=== PATIENT | female | born 1970 | race Caucasian/White ===

== ENCOUNTER 2018-01-08 16:43 | Emergency (ER) | payer MEDICAID, SELFPAY ==
[2018-01-08 16:45] VITALS: BP 117/99; PULSE 90; RESP 15; TEMP 36.8; O2SAT 98; BMI 26.9
--- NOTE | 2018-01-08 17:03 | ED.VISSUMM ---
- ER Visit Summary Date of Service: 01/08/18 Chief Complaint: Right leg pain History of Present Illness: The patient is a 47 F presents to the emergency department with right leg pain. The patient does have the symptoms for the past month. She does have a history of diabetes that is poorly controlled. She states that she has a dull, burning pain down her right leg. It is worse in the morning. She denies any weakness. She has not had no trauma. She denies any back pain or trouble urinating. She states it is from the mid thigh down the leg. She has not taken anything for the pain. She states she never had pain like this before. It does not involve the left leg. It is not made worse with ambulation. She has no other claudication symptoms. Physical Examination: Vital signs reviewed General: Well-nourished, well-developed Head: Normocephalic, atraumatic Eyes: Pupils equal and reactive, extraocular muscles intact Neck, supple, no lymphadenopathy Heart: Regular rate and rhythm Respiratory: No distress, clear bilaterally Abdomen: Soft, nontender, nondistended, no peritoneal signs Back: Nontender Extremities: Nontender, no edema, no cords Skin: Normal color no rash Neuro: Alert and oriented, no focal or lateralizing deficits Test Results: [] Emergency Department Course and Treatment: The patient has normal pulses of the lower extremity. There is no pain with palpation. There are no palpable cords. Her symptoms are in a stocking glove type distribution. Her reflexes are normal. I do feel this is more of a peripheral neuropathy. I did assessment counselor patient she may need outpatient EMG. She will be started on Neurontin for pain control. She does have follow-up in place with Dr. Dill. She will be discharged home. Treatment Plan: [] Disposition: Discharge Impression:. Neuropathy right leg This note was generated with [employer] dictation software. It may contain incorrect words, spelling, and punctuation that were not noted in review of the chart prior to signing ED Disposition - Plan for ED Patient: Chief Complaint: Lower Extremity Injury Instructions: ED Neuropathy Peripheral Prescriptions: Gabapentin [Neurontin] 100 mg PO TID #30 cap Referrals: Ran Dill MD [Primary Care Provider] -
--- NOTE | 2018-01-08 17:06 | ED.DCSUM_ITS ---
- ER Visit Summary Date of Service: 01/08/18 Chief Complaint: Right leg pain History of Present Illness: The patient is a 47 F presents to the emergency department with right leg pain. The patient does have the symptoms for the past month. She does have a history of diabetes that is poorly controlled. She states that she has a dull, burning pain down her right leg. It is worse in the morning. She denies any weakness. She has not had no trauma. She denies any back pain or trouble urinating. She states it is from the mid thigh down the leg. She has not taken anything for the pain. She states she never had pain like this before. It does not involve the left leg. It is not made worse with ambulation. She has no other claudication symptoms. Physical Examination: Vital signs reviewed General: Well-nourished, well-developed Head: Normocephalic, atraumatic Eyes: Pupils equal and reactive, extraocular muscles intact Neck, supple, no lymphadenopathy Heart: Regular rate and rhythm Respiratory: No distress, clear bilaterally Abdomen: Soft, nontender, nondistended, no peritoneal signs Back: Nontender Extremities: Nontender, no edema, no cords Skin: Normal color no rash Neuro: Alert and oriented, no focal or lateralizing deficits Test Results: [] Emergency Department Course and Treatment: The patient has normal pulses of the lower extremity. There is no pain with palpation. There are no palpable cords. Her symptoms are in a stocking glove type distribution. Her reflexes are normal. I do feel this is more of a peripheral neuropathy. I did certified drug counselor patient she may need outpatient EMG. She will be started on Neurontin for pain control. She does have follow-up in place with Dr. Dill. She will be discharged home. Treatment Plan: [] Disposition: Discharge Impression:. Neuropathy right leg This note was generated with [employer] dictation software. It may contain incorrect words, spelling, and punctuation that were not noted in review of the chart prior to signing ED Disposition - Plan for ED Patient: Chief Complaint: Lower Extremity Injury Instructions: ED Neuropathy Peripheral Prescriptions: Gabapentin [Neurontin] 100 mg PO TID #30 cap Referrals: Ran Dill MD [Primary Care Provider] -
[2018-01-08 17:35] VITALS: BP 129/66; PULSE 54; RESP 16; O2SAT 98
== END 2018-01-08 17:36 | disposition home or self-care (01) ==
PROVIDERS: Emergency Provider Emergency Medicine; Family Provider Family Medicine; PCP Family Medicine
DX: E11.42 Type 2 diabetes mellitus with diabetic polyneuropathy (principal); E11.65 Type 2 diabetes mellitus with hyperglycemia; Z79.84 Long term (current) use of oral hypoglycemic drugs; Z79.02 Long term (current) use of antithrombotics/antiplatelets; Z79.899 Other long term (current) drug therapy
CPT/HCPCS: 99282

== ENCOUNTER 2018-03-02 18:07 | Emergency (ER) | payer MEDICAID, SELFPAY ==
[2018-03-02 18:09] VITALS: BP 113/92; PULSE 90; RESP 18; TEMP 36.7; O2SAT 98; BMI 26.2
[2018-03-02 19:52] LABS: Absolute Lymphocyte Count 3.31 X10^3/ul (0.83-4.51); Absolute Neutrophil Count 7.4 X10^3/uL (2.0-7.7); Basophil# 0.05 X10^3/uL; Basophil% 0.4 % (0-1); Eosinophil# 0.39 X10^3/uL; Eosinophils% 3.3 % (0-5); Hemoglobin 15.9 g/dl (12.0-15.0); Lymphocyte # 3.31 X10^3/ul (4.0); Lymphocyte % 28.2 % (19-41); Mean Corp Hgb Conc 33.8 g/gl (32-36); Mean Corpuscular Volume 94.6 fL (81-99); Mean Platelet Vol. 11.7 fl (6.2-12.0); Monocyte# 0.64 X10^3/uL; Monocyte% 5.4 % (0-10); Neutrophil # 7.35 X10^3/uL (2.7-7.7); Neutrophil % 62.6 % (47-70); Platelet Count 185 K/mm3 (150-450); RBC Distribution Width CV 12.5 % (11.6-14.6); RBC Distribution Width SD 42.9 fl (35.1-43.9); Red Blood Count 4.97 M/mm3 (4.2-5.4); White Blood Count 11.8 K/mm3 (4.4-11.0)
[2018-03-02 19:53] LABS: POSITIVE COUNT NO; POSITIVE DIFFERENTIAL NO; POSITIVE MORPHOLOGY NO
[2018-03-02 20:04] LABS: Anion Gap 6 (5-15); BUN 12 mg/dL (7-18); BUN/Creat Ratio 11.9 RATIO (10-20); Calcium,Total 9.2 mg/dL (8.5-10.1); Chloride 105 mmol/L (98-107); Creatinine, Serum 1.01 mg/dL (0.55-1.02); EST Glomerular Filtration Rate 63 mL/min (>60); Est Glom Filt Rate - Afr Amer 76 mL/min (>60); Estimated Creatinine Clearance 67.68 ml/min; Glucose 115 mg/dL (74-106); Potassium 3.7 mmol/L (3.5-5.1); Sodium Level 140 mmol/L (136-145)
[2018-03-02 20:06] LABS: Amphetamine Urine VISTA NEGATIVE (<1000 ng/mL); Barbiturate Urine VISTA NEGATIVE (< 200 ng/mL); Benzodiazepine Urine VISTA NEGATIVE (< 200 ng/mL); Cocaine Urine VISTA NEGATIVE (< 300 ng/mL); Ecstacy Urine VISTA NEGATIVE (< 500 ng/mL); Methadone Urine VISTA NEGATIVE (< 300 ng/mL); PCP Urine VISTA NEGATIVE (< 25 ng/mL); THC Urine VISTA NEGATIVE (< 50 ng/mL); Vista UDS pH Range 6
[2018-03-02 20:12] VITALS: RESP 17
[2018-03-02 20:27] VITALS: BP 109/80; PULSE 74; RESP 18; O2SAT 97
[2018-03-02 20:36] LABS: Pregnancy, Serum, hCG Quali. NEGATIVE Negative (0-9 Nonpreg)
[2018-03-02 22:02] VITALS: RESP 18
--- NOTE | 2018-03-02 23:14 | ED.DEP ---
ED Disposition - Plan for ED Patient: Chief Complaint: Depression Instructions: ED Depression Referrals: Ran Dill MD [Primary Care Provider] - Counseling,Center [GROUP OF PHYSICIANS] -
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
[2018-03-02 23:26] VITALS: BP 141/85; PULSE 75; RESP 16; O2SAT 97
== END 2018-03-02 23:28 | disposition home or self-care (01) ==
PROVIDERS: Emergency Provider Emergency Medicine; Family Provider Family Medicine; PCP Family Medicine
DX: F32.9 Major depressive disorder, single episode, unspecified (principal); E11.40 Type 2 diabetes mellitus with diabetic neuropathy, unspecified; F17.200 Nicotine dependence, unspecified, uncomplicated; Z79.84 Long term (current) use of oral hypoglycemic drugs; Z79.02 Long term (current) use of antithrombotics/antiplatelets; Z79.1 Long term (current) use of non-steroidal anti-inflammatories (NSAID); Z79.899 Other long term (current) drug therapy
CPT/HCPCS: 80048; 80307; 80320; 84703; 85025; 99283; G0480

== ENCOUNTER 2018-03-21 23:49 | Emergency (ER) | payer MEDICAID, SELFPAY ==
[2018-03-21 23:50] VITALS: BP 166/87; PULSE 85; RESP 18; TEMP 35.7; O2SAT 98; BMI 26.0
--- NOTE | 2018-03-22 00:46 | ED.VISSUMM ---
- ER Visit Summary Date of Service: 03/22/18 Chief Complaint: [Headache] History of Present Illness: The patient is a 47 F [who presents the emergency department with headache. It started earlier this evening. She took her home migraine medications but it did not help. She has photophobia associated with it and nausea. She has a long history of migraine headaches. This is very similar to what she has had in the past. It is 8 out of 10. It is behind her right eye. No trauma no fevers no balance disturbances no numbness or tingling. 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 She has a history of diabetes but does not check her blood sugars and hyperlipidemia.] Physical Examination: [] Blood pressure 166/87 WN WD NAD PERRL EOMI MMM NECK supple and nontender, no masses RRR no murmur rub or gallop, no peripheral edema, symmetric radial pulses CTAB no respiratory distress ABDOMEN is soft and nontender, normal bowel sounds, no distension, no rebound or guarding SKIN is warm and dry no rashes Alert and Oriented x3, CN II-XII in tact, no motor or sensory deficits, gait normal No lymphadenopathy Test Results: [] Emergency Department Course and Treatment: [This is similar to prior headaches patient has no new neurologic findings. She will be treated empirically for headache with saline Reglan and Benadryl and Toradol. Like sugar was checked. Patient's blood sugar was 126. On reevaluation her headache had resolved. This time I do think she is safe for discharge home. She was given precautions for which to return and invited to come back to the emergency department for any concerns. She was encouraged to follow-up with her primary physician.] Treatment Plan: [] Disposition: [Discharge] Impression: [Headache] This note was generated with [employer] dictation software. It may contain incorrect words, spelling, and punctuation that were not noted in review of the chart prior to signing ED Disposition - Plan for ED Patient: Chief Complaint: Headache Referrals: Ran Dill MD [Primary Care Provider] -
[2018-03-22] MEDS: Ketorolac 30 MG/ML Syringe IV (00:51)
[2018-03-22] MEDS: Metoclopramide 10 MG/2 ML Vial IV (00:51)
[2018-03-22] MEDS: 0.9% Normal Saline 1,000 ML 1000 ML IV (00:51)
[2018-03-22] MEDS: DiphenhydrAMINE 50 MG/ML Syringe 25 MG IV (00:51)
[2018-03-22 01:05] LABS: Bedside Glucose 126 mg/dL (70-110)
--- NOTE | 2018-03-22 01:35 | ED.DEP ---
ED Disposition - Plan for ED Patient: Chief Complaint: Headache Instructions: ED Cephalgia Unspecified Referrals: Ran Dill MD [Primary Care Provider] - 5-7 Days
[2018-03-22 01:40] VITALS: BP 114/77; PULSE 77; RESP 18; O2SAT 98
== END 2018-03-22 01:42 | disposition home or self-care (01) ==
LOC: ED 03-22 00:57
PROVIDERS: Emergency Provider Emergency Medicine; Family Provider Family Medicine; PCP Family Medicine
DX: G43.909 Migraine, unspecified, not intractable, without status migrainosus (principal); I69.328 Other speech and language deficits following cerebral infarction; E11.9 Type 2 diabetes mellitus without complications; I10 Essential (primary) hypertension; Z79.84 Long term (current) use of oral hypoglycemic drugs; Z79.02 Long term (current) use of antithrombotics/antiplatelets; Z79.899 Other long term (current) drug therapy
CPT/HCPCS: 82962; 96361; 96374; 96375; 99283; J7030

== ENCOUNTER 2018-03-29 16:26 | Observation (INO) | payer MEDICAID, SELFPAY ==
[2018-03-29 16:28] VITALS: BP 131/95; PULSE 78; RESP 16; TEMP 36.3; O2SAT 96; BMI 25.8
[2018-03-29] MEDS: HYDROmorphone 1 MG/ML Syringe IV (17:04)
[2018-03-29] MEDS: Ondansetron 4 MG/2 ML Vial IV ×2 (17:04→21:47)
[2018-03-29] MEDS: 0.9% Normal Saline 1,000 ML 1000 ML IV (17:04)
[2018-03-29 17:05] VITALS: BP 138/75; PULSE 75; RESP 14; O2SAT 98
[2018-03-29 17:17] LABS: Absolute Lymphocyte Count 2.86 X10^3/ul (0.83-4.51); Absolute Neutrophil Count 5.4 X10^3/uL (2.0-7.7); Basophil# 0.06 X10^3/uL; Basophil% 0.6 % (0-1); Eosinophil# 0.36 X10^3/uL; Eosinophils% 3.9 % (0-5); Hematocrit 42.1 % (37-47); Hemoglobin 14.4 g/dl (12.0-15.0); Lymphocyte # 2.86 X10^3/ul (4.0); Lymphocyte % 30.7 % (19-41); Mean Corp Hgb Conc 34.2 g/gl (32-36); Mean Corpuscular Hgb 32.1 pg (27.0-32.0); Mean Platelet Vol. 11.7 fl (6.2-12.0); Monocyte# 0.61 X10^3/uL; Monocyte% 6.5 % (0-10); Neutrophil # 5.43 X10^3/uL (2.7-7.7); Neutrophil % 58.2 % (47-70); POSITIVE COUNT NO; POSITIVE DIFFERENTIAL NO; POSITIVE MORPHOLOGY NO; Platelet Count 180 K/mm3 (150-450); RBC Distribution Width SD 40.6 fl (35.1-43.9); Red Blood Count 4.48 M/mm3 (4.2-5.4); White Blood Count 9.3 K/mm3 (4.4-11.0)
[2018-03-29 17:32] LABS: ALB/GLOB Ratio 0.9 RATIO (0.9-2.4); AST(SGOT) 15 U/L (15-37); Alanine Aminotransfer ALT/SGPT 37 U/L (13-56); Albumin, Serum 3.8 g/dL (3.2-5.0); Alkaline Phosphatase 84 U/L (45-117); Anion Gap 6 (5-15); BUN 15 mg/dL (7-18); BUN/Creat Ratio 16.4 RATIO (10-20); Chloride 106 mmol/L (98-107); Creatinine, Serum 0.91 mg/dL (0.55-1.02); EST Glomerular Filtration Rate 70 mL/min (>60); Est Glom Filt Rate - Afr Amer 85 mL/min (>60); Estimated Creatinine Clearance 72.31 ml/min; Globulin 4.3 g/dL (2.2-4.2); Glucose 108 mg/dL (74-106); Lipase 497 U/L (73-393); Potassium 4.1 mmol/L (3.5-5.1); Protein, Total 8.1 g/dL (6.4-8.2); Sodium Level 140 mmol/L (136-145)
[2018-03-29 18:23] LABS: Lactic Acid 0.8 mmol/L (0.4-2.0)
--- NOTE | 2018-03-29 18:58 | ED.VISSUMM ---
- ER Visit Summary Date of Service: 03/29/18 Chief Complaint: [Abdominal pain] History of Present Illness: The patient is a 47 F [presents the emergency department complaint of abdominal pain ?3 days. Patient rates her pain a 10 out of 10. Patient describes nausea and pain in the epigastric region. Patient denies any vomiting. She denies any diarrhea. Patient states that she has had pancreatitis before and feels just like that. Patient states that she had 3 shots of vodka on the eighth of this month as she is a recovering alcoholic. Patient denies any fevers at home. She denies urinary symptoms. Patient has had her gallbladder removed.] Physical Examination: [HEENT-PERRLA, EOMI. Cranial nerves II through XII grossly intact. TMs clear. Mucous membranes moist. No adenopathy. Cardiovascular-regular rate and rhythm without murmur or ectopy Lungs-clear to auscultation, chest wall stable without crepitus or subcu emphysema Abdomen-normoactive bowel sounds, soft. Patient has tenderness in the epigastric region with some guarding. There is no rebound, rigidity, or perineal signs. Extremities-intact ?4, normal range of motion, normal pulses, atraumatic] Test Results: [CBC with differential obtained showed a white count of 9.3, hemoglobin 14, hematocrit 42, platelets 180. Chemistries unremarkable. LFTs were normal. Lipase was 197. Nightly was normal at 0.8.] Emergency Department Course and Treatment: [She was given a liter normal same fluid bolus and was treated with Dilaudid and Zofran. Patient continues to complain of significant discomfort.] Treatment Plan: [Admit] Disposition: [Admit] Impression: [Abdominal pain Pancreatitis] This note was generated with [employer] dictation software. It may contain incorrect words, spelling, and punctuation that were not noted in review of the chart prior to signing ED Disposition - Plan for ED Patient: Chief Complaint: Abd Pain Referrals: Ran Dill MD [Primary Care Provider] -
[2018-03-29 19:11] VITALS: BP 136/70; PULSE 80; RESP 14; O2SAT 98; BMI 25.8
--- NOTE | 2018-03-29 19:39 | PCM.HP.STD ---
Problem List (1) Diabetes mellitus type 2 in obese Status: Chronic (2) CHRONIC ALCOHOL USE DEPENDENCE Status: Chronic (3) Alcoholic pancreatitis Status: Acute (4) Dyslipidemia Status: Chronic (5) Depression Status: Chronic (6) History of right sided stroke Status: Acute History of Present Illness Date of Admission: 03/29/18 Chief Complaint: Abdominal pain for 3 days The patient is a 47 year old F with history of alcoholic pancreatitis, diabetes mellitus type 2, stroke and multiple relapses with alcohol abuse came to ER with abdominal pain for last 3 days. Patient has constant upper abdominal pain in the epigastric and umbilical region which get worse with food and drinking water associated with nausea. Patient denies vomiting, hematemesis, melena or hematochezia. Patient last alcohol drink was on 03/21/2018 and denies any alcohol withdrawal seizures including seizures hallucinations or tremors. In ED, lipase was found 497, albumin 3.8, lactic acid 0.8 and potassium 4.1. Patient had a stroke in the past with left-sided weakness and numbness. [] Past Medical History Past Medical History (Chronic Problems): Chronic Problems Diabetes mellitus type 2 in obese (Chronic) CHRONIC ALCOHOL USE DEPENDENCE (Chronic) Dyslipidemia (Chronic) Depression (Chronic) Allergies azithromycin Allergy (Verified 03/21/18 23:53) Rash doxycycline Allergy (Verified 03/21/18 23:53) Rash Penicillins Allergy (Verified 03/21/18 23:53) Rash Home Medications: Ambulatory Orders Medication Instructions Recorded Clonazepam [Klonopin] 2 mg PO TID 06/15/14 Quetiapine Fumarate [Seroquel] 100 mg PO QHS 06/15/14 Propranolol HCl [Inderal] 40 mg PO BID 01/18/16 Clopidogrel Bisulfate [Plavix] 75 mg PO QHS 07/03/16 Glimepiride [Amaryl] 2 mg PO DAILY 01/09/17 Atorvastatin Calcium [Lipitor] 80 mg PO QHS 03/29/18 Surgical History: cholecystectomy, hysterectomy, tonsillectomy Smoking Status: Current every day smoker Tobacco Use: Cigarettes - *Family History Maternal History Items: No pertinent history Review of Systems Constitutional: Denies: Chills, Fever, Weight Change HEENT: Denies: Head Aches, Sinus Congestion, Sinus Drainage Cardiovascular: Denies: Chest Pain, Palpitations Respiratory: Denies: Cough, Shortness of breath at rest, Sputum production Gastrointestinal: Reports: Abdominal Pain, Nausea. Denies: Hematemesis, Hematochezia, Melena, Vomiting Genitourinary: Denies: Dysuria Musculoskeletal: Denies: Joint Pain, Joint Tenderness Skin: Denies: Rash, Wounds Neurological: Denies: Numbness, Tingling, Focal weakness Psychiatric: Denies: Anxiety, Depression, Homicidal Ideations, Suicidal Ideations Hematologic/ Lymphatic: Denies: Easy Bruising, Easy Bleeding VTE Information - Inpt Only VTE Present on Admission: No VTE Mechan Device Prophylaxis: None VTE Pharm Prophylaxis ordered?: Yes Patient Problems: Active and Suspected Problems Alcoholic pancreatitis (Acute) History of right sided stroke (Acute) - Physical Exam General: Alert, Oriented x3, Cooperative HEENT: Atraumatic, PERRLA, EOMI, Normocephalic Neck: Supple, No JVD, Negative Carotid Bruits Lungs: Clear to auscultation, Normal air movement Cardiovascular: Regular rate, Regular Rhythm, Normal S1, Normal S2, No murmurs Abdomen: Bowel Sounds Present, Soft, Non-Distended, Hypoactive Bowel Sounds, Tender - Tenderness present over epigastric and umbilical region Extremities: No edema, Capillary Refill Less than 3 Seconds Skin: No rashes, No breakdown Musculoskeletal: No Tenderness to Palpation of Joints or Extremities, Arthritic Changes Neurological: Cranial nerves II-XII grossly intact Psych/Mental Status: Normal Affect, Appropriate Vital Signs Temp Pulse Resp BP Pulse Ox 97.3 F L 80 14 136/70 H 98 03/29/18 16:28 03/29/18 19:11 03/29/18 19:11 03/29/18 19:11 03/29/18 19:11 Oxygen Delivery Method Room Air Weight: 160 lb 0.889 oz Body Mass Index (BMI) 25.8 Finger Stick Blood Glucose 126 Laboratory Tests Past 24 Hrs 03/29/18 03/29/18 03/29/18 17:05 17:05 17:05 WBC 9.3 RBC 4.48 Hgb 14.4 Hct 42.1 MCV 94.0 MCH 32.1 H MCHC 34.2 RDW 12.0 RDW Differential 40.6 Plt Count 180 MPV 11.7 Immature Gran % (Auto) 0.100 Neut % (Auto) 58.2 Lymph % (Auto) 30.7 [place] % (Auto) 6.5 Eos % (Auto) 3.9 Baso % (Auto) 0.6 Absolute Neuts (auto) 5.4 Absolute Lymphs (auto) 2.86 Total Counted Not Reportable Sodium 140 Potassium 4.1 Chloride 106 Carbon Dioxide 28.0 Anion Gap 6 BUN 15 Creatinine 0.91 Estim Creat Clear Calc 72.31 Est GFR (MDRD) Af Amer 85 Est GFR (MDRD) Non-Af 70 BUN/Creatinine Ratio 16.4 Glucose 108 H Lactic Acid 0.8 Calcium 9.0 Total Bilirubin 0.50 AST 15 ALT 37 Alkaline Phosphatase 84 Total Protein 8.1 Albumin 3.8 Globulin 4.3 H Albumin/Globulin Ratio 0.9 Lipase 497 H Assessment/Plan All Active Problems Alcoholic pancreatitis (Acute) History of right sided stroke (Acute) The patient is a 47 year old F with history of alcoholic pancreatitis, diabetes mellitus type 2, stroke and multiple relapses with alcohol abuse came to ER with abdominal pain for last 3 days. Patient has constant upper abdominal pain in the epigastric and umbilical region which get worse with food and drinking water associated with nausea. Patient denies vomiting, hematemesis, melena or hematochezia. Patient last alcohol drink was on 03/21/2018 and denies any alcohol withdrawal seizures including seizures hallucinations or tremors. In ED, lipase was found 497, albumin 3.8, lactic acid 0.8 and potassium 4.1. 1. Acute on recurrent alcoholic pancreatitis: Patient is being admitted on [facility] floor. IV fluid normal saline. We will keep the patient n.p.o. except sips and chips. Says the pain tomorrow a.m. Follow-up lipase tomorrow a.m.. Monitor electrolytes, magnesium and kidney function. Monitor intake and output. Pain control, and supportive treatment. Lipid profile tomorrow a.m. 2. Chronic alcohol use and dependence: Patient was advised to quit alcohol. Currently, not in withdrawal. load manager consult for counseling. 3. Diabetes mellitus type 2: A1c tomorrow a.m. Accu-Chek before meals and at bedtime and cover with NovoLog sliding scale. 4. Other comorbidities include dyslipidemia, history of a stroke on Plavix and statin, anxiety and depression: Home medication reconciliation done. Noncompliance is big issue. Multiple comorbidities complicates the present care and expect difficult and delay recovery This note was generated with Dragon dictation software. Every effort was made to ensure accuracy, however computerized metal roofing mechanic mistakes may persist. Code Visit Inpatient E&M: 90107 Init Hosp L3
[2018-03-29 20:28] VITALS: BP 134/85; PULSE 58; RESP 18; TEMP 36.6; O2SAT 96
[2018-03-29 20:29] VITALS: BMI 25.7
[2018-03-29 21:07] LABS: GGTP 24 U/L (5-55); Magnesium 2.1 mg/dL (1.6-2.6)
[2018-03-29] MEDS: Enoxaparin 40 MG/0.4 ML Syringe SC (21:43)
[2018-03-29] MEDS: Senna/Docusate Sodium 1 Tablet 2 TABLET PO (21:43)
[2018-03-29] MEDS: Pantoprazole Sodium 40 MG Tablet PO (21:43)
[2018-03-29] MEDS: Morphine 2 MG/ML Syringe IV (21:44)
[2018-03-29] MEDS: 0.9% NaCl Peripheral Flush Adult/Peds IV (21:47)
[2018-03-29 21:50] LABS: Bedside Glucose 106 mg/dL (70-110)
[2018-03-30] MEDS: 0.9% NaCl Peripheral Flush Adult/Peds IV ×3 (01:31→20:51)
[2018-03-30] MEDS: Morphine 2 MG/ML Syringe IV ×5 (01:31→20:49)
[2018-03-30] MEDS: Lactated Ringers 1,000 ML 200 ML IV ×2 (01:32→06:29)
[2018-03-30 01:40] VITALS: BP 105/69; PULSE 62; RESP 16; TEMP 36.4; O2SAT 95
[2018-03-30 06:24] LABS: Absolute Lymphocyte Count 2.91 X10^3/ul (0.83-4.51); Absolute Neutrophil Count 4.8 X10^3/uL (2.0-7.7); Basophil# 0.05 X10^3/uL; Basophil% 0.6 % (0-1); Eosinophil# 0.34 X10^3/uL; Eosinophils% 3.9 % (0-5); Hematocrit 39.6 % (37-47); Hemoglobin 13.2 g/dl (12.0-15.0); Lymphocyte # 2.91 X10^3/ul (4.0); Lymphocyte % 33.6 % (19-41); Mean Corp Hgb Conc 33.3 g/gl (32-36); Mean Corpuscular Hgb 31.9 pg (27.0-32.0); Mean Corpuscular Volume 95.7 fL (81-99); Mean Platelet Vol. 12.1 fl (6.2-12.0); Monocyte# 0.58 X10^3/uL; Monocyte% 6.7 % (0-10); Neutrophil # 4.78 X10^3/uL (2.7-7.7); Neutrophil % 55.1 % (47-70); Platelet Count 157 K/mm3 (150-450); RBC Distribution Width CV 11.9 % (11.6-14.6); RBC Distribution Width SD 40.8 fl (35.1-43.9); Red Blood Count 4.14 M/mm3 (4.2-5.4); White Blood Count 8.7 K/mm3 (4.4-11.0)
[2018-03-30 06:29] LABS: POSITIVE COUNT NO; POSITIVE DIFFERENTIAL NO; POSITIVE MORPHOLOGY NO
[2018-03-30 06:36] LABS: Bedside Glucose 96 mg/dL (70-110)
[2018-03-30 06:43] LABS: Anion Gap 6 (5-15); BUN 14 mg/dL (7-18); BUN/Creat Ratio 17.2 RATIO (10-20); Calcium,Total 8.2 mg/dL (8.5-10.1); Chloride 108 mmol/L (98-107); Cholesterol 110 mg/dL (200); Creatinine, Serum 0.82 mg/dL (0.55-1.02); EST Glomerular Filtration Rate 80 mL/min (>60); Est Glom Filt Rate - Afr Amer 97 mL/min (>60); Estimated Creatinine Clearance 80.25 ml/min; Glucose 90 mg/dL (74-106); High Density Lipoprotein 20 mg/dL; Lipase 77 U/L (73-393); Potassium 3.7 mmol/L (3.5-5.1); Sodium Level 143 mmol/L (136-145); Triglycerides 254 mg/dL; Very Low Density Lipoprotein 51 mg/dL (5-40)
[2018-03-30 07:13] VITALS: O2SAT 92
[2018-03-30 07:40] VITALS: BP 101/68; PULSE 53; RESP 16; TEMP 35.9; O2SAT 97
[2018-03-30] MEDS: Pantoprazole Sodium 40 MG Tablet PO (07:47)
[2018-03-30 07:52] LABS: Hemoglobin A1c 6.9 % (4.2-6.3)
--- NOTE | 2018-03-30 08:31 | PCM.PN.HOSP ---
Patient Problems: Active and Suspected Problems Alcoholic pancreatitis (Acute) History of right sided stroke (Acute) Subjective: 37-year-old lady with history of chronic alcohol abuse, diabetes mellitus type 2 recurrent pancreatitis who presented with abdominal pain and assessment of acute pancreatitis made admitted to regular nursing floor for further management 03/30/2018: Patient seen still complains of significant abdominal discomfort Objective: GENERAL: cooperative HEENT: Clear conjunctiva, NECK; supple, normal thyroid, CHEST: Clear to auscultation bilaterally, HEART: Regular S1 S2, no audible murmurs ABDOMEN: soft, epigastric discomfort RECTAL: deferred EXTREMITIES: No edema, no clubbing, SCIENCE MANAGER: Awake; no lateralizing signs. SKIN: No Rash Vitals/I&O's: Vital Signs Temp Pulse Resp BP Pulse Ox 96.7 F L 53 L 16 101/68 97 03/30/18 07:40 03/30/18 07:40 03/30/18 07:40 03/30/18 07:40 03/30/18 07:40 Oxygen Delivery Method Room Air Weight: 72.5 kg Body Mass Index (BMI) 25.7 Intake and Output for Last 24 Hours 03/28/18 03/29/18 03/30/18 23:59 23:59 23:59 Intake Total 1019 / 1019 Balance 1019 / 1019 Laboratory Results 03/29/18 21:43: POC Glucose 106 03/30/18 05:20: WBC 8.7, RBC 4.14 L, Hgb 13.2, Hct 39.6, MCV 95.7, MCH 31.9, MCHC 33.3, RDW 11.9, RDW Differential 40.8, Plt Count 157, MPV 12.1 H, Immature Gran % (Auto) 0.100, Neut % (Auto) 55.1, Lymph % (Auto) 33.6, [place] % (Auto) 6.7, Eos % (Auto) 3.9, Baso % (Auto) 0.6, Absolute Neuts (auto) 4.8, Absolute Lymphs (auto) 2.91, Total Counted Not Reportable 03/30/18 05:20: Sodium 143, Potassium 3.7, Chloride 108 H, Carbon Dioxide 29.0, Anion Gap 6, BUN 14, Creatinine 0.82, Estim Creat Clear Calc 80.25, Est GFR (MDRD) Af Amer 97, Est GFR (MDRD) Non-Af 80, BUN/Creatinine Ratio 17.2, Glucose 90, Calcium 8.2 L, Triglycerides 254 H, Cholesterol 110, LDL Cholesterol 39, VLDL Cholesterol 51 H, HDL Cholesterol 20 L, Lipase 77 03/30/18 05:20: Hemoglobin A1c 6.9 H 03/30/18 06:28: POC Glucose 96 Current Medications Acetaminophen (Tylenol) 650 mg PO Q4H PRN PRN PRN Reason: pain/fever Al Hydroxide/Mg Hydroxide (Mylanta Ii) 30 ml PO Q6H PRN PRN PRN Reason: Gastric burning Dextrose (D50w Syringe) 0 gm IV X1 PRN; Protocol PRN Reason: Hypoglycemia Enoxaparin Sodium (Lovenox) 40 mg SC DAILY@1000 GUILLERMO Last Admin: 03/29/18 21:43 Dose: 40 mg Glucagon () 1 mg IM .X1 PRN PRN Reason: Hypoglycemia Lactated Ringer's () 1,000 mls @ 200 mls/hr IV .Q5H [facility] Stop: 03/30/18 10:44 Last Admin: 03/30/18 06:29 Dose: 200 mls/hr Insulin Human Lispro (Humalog Kwikpen (Bkc)) 0 unit SQ ACHS GUILLERMO PRN Reason: Protocol Last Admin: 03/30/18 06:31 Dose: Not Given Magnesium Hydroxide (Milk Of Magnesia) 30 ml PO DAILY PRN PRN PRN Reason: Constipation Morphine Sulfate () 2 mg IV Q3H PRN PRN PRN Reason: SEVERE PAIN (6-10/10) Last Admin: 03/30/18 06:29 Dose: 2 mg Ondansetron HCl (Zofran) 4 mg IV Q6H PRN PRN PRN Reason: NAUSEA Last Admin: 03/29/18 21:47 Dose: 4 mg Pantoprazole Sodium (Protonix) 40 mg PO DAILY [facility] Last Admin: 03/30/18 07:47 Dose: 40 mg Promethazine HCl (Phenergan) 12.5 mg IV Q6H PRN PRN PRN Reason: NAUSEA/VOMITING Senna/Docusate Sodium (Senokot-S, Gia-Colace) 2 tablet PO BID [facility] Last Admin: 03/29/18 21:43 Dose: 2 tablet Sodium Chloride () 5 - 30 ml IV UD PRN PRN Reason: SALINE FLUSH Last Admin: 03/30/18 01:31 Dose: 10 ml Medical Necessity - Tobacco Use Smoking Status: Current every day smoker Tobacco Use: Cigarettes Assessment/Plan All Active Problems Alcoholic pancreatitis (Acute) History of right sided stroke (Acute) 37-year-old lady with history of chronic alcohol abuse, diabetes mellitus type 2 recurrent pancreatitis who presented with abdominal pain and assessment of acute pancreatitis made admitted to regular nursing floor for further management 1. Acute on chronic recurrent alcoholic pancreatitis: Patient has been admitted to regular nursing floor managed conservatively with bowel rest PPI, antinausea medication, and pain meds 2. Chronic alcohol dependence patient was counseled on cessation 3. Diabetes mellitus type 2: Did continue with home regimen in addition to Accu-Cheks before meals and at bedtime with sliding scale coverage 4. Dyslipidemia 5. History of previous CVA patient is on Plavix 6. DVT prophylaxis on enoxaparin Active Medications Acetaminophen (Tylenol) 650 mg PO Q4H PRN PRN PRN Reason: pain/fever Al Hydroxide/Mg Hydroxide (Mylanta Ii) 30 ml PO Q6H PRN PRN PRN Reason: Gastric burning Dextrose (D50w Syringe) 0 gm IV X1 PRN; Protocol PRN Reason: Hypoglycemia Enoxaparin Sodium (Lovenox) 40 mg SC DAILY@1000 GUILLERMO Last Admin: 03/29/18 21:43 Dose: 40 mg Glucagon () 1 mg IM .X1 PRN PRN Reason: Hypoglycemia Lactated Ringer's () 1,000 mls @ 200 mls/hr IV .Q5H GUILLERMO Stop: 03/30/18 10:44 Last Admin: 03/30/18 06:29 Dose: 200 mls/hr Insulin Human Lispro (Humalog Kwikpen (Bkc)) 0 unit SQ ACHS GUILLERMO PRN Reason: Protocol Last Admin: 03/30/18 06:31 Dose: Not Given Magnesium Hydroxide (Milk Of Magnesia) 30 ml PO DAILY PRN PRN PRN Reason: Constipation Morphine Sulfate () 2 mg IV Q3H PRN PRN PRN Reason: SEVERE PAIN (6-10/10) Last Admin: 03/30/18 06:29 Dose: 2 mg Ondansetron HCl (Zofran) 4 mg IV Q6H PRN PRN PRN Reason: NAUSEA Last Admin: 03/29/18 21:47 Dose: 4 mg Pantoprazole Sodium (Protonix) 40 mg PO DAILY [facility] Last Admin: 03/30/18 07:47 Dose: 40 mg Promethazine HCl (Phenergan) 12.5 mg IV Q6H PRN PRN PRN Reason: NAUSEA/VOMITING Senna/Docusate Sodium (Senokot-S, Gia-Colace) 2 tablet PO BID [facility] Last Admin: 03/29/18 21:43 Dose: 2 tablet Sodium Chloride () 5 - 30 ml IV UD PRN PRN Reason: SALINE FLUSH Last Admin: 03/30/18 01:31 Dose: 10 ml Code Visit Inpatient E&M: 49430 Subs Hosp L3
[2018-03-30] MEDS: Enoxaparin 40 MG/0.4 ML Syringe SC (10:28)
[2018-03-30] MEDS: Senna/Docusate Sodium 1 Tablet 2 TABLET PO (10:28)
--- NOTE | 2018-03-30 10:45 | CASEMGMT ---
NESSA MENDOZA NOTE: D/C PLAN: HOME. NESSA MENDOZA Face to Face with patient for initial transition planning/care coordination assessment. NESSA MENDOZA introduced self and role at [facility]. Patient resting in bed, alert and oriented. Patient willing to participate in assessment and is able to answer all questions appropriately. Care providers and demographics verified. Pt reports she is but has a boyfriend who is an alcoholic. Pt reports she has a history of drinking but i've been clean for 22 year. Pt reports that she was trying to get her boyfriend to stop drinking but when he wouldn't, she started to feel hopeless and stated she relapsed and started drinking. Pt reports her is aware of this situation and is aware she is in the hospital and stated, yes he knows but he isn't happy about it. Pt reports she is involved @ the [facility] and her Rehab Artifacts Conservator there is Marta. Pt reports she is still currently active/involved there and has appts there every and that she does not feel she need any further intervention or counseling services. Pt denies having any suicidal thoughts or ideations. Pt states she is living with a friend in [place] in a cabin and they are discussing options of making this her permanent residence. Pt states is independent with ambulation and ADL's and denies having any needs. Discussed Advanced Directives with patient and she states she is interested in talking with REYNOLD re: HPOA. Referral made to REYNOLD Woo. Pt wishes to discharge home, denies need for home health at this time. Pt states she has no further needs or concerns at this time. CM to follow for discharge planning needs that may arise.
[2018-03-30 12:00] LABS: Bedside Glucose 118 mg/dL (70-110)
--- NOTE | 2018-03-30 12:34 | CASEMGMT ---
Social Work Met with pt in room and introduced self. Pt requesting information on advance directives. SW provided verbal explanation of living will and health care power of contact center professional. Pt does not wish to complete at this time. Written information provided with instruction to notify SW if she would like to complete documents during hospital stay. No further needs at this time. MAGDALENO [place]
[2018-03-30 13:40] VITALS: BP 130/73; PULSE 50; RESP 18; TEMP 36.9; O2SAT 94
[2018-03-30] MEDS: Mag Hydrox/Al Hydrox/Simeth 30 ML UDC PO (13:41)
--- NOTE | 2018-03-30 15:41 | CHAPLAIN ---
Type of Pastoral Visit _x__ Initial Visit ___ Follow-up Visit ___ On-call Visit ___ General Patient Visit ___ Spiritual Assessment ___ Family Conference ___ Bereavement ___ Rapid Response ___ Code Blue ___ Other (describe below) Pastoral Care Referral From _x__ Patient ___ Family ___ Nurse ___ Physician ___ Database Support ___ Credit Underwriter ___ Other (describe below) Sacrament/Intervention _x__ Active listening ___ Anointing ___ Holiness ___ Bereavement ___ Communion _x__ Talya exploration ___ _x__ Life review _x__ Prayer ___ Reconciliation ___ Sacrament of Sick _x__ Supportive presence ___ Wedding ___ Other (describe below) Pastoral Comments patient speaks of many years of sobriety and then return to alcohol; pt speaks of her talya and understanding of 12 step program and God's role in her life
[2018-03-30 16:51] LABS: Bedside Glucose 165 mg/dL (70-110)
[2018-03-30 20:35] VITALS: BP 136/81; PULSE 50; RESP 16; TEMP 36.9; O2SAT 97
[2018-03-30] MEDS: Diphenoxylate/Atrop 1 Tablet PO (20:49)
[2018-03-30 23:56] LABS: Bedside Glucose 125 mg/dL (70-110)
[2018-03-31 02:20] VITALS: BP 121/81; PULSE 59; RESP 16; TEMP 36.8; O2SAT 97
[2018-03-31] MEDS: Mag Hydrox/Al Hydrox/Simeth 30 ML UDC PO (02:24)
[2018-03-31] MEDS: 0.9% NaCl Peripheral Flush Adult/Peds IV ×2 (02:24→06:42)
[2018-03-31] MEDS: Morphine 2 MG/ML Syringe IV ×2 (02:24→06:41)
[2018-03-31 06:51] LABS: Bedside Glucose 109 mg/dL (70-110)
[2018-03-31 07:02] VITALS: O2SAT 92
--- NOTE | 2018-03-31 08:30 | PCM.DC ---
- Discharge Diagnoses Current Active Problems: Current Active and Chronic Problems Diabetes mellitus type 2 in obese (Chronic) CHRONIC ALCOHOL USE DEPENDENCE (Chronic) Alcoholic pancreatitis (Acute) Dyslipidemia (Chronic) Depression (Chronic) History of right sided stroke (Acute) You will use the following diet at home:: Fluid restricted (specify 2000 mls, 1500 mls) - 1800 Your food should be the consistency of: Regular Discharge Activity: Return to Normal Activity Allergies/Adverse Reactions: Allergies azithromycin Allergy (Verified 03/21/18 23:53) Rash doxycycline Allergy (Verified 03/21/18 23:53) Rash Penicillins Allergy (Verified 03/21/18 23:53) Rash Medications to take at Discharge Clonazepam [Klonopin] 2 mg PO TID 06/15/14 Quetiapine Fumarate [Seroquel] 100 mg PO QHS 06/15/14 Propranolol HCl [Inderal (Beta Valencia)] 40 mg PO BID 01/18/16 Clopidogrel Bisulfate [Plavix] 75 mg PO QHS 07/03/16 Glimepiride [Amaryl] 2 mg PO DAILY 01/09/17 Atorvastatin Calcium [Lipitor] 80 mg PO QHS 03/29/18 Acetaminophen [Tylenol Tablet] 650 mg PO Q4H PRN PRN tablet 03/31/18 Pantoprazole Sodium [Protonix] 40 mg PO DAILY #30 tab 03/31/18 The following prescriptions were given: Pantoprazole Sodium [Protonix] 40 mg PO DAILY #30 tab Primary Care Physician: Ran Dill MD [Primary Care Provider] - Test Results: Test results from this visit will be discussed in further detail at your follow-up appointment, if applicable. Proposed Discharge Date: 03/31/18
--- NOTE | 2018-03-31 08:36 | PCM.DC.SUM ---
Discharge Date and Diagnosis - Problem List Patient Problems: Active and Suspected Problems Alcoholic pancreatitis (Acute) History of right sided stroke (Acute) Date of Admission: 03/29/18 Date of Discharge: 03/31/18 - Primary Discharge Diagnosis Active and Suspected Problems Alcoholic pancreatitis (Acute) History of right sided stroke (Acute) - Secondary Discharge Diagnosis Chronic Problems Diabetes mellitus type 2 in obese (Chronic) CHRONIC ALCOHOL USE DEPENDENCE (Chronic) Dyslipidemia (Chronic) Depression (Chronic) Hospital Course and Treatment Summary of Care Provided: 37-year-old lady with history of chronic alcohol abuse, diabetes mellitus type 2 recurrent pancreatitis who presented with abdominal pain and assessment of acute pancreatitis made admitted to regular nursing floor for further management 1. Acute on chronic recurrent alcoholic pancreatitis: Patient has been admitted to regular nursing floor managed conservatively with bowel rest PPI, antinausea medication, and pain meds. Patient condition did improve and was discharged home after tolerating regular meals 2. Chronic alcohol dependence patient was counseled on cessation 3. Diabetes mellitus type 2: Did continue with home regimen in addition to Accu-Cheks before meals and at bedtime with sliding scale coverage 4. Dyslipidemia 5. History of previous CVA with residual right upper extremity weakness; patient is on Plavix 6. DVT prophylaxis on enoxaparin Discharge Activity: Return to Normal Activity Home Medications: Medications to take at Discharge Clonazepam [Klonopin] 2 mg PO TID 06/15/14 Quetiapine Fumarate [Seroquel] 100 mg PO QHS 06/15/14 Propranolol HCl [Inderal (Beta Valencia)] 40 mg PO BID 01/18/16 Clopidogrel Bisulfate [Plavix] 75 mg PO QHS 07/03/16 Glimepiride [Amaryl] 2 mg PO DAILY 01/09/17 Atorvastatin Calcium [Lipitor] 80 mg PO QHS 03/29/18 Acetaminophen [Tylenol Tablet] 650 mg PO Q4H PRN PRN tablet 03/31/18 Pantoprazole Sodium [Protonix] 40 mg PO DAILY #30 tab 03/31/18 Following Prescrptions Were Given to Patient: Pantoprazole Sodium [Protonix] 40 mg PO DAILY #30 tab Primary Care Physician: Ran Dill MD [Primary Care Provider] - Disposition: Home Minutes spent on discharge:: 35 Patient Condition:: Stable Medical Necessity - Tobacco Use Smoking Status: Current every day smoker Tobacco Use: Cigarettes Meaningful Use Info Meaningful Use Diagnoses (Choose all that apply): None applicable Code Visit Inpatient E&M: 66975 Disch Hosp
[2018-03-31 09:24] VITALS: BP 109/63; PULSE 69; RESP 16; TEMP 36.4; O2SAT 99
[2018-03-31] MEDS: Pantoprazole Sodium 40 MG Tablet PO (09:29)
[2018-03-31 12:11] LABS: Bedside Glucose 178 mg/dL (70-110)
== END 2018-03-31 12:30 | disposition home or self-care (01) ==
LOC: ED 17:28 → MS3 19:51
PROVIDERS: Admitting Provider Internal Medicine; Emergency Provider Emergency Medicine; Family Provider Family Medicine; PCP Family Medicine; Visit Provider Internal Medicine
DX: K85.20 Alcohol induced acute pancreatitis without necrosis or infection (principal); E11.9 Type 2 diabetes mellitus without complications; E78.5 Hyperlipidemia, unspecified; F32.9 Major depressive disorder, single episode, unspecified; Z79.899 Other long term (current) drug therapy; Z79.02 Long term (current) use of antithrombotics/antiplatelets; K86.1 Other chronic pancreatitis; F10.20 Alcohol dependence, uncomplicated; I69.351 Hemiplegia and hemiparesis following cerebral infarction affecting right dominant side; F17.210 Nicotine dependence, cigarettes, uncomplicated; Z91.19 Patient's noncompliance with other medical treatment and regimen; F41.9 Anxiety disorder, unspecified
CPT/HCPCS: 36415; 80048; 80053; 80061; 82962; 82977; 83036; 83605; 83690; 83735; 85025; 96361; 96374; 96375; 96376; 97802; 99218; 99282; 99406; J7030; J7120; A4216; G0378; J2405

== ENCOUNTER 2018-05-02 09:00 | Outpatient (RCR) | payer MEDICAID, SELFPAY ==
--- NOTE | 2018-05-02 10:03 | BH.SGPN.GN ---
Behaviors/Verbalizations/Mental Status: []Client alert and oriented, disheveled appearance. Eye contact good. Motor activity slowed. Speech within normal limits. Affect flat, mood dysthymic Thoughts linear, logical, no signs of hallucinations or delusions. Client Response/Progress/Benefit: []Client responded well to session, quiet, but participating when prompted. Client discussed things in life that keep people stuck from obtaining mental wellness. Client listed things she would like to get rid of in her life that are holding her back from improved mental wellness. Client identified ?love for someone who doesn?t deserve it,? fear of hurting, not being in control, depression, and anxiety. Client shared if she removed these things she would feel confident. Client participated in the activity that promoted emotional release of things holding client back. Client reported the activity helped client relieve emotions in the moment and feel empowered. Client appeared to benefit from identifying what she would like to remove from her life in order to obtain improved mental wellness.
--- NOTE | 2018-05-02 11:05 | BH.SGPN.GN ---
Behaviors/Verbalizations/Mental Status: []Client alert and oriented, disheveled appearance. Eye contact good. Motor activity slowed. Speech within normal limits. Affect flat, mood dysthymic. Thoughts linear, logical, no signs of hallucinations or delusions. Client Response/Progress/Benefit: []Client responded well to session, participating when prompted. Client created a 30-day plan to help client get rid of one of the stressors holding her back from improved mental wellness. Client?s 30-day plan was ?no more? lack of self-care. Client stated she picked this stressor because it client reports she ?always puts others before me? which causes client to feel burnout. Client appeared to benefit from creating a 30-day action plan. No progress at time this as it is client?s first day in IOP. Client to continue IOP to prevent decompensation and reduce depression.
--- NOTE | 2018-05-03 09:05 | BH.SGPN.GN ---
Behaviors/Verbalizations/Mental Status: [] Pt eye contact fair, casually dressed, motor activity slowed, speech normal rate and tone, mood dysthymic, constricted affect (unclear if pt's hx of stroke contributes to limited expression of emotions), thoughts linear and logical, no evidence of delusions or hallucinations. Reviewed client?s symptom tracker, no signs of suicidal ideation, plan, or intent as of today. Client Response/Progress/Benefit: []Pt reported yesterday was her first day in the program, which went really well. Pt shared still feeling a bit anxious, but believes this program can be helpful. Pt shared a positive yesterday was getting a chance to spend time with her neighbor. Pt reported she often doesn't get to do anything outside the home because she tries to hide what goes on in her home with her boyfriend. Pt elaborated her boyfriend has OCD and lots of medical problems from years of alcoholism. Pt reported due to the difficulties inside the home she tends to stay inside and not do much. Pt reported she did go with her boyfriend to his step-moms house and had a positive time. Pt reported one of her biggest stressors is her boyfriend. Pt has insight into how her boyfriends actions are impacting her functioning. Pt seemed to benefit from support from peers. Pt to continue IOP level of care to decrease depression, improve daily functioning, and prevent decompensation. Narrative Note: []
--- NOTE | 2018-05-03 10:09 | BH.SGPN.GN ---
Behaviors/Verbalizations/Mental Status: []Client alert and oriented, casual dress. Eye contact good. Motor activity appropriate. Speech within normal limits. Affect congruent, mood euthymic. Thoughts linear, logical, no signs of hallucinations or delusions. Client Response/Progress/Benefit: []Client responded well to session, attentive in discussion and taking notes. Client created a visual representation of her current and desired realities in regards to mental wellness. In client?s current reality client described struggling to feel capable of managing all of her stressors and feeling overwhelmed by guilt. Shared desired reality is feeling more capable of communicating with supports and setting healthier boundaries, as well as spending more time on self-care. Client appeared to benefit from gaining awareness of what her current and desired realities look like as well as reflecting on progress she has made. Client to continue IOP to promote gains and increase consistency of healthy coping and communication skills. Narrative Note: []
--- NOTE | 2018-05-03 11:15 | BH.SGPN.GN ---
Behaviors/Verbalizations/Mental Status: []Client alert and oriented, casual dress. Eye contact good. Motor activity appropriate. Speech within normal limits. Affect congruent, mood anxious and euthymic. Thoughts linear, logical, no signs of hallucinations or delusions. Client Response/Progress/Benefit: []Client responded well to session, actively listening throughout. With assistance, client identified barriers in client?s control that are keeping her from getting to desired reality such as negative thinking, guilt, and lack of motivation. Client engaged in the group activity and was able to develop strategies to help overcome these barriers. Client reflected on the activity and shared importance of assistance from others on overcoming barriers. Client set a goal to overcome the barrier of negative self-talk by using affirmations and challenging negative thoughts. Client appeared to benefit from problem-solving barriers in the moment. Progress noted as shown by client?s increased engagement and report of reduced depression. Recommended continued IOP tx to improve communication, decrease anxiety, and improve mood regulation. Narrative Note: []
--- NOTE | 2018-05-04 09:05 | BH.SGPN.GN ---
1 Behaviors/Verbalizations/Mental Status: [] Pt eye contact fair, casually dressed, motor activity slowed, speech normal rate and tone, mood dysthymic and agitated, constricted affect, thoughts linear and intact, no evidence of delusions or hallucinations. Reviewed client?s symptom tracker, no signs of suicidal ideation, plan, or intent as of today. Client Response/Progress/Benefit: [] Client reported she is feeling agitated and irritable this morning. Client shared her living situation is contributing to her agitation. Client elaborated that her boyfriend has OCD and is frustrated that when she leaves the house and asked him to complete certain house task when she gets back he has not done anything. Client shared she questions if she is expecting too much of them, however when she thinks about it she even showed him yesterday how to wash the dishes and he still did not complete the task. Client reported just feeling completely frustrated with her boyfriend and unsure of what she needs to do about it. Client reported 1 think she can do this weekend is to read because it something that she really enjoys doing for herself. Client living situation she is to be a barrier to treatment progress. Client to continue IOP level of care to stabilize moods, increased healthy coping, and prevent decompensation. Narrative Note: []
--- NOTE | 2018-05-04 10:12 | BH.SGPN.GN ---
Behaviors/Verbalizations/Mental Status: []Client alert and oriented, casual dress, hygiene fair. Eye contact good. Motor activity slowed. Speech within normal limits. Affect constricted, mood anxious, depressed. Thoughts linear, logical, no signs of hallucinations or delusions. Client Response/Progress/Benefit: []Client responded well to session, contributing to discussion. Client discussed coping skills with the group and shared coping skills help people deal with stress and one learns coping skills from childhood. ?Client shared learning to weigh the pros and cons can help one more effectively cope. Client participated in the group activity and recognized that when the group did not succeed they blamed one another. Client shared this can connect to coping with situations in life ?because it?s harder to cope when we are frustrated.? Client appeared to benefit from learning about how one learns coping skills and from using in the moment coping skills. Client to continue IOP to prevent decompensation and increase boundary setting.
--- NOTE | 2018-05-04 11:12 | BH.SGPN.GN ---
Behaviors/Verbalizations/Mental Status: []Client alert and oriented, dress casual. Eye contact fair. Motor activity appropriate. Speech within client's baseline. Affect constricted, mood dysthymic, anxious. Thoughts linear, logical, no signs of hallucinations or delusions. Client Response/Progress/Benefit: []Client responded well to session, engaged through note-taking and sharing when prompted. Client listened as the group discussed different categories of coping skills and reported understanding the importance of having a variety of coping skills. Client created a coping skills menu of coping skills client would like to start incorporating to improve mood and reduce anxiety. Client?s menu included listening to music, writing in a journal, reading, walking, and scheduling time for things client has enjoyed in the past. Client appeared to benefit from gaining numerous coping skills and from learning how each coping skill category benefits mental health. Client to continue IOP to prevent decompensation and increase mood stability.
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
--- NOTE | 2018-05-04 13:15 | BH.DR.ITP ---
Initial Treatment Plan - Patient Information Visit Information: ADMISSION DATE: EXPECTED LOS: 4-6 weeks Diagnoses:: Bipolar type II F 31.81 - Problems/Symptoms Problem #1:: Mood instability Symptom:: Depression, anhedonia, decreased energy, difficulty concentrating, biologic disruption of sleep and appetite Problem #2:: Anxiety Symptom:: Rumination, panic, intrusive traumatic memories
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
--- NOTE | 2018-05-07 10:12 | BH.SGPN.GN ---
Behaviors/Verbalizations/Mental Status: []Client alert and oriented, casually dressed and groomed. Eye contact good. Motor activity appropriate. Speech within normal limits. Affect congruent, mood anxious, euthymic. Thoughts linear, logical, no signs of hallucinations or delusions. Client Response/Progress/Benefit: []Pt was an active participant in discussion and activity as evidenced by pt listening throughout and taking notes. Group worked together to come up with common negative forces in their lives which can hold them back from growth. Negative forces included: mental illness, negative thoughts, toxic people, and too many responsibilities. Group then worked together to identify common positive forces which help us grow. These included: Healthy coping skills, positive support, self-care, positive self-talk and asking for help/IOP tx. Pt reported agreeing with other?s definitions of personal growth. Shared that setting boundaries is helping her grow but is difficult to do. Pt was attentive during psychoeducation on the importance of utilizing many aspects of positive forces to help one grow. Benefited from group with increased insight and awareness on the impact of negative and positive forces on mental wellness. Progress noted in increased insight, however continues to struggle with consistent application of materials outside tx environment. Recommended continued tx to reduce mental health sx severity, increase positive change behaviors, and prevent decompensation. Narrative Note: []
--- NOTE | 2018-05-08 08:25 | BH.COMM ---
Communication Note - Communication with Client Communication Note: Pt called in and canceled for IOP today
--- NOTE | 2018-05-09 16:19 | BH.COMM ---
Communication Note - Communication with Client Communication Note: Therapist called client as she no called/no showed for IOP today. Client shared she is sick which was why she did not make it into group today. Client reports plan to attend IOP tomorrow for group and individual sessions should client feel better. Client encouraged to call if she cannot attend tomorrow.
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
--- NOTE | 2018-05-10 14:15 | BH.COMM ---
Communication Note - Communication with Client Communication Note: Therapist attempted to call client's outpatient therapist, Ratna Gayle, at [facility] for continuity of care purposes. Therapist was unable to reach Ratna and left a message.
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
--- NOTE | 2018-05-10 14:19 | BH.MTP ---
[facility] - Patient Information Program Physician:: Kayla Garcia Primary Therapist:: Shahana Garg - Psychiatric Diagnoses Psychiatric Diagnoses:: Bipolar 2 disorder; PTSD; Alcohol use disorder-partial remission; Nicotine use disorder Diagnosis Code(s):: F 31.81 - Estimated LOS Estimated LOS (in weeks):: 6 Problem/Goal #1 - Problem/Goal #1 Stated Goal:: Client will increase mood stability and decrease depressive symptoms and isolation due to Bipolar Disorder. Description of Barriers: Client identifies her current relationship with her boyfriend as toxic but shares feeling unable to leave him which may negatively impact client's mental health and functioning. Client is a recovering alcoholic who has been sober for 21 years, but she had a recent relapse in March. Client endorses numerous negative thoughts of self, low self-esteem, and difficulty setting boundaries. Client reports guilt about multiple issues which leads to rumination. Client shared limited social supports besides her which increases isolation and depressed mood. Client identifies money as a barrier to seeking possible positive supports. Additionally, client has several health issues that impact functioning including diabetes, history of stroke, and pancreatitis. Functional Impact: Client is a 47-year-old female referred by individual therapist, Ruthann Gayle, to the behavioral medicine [facility] for mood symptoms and anxiety. Client reports her symptoms have worsened due to relationship issues. Client reports a long-standing history of mood symptoms consistent with bipolar disorder since her teenage years. Client reports a history of manic episodes lasting up to 4 days in which she has increased irritability and anger, decreased sleep, increased impulsivity and promiscuity. Client reports her last manic episode was a few months ago. Client currently endorses a depressed mood with feelings of sadness, anhedonia, decreased energy, and difficulty concentrating. Client reports negative self-talk, low self-esteem, and isolation. Client also reports ruminative anxiety about dynamics with her live-in boyfriend and has panic attacks 2-3 times per month. Client is a recovering alcoholic and has been sober for 21 years, but recently had a relapse due to worsening depressive symptoms. Client has history of past trauma with intrusive traumatic memories, hypervigilance and avoidance. Client stated her symptoms are impacting her ability to function at her baseline and her overall quality of life. Goal Relevant Strengths/Supports: Client is kind, empathetic, and quick to connect with peers. Client appears motivated to work on improving her mental health and functioning while maintaining sobriety. Client has overcome numerous hardships in her life and demonstrates resilience. Client reports 21 years of sobriety and is active in AA. Client is aware that her current relationship with her boyfriend is toxic which demonstrates good insight. Client has an outpatient therapist at [facility] and identifies her as a positive support. - Objectives Objective #1 Stated Objective: Client will identify and replace 2-3 negative thinking patterns that mediate feelings of self-blame, low self-esteem, and negative core beliefs to reduce depressive symptoms as shown by a reduced depression score on the DSM-5 cross-cutting measure. Interventions: Therapist will assist client in developing an awareness of the cognitive messages that reinforce depressive, self-blaming thinking. Therapist will help client gain awareness of how she formed negative core beliefs and the impact trauma can have on self-talk. Therapist will also assist client in challenging, reframing, and replacing negative thinking patterns. Therapist will provide psychoeducation on depression and help client increase awareness of warning signs and triggers. Therapist will promote client self-empowerment and self-esteem by helping client identify strengths, personal resilience factors, and positives of boundary setting. Discharge Criteria: Client will have achieved this goal when can identify at least 2 negative thinking patterns, replace negative thinking with more positive, affirmative messages and show a reduction in DSM-5 cross-cutting symptom measure score. Target Date: 06/13/18 Review Date: 06/01/18 Status: open Objective #2 Stated Objective: Client will increase social activity to at least one additional activity per week to reduce isolation and increase positive supports. Interventions: Therapist will help client explore social connection opportunities, and assist client identifying the benefits of increased social engagement. Therapist will assist client in setting weekly goals to get client out of the house and engaging in activities she enjoys. Therapist will provide education on maintenance cycles for depression and help client learn how to break unhealthy maintenance cycles. Therapist will discuss healthy versus unhealthy relationships and supports and how supports impact mental health progress. Therapist will provide area resources that promote emotional well-being and offer positive support. Discharge Criteria: Client will have achieved this objective when can identify attending at least one social activity of interest weekly and report reduced isolation. Target Date: 06/13/18 Review Date: 06/01/18 Status: open Problem/Goal #2 - Problem/Goal #2 Stated Goal:: Client will decrease frequency, duration, and intensity of anxiety, rumination, and panic so daily functioning is not impaired. Description of Barriers: Client identifies her current relationship with her boyfriend as toxic but shares feeling unable to leave him which may negatively impact client's mental health and functioning. Client is a recovering alcoholic who has been sober for 21 years, but she had a recent relapse in March. Client endorses numerous negative thoughts of self, low self-esteem, and difficulty setting boundaries. Client reports guilt about multiple issues which leads to rumination. Client shared limited social supports, besides her , which increases isolation and depressed mood. Client identifies money as a barrier to seeking possible positive supports. Additionally, client has several health issues that impact functioning including diabetes, history of stroke, and pancreatitis. Functional Impact: Client is a 47-year-old female referred by individual therapist, Ruthann Gayle, to the behavioral medicine [facility] for mood symptoms and anxiety. Client reports her symptoms have worsened due to relationship issues. Client reports a long-standing history of mood symptoms consistent with bipolar disorder since her teenage years. Client reports a history of manic episodes lasting up to 4 days in which she has increased irritability and anger, decreased sleep, increased impulsivity and promiscuity. Client reports her last manic episode was a few months ago. Client currently endorses a depressed mood with feelings of sadness, anhedonia, decreased energy, and difficulty concentrating. Client reports negative self-talk, low self-esteem, and isolation. Client also reports ruminative anxiety about dynamics with her live-in boyfriend and has panic attacks 2-3 times per month. Client is a recovering alcoholic and has been sober for 21 years, but recently had a relapse due to worsening depressive symptoms. Client has history of past trauma with intrusive traumatic memories, hypervigilance and avoidance. Client stated her symptoms are impacting her ability to function at her baseline and her overall quality of life. Goal Relevant Strengths/Supports: Client is kind, empathetic, and quick to connect with peers. Client appears motivated to work on improving her mental health and functioning while maintaining sobriety. Client has overcome numerous hardships in her life and demonstrates resilience. Client reports 21 years of sobriety and is active in AA. Client is aware that her current relationship with her boyfriend is toxic which demonstrates good insight. Client has an outpatient therapist at [facility] and identifies her as a positive support. - Objectives Objective #1 Stated Objective: Client will identify 2-3 cognitive distortions or mistaken beliefs that lead to rumination and learn 2-3 ways to manage these thoughts to reduce anxiety as evidenced by a reduction of DSM-5 cross cutting symptom measure scores. Interventions: Therapist will provide education on the most common cognitive distortions and teach client the connection between thoughts, emotions, and feelings. Therapist will assist client in identifying, challenging, and replacing dysfunctional thoughts with positive, more realistic thoughts. Therapist will use CBT and DBT techniques to help client gain awareness of thinking errors and learn how to more effectively handle negative thoughts. Therapist will help client problem-solve current stressors and identify solutions. Discharge Criteria: Client will have accomplished this goal when can identify at least 2 cognitive distortions and at least 2 coping skills to manage negative thoughts. Client will also be able to report reduction of anxiety symptoms on the DSM-5 symptom measure. Target Date: 06/13/18 Review Date: 06/01/18 Status: open Objective #2 Stated Objective: Client will identify 2-3 anxiety and trauma triggers and 2 calming coping skills to use when feeling anxious. Interventions: Therapist will help client increase awareness of anxiety and trauma triggers and educate client on the ways anxiety impacts overall health. Therapist will teach client various calming strategies to promote emotional regulation and reduction of anxiety. Therapist will assist client in identifying stressors and teach client techniques to reduce, remove, or accept stressors to reduce anxiety. Therapist will discuss the importance of self-care, healthy relationships, and boundaries. Discharge Criteria: Client will have accomplished this goal when can report at least 2 triggers for anxiety and PTSD and state using 2 calming strategies to manage symptoms. Target Date: 06/13/18 Review Date: 06/01/18 Status: open
--- NOTE | 2018-05-11 15:00 | BH.COMM ---
Communication Note - Communication with Client Communication Note: Client no called/no showed for IOP today. Client returned this therapist's call and stated she went to urgent care last night and has bronchitis. Client shared she also has conflicting emotions about her current relationship which client describes as toxic. Client and therapist discussed options for client this weekend that will promote self-care and better her mental health. Client reports plan to attend group Monday05/14/18.
== END 2018-05-13 23:59 ==
LOC: BHIOP 09:00
PROVIDERS: Family Provider Family Medicine; PCP Family Medicine; Visit Provider Psychiatry & Neurology Psychiatry
DX: F31.9 Bipolar disorder, unspecified (principal); F43.10 Post-traumatic stress disorder, unspecified; Z72.89 Other problems related to lifestyle; E11.9 Type 2 diabetes mellitus without complications; J45.909 Unspecified asthma, uncomplicated; I69.954 Hemiplegia and hemiparesis following unspecified cerebrovascular disease affecting left non-dominant side; F17.210 Nicotine dependence, cigarettes, uncomplicated
CPT/HCPCS: 99204; H0035; H2012; H2020; 90834; 90837

== ENCOUNTER 2018-05-14 09:00 | Outpatient (RCR) | payer MEDICAID, SELFPAY ==
--- NOTE | 2018-05-14 10:23 | BH.SGPN.GN ---
Behaviors/Verbalizations/Mental Status: [Client maintained consistent eye contact throughout. She was casually and comfortably dressed, appropriate grooming, motor activity WNL, speech normal rate and tone some slurring associated with medical hx of stroke, mood euthymic, positive, affect congruent with mood, thoughts linear and logical, no evidence of delusions or hallucinations. ] Client Response/Progress/Benefit: [Client responded well to session and was able to actively engage in the discussion throughout. Client indicated connecting with the topic of ?Fear of Failure? as she indicated that for a long-time fear kept her from removing herself from toxic relationships. Client went on to describe that historically she has viewed failure as something negative or to be ashamed of. Client benefitted from working with the group to identify potential positive alternative ways to view failure, such as seeing it as a small setback and a step towards a bigger goal. Client reflected that currently she has a fear of failing to keep from returning to toxic environments. Client displaying progress in her ability to identify current barriers preventing healthy management of mental health symptoms and is taking active steps to begin removing toxic forces in her life.] Narrative Note: []
--- NOTE | 2018-05-14 11:25 | BH.SGPN.GN ---
Behaviors/Verbalizations/Mental Status: [Client maintained consistent eye contact throughout. She was casually and comfortably dressed, appropriate grooming, motor activity WNL, speech normal rate and tone some slurring associated with medical hx of stroke, mood euthymic and anxious, affect congruent with mood, thoughts linear and logical some evidence of preoccupation as at times client appearing distracted by her own thoughts and not realizing others may be talking to her, no evidence of delusions or hallucinations. ] Client Response/Progress/Benefit: [Client again did well to remain an active participant; however, at times throughout the activity appeared to struggle with becoming distracted by her own thoughts. This was evidenced by Client not recognizing when others were speaking to her at various points. Despite some preoccupation, Client continued to do well to make connections between components of the activity, such as having to take a step back before moving forward, and her own life. Client benefitted from processing ways in which the group worked through and adapted to obstacles/restrictions in the activity and how to use those same skills when faced with fear of failure in daily life. Client noted that for her she struggles most with using unhealthy coping skills, negative self-talk, ad focusing on past failures. Client identified that keeping a list of healthier coping mechanisms and making a pro/con list for each coping skill she is tempted to use may be helpful in preventing falling back into unhealthy means to coping.] Narrative Note: []
--- NOTE | 2018-05-15 09:00 | BH.SGPN.GN ---
Behaviors/Verbalizations/Mental Status: [] Pt eye contact fair, casually dressed, motor activity appropriate, speech normal rate and tone, mood anxious, constricted affect, thoughts linear and logical, no evidence of delusions or hallucinations reviewed. client?s symptom tracker, no signs of suicidal ideation, plan, or intent as of today. Client Response/Progress/Benefit: [] Client shared with the group members that over the weekend she chose to leave her boyfriend because the situation was unhealthy. Client shared yesterday she was feeling very free and happy however today having a harder time. Client reported she knows she does not want to return to the relationship but does miss him. Client shared she does still feel start a new chapter in her life and is going to focus on doing the activities and things that she has not done because of the unhealthy relationship. Client reported she has blocked his number to be proactive because she is concerned if she talks to him it will change her mind. Client seemed to benefit from support from peers and ideas to keep her occupied throughout the day. Client to continue IOP level care to maintain gains and prevent decompensation. Narrative Note: []
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
--- NOTE | 2018-05-15 11:10 | BH.SGPN.GN ---
Behaviors/Verbalizations/Mental Status: []Client alert and oriented, casual dress, hygiene fair. Eye contact good. Motor activity appropriate. Speech within normal limits for client-slurred speech due to stroke. Affect constricted, mood dysthymic. Thoughts linear, logical, no signs of hallucinations or delusions. Client Response/Progress/Benefit: []client responded well to session, receptive to supportive statements from peers. Client identified ?if I?m not a people pleaser I let others down? as a current negative thought keeping client trapped. Client reported when she thinks this client self-sabotages, isolates, and has a pessimistic outlook. Client shared her negative thought is unrealistic, as it is impossible to please everyone, and reframed it to ?I can?t please everyone and I can do something that makes me happy.? Client stated this thought improves her mood, helps client ?get back to knowing me? and have a more positive outlook. Client helped the group identify strategies to challenge negative thoughts. Client seemed to benefit from challenging a current negative thought and having the group validate the importance of self-care. Client to continue IOP to prevent decompensation and increase emotional regulation.
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
--- NOTE | 2018-05-16 16:22 | BH.MDN ---
Multi-Disciplinary Note - Note 60-min Individual Time Started:: 15:30 Date: 05/16/18 Purpose of session/treatment goals addressed:: The purpose of this session was to process client's thoughts and emotions from a recent stressor and identify a plan to promote client's well-being. Another goal was to identify and discuss people in client's life that give to or take from client. Other topics included: boundaries and self-care. Eye Contact:: Good Motor Activity:: Appropriate Appearance:: Casual Speech:: Appropriate Mood:: Euthymic Affect:: Congruent - smiling Thoughts:: Linear, Logical, No evidence of hallucinations/delusions noted Staff Interventions:: Therapist used active listening and open-ended questions to explore client's current emotions, thoughts, and barriers pertaining to a recent stressor. Therapist asked client to write out people in client's life that give to client and people who take from client. Therapist helped client process the list and gain awareness to how these relationships positively and negatively impact client's mental health and well-being. Therapist and client discussed boundaries and the importance boundaries play in self-love and self-care. Therapist encouraged client to verbalize her boundaries with those who are currently taking from client. Therapist assisted client in setting a goal for the week to promote self-care. Client Response:: Client responded well to session, open to meeting with therapist and receptive to discussing boundaries. Client entered the session alert and smiling as she shared accomplishing her goal of going to the library. Client brought a library event catalogue and identified several activities she would like to attend this month. Client reported she also did laundry and that she was proud of herself. Client requested a session due to a recent stressor involving her ex-boyfriend. Client left her ex-boyfriend last week due to his chronic mental health issues and alcohol use. Client planned to cut ties with her ex-boyfriend and no longer go out of my way to help? as in the past he has taken advantage of client and not followed through with getting help. Client received a call from her ex-boyfriend's step-mother asking for client's help last night. Client stated, they asked me to convince him to go to [facility] because I'm the only person he listens to. Client went with them to the hospital which resulted in client getting home late and missing IOP. With therapist elicitation, client recognized she put her ex-boyfriend's needs before hers which resulted in client feeling exhausted and having low self-worth. Client shared her list of people who give to or take from client's life. Client reported the people who take from client take time, self-worth, and self-respect. Client and therapist processed costs and benefits of not setting boundaries with her ex-boyfriend and his family. Client stated she wants to start working on increasing her self-care and focusing on her mental health. Client receptive to verbalizing a boundary with one person from the takes from me list. Risks/Concerns:: Client denies suicidal ideation, plan, and intent as of 05/16/18. Progress Toward Goals/Plan:: Client demonstrating progress towards treatment goals as she reports increased motivation to set boundaries with people that take from her life and increase self-care. Client also showing progress as evidenced by client's report of accomplishing her goal of going to the library to reduce isolation. Client continues to endorse anxiety, negative thinking, and symptoms of depression. Client also continues to struggle with maintaining boundaries she has set with her ex-boyfriend and with setting boundaries with other toxic people. Client to communicate her boundaries with her ex's step-mother pedro. Client to continue IOP to increase mood stability and prevent decompensation. Time Stopped:: 16:25
--- NOTE | 2018-05-17 16:23 | BH.MDN_ITS ---
Multi-Disciplinary Note - Note 60-min Individual Time Started:: 15:30 Date: 05/16/18 Purpose of session/treatment goals addressed:: The purpose of this session was to process client's thoughts and emotions from a recent stressor and identify a plan to promote client's well-being. Another goal was to identify and discuss people in client's life that give to or take from client. Other topics included: boundaries and self-care. Eye Contact:: Good Motor Activity:: Appropriate Appearance:: Casual Speech:: Appropriate Mood:: Euthymic Affect:: Congruent - smiling Thoughts:: Linear, Logical, No evidence of hallucinations/delusions noted Staff Interventions:: Therapist used active listening and open-ended questions to explore client's current emotions, thoughts, and barriers pertaining to a recent stressor. Therapist asked client to write out people in client's life that give to client and people who take from client. Therapist helped client process the list and gain awareness to how these relationships positively and negatively impact client's mental health and well-being. Therapist and client discussed boundaries and the importance boundaries play in self-love and self- care. Therapist encouraged client to verbalize her boundaries with those who are currently taking from client. Therapist assisted client in setting a goal for the week to promote self-care. Client Response:: Client responded well to session, open to meeting with therapist and receptive to discussing boundaries. Client entered the session alert and smiling as she shared accomplishing her goal of going to the library. Client brought a library event catalogue and identified several activities she would like to attend this month. Client reported she also did laundry and that she was proud of herself. Client requested a session due to a recent stressor involving her ex-boyfriend. Client left her ex-boyfriend last week due to his chronic mental health issues and alcohol use. Client planned to cut ties with her ex-boyfriend and no longer go out of my way to help? as in the past he has taken advantage of client and not followed through with getting help. Client received a call from her ex-boyfriend's step-mother asking for client's help la st night. Client stated, they asked me to convince him to go to [facility] because I'm the only person he listens to. Client went with them to the hospital which resulted in client getting home late and missing IOP. With therapist elicitation, client recognized she put her ex-boyfriend's needs before hers which resulted in client feeling exhausted and having low self-worth. Client shared her list of people who give to or take from client's life. Client reported the people who take from client take time, self-worth, and self- respect. Client and therapist processed costs and benefits of not setting boundaries with her ex-boyfriend and his family. Client stated she wants to start working on increasing her self-care and focusing on her mental health. Client receptive to verbalizing a boundary with one person from the takes from me list. Risks/Concerns:: Client denies suicidal ideation, plan, and intent as of 05/16/18. Progress Toward Goals/Plan:: Client demonstrating progress towards treatment goals as she reports increased motivation to set boundaries with people that take from her life and increase self-care. Client also showing progress as evidenced by client's report of accomplishing her goal of going to the library to reduce isolation. Client continues to endorse anxiety, negative thinking, and symptoms of depression. Client also continues to struggle with maintaining boundaries she has set with her ex-boyfriend and with setting boundaries with other toxic people. Client to communicate her boundaries with her ex's step- mother pedro. Client to continue IOP to increase mood stability and prevent decompensation. Time Stopped:: 16:25
--- NOTE | 2018-05-18 10:20 | BH.SGPN.GN ---
Behaviors/Verbalizations/Mental Status: [] Pt eye contact fair, casually dressed, motor activity slowed, speech monotone, mood depressed, flat affect, thoughts linear and logical, no evidence of delusions or hallucinations. Client Response/Progress/Benefit: [] Client passive participant as evidenced by limited contributions during discussion and appeared distracted at times. Client did seem to connect with some of the distortions discussed throughout group as evidenced by her nodding her head to peers comments. Client also showed limited engagement during team challenge activity as evidenced by patient not concentrating her thoughts or ideas to group. Client progress could be hindered by client's limited engagement and contribution to session. Seemed to benefit from learning about cognitive distortions and how one's thoughts can negatively or positively impact a situation. Client to continue IOP level care to stabilize moods and prevent decompensation. Narrative Note: []
--- NOTE | 2018-05-22 10:20 | BH.SGPN.GN ---
Behaviors/Verbalizations/Mental Status: [] Pt eye contact fair, casually dressed, motor activity appropriate, speech normal rate and tone, mood dysthymic, constricted affect, thoughts linear and logical, no evidence of delusions or hallucinations. Client Response/Progress/Benefit: [] Client passive participant, contributing only when therapist elicited comments, did appeared to listen to others. Pt identified her current stressors to be: negative thoughts, trying to please everyone, letting others have control over her, disappointment in self, and other people. Pt shared she does feel she is managing her stressors currently so she is not at the point of being overwhelmed. Identified when feels overwhelmed with stress she will shut down. Pt seemed to benefit from increased awareness of her current stressors and impact how she responds to stress can have on functioning. Narrative Note: []
--- NOTE | 2018-05-22 13:52 | BH.MDN_ITS ---
Multi-Disciplinary Note - Note 60-min Individual Time Started:: 11:30 Date: 05/22/18 Purpose of session/treatment goals addressed:: The purpose of this session was to increase awareness of the benefits and costs of setting a boundary in client's life and to identify a plan that will promote client's emotional well- being. Another goal was to discuss self-compassion and increase self-esteem. Eye Contact:: Good Motor Activity:: Slowed Appearance:: Disheveled - hair unkempt. Speech:: Rambling Mood:: Dysthymic Affect:: Flat Thoughts:: Linear, Logical, No evidence of hallucinations/delusions noted Staff Interventions:: Therapist used active listening and open-ended questions to explore client's current mood state and thoughts. Therapist discussed self- compassion with client and encouraged client to challenge negative thoughts that keep client ruminating on mistakes. Therapist completed a decisional balance worksheet with client to help client gain awareness of the costs and benefits of changing versus not changing her boundaries. Therapist processed each section with client and gave client a handout on 9 ways to overcome toxic relationships. Therapist helped client set a small goal for today that will promote self-care and asked client to write out 10 positive affirmations for homework. Client Response:: Client responded well to session, open to meeting with therapist. Client shared she is very disappointed in herself as client spent the night at her ex-boyfriend?s house last night. Client reported she has been trying to stick to her boundaries and wants to be done with the relationship, however, client stated her ex-boyfriend and his family continue to call and text client. Client reported she recognizes that her ex-boyfriend and his family use manipulating language which makes client feel guilty and keeps her stuck in a negative maintenance cycle. Client was receptive to completing a decisional balance worksheet that identified the pros and cons of change versus no change, which in client's case means setting strict boundaries and cutting ties versus continuing to let others control her. After processing the costs and benefits of change versus no change client reported she no longer wants to live her life feeling like everyone else is more important. Client shared the costs of not changing outweigh the benefits and that she realizes changing will be difficult, but it may positively impact her mental health and relationships. Client receptive to reviewing the decisional balance sheet today before she responds to calls or texts from her ex-boyfriend or his family. Client reports plan to go to the library today and was open to identifying 10 positive affirmations of self. Risks/Concerns:: Client denies suicidal ideation, plan, and intent as of 05/22/18. Progress Toward Goals/Plan:: Client's progress is variable as client reports high motivation to set boundaries and work on self-care, but she is inconsistent with maintaining these boundaries which leads to low self-esteem and a depressed mood. Client has shown progress with getting out of the house more, engaging in social activities at the library, and cleaning at home. Client continues to endorse rumination, negative thinking, and a depressed mood. Client to continue IOP to prevent decompensation, increase mood stability, and improve self-worth. Client to go to the library today and review her decisional-balance worksheet before making decisions today. Time Stopped:: 12:30
--- NOTE | 2018-05-22 15:44 | BH.COMM ---
Communication Note - Communication with Client Communication Note: Therapist attempted to call client's outpatient therapist, Ratna Gayle, at [facility] to discuss client care. Therapist left a message with Ratna and will follow up before the end of the week.
--- NOTE | 2018-05-23 14:29 | BH.COMM ---
Communication Note - Communication with Client Communication Note: Client no called/no showed for IOP appointment today. Client left therapist a message reporting her lack of attendance was due to client being in the ER with her son late last night. Client reported plan to attend IOP Monday05/25/18.
--- NOTE | 2018-05-25 10:46 | BH.NA ---
Physical Data - Height/Weight Height: 1.63 m Weight:: 73.482 kg Weight in Pounds: 162.0 lbs Current Medication Compliance - Medication Compliance Do you take your medication as prescribed?: Yes Do you need assistance with taking medication?: No Have you had side effects from medication?: No Nutritional History - Appetite Nutritional Instructions:: If client shows signs of a swallowing problem, weight change of 10 pounds or more in the last month, or is on a diabetic diet, the physician will review and request a dietitian consult, as appropriate. All unintentional weight loss will be referred to the physician for decision on need for dietitian consult. Describe your appetite:: Fair Have you noticed a change in your eating habits lately?: No Functional Assessment - Sleep Pattern Describe any problems with sleeping: Client notes difficulty falling and staying asleep, linked to both physical and mental (rumination) problems. - Activities Motor Activity:: Functional Sensory/Communication Assess - Hearing Problems Do you have any hearing problems?: Adequate - Communication Problems Do you have difficulty understanding what people are saying?: No Do you have trouble putting your thoughts into words or expressing what you want to say?: No Do people ever have trouble understanding what you say?: No What is your primary language?: Hebrew Learning Assessment - Learning Barriers Learning Barriers:: Ready to learn Medical Problems/History - Cardiac Conditions Cardiovascular: Hypertension, Hyperlipidemia - Neurological Conditions Neurological: Other (See comments) - 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 If so, list type and date:: Yes - hyster Substance Abuse - Substance Abuse Please describe substance abuse in the last 30 days:: Tobacco abuse: 1-1.5ppd, cigarettes Mental Status Summary - Mental Status Significant Findings/Observations on Appearance and Mood:: Nara is an A&Ox4 47-year-old female who is cooperative with interview. She is casually dressed with appropriate grooming and hygiene. Normal activity and good eye contact. Speech is clear, slow, and of normal volume. Mild anhedonia. Mood congruent affect. Logical associations and normal process. Fair knowledge and limited insight. No symptoms of delusions. Denies hallucinations, SI, and HI. Steady gait w/ chronic L-sided weakness d/t CVA in 2012. Impaired short-term memory, remote intact. Good attention and concentration. Suicide Assessment - Suicidal Ideation Are you currently or have you been suicidal in the past?: No Suicidal Intentional Rating Scale (SIRS): No suicidal thoughts (past or present) Physician Notification: If Active suicidal thoughts/Will not contract for safety is checked, contact physician and document in the Physician Notification section below. Fall Risk Assessment - Age Age: Less than 60 - Mental Status Mental Status: Willing & able to ask for assistance when needed - Physical Status Physical Status: No problems - Impairments Impairments: None - Elimination Elimination: Continent AND independent - Gait or Balance Gait or Balance: Walks independently - Hx of Falls History of falls in the past 6 months: No known history - Medications/Substances Psychotropics:: Antipsychotics, Mood stabilizers, Anxiolytics (e.g. benzodiazepines) Medications/substances used within the past 24 hours or ordered to administer: 3 or more of the medications/substances listed above - Total Score Total Points:: 2 Physician Notification - Physician Notification Physician Notified: Kayla Garcia Method of Notification: Face to Face Comments: treatment planning discussion RN Summary of Impressions - Impressions Recommendations: Include psychiatric and medical issues, treatment planning recommendations, and discharge planning needs. 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 She is still having anxiety regarding her current relationship situation, which involves a live-in boyfriend and several other male partners. She denies any manic or hypomanic symptoms recently, noting her mood is generally depressed - still decompensated below baseline functioning. Nara notes ongoing sleep difficulty and labile moods with irritability.
--- NOTE | 2018-05-28 09:05 | BH.SGPN.GN ---
Behaviors/Verbalizations/Mental Status: []Client alert and oriented, casual dress, well groomed- clean hair. Eye contact good. Motor activity appropriate. Speech baseline for client. Affect congruent, mood anxious. Thoughts circular, no signs of hallucinations or delusions. Reviewed client?s symptom tracker, no risk for suicidal ideation, plan, or intent as of 05/28/18. Client Response/Progress/Benefit: []Client responded well to session, active participant. Client reports feeling ?guilty? today due to ?people playing the blame game with me? in regards to a toxic relationship. Client received supportive comments and gentle challenging from peers and after reported ?it?s not my guilt to carry, I can?t control him.? Client reported when toxic people try to manipulate her, she has negative, ruminating thoughts. Client receptive to strategies for challenging thoughts and building confidence in boundary setting. Client shared her positive is making it into group today. Client appeared to benefit from support provided by peers. Progress noted as client recognizes the benefits of boundaries and maintained a boundary over the weekend, but she continues to communicate with a few people who use manipulation on client which could keep client stuck. Client to continue IOP to prevent decompensation and increase coping skill consistency.
--- NOTE | 2018-05-28 10:15 | BH.SGPN.GN ---
Behaviors/Verbalizations/Mental Status: []lCient alert and oriented, casual dress, well groomed- clean hair. Eye contact good. Motor activity appropriate. Speech baseline for client. Affect congruent, mood anxious. Thoughts logical, no signs of hallucinations or delusions. Client Response/Progress/Benefit: []Pt passive participant AEB pt providing little contributions to discussion, however did appear to be listening to others. Pt appeared to agree with others about although knowing having support is important at times it can be challenging to utilize supports when needed as shown by pt nodding head. Pt identified when it comes to supports it's important to communicate openly and being specific. Pt seemed to benefit from increased awareness of importance of using support system and group discussion about positive characteristics of healthy supports. Narrative Note: []
--- NOTE | 2018-05-28 11:15 | BH.SGPN.GN ---
Behaviors/Verbalizations/Mental Status: []Client alert and oriented, neatly dressed and groomed. Eye contact good. Motor activity appropriate. Speech within normal limits. Affect flat, mood anxious, depressed. Thoughts linear, logical, no signs of hallucinations or delusions. Client Response/Progress/Benefit: []Pt listened to others, only shared thoughts and ideas if elicited by therapist. Pt able to identify benefits to the social support types discussed. Pt reported one of her barriers to building supports is not being very patient, which can cause conflict with her supports. Pt shared she'd like to focus on being patient with her supports so she doesn't cause conflict with the people trying to help her. Pt seemed to benefit from increasing awareness of the different type of social support pt could utilize. Pt to continue IOP level of care to maintain gains, generalize skills, and prevent decompensation. Narrative Note: []
--- NOTE | 2018-05-29 09:05 | BH.SGPN.GN ---
Behaviors/Verbalizations/Mental Status: [] Eye contact is good. Motor activity is appropriate. Appearance is neat. Speech is Appropriate. Mood is depressed. Affect is flat. Thoughts are linear and logical. No evidence of psychosis. Reviewed daily check in sheet and no reports of suicidal ideations or intent Client Response/Progress/Benefit: [] Pt was an active participant in group discussion. Emotion for today is guilty and anxious. Shared that she continues to struggle with setting boundaries with ex-bf. Reports that she unblocked him and actually talked with him on the phone. She listed several reasons why this relationship is toxic and how he manipulates her, however emotionally is having trouble maintaining boundaries. Reports panic attack yesterday as she was dealing with guilt. Group provided support and feedback. Group facilitated a discussion on people-pleasing behaviors and the negative impact they have. Progress noted as she was setting boundaries however recent relapse and emotional distress. Relationship continues to be primary stressor which is impacting functioning. Will continue in IOP to prevent decompensation, increase functioning, and stabilize mood. Narrative Note: []
--- NOTE | 2018-05-29 10:10 | BH.SGPN.GN ---
Behaviors/Verbalizations/Mental Status: []Eye contact is fair. Motor activity is restless. Appearance is casual. Speech is Appropriate. Mood is depressed. affect is flat. Thoughts are linear and logical. No evidence of psychosis. Client Response/Progress/Benefit: []Client passive participant as evidenced by limited contributions to discussion however did appear to listen to others. Client seemed to relate to others comments about the challenges of following through with goals to be fear, low energy, and no motivation as shown by client nodding her head. Client appeared to benefit from practicing and setting small goals in the moment as well as learning about setting smart goals. Narrative Note: []
--- NOTE | 2018-05-29 14:43 | BH.MDN_ITS ---
Multi-Disciplinary Note - Note 60-min Individual Time Started:: 11:27 Date: 05/29/18 Purpose of session/treatment goals addressed:: The purpose of this session was to address client's current stressors, symptoms, and boundary setting. Other topics included self-esteem, goal setting, and thought challenging. Eye Contact:: Good Motor Activity:: Slowed Appearance:: Casual - clean hair Speech:: Rambling Mood:: Dysthymic Affect:: Constricted Thoughts:: Circular, No evidence of hallucinations/delusions noted Staff Interventions:: Therapist used open-ended questions to explore client's current stressors, symptoms, and progress towards boundary setting. Therapist helped client process current barriers, interpersonal relationship issues, and guilt. Therapist gently challenged client on distorted thoughts and self- sabotaging behaviors. Therapist and client discussed how client defines her self-worth and strategies to increase self-worth. Therapist helped client practice thought challenging techniques and reviewed emotional release coping skills with client. Therapist assisted client in setting goals for the week which included setting physical boundaries and journaling positive affirmations. Client Response:: Client responded well to session, open to meeting with therapist. Client reports ongoing issues with maintaining boundaries with her ex-boyfriend. Client connected that part of the reason she is struggling is b ecause client feels guilty. Client and therapist challenged client's guilty thought together which client shared helped her feel better in the moment. Client stated she is not ready to fully cut ties with her ex-boyfriend, but client was willing to set physical boundaries with him. Client and therapist discussed self-esteem and self-worth and client made the connection that her self-worth has always been attached her relationships. Client shared you don't want to know who I am alone as client reports fearing abandonment and always having been in a relationship. Client able to identify a few traits that demonstrate self-worth outside of a relationship such as her honesty and compassion for others. Client agreed to journaling positive affirmations, setting physical boundaries, and taking at least 10 minutes of self-care a day. Risks/Concerns:: Client denies suicidal ideation, plan, and intent as of 05/29/18. Progress Toward Goals/Plan:: Client's progress is variable as she reports inconsistent implementation of healthy coping skills and boundaries. Client also continues to struggle with guilt associated with setting boundaries, but she was receptive to applying thought challenging skills to reframe and combat guilt. During session, client reported willingness to take smaller steps with setting boundaries and plans to start by setting physical boundaries rather than cutting off a relationship all together. Client receptive to homework of journaling positive qualities and reading her notes when feeling guilty. Client to continue IOP to prevent decompensation, increase self-esteem, and increase mood stability. Time Stopped:: 12:20
--- NOTE | 2018-06-05 07:56 | BH.MTP_ITS ---
Treatment Plan Review Date of Admission:: 05/02/18 Date of Treatment Plan Review:: 06/05/18 Admitting Diagnoses:: Bipolar 2 disorder F31.81; PTSD; Alcohol use disorder- partial remission; Nicotine use disorder Current Diagnoses:: Bipolar 2 disorder F31.81; PTSD; Alcohol use disorder- partial remission; Nicotine use disorder Patient's Response to Treatment:: Client has responded somewhat well to treatment as client connects well with peers and is receptive during sessions, but she continues to struggle with consistent implementation of healthy coping skills and reports ongoing depressive symptoms. Attendance may contribute to client's variable progress which impacts client's ability to learn and implement healthy coping skills. Client has missed five scheduled IOP days since admission, several of which were no call/no show. Overall, client responds well in group sessions as she often takes notes and provides supportive statements to peers. Client is quiet during group, but client will participate when prompted. During individual session client is receptive and is mostly consistent with completing homework assignments. Client has struggled with staying on topic during sessions, but she is redirected with prompting from therapist. Client is receptive to gentle challenging from therapist when client uses cognitive distortions, but client struggles to challenge and reframe negative self-talk statements on her own. Per client's report, her biggest barrier to progress is her interpersonal relationship issues. Client often uses sessions to vent about current frustrations with her relationships, but self-reports limited action wit h establishing healthy boundaries. Client reports awareness that not setting boundaries could continue to hinder her mental health progress, but client shared she is willing to live with that for now. Due to this barrier, goals of reducing depression and increasing self-esteem may be difficult to achieve. Status of Current Problems and Symptoms: Client's continues to report depressive symptoms, avoidance, low self-esteem, guilt, and anxiety exacerbated by ongoing interpersonal relationship issues. Client presents with limited awareness that her mood is determined by other's emotions, thoughts, and behaviors rather than by client's choices and coping skills which could have contributed to client's variable progress. Additionally, client reports ongoing rumination, negative thinking, and difficulty setting boundaries. Problem #1 Problem Name:: Pt. will increase mood stability and decrease depressive symptoms Status of Goals:: Client has accomplished part of this goal, recommended to continue improving thought challenging, boundary setting, and increasing self- esteem. Objective 1- Client can identify negative self-talk statements, but she continues to report difficulty with reframing without assistance. Client?s DSM-5 scores for depression have increased since admission as they are currently 5 out of 8, whereas at admission they were 3 out of 8. Client contributes the increase to ongoing interpersonal relationship issues. Objective 2-Client has accomplished this goal as she reports reduced isolation and has been consistently engaging in at least one social activity per week. Client shared she enjoys going to the [employer] and she is open to possibly volunteering. Client and therapist currently working on maintaining this objective. Team Recommendations:: Client to continue working on treatment goal as she has reduced isolation, but continues to struggle with low self-esteem, depressed mood, and challenging negative thoughts. Client's interpersonal relationship issues continue to exacerbate client's depressive symptoms and hinder client's progress. Client recommended to continue working on establishing healthy boundaries and challenging negative self-talk. Problem #2 Problem Name:: Pt. will decrease frequency and intensity of anxiety and rumination Status of Goals:: Goal mostly accomplished, but client can continue to benefit from increasing consistency and using internal coping skills. Objective 1- cl ient can identify at least 2 cognitive distortions and with assistance can challenge and replace those messages. Client continues to struggle with challenging negative self-talk without supports present. Client?s DSM-5 cross- cutting symptom scores have decreased from 10 out 12 at admission to 8 out of 12 at review which demonstrates progress. Objective 2- client can identify at least 2 anxiety triggers and reports using breathing, journaling, and talking to supports on the phone to cope with anxiety. Team Recommendations:: Client to continue working toward treatment goal as client can identify triggers and report some calming strategies, but she continues to struggle with consistent application of healthy coping skills and challenging distorted thoughts without assistance. Therapist and client currently working on writing out negative thoughts in a journal and practicing self-care daily. Client also recommended to follow up with outpatient provider at [facility] for ongoing counseling.
--- NOTE | 2018-06-05 10:05 | BH.SGPN.GN ---
Behaviors/Verbalizations/Mental Status: []Client alert and oriented, disheveled appearance. Eye contact good. Motor activity appropriate. Speech soft. Affect flat, mood dysthymic. Thoughts linear, logical, no signs of hallucinations or delusions. Client Response/Progress/Benefit: []Client responded well to session, quiet, but participating with prompted. ?Client stated guilt and cognitive distortions are barriers to communication. Client listened as the group discussed the different communication styles. Client identified using the passive-aggressive communication style. Client acknowledged she tends to not communicate how she feels, but then gets angry at others. Client stated she would like to become more assertive. Client appeared to benefit from gaining awareness to how communication styles impact mental health. Client to continue IOP to increase consistent application of boundary setting and coping skills.
--- NOTE | 2018-06-05 11:10 | BH.SGPN.GN ---
Behaviors/Verbalizations/Mental Status: []Client alert and oriented, disheveled appearance. Eye contact good. Motor activity appropriate. Speech soft. Affect constricted, mood irritable. Thoughts linear, logical, no signs of hallucinations or delusions. Client Response/Progress/Benefit: []Client responded well to session, passive participant. Client observed group members as they engaged in the communication activity. Client reported ?understanding each other? can be a barrier to communication. Client took notes as the group identified strategies to improve communication including: being specific, managing emotions, and having self-awareness. Client appeared to benefit from learning strategies to improve communication and gaining awareness of personal barriers. Client to continue IOP as she continues to struggle to maintain mood stability and coping with interpersonal relationship issues.
--- NOTE | 2018-06-05 14:08 | BH.MDN ---
Multi-Disciplinary Note - Note 60-min Individual Time Started:: 12:20 Date: 06/05/18 Purpose of session/treatment goals addressed:: The purpose of this session was to address client's current stressors, symptoms, goals from last week. Other topics included: cognitive distortions, self-esteem, and progress. Eye Contact:: Fair Appearance:: Casual - appeared well groomed Speech:: Tangential Mood:: Irritable Affect:: Constricted Thoughts:: Circular - client often circling back to her relationships, No evidence of hallucinations/delusions noted Staff Interventions:: Therapist used open-ended questions to explore client's current stressors, symptoms, and progress towards last week's goals. Therapist helped client process current barriers. Therapist met client where she was at by refocusing treatment goals moving forward to better meet client's needs. Therapist gently challenged client on distorted thoughts and self-sabotaging behaviors. Therapist and client discussed choices and consequences. Therapist reviewed the common cognitive distortions with client and discussed the connection between with thoughts, feelings, and behaviors. Therapist helped client practice thought challenging techniques and reviewed emotional release coping skills with client. Therapist assisted client in setting goals for the week which included increased social engagement and challenging distorted thoughts. Client Response:: Client responded well to session, open to meeting with therapist and receptive to gentle challenging. Client shared I was feeling good until I started feeling judged. Client reported recent issues with her ex-boyfriend's mother have been getting progressively worse. Client stated her ex-boyfriend's mother is telling client to make a choice to either stay with client's ex or to cut ties completely. Client shared she just doesn't understand and client expressed she is not ready to stay away from her ex-boyfriend yet. Client recognizes this goes against her goal from previous sessions, and client discussed the consequences of her choices. Client reported she realizes keeping her ex-boyfriend in her life may not benefit client, but client wants to let go of him in my own time. Client and therapist discussed client's goals and wants moving forward. Client shared she would like to work on being more social, improving self-esteem, and challenging negative thoughts. Client was receptive to going to the library more often, trying [facility], and possibly attending the [facility] diabetes support group. Client and therapist reviewed cognitive distortions and client identified magnification and emotional reasoning as the two she most often uses. Client practiced challenging and reframing current negative thoughts. Client shared another issue she is struggling with is not being able to cry, so client and therapist reviewed other healthy ways to obtain emotional release. Client reports plan to write out her stressors and rip them. Risks/Concerns:: Client denies suicidal ideation, plan, and intent as of 06/05/18. Client future oriented throughout as evidenced by her report of looking forward to going to the library today. Progress Toward Goals/Plan:: Client's progress is variable as she reports some improvement in her mood, but overall, continues to report depressive symptoms, emotional distress, guilt, and anxiety exacerbated by ongoing interpersonal relationship issues. Client shared that setting boundaries with her ex-boyfriend are too difficult for her at this time and client would like to focus on other goals while in IOP. Client reports awareness that her choice to not work on boundaries with her ex-boyfriend may negatively impact her mental health, but client is willing to deal with those for now. Client was receptive to working on increasing socialization, increasing self-esteem, and challenging cognitive distortions for her remaining time at IOP. Client to continue IOP to increase healthy coping skills and supports and prevent decompensation. Time Stopped:: 13:18
--- NOTE | 2018-06-05 14:42 | BH.MDN_ITS ---
Multi-Disciplinary Note - Note 60-min Individual Time Started:: 12:20 Date: 06/05/18 Purpose of session/treatment goals addressed:: The purpose of this session was to address client's current stressors, symptoms, goals from last week. Other topics included: cognitive distortions, self-esteem, and progress. Eye Contact:: Fair Appearance:: Casual - appeared well groomed Speech:: Tangential Mood:: Irritable Affect:: Constricted Thoughts:: Circular - client often circling back to her relationships, No e vidence of hallucinations/delusions noted Staff Interventions:: Therapist used open-ended questions to explore client's current stressors, symptoms, and progress towards last week's goals. Therapist helped client process current barriers. Therapist met client where she was at by refocusing treatment goals moving forward to better meet client's needs. Therapist gently challenged client on distorted thoughts and self-sabotaging behaviors. Therapist and client discussed choices and consequences. Therapist reviewed the common cognitive distortions with client and discussed the connection between with thoughts, feelings, and behaviors. Therapist helped client practice thought challenging techniques and reviewed emotional release coping skills with client. Therapist assisted client in setting goals for the week which included increased social engagement and challenging distorted thoughts. Client Response:: Client responded well to session, open to meeting with therapist and receptive to gentle challenging. Client shared I was feeling good until I started feeling judged. Client reported recent issues with her ex- boyfriend's mother have been getting progressively worse. Client stated her ex- boyfriend's mother is telling client to make a choice to either stay with client's ex or to cut ties completely. Client shared she just doesn't u nderstand and client expressed she is not ready to stay away from her ex- boyfriend yet. Client recognizes this goes against her goal from previous sessions, and client discussed the consequences of her choices. Client reported she realizes keeping her ex-boyfriend in her life may not benefit client, but client wants to let go of him in my own time. Client and therapist discussed client's goals and wants moving forward. Client shared she would like to work on being more social, improving self-esteem, and challenging negative thoughts. Client was receptive to going to the library more often, trying [facility], and possibly attending the [facility] diabetes support group. Client and therapist reviewed cognitive distortions and client identified magnification and emotional reasoning as the two she most often uses. Client practiced challenging and reframing current negative thoughts. Client shared another issue she is struggling with is not being able to cry, so client and therapist reviewed other healthy ways to obtain emotional release. Client reports plan to write out her stressors and rip them. Risks/Concerns:: Client denies suicidal ideation, plan, and intent as of 06/05/18. Client future oriented throughout as evidenced by her report of looking forward [facility]. Progress Toward Goals/Plan:: Client's progress is variable as she reports some improvement in her mood, but overall, continues to report depressive symptoms, emotional distress, guilt, and anxiety exacerbated by ongoing interpersonal relationship issues. Client shared that setting boundaries with her ex-boyfriend are too difficult for her at this time and client would like to focus on other goals while in IOP. Client reports awareness that her choice to not work on boundaries with her ex-boyfriend may negatively impact her mental health, but client is willing to deal with those for now. Client was receptive to working on increasing socialization, increasing self-esteem, and challenging cognitive distortions for her remaining time at IOP. Client to continue IOP to increase healthy coping skills and supports and prevent decompensation. Time Stopped:: 13:18
--- NOTE | 2018-06-06 09:10 | BH.SGPN.GN ---
Behaviors/Verbalizations/Mental Status: [] Eye contact is good. Motor activity is appropriate. Appearance is discheveled. Speech is soft. Mood is depressed. Affect is flat. Thoughts are linear and logical. No evidence of psychosis. Reviewed daily check in sheet and no reports of suicidal ideations or intent. Client Response/Progress/Benefit: [] Pt spoke only when prompted. Appeared attentive. Emotion for today is all over the place however would not elaborate to the group. Reports erratic moods from anger to sadness. Declined to share much. Limited progress noted due to self report of increased depression. Will continue in group to maintain safety, stabilize mood, and prevent further decompensation. Narrative Note: []
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
--- NOTE | 2018-06-08 10:12 | BH.SGPN.GN ---
Behaviors/Verbalizations/Mental Status: []Client alert and oriented, disheveled, hygiene fair. Eye contact good. Motor activity appropriate. Speech within normal limits. Affect flat, mood dysthymic. Thoughts linear, logical, no signs of hallucinations or delusions. Client Response/Progress/Benefit: []Client responded well to session, taking notes throughout. Client reported some stress is positive as it can give one motivation, but chronic stress can lead to increased depression, avoidance, anxiety, and physical problems. Client discussed with the group how stress impacts a person emotionally, physically, behaviorally, and cognitively. Client stated she realizes she is too stressed when she starts to ignore responsibilities. Client identified current stressors in her stress jar to be relationships, low motivation, broken vehicle, and ignoring laundry. Client reported her stress jar is not full, but client feels overwhelmed by her current stressors which leads to procrastination. Client appeared to benefit from identifying current stressors. Progress variable as client continues to report lack of implementation of healthy coping skills and low motivation.
--- NOTE | 2018-06-08 11:16 | BH.SGPN.GN ---
Behaviors/Verbalizations/Mental Status: []Client alert and oriented, disheveled, hygiene fair. Eye contact good. Motor activity appropriate. Speech within normal limits. Affect constricted, mood irritable, depressed. Thoughts linear, logical, no signs of hallucinations or delusions. Client Response/Progress/Benefit: []Client responded well to session, engaged in activity. Client participated in the group activity and the group failed in accomplishing the goal. Client connected this back to dealing with stressors in real life sharing, ?we didn?t have good time management.? Client also recognized that when they did not get the goal right away many group members, including client, wanted to give up. Client reported at times she thinks of the big picture which then prevents client from accomplishing small goals. Client identified doing her laundry as a stressor in client?s control. Client learned about the four A?s of reducing stress. Client set a stress-reducing goal for the week and reports plan to ?turn up the music and do my laundry.? Client appeared to benefit from gaining insight to how she manages stress in the moment and from setting a stress-management goal. Client to continue IOP to increase motivation and break negative maintenance cycles.
--- NOTE | 2018-06-08 12:11 | PCM.PN.BLA ---
Progress Note Patient is seen in follow-up for bipolar 2 disorder, PTSD, alcohol use disorder, nicotine use disorder. History is been obtained per interview with patient, discussion with staff, review of chart. Case discussed with treatment team. Chief complaint-mood symptoms and anxiety Some aspects are going good and some things are bothering me. Interim history Moderate depressive symptoms persist but of decreased intensity. She endorses decreased energy and lack of motivation. She provides example of her laundry being in the washer since Monday. She states that she has made some progress as she has increased self care and recently went to a [employer] house lab[employer]. She has ruminative anxiety regarding relationship issues. She recognizes that her previous relationship with her alcoholic ex-boyfriend was toxic and harmful. Denies suicidal or homicidal ideation. Denies symptoms consistent with psychosis. Sleeping from 11:30 PM to 6 AM. Appetite normal. Denies nausea vomiting or diarrhea. Denies ingestion of alcohol. Consuming 3 caffeinated sodas daily. Mental status exam Alert and oriented . No acute distress. Ambulatory with mild limp and normal station. Appears stated age. Casually dressed and groomed. Appropriate hygiene. Cooperative with interview. Good eye contact. No psychomotor agitation or retardation. Mood depressed. Affect congruent. Speech is clear and with regular rate and rhythm. Language fluent. Thought process organized. Associations logical. Thought content significant for ruminative anxiety and themes of depression. No suicidal or homicidal ideation related or detected. No symptoms consistent with psychosis noted or detected. Immediate recent and remote memory grossly intact. Attention and concentration are fair. Estimated intelligence and fund of knowledge average. Judgment and insight fair. Diagnosis Bipolar 2 disorder PTSD Alcohol use disorder Nicotine use disorder Remote history disordered eating Plan Continue IOP as the structured setting is necessary to maintain gains and prevent decompensation. Risk-benefit alternative of medications discussed with patient. Patient acknowledges understanding. Continue Seroquel 50 mg p.o. nightly. Risk of Seroquel and CVA noted. Patient reports that she is unable to tolerate higher doses due to somnolence. Start Lamictal 25 mg p.o. daily for 2 weeks to be increased to 50 mg p.o. daily for 2 weeks to be increased to 75 mg p.o. daily. Dispense number 90 tablets - 25 mg each with 0 refills. Encouraged to limit the use of benzodiazepines. Encouraged ongoing alcohol abstinence. Encourage smoking cessation. Follow-up with Ruthann Gayle and Dr. Wilkes. Patient acknowledges understanding and is in agreement with plan. Feels able to maintain safety. Agrees to seek help or emergency care if feeling unsafe to self or others. 18 minutes Insight oriented psychotherapy guarding relationship dynamics and boundary setting.
--- NOTE | 2018-06-12 10:07 | BH.SGPN.GN ---
Behaviors/Verbalizations/Mental Status: []Client alert and oriented, casual dress. Eye contact good. Motor activity appropriate. Speech within normal limits. Affect constricted, mood euthymic, anxious. Thoughts linear, logical, no signs of hallucinations or delusions Client Response/Progress/Benefit: []Client responded well to session, engaged throughout. Client identified barriers that impact one?s communication of emotions such as avoidance, negative thinking, and anxiety. Client participated in the activity and struggled to follow the rules of her role. Client connected this to having a hard time letting others have control and wanting instant gratification. Client shared the hardest role for her was being unable to see ?because I have a hard time trusting others.? Client appeared to benefit from gaining awareness to her personal barriers and practicing in the moment coping skills
--- NOTE | 2018-06-12 11:08 | BH.SGPN.GN ---
Behaviors/Verbalizations/Mental Status: []Client alert and oriented, dress casual. Eye contact good. Motor activity appropriate. Speech within normal limits. Affect constricted, mood irritable, depressed. Thoughts linear, logical, no signs of hallucinations or delusions. Client Response/Progress/Benefit: []Client responded well to session, engaged through note-taking. Client helped the group discuss the different zones of alertness including emotions, behaviors, and coping skills. Client shared she finds herself in the ?blue zone? a lot as client struggles with low motivation and managing depression. Client identified strategies to help get client out of the ?blue zone? such as calling a support, getting out of the house, and setting small goals. Client?s goal for today to increase mood stability is to ?make myself do small tasks.? Client appeared to benefit from gaining awareness of the different zones of emotional regulation and how to cope in each. Progress noted as client shared she accomplished her goal from last week, but she continues to struggle with interpersonal relationships and poor boundaries.
--- NOTE | 2018-06-12 15:05 | BH.MDN_ITS ---
Multi-Disciplinary Note - Note 60-min Individual Time Started:: 12:20 Date: 06/12/18 Purpose of session/treatment goals addressed:: The purpose of this session was to address client's current stressors, symptoms, goals from last week. Other topics included: cognitive distortions, self-esteem, and boundaries Eye Contact:: Good Motor Activity:: Appropriate Appearance:: Casual Speech:: Rambling Mood:: Anxious Affect:: Constricted Thoughts:: Circular Staff Interventions:: Therapist used open-ended questions to explore client's current stressors, symptoms, and progress towards last week's goals. Therapist helped client process her feelings towards a recent stressor and used motivational interviewing to increase client awareness of current barriers. Therapist and client discussed client?s goal to ?let go? of a toxic relationship and identified what this would look like for client. Therapist assisted client in identifying things holding client back from letting go and problem-solved strategies with client to overcome these barriers. Therapist gently challenged client on distorted thoughts and self-sabotaging behaviors. Therapist discussed self-esteem and processed with client how allowing others to control her emotions negative impacts client. Therapist assisted client in setting goals that will help client get closer to the progress she wants to make. Client Response:: Client responded well to session, opening with a journal entry she wrote about letting go. Client shared she wrote this on Monday about her ex- boyfriend and stated, I'm ready to let go and be done. Client reported she had been ignoring her ex-boyfriend over the weekend, but then got a call from him that he needed to go to the hospital as he was experiencing withdrawal symptoms. Client receptive to gentle challenging from therapist and stated she recognizes that without setting boundaries in this relationship, client will not make the progress she wants to make. Client identified things that could hold client back from setting the boundary and problem-solved strategies with therapist on how to overcome these things. Client shared one of her biggest barriers is that feels needed in the toxic relationship. Client's strategies included reaching out to her mother, spending more time with her sons, possibly volunteering, and journaling more often. Client and therapist discussed external versus internal locus of control and processed how client's external locus of control negatively impacts client. Client reported I let others determine how I feel which keeps client feeling stuck and frustrated. Client identified her goals for the remainder of her duration in IOP to be journal daily, find an activity that makes her feel needed, reach out to her mom, not reach out to her ex-boyfriend, and use healthy coping skills when she recognizes triggers. Risks/Concerns:: Client denies suicidal ideation, plan, and intent as of 06/12/18. Client future oriented throughout session as shown by her report of wanting to increase her social activities. Progress Toward Goals/Plan:: Client's progress is variable as she reports accomplishing some of her goals from last week, but overall, continues to struggle with managing emotions and implementing healthy coping skills due to ongoing interpersonal relationship issues. Last week client reported she was not willing to set boundaries with her ex-boyfriend who client describes as toxic. This week client shared ?I?m ready to be done and let go.? Client reported she recognizes more now that things will not change, and client is ?only hurting myself and him? by continuing with the relationship. Therapist discussed concerns with client regarding client?s inconsistent boundaries and report of lack of implementation of healthy coping skills while in IOP. Client was receptive and set goals with therapist that client reports belief will increase her progress before discharge. Client reports plan to work on two of these goals this week and continue going to the library. Client to continue IOP to increase consistency of healthy coping skills, increase emotional regulation, and prevent decompensation. Time Stopped:: 13:14
--- NOTE | 2018-06-13 09:10 | BH.SGPN.GN ---
Behaviors/Verbalizations/Mental Status: [] Eye contact is good. Motor activity is appropriate. Appearance is casual. Speech is Appropriate. Mood is flat. Affect is anxious/irritable. Thoughts are linear and logical. No evidence of psychosis. Reviewed daily check in sheet and no reports of suicidal ideations or intent. Client Response/Progress/Benefit: [] Pt spoke when prompted. Did not provide feedback to peers. Emotion for today is stressed out. Would not elaborate much on this except to discuss some small frustrations this AM such as her phone ringing as she was getting ready. She was very upset about this however again would not elaborate. Positive she reported was today being Halloween as she dressed up for group today. Benefited from group support and encouragement. Will continue in IOP to prevent decompensation, stabilize mood, and improve daily functioning. Narrative Note: []
== END 2018-06-13 23:59 ==
LOC: BHIOP 09:00
PROVIDERS: Family Provider Family Medicine; PCP Family Medicine; Visit Provider Psychiatry & Neurology Psychiatry
DX: F31.81 Bipolar II disorder (principal); F43.10 Post-traumatic stress disorder, unspecified; Z72.0 Tobacco use; Z72.89 Other problems related to lifestyle
CPT/HCPCS: 90833; 99214; H0035; H2012; H2020; T1002; 90832; 90837

== ENCOUNTER 2018-06-18 09:00 | Outpatient (RCR) | payer MEDICAID, SELFPAY ==
--- NOTE | 2018-06-18 09:02 | BH.SGPN.GN ---
Behaviors/Verbalizations/Mental Status: []Client alert and oriented, neatly dressed and groomed-wearing makeup and earrings. Eye contact good. Motor activity appropriate. Speech within normal limits. Affect congruent-smiling, mood euthymic. Thoughts linear, logical, no signs of hallucinations or delusions. Reviewed client?s symptom tracker, no risk for suicidal ideation, plan, or intent as of 06/18/18. Client Response/Progress/Benefit: []Client responded well to session, engaged throughout. Client reports feeling ?ecstatic? today as client had numerous positives over the weekend and it is her birthday today. Client?s positives included spending time with a friend, going to [employer] with her son and for her birthday, and having a good visit with her brother on Monday. Client reported ?it felt good to know people other than my care for me like that.? Client reported her current stressor is a phone call client needs to have but is not looking forward to. Client appeared to benefit from connecting with peers and reflecting on positives. Progress noted as client reports improved mood and increased self-care, but she can continue to increase internal coping skills and mood stability.
--- NOTE | 2018-06-18 10:10 | BH.SGPN.GN ---
Behaviors/Verbalizations/Mental Status: [] Pt eye contact good, casually dressed, motor activity appropriate, speech normal rate and tone, mood dysthymic, constricted affect, thoughts linear and intact, no evidence of delusions or hallucinations. Client Response/Progress/Benefit: []Pt passive participant AEB pt being mostly quiet throughout session and only contributing if elicited pt therapist. 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 Pt appeared to connect with peers comments about the importance of being resilient AEB pt nodding her head. Pt worked cooperatively with her small group to identify how the different factors can help improve one's resilience. Pt seemed to benefit from increased awareness of the different components that can help increase pt's resiliency. Narrative Note: []
--- NOTE | 2018-06-18 11:15 | BH.SGPN.GN ---
Behaviors/Verbalizations/Mental Status: [] Pt eye contact good, casually dressed, motor activity appropriate, speech normal rate and tone, mood dysthymic, constricted affect, thoughts linear and intact, no evidence of delusions or hallucinations. Client Response/Progress/Benefit: []Pt passive participant throughout session, contributing to discussion if elicited by therapist. Pt worked cooperatively with others during the challenge activity. Pt reported the resiliency factor she wants to strengthen is moving towards goals.. Pt seemed to benefit from focusing on which resiliency factor pt would like to strengthen. Pt to continue IOP level of care to decrease depression, increase use of healthy coping, and prevent decompensation. Narrative Note: []
--- NOTE | 2018-06-18 14:13 | BH.MDN ---
Multi-Disciplinary Note - Note 45-min Individual Time Started:: 12:30 Date: 06/18/18 Purpose of session/treatment goals addressed:: The purpose of this session was to process emotions and prepare client for an upcoming stressor. Another goal was to continue work on thought challenging and boundaries. Eye Contact:: Good Appearance:: Neat - wearing earrings and makeup. Speech:: Tangential, Rambling Mood:: Euthymic, Anxious Affect:: Congruent Thoughts:: Circular, No evidence of hallucinations/delusions noted Staff Interventions:: Therapist used active listening and gentle challenging of cognitive distortions as client shared an upcoming stressor. Therapist processed client's emotions and the negative thoughts contributing to her increased anxiety. Therapist reviewed client's triggers as well as coping strategies that client can use before, during, and after the stressful situation to help client regulate emotions and challenge negative thinking. Therapist reviewed client's homework from last week and praised client for increased efforts toward her treatment goals. Therapist and client discussed plans for discharge next week. Client Response:: Client responded well to session, open to meeting with therapist. Client started the session by reading one of her journal entries and reported writing has been helpful for releasing emotions. Client reflected on progress since last session, sharing she spent time with positive supports over the weekend and did some baking. Client reported her mood has improved and so has her confidence. Client stated, today in group I shared an idea and the group went with it and I thought that was pretty cool. Client reported usually lets other's take charge, so she is proud of herself. Client shared overall, she is feeling happy and positive, but she is anxious about a phone call client is to have with her ex's mother. Client reported I know she is just going to yell at me and won't let me talk the entire time. Client responded well to gentle challenging of cognitive distortions and recognized she is jumping to conclusions. Client and therapist reviewed words and topics that would trigger client during the conversation and discussed coping skills for client to use before, during, and after the conversation. Client shared making the call outside of IOP would reduce anxiety. Client also wrote out positive reminders on a notecard that she can read while talking on the phone. Client responded well to the best case, worst case, most realistic case technique and shared even if the worst case happens I still have my positives from today and they can't take that away. Risks/Concerns:: Client denies suicidal ideation, plan, and intent as of 06/18/18. Progress Toward Goals/Plan:: Client demonstrating progress toward treatment goals as she reports increased consistency with boundary setting, self-care, and thought challenging. Client's mood and motivation have improved since last week. Client reports reduced isolation and depressive symptoms this week due to reaching out to supports, journaling, and focusing on letting go. Client continues to report difficulty with challenging and replacing negative self-talk messages as well as some ongoing interpersonal relationship issues. Client to continue IOP to prevent decompensation and increase consistency with applying coping skills and thought challenging. Time Stopped:: 13:21
--- NOTE | 2018-06-20 09:02 | BH.SGPN.GN ---
Behaviors/Verbalizations/Mental Status: []Client alert and oriented, casual dress. Eye contact good. Motor activity appropriate. Speech within normal limits. Affect bright-smiling, mood euthymic. Thoughts linear, logical, no signs of hallucinations or delusions. Reviewed client?s symptom tracker, no risk for suicidal ideation, plan, or intent as of 06/20/18. Client Response/Progress/Benefit: []Client responded well to session, smiling and sharing encouraging comments to peers. Client reports feeling ?enthusiastic? today. Client identified her daily positives to be waking up to a call from her friend ?it just made my day.? Client stated another positive was she faced her fears on Monday and made a phone call that ended up going well and ?not at all what I expected.? Client shared her mood has been positive most of the week and that she does not have many stressors. Client reported next week is her last week, so client shared she is stressed about leaving IOP. Client able to identify the positives of graduating from IOP such as the progress she has made. Client appeared to benefit from reflecting on progress. Client to continue IOP to promote gains and increase consistency of healthy coping skills.
--- NOTE | 2018-06-20 10:08 | BH.SGPN.GN ---
Behaviors/Verbalizations/Mental Status: []Client alert and oriented, casual dress. Eye contact good. Motor activity appropriate. Speech within normal limits. Affect congruent, mood euthymic. Thoughts linear, logical, no signs of hallucinations or delusions. Client Response/Progress/Benefit: []Client responded well to session, providing input to discussion. Client appeared to connect with the quote and topic of cognitive distortions sharing, ?when we are alone we can get negative easier.? Client reported if one does not challenge cognitive distortions it can lead to increased depression, conflict, and low self-esteem. Client helped the group discuss the most common types of distortions and stated she most often uses jumping to conclusions, personalizing, and emotional reasoning. Client gave an example of a distorted thought she recently had where she used fortune telling. Client reported ?I thought this phone call was going to be terrible and it wasn?t like that at all.? Client appeared to benefit from gaining insight to the cognitive distortions she uses and how they impact mental health. Client to continue IOP to promote gains and increase consistent use of healthy coping skills.
--- NOTE | 2018-06-20 11:15 | BH.SGPN.GN ---
Behaviors/Verbalizations/Mental Status: [Client actively engaged in session and provided more verbal input than usual baseline. She maintained consistent eye contact and remained attentive. Casual attire, appropriate grooming/hygiene. Motor activity remained WNL slight tremor due to medical hx. Client speech a normal rate and tone slight delay/slur consistent w/stroke hx, mood euthymic smiling throughout. Affect congruent with mood. Client thoughts remained linear and logical, no evidence of delusions or hallucinations.] Client Response/Progress/Benefit: [Client receptive of session and remained an active group participant, providing increased input in discussion and taking on an active role in activity. Client contributed to discussion reviewing potential barriers in combating distorted thoughts as well as strategies for improving ability to do so. She benefitted from being gently challenged regarding her use of black and white thinking during the problem solving portion of activity. Client identified how use of dichotomous thinking prevented client from identifying alternative ways to approach the tasked and resulted in the group remaining stuck. She displayed progress in her ability to relate this back to how similar thinking has prevented progress in management of mental health sx in her daily life. She would benefit from continuing to work on identifying thinking errors and distortions impacting mental health in order to increase insight and better application of skills learned.] Narrative Note: []
--- NOTE | 2018-06-22 15:28 | BH.COMM ---
Communication Note - Communication with Client Communication Note: Client reported she overslept which was why she missed her scheduled IOP session today. Client plans to attend group on Monday06/26/18.
--- NOTE | 2018-06-26 09:00 | BH.SGPN.GN ---
Behaviors/Verbalizations/Mental Status: []Client alert and oriented, casual dress, hygiene good. Eye contact good. Motor activity appropriate. Speech within normal limits. Affect constricted, mood euthymic. Thoughts linear, logical, no signs of hallucinations or delusions. Reviewed client?s symptom tracker, no risk for suicidal ideation, plan, or intent as of 06/26/18. Client Response/Progress/Benefit: []Client responded well to session, participating in activity and discussion. Client reported enjoying the mindfulness-G.L.A.D activity as it helped her focus on positives. Client reports feeling ?accomplished? today as it is client?s last week in [facility] and she has been working on personal goals. Client identified daily positives including having a good weekend, journaling consistently on Sundays, and working on positive affirmations. Client shared ?it gets dark so early? which is client?s stressor today as it is a trigger for depression. Client receptive to feedback from group on ways to cope with the time change. Client appeared to benefit from connecting with peers and learning new coping strategies. Progress noted in client?s improved mood and increased application healthy coping skills. Client to discharge from [facility] Monday, but she can benefit from two more sessions of [facility] for aftercare planning and to increase consistency of coping skill implementation.
--- NOTE | 2018-06-26 10:00 | BH.SGPN.GN ---
Behaviors/Verbalizations/Mental Status: [] Eye contact is good. Motor activity is appropriate. Appearance is casual. Speech is Appropriate. Mood is anxious. Affect is congruent. Thoughts are linear and logical. No evidence of psychosis. Reviewed daily check in sheet and no reports of suicidal ideations or intent. Client Response/Progress/Benefit: [] Pt was an active participant in group activity and shared when appropriate. When drawing her picture about her current reality pt ariana something that depicted being anxious and unsure regarding the status of her relationships. Shared that her current reality is improved from when she started the program due to setting up boundaries and identifying toxic relationships. Her desired reality drawing included her being relaxed and looking out her favorite window in the house. Describes this as being in a state of peace, being comfortable with herself and her decisions, and content in her relationships. Progress noted per pt report. Benefited from group by increasing self-awareness of her current mental state and her desired mental state. Narrative Note: []
--- NOTE | 2018-06-26 11:00 | BH.SGPN.GN ---
Behaviors/Verbalizations/Mental Status: [] Eye contact is good. Motor activity is appropriate. Appearance is casual. Speech is Appropriate. Mood is depressed. Affect is flat. Thoughts are linear and logical. No evidence of psychosis. Client Response/Progress/Benefit: [] Pt was an active participant in group activity. Pt was able to identify obstacles that are keeping her from reaching her desired reality. Pt reports her obstacles to desired reality are managing loneliness, loss, and grief; lack of motivation; poor boundaries, lack of energy, and finding purpose in day to day (finding a job). Pt along with peers worked together to come up with some strategies to overcome these obstacles. Benefited from identifying obstacles to desired reality and developing strategies to overcome obstacles. Will continue in IOP to maintain gains and prevent decompensation. Narrative Note: []
--- NOTE | 2018-06-28 10:41 | BH.COMM ---
Communication Note - Communication with Client Communication Note: Client called to cancel her scheduled IOP session today due to car issues. Client reports plan to attend group tomorrow, 06/29/18 for her last day.
--- NOTE | 2018-06-29 08:07 | BH.AFTERPLAN ---
Aftercare Plan - Demographics Treatment End Date:: 06/29/18 Psychiatrist:: Kayla Garcia Psychiatrist Office #:: [id number] [facility]/IOP Therapist:: Shahana Garg Therapist Phone #:: [phone] - Medications Home Medications: Home Medications Clonazepam [Klonopin] 2 mg PO TID 06/15/14 Quetiapine Fumarate [Seroquel] 50 mg PO QHS 06/15/14 Propranolol HCl [Inderal (Beta Valencia)] 40 mg PO BID 01/18/16 Clopidogrel Bisulfate [Plavix] 75 mg PO QHS 07/03/16 Glimepiride [Amaryl] 2 mg PO DAILY 01/09/17 Atorvastatin Calcium [Lipitor] 80 mg PO QHS 03/29/18 Acetaminophen [Tylenol Tablet] 650 mg PO Q4H PRN PRN tablet 03/31/18 Pantoprazole Sodium [Protonix] 40 mg PO DAILY #30 tab 03/31/18 Lamotrigine [Lamictal] 25 mg PO DAILY 06/08/18 - Plan Details Progress/Aftercare Plan Details:: Nara, you have made great strides since starting IOP! You have worked to set boundaries that will support your mental health and in doing so, you have learned to be kinder to yourself. You have improved with recognizing negative thoughts and challenging them. You have stopped isolating- you go to the library and have reached out to your supports. You are more motivated to accomplish goals and have increased consistency of self-care. You use journaling, positive affirmations, coloring, and talking with your supports to manage symptoms, work through difficult moments, and increase self-esteem. You have learned that saying no is important and sometimes necessary. You have learned ways to manage depression and anxiety and you can identify warning signs to help you maintain progress.
--- NOTE | 2018-06-29 09:01 | BH.IGGP_ITS ---
Aftercare Plan - Demographics Treatment End Date:: 06/29/18 Psychiatrist:: Kayla Garcia Psychiatrist Office #:: [id number] [facility]/IOP Therapist:: Shahana Garg Therapist Phone #:: [phone] - Medications Home Medications: Home Medications Clonazepam [Klonopin] 2 mg PO TID 06/15/14 Quetiapine Fumarate [Seroquel] 50 mg PO QHS 06/15/14 Propranolol HCl [Inderal (Beta Valencia)] 40 mg PO BID 01/18/16 Clopidogrel Bisulfate [Plavix] 75 mg PO QHS 07/03/16 Glimepiride [Amaryl] 2 mg PO DAILY 01/09/17 Atorvastatin Calcium [Lipitor] 80 mg PO QHS 03/29/18 Acetaminophen [Tylenol Tablet] 650 mg PO Q4H PRN PRN tablet 03/31/18 Pantoprazole Sodium [Protonix] 40 mg PO DAILY #30 tab 03/31/18 Lamotrigine [Lamictal] 25 mg PO DAILY 06/08/18 - Plan Details Progress/Aftercare Plan Details:: Nara, you have made great strides since starting IOP! You have worked to set boundaries that will support your mental health and in doing so, you have learned to be kinder to yourself. You have improved with recognizing negative thoughts and challenging them. You have stopped isolating- you go to the library and have reached out to your supports. You are more motivated to accomplish goals and have increased consistency of self-care. You use journaling, positive affirmations, coloring, and talking with your supports to manage symptoms, work through difficult moments, and increase self-esteem. You have learned that saying no is important and sometimes necessary. You have learned ways to manage depression and anxiety and you can identify warning signs to help you maintain progress.
--- NOTE | 2018-06-29 14:43 | BH.COMM ---
Communication Note - Communication with Client Communication Note: Client unable to make it to her scheduled IOP group and individual session today due to illness. Therapist unable to see client this week due to client's cancellations. Today was scheduled to be client's discharge date, but it will be rescheduled for next week. Therapist to discuss situation with treatment team.
--- NOTE | 2018-07-04 09:10 | BH.AFTERPLAN ---
Aftercare Plan - Demographics Treatment End Date:: 07/04/18 Psychiatrist:: Kayla Garcia Psychiatrist Office #:: [id number] [facility] Therapist:: Shahana Garg Therapist Phone #:: [phone] - Medications Home Medications: Home Medications Clonazepam [Klonopin] 2 mg PO TID 06/15/14 Quetiapine Fumarate [Seroquel] 50 mg PO QHS 06/15/14 Propranolol HCl [Inderal (Beta Valencia)] 40 mg PO BID 01/18/16 Clopidogrel Bisulfate [Plavix] 75 mg PO QHS 07/03/16 Glimepiride [Amaryl] 2 mg PO DAILY 01/09/17 Atorvastatin Calcium [Lipitor] 80 mg PO QHS 03/29/18 Acetaminophen [Tylenol Tablet] 650 mg PO Q4H PRN PRN tablet 03/31/18 Pantoprazole Sodium [Protonix] 40 mg PO DAILY #30 tab 03/31/18 Lamotrigine [Lamictal] 25 mg PO DAILY 06/08/18 - Plan Details Progress/Aftercare Plan Details:: Nara, you have made great strides since starting [facility]! You have worked to set boundaries that will support your mental health and in doing so, you have learned to be kinder to yourself. You have improved with recognizing negative thoughts and challenging them. You have stopped isolating- you go to the library and have reached out to your supports. You are more motivated to accomplish goals and have increased consistency of self-care. You use journaling, positive affirmations, coloring, and talking with your supports to manage symptoms, work through difficult moments, and increase self-esteem. You have learned that saying no is important and sometimes necessary. You have learned healthy ways to manage depression and anxiety and you can identify warning signs to help you maintain progress. Strategies for Success:: 1. MAINTENANCE!! Remember to pay attention to your emotions (mood chart), thoughts, and supports. 2. Keep up with those goals! Use the calendar you've made to stay on track and focused. 3. Remember, self-care is not selfish, it's necessary! Make decisions based on what will get you closer to finding yourself and reaching your personal and mental health goals. 4. Journal! Affirmations!! 5. Reach out (and keep up with) positive supports! Follow up with appointments and be around those who want to help you. 6. Watch out for being too much of an emotional sponge, you are not responsible for managing other people's emotions or happiness. 7. Challenge distortions!! 8. Set small goals daily. 9. Remember sometimes it is what it is but that doesn't mean you have to stay miserable. 10. Give yourself time to reflect on progress! You have made some good changes! - Appointments Appointments/Referrals to Other Services:: 1. Follow up with Ratna. Next appointment 07/12/18. 2. Follow up with psychiatry in 4 months- Dr. Cooper at [facility]. 3. Follow up with Dr. Dill in Sep. 4. Keep going to the library! 5.[facility]- possibly [facility]. 6. 2-week [facility] with [facility] 07/18/18 2:30pm
--- NOTE | 2018-07-04 09:16 | BH.IGGP_ITS ---
Aftercare Plan - Demographics Treatment End Date:: 07/04/18 Psychiatrist:: Kayla Garcia Psychiatrist Office #:: [id number] [facility] Therapist:: Shahana Garg Therapist Phone #:: [phone] - Medications Home Medications: Home Medications Clonazepam [Klonopin] 2 mg PO TID 06/15/14 Quetiapine Fumarate [Seroquel] 50 mg PO QHS 06/15/14 Propranolol HCl [Inderal (Beta Valencia)] 40 mg PO BID 01/18/16 Clopidogrel Bisulfate [Plavix] 75 mg PO QHS 07/03/16 Glimepiride [Amaryl] 2 mg PO DAILY 01/09/17 Atorvastatin Calcium [Lipitor] 80 mg PO QHS 03/29/18 Acetaminophen [Tylenol Tablet] 650 mg PO Q4H PRN PRN tablet 03/31/18 Pantoprazole Sodium [Protonix] 40 mg PO DAILY #30 tab 03/31/18 Lamotrigine [Lamictal] 25 mg PO DAILY 06/08/18 - Plan Details Progress/Aftercare Plan Details:: Nara, you have made great strides since starting [facility]! You have worked to set boundaries that will support your mental health and in doing so, you have learned to be kinder to yourself. You have improved with recognizing negative thoughts and challenging them. You have stopped isolating- you go to the library and have reached out to your supports. You are more motivated to accomplish goals and have increased consistency of self-care. You use journaling, positive affirmations, coloring, and talking with your supports to manage symptoms, work through difficult moments, and increase self-esteem. You have learned that saying no is important and sometimes necessary. You have learned healthy ways to manage depression and anxiety and you can identify warning signs to help you maintain progress. Strategies for Success:: 1. MAINTENANCE!! Remember to pay attention to your emotions (mood chart), thoughts, and supports. 2. Keep up with those goals! Use the calendar you've made to stay on track and focused. 3. Remember, self-care is not selfish, it's necessary! Make decisions based on what will get you closer to finding yourself and reaching your personal and mental health goals. 4. Journal! Affirmations!! 5. Reach out (and keep up with) positive supports! Follow up with appointments and be around those who want to help you. 6. Watch out for being too much of an emotional sponge, you are not responsible for managing other people's emotions or happiness. 7. Challenge distortions!! 8. Set small goals daily. 9. Remember sometimes it is what it is but that doesn't mean you have to stay miserable. 10. Give yourself time to reflect on progress! You have made some good changes! - Appointments Appointments/Referrals to Other Services:: 1. Follow up with Ratna. Next appointment 07/12/18. 2. Follow up with psychiatry in 4 months- Dr. Cooper at [facility]. 3. Follow up with Dr. Dill in Sep. 4. Keep going to the library! 5.[facility]- [facility]. 6. 2-week follow up with Shahana [facility] 07/18/18 2:30pm
--- NOTE | 2018-07-04 10:10 | BH.SGPN.GN ---
Behaviors/Verbalizations/Mental Status: [] Eye contact is good. Motor activity is appropriate. Appearance is casual. Speech is Appropriate. Mood is depressed. Affect is flat. Thoughts are linear and logical. No evidence of psychosis. Client Response/Progress/Benefit: [] Pt participated minimally in in group discussion and activity. Did contribute to the group discussion on defining coping skills as methods or strategies that one uses to manage stressful situations and emotions. Group brainstormed some internal and external coping skills. Along with the group discussed how inappropriate coping skills (isolation) effect us and at times can cause more problems. Also along with other group members discussed the ways in which appropriate coping skills help us manage our emotions and improve wellness. Progress noted as through group activity and discussion pt was able to identify internal and external coping skills as well as the effect of good and bad coping skills have on our well-being. Will continue in IOP to maintain gains with expected discharge this week. Narrative Note: []
--- NOTE | 2018-07-04 10:28 | BH.MDN ---
Multi-Disciplinary Note - Note 45-min Individual Time Started:: 09:15 Date: 07/04/18 Purpose of session/treatment goals addressed:: The purpose of this session was to provide closure, evaluate progress, review strategies for success, and discuss aftercare plan. Eye Contact:: Good Motor Activity:: Appropriate Appearance:: Neat Speech:: Tangential Mood:: Euthymic - positive outlook., Other - Client reports feeling kind of low due to current issues with her Affect:: Constricted Thoughts:: Circular, No evidence of hallucinations/delusions noted Staff Interventions:: Therapist used open-ended questions to explore client's thoughts on personal progress. Therapist processed a recent stressor with client and helped client explore options for managing the stressor. Therapist reviewed strategies and coping skills with client to promote gains and prevent setbacks. Therapist discussed aftercare plan with client and used strengths-perspective to empower client. Therapist gave client IOP surveys and a quote collage to provide closure. Client Response:: Client responded well to session, open to meeting with therapist. Client showed therapist her journal which included daily goals client identified that will promote the gains client made in [facility]. Client wrote at the bottom of her daily goals remember life happens, but I will stay focused and client shared this will help her remind herself that I can bounce back. Client shared a recent relationship stressor with therapist and was receptive to options for managing that stressor. Client stated she has come to realize if I was alone it wouldn't be that bad. This demonstrates significant progress for client as client self-reports as codependent. Client shared she wants to continue working on finding herself and not being an emotional sponge when she discharges from [facility]. Client and therapist discussed strategies that will help client maintain progress, pay attention to warning signs, and manage her emotions in healthy ways. Client expressed appreciation for the staff and IOP program. Risks/Concerns:: Client denies suicidal ideation, plan, and intent as of 07/04/18. Progress Toward Goals/Plan:: Client has demonstrated progress with reducing isolation, anxiety, and depressive symptoms. Client self-reports improved boundaries, self-care, and increased application of healthy coping skills. Client shared she has been using daily devotions, affirmations, and journaling which is an improvement from client's treatment plan review. Client acknowledges she can continue to improve maintenance of coping skills and work on increased self-worth. Client to discharge from [facility] as she has made progress towards her treatment goals and has experienced increased mood stability for the past two weeks. Client to follow up with her outpatient therapist, Ratna, at [facility] and psychiatrist Dr. Zamarripa at [facility]. Time Stopped:: 10:00
--- NOTE | 2018-07-04 10:59 | BH.MDN_ITS ---
Multi-Disciplinary Note - Note 45-min Individual Time Started:: 09:15 Date: 07/04/18 Purpose of session/treatment goals addressed:: The purpose of this session was to provide closure, evaluate progress, review strategies for success, and discuss aftercare plan. Eye Contact:: Good Motor Activity:: Appropriate Appearance:: Neat Speech:: Tangential Mood:: Euthymic - positive outlook., Other - Client reports feeling kind of low due to current issues with her Affect:: Constricted Thoughts:: Circular, No evidence of hallucinations/delusions noted Staff Interventions:: Therapist used open-ended questions to explore client's thoughts on personal progress. Therapist processed a recent stressor with client and helped client explore options for managing the stressor. Therapist reviewed strategies and coping skills with client to promote gains and prevent setbacks. Therapist discussed aftercare plan with client and used strengths-perspective to empower client. Therapist gave client IOP surveys and a quote collage to provide closure. Client Response:: Client responded well to session, open to meeting with therapist. Client showed therapist her journal which included daily goals client identified that will promote the gains client made in [facility]. Client wrote at the bottom of her daily goals remember life happens, but I will stay focused and client shared this will help her remind herself that I can bounce back. Client shared a recent relationship stressor with therapist and was receptive to options for managing that stressor. Client stated she has come to realize if I was alone it wouldn't be that bad. This demonstrates significant progress for client as client self-reports as codependent. Client shared she wants to continue working on finding herself and not being an emotional sponge when she discharges from [facility]. Client and therapist discussed strategies that will help client maintain progress, pay attention to warning signs, and manage her emotions in healthy ways. Client expressed appreciation for the staff and IOP program. Risks/Concerns:: Client denies suicidal ideation, plan, and intent as of 07/04/18. Progress Toward Goals/Plan:: Client has demonstrated progress with reducing isolation, anxiety, and depressive symptoms. Client self-reports improved boundaries, self-care, and increased application of healthy coping skills. Karla kavon shared she has been using daily devotions, affirmations, and journaling which is an improvement from client's treatment plan review. Client acknowledges she can continue to improve maintenance of coping skills and work on increased self- worth. Client to discharge from [facility] as she has made progress towards her treatment goals and has experienced increased mood stability for the past two weeks. Client to follow up with her outpatient therapist, Ratna, at [facility] and psychiatrist Dr. Zamarripa at [facility]. Time Stopped:: 10:00
--- NOTE | 2018-07-04 11:00 | BH.DS_ITS ---
Discharge Summary - Demographics Date of Admission:: 05/02/18 Discharge Date: 07/04/18 Presenting Problems at Admission:: Client is a 48-year-old female who was referred to the behavioral medicine [facility] for mood symptoms and anxiety. Client reported a long-standing history of mood symptoms consistent with bipolar disorder since her teenage years. At admission, client reported worsening symptoms due to relationship issues. Client endorsed a depressed mood with feelings of sadness, anhedonia, decreased energy, and difficulty concentrating. Client reported negative self-talk, low self-esteem, and isolation. Client also shared having ruminative anxiety about dynamics with her, at the time, live-in boyfriend as well as panic attacks 2-3 times per month. Prior to admission, client had an alcohol use relapse due to worsening depressive symptoms. Client stated her symptoms were impacting her ability to function at her baseline and her overall quality of life. Discharge Diagnoses:: Bipolar 2 disorder F 31.81; PTSD; Alcohol use disorder-partial remission; Nicotine use disorder Reason for Discharge:: Client has made progress towards treatment goals as evidenced by reduced DSM-5 scores for anxiety and self-report of increased mood stability. Client also reports increased application of healthy coping skills to manage depressive symptoms. For these reasons, client no longer meets criteria for [facility] level of care. - Treatment Progress During Treatment & Response: Client responded mostly well to treatment as client connected well with peers, was receptive during sessions, and reported a positive outlook at discharge. In the past two weeks, client demonstrated increased consistent application of healthy coping skills, but throughout the duration of her time in the program, client struggled with maintenance. Attendance and fluctuating interpersonal relationships may have contributed to client's inconsistency at times. Overall, client responded well in group sessions as she often took notes and provided supportive statements to peers. During individual sessions client was receptive and mostly consistent with completing homework assignments. Client started journaling and setting daily goals which appeared to help client more effectively express her emotions and keep track of personal progress. Client was receptive to gentle challenging from therapist on topics of boundaries, communication, and cognitive distortions. Client?s DSM-5 cross-cutting scores for anxiety decreased since starting IOP going from 10 out of 12 to 8 out 10. At discharge client reported l ess panic and use of healthier coping skills to manage stress. Client?s DSM-5 scores for depression did not decrease going from 3 out of 8 to 7 out of 8. Client acknowledges this is due to situational stressors and interpersonal relationship issues. Client reports even though she is feeling ?kind of low? client continues to report motivation, positive outlook, increased socialization. Client appears to be actively using healthy coping skills to manage the symptoms which demonstrates progress. Per client report, she has increased self-awareness, self-care, and boundary setting which demonstrates progress as well. Issues Still to be Addressed:: Client can continue to work on increasing consistent application of healthy coping skills. Currently, client reports utilizing journaling, affirmations, and setting small goals to manage her mental health symptoms. However, there is a concern post IOP discharge of client's follow through as evidenced by client?s inconsistency with attendance and application of coping skills while in IOP. Client has shown progress with identifying cognitive distortions, but she could continue to improve her ability to challenge negative thoughts without external support. Client reported she would like to continue working on finding herself which includes increasing self-worth and positive affirmations of self. Client continues to struggle with interpersonal relationship issues and could benefit from ongoing work on boundaries, communication, emotional regulation, and increasing skills to promote self-esteem and independence. Lastly, client has demonstrated progress with reducing isolative behaviors, but client continues to have limited social supports and could benefit from increasing her support network. Discharge Recommendations/Instructions:: Client recommended to follow up with her outpatient mental health providers for continuity of care. Client has an appointment with her outpatient therapist, Ratna, at [facility] on 07/12/18. Client also recommended to follow up with Dr. Crespo at [facility] for psychiatry. Client had an appointment with Dr. Crespo in May, so her next appointment will not be for another 3-4 months. Client encouraged to continue attending classes at the library as client reports they motivate her and provide a sense of community. Lastly, client reported interest in going to the [employer] for additional mental health support. Discharge Handout: Complete Discharge Handout with client on aftercare options and continuity of care.
--- NOTE | 2018-07-04 11:12 | BH.SGPN.GN ---
Behaviors/Verbalizations/Mental Status: [Client oriented x3, at times appearing distracted by self, casually dressed. Eye contact fair. Motor activity appropriate. Speech within normal limits - slight slur due to hx of previous stroke. Affect congruent, mood euthymic. Thoughts linear, logical, no signs of hallucinations or delusions - at times appearing distracted by own thoughts. ] Client Response/Progress/Benefit: [Client receptive of session, providing ideas for health coping strategies. Client helped the group discuss the different categories of coping skills and the pros and cons of each. Client created a coping skills menu with a coping skill from each category- distraction, grounding, emotional release, self-love, and thought challenge. Client?s menu included: practicing self-care via daily hygiene routine, listening to music, reaching out to healthy supports, and challenging negative thoughts. Client discussed that music often helps to relax client and get her mind off of unhelpful thoughts. Client appeared to benefit from gaining numerous coping skills and learning the pros and cons of each coping skill category. Client to continue IOP to prevent decompensation and increase consistency of healthy coping skills.] Narrative Note: []
== END 2018-07-04 14:00 ==
LOC: BHIOP 09:00
PROVIDERS: Family Provider Family Medicine; PCP Family Medicine; Visit Provider Psychiatry & Neurology Psychiatry
DX: F31.81 Bipolar II disorder (principal); F43.10 Post-traumatic stress disorder, unspecified; Z72.89 Other problems related to lifestyle; Z72.0 Tobacco use
CPT/HCPCS: H0035; H2012; H2020; 90834

== ENCOUNTER 2018-08-10 09:02 | Emergency (ER) | payer MEDICAID, SELFPAY ==
[2018-08-10 09:03] VITALS: BP 125/87; PULSE 85; RESP 12; TEMP 36.6; O2SAT 96; BMI 25.6
[2018-08-10 09:14] VITALS: BP 125/58; PULSE 65; RESP 17; O2SAT 95
--- NOTE | 2018-08-10 09:15 | ED.VISSUMM ---
- ER Visit Summary Date of Service: 08/10/18 Chief Complaint: Dental pain History of Present Illness: The patient is a 48 F who was sent from theclinic because the dentist was not able to see her. She presents because of tooth pain. She states the tooth broke a while ago. She now presents with pain and swelling. She denies fever, chills night sweats. Denies a traumatic fever, murmur, SBE, IV drug use or being immune suppressed. She does have a sniffing a past medical history which includes diabetes, dyslipidemia, hypertension and CVA. She is a smoker and does have history of alcohol dependency. Physical Examination: Vital signs noted and unremarkable. She is not febrile. She appears uncomfortable. She has a depressed affect. There is obvious decay with exposure of pulp second right lower molar. There is inflammation of the gum with no fluctuance. There is no trismus. There is no sub-mandibular or cervical lymphadenopathy. Trach is midline. There is no stridor. There is no evidence of Hasmukh's angina. I.e. there is no dysphonia, dysphasia. Heart is regular without murmur, gallop or rub. S1 and S2 are normal. Lungs are clear to auscultation with good movement of air bilaterally. Test Results: Not indicated Emergency Department Course and Treatment: With patient's past medical history NSAIDs are not recommended. She was treated with [place] and clindamycin. Treatment Plan: Keep appointment with dentist that [facility] for August 19, 2018. Disposition: Discharge to home with prescription for [place] and clindamycin Impression: Dental abscess right lower molar with exposure of pulp This note was generated with [employer] dictation software. It may contain incorrect words, spelling, and punctuation that were not noted in review of the chart prior to signing ED Disposition - Plan for ED Patient: Disposition: Home or Assisted Living Chief Complaint: Dental Instructions: Dental Abscess Prescriptions: Hydrocodone Bitart/Apap 5-325 [[place] 5MG-325MG] 1 tablet PO Q6H PRN PRN 3 Days #10 tablet PRN Reason: Pain Clindamycin HCl [Cleocin] 300 mg PO Q6H #40 capsule Referrals: Dennise Velasquez [NON-STAFF] - Keep Robert appointment Additional Instructions: Your prescription was electronically transmitted to [facility] pharmacy located on [facility].
--- NOTE | 2018-08-10 09:19 | ED.DCSUM_ITS ---
- ER Visit Summary Date of Service: 08/10/18 Chief Complaint: Dental pain History of Present Illness: The patient is a 48 F who was sent from theclinic because the dentist was not able to see her. She presents because of tooth pain. She states the tooth broke a while ago. She now presents with pain and swelling. She denies fever, chills night sweats. Denies a traumatic fever, murmur, SBE, IV drug use or being immune suppressed. She does have a sniffing a past medical history which includes diabetes, dyslipidemia, hypertension and CVA. She is a smoker and does have history of alcohol dependency. Physical Examination: Vital signs noted and unremarkable. She is not febrile. She appears uncomfortable. She has a depressed affect. There is obvious decay with exposure of pulp second right lower molar. There is inflammation of the gum with no fluctuance. There is no trismus. There is no sub-mandibular or cervical lymphadenopathy. Trach is midline. There is no stridor. There is no evidence of Hasmukh's angina. I.e. there is no dysphonia, dysphasia. Heart is regular without murmur, gallop or rub. S1 and S2 are normal. Lungs are clear to auscultation with good movement of air bilaterally. Test Results: Not indicated Emergency Department Course and Treatment: With patient's past medical history NSAIDs are not recommended. She was treated with [place] and clindamycin. Treatment Plan: Keep appointment with dentist that [facility] for August 19, 2018. Disposition: Discharge to home with prescription for [place] and clindamycin Impression: Dental abscess right lower molar with exposure of pulp This note was generated with [employer] dictation software. It may contain incorrect words, spelling, and punctuation that were not noted in review of the chart prior to signing ED Disposition - Plan for ED Patient: Disposition: Home or Assisted Living Chief Complaint: Dental Instructions: Dental Abscess Prescriptions: Hydrocodone Bitart/Apap 5-325 [[place] 5MG-325MG] 1 tablet PO Q6H PRN PRN 3 Days #10 tablet PRN Reason: Pain Clindamycin HCl [Cleocin] 300 mg PO Q6H #40 capsule Referrals: Dennise Velasquez [NON-STAFF] - Keep Robert appointment Additional Instructions: Your prescription was electronically transmitted to [facility] pharmacy located on [facility].
[2018-08-10] MEDS: Clindamycin HCl 150 MG Capsule 300 MG PO (09:20)
[2018-08-10] MEDS: HYDROcodone Bitartrate/Apap 5/325 Tablet PO (09:20)
== END 2018-08-10 09:36 | disposition home or self-care (01) ==
PROVIDERS: Emergency Provider Emergency Medicine; Family Provider Family Medicine; PCP Family Medicine
DX: K04.7 Periapical abscess without sinus (principal); K05.10 Chronic gingivitis, plaque induced; K08.89 Other specified disorders of teeth and supporting structures; E66.9 Obesity, unspecified; E11.9 Type 2 diabetes mellitus without complications; E78.00 Pure hypercholesterolemia, unspecified; I10 Essential (primary) hypertension; F32.9 Major depressive disorder, single episode, unspecified; Z86.73 Personal history of transient ischemic attack (TIA), and cerebral infarction without residual deficits; Z87.19 Personal history of other diseases of the digestive system; Z79.84 Long term (current) use of oral hypoglycemic drugs; Z79.02 Long term (current) use of antithrombotics/antiplatelets; Z79.899 Other long term (current) drug therapy; F17.200 Nicotine dependence, unspecified, uncomplicated; F10.20 Alcohol dependence, uncomplicated
CPT/HCPCS: 99282

== ENCOUNTER 2018-08-12 14:31 | Emergency (ER) | payer MEDICAID, SELFPAY ==
[2018-08-12 14:32] VITALS: BP 141/55; PULSE 83; RESP 16; TEMP 36.9; O2SAT 98; BMI 25.8
--- NOTE | 2018-08-12 15:18 | ED.VISSUMM ---
- ER Visit Summary Date of Service: 08/12/18 Chief Complaint: Dental pain History of Present Illness: The patient is a 48 F with right mandibular dental pain. She was seen here 2 days ago and prescribed V[place] and clindamycin. She did call and make an appointment with dentistry and has an appointment next week. She presents today for continued pain. She is having trouble eating and drinking. She is able to drink warm water. She is concerned because she is supposed to take her antibiotic with food. She is also concerned because her pharmacist told her to stop her Klonopin while she is on Vader because of an overdose risk. The patient is having increased anxiety symptoms. Physical Examination: Afebrile and vital signs unremarkable. Alert and oriented. No acute distress. Right mandibular molar tenderness. No abscess. No tongue elevation. No trismus. No lymphadenopathy. Good range of motion of her neck. Skin appears normal. Test Results: None indicated Emergency Department Course and Treatment: Patient was advised to continue taking her antibiotics. She will take with milk or other liquids or soft foods. She believes she can do this. She will continue taking her Vader as prescribed. She received 1 dose here. She is going to take half of her normal Klonopin dose. We discussed the risks, and overall the risk is fairly low. If she takes her medications as prescribed, she should not have any issues. Treatment Plan: As above Disposition: Discharge Impression: 1. Dental pain This note was generated with [employer] dictation software. It may contain incorrect words, spelling, and punctuation that were not noted in review of the chart prior to signing ED Disposition - Plan for ED Patient: Chief Complaint: Dental Referrals: Ran Dill MD [Primary Care Provider] -
--- NOTE | 2018-08-12 15:22 | ED.DEP ---
ED Disposition - Plan for ED Patient: Chief Complaint: Dental Instructions: ED Tooth Pain Referrals: Ran Dill MD [Primary Care Provider] -
[2018-08-12] MEDS: HYDROcodone Bitartrate/Apap 5/325 Tablet PO (15:23)
== END 2018-08-12 15:23 | disposition home or self-care (01) ==
LOC: ED 15:25
PROVIDERS: Emergency Provider Emergency Medicine; Family Provider Family Medicine; PCP Family Medicine
DX: K08.89 Other specified disorders of teeth and supporting structures (principal); E11.9 Type 2 diabetes mellitus without complications; I10 Essential (primary) hypertension; E78.00 Pure hypercholesterolemia, unspecified; F32.9 Major depressive disorder, single episode, unspecified; Z87.19 Personal history of other diseases of the digestive system; Z86.73 Personal history of transient ischemic attack (TIA), and cerebral infarction without residual deficits; Z79.02 Long term (current) use of antithrombotics/antiplatelets; Z79.84 Long term (current) use of oral hypoglycemic drugs; Z79.899 Other long term (current) drug therapy; Z72.0 Tobacco use
CPT/HCPCS: 99283

== ENCOUNTER 2018-12-24 23:52 | Emergency (ER) | payer MEDICAID, SELFPAY ==
[2018-12-24 23:52] VITALS: BP 134/93; PULSE 110; RESP 15; TEMP 36.6; O2SAT 99; BMI 25.5
--- NOTE | 2018-12-25 00:14 | ED.VIS.GEN ---
History of Present Illness Chief Complaint: Complaint Informant: Patient - Presents with dysuria. She states that when she urinates she feels stinging and burning. It is been going on for couple days. She went to the [facility] today and had testing done including gonorrhea, chlamydia trichomonas. They did a speculum test and she stated they reported she has vaginal wall irritation and redness. She does have a history of a hysterectomy. Narrative: Presents with dysuria. She states that when she urinates she feels stinging and burning. It is been going on for couple days. She went to the [facility] today and had testing done including gonorrhea, chlamydia trichomonas. They did a speculum test and she stated they reported she has vaginal wall irritation and redness. She does have a history of a hysterectomy. Patient stated that they gave her clotrimazole cream and told her that her results would come back in a couple days. She did recently have unprotected sex a week ago with another man. She is unsure if she picked up a sexually transmitted disease. She stated she knows she has to wait for her results but is having burning when she urinates and wanted to get that checked out as he did not check a urine analysis. No fevers or chills. Denies any other symptoms. - Past Medical History (1) Alcoholic pancreatitis Status: Acute (2) History of right sided stroke Status: Acute (3) CHRONIC ALCOHOL USE DEPENDENCE Status: Chronic (4) Depression Status: Chronic (5) Diabetes mellitus type 2 in obese Status: Chronic (6) Dyslipidemia Status: Chronic Past Medical History - Allergies and Home Meds Allergies/Adverse Reactions: Allergies azithromycin Allergy (Verified 08/12/18 15:01) Rash doxycycline Allergy (Verified 08/12/18 15:01) Rash egg Allergy (Verified 08/12/18 15:01) Unknown Penicillins Allergy (Verified 08/12/18 15:01) Rash Primary Care Physician: Ran Dill MD [Primary Care Provider] - Prior records reviewed: Yes Surgical History: cholecystectomy, hysterectomy, tonsillectomy Smoking Status: Current every day smoker Alcohol: None Drugs: None - Family History Maternal Family History: Reports: No pertinent history Review of Systems General: Denies: Chills, Fever, Sweats Eyes: Denies: Visual changes - bilaterally, Diplopia ENT: Denies: Rhinorrhea, Sore throat Cardiovascular: Denies: Chest pain, Palpitations Respiratory: Denies: Dyspnea, Cough, Dyspnea on exertion Gastrointestinal: Denies: Abdominal pain, Nausea, Vomiting, Diarrhea, Melena, Hematochezia Genitourinary: Reports: Dysuria, Frequency. Denies: Hematuria Musculoskeletal: Denies: Back pain, Extremity Pain Skin: Denies: Rash, Wounds Neurological: Denies: Headache, Weakness, Numbness Physical Exam Vital Signs/Narrative: Vital Signs Temp Pulse Resp BP Pulse Ox 12/24/18 23:52 97.8 F 110 H 15 134/93 H 99 General: Well nourished, Well developed, No Acute Distress Head: Normocephalic, Atraumatic Eyes: Perrl, EOMI ENT: Moist mucous membranes, No rhinorrhea Neck: Supple, Nontender Cardiovascular: Regular rate, Regular rhythm, No murmurs Respiratory: No distress, CTA bilaterally, Chest nontender Abdomen: Soft, Nontender, Nondistended, Normal bowel sounds Back: Nontender, Normal Inspection Extremities: Nontender, No edema Skin: Normal color, No rash Neurological: Alert, Oriented x3, Cranial nerves II-XII grossly intact, Normal Strength, Normal Sensation Psychological: Normal affect, Normal Mood Diagnostic/Tx/Re-eval - Medical Decision Making Pelvic exam deferred secondary to [facility] Urine analysis obtained patient's urinalysis shows white blood cells but no bacteria. I think this is likely from her infectious candidiasis which she is being treated for. I do not think she needs emergent treatment for STD as they did testing today. They are going to follow-up with her tomorrow or the next day with the results. I feel she can wait for this. Given lidocaine jelly. She said she has a lot of labial swelling. This is probably from candidiasis. She does not want another pelvic exam. She just had this done. I think this is reasonable. She will use ice on this area as well and follow-up as an outpatient and return if she worsens. ED Disposition - Plan for ED Patient: Disposition: [place] [facility] Diagnosis: Vaginal burning Instructions: Vaginal Infection: Yeast (Candidiasis) Referrals: Ran Dill MD [Primary Care Provider] -
--- NOTE | 2018-12-25 00:18 | ED.DCSUM_ITS ---
History of Present Illness Chief Complaint: Complaint Informant: Patient - Presents with dysuria. She states that when she urinates she feels stinging and burning. It is been going on for couple days. She went to the [facility] today and had testing done including gonorrhea, chlamydia trichomonas. They did a speculum test and she stated they reported she has vaginal wall irritation and redness. She does have a history of a hysterectomy. Narrative: Presents with dysuria. She states that when she urinates she feels stinging and burning. It is been going on for couple days. She went to the [facility] today and had testing done including gonorrhea, chlamydia trichomonas. They did a speculum test and she stated they reported she has vaginal wall irritation and redness. She does have a history of a hysterectomy. Patient stated that they gave her clotrimazole cream and told her that her results would come back in a couple days. She did recently have unprotected sex a week ago with another man. She is unsure if she picked up a sexually transmitted d isease. She stated she knows she has to wait for her results but is having burning when she urinates and wanted to get that checked out as he did not check a urine analysis. No fevers or chills. Denies any other symptoms. - Past Medical History (1) Alcoholic pancreatitis Status: Acute (2) History of right sided stroke Status: Acute (3) CHRONIC ALCOHOL USE DEPENDENCE Status: Chronic (4) Depression Status: Chronic (5) Diabetes mellitus type 2 in obese Status: Chronic (6) Dyslipidemia Status: Chronic Past Medical History - Allergies and Home Meds Allergies/Adverse Reactions: Allergies azithromycin Allergy (Verified 08/12/18 15:01) Rash doxycycline Allergy (Verified 08/12/18 15:01) Rash egg Allergy (Verified 08/12/18 15:01) Unknown Penicillins Allergy (Verified 08/12/18 15:01) Rash Primary Care Physician: Ran Dill MD [Primary Care Provider] - Prior records reviewed: Yes Surgical History: cholecystectomy, hysterectomy, tonsillectomy Smoking Status: Current every day smoker Alcohol: None Drugs: None - Family History Maternal Family History: Reports: No pertinent history Review of Systems General: Denies: Chills, Fever, Sweats Eyes: Denies: Visual changes - bilaterally, Diplopia ENT: Denies: Rhinorrhea, Sore throat Cardiovascular: Denies: Chest pain, Palpitations Respiratory: Denies: Dyspnea, Cough, Dyspnea on exertion Gastrointestinal: Denies: Abdominal pain, Nausea, Vomiting, Diarrhea, Melena, Hematochezia Genitourinary: Reports: Dysuria, Frequency. Denies: Hematuria Musculoskeletal: Denies: Back pain, Extremity Pain Skin: Denies: Rash, Wounds Neurological: Denies: Headache, Weakness, Numbness Physical Exam Vital Signs/Narrative: Vital Signs Temp Pulse Resp BP Pulse Ox 12/24/18 23:52 97.8 F 110 H 15 134/93 H 99 General: Well nourished, Well developed, No Acute Distress Head: Normocephalic, Atraumatic Eyes: Perrl, EOMI ENT: Moist mucous membranes, No rhinorrhea Neck: Supple, Nontender Cardiovascular: Regular rate, Regular rhythm, No murmurs Respiratory: No distress, CTA bilaterally, Chest nontender Abdomen: Soft, Nontender, Nondistended, Normal bowel sounds Back: Nontender, Normal Inspection Extremities: Nontender, No edema Skin: Normal color, No rash Neurological: Alert, Oriented x3, Cranial nerves II-XII grossly intact, Normal Strength, Normal Sensation Psychological: Normal affect, Normal Mood Diagnostic/Tx/Re-eval - Medical Decision Making Pelvic exam deferred secondary to just [facility] Urine analysis obtained patient's urinalysis shows white blood cells but no bacteria. I think this is likely from her infectious candidiasis which she is being treated for. I do not think she needs emergent treatment for STD as they did testing today. They are going to follow-up with her tomorrow or the next day with the results. I feel she can wait for this. Given lidocaine jelly. She said she has a lot of labial swelling. This is probably from candidiasis. She does not want another pelvic exam. She just had this done. I think this is reasonable. She will use ice on this area as well and follow-up as an outpatient and return if she worsens. ED Disposition - Plan for ED Patient: Disposition: [place] [facility] Diagnosis: Vaginal burning Instructions: Vaginal Infection: Yeast (Candidiasis) Referrals: Ran Dill MD [Primary Care Provider] -
[2018-12-25 00:25] LABS: Bacteria 0 SEEN /hpf (None Seen); Mucous, Urine 0 SEEN /hpf (<or=2+)
[2018-12-25 00:27] LABS: Color, Urine Yellow (Yellow); Glucose, Dipstick 100 mg/dl (Normal); Ketone-Dipstick 5 mg/dl (Negative); Leukocyte Esterase-Dipstick 500 /ul (Negative); Nitrite-Dipstick Negative (Negative); Occult Blood-Urine 250 /ul (Negative); Protein-Dipstick 30 mg/dl (Negative); Urine Bilirubin Dipstick Negative (Negative); Urine Clarity Cloudy (Clear); Urine Urobilinogen 1 mg/dl (Normal)
[2018-12-25 00:35] LABS: Red Blood Cells-Urine 5-10 SEEN /hpf (0-5); Squamous Epithelial Cells - UA 0-5 SEEN /hpf (5-10); White Blood Cells >100 SEEN /hpf (0-5)
[2018-12-25 00:58] VITALS: BP 135/85; PULSE 87; RESP 16; O2SAT 98
== END 2018-12-25 01:15 | disposition home or self-care (01) ==
PROVIDERS: Emergency Provider Emergency Medicine; Family Provider Family Medicine; PCP Family Medicine
DX: N89.8 Other specified noninflammatory disorders of vagina (principal); K85.20 Alcohol induced acute pancreatitis without necrosis or infection; E11.9 Type 2 diabetes mellitus without complications; E78.5 Hyperlipidemia, unspecified; F32.9 Major depressive disorder, single episode, unspecified; E66.9 Obesity, unspecified; F10.20 Alcohol dependence, uncomplicated; F17.200 Nicotine dependence, unspecified, uncomplicated; Z88.0 Allergy status to penicillin; Z88.1 Allergy status to other antibiotic agents; Z91.012 Allergy to eggs; Z79.84 Long term (current) use of oral hypoglycemic drugs; Z79.02 Long term (current) use of antithrombotics/antiplatelets; Z79.899 Other long term (current) drug therapy; Z86.73 Personal history of transient ischemic attack (TIA), and cerebral infarction without residual deficits; Z90.710 Acquired absence of both cervix and uterus
CPT/HCPCS: 81001; 99282

== ENCOUNTER 2019-04-09 08:59 | Outpatient (RCR) | payer MEDICAID, SELFPAY ==
--- NOTE | 2019-04-09 09:00 | BH.SGPN.GN ---
Behaviors/Verbalizations/Mental Status: [] Eye contact is good. Motor activity is appropriate. Appearance is casual. Speech is Appropriate. Mood is anxious. Affect is congruent. Thoughts are linear and logical. No evidence of psychosis. Reviewed daily check in sheet and no reports of suicidal ideations or intent. Client Response/Progress/Benefit: [] Pt participated at times. This was pt's first day in IOP. Shared with the group that she had completed IOP in the past however recent trigger has exacerbated symptoms and her and her therapist thought that returning would be beneficial. Reports that last IOP was very helpful and she hopes it will help with current depression. No progress noted. Group welcomed her and provided support which was beneficial. Will continue in IOP to maintain safety, prevent decompensation, and improve functioning. Narrative Note: []
--- NOTE | 2019-04-09 10:10 | BH.SGPN.GN ---
Behaviors/Verbalizations/Mental Status: [] Eye contact is good. Motor activity is appropriate. Appearance is disheveled. Speech is Appropriate. Mood is depressed. Affect is flat. Thoughts are linear and logical. No evidence of psychosis. Client Response/Progress/Benefit: [] Pt was an active participant in activity however limited participation in group discussion. Did not contribute to discussion on quote of the day. Group worked together to come up with common negative forces in thief lives which can hold them back from growth. There included; toxic relationships, negative thoughts, cognitive distortions, fear of failure, anger, and unhealthy coping skills (alcohol, sleeping to escape, isolation). Group then worked together to identify common positive forces which help us grow. Theses included; Healthy coping skills, positive support, self-care, patience, realistic and positive thinking, and following treatment suggestions. Pt was attentive during psychoeducation on the importance of utilizing many aspects of positive forces to help one grow. Benefited from group with increased insight and awareness on the impact of negative and positive forces on mental wellness. Narrative Note: []
--- NOTE | 2019-04-09 11:10 | BH.SGPN.GN ---
Behaviors/Verbalizations/Mental Status: []Client alert and oriented, casually dressed and groomed. Eye contact fair. Motor activity appropriate. Speech within normal limits. Affect flat and mood depressed. Thoughts linear, logical, no signs of hallucinations or delusions. Client Response/Progress/Benefit: []Client provided input at times during discussion, listened attentively to peers. Client completed worksheet identifying her positive and negative forces in life. Client identified positive forces that aid in progressing toward mental health goals include: children, therapist, going to the library, journaling, and listening to music. Client indicated negative forces that prevent progress include: not taking time for self-care, anxiety and depression, lack of communication, triggers, and not setting boundaries. Client reported currently her negative forces are impacting her the most. Client stated not setting boundaries and anxieties are the negative forces that are keeping her stuck. Client seemed to benefit from increased awareness of personal positive and negative forces in life and impact they have on mental health and wellness. Client to continue IOP level of care to decrease anxiety, identify and challenge distorted thought patterns and prevent decompensation. Narrative Note: []
--- NOTE | 2019-04-09 12:30 | BH.MTP ---
Master Treatment Plan - Patient Information Program Physician:: Dr. Perlita Lovell Primary Therapist:: Shahana Garg - Psychiatric Diagnoses Psychiatric Diagnoses:: Bipolar 2 disorder (most recent episode depression severe without psychosis), PTSD Diagnosis Code(s):: F31.81 - Estimated LOS Estimated LOS (in weeks):: 6 Problem/Goal #1 - Problem/Goal #1 Stated Goal:: Client will reduce depression, feelings of hopelessness, irritability, and suicidal ideation through Intensive Outpatient program as evidenced by decrease in depression scales on the DSM 5 cross-cutting scales. Description of Barriers: Reports that 's health is poor and she is primary means of transportation for her son. Functional Impact: Pt notes that depression has impacted her daily functioning causing increase in isolation, SI, and decreasing functioning in ADLs and completeing household responsibilities. - Objectives Objective #1 Stated Objective: Client will work with therapist to develop a ?crisis plan? which includes emergency telephone numbers, 3-4 coping strategies for SI, lists of supports, positive aspects of life, and motivations. Interventions: Therapist will provide patient with safety plan worksheet and work with pt. to develop individualized plan. Discharge Criteria: will complete safety plan. Target Date: 05/24/19 Review Date: 05/10/19 Objective #2 Stated Objective: Client will identify 2-3 triggers and 2-3 coping skills to reduce her depressive symptoms that lead to suicidal thinking. Interventions: Through individual and group counseling will help pt identify her triggers and teach client various coping strategies to effectively cope with depressive symptoms. Discharge Criteria: Client will have achieved this goal when can identify at least 2 triggers, verbalize two healthy coping strategies and defeat suicidal ideation. Target Date: 05/24/19 Review Date: 05/10/19 Problem/Goal #2 - Problem/Goal #2 Stated Goal:: Stabilize anxiety level while increasing ability to function and decreasing ruminative thoughts on a daily basis through Intensive Outpatient Program as evidenced by decrease in anxiety scales on the DSM-5 cross-cutting scales. Description of Barriers: Reports that 's health is poor and she is primary means of transportation for her son. Functional Impact: Rumination, worry, and guilt are causing significant decompensation impacting daily functioning. - Objectives Objective #1 Stated Objective: Client will learn and implement 2-3 calming skills to reduce overall anxiety and manage anxiety symptoms. Interventions: Through individual and group counseling pt will learn calming/relaxation skills with the goal to utilize these skills on a consistent basis Discharge Criteria: Client will have achieved this goal when can verbalize at least 2 calming skills and implement those skills on a consistent basis Target Date: 05/24/19 Review Date: 05/10/19
--- NOTE | 2019-04-09 12:35 | BH.COMM ---
Communication Note - Communication with Client Communication Note: Met with pt briefly to discuss treatment plan goals. Pt therapist is on vacation today so this therapist agreed to begin treatment planning.
--- NOTE | 2019-04-09 12:45 | BH.COMM_ITS ---
Communication Note - Communication with Client Communication Note: Completed intake paperwork with patient. Used [place]- Suicide Severity Rating Screening (C-SSRS) tool to assess for lethality. Pt scored positive for wishing to be and having actual thoughts of suicide in the past month. Pt stated she had one day about two weeks ago in which she thought about suicide. Pt scored positive for having thought about overdosing as a method for suicide. Pt denied any suicidal intention and plan in the past month. Pt reported she has attempted suicide one time in her life about 6-8 years ago via overdose. Pt reported she does not feeling currently suicidal and feels able to maintain safety. Pt aggreeable to call 911 or go to nearest emergency room if feeling unsafe. Per the CSSR-S pt is at moderate risk for suicide. Pt will be continually mointored throughout program. Pt is future focused. Protective factors include her , children, and grandchildren. Does not appear to be at imminent risk to harm self or others.
== END 2019-04-13 23:59 ==
LOC: BHIOP 08:59
PROVIDERS: Family Provider Family Medicine; PCP Family Medicine; Referring Provider Psychiatry & Neurology Psychiatry; Visit Provider Psychiatry & Neurology Psychiatry
DX: F31.81 Bipolar II disorder (principal); F43.10 Post-traumatic stress disorder, unspecified
CPT/HCPCS: H2020

== ENCOUNTER 2019-04-14 23:25 | Emergency (ER) | payer MEDICAID, SELFPAY ==
[2019-04-14 23:25] VITALS: BP 149/85; PULSE 94; RESP 15; TEMP 36.7; O2SAT 98; BMI 24.2
--- NOTE | 2019-04-15 00:06 | ED.VIS.GEN ---
History of Present Illness Chief Complaint: Headache Informant: Patient Narrative: She stated that she had the gradual onset of a frontal achy throbbing headache for the last 6 hours. She used Aleve x1 with minimal relief. Associated with photophobia and nausea. Denies any visual disturbance. She states she has a history of migraines. She gets therapy every 3 months through the IV to help with these. She is been getting them since a teenager. There was no thunderclap headache. This is similar to previous migraines. Current severity is moderate. Worse by the light. She has never seen a migraine specialist. She has has had remote imaging. - Past Medical History (1) Alcoholic pancreatitis Status: Acute (2) History of right sided stroke Status: Acute (3) CHRONIC ALCOHOL USE DEPENDENCE Status: Chronic (4) Depression Status: Chronic (5) Diabetes mellitus type 2 in obese Status: Chronic (6) Dyslipidemia Status: Chronic Past Medical History - Allergies and Home Meds Allergies/Adverse Reactions: Allergies azithromycin Allergy (Verified 04/14/19 23:29) Rash doxycycline Allergy (Verified 04/14/19 23:29) Rash egg Allergy (Verified 04/14/19 23:29) Unknown Penicillins Allergy (Verified 04/14/19 23:29) Rash Primary Care Physician: Ran Dill MD [Primary Care Provider] - Prior records reviewed: Yes Past Medical History: - - See problem list Surgical History: cholecystectomy, hysterectomy, tonsillectomy Lives: With Family Smoking Status: Current every day smoker Alcohol: None Drugs: None - Family History Maternal Family History: Reports: No pertinent history Review of Systems General: Denies: Chills, Fever, Sweats Eyes: Denies: Visual changes - bilaterally, Diplopia ENT: Denies: Rhinorrhea, Sore throat Cardiovascular: Denies: Chest pain, Palpitations Respiratory: Denies: Dyspnea, Cough, Dyspnea on exertion Gastrointestinal: Reports: Nausea. Denies: Abdominal pain, Vomiting, Diarrhea, Melena, Hematochezia Genitourinary: Denies: Dysuria, Hematuria, Frequency Musculoskeletal: Denies: Back pain, Extremity Pain Skin: Denies: Rash, Wounds Neurological: Reports: Headache. Denies: Weakness, Numbness Physical Exam Vital Signs/Narrative: Vital Signs Temp Pulse Resp BP Pulse Ox 04/14/19 23:25 98.1 F 94 15 149/85 H 98 General: Well nourished, Well developed, No Acute Distress Head: Normocephalic, Atraumatic Eyes: Perrl, EOMI ENT: Moist mucous membranes, No rhinorrhea Neck: Supple, Nontender Cardiovascular: Regular rate, Regular rhythm, No murmurs Respiratory: No distress, CTA bilaterally, Chest nontender Abdomen: Soft, Nontender, Nondistended, Normal bowel sounds Back: Nontender, Normal Inspection Extremities: Nontender, No edema Skin: Normal color, No rash Neurological: Alert, Oriented x3, Cranial nerves II-XII grossly intact, Normal Strength, Normal Sensation Psychological: Normal affect, Normal Mood Diagnostic/Tx/Re-eval - Medical Decision Making IV established and given IV saline,, Benadryl, Compazine, Toradol. On reevaluation the patient's symptoms are almost completely resolved. I do not feel she needs a CT of her head or other imaging. I think she has a recurrent migraine. She would like to be discharged. She will follow-up as an outpatient. She will return if she worsens but her headache is almost completely gone. ED Disposition - Plan for ED Patient: Disposition: Psychiatric Hospital or Unit Diagnosis: Migraine headache Instructions: ED, Migraine (Classical) Referrals: Ran Dill MD [Primary Care Provider] -
[2019-04-15] MEDS: proCHLORPERazine 10 MG/2 ML Vial IV (00:18)
[2019-04-15] MEDS: DiphenhydrAMINE 50 MG/ML Syringe 25 MG IV (00:18)
[2019-04-15] MEDS: 0.9% Normal Saline 1,000 ML 999 ML IV (00:18)
[2019-04-15] MEDS: Ketorolac 30 MG/ML Syringe IV (00:18)
[2019-04-15 01:12] VITALS: BP 117/58; PULSE 82; RESP 17; O2SAT 96
== END 2019-04-15 01:16 | disposition home or self-care (01) ==
PROVIDERS: Emergency Provider Emergency Medicine; Family Provider Family Medicine; PCP Family Medicine
DX: G43.909 Migraine, unspecified, not intractable, without status migrainosus (principal); K85.20 Alcohol induced acute pancreatitis without necrosis or infection; E11.9 Type 2 diabetes mellitus without complications; E78.5 Hyperlipidemia, unspecified; F32.9 Major depressive disorder, single episode, unspecified; E66.9 Obesity, unspecified; F17.200 Nicotine dependence, unspecified, uncomplicated; Z79.84 Long term (current) use of oral hypoglycemic drugs; Z79.02 Long term (current) use of antithrombotics/antiplatelets; Z79.899 Other long term (current) drug therapy; Z88.0 Allergy status to penicillin; Z90.710 Acquired absence of both cervix and uterus; Z90.49 Acquired absence of other specified parts of digestive tract; Z86.73 Personal history of transient ischemic attack (TIA), and cerebral infarction without residual deficits
CPT/HCPCS: 96361; 96374; 96375; 99284; J7030; A4216

== ENCOUNTER 2019-04-17 09:00 | Outpatient (RCR) | payer MEDICAID, SELFPAY ==
--- NOTE | 2019-04-17 09:00 | BH.SGPN.GN ---
Behaviors/Verbalizations/Mental Status: [] Eye contact is good. Motor activity is appropriate. Appearance is casual. Speech is Appropriate. Mood is depressed. Affect is flat. Thoughts are linear and logical. No evidence of psychosis. Reviewed daily check in sheet and no reports of suicidal ideations or intent. Client Response/Progress/Benefit: [] Pt participated at times. Shared with the group that her attendance in IOP has been inconsistent mainly due to migraines which had caused her to go to the ER. Migraines exacerbate MH symptoms and often lead to avoidance and isolation. Hx of stroke as well. Shared some struggles with her relationship and her 's medical issues. Benefited from group support and encouragment. Will continue in IOP to maintain safety, improve daily functioning, and prevent decompensation. Narrative Note: []
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
--- NOTE | 2019-04-17 12:40 | BH.DR.ITP ---
Initial Treatment Plan - Patient Information Visit Information: ADMISSION DATE: EXPECTED LOS: 4-6 weeks - Problems/Symptoms Problem #1:: depression Symptom:: sadness, suicidal thoughts, irritable Problem #2:: anxiety Symptom:: feeling on edge, rumination, worry
--- NOTE | 2019-04-25 08:16 | BH.COMM ---
Communication Note - Communication with Client Communication Note: Client called and left a message for this therapist. Client canceled her scheduled IOP group and individual sessions today. Client has not been able to meet with her individual therapist due to cancelations. Client reports plan to attend tomorrow, 04/26/19 and she will meet with her individual then.
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
== END 2019-04-26 09:00 | disposition home or self-care (01) ==
LOC: BHIOP 09:00
PROVIDERS: Family Provider Family Medicine; PCP Family Medicine; Referring Provider Psychiatry & Neurology Psychiatry; Visit Provider Psychiatry & Neurology Psychiatry
DX: F31.81 Bipolar II disorder (principal); F43.10 Post-traumatic stress disorder, unspecified; Z72.89 Other problems related to lifestyle; Z72.0 Tobacco use
CPT/HCPCS: 90792; H2012

== ENCOUNTER 2019-04-28 21:05 | Emergency (ER) | payer MEDICAID, SELFPAY ==
[2019-04-28 21:07] VITALS: BP 138/86; PULSE 94; RESP 16; TEMP 36.9; O2SAT 97; BMI 25.4
[2019-04-28 21:16] LABS: Bedside Glucose 195 mg/dL (70-110)
[2019-04-28 21:28] VITALS: BP 158/91; PULSE 87; RESP 22; O2SAT 97
[2019-04-28 21:30] VITALS: BP 135/95; PULSE 91; RESP 16; O2SAT 97
[2019-04-28 21:32] VITALS: BMI 25.4
--- NOTE | 2019-04-28 21:37 | ED.RN ---
ANXIOUS MOOD PER PT AND SLURRED SPEECH PER
[2019-04-28 21:47] LABS: Absolute Lymphocyte Count 3.91 X10^3/uL (0.83-4.51); Absolute Neutrophil Count 5.7 X10^3/uL (2.0-7.7); Basophil# 0.08 X10^3/uL; Basophil% 0.7 % (0-1); Eosinophil# 0.39 X10^3/uL; Eosinophils% 3.6 % (0-5); Hematocrit 45.1 % (37-47); Hemoglobin 15.1 g/dL (12.0-15.0); Lymphocyte # 3.91 X10^3/ul (4.0); Lymphocyte % 36.4 % (19-41); Mean Corp Hgb Conc 33.5 g/dL (32-36); Mean Corpuscular Hgb 31.4 pg (27.0-32.0); Mean Corpuscular Volume 93.8 fL (81-99); Mean Platelet Vol. 11.8 fl (6.2-12.0); Monocyte# 0.66 X10^3/uL; Monocyte% 6.1 % (0-10); NRBC Flagged by Analyzer 0 % (0-5); Neutrophil # 5.67 X10^3/uL (2.7-7.7); Neutrophil % 52.9 % (47-70); Platelet Count 190 K/mm3 (150-450); RBC Distribution Width CV 11.7 % (11.6-14.6); RBC Distribution Width SD 40.4 fl (35.1-43.9); Red Blood Count 4.81 M/mm3 (4.2-5.4); White Blood Count 10.7 K/mm3 (4.4-11.0)
--- NOTE | 2019-04-28 21:50 | ED.VIS.GEN ---
History of Present Illness Chief Complaint: Neuro S/Sx Informant: Patient, Significant Other Onset: Today, Hours Context: Sudden Onset Timing: Continuous Quality: Total body numbness and tingling Location: Entire body Current Severity: Moderate Maximum Severity: Severe Worsened by: Nothing Relieved by: Nothing Associated Symptoms: Anxiousness Narrative: Patient is a 48-year-old woman with history of diabetes, hypertension, CVA who presents with numbness from the top of her head to her toes. This started 2 hours prior to presentation. She does not complain of anxiety and nothing made her anxious. She denies headache. She denies double vision, blurred vision loss vision. She denies decreased hearing, ringing or ears or pain. She denies rhinorrhea, congestion postnasal drainage. She denies sore throat. Denies trouble speech or swallowing. She denies cardiac or respiratory symptoms. She denies nausea, vomiting diarrhea. She denies dysuria, frequency, urgency or hematuria. She states she checked her blood sugar recently and was approximate 190. Prior similar symptoms: No Recent Illness/Hospitalization: No - Past Medical History (1) Alcoholic pancreatitis Status: Acute (2) History of right sided stroke Status: Acute (3) Depression Status: Chronic (4) Diabetes mellitus type 2 in obese Status: Chronic (5) Dyslipidemia Status: Chronic Past Medical History - Allergies and Home Meds Allergies/Adverse Reactions: Allergies azithromycin Allergy (Verified 04/28/19 21:29) Rash doxycycline Allergy (Verified 04/28/19 21:29) Rash egg Allergy (Verified 04/28/19 21:29) Unknown Penicillins Allergy (Verified 04/28/19 21:29) Rash Primary Care Physician: Ran Dill MD [Primary Care Provider] - Prior records reviewed: Yes Surgical History: cholecystectomy, hysterectomy, tonsillectomy Lives: Spouse/ Significant Other Smoking Status: Current every day smoker Alcohol: None Drugs: None - Family History Maternal Family History: Reports: No pertinent history Review of Systems General: Denies: Chills, Fever, Sweats Eyes: Denies: Visual changes - bilaterally, Blurred Vision - bilaterally, Diplopia ENT: Denies: Bilateral ear pain, Rhinorrhea, Sore throat Cardiovascular: Denies: Chest pain, Palpitations, Heart racing Respiratory: Denies: Dyspnea, Cough, Dyspnea on exertion Gastrointestinal: Denies: Abdominal pain, Nausea, Vomiting, Diarrhea, Melena, Hematochezia Genitourinary: Denies: Dysuria, Hematuria, Frequency Musculoskeletal: Denies: Myalgias, Arthralgias, Neck pain, Back pain, Swelling, Extremity Pain, -, - Skin: Denies: Rash, Wounds Neurological: Reports: Parasthesia, Numbness. Denies: Headache, Weakness Psych: Reports: Depression, Anxiety Hematologic: Denies: Easy bruising, Easy bleeding Allergy: Denies: Uticaria, Swelling of the mouth Physical Exam Vital Signs/Narrative: Vital Signs Temp Pulse Resp BP Pulse Ox 04/28/19 21:30 91 16 135/95 H 97 04/28/19 21:28 87 22 H 158/91 H 97 04/28/19 21:07 98.5 F 94 16 138/86 H 97 Inital Vital Signs reviewed: Yes - Pressure is slightly elevated General: Well nourished, Well developed, No Acute Distress Head: Normocephalic, Atraumatic Eyes: Perrl, EOMI. Negative for: Pale conjunctiva, Scleral icterus ENT: Moist mucous membranes, No rhinorrhea, TM's clear Neck: Supple, Nontender, No lymphadenopathy, No JVD Cardiovascular: Regular rate, Regular rhythm, No murmurs, Normal S1, Normal S2 Respiratory: No distress, CTA bilaterally, Chest nontender Abdomen: Soft, Nontender, Nondistended, Normal bowel sounds Back: Nontender, Normal Inspection. Negative for: CVA tenderness Extremities: Nontender, No edema, - - Distal pulses upper and lower extremity are normal.. Negative for: Calf Tenderness Skin: Normal color, No rash, No Trauma. Negative for: Cyanosis, Diaphoresis, Jaundice Neurological: Alert, Oriented x3, Cranial nerves II-XII grossly intact, Normal Strength, Normal Sensation, Normal DTR - There is no clonus or Babinski sign noted., Normal Gait, - - Cerebellar testing is normal. Psychological: Depressed, - - Poverty of speech. Slow psychomotor skills. Diagnostic/Tx/Re-eval Laboratory Results 04/28/19 04/28/19 04/28/19 21:10 21:23 21:23 WBC 10.7 RBC 4.81 Hgb 15.1 H Hct 45.1 MCV 93.8 MCH 31.4 MCHC 33.5 RDW Std Deviation 40.4 RDW Coeff of Arlene 11.7 Plt Count 190 MPV 11.8 Immature Gran % (Auto) 0.300 Neut % (Auto) 52.9 Lymph % (Auto) 36.4 [place] % (Auto) 6.1 Eos % (Auto) 3.6 Baso % (Auto) 0.7 Absolute Neuts (auto) 5.7 Absolute Lymphs (auto) 3.91 Nucleated RBC % 0 Sodium 140 Potassium 3.9 Chloride 105 Carbon Dioxide 29.0 Anion Gap 6 BUN 14 Creatinine 1.01 Estim Creat Clear Calc 64.46 Est GFR (MDRD) Af Amer 75 Est GFR (MDRD) Non-Af 62 BUN/Creatinine Ratio 13.9 Glucose 179 H Calcium 9.1 Total Bilirubin 0.50 AST 22 ALT 44 Alkaline Phosphatase 91 Total Protein 8.4 H Albumin 4.0 Globulin 4.4 H Albumin/Globulin Ratio 0.9 Urine Color Urine Clarity Urine pH Ur Specific [place] Urine Protein Urine Glucose (UA) Urine Ketones Urine Occult Blood Urine Nitrite Urine Bilirubin Urine Urobilinogen Ur Leukocyte Esterase Urine RBC Urine WBC Ur Squamous Epith Cells Amorphous Sediment Urine Bacteria Urine Mucus POC Glucose 195 H 04/28/19 22:35 WBC RBC Hgb Hct MCV MCH MCHC RDW Std Deviation RDW Coeff of Arlene Plt Count MPV Immature Gran % (Auto) Neut % (Auto) Lymph % (Auto) [place] % (Auto) Eos % (Auto) Baso % (Auto) Absolute Neuts (auto) Absolute Lymphs (auto) Nucleated RBC % Sodium Potassium Chloride Carbon Dioxide Anion Gap BUN Creatinine Estim Creat Clear Calc Est GFR (MDRD) Af Amer Est GFR (MDRD) Non-Af BUN/Creatinine Ratio Glucose Calcium Total Bilirubin AST ALT Alkaline Phosphatase Total Protein Albumin Globulin Albumin/Globulin Ratio Urine Color Yellow Urine Clarity Sl. Cloudy Urine pH 7.0 Ur Specific [place] 1.010 Urine Protein Negative Urine Glucose (UA) Normal Urine Ketones Negative Urine Occult Blood 50 H Urine Nitrite Negative Urine Bilirubin Negative Urine Urobilinogen Normal Ur Leukocyte Esterase 25 H Urine RBC 0-5 SEEN Urine WBC 0-5 SEEN Ur Squamous Epith Cells 10-25 SEEN Amorphous Sediment 1+ PHOS Urine Bacteria RARE Urine Mucus 0 SEEN POC Glucose CBC and conference of metabolic panel unremarkable. Urinalysis is consistent with a contaminated specimen. Blood sugar is elevated 195. This would not explain patient's symptoms. - EKG Initial EKG Interpretation: Sinus Rhythm - Normal sinus rhythm with a ventricular rate of 78. NM interval is 130 ms. QRS durations 84 ms. QT durations 388 ms. There is minimal no ossific changes noted. This is unchanged from July 01, 2013. Prior: Unchanged - Medical Decision Making We will obtain basic metabolic panel and CBC to assess for metabolic causes of her total body numbness. She has a nonfocal neurologic exam and reason CT of the head was not obtained. Patient's work-up is unremarkable will discharge to home to follow-up with her primary care physician. ED Disposition - Plan for ED Patient: Disposition: Home or Assisted Living Diagnosis: Paresthesia of skin Instructions: Paraesthesias Referrals: Ran Dill MD [Primary Care Provider] - As Needed
--- NOTE | 2019-04-28 21:54 | EKG12_ITS ---
Test Reason : CP Blood Pressure : / mmHG Vent. Rate : 078 BPM Atrial Rate : 078 BPM P-R Int : 132 ms QRS Dur : 084 ms QT Int : 388 ms P-R-T Axes : 015 032 065 degrees QTc Int : 442 ms Normal sinus rhythm Nonspecific ST abnormality Abnormal ECG Confirmed by ANA PETERSEN, CLARY ([id number]), technical writer and editor AMANDA DAVILA ([id number]) on 04/29/2019 3:01:19 PM Referred By: QUENTIN Confirmed By:CLARY PEREZ MD
[2019-04-28 21:58] LABS: ALB/GLOB Ratio 0.9 RATIO (0.9-2.4); AST(SGOT) 22 U/L (15-37); Alanine Aminotransfer ALT/SGPT 44 U/L (13-56); Alkaline Phosphatase 91 U/L (45-117); Anion Gap 6 (5-15); BUN 14 mg/dL (7-18); BUN/Creat Ratio 13.9 RATIO (10-20); Calcium,Total 9.1 mg/dL (8.5-10.1); Chloride 105 mmol/L (98-107); Creatinine, Serum 1.01 mg/dL (0.55-1.02); EST Glomerular Filtration Rate 62 mL/min (>60); Est Glom Filt Rate - Afr Amer 75 mL/min (>60); Estimated Creatinine Clearance 64.46 ml/min; Globulin 4.4 g/dL (2.2-4.2); Glucose 179 mg/dL (74-106); Potassium 3.9 mmol/L (3.5-5.1); Protein, Total 8.4 g/dL (6.4-8.2); Sodium Level 140 mmol/L (136-145)
[2019-04-28 22:19] VITALS: BP 140/88; PULSE 92; RESP 21; O2SAT 96
[2019-04-28 23:02] LABS: Mucous, Urine 0 SEEN /hpf (<or=2+)
[2019-04-28 23:09] LABS: Color, Urine Yellow (Yellow); Glucose, Dipstick Normal (Normal); Ketone-Dipstick Negative (Negative); Leukocyte Esterase-Dipstick 25 /ul (Negative); Nitrite-Dipstick Negative (Negative); Occult Blood-Urine 50 /ul (Negative); Protein-Dipstick Negative (Negative); Urine Bilirubin Dipstick Negative (Negative); Urine Clarity Sl. Cloudy (Clear); Urine Urobilinogen Normal (Normal)
[2019-04-28 23:22] LABS: Amorphous Sediment 1+ PHOS; Bacteria RARE /hpf (None Seen); Red Blood Cells-Urine 0-5 SEEN /hpf (0-5); Squamous Epithelial Cells - UA 10-25 SEEN /hpf (5-10); White Blood Cells 0-5 SEEN /hpf (0-5)
[2019-04-28 23:39] VITALS: BP 128/98; PULSE 86; RESP 20; O2SAT 99
[2019-04-28 23:47] VITALS: PULSE 86; RESP 20; O2SAT 99
== END 2019-04-28 23:48 | disposition home or self-care (01) ==
PROVIDERS: Emergency Provider Emergency Medicine; Family Provider Family Medicine; PCP Family Medicine
DX: R20.2 Paresthesia of skin (principal); R20.0 Anesthesia of skin; E11.65 Type 2 diabetes mellitus with hyperglycemia; I10 Essential (primary) hypertension; E78.5 Hyperlipidemia, unspecified; F32.9 Major depressive disorder, single episode, unspecified; E66.9 Obesity, unspecified; F17.200 Nicotine dependence, unspecified, uncomplicated; Z79.84 Long term (current) use of oral hypoglycemic drugs; Z79.02 Long term (current) use of antithrombotics/antiplatelets; Z79.899 Other long term (current) drug therapy; Z88.0 Allergy status to penicillin; Z90.710 Acquired absence of both cervix and uterus; Z90.49 Acquired absence of other specified parts of digestive tract; Z86.73 Personal history of transient ischemic attack (TIA), and cerebral infarction without residual deficits
CPT/HCPCS: 80053; 81001; 82962; 85025; 93005; 99285

== ENCOUNTER 2019-09-07 17:32 | Emergency (ER) | payer MEDICAID, SELFPAY ==
[2019-09-07 17:32] VITALS: BP 138/91; PULSE 85; RESP 16; TEMP 36.4; O2SAT 98; BMI 25.3
[2019-09-07 17:45] LABS: Bedside Glucose 175 mg/dL (70-110)
--- NOTE | 2019-09-07 17:58 | ED.VIS.GEN ---
History of Present Illness Chief Complaint: Nausea/Vomiting Informant: Patient Onset: Weeks Maximum Severity: Mild Narrative: Patient complains of over a 1 week history of copious watery diarrhea she has history of poorly controlled diabetes her blood sugars running about 1 50-1 80 indicates she is able to take liquid foods soft foods but not any solid foods indicates history of reflux cholecystectomy, was scheduled to see GI for reflux did not follow-up 2 years ago she had C. difficile related to unspecified need for antibiotics that resolved, she has had no exposure to tainted food or sick individuals no antibiotics her blood sugars are running about 180 Past Medical History - Allergies and Home Meds Allergies/Adverse Reactions: Allergies azithromycin Allergy (Verified 04/28/19 21:29) Rash doxycycline Allergy (Verified 04/28/19 21:29) Rash egg Allergy (Verified 04/28/19 21:29) Unknown Penicillins Allergy (Verified 04/28/19 21:29) Rash Primary Care Physician: Ran Dill MD [Primary Care Provider] - Past Medical History: - Surgical History: cholecystectomy, hysterectomy, tonsillectomy Smoking Status: Current every day smoker - Family History Maternal Family History: Reports: No pertinent history Review of Systems ROS: - Above General: Denies: Chills, Fever, Sweats Eyes: Denies: Visual changes - bilaterally, Diplopia ENT: Denies: Rhinorrhea, Sore throat Cardiovascular: Denies: Chest pain, Palpitations Respiratory: Denies: Dyspnea, Cough, Dyspnea on exertion Gastrointestinal: Reports: Diarrhea. Denies: Abdominal pain, Nausea, Vomiting, Melena, Hematochezia Genitourinary: Denies: Dysuria, Hematuria, Frequency Musculoskeletal: Denies: Back pain, Extremity Pain Skin: Denies: Rash, Wounds Neurological: Denies: Headache, Weakness, Numbness Physical Exam Vital Signs/Narrative: Vital Signs Temp Pulse Resp BP Pulse Ox 09/07/19 17:32 97.6 F L 85 16 138/91 H 98 General: Well nourished, Well developed, No Acute Distress Head: Normocephalic, Atraumatic Eyes: Perrl, EOMI ENT: Moist mucous membranes, No rhinorrhea Neck: Supple, Nontender Cardiovascular: Regular rate, Regular rhythm, No murmurs Respiratory: No distress, CTA bilaterally, Chest nontender Abdomen: Soft, Nontender, Nondistended, Normal bowel sounds Back: Nontender, Normal Inspection Extremities: Nontender, No edema Skin: Normal color, No rash Neurological: Alert, Oriented x3, Cranial nerves II-XII grossly intact, Normal Strength, Normal Sensation Psychological: Normal affect, Normal Mood Diagnostic/Tx/Re-eval - Medical Decision Making Currently her vital signs are unremarkable abdomen soft and nontender she indicates she is having no blood per rectum no history of colitis diverticulitis, the C. difficile was 2 years ago she is able to hydrate and feed herself using soft foods at this time screening labs were obtained advance to provide stool sample for analysis and she states she cannot void stool even though she indicates her chief complaint is copious diarrhea The patient screening labs are all generally unremarkable no signs of DKA or other acute abnormality she is unable to provide stool sample as of now, at this time given all the above she is comfortable discharge home continue her liquid diet Zofran and to potentially following up with the GI attending she was scheduled to see before and return for change in symptoms when she can provide this C. difficile stool sample she should prevent that her outpatient providers for further analysis Home stable Final impression reported diarrhea diabetes history of C. difficile ED Disposition - Plan for ED Patient: Diagnosis: Diarrhea Instructions: FOOD POISONING or GASTROENTERITIS (6y-Adult), VOMITING AND DIARRHEA, Nonspecific (Adult) Referrals: Ran Dill MD [Primary Care Provider] -
[2019-09-07] MEDS: 0.9% Normal Saline 1,000 ML 1000 ML IV (18:24)
[2019-09-07] MEDS: Ondansetron 4 MG/2 ML Vial IV (18:25)
[2019-09-07] MEDS: morphine 8 MG/ML Syringe IV (18:25)
[2019-09-07 18:30] LABS: Absolute Lymphocyte Count 2.88 X10^3/uL (0.83-4.51); Absolute Neutrophil Count 4.2 X10^3/uL (2.0-7.7); Basophil# 0.07 X10^3/uL; Basophil% 0.9 % (0-1); Eosinophil# 0.25 X10^3/uL; Eosinophils% 3.2 % (0-5); Hematocrit 45.1 % (37-47); Hemoglobin 15.1 g/dL (12.0-15.0); Lymphocyte # 2.88 X10^3/ul (4.0); Lymphocyte % 37.4 % (19-41); Mean Corp Hgb Conc 33.5 g/dL (32-36); Mean Corpuscular Hgb 30.8 pg (27.0-32.0); Monocyte# 0.32 X10^3/uL; Monocyte% 4.2 % (0-10); NRBC Flagged by Analyzer 0 % (0-5); Neutrophil # 4.17 X10^3/uL (2.7-7.7); Neutrophil % 54.2 % (47-70); Platelet Count 159 K/mm3 (150-450); RBC Distribution Width CV 11.8 % (11.6-14.6); RBC Distribution Width SD 39.9 fl (35.1-43.9); White Blood Count 7.7 K/mm3 (4.4-11.0)
[2019-09-07 18:51] LABS: AST(SGOT) 13 U/L (15-37); Alanine Aminotransfer ALT/SGPT 33 U/L (13-56); Alkaline Phosphatase 96 U/L (45-117); Anion Gap 5 (5-15); BUN 12 mg/dL (7-18); BUN/Creat Ratio 12.1 RATIO (10-20); Calcium,Total 9.2 mg/dL (8.5-10.1); Chloride 107 mmol/L (98-107); Creatinine, Serum 0.99 mg/dL (0.55-1.02); EST Glomerular Filtration Rate 63 mL/min (>60); Est Glom Filt Rate - Afr Amer 77 mL/min (>60); Estimated Creatinine Clearance 65.06 ml/min; Globulin 4.2 g/dL (2.2-4.2); Glucose 162 mg/dL (74-106); Lipase 140 U/L (73-393); Potassium 3.6 mmol/L (3.5-5.1); Protein, Total 8.2 g/dL (6.4-8.2); Sodium Level 138 mmol/L (136-145)
[2019-09-07 19:55] LABS: Color, Urine Yellow (Yellow); Glucose, Dipstick Normal (Normal); Ketone-Dipstick Negative (Negative); Leukocyte Esterase-Dipstick 25 /ul (Negative); Mucous, Urine 0 SEEN /hpf (<or=2+); Nitrite-Dipstick Negative (Negative); Occult Blood-Urine 25 /ul (Negative); Protein-Dipstick Negative (Negative); Urine Bilirubin Dipstick Negative (Negative); Urine Clarity Sl. Cloudy (Clear); Urine Urobilinogen Normal (Normal)
[2019-09-07 20:01] LABS: Red Blood Cells-Urine 0-5 SEEN /hpf (0-5); White Blood Cells 0-5 SEEN /hpf (0-5)
[2019-09-07 20:02] LABS: Bacteria 1+ /hpf (None Seen); Squamous Epithelial Cells - UA 0-5 SEEN /hpf (5-10)
[2019-09-07 20:32] VITALS: BP 114/67; PULSE 64; RESP 16; O2SAT 96
== END 2019-09-07 20:33 | disposition home or self-care (01) ==
LOC: ED 18:04
PROVIDERS: Emergency Provider Emergency Medicine; PCP Family Medicine; Referring Provider Family Medicine
DX: R19.7 Diarrhea, unspecified (principal); R11.2 Nausea with vomiting, unspecified; E11.9 Type 2 diabetes mellitus without complications; F17.200 Nicotine dependence, unspecified, uncomplicated; Z86.19 Personal history of other infectious and parasitic diseases; Z79.84 Long term (current) use of oral hypoglycemic drugs
CPT/HCPCS: 80053; 81001; 82009; 82962; 83690; 84484; 85025; 96361; 96374; 96375; 99285; J7030; A4216; J2405

== ENCOUNTER 2019-09-30 12:42 | Emergency (ER) | payer MEDICAID, SELFPAY ==
[2019-09-30 12:44] VITALS: BP 128/85; PULSE 72; RESP 17; TEMP 36.8; O2SAT 98; BMI 24.7
--- NOTE | 2019-09-30 13:22 | ED.VIS.GI ---
History of Present Illness Chief Complaint: Diarrhea Informant: Patient - Abdominal Pain/Flank Pain Onset: Hours - 2 Context: Sudden Onset Timing: Continuous Quality: Cramping Location: Diffuse Current Severity: Mild Maximum Severity: Mild Worsened by: Nothing Relieved by: Nothing - Nausea/Vomiting/Emesis GI Symptom: Nausea. Negative for: Vomiting - Diarrhea/Melena/Hematochezia GI Symptom: Diarrhea. Negative for: Melena, Hematochezia Onset: Today Stool Quality: Watery Severity: Severe Associated Symptoms: Negative for: Dysuria, Frequency, Hematuria, Urgency Narrative: Patient states this past month she was having similar diarrhea but she was diagnosed with influenza during this and thought it was related. She now is gone about 2 weeks with normal bowel movement, and now the watery diarrhea has recurred again today. She states she came to the ER because she tried a dose of Pepto-Bismol and it did not help her diarrhea, which started 2 hours prior to arrival. She did not try any other medications. She has some mild diffuse abdominal cramping that is intermittent. She denies any trouble breathing, fevers, vomiting although she states it is difficult for her to vomit anyway, no known sick contacts. No recent antibiotics in the last couple months, no recent hospital admissions, suspicious food ingestion, or known sick contacts or retirement contact. No history of C. difficile. She drinks well water at her home, no one else in the household is ill, and she has not changed her source of water intake in a long time. - Past Medical History (1) Alcoholic pancreatitis Status: Suspected (2) History of right sided stroke Status: Chronic (3) CHRONIC ALCOHOL USE DEPENDENCE Status: Chronic (4) Depression Status: Chronic (5) Diabetes mellitus type 2 in obese Status: Chronic (6) Dyslipidemia Status: Chronic Past Medical History - Allergies and Home Meds Allergies/Adverse Reactions: Allergies azithromycin Allergy (Verified 09/30/19 12:43) Rash doxycycline Allergy (Verified 09/30/19 12:43) Rash egg Allergy (Verified 09/30/19 12:43) Unknown Penicillins Allergy (Verified 09/30/19 12:43) Rash Primary Care Physician: Ran Dill MD [Primary Care Provider] - Surgical History: cholecystectomy, hysterectomy, tonsillectomy Smoking Status: Current every day smoker - Family History Maternal Family History: Reports: No pertinent history Review of Systems General: Reports: Malaise. Denies: Chills, Fever, Sweats Eyes: Denies: Visual changes - bilaterally, Diplopia ENT: Denies: Rhinorrhea, Sore throat Cardiovascular: Denies: Chest pain, Palpitations Respiratory: Denies: Dyspnea, Cough, Dyspnea on exertion Gastrointestinal: Reports: Abdominal pain, Nausea, Diarrhea. Denies: Vomiting, Melena, Hematochezia Genitourinary: Denies: Dysuria, Hematuria, Frequency Musculoskeletal: Denies: Back pain, Extremity Pain Skin: Denies: Rash, Wounds Neurological: Denies: Headache, Numbness Physical Exam Vital Signs/Narrative: Vital Signs Temp Pulse Resp BP Pulse Ox 09/30/19 12:44 98.3 F 72 17 128/85 H 98 Inital Vital Signs reviewed: Yes General: Well nourished, Well developed, No Acute Distress - well-appearing Head: Normocephalic, Atraumatic Eyes: Perrl, EOMI ENT: Moist mucous membranes, No rhinorrhea Neck: Supple, Nontender Cardiovascular: Regular rate, Regular rhythm, No murmurs. Negative for: Tachycardia Respiratory: No distress, CTA bilaterally, Chest nontender Abdomen: Soft, Nontender, Nondistended, Normal bowel sounds Back: Nontender, Normal Inspection Extremities: Nontender, No edema Skin: Normal color, No rash, No Trauma, - - nml inspection BLE Neurological: Alert, Oriented x3, Cranial nerves II-XII grossly intact Psychological: Normal affect, Normal Mood Diagnostic/Tx/Re-eval Laboratory Results 09/30/19 09/30/19 13:35 13:35 WBC 9.8 RBC 5.15 Hgb 15.5 H Hct 48.3 H MCV 93.8 MCH 30.1 MCHC 32.1 RDW Std Deviation 40.5 RDW Coeff of Arlene 11.8 Plt Count 204 MPV 12.1 H Immature Gran % (Auto) 0.300 Neut % (Auto) 65.0 Lymph % (Auto) 28.0 [place] % (Auto) 4.8 Eos % (Auto) 1.5 Baso % (Auto) 0.4 Absolute Neuts (auto) 6.4 Absolute Lymphs (auto) 2.74 Nucleated RBC % 0 Sodium 141 Potassium 4.4 Chloride 111 H Carbon Dioxide 28.0 Anion Gap 2 L BUN 22 H Creatinine 1.02 Estim Creat Clear Calc 63.14 Est GFR (MDRD) Af Amer 74 Est GFR (MDRD) Non-Af 61 BUN/Creatinine Ratio 21.6 H Glucose 143 H Calcium 9.0 Total Bilirubin 0.40 AST 14 L ALT 35 Alkaline Phosphatase 80 Total Protein 7.9 Albumin 4.0 Globulin 3.9 Albumin/Globulin Ratio 1.0 - Medical Decision Making Patient was given a liter of IV fluids and oral dicyclomine which did help her symptoms and she felt better. Her labs are normal except for mild prerenal azotemia. She was able to provide stool. She is not particularly at a high risk for C. difficile, but I did send that test to rule it out, in addition to an enteric bacterial panel and ova/parasites. Some of these test will come back today and others are send outs. I discussed with the patient and asked if she would like to wait and she states that she would not. We will monitor for the test results but in the meantime she is advised to follow-up as an outpatient regarding the test results and reevaluation. I gave her a dose of Imodium, since she is not at particularly high risk for any of these major nonviral infectious etiologies. ED Disposition - Plan for ED Patient: Disposition: Home or Assisted Living Diagnosis: Acute diarrhea Instructions: DIARRHEA, Unk Cause (Adult) Report Pendg Referrals: Ran Dill MD [Primary Care Provider] - 3-5 Days if not improving
[2019-09-30 13:42] LABS: Absolute Lymphocyte Count 2.74 X10^3/uL (0.83-4.51); Absolute Neutrophil Count 6.4 X10^3/uL (2.0-7.7); Basophil# 0.04 X10^3/uL; Basophil% 0.4 % (0-1); Eosinophil# 0.15 X10^3/uL; Eosinophils% 1.5 % (0-5); Hematocrit 48.3 % (37-47); Hemoglobin 15.5 g/dL (12.0-15.0); Lymphocyte # 2.74 X10^3/ul (4.0); Mean Corp Hgb Conc 32.1 g/dL (32-36); Mean Corpuscular Hgb 30.1 pg (27.0-32.0); Mean Corpuscular Volume 93.8 fL (81-99); Mean Platelet Vol. 12.1 fl (6.2-12.0); Monocyte# 0.47 X10^3/uL; Monocyte% 4.8 % (0-10); NRBC Flagged by Analyzer 0 % (0-5); Neutrophil # 6.37 X10^3/uL (2.7-7.7); Platelet Count 204 K/mm3 (150-450); RBC Distribution Width CV 11.8 % (11.6-14.6); RBC Distribution Width SD 40.5 fl (35.1-43.9); Red Blood Count 5.15 M/mm3 (4.2-5.4); White Blood Count 9.8 K/mm3 (4.4-11.0)
[2019-09-30] MEDS: 0.9% Normal Saline 1,000 ML 1000 ML IV (13:45)
[2019-09-30] MEDS: Ondansetron 4 MG/2 ML Vial IV (13:46)
[2019-09-30] MEDS: Dicyclomine 10 MG Capsule 20 MG PO (13:46)
[2019-09-30 13:47] VITALS: TEMP 37.1
[2019-09-30 13:59] LABS: AST(SGOT) 14 U/L (15-37); Alanine Aminotransfer ALT/SGPT 35 U/L (13-56); Alkaline Phosphatase 80 U/L (45-117); Anion Gap 2 (5-15); BUN 22 mg/dL (7-18); BUN/Creat Ratio 21.6 RATIO (10-20); Chloride 111 mmol/L (98-107); Creatinine, Serum 1.02 mg/dL (0.55-1.02); EST Glomerular Filtration Rate 61 mL/min (>60); Est Glom Filt Rate - Afr Amer 74 mL/min (>60); Estimated Creatinine Clearance 63.14 ml/min; Globulin 3.9 g/dL (2.2-4.2); Glucose 143 mg/dL (74-106); Potassium 4.4 mmol/L (3.5-5.1); Protein, Total 7.9 g/dL (6.4-8.2); Sodium Level 141 mmol/L (136-145)
[2019-09-30] MEDS: Loperamide 2 MG Capsule 4 MG PO (15:40)
[2019-09-30 16:09] VITALS: BP 101/64; PULSE 58; RESP 16; RESP 17; O2SAT 96
== END 2019-09-30 16:10 | disposition home or self-care (01) ==
PROVIDERS: Emergency Provider Emergency Medicine; PCP Family Medicine
DX: R19.7 Diarrhea, unspecified (principal); E11.9 Type 2 diabetes mellitus without complications; F32.9 Major depressive disorder, single episode, unspecified; E78.5 Hyperlipidemia, unspecified; E66.9 Obesity, unspecified; F17.200 Nicotine dependence, unspecified, uncomplicated; F10.20 Alcohol dependence, uncomplicated; Y90.9 Presence of alcohol in blood, level not specified; Z79.02 Long term (current) use of antithrombotics/antiplatelets; Z79.84 Long term (current) use of oral hypoglycemic drugs; Z86.73 Personal history of transient ischemic attack (TIA), and cerebral infarction without residual deficits
CPT/HCPCS: 80053; 85025; 87177; 87209; 87493; 87506; 96361; 96374; 99284; J7030; A4216; J2405

== ENCOUNTER → 2019-10-07 | Outpatient (CLI) | payer MEDICAID, SELFPAY ==
[2019-09-30 12:44] VITALS: BMI 24.7
[2019-10-07 16:49] LABS: Erythrocyte Sedimentation Rate 25 mm/hr (0-20)
== END | disposition home or self-care (01) ==
PROVIDERS: PCP Family Medicine; Referring Provider Physician Assistant; Visit Provider Physician Assistant
DX: R10.31 Right lower quadrant pain (principal); R35.0 Frequency of micturition; R31.0 Gross hematuria
CPT/HCPCS: 85652

== ENCOUNTER 2019-12-22 18:33 | Emergency (ER) | payer MEDICAID, SELFPAY ==
[2019-12-22 18:34] VITALS: BP 149/92; PULSE 82; RESP 17; TEMP 36.4; O2SAT 100; BMI 24.4
--- NOTE | 2019-12-22 18:51 | EKG12_ITS ---
Test Reason : CP/SOB Blood Pressure : / mmHG Vent. Rate : 074 BPM Atrial Rate : 074 BPM P-R Int : 138 ms QRS Dur : 084 ms QT Int : 364 ms P-R-T Axes : 029 022 050 degrees QTc Int : 404 ms Normal sinus rhythm Nonspecific ST and T wave abnormality Abnormal ECG Confirmed by ANA PETERSEN, CLARY ([id number]), news assignment editor AMANDA DAVILA ([id number]) on 12/23/2019 3:09:41 PM Referred By: ISAURA Confirmed By:CLARY PEREZ MD
[2019-12-22 19:03] VITALS: O2SAT 95
--- NOTE | 2019-12-22 19:07 | RAD_ITS ---
STUDY: X-RAY CHEST REASON FOR EXAM: Female, 49 years old. Shortness of breath with headache TECHNIQUE: Single frontal view of the chest. COMPARISON: April 10, 2017 FINDINGS: There is no new focal consolidation. Normal size heart. Normal mediastinum and rupal. Normal visualized pulmonary arteries. Normal visualized aortic arch and descending thoracic aorta. Normal visualized thoracic spine. Normal visualized ribs, clavicles, and shoulders. There is no demonstrated abnormality of the visualized soft tissue structures of the upper abdomen. RAD/Chest 1 View (Portable) IMPRESSION: No acute cardiopulmonary process. Electronically Signed: Ekaterina Casas MD at 19:36 EDT Tel , Service support ,
[2019-12-22] MEDS: Ketorolac 15 MG/ML Vial IV (19:14)
[2019-12-22] MEDS: 0.9% Normal Saline 1,000 ML 1000 ML IV (19:14)
[2019-12-22 19:15] VITALS: BP 120/91; PULSE 75; RESP 19; O2SAT 94
[2019-12-22 19:27] LABS: Absolute Lymphocyte Count 3.52 X10^3/uL (0.83-4.51); Basophil# 0.07 X10^3/uL; Basophil% 0.7 % (0-1); Eosinophils% 3.2 % (0-5); Hematocrit 47.5 % (37-47); Hemoglobin 15.9 g/dL (12.0-15.0); Lymphocyte # 3.52 X10^3/ul (4.0); Lymphocyte % 37.4 % (19-41); Mean Corp Hgb Conc 33.5 g/dL (32-36); Mean Corpuscular Hgb 31.3 pg (27.0-32.0); Mean Corpuscular Volume 93.5 fL (81-99); Mean Platelet Vol. 12.4 fl (6.2-12.0); Monocyte# 0.48 X10^3/uL; Monocyte% 5.1 % (0-10); NRBC Flagged by Analyzer 0 % (0-5); Neutrophil # 5.01 X10^3/uL (2.7-7.7); Neutrophil % 53.4 % (47-70); POSITIVE COUNT YES; Platelet Count 150 K/mm3 (150-450); RBC Distribution Width CV 12.3 % (11.6-14.6); RBC Distribution Width SD 42.2 fl (35.1-43.9); Red Blood Count 5.08 M/mm3 (4.2-5.4); White Blood Count 9.4 K/mm3 (4.4-11.0)
[2019-12-22 19:33] LABS: Anion Gap 6 (5-15); BUN 16 mg/dL (7-18); BUN/Creat Ratio 17.5 RATIO (10-20); Calcium,Total 9.3 mg/dL (8.5-10.1); Chloride 108 mmol/L (98-107); Creatinine, Serum 0.91 mg/dL (0.55-1.02); EST Glomerular Filtration Rate 70 mL/min (>60); Est Glom Filt Rate - Afr Amer 85 mL/min (>60); Estimated Creatinine Clearance 73.52 ml/min; Glucose 117 mg/dL (74-106); Potassium 4.2 mmol/L (3.5-5.1); Sodium Level 141 mmol/L (136-145)
[2019-12-22 19:36] LABS: Differential Indicated SCAN CRITERIA MET
--- NOTE | 2019-12-22 19:52 | ED.DCSUM_ITS ---
- ER Visit Summary Date of Service: 12/22/19 Chief Complaint: Chest pain History of Present Illness: The patient is a [address] Dill. She reports that she has substernal chest pain that began approximately 2 hours ago while she was at rest. She states this is a sharp pain is worsened by taking d eep breaths or walking. Is relieved by nothing. She does report that she is mildly short of breath. She denies any nausea, vomiting, or diaphoresis. There is no radiation of the pain. Patient denies any fever, chills, sore throat, or cough. Physical Examination: Vitals: Stable. Afebrile. General: Well-nourished and well-developed. Head: Normocephalic atraumatic. Neck: Supple, no lymphadenopathy. No JVD. Nontender. Cardiovascular: Regular rate and rhythm. No murmurs. Respiratory: No respiratory distress. Clear to auscultation bilaterally. Moderate tenderness palpation of the costochondral margin bilaterally. This does reproduce her pain. Abdominal: Soft, nontender, nondistended, normal bowel sounds. No guarding, rebound, or peritoneal signs. Back: Nontender. Extremities: Nontender, no edema. Skin: Normal color, no rash. Neurologic: Alert and oriented ?3. Cranial nerves II through XII are intact. Normal strength and sensation. Psych: Normal affect. Test Results: EKG is sinus at [address] changes. CBC shows an H&H of 15.9 and 47.5. Chem-7 shows a chloride of 108, glucose 117. Troponin is negative. Chest x-ray is normal. Emergency Department Course and Treatment: Patient was treated with a dose of Toradol. She is resting comfortably. Treatment Plan: Patient's pain is reproduced with palpation. She will be discharged with naproxen. Instructed follow-up with her primary care physician in 3 to 5 days if not improving. Return to the emergency department for any worsening symptoms. Disposition: To home in improved and stable condition. Impression: 1. Musculoskeletal chest pain. This note was generated with [employer] software. It may contain incorrect words, spelling, and punctuation that were not noted in review of the chart prior to signing ED Disposition - Plan for ED Patient: Disposition: Home or Assisted Living Instructions: ED Chest Pain Atypical Unkn Cause Prescriptions: Naproxen [Naprosyn] 500 mg PO BID #14 tab Prescription Printed Referrals: Ran Dill MD [Primary Care Provider] - 3-5 Days if not improving
[2019-12-22 19:53] LABS: Differential Comment SCANNED
[2019-12-22 19:54] VITALS: BP 162/77; PULSE 68; RESP 14; O2SAT 98
== END 2019-12-22 20:01 | disposition home or self-care (01) ==
LOC: ED 19:07
PROVIDERS: Emergency Provider Emergency Medicine; PCP Family Medicine
DX: R07.89 Other chest pain (principal); E11.9 Type 2 diabetes mellitus without complications; F32.9 Major depressive disorder, single episode, unspecified; Z72.0 Tobacco use; Z79.84 Long term (current) use of oral hypoglycemic drugs; Z79.02 Long term (current) use of antithrombotics/antiplatelets; Z79.899 Other long term (current) drug therapy
CPT/HCPCS: 71045; 80048; 84484; 85025; 93005; 99285; J7030

== ENCOUNTER → 2020-06-03 09:25 | Outpatient (CLI) | payer MEDICAID, SELFPAY | PROVIDERS: PCP Family Medicine | DX: Z20.828 Contact with and (suspected) exposure to other viral communicable diseases (principal) | CPT/HCPCS: 87635; C9803; U0003 ==

== ENCOUNTER 2020-07-17 22:17 | Emergency (ER) | payer MEDICAID, SELFPAY ==
[2020-07-17 22:18] VITALS: BP 156/96; PULSE 83; RESP 19; TEMP 37.1; O2SAT 95; BMI 22.8
[2020-07-17 22:24] VITALS: BP 156/96; PULSE 87; RESP 19; TEMP 37.1; O2SAT 98
--- NOTE | 2020-07-17 22:27 | CT_ITS ---
We are attempting to reach an attending provider to discuss findings. An addendum with communication details will be sent when the communication is complete. STUDY: CT HEAD STROKE PROTOCOL W/O CONTRAST INJECTION REASON FOR EXAM: Female, 50 years old. STROKE. Previous stroke with surgery 2010? RADIATION DOSAGE (If Supplied By Facility): CTDIvol = ( 44.99 ) mGy, DLP = ( 796.11 ) mGycm TECHNIQUE: Transaxial CT imaging of the brain was performed without administration of intravenous contrast material. Individualized dose optimization techniques were used for this CT. COMPARISON: 03/20/2012 CT brain FINDINGS: Normal soft tissue structures. Right pterional craniotomy. Encephalomalacia right parietal cortex. This is mild to moderate atrophy near the vertex. There are areas of decreased attenuation within the white matter tracts of the supratentorial brain, consistent with microvascular disease changes. Normal basal ganglia and thalami. Normal brainstem. Normal cerebellum. There is no intracranial hemorrhage. There are no findings of an acute ischemic infarction. Normal visualized paranasal sinuses. CT/STROKE Brain/Head without Cont IMPRESSION: Encephalomalacia right parietal lobe. No acute disease. Electronically Signed: Attila Taylor MD at 22:53 EST , Service support ,
--- NOTE | 2020-07-17 22:27 | EKG12_ITS ---
Test Reason : DYSRHYTHMIA Blood Pressure : / mmHG Vent. Rate : 071 BPM Atrial Rate : 071 BPM P-R Int : 136 ms QRS Dur : 084 ms QT Int : 390 ms P-R-T Axes : 034 038 057 degrees QTc Int : 423 ms Normal sinus rhythm with sinus arrhythmia Nonspecific ST abnormality Abnormal ECG Confirmed by ANA PETERSEN, CLARY ([id number]), senior editor MARTY LUCIANO ([id number]) on 07/20/2020 1:19:49 PM Referred By: KOURTNEY Confirmed By:CLARY PEREZ MD
--- NOTE | 2020-07-17 22:28 | CT_ITS ---
We are attempting to reach an attending provider to discuss findings. An addendum with communication details will be sent when the communication is complete. STUDY: CTA HEAD AND NECK WITH CONTRAST REASON FOR EXAM: Female, 50 years old. STROKE. N/T right side of face. Dizzy and light-headed. Prior stroke with surgery 2010 RADIATION DOSAGE (If Supplied By Facility): CTDIvol = ( 17.01 ) mGy, DLP = ( 591.03 ) mGycm TECHNIQUE: CT angiography was performed with a multi-detector CT scanner. Data acquisition was obtained from the skull base through the vertex following intravenous administration of IV 100mL Isovue-300. MIP images were reconstructed from the axial data set. Post-processing of the angiographic images was performed, with multiplanar reformation and 3D reconstruction. Individualized dose optimization techniques were used for this CT. COMPARISON: CT of the head from today and CTA of head and neck 10/26/2011 FINDINGS: The right petrous carotid artery is now occluded or nearly occluded. Left petrous patent. Right cavernous carotid artery is now nearly occluded or occluded. Normal left cavernous carotid artery with a normal supraclinoid bifurcation. The supraclinoid left internal carotid artery now appears occluded or nearly occluded at the carotid terminus. There appear to be multiple ill-defined collaterals within the basal ganglia bilaterally. The A1 segments are not well visualized bilaterally. These may be hypoplastic or absent. A2 segments appear relatively normal bilaterally. Anterior communicating artery appears to be patent. The middle cerebral arteries appear somewhat atretic bilaterally but patent. Posterior communicating arteries are not well visualized and may be hypoplastic or absent. Normal bilateral vertebral arteries. Normal basilar artery with a normal basilar bifurcation. The visualized bilateral superior cerebellar (SCA) arteries are normal. Normal bilateral P1, P2 and visualized P3 segments of the posterior cerebral arteries. There is no demonstrated aneurysm of the alatna of [place]. There is no demonstrated abnormality of the visualized brain. AORTIC ARCH: Normal visualized aortic arch. Normal origins of the brachiocephalic, left common carotid, and left subclavian arteries. RIGHT CAROTID ARTERIES: Normal right common carotid artery (CCA). Normal right common carotid bulb. Right ICA is now occluded or nearly occluded. Normal origin of the right external carotid artery (ECA). LEFT CAROTID ARTERIES: Normal left common carotid artery (CCA). Normal left common carotid bulb. There is moderate stenosis of the proximal ICA on the left approximately 50%. Normal origin of the left external carotid artery (ECA). VERTEBRAL ARTERIES: Normal bilateral vertebral arteries. CT/STROKE CTA Head AND Neck W/Con IMPRESSION: New occlusion or near occlusion left carotid terminus. Right cervical ICA, petrous ICA and cavernous are now occluded or nearly occluded. Decreased flow within the anterior and middle cerebral arteries bilaterally and collateralization of the basal ganglia suggestive of moyamoya. Electronically Signed: Attila Taylor MD at 23:12 EST , Service support ,
[2020-07-17 22:31] LABS: Bedside Glucose 284 mg/dL (70-110)
[2020-07-17 22:32] VITALS: O2SAT 96
--- NOTE | 2020-07-17 22:33 | ED.DCSUM_ITS ---
History of Present Illness Chief Complaint: Numb/Ting Informant: Patient Narrative: Patient is a 50-year-old female with a past medical history of CVA, diabetes, hyperlipidemia who presents to the emergency department for right-sided numbness and mild slowed speech. She states that she initially developed some dizziness and lightheadedness around 6 PM. At 9pm she felt like her right side of her body felt different than her left. She does have residual deficits with left- sided weakness compared to the right from her previous stroke. States she is on Plavix but does not on any other anticoagulation. She denies any history of atrial fibrillation. She denies any headache or vision changes. She feels like her speech is mildly slowed. No issues with word finding. She denies any loss of strength compared to her baseline. No chest pain, shortness of breath or heart palpitations. No abdominal pain or nausea/vomiting. She denies any urinary symptoms. She denies any recent illness. Past Medical History - Allergies and Home Meds Allergies/Adverse Reactions: Allergies azithromycin Allergy (Verified 07/17/20 22:40) Rash doxycycline Allergy (Verified 07/17/20 22:40) Rash egg Allergy (Verified 07/17/20 22:40) Unknown Penicillins Allergy (Verified 07/17/20 22:40) Rash Primary Care Physician: Ran Dill MD [Primary Care Provider] - Prior records reviewed: Yes Surgical History: cholecystectomy, hysterectomy, tonsillectomy Smoking Status: Current every day smoker - Family History Maternal Family History: Reports: No pertinent history Review of Systems All systems negative except as indicated General: Denies: Chills, Fever, Sweats Eyes: Denies: Visual changes - bilaterally, Diplopia ENT: Denies: Rhinorrhea, Sore throat Cardiovascular: Denies: Chest pain, Palpitations Respiratory: Denies: Dyspnea, Cough, Dyspnea on exertion Gastrointestinal: Denies: Abdominal pain, Nausea, Vomiting, Diarrhea Genitourinary: Denies: Dysuria, Hematuria, Frequency Musculoskeletal: Denies: Back pain, Extremity Pain Skin: Denies: Rash, Wounds Neurological: Reports: Numbness. Denies: Headache, Weakness Physical Exam Vital Signs/Narrative: Vital Signs Temp Pulse Resp BP Pulse Ox 07/17/20 22:32 96 07/17/20 22:24 98.7 F 87 19 H 156/96 H 98 07/17/20 22:18 98.7 F 83 19 H 156/96 H 95 Inital Vital Signs reviewed: Yes General: Well nourished, Well developed, No Acute Distress Head: Normocephalic, Atraumatic Eyes: Perrl, EOMI ENT: Moist mucous membranes, No rhinorrhea Neck: Supple, Nontender Cardiovascular: Regular rate, Regular rhythm, No murmurs Respiratory: No distress, CTA bilaterally, Chest nontender Abdomen: Soft, Nontender, Nondistended, Normal bowel sounds Back: Nontender, Normal Inspection Extremities: Nontender, No edema Skin: Normal color, No rash Neurological: Alert, Oriented x3, Normal Strength, Parasthesia - Right arm and leg as well as right-sided face. She does have sensation but states it feels different., - - She does sound like she has some mild dysarthria. Initial NIH score of 2.. Negative for: Left side facial droop, Right side facial droop Psychological: Normal affect, Normal Mood Diagnostic/Tx/Re-eval Chest X-Ray - ED: 1 View - One-view portable x-ray interpreted by myself. Clear lung galeas bilaterally. Normal cardiac silhouette. No acute cardiopulmonary process. Agree with radiologist. - EKG Initial EKG Interpretation: - - Rate of 71 bpm and normal sinus rhythm. Normal intervals. Normal axis. No ST elevations or depressions. No T wave abnormalities. Prior EKG for comparison was performed on December [id number] which is similar in appearance. - Medical Decision Making Patient presents to the ED for strokelike symptoms. She has right-sided numbness and mild dysarthria. Initial NIH score of 2. Her last known well was 6 PM it is outside the TPA window.. Will obtain CT imaging of the head and neck. Basic lab work being obtained. Initial blood glucose was 280 upon arrival. I spoke with [facility]'s teleneuro stroke team and they did not feel patient requires TPA as she is out of the window with her initial symptoms started at [address] angio was performed which did show occlusion/significant stenosis of both internal carotid arteries. The left does appear to be new. There is also concern for moyamoya. [facility] was then reconsulted and accepted the patient for transfer. She will be going to the emergency department. They did not request to start any new medications at this time. Patient is agreeable with this plan. She did not have any worsening symptoms throughout ED stay. She is transferred in stable condition. ED Disposition - Plan for ED Patient: Disposition: [facility] Diagnosis: Internal carotid artery occlusion, Moyamoya, Numbness, Dysarthria Referrals: Ran Dill MD [Primary Care Provider] -
[2020-07-17 22:44] LABS: Absolute Lymphocyte Count 3.44 X10^3/uL (0.83-4.51); Absolute Neutrophil Count 5.1 X10^3/uL (2.0-7.7); Basophil# 0.08 X10^3/uL; Basophil% 0.8 % (0-1); Eosinophil# 0.42 X10^3/uL; Eosinophils% 4.4 % (0-5); Hemoglobin 14.4 g/dL (12.0-15.0); Lymphocyte # 3.44 X10^3/ul (4.0); Lymphocyte % 35.6 % (19-41); Mean Corp Hgb Conc 33.5 g/dL (32-36); Mean Corpuscular Volume 92.5 fL (81-99); Mean Platelet Vol. 12.2 fl (6.2-12.0); Monocyte# 0.56 X10^3/uL; Monocyte% 5.8 % (0-10); NRBC Flagged by Analyzer 0 % (0-5); Neutrophil # 5.12 X10^3/uL (2.7-7.7); Neutrophil % 53.1 % (47-70); Platelet Count 179 K/mm3 (150-450); RBC Distribution Width CV 11.9 % (11.6-14.6); RBC Distribution Width SD 40.1 fl (35.1-43.9); Red Blood Count 4.65 M/mm3 (4.2-5.4); White Blood Count 9.7 K/mm3 (4.4-11.0)
[2020-07-17 22:46] VITALS: BP 135/82; PULSE 82; RESP 13; O2SAT 99
[2020-07-17 22:50] LABS: Prothrombin Time (Protime)PT. 12.6 SECONDS (11.7-14.9)
[2020-07-17 22:51] LABS: Partial Thromboplast Time 25.3 Seconds (24.1-36.2)
[2020-07-17 22:58] LABS: Anion Gap 5 (5-15); BUN 19 mg/dL (7-18); BUN/Creat Ratio 19.4 RATIO (10-20); Calcium,Total 9.1 mg/dL (8.5-10.1); Chloride 104 mmol/L (98-107); Creatinine, Serum 0.98 mg/dL (0.55-1.02); EST Glomerular Filtration Rate 64 mL/min (>60); Est Glom Filt Rate - Afr Amer 78 mL/min (>60); Estimated Creatinine Clearance 67.53 ml/min; Glucose 265 mg/dL (74-106); Potassium 3.9 mmol/L (3.5-5.1); Sodium Level 139 mmol/L (136-145)
--- NOTE | 2020-07-17 23:00 | RAD_ITS ---
HISTORY: C/o feeling light headed and dizzy around 1800. Began with n/t to the right side of face approx one hour ago. stroke alert. ADDITIONAL HISTORY: None provided. EXAMINATION/TECHNIQUE: XR Chest 1 View AP/PA Number of images including paperwork: 1 COMPARISON: 12/22/2019 FINDINGS: LUNGS AND PLEURA: No consolidation, mass or pleural effusion. CARDIAC SILHOUETTE: Unremarkable. MEDIASTINUM AND SEBASTIÁN: Unremarkable. UPPER ABDOMEN: Unremarkable. SKELETON AND SOFT TISSUES: No acute skeletal findings. OTHER DEVICES AND HARDWARE: None. RAD/Chest 1 View IMPRESSION: No acute cardiopulmonary abnormality. at 2322 Reported and signed by: Shaunna Ochoa MD Electronically Signed: Shaunna Ochoa MD at 23:21 EST Tel , Service support ,
[2020-07-17 23:02] VITALS: BP 131/85; PULSE 77; RESP 20; O2SAT 97
[2020-07-17 23:30] VITALS: BP 149/97; PULSE 73; RESP 17; O2SAT 99
--- NOTE | 2020-07-17 23:42 | ED.RN ---
per pt request, this RN called and spoke with and boyfriend about pt status and decision to transfer pt to [facility]. this RN also called two sons and left voicemail. pt aware.
[2020-07-17 23:57] LABS: Alcohol, Blood (Medical)-Serum < 3.0 mg/dL
[2020-07-18] VITALS: BP 147/93; BP 162/95; PULSE 70; PULSE 72; RESP 13; RESP 15; O2SAT 98
[2020-07-18 00:30] VITALS: BP 162/95; PULSE 70; RESP 13; O2SAT 98
[2020-07-18 01:00] VITALS: BP 143/104; PULSE 63; RESP 18; O2SAT 96
[2020-07-18 01:30] VITALS: BP 132/86; PULSE 78; RESP 15; O2SAT 96
[2020-07-18 02:00] VITALS: BP 130/72; PULSE 72; RESP 16; O2SAT 98
[2020-07-18 03:00] VITALS: BP 136/81; PULSE 72; RESP 18; O2SAT 97
== END 2020-07-18 03:19 | disposition short-term general hospital (02) ==
PROVIDERS: Emergency Provider Emergency Medicine; PCP Family Medicine
DX: I65.23 Occlusion and stenosis of bilateral carotid arteries (principal); I67.5 Moyamoya disease; R47.1 Dysarthria and anarthria; G93.89 Other specified disorders of brain; E78.5 Hyperlipidemia, unspecified; E11.9 Type 2 diabetes mellitus without complications; F17.200 Nicotine dependence, unspecified, uncomplicated; Z79.02 Long term (current) use of antithrombotics/antiplatelets; Z79.4 Long term (current) use of insulin; Z79.899 Other long term (current) drug therapy; Z86.73 Personal history of transient ischemic attack (TIA), and cerebral infarction without residual deficits
CPT/HCPCS: 70450; 70496; 70498; 71045; 80048; 80320; 82962; 84484; 85025; 85610; 85730; 93005; 99285; Q9967; A4216; G0480

== ENCOUNTER 2020-07-23 02:28 | Observation (INO) | payer MEDICAID, SELFPAY ==
[2020-07-23] VITALS (7 sets, daily range): BP systolic 91–142; BP diastolic 47–85; PULSE 48–67; RESP 13–48; TEMP 36.2–37.1; O2SAT 97–99; BMI 24.4; BMI 24.7
--- NOTE | 2020-07-23 02:40 | RAD_ITS ---
STUDY: X-RAY CHEST REASON FOR EXAM: Female, 50 years old. cp and dizziness -- similar to episode on 07/17/20 TECHNIQUE: Single AP portable view of the chest. COMPARISON: 07/17/2020 FINDINGS: There are superimposed monitor leads. The lungs are clear and expanded. There is no demonstrated pleural abnormality. Normal size heart. Normal mediastinum and rupal. Normal visualized pulmonary arteries. Normal visualized aortic arch and descending thoracic aorta. There is a dextroscoliosis of the thoracic spine. Normal visualized ribs, clavicles, and shoulders. There is no demonstrated abnormality of the visualized soft tissue structures of the upper abdomen. RAD/Chest 1 View (Portable) IMPRESSION: No acute cardiopulmonary disease. No significant interval change . Electronically Signed: Lynne Weldon MD at 3:16 EST , Service support ,
--- NOTE | 2020-07-23 02:40 | EKG12_ITS ---
Test Reason : DIZZINESS Blood Pressure : / mmHG Vent. Rate : 051 BPM Atrial Rate : 051 BPM P-R Int : 106 ms QRS Dur : 084 ms QT Int : 470 ms P-R-T Axes : 024 018 030 degrees QTc Int : 433 ms Sinus bradycardia with short TX Nonspecific ST and T wave abnormality Abnormal ECG Confirmed by ANA PETERSEN, CLARY ([id number]), continuity editor DENISSE DEMARCO ([id number]) on 07/24/2020 2:09:23 PM Referred By: Robby Prakash Confirmed By:CLARY PEREZ MD
--- NOTE | 2020-07-23 02:43 | ED.VIS.GEN ---
History of Present Illness Chief Complaint: Chest Pain Informant: Patient Onset: Yesterday Context: Gradual Onset Current Severity: Mild Maximum Severity: Moderate Narrative: Patient presents secondary to central chest pressure that started last evening. Patient states the pressure is constant and does not seem to be changed with movement. She denies shortness of breath. Patient was seen here on the fifth with strokelike symptoms. She has a history of prior stroke and left-sided deficit as well. Due to internal carotid occlusions patient was transferred to [facility]. Patient states they ran a camera up my arm to look at the vessels. 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 She is scheduled to go back to [facility] in 1 week to see a specialist. - Past Medical History (1) Hypertension Status: Chronic (2) Depression Status: Chronic (3) Dyslipidemia Status: Chronic (4) History of right sided stroke Status: Chronic Past Medical History - Allergies and Home Meds Allergies/Adverse Reactions: Allergies azithromycin Allergy (Verified 07/23/20 02:32) Rash doxycycline Allergy (Verified 07/23/20 02:32) Rash egg Allergy (Verified 07/23/20 02:32) Unknown Penicillins Allergy (Verified 07/23/20 02:32) Rash Primary Care Physician: Ran Dill MD [Primary Care Provider] - Prior records reviewed: Yes Surgical History: cholecystectomy, hysterectomy, tonsillectomy Lives: Spouse/ Significant Other Smoking Status: Former smoker - Family History Maternal Family History: Reports: No pertinent history Review of Systems General: Denies: Chills, Fever Eyes: Denies: Visual changes - bilaterally ENT: Denies: Bilateral ear pain Cardiovascular: Reports: Chest pain Respiratory: Denies: Dyspnea, Cough Gastrointestinal: Reports: Constipation. Denies: Abdominal pain, Nausea, Vomiting Genitourinary: Denies: Dysuria Musculoskeletal: Denies: Swelling, Extremity Pain Skin: Denies: Rash Neurological: Denies: Headache Hematologic: Denies: Easy bruising, Easy bleeding Allergy: Denies: Uticaria Physical Exam Vital Signs/Narrative: Vital Signs Temp Pulse Resp BP Pulse Ox 07/23/20 02:29 97.1 F L 55 L 13 142/85 H 97 Inital Vital Signs reviewed: Yes General: Well nourished, Well developed Head: Normocephalic ENT: Moist mucous membranes Neck: Supple Cardiovascular: Bradycardia Respiratory: No distress, CTA bilaterally, Chest nontender Abdomen: Soft, Nontender, Normal bowel sounds Extremities: Nontender Skin: Normal color Neurological: Alert, Oriented x3 Psychological: Normal affect Diagnostic/Tx/Re-eval Chest X-Ray - ED: 1 View, Read by ED Physician, Chronic Changes - EKG Initial EKG Interpretation: Sinus Bradycardia - Sinus bradycardia at 51 bpm. No acute ischemia. - Medical Decision Making Patient had taken 1 baby aspirin prior to arrival and was given 3 additional baby aspirin here. Blood work at this time is unremarkable and chest x-ray is normal. Patient does have known significant carotid disease. I am concerned that she may also have coronary disease. In light of this I will recommend hospitalization for cycling of cardiac enzymes and possible stress test. Patient is in agreement with this. She is still complaining of pressure in her chest and begin a GI cocktail at this time to see if this helps with her symptoms. I will speak with the hospitalist. ED Disposition - Plan for ED Patient: Disposition: Acute Care Hospital [facility] Diagnosis: Chest pain Referrals: Ran Dill MD [Primary Care Provider] -
[2020-07-23] MEDS: Aspirin 81 MG TAB.CHEW 243 MG PO (02:44)
[2020-07-23 02:46] LABS: Absolute Neutrophil Count 4.5 X10^3/uL (2.0-7.7); Basophil# 0.07 X10^3/uL; Basophil% 0.9 % (0-1); Eosinophil# 0.29 X10^3/uL; Eosinophils% 3.6 % (0-5); Hematocrit 39.5 % (37-47); Hemoglobin 13.6 g/dL (12.0-15.0); Lymphocyte % 34.3 % (19-41); Mean Corp Hgb Conc 34.4 g/dL (32-36); Mean Corpuscular Hgb 31.7 pg (27.0-32.0); Mean Corpuscular Volume 92.1 fL (81-99); Mean Platelet Vol. 12.3 fl (6.2-12.0); Monocyte# 0.47 X10^3/uL; Monocyte% 5.8 % (0-10); NRBC Flagged by Analyzer 0 % (0-5); Neutrophil # 4.51 X10^3/uL (2.7-7.7); Neutrophil % 55.2 % (47-70); Platelet Count 159 K/mm3 (150-450); RBC Distribution Width CV 11.9 % (11.6-14.6); RBC Distribution Width SD 39.8 fl (35.1-43.9); Red Blood Count 4.29 M/mm3 (4.2-5.4); White Blood Count 8.2 K/mm3 (4.4-11.0)
[2020-07-23 03:02] LABS: Anion Gap 5 (5-15); BUN 20 mg/dL (7-18); BUN/Creat Ratio 20.3 RATIO (10-20); Calcium,Total 9.4 mg/dL (8.5-10.1); Chloride 104 mmol/L (98-107); Creatinine, Serum 0.98 mg/dL (0.55-1.02); EST Glomerular Filtration Rate 64 mL/min (>60); Est Glom Filt Rate - Afr Amer 77 mL/min (>60); Estimated Creatinine Clearance 67.53 ml/min; Glucose 127 mg/dL (74-106); Potassium 3.7 mmol/L (3.5-5.1); Sodium Level 139 mmol/L (136-145)
[2020-07-23] MEDS: Mag Hydrox/Al Hydrox/Simeth 30 ML UDC PO (03:25)
--- NOTE | 2020-07-23 03:41 | HP.PCM_ITS ---
Problem List (1) Diabetes mellitus type 2 in obese Status: Chronic (2) CHRONIC ALCOHOL USE DEPENDENCE Status: Chronic (3) Dyslipidemia Status: Chronic (4) Depression Status: Chronic (5) History of right sided stroke Status: Chronic (6) Hypertension Status: Chronic (7) Chest pain Status: Acute History of Present Illness Date of Admission: 07/23/20 Chief Complaint: chest pain The patient is a 50 year old F with a significant history of multiple strokes and with plates in her head; chronic left-sided weakness; tobacco abuse and hypertension; hyperlipidemia; diabetes mellitus [facility] substernal nonradiating chest tightness that started about 2 hours before presentation. She rated her pain as 7 out of 10. She denied any aggravating factors to the pain. She denied any nausea, vomiting, diaphoresis or shortness of breath or chest pain. She reports light headedness and unsteady gait. Her chest pain started when she was at rest watching TV. GI cocktail that she received at the emergency department helped her pain. She took one aspirin at home and she was given 3 more baby aspirin at the emergency department. Of note patient was at our hospital on July 17 2020 for strokelike symptoms. She was transferred to [facility]. Reportedly she has bilateral carotid artery occlusion and possible moyamoya. She is scheduled to follow-up at [facility]. Past Medical History Past Medical History (Chronic Problems): Chronic Problems (Last Reviewed 07/23/20 @ 04:[address] Robby Prakash MD) Diabetes mellitus type 2 in obese (Chronic) CHRONIC ALCOHOL USE DEPENDENCE (Chronic) Dyslipidemia (Chronic) Depression (Chronic) History of right sided stroke (Chronic) Hypertension (Chronic) Medical History: Medical History (Last Reviewed 07/23/20 @ 04:[address] 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 Tobacco dependence due to cigarettes F17.210 1-1.5ppd x30 years HTN (hypertension) I10 Allergies azithromycin Allergy (Verified 07/23/20 02:32) Rash doxycycline Allergy (Verified 07/23/20 02:32) Rash egg Allergy (Verified 07/23/20 02:32) Unknown Penicillins Allergy (Verified 07/23/20 02:32) Rash Home Medications: Ambulatory Orders Medication Instructions Recorded Clonazepam [Klonopin] 2 mg PO TID 06/15/14 Quetiapine Fumarate [Seroquel] 50 mg PO QHS 06/15/14 Propranolol HCl [Inderal (Beta 40 mg PO BID 01/18/16 [place])] Clopidogrel Bisulfate [Plavix] 75 mg PO QHS 07/03/16 Glimepiride [Amaryl] 4 mg PO DAILY 01/09/17 Atorvastatin Calcium [Lipitor] 80 mg PO QHS 03/29/18 Acetaminophen [Tylenol Tablet] 650 mg PO Q4H PRN PRN tablet 03/31/18 Pantoprazole Sodium [Protonix] 40 mg PO DAILY #30 tab 03/31/18 Lamotrigine [Lamictal] 25 mg PO DAILY 06/08/18 Alogliptin Benzoate [Alogliptin] 25 mg PO DAILY 09/30/19 Naproxen [Naprosyn] 500 mg PO BID #14 tab 12/22/19 Aspirin [Aspirin, Baby] 81 mg PO DAILY@0800 07/23/20 Ciprofloxacin/Ciprofloxa HCl 500 mg PO Q12H PRN PRN 07/23/20 [Ciprofloxacin ER 500 mg Tablet] Surgical History: Surgical History (Last Reviewed 07/23/20 @ 04:[address] Robby Prakash MD) History of hysterectomy Z90.710 Surgical History: cholecystectomy, hysterectomy, tonsillectomy Lives: Spouse/ Significant Other Smoking Status: Former smoker - *Family History Maternal History Items: Cancer, Heart Disease - Her maternal grand mother had many heart attacks with her first heart attack in her 20s. Also the same maternal grandmother had cardiomegaly and aortic aneurysm rupture. Paternal History Items: Heart Disease - Her father had multiple heart attacks with his first heart attack in his late 30s. Review of Systems Constitutional: Denies: Chills, Fever, Weight Change HEENT: Denies: Head Aches, Sinus Congestion, Sinus Drainage Cardiovascular: Reports: Chest Pain, Light Headedness. Denies: Palpitations Respiratory: Denies: Cough, Shortness of breath at rest, Sputum production Gastrointestinal: Denies: Abdominal Pain, Nausea, Vomiting Genitourinary: Denies: Dysuria Musculoskeletal: Denies: Joint Pain, Joint Tenderness Skin: Denies: Rash, Wounds Neurological: Reports: Incoordination. Denies: Focal weakness, Numbness, Tingling Psychiatric: Denies: Anxiety, Depression, Homicidal Ideations, Suicidal Ideations Hematologic/ Lymphatic: Denies: Easy Bruising, Easy Bleeding VTE Information - Inpt Only VTE Present on Admission: No VTE Mechan Device Prophylaxis: SCD's VTE Pharm Prophylaxis ordered?: No Patient Problems: Active and Suspected Problems (Last Reviewed 07/23/20 @ 04:[address] Robby Prakash MD) Chest pain (Acute) - Physical Exam Vitals/I&O's: Vital Signs Temp Pulse Resp BP Pulse Ox 97.1 F L 55 L 13 142/85 H 97 07/23/20 02:29 07/23/20 02:29 07/23/20 02:29 07/23/20 02:29 07/23/20 02:40 Oxygen Delivery Method Room Air Weight: 70.8 kg Body Mass Index (BMI) 24.4 Finger Stick Blood Glucose 284 General: Alert, Oriented x3, Cooperative HEENT: Atraumatic, PERRLA, EOMI, Normocephalic Neck: Supple, No JVD, Negative Carotid Bruits Lungs: Clear to auscultation, Normal air movement Cardiovascular: Regular rate, Normal S1, Normal S2, No murmurs Abdomen: Bowel Sounds Present, Soft, Non Tender Extremities: No edema, Capillary Refill Less than 3 Seconds Skin: No rashes, No breakdown Musculoskeletal: No Tenderness to Palpation of Joints or Extremities Neurological: Cranial nerves II-XII grossly intact, - - Left upper extremity strength 4 out of 5. Strength in all other extremities 5 out of 5. Psych/Mental Status: Normal Affect, Appropriate Laboratory Results 07/23/20 02:36: WBC 8.2, RBC 4.29, Hgb 13.6, Hct 39.5, MCV 92.1, MCH 31.7, MCHC 34.4, RDW Std Deviation 39.8, RDW Coeff of Arlene 11.9, Plt Count 159, MPV 12.3 H, Immature Gran % (Auto) 0.200, Neut % (Auto) 55.2, Lymph % (Auto) 34.3, [place] % (Auto) 5.8, Eos % (Auto) 3.6, Baso % (Auto) 0.9, Absolute Neuts (auto) 4.5, Absolute Lymphs (auto) 2.80, Nucleated RBC % 0 07/23/20 02:36: Sodium 139, Potassium 3.7, Chloride 104, Carbon Dioxide 30.0, Anion Gap 5, BUN 20 H, Creatinine 0.98, Estim Creat Clear Calc 67.53, Est GFR (MDRD) Af Amer 77, Est GFR (MDRD) Non-Af 64, BUN/Creatinine Ratio 20.3 H, Glucose 127 H, Calcium 9.4, Troponin I < 0.015 Assessment/Plan All Active Problems (Last Reviewed 07/23/20 @ 04:[address] Robby Prakash MD) Chest pain (Acute) Chest pain Place on a monitored bed at PCU Impression of chest x-ray by radiologist: No acute cardiopulmonary disease. Actual CXR image was independently interpreted. No acute cardiopulmonary process was noted. Actual EKG tracing was independently visualized. EKG tracing showed sinus bradycardia with short LA interval and T wave inversion only in lead III. Old records reviewed: EKG on July 17, 2020 showed flattened T waves only in lead III. ASA 81 mg p.o. daily and Plavix daily continued. Morphine as needed for pain ordered Initial troponin was negative. Serial cardiac enzymes ordered Stat EKG as needed for chest pain Chemical stress test in the AM if the cardiac enzymes are negative Diabetes mellitus Patient with hyperglycemia on presentation; mild. Patient now n.p.o. for stress test. Hold glimepiride and DPP 4 inhibitor. Accu-Chek every 6 hours while n.p.o. with correction scale insulin ordered. Chronic stroke with possible moyamoya Aspirin and Plavix as above. Continue follow-up at [facility] upon discharge. Tobacco abuse Counseled Nicotine patch continued. History of migraine headache Stable Propanolol continued. DVT prophylaxis SCD while planning for cardiac work up for chest pain OBSV E&M: [id number] Initial observation care L2
--- NOTE | 2020-07-23 04:06 | EKG12_ITS ---
Test Reason : CP ADMIT Blood Pressure : / mmHG Vent. Rate : 044 BPM Atrial Rate : 044 BPM P-R Int : 128 ms QRS Dur : 078 ms QT Int : 484 ms P-R-T Axes : 026 043 043 degrees QTc Int : 413 ms Marked sinus bradycardia Abnormal ECG When compared with ECG of 23-JUL-2020 02:31, MANUAL COMPARISON REQUIRED, DATA IS UNCONFIRMED Confirmed by NYASIA PETERSEN, LILA ([id number]), editor trade journal MARTY LUCIANO ([id number]) on 08/03/2020 9:44:50 AM Referred By: Robby Prakash Confirmed By:LAKEISHA MURRELL MD
[2020-07-23] MEDS: Aspirin 81 MG TAB.CHEW PO (05:59)
[2020-07-23] MEDS: clonazePAM 1 MG Tablet 2 MG PO ×2 (05:59→13:20)
[2020-07-23] MEDS: 0.9% Saline Lock 10 ML Syringe IV (06:02)
[2020-07-23 06:05] LABS: Bedside Glucose 149 mg/dL (70-110)
[2020-07-23] MEDS: Insulin Lispro 100 UNIT/ML INSULN.PEN SC (11:40)
[2020-07-23 11:45] LABS: Bedside Glucose 173 mg/dL (70-110)
--- NOTE | 2020-07-23 12:42 | STRESSREP ---
Stress Test Report Date: 07/23/2020 Procedure: Pharmacologic stress nuclear imaging study Indications: Chest pain Consent: Per the patient Procedure: The patient underwent pharmacologic (Regadenoson) evaluation with a peak heart rate of 83 beats per minute ([48]%predicted maximal heart rate) and a peak blood pressure of 112/68 mmHg. The baseline ECG demonstrated sinus bradycardia. EKG during lexiscan infusion revealed no significant ischemic changes. EKG post infusion revealed no significant ischemic changes [There were no cardiac dysrhythmias pretest, during pharmacologic infusion, or recovery]. [There was no complaint of chest discomfort during pharmacologic infusion or recovery]. The examination was discontinued secondary to completion of protocol. Impression: 1. Lexiscan stress test test is negative for Lexiscan infusion induced EKG changes of ischemia. 2. Lexiscan stress test test is negative for Lexiscan infusion induced chest pain. 3. Results of the nuclear portion of the test is as below Myocardial perfusion imaging study: Technique: The patient was injected with 11.2 millicuries of technetium 99m Cardiolite and subsequently rest SPECT Cardiolite nuclear imaging was obtained in the horizontal long, vertical long, and short axis views. The patient underwent pharmacologic (Regadenoson) evaluation. Please see above for details. The patient was injected with 33.6 millicuries of technetium 99m Cardiolite and subsequently stress SPECT Cardiolite nuclear imaging was obtained in the horizontal long, vertical long, and short axis views. A gated Cardiolite study at peak stress was obtained. Interpretation: Rest and stress SPECT Cardiolite nuclear imaging status post realignment, normalization, and attenuation correction demonstrate normal myocardial radioisotope uptake. Gated images reveal no significant regional wall motion abnormalities. The reported LVEF is greater than 70%. Impression: 1. There is no evidence of significant ischemia or infarction. 2. Estimated ejection fraction is greater than 70%. This note was generated with [employer] software. It may contain incorrect words, spelling, and punctuation that were not noted in checking the note before signing.
--- NOTE | 2020-07-23 13:09 | DCINST_ITS ---
- Discharge Diagnoses Current Active Problems: Current Active and Chronic Problems (Last Reviewed 07/23/20 @ 04:[address] Robby Prakahs MD) Diabetes mellitus type 2 in obese (Chronic) CHRONIC ALCOHOL USE DEPENDENCE (Chronic) Dyslipidemia (Chronic) Depression (Chronic) History of right sided stroke (Chronic) Hypertension (Chronic) Chest pain (Acute) You will use the following diet at home:: Cardiac Your food should be the consistency of: Regular Your liquids should be the consistency of: Regular/Thin Discharge Activity: Return to Normal Activity Allergies/Adverse Reactions: Allergies azithromycin Allergy (Verified 07/23/20 04:16) Diarrhea doxycycline Allergy (Verified 07/23/20 02:32) Rash egg Allergy (Verified 07/23/20 02:32) Unknown Penicillins Allergy (Verified 07/23/20 02:32) Rash Medications to take at Discharge Clonazepam [Klonopin] 2 mg PO TID 06/15/14 Quetiapine Fumarate [Seroquel] 50 mg PO QHS 06/15/14 Propranolol HCl [Inderal (Beta Valencia)] 40 mg PO BID 01/18/16 Clopidogrel Bisulfate [Plavix] 75 mg PO QHS 07/03/16 Glimepiride [Amaryl] 4 mg PO DAILY 01/09/17 Atorvastatin Calcium [Lipitor] 80 mg PO QHS 03/29/18 Acetaminophen [Tylenol Tablet] 650 mg PO Q4H PRN PRN tablet 03/31/18 Pantoprazole Sodium [Protonix] 40 mg PO DAILY #30 tab 03/31/18 Lamotrigine [Lamictal] 25 mg PO DAILY 06/08/18 Alogliptin Benzoate [Alogliptin] 25 mg PO DAILY 09/30/19 Naproxen [Naprosyn] 500 mg PO BID #14 tab 12/22/19 Aspirin [Aspirin, Baby] 81 mg PO DAILY@0800 07/23/20 Ciprofloxacin/Ciprofloxa HCl [Ciprofloxacin ER 500 mg Tablet] 500 mg PO Q12H PRN PRN 07/23/20 Primary Care Physician: Ran Dill MD [Primary Care Provider] - Please follow up with your Primary Care Physician in: 1-2 weeks Test Results: Test results from this visit will be discussed in further detail at your follow- up appointment, if applicable. Proposed Discharge Date: 07/23/20
--- NOTE | 2020-07-23 13:10 | PCM.DC.SUM ---
<Boy Maria - Last Filed: 07/23/20 13:10> Discharge Date and Diagnosis - Problem List Patient Problems: Active and Suspected Problems (Last Reviewed 07/23/20 @ 04:[address] Robby Prakash MD) Chest pain (Acute) Date of Admission: 07/23/20 Date of Discharge: 07/23/20 - Primary Discharge Diagnosis Acute Problems: Active Problems (Last Reviewed 07/23/20 @ 04:[address] Robby Prakash MD) Chest pain - musculoskeletal - Secondary Discharge Diagnosis Chronic Problems: Chronic Problems (Last Reviewed 07/23/20 @ 04:[address] Robby Prakash MD) Diabetes mellitus type 2 in obese (Chronic) CHRONIC ALCOHOL USE DEPENDENCE (Chronic) Dyslipidemia (Chronic) Depression (Chronic) History of right sided stroke (Chronic) Hypertension (Chronic) Hospital Course and Treatment Imaging Results: 07/23/20 05:55 Nuclear Stress Test - Chemical [NM] AM (NON MEDS) Interpretation: Rest and stress SPECT Cardiolite nuclear imaging status post realignment, normalization, and attenuation correction demonstrate normal myocardial radioisotope uptake. Gated images reveal no significant regional wall motion abnormalities. The reported LVEF is greater than 70%. Impression: 1. There is no evidence of significant ischemia or infarction. 2. Estimated ejection fraction is greater than 70%. RAD/Chest 1 View (Portable) IMPRESSION: No acute cardiopulmonary disease. No significant interval change . Operations: None Procedures: Stress test Summary of Care Provided: Hospital course: The patient is a 50 year old F with pmhx of prior CVA with chronic left sided weakness, Yao Yao, Dmt2, HTN, nicotine abuse who presented to the ER with chest pressure. This was located in the midsternal region, 7 out of 10, pressure-like, constant, without aggravating or alleviating symptoms. She came to the emergency room and was found to have negative EKG, negative troponin, negative chest x-ray. She received a GI cocktail which provided some relief, but not completely. Pt was admitted for chest pain workup. She had not previously had CAD or a stress test. She had negative trop x 3. She went for a stress test the following day which was negative. She was discharged home in stable condition. She was advised to follow up with her PCP in 1-2 weeks. This patient was seen by Boy Maria PA-C under the supervision of Dr. Salazar [] Patient Problems: Active and Suspected Problems (Last Reviewed 07/23/20 @ 04:[address] Robby Prakash MD) Chest pain (Acute) - Physical Exam Vitals/I&O's: Vital Signs Temp Pulse Resp BP Pulse Ox 97.6 F L 58 L 18 91/47 L 98 07/23/20 08:09 07/23/20 08:09 07/23/20 08:09 07/23/20 08:09 07/23/20 08:09 Oxygen Delivery Method Room Air Weight: 153 lb 3.54 oz Body Mass Index (BMI) 24.7 Finger Stick Blood Glucose 284 Intake and Output for Last 24 Hours 07/21/20 07/22/20 07/23/20 23:59 23:59 23:59 Intake Total 620 / 620 Balance 620 / 620 General: Alert, Oriented x3, Cooperative HEENT: Atraumatic, PERRLA, EOMI, Normocephalic Neck: Supple, No JVD, Negative Carotid Bruits Lungs: Clear to auscultation, Normal air movement Cardiovascular: Regular rate, No murmurs Abdomen: Bowel Sounds Present, Soft, Non Tender Extremities: No edema, Capillary Refill Less than 3 Seconds Skin: No rashes, No breakdown Musculoskeletal: No Tenderness to Palpation of Joints or Extremities Neurological: Cranial nerves II-XII grossly intact Psych/Mental Status: Normal Affect, Appropriate, Alert and oriented to time, place, person, mood and affect Laboratory Results 07/23/20 02:36: WBC 8.2, RBC 4.29, Hgb 13.6, Hct 39.5, MCV 92.1, MCH 31.7, MCHC 34.4, RDW Std Deviation 39.8, RDW Coeff of Arlene 11.9, Plt Count 159, MPV 12.3 H, Immature Gran % (Auto) 0.200, Neut % (Auto) 55.2, Lymph % (Auto) 34.3, Hardin % (Auto) 5.8, Eos % (Auto) 3.6, Baso % (Auto) 0.9, Absolute Neuts (auto) 4.5, Absolute Lymphs (auto) 2.80, Nucleated RBC % 0 07/23/20 02:36: Sodium 139, Potassium 3.7, Chloride 104, Carbon Dioxide 30.0, Anion Gap 5, BUN 20 H, Creatinine 0.98, Estim Creat Clear Calc 67.53, Est GFR (MDRD) Af Amer 77, Est GFR (MDRD) Non-Af 64, BUN/Creatinine Ratio 20.3 H, Glucose 127 H, Calcium 9.4, Troponin I < 0.015 07/23/20 05:15: Troponin I < 0.015 07/23/20 05:58: POC Glucose 149 H 07/23/20 08:20: Troponin I < 0.015 07/23/20 11:34: POC Glucose 173 H Current Medications Acetaminophen (Acetaminophen 325 Mg Tablet) 650 mg PO Q6H PRN PRN PRN Reason: Pain Score 1-10/Temp > 100.7 F Aspirin (Aspirin 81 Mg Tab.Chew) 81 mg PO DAILY@0800 [facility] Last Admin: 07/23/20 05:59 Dose: 81 mg Documented by: Atorvastatin Calcium (Atorvastatin Calcium 80 Mg Tablet) 80 mg PO QHS [facility] Clonazepam (Clonazepam 1 Mg Tablet) 2 mg PO TID [facility] Last Admin: 07/23/20 05:59 Dose: 2 mg Documented by: Clopidogrel Bisulfate (Clopidogrel Bisulfate 75 Mg Tablet) 75 mg PO QHS [facility] Dextrose (Dextrose 50%-Water 25 Gm/50 Ml Disp.Syrin) 0 gm IV X1 PRN; Protocol PRN Reason: Hypoglycemia Glucagon (Glucagon 1 Mg/Ml Syringe) 1 mg IM .X1 PRN PRN Reason: Hypoglycemia Sodium Chloride () 250 mls @ 15 mls/hr IV .[id number] PRN PRN Reason: Saline Flush Sodium Chloride () 250 mls @ 15 mls/hr IV .[id number] PRN PRN Reason: Additional IVPB Infusion Insulin Human Lispro (Insulin Lispro 100 Unit/Ml Insuln.Pen) 0 unit SC Q6 [facility]; Protocol Last Admin: 07/23/20 11:40 Dose: 1 u Documented by: Morphine Sulfate (Morphine 2 Mg/Ml Syringe) 2 mg IV Q3H PRN PRN PRN Reason: Pain Score 6-10/10 Nicotine (Nicotine 21 Mg Patch) 21 mg TD DAILY [facility] Non-Formulary Medication (Lamotrigine [Lamictal]) 25 mg PO DAILY [facility] Ondansetron HCl (Ondansetron 4 Mg/2 Ml Vial) 4 mg IV Q8H PRN PRN PRN Reason: NAUSEA/VOMITING Pantoprazole Sodium (Pantoprazole Sodium 40 Mg Tablet) 40 mg PO DAILY [facility] Propranolol HCl (Propranolol 40 Mg Tablet) 40 mg PO BID [facility] Quetiapine Fumarate (Quetiapine 25 Mg Tablet) 50 mg PO QHS [facility] Senna/Docusate Sodium (Senna/Docusate Sodium 1 Tablet) 2 tablet PO BID PRN PRN PRN Reason: Constipation Sodium Chloride (0.9% Saline Lock 10 Ml Syringe) 10 - 40 ml IV UD PRN PRN Reason: SALINE FLUSH Last Admin: 07/23/20 06:02 Dose: 10 ml Documented by: Discharge Diet: Low fat/ Low Cholesterol, 2000 mg Sodium Diet Discharge Activity: Return to Normal Activity Home Medications: Medications to take at Discharge Clonazepam [Klonopin] 2 mg PO TID 06/15/14 Quetiapine Fumarate [Seroquel] 50 mg PO QHS 06/15/14 Propranolol HCl [Inderal (Beta Valencia)] 40 mg PO BID 01/18/16 Clopidogrel Bisulfate [Plavix] 75 mg PO QHS 07/03/16 Glimepiride [Amaryl] 4 mg PO DAILY 01/09/17 Atorvastatin Calcium [Lipitor] 80 mg PO QHS 03/29/18 Acetaminophen [Tylenol Tablet] 650 mg PO Q4H PRN PRN tablet 03/31/18 Pantoprazole Sodium [Protonix] 40 mg PO DAILY #30 tab 03/31/18 Lamotrigine [Lamictal] 25 mg PO DAILY 06/08/18 Alogliptin Benzoate [Alogliptin] 25 mg PO DAILY 09/30/19 Naproxen [Naprosyn] 500 mg PO BID #14 tab 12/22/19 Aspirin [Aspirin, Baby] 81 mg PO DAILY@0800 07/23/20 Ciprofloxacin/Ciprofloxa HCl [Ciprofloxacin ER 500 mg Tablet] 500 mg PO Q12H PRN PRN 07/23/20 Primary Care Physician: Ran Dill MD [Primary Care Provider] - Please follow up with your Primary Care Physician in: 1-2 weeks Disposition: Home Minutes spent on discharge:: 35 Patient Condition:: Stable Medical Necessity - Tobacco Use Smoking Status: Former smoker Tobacco Use: Cigarettes Meaningful Use Info Meaningful Use Diagnoses (Choose all that apply): None applicable <Zen Salazar - Last Filed: 07/23/20 14:17> Discharge Date and Diagnosis - Primary Discharge Diagnosis Acute Problems: Active Problems (Last Reviewed 07/23/20 @ 04:[address] Robby Prakash MD) Chest pain (Acute) - Secondary Discharge Diagnosis Chronic Problems: Chronic Problems (Last Reviewed 07/23/20 @ 04:[address] Robby Prakash MD) Diabetes mellitus type 2 in obese (Chronic) CHRONIC ALCOHOL USE DEPENDENCE (Chronic) Dyslipidemia (Chronic) Depression (Chronic) History of right sided stroke (Chronic) Hypertension (Chronic) Hospital Course and Treatment Imaging Results: 07/23/20 05:55 Nuclear Stress Test - Chemical [NM] AM (NON MEDS) Operations: None Procedures: Stress test Summary of Care Provided: Patient seen and examined independently. Data reviewed. I agree with the above note by the physician surgical services assistant. The patient is a 50 year old F presents with midsternal to left-sided chest pain. Patient was evaluated with EKG, troponins and stress test. All of which were negative. From cardiac standpoint patient is medically cleared for discharge. No additional cardiac work-up is necessary at this time. [] - Physical Exam Vitals/I&O's: Vital Signs Temp Pulse Resp BP Pulse Ox 36.4 C L 58 L 18 91/47 L 98 07/23/20 08:09 07/23/20 08:09 07/23/20 08:09 07/23/20 08:09 07/23/20 08:09 Oxygen Delivery Method Room Air Weight: 69.5 kg Body Mass Index (BMI) 24.7 Finger Stick Blood Glucose 284 Intake and Output for Last 24 Hours 07/21/20 07/22/20 07/23/20 23:59 23:59 23:59 Intake Total 620 / 620 Balance 620 / 620 General: Alert, Cooperative HEENT: Atraumatic, Normocephalic Lungs: Clear to auscultation, Normal air movement Cardiovascular: Regular rate, No murmurs Abdomen: Bowel Sounds Present, Soft, Non Tender Skin: No rashes, No breakdown Laboratory Results 07/23/20 02:36: WBC 8.2, RBC 4.29, Hgb 13.6, Hct 39.5, MCV 92.1, MCH 31.7, MCHC 34.4, RDW Std Deviation 39.8, RDW Coeff of Arlene 11.9, Plt Count 159, MPV 12.3 H, Immature Gran % (Auto) 0.200, Neut % (Auto) 55.2, Lymph % (Auto) 34.3, Hardin % (Auto) 5.8, Eos % (Auto) 3.6, Baso % (Auto) 0.9, Absolute Neuts (auto) 4.5, Absolute Lymphs (auto) 2.80, Nucleated RBC % 0 07/23/20 02:36: Sodium 139, Potassium 3.7, Chloride 104, Carbon Dioxide 30.0, Anion Gap 5, BUN 20 H, Creatinine 0.98, Estim Creat Clear Calc 67.53, Est GFR (MDRD) Af Amer 77, Est GFR (MDRD) Non-Af 64, BUN/Creatinine Ratio 20.3 H, Glucose 127 H, Calcium 9.4, Troponin I < 0.015 07/23/20 05:15: Troponin I < 0.015 07/23/20 05:58: POC Glucose 149 H 07/23/20 08:20: Troponin I < 0.015 07/23/20 11:34: POC Glucose 173 H Current Medications Acetaminophen (Acetaminophen 325 Mg Tablet) 650 mg PO Q6H PRN PRN PRN Reason: Pain Score 1-10/Temp > 100.7 F Aspirin (Aspirin 81 Mg Tab.Chew) 81 mg PO DAILY@0800 [facility] Last Admin: 07/23/20 05:59 Dose: 81 mg Documented by: Atorvastatin Calcium (Atorvastatin Calcium 80 Mg Tablet) 80 mg PO QHS [facility] Clonazepam (Clonazepam 1 Mg Tablet) 2 mg PO TID [facility] Last Admin: 07/23/20 13:20 Dose: 2 mg Documented by: Clopidogrel Bisulfate (Clopidogrel Bisulfate 75 Mg Tablet) 75 mg PO QHS [facility] Dextrose (Dextrose 50%-Water 25 Gm/50 Ml Disp.Syrin) 0 gm IV X1 PRN; Protocol PRN Reason: Hypoglycemia Glucagon (Glucagon 1 Mg/Ml Syringe) 1 mg IM .X1 PRN PRN Reason: Hypoglycemia Sodium Chloride () 250 mls @ 15 mls/hr IV .[id number] PRN PRN Reason: Saline Flush Sodium Chloride () 250 mls @ 15 mls/hr IV .[id number] PRN PRN Reason: Additional IVPB Infusion Insulin Human Lispro (Insulin Lispro 100 Unit/Ml Insuln.Pen) 0 unit SC Q6 [facility]; Protocol Last Admin: 07/23/20 11:40 Dose: 1 u Documented by: Morphine Sulfate (Morphine 2 Mg/Ml Syringe) 2 mg IV Q3H PRN PRN PRN Reason: Pain Score 6-10/10 Nicotine (Nicotine 21 Mg Patch) 21 mg TD DAILY [facility] Last Admin: 07/23/20 13:18 Dose: 21 mg Documented by: Non-Formulary Medication (Lamotrigine [Lamictal]) 25 mg PO DAILY [facility] Ondansetron HCl (Ondansetron 4 Mg/2 Ml Vial) 4 mg IV Q8H PRN PRN PRN Reason: NAUSEA/VOMITING Pantoprazole Sodium (Pantoprazole Sodium 40 Mg Tablet) 40 mg PO DAILY [facility] Last Admin: 07/23/20 13:18 Dose: 40 mg Documented by: Propranolol HCl (Propranolol 40 Mg Tablet) 40 mg PO BID [facility] Last Admin: 07/23/20 13:17 Dose: Not Given Documented by: Quetiapine Fumarate (Quetiapine 25 Mg Tablet) 50 mg PO QHS [facility] Senna/Docusate Sodium (Senna/Docusate Sodium 1 Tablet) 2 tablet PO BID PRN PRN PRN Reason: Constipation Sodium Chloride (0.9% Saline Lock 10 Ml Syringe) 10 - 40 ml IV UD PRN PRN Reason: SALINE FLUSH Last Admin: 07/23/20 06:02 Dose: 10 ml Documented by: Discharge Diet: Low fat/ Low Cholesterol, 2000 mg Sodium Diet Discharge Activity: Return to Normal Activity Disposition: Home Patient Condition:: Stable Medical Necessity - Tobacco Use Smoking Status: Former smoker Tobacco Use: Cigarettes Meaningful Use Info Meaningful Use Diagnoses (Choose all that apply): None applicable OBSV E&M: 21454 Observation care discharge
[2020-07-23] MEDS: Pantoprazole Sodium 40 MG Tablet PO (13:18)
--- NOTE | 2020-07-23 13:53 | PHA.DC.MR ---
Pharmacy Service has performed discharge medication reconciliation for this patient. The patient's discharge medication list was reviewed for discrepancies and discrepancies were resolved. Home Medications Clonazepam [Klonopin] 2 mg PO TID 06/15/14 Quetiapine Fumarate [Seroquel] 50 mg PO QHS 06/15/14 Propranolol HCl [Inderal (Beta Valencia)] 40 mg PO BID 01/18/16 Clopidogrel Bisulfate [Plavix] 75 mg PO QHS 07/03/16 Glimepiride [Amaryl] 4 mg PO DAILY 01/09/17 Atorvastatin Calcium [Lipitor] 80 mg PO QHS 03/29/18 Acetaminophen [Tylenol Tablet] 650 mg PO Q4H PRN PRN tablet 03/31/18 Pantoprazole Sodium [Protonix] 40 mg PO DAILY #30 tab 03/31/18 Lamotrigine [Lamictal] 25 mg PO DAILY 06/08/18 Alogliptin Benzoate [Alogliptin] 25 mg PO DAILY 09/30/19 Naproxen [Naprosyn] 500 mg PO BID #14 tab 12/22/19 Aspirin [Aspirin, Baby] 81 mg PO DAILY@0800 07/23/20 Ciprofloxacin/Ciprofloxa HCl [Ciprofloxacin ER 500 mg Tablet] 500 mg PO Q12H PRN PRN 07/23/20
== END 2020-07-23 13:10 | disposition home or self-care (01) ==
LOC: ED 03:20 → PCU 03:43
PROVIDERS: Admitting Provider Hospitalist; Emergency Provider Emergency Medicine; PCP Family Medicine; Referring Provider Hospitalist
DX: R07.89 Other chest pain (principal); I10 Essential (primary) hypertension; E78.5 Hyperlipidemia, unspecified; F32.9 Major depressive disorder, single episode, unspecified; F10.20 Alcohol dependence, uncomplicated; I69.354 Hemiplegia and hemiparesis following cerebral infarction affecting left non-dominant side; E11.40 Type 2 diabetes mellitus with diabetic neuropathy, unspecified; E11.65 Type 2 diabetes mellitus with hyperglycemia; Z79.899 Other long term (current) drug therapy; Z79.82 Long term (current) use of aspirin; Z79.02 Long term (current) use of antithrombotics/antiplatelets; Z87.891 Personal history of nicotine dependence
CPT/HCPCS: 36415; 71045; 78452; 80048; 82962; 84484; 85025; 93005; 93017; 99218; 99285; A9500; A4216; G0378; J2785

== ENCOUNTER → 2020-09-01 17:20 | Outpatient (CLI) | payer MEDICAID, SELFPAY ==
[2020-07-23 04:10] VITALS: BMI 24.7
== END ==
PROVIDERS: PCP Family Medicine
DX: Z01.812 Encounter for preprocedural laboratory examination (principal)
CPT/HCPCS: 87635; C9803; U0003

== ENCOUNTER 2020-09-24 16:55 | Emergency (ER) | payer MEDICAID, SELFPAY ==
[2020-07-23 04:10] VITALS: BMI 24.7
[2020-09-24 16:56] VITALS: BP 158/93; PULSE 78; RESP 16; TEMP 35.8; O2SAT 99; BMI 25.2
--- NOTE | 2020-09-24 17:04 | EKG12_ITS ---
Test Reason : CP Blood Pressure : / mmHG Vent. Rate : 063 BPM Atrial Rate : 063 BPM P-R Int : 124 ms QRS Dur : 080 ms QT Int : 412 ms P-R-T Axes : 042 064 063 degrees QTc Int : 421 ms Normal sinus rhythm with sinus arrhythmia Nonspecific ST abnormality Abnormal ECG Confirmed by NYASIA PETERSEN, LILA ([id number]), legal editor DENISSE DEMARCO ([id number]) on 09/28/2020 12:29:39 P M Referred By: VIRGIE SOTO Confirmed By:LAKEISHA MURRELL MD
--- NOTE | 2020-09-24 18:26 | ED.DCSUM_ITS ---
- ER Visit Summary Date of Service: 09/24/20 Chief Complaint: [Left arm pain] History of Present Illness: The patient is a 50 F [presents to the emergency department complaint of left arm pain that started this morning when she woke up. Patient is not sure if she slept wrong possibly. She describes the pain as sharp and stabbing and rates it about an 8 out of 10. At rest really does not have much pain the pain comes on more when she moves the arm. Patient is right- hand dominant. She denies any chest pain or shortness of breath. Patient has history of diabetes, hypertension, high cholesterol, pancreatitis and remote history of alcohol abuse.] Physical Examination: [HEENT-PERRLA, EOMI. Cranial nerves II through XII grossly intact. TMs clear. Mucous membranes moist. No adenopathy. Cardiovascular-regular rate and rhythm without murmur or ectopy Lungs-clear to auscultation, chest wall stable without crepitus or subcu emphysema Abdomen-normoactive bowel sounds, soft, nontender, no rebound or rigidity, no peritoneal signs. Extremities-intact ?4, normal range of motion, normal pulses, atraumatic. Left arm-patient has tenderness to palpation over the left distal bicep medially that seems to reproduce her pain. There is no soft tissue swelling or ecchymosis or bruising noted. There is no edema. No ropes or cords palpated. She is neurovascular intact distally. She has normal pulses.] Test Results: [2 view x-rays of the left humerus were interpreted by myself as normal. Radiology in agreement. ] Emergency Department Course and Treatment: [Patient given an Larry wrap and a sling] Treatment Plan: [We will be given a prescription for naproxen and [place] for severe pain. Patient advised to follow-up with her primary care physician within next 3 to 5 days. At this point etiology of her pain is unclear although it seems musculoskeletal. I do not feel her pain is consistent with an acute coronary syndrome. Given her history and her exam I do not feel her exam is consistent with a DVT. Patient advised to return if worsening pain increased swelling, chest pain, shortness of breath, or condition should worsen anyway.] Disposition: [Discharged home in stable condition] Impression: [Left arm pain-etiology uncertain] This note was generated with [employer] software. It may contain incorrect words, spelling, and punctuation that were not noted in review of the chart prior to signing ED Disposition - Plan for ED Patient: Referrals: Ran Dill MD [Primary Care Provider] -
--- NOTE | 2020-09-24 18:40 | RAD_ITS ---
STUDY: X-RAY - LEFT HUMERUS REASON FOR EXAM: Female, 50 years old. left arm pain due to sleeping on it wrong per patient TECHNIQUE: 3 view(s) of the humerus. COMPARISON: None. FINDINGS: Normal visualized humerus. There is no demonstrated fracture or osseous destructive process. There is no demonstrated soft tissue abnormality. RAD/Humerus min 2 Views IMPRESSION: Normal x-ray examination of the humerus. Electronically Signed: Sanchez El MD at 19:08 EST , Service support ,
[2020-09-24 19:43] VITALS: BP 127/89; PULSE 86; RESP 16; O2SAT 100
--- NOTE | 2020-09-24 19:58 | ED.DEP ---
ED Disposition - Plan for ED Patient: Instructions: ED Muscle Strain, Extremity Prescriptions: Naproxen [Naprosyn] 500 mg PO BID PRN #20 tab Prescription Printed Hydrocodone Bitart/Apap 5-325 [[place] 5MG-325MG] 1 tab PO Q4H PRN PRN 2 Days #10 tab PRN Reason: Pain Prescription Printed Referrals: Ran Dill MD [Primary Care Provider] - 3-5 Days
== END 2020-09-24 20:09 | disposition home or self-care (01) ==
LOC: ED 18:50
PROVIDERS: Emergency Provider Emergency Medicine; PCP Family Medicine
DX: M79.602 Pain in left arm (principal); I10 Essential (primary) hypertension; E11.9 Type 2 diabetes mellitus without complications; E78.00 Pure hypercholesterolemia, unspecified; Z79.82 Long term (current) use of aspirin; Z79.84 Long term (current) use of oral hypoglycemic drugs; Z79.899 Other long term (current) drug therapy; Z72.0 Tobacco use
CPT/HCPCS: 73060; 93005; 99283

== ENCOUNTER → 2020-10-01 | Outpatient (CLI) | payer MEDICAID, SELFPAY ==
[2020-07-23 04:10] VITALS: BMI 24.7
[2020-09-24 16:56] VITALS: BMI 25.2
== END | disposition home or self-care (01) ==
LOC: LABSPEC 10-15 11:44
PROVIDERS: PCP Family Medicine
DX: Z01.812 Encounter for preprocedural laboratory examination (principal); Z20.822 Contact with and (suspected) exposure to COVID-19
CPT/HCPCS: 87635; C9803; U0005; U0003

== ENCOUNTER 2020-11-15 18:37 | Emergency (ER) | payer MEDICAID, SELFPAY ==
[2020-11-15] VITALS (10 sets, daily range): BP systolic 119–149; BP diastolic 86–97; PULSE 81–90; RESP 12–19; TEMP 36.1–36.3; O2SAT 97–100; BMI 24.3
--- NOTE | 2020-11-15 18:50 | ED.VIS.GEN ---
History of Present Illness Chief Complaint: Neuro S/Sx Informant: Patient Past Medical History - Allergies and Home Meds Allergies/Adverse Reactions: Allergies azithromycin Allergy (Verified 11/15/20 18:42) Diarrhea doxycycline Allergy (Verified 11/15/20 18:42) Rash egg Allergy (Verified 11/15/20 18:42) Unknown Penicillins Allergy (Verified 11/15/20 18:42) Rash Primary Care Physician: Ran Dill MD [Primary Care Provider] - Surgical History: cholecystectomy, hysterectomy, tonsillectomy Smoking Status: Former smoker - Family History Maternal Family History: Reports: Cancer, Heart Disease - Her maternal grand mother had many heart attacks with her first heart attack in her 20s. Also the same maternal grandmother had cardiomegaly and aortic aneurysm rupture. Paternal Family History: Reports: Heart Disease - Her father had multiple heart attacks with his first heart attack in his late 30s. Physical Exam Vital Signs/Narrative: Vital Signs Temp Pulse Resp BP Pulse Ox 11/15/20 18:38 97 F L 88 18 149/86 H 97 ED Disposition - Plan for ED Patient: Referrals: Ran Dill MD [Primary Care Provider] -
[2020-11-15 18:51] LABS: Bedside Glucose 175 mg/dL (70-110)
--- NOTE | 2020-11-15 18:57 | CT_ITS ---
EXAMINATION : Head CT w/out contrast HISTORY : stroke COMPARISON : 10/15/2020 TECHNIQUE : Multiple contiguous axial images were obtained from the skull base to the vertex without intravenous contrast. A radiation dose optimization technique was used for this scan. FINDINGS : There is no evidence for acute intracranial hemorrhage, mass effect, or midline shift. There is no extra-axial fluid collection. There are periventricular white matter changes consistent with chronic microvascular ischemic disease. There is normal cobb-white differentiation, without CT evidence of acute ischemia or infarct. There is encephalomalacia in the right parietal lobe. There are craniotomy defects in the right and left temporoparietal bones. The skull base and calvarium are otherwise unremarkable. The orbits are unremarkable. The paranasal sinuses are clear. The mastoid air cells are well-aerated. The soft tissues are unremarkable. CT/STROKE Brain/Head without Cont IMPRESSION: No acute intracranial abnormality. Encephalomalacia in the right parietal lobe may be postsurgical or post-traumatic. Chronic ischemic changes of the brain. Evidence of prior craniotomies in the right and left temporoparietal bones. N.B. : The above information has been verbally conveyed by Dao Mauro MD to Dr. Zen Pena MD, on 11/15/2020 19:17:44 (ET). Electronically Signed: Dao Mauro MD at 19:15 EDT Tel , Service support ,
--- NOTE | 2020-11-15 18:57 | EKG12_ITS ---
Test Reason : STROKE Blood Pressure : / mmHG Vent. Rate : 092 BPM Atrial Rate : 092 BPM P-R Int : 150 ms QRS Dur : 082 ms QT Int : 372 ms P-R-T Axes : 030 043 045 degrees QTc Int : 460 ms Normal sinus rhythm Nonspecific ST abnormality Abnormal ECG Confirmed by ANA PETERSEN, CLARY ([id number]), manager editorial AMANDA DAVILA ([id number]) on 11/18/2020 7:53:38 AM Referred By: OLLIE Confirmed By:CLARY PEREZ MD
--- NOTE | 2020-11-15 18:58 | CT_ITS ---
STUDY: CTA HEAD AND NECK WITH CONTRAST REASON FOR EXAM: Female, 50 years old. Neuro deficit, acute, stroke suspected RADIATION DOSAGE (If Supplied By Facility): CTDIvol = ( 19.34 ) mGy, DLP = ( 666.92 ) mGycm TECHNIQUE: CT angiography was performed with a multi-detector CT scanner. Data acquisition was obtained from the skull base through the vertex following intravenous administration of IV 100mL Isovue-370. MIP images were reconstructed from the axial data set. Post-processing of the angiographic images was performed, with multiplanar reformation and 3D reconstruction. Individualized dose optimization techniques were used for this CT. COMPARISON: 10/26/2011 FINDINGS: Normal petrous portion of the left internal carotid artery. Nonvisualization of the petrous portion of the right internal carotid artery. Significantly diminished caliber of the right cavernous carotid artery with a normal supraclinoid bifurcation. Mildly diminished caliber of the left cavernous carotid artery with a normal supraclinoid bifurcation. Faintly noted right A1 segments of the anterior cerebral artery. Faintly noted left A1 segments of the anterior cerebral artery. Normal intact anterior communicating artery (ACOM). Normal bilateral A2 segments of the anterior cerebral arteries. Stable diminished caliber of the right M1 and M2 segments of the middle cerebral arteries, with a normal M1 bifurcation. Normal left M1 and M2 segments of the middle cerebral arteries, with a normal M1 bifurcation. Nonvisualization of the posterior communicating arteries (PCOM). Normal bilateral vertebral arteries. Normal basilar artery with a normal basilar bifurcation. The visualized bilateral superior cerebellar (SCA) arteries are normal. Normal bilateral P1, P2 and visualized P3 segments of the posterior cerebral arteries. There is no demonstrated aneurysm of the [place]. AORTIC ARCH: Normal visualized aortic arch. Normal origins of the brachiocephalic, left common carotid, and left subclavian arteries. RIGHT CAROTID ARTERIES: Normal right common carotid artery (CCA). Mild calcifications at the right common carotid bulb. Nonvisualization of the right internal carotid artery. Normal origin of the right external carotid artery (ECA). LEFT CAROTID ARTERIES: Normal left common carotid artery (CCA). Normal left common carotid bulb. Long segmental irregular mild to moderate narrowing is noted of the left internal carotid artery. Normal origin of the left external carotid artery (ECA). VERTEBRAL ARTERIES: Normal bilateral vertebral arteries. CT/STROKE CTA Head AND Neck W/Con IMPRESSION: Nonvisualization of the right internal carotid artery. Diffuse diminished caliber of the left internal carotid artery at the cervical level and at the cavernous portion.. Diminished caliber of the right middle cerebral artery similar to previous study. N.B. : The above information has been verbally conveyed by Santi Frye DO to Dr. Zen Pena MD, on 11/15/2020 19:39:14 (ET). Electronically Signed: Santi Frye DO at 19:40 EDT Tel [phone], Service support ,
[2020-11-15 19:02] LABS: Absolute Lymphocyte Count 2.84 X10^3/uL (0.83-4.51); Absolute Neutrophil Count 4.3 X10^3/uL (2.0-7.7); Basophil# 0.07 X10^3/uL; Basophil% 0.9 % (0-1); Eosinophil# 0.36 X10^3/uL; Eosinophils% 4.4 % (0-5); Hematocrit 43.7 % (37-47); Hemoglobin 14.5 g/dL (12.0-15.0); Lymphocyte # 2.84 X10^3/ul (4.0); Mean Corp Hgb Conc 33.2 g/dL (32-36); Mean Corpuscular Hgb 30.7 pg (27.0-32.0); Mean Corpuscular Volume 92.6 fL (81-99); Mean Platelet Vol. 11.2 fl (6.2-12.0); Monocyte# 0.51 X10^3/uL; Monocyte% 6.3 % (0-10); NRBC Flagged by Analyzer 0 % (0-5); Neutrophil # 4.32 X10^3/uL (2.7-7.7); Neutrophil % 53.2 % (47-70); Platelet Count 207 K/mm3 (150-450); RBC Distribution Width CV 12.4 % (11.6-14.6); RBC Distribution Width SD 41.9 fl (35.1-43.9); Red Blood Count 4.72 M/mm3 (4.2-5.4); White Blood Count 8.1 K/mm3 (4.4-11.0)
--- NOTE | 2020-11-15 19:10 | ED.VIS.STROK ---
History of Present Illness Chief Complaint: Neuro S/Sx Informant: Patient, Family Onset: Today Context: Sudden Onset Timing: Continuous Quality and Location: Right Arm Weakness, Right Leg Weakness, Slurred Speech Associated Symptoms: Headache. Negative for: Nausea, Vomiting, Chest Pain Narrative: Patient presents with stroke symptoms that occurred today. Patient woke up approximately 1 hour prior to arrival and noticed her speech was slurred. Patient's last known well was 11 AM today. Patient also admits to some weakness in her right arm and leg. Patient also complains of a headache. Patient had recent brain surgery on 10/07/2020 on the left side of her head. Patient denies any nausea or vomiting. Patient denies any fevers or chills. Patient denies any facial weakness. Past Medical History - Allergies and Home Meds Allergies/Adverse Reactions: Allergies azithromycin Allergy (Verified 11/15/20 18:42) Diarrhea doxycycline Allergy (Verified 11/15/20 18:42) Rash egg Allergy (Verified 11/15/20 18:42) Unknown Penicillins Allergy (Verified 11/15/20 18:42) Rash Primary Care Physician: Ran Dill MD [Primary Care Provider] - Surgical History: cholecystectomy, hysterectomy, tonsillectomy Smoking Status: Former smoker - Family History Maternal Family History: Reports: Cancer, Heart Disease - Her maternal grand mother had many heart attacks with her first heart attack in her 20s. Also the same maternal grandmother had cardiomegaly and aortic aneurysm rupture. Paternal Family History: Reports: Heart Disease - Her father had multiple heart attacks with his first heart attack in his late 30s. Review of Systems General: Denies: Chills, Fever Eyes: Denies: Visual changes - bilaterally, Blurred Vision - bilaterally, Diplopia ENT: Denies: Rhinorrhea, Sore throat Cardiovascular: Denies: Chest pain, Palpitations Respiratory: Denies: Dyspnea, Cough Gastrointestinal: Denies: Nausea, Vomiting Genitourinary: Denies: Dysuria, Hematuria Musculoskeletal: Denies: Neck pain, Back pain Skin: Denies: Rash, Abscess Neurological: Reports: Headache, Weakness Allergy: Denies: Uticaria, Swelling of the mouth STROKE Vital Signs/Narrative: Vital Signs Temp Pulse Resp BP Pulse Ox 11/15/20 19:07 90 16 136/92 H 100 11/15/20 19:02 98 11/15/20 18:45 88 19 H 141/97 H 98 11/15/20 18:38 97 F L 88 18 149/86 H 97 Inital Vital Signs reviewed: Yes General: Well nourished, Well developed Head: Normocephalic, Atraumatic ENT: Moist mucous membranes Neck: Supple, No JVD Cardiovascular: Regular rate, Regular rhythm Respiratory: No distress, CTA bilaterally Abdomen: Soft, Nontender, Nondistended, Normal bowel sounds Neurological: Alert, Oriented x3 Diagnostic/Tx/Re-eval CT scan of the brain was obtained. There is no acute intracranial abnormality. There is no bleeding noted. This was interpreted by the radiologist and reviewed by myself. CTA of the head and neck was obtained. There is nonvisualization of the right internal carotid artery. There is increased stenosis of the left internal carotid artery. This was interpreted by the radiologist and reviewed by myself. Chest X-Ray - ED: 1 View, Read by ED Physician, Read by Radiologist, Normal - Rhythm Strip Rhythm Strip: Sinus Rhythm Rate: 92 Ectopy: None - EKG Initial EKG Interpretation: Sinus Rhythm, Non-Specific ST Changes - Medical Decision Making Stroke Team Activated: Yes Reviewed Inclusion/Exclusion criteria: Yes Was Patient considered for Endovascular Intervention?: Yes IV Alteplase (t-PA) Administered: No Stroke neurologist from [facility] examined the patient remotely. He did not feel patient is a candidate for TPA because of her recent surgery. He recommended admitting the patient to the hospital unless there is a large vessel occlusion. When the CTA of the head and neck was reported, case was discussed with him again. Patient will be transferred to [facility] to the emergency department there. Patient and family understood and were agreeable with the plan. All questions were answered. Critical care time (excluding procedures): 30-74 minutes ED Disposition - Plan for ED Patient: Disposition: [facility] Diagnosis: Stroke Referrals: Ran Dill MD [Primary Care Provider] -
[2020-11-15 19:13] LABS: Prothrombin Time (Protime)PT. 12.9 SECONDS (11.7-14.9)
[2020-11-15 19:14] LABS: Partial Thromboplast Time 25.6 Seconds (24.1-36.2)
[2020-11-15 19:25] LABS: Anion Gap 5 (5-15); BUN 16 mg/dL (7-18); BUN/Creat Ratio 17.7 RATIO (10-20); Chloride 104 mmol/L (98-107); EST Glomerular Filtration Rate 70 mL/min (>60); Est Glom Filt Rate - Afr Amer 85 mL/min (>60); Estimated Creatinine Clearance 70.78 ml/min; Glucose 185 mg/dL (74-106); Potassium 3.8 mmol/L (3.5-5.1); Sodium Level 136 mmol/L (136-145)
--- NOTE | 2020-11-15 19:57 | RAD_ITS ---
STUDY: X-RAY CHEST REASON FOR EXAM: Female, 50 years old. Neuro deficit, acute, stroke suspected TECHNIQUE: Frontal view COMPARISON: 07/23/2020. FINDINGS: The lungs are clear and expanded. There is no demonstrated pleural abnormality. Normal size heart. Normal mediastinum and rupal. Normal visualized pulmonary arteries. Normal visualized aortic arch and descending thoracic aorta. Normal visualized thoracic spine. Normal visualized ribs, clavicles, and shoulders. There is no demonstrated abnormality of the visualized soft tissue structures of the upper abdomen. RAD/Chest 1 View IMPRESSION: Normal x-ray examination of the chest. Electronically Signed: Santi Frye DO at 20:43 EDT Tel [phone], Service support ,
[2020-11-15] MEDS: LORazepam 1 MG Tablet PO (21:06)
== END 2020-11-15 21:32 | disposition short-term general hospital (02) ==
PROVIDERS: Emergency Provider Emergency Medicine; PCP Family Medicine
DX: I63.9 Cerebral infarction, unspecified (principal); R47.81 Slurred speech; G81.91 Hemiplegia, unspecified affecting right dominant side; I65.22 Occlusion and stenosis of left carotid artery; I67.82 Cerebral ischemia; E11.9 Type 2 diabetes mellitus without complications; Z79.84 Long term (current) use of oral hypoglycemic drugs; Z79.02 Long term (current) use of antithrombotics/antiplatelets; Z79.82 Long term (current) use of aspirin; Z79.899 Other long term (current) drug therapy; Z87.891 Personal history of nicotine dependence
CPT/HCPCS: 70450; 70496; 70498; 71045; 80048; 82962; 84484; 85025; 85610; 85730; 93005; 99285; Q9967; A4216

== ENCOUNTER 2021-03-14 17:30 | Emergency (ER) | payer MEDICAID, SELFPAY ==
[2020-11-15 18:43] VITALS: BMI 24.3
[2021-03-14 17:31] VITALS: BP 158/97; PULSE 105; RESP 18; TEMP 36.7; O2SAT 98; BMI 24.1
[2021-03-14 18:37] VITALS: BP 144/84; PULSE 90; RESP 15; O2SAT 96
[2021-03-14] MEDS: Ondansetron 4 MG/2 ML Vial IV (18:38)
[2021-03-14] MEDS: Morphine 4 MG/ML Syringe IV (18:38)
[2021-03-14] MEDS: 0.9% Normal Saline 1,000 ML 1000 ML IV (18:38)
[2021-03-14 19:07] LABS: AST(SGOT) 18 U/L (15-37); Alanine Aminotransfer ALT/SGPT 40 U/L (13-56); Albumin, Serum 3.8 g/dL (3.2-5.0); Alkaline Phosphatase 81 U/L (45-117); Anion Gap 5 (5-15); BUN 13 mg/dL (7-18); BUN/Creat Ratio 13.6 RATIO (10-20); Bilirubin, Direct 0.08 mg/dL (0.00-0.30); Calcium,Total 8.8 mg/dL (8.5-10.1); Chloride 106 mmol/L (98-107); Creatinine, Serum 0.96 mg/dL (0.55-1.02); EST Glomerular Filtration Rate 66 mL/min (>60); Est Glom Filt Rate - Afr Amer 79 mL/min (>60); Estimated Creatinine Clearance 68.93 ml/min; Globulin 4.2 g/dL (2.2-4.2); Glucose 160 mg/dL (74-106); Lipase 97 U/L (73-393); Potassium 3.7 mmol/L (3.5-5.1); Sodium Level 139 mmol/L (136-145)
[2021-03-14 19:25] LABS: Absolute Lymphocyte Count 2.78 X10^3/uL (0.83-4.51); Absolute Neutrophil Count 5.8 X10^3/uL (2.0-7.7); Basophil% 1.1 % (0-1); Eosinophil# 0.23 X10^3/uL; Eosinophils% 2.4 % (0-5); Hematocrit 43.2 % (37-47); Lymphocyte # 2.78 X10^3/ul (0.83-4.51); Lymphocyte % 29.4 % (19-41); Mean Corp Hgb Conc 32.4 g/dL (32-36); Mean Corpuscular Hgb 30.6 pg (27.0-32.0); Mean Corpuscular Volume 94.3 fL (81-99); Mean Platelet Vol. 11.9 fl (6.2-12.0); Monocyte# 0.55 X10^3/uL; Monocyte% 5.8 % (0-10); NRBC Flagged by Analyzer 0 % (0-5); Neutrophil # 5.76 X10^3/uL (2.7-7.7); Platelet Count 171 K/mm3 (150-450); RBC Distribution Width CV 12.8 % (11.6-14.6); RBC Distribution Width SD 43.8 fl (35.1-43.9); Red Blood Count 4.58 M/mm3 (4.2-5.4); White Blood Count 9.5 K/mm3 (4.4-11.0)
[2021-03-14 19:50] VITALS: BP 138/76; PULSE 75; RESP 19; O2SAT 97
[2021-03-14] MEDS: DiphenhydrAMINE 50 MG/ML Syringe 25 MG IV (20:28)
[2021-03-14] MEDS: Metoclopramide 10 MG/2 ML Vial IV (20:28)
--- NOTE | 2021-03-14 20:51 | EX.ED.DYSGE1 ---
HPI History of Present Illness Chief Complaint: Nausea/Vomiting Informant: patient Onset/Context/Timing Onset: Yesterday Context: Gradual Onset Current Severity: Moderate Maximum Severity: Moderate Narrative Narrative: Patient presents with epigastric abdominal pain. She is a history of pancreatitis and states this feels similar. 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 She had gradual onset of periumbilical and epigastric abdominal pain. She denies vomiting or diarrhea. [facility] Medical History Diabetic neuropathy DM2 (diabetes mellitus, type 2) Hemiplegia and hemiparesis following cerebral infarction affecting left non-dominant side HLD (hyperlipidemia) HTN (hypertension) Tobacco dependence due to cigarettes Home Medications clonazepam [Klonopin] 2 mg PO TID 06/15/14 [History Last Taken 07/22/20] quetiapine 75 mg PO QHS 06/15/14 [History Last Taken 07/22/20] clopidogrel 75 mg PO QHS 07/03/16 [History Last Taken 07/22/20] glimepiride 4 mg PO DAILY 01/09/17 [History Last Taken 07/22/20] atorvastatin 80 mg PO QHS 03/29/18 [History Last Taken 07/22/20] acetaminophen [Tylenol] 650 mg PO Q4H PRN PRN tablet 03/31/18 [Rx Last Taken Unknown] pantoprazole 40 mg PO DAILY #30 tab 03/31/18 [Rx Last Taken 07/22/20] lamotrigine [Lamictal] 25 mg PO DAILY 06/08/18 [History Last Taken Unknown] alogliptin 25 mg PO DAILY 09/30/19 [History Last Taken 07/22/20] naproxen 500 mg PO BID #14 tab 12/22/19 [Rx Last Taken Unknown] aspirin 81 mg PO DAILY@0800 07/23/20 [History Last Taken 07/22/20] naproxen 500 mg PO BID PRN #20 tab 09/24/20 [Rx Last Taken Unknown] diphenhydramine HCl [Benadryl Allergy] 25 mg PO Q6H PRN #10 tab 03/14/21 [Rx Last Taken Unknown] metoclopramide HCl [Reglan] 10 mg PO Q6H PRN #10 tab 03/14/21 [Rx Last Taken Unknown] Allergy/AdvReac Type Severity Reaction Status Date / Time azithromycin Allergy Diarrhea Verified 03/14/21 17:33 doxycycline Allergy Rash Verified 03/14/21 17:33 egg Allergy Unknown Verified 03/14/21 17:33 Penicillins Allergy Rash Verified 03/14/21 17:33 Surgical History History of hysterectomy Social History Smoking Status: Current every day smoker tobacco type: cigarettes ROS ROS ED Constitutional Constitutional ED: Denies chills or fever(s) Eyes Eyes: Denies change in vision ENT ENT ED: Denies sore throat Cardiovascular Cardiovascular: Denies chest pain Respiratory/Chest Respiratory/Chest: Denies cough or dyspnea Gastrointestinal Gastrointestinal: Reports abdominal pain and nausea; Denies diarrhea or vomiting Genitourinary Genitourinary ED: Denies dysuria Musculoskeletal Musculoskeletal: Denies back pain Integumentary Denies rash Neurologic Neurologic: Denies headache(s) or weakness Psychiatric Psychiatric: Denies anxiety or depression Endocrine Endocrinology: Denies polydipsia or polyuria Allergic/Immunologic Allergic/Immunologic ED: Denies urticaria EXAM Physical Exam Const Vital Signs: 03/14/21 17:31 03/14/21 18:37 03/14/21 19:50 Temperature 98.1 F Temperature Source Temporal Pulse Rate 105 H 90 75 Respiratory Rate 18 15 19 H Blood Pressure 158/97 H 144/84 H 138/76 H Blood Pressure Mean 117 104 96 Pulse Ox 98 96 97 Oxygen Delivery Method Room Air Room Air Room Air 03/14/21 21:02 Temperature Temperature Source Pulse Rate 79 Respiratory Rate 16 Blood Pressure 130/77 H Blood Pressure Mean Pulse Ox 98 Oxygen Delivery Method Positive well nourished and well developed General Appearance ED: well developed HEENT Reports normocephalic and head/scalp atraumatic Eyes PERRL and EOMs intact bilaterally Neck supple Chest Wall inspection of chest normal and palpation of chest normal Resp normal respiratory effort and clear to auscultation bilaterally Cardio regular rate and regular rhythm GI Auscultation: hypoactive bowel sounds Palpation: soft and tender epigastric; Negative for guarding or rebound tenderness present Extremity normal to inspection Neuro oriented x3 and no sensory deficits noted Sensorium / Orientation: alert Motor Exam: strength 5/5 throughout Psych mental status grossly normal Skin no rashes or lesions noted MDM MDM MDM Narrative Medical decision making narrative: Patient was given morphine and Zofran along with IV fluids. Labs are obtained. Lab Data Attestation: I reviewed the patient's lab results. Labs: Laboratory Results - last 24 hr 03/14/21 03/14/21 18:41 18:41 WBC 9.5 RBC 4.58 Hgb 14.0 Hct 43.2 MCV 94.3 MCH 30.6 MCHC 32.4 RDW Std Deviation 43.8 RDW Coeff of Arlene 12.8 Plt Count 171 MPV 11.9 Immature Gran % (Auto) 0.300 Neut % (Auto) 61.0 Lymph % (Auto) 29.4 [place] % (Auto) 5.8 Eos % (Auto) 2.4 Baso % (Auto) 1.1 H Absolute Neuts (auto) 5.8 Absolute Lymphs (auto) 2.78 Nucleated RBC % 0 Sodium 139 Potassium 3.7 Chloride 106 Carbon Dioxide 28.0 Anion Gap 5 BUN 13 Creatinine 0.96 Estim Creat Clear Calc 68.93 Est GFR (MDRD) Af Amer 79 Est GFR (MDRD) Non-Af 66 BUN/Creatinine Ratio 13.6 Glucose 160 H Calcium 8.8 Total Bilirubin 0.40 Direct Bilirubin 0.08 AST 18 ALT 40 Alkaline Phosphatase 81 Total Protein 8.0 Albumin 3.8 Globulin 4.2 Lipase 97 Treatment and Re-Evaluation Comments:: Due to continued nausea patient is given a dose of Reglan and Benadryl. On repeat evaluation patient reports feeling significantly improved. Lab work is reviewed with her. LFTs and lipase are normal at this time. My suspicion is that she has a gastritis from her alcohol consumption. She is already on Protonix and will continue this. She is given prescriptions for Reglan and Benadryl at home to help control nausea. Discharge Plan Triage Chief Complaint: Nausea/Vomiting ED Provider: Mary Joseph Dx/Rx/DC Orders Clinical Impression: Gastritis Instructions: ED Gastritis (Adult) Prescriptions: New metoclopramide HCl [Reglan] 10 mg tablet 10 mg PO Q6H PRN (Reason: nausea and vomiting) Qty: 10 RF: 0 diphenhydramine HCl [Benadryl Allergy] 25 mg tablet 25 mg PO Q6H PRN (Reason: nausea and vomiting) Qty: 10 RF: 0 No Action quetiapine 25 MG tablet 75 mg PO QHS RF: 0 clonazepam [Klonopin] 2 MG tablet 2 mg PO TID RF: 0 clopidogrel 75 MG tablet 75 mg PO QHS RF: 0 glimepiride 2 MG tablet 4 mg PO DAILY RF: 0 atorvastatin 80 MG tablet 80 mg PO QHS RF: 0 acetaminophen [Tylenol] 325 MG tablet 650 mg PO Q4H PRN PRN (Reason: pain/fever) RF: 0 pantoprazole 40 MG tablet 40 mg PO DAILY Qty: 30 RF: 0 lamotrigine [Lamictal] 25 MG tablet 25 mg PO DAILY RF: 0 alogliptin 25 mg tablet 25 mg PO DAILY RF: 0 naproxen 500 MG tablet 500 mg PO BID Qty: 14 RF: 0 aspirin 81 MG tablet,chewable 81 mg PO DAILY@0800 RF: 0 naproxen 500 MG tablet 500 mg PO BID PRN Qty: 20 RF: 0 Primary Care Provider: Ran Dill Referrals: Ran Dill MD [Primary Care Provider] - 3-5 Days if not improving Disposition Disposition: Home, Self Care Discharge Date/Time: 03/14/21 21:03
[2021-03-14 21:02] VITALS: BP 130/77; PULSE 79; RESP 16; O2SAT 98
== END 2021-03-14 21:03 | disposition home or self-care (01) ==
PROVIDERS: Emergency Provider Emergency Medicine; PCP Family Medicine
DX: K29.70 Gastritis, unspecified, without bleeding (principal); I69.354 Hemiplegia and hemiparesis following cerebral infarction affecting left non-dominant side; I10 Essential (primary) hypertension; E11.40 Type 2 diabetes mellitus with diabetic neuropathy, unspecified; E78.5 Hyperlipidemia, unspecified; F17.210 Nicotine dependence, cigarettes, uncomplicated; Z79.82 Long term (current) use of aspirin; Z79.84 Long term (current) use of oral hypoglycemic drugs; Z79.899 Other long term (current) drug therapy
CPT/HCPCS: 80048; 80076; 83690; 85025; 96361; 96374; 96375; 99283; J7030; A4216; J2405

== ENCOUNTER 2021-05-21 15:00 | Outpatient (RCR) | payer MEDICAID, SELFPAY ==
--- NOTE | 2020-10-28 11:52 | HP.SP.AD_ITS ---
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 Following OR for uncomplicated left EDAS, while recovering inpatient, she had severe expressive aphasia, dysphagia, and new right sided upper extremity weakness. While inpatient she was treated for dysphagia, severe expressive aphasia, dysarthria. At discharge the recommended diet grade was IDDSI5; liquid consistency IDDSI; 0. Smoking Status: Former smoker Hx Smoking: Yes Hx Smoking Cessation Date: 07/18/20 Hx Tobacco Use: No Hx Smoking Exposure: No - Pain Is pain an issue with your current prescribed condition?: No Patient Allergies - Allergies Allergies azithromycin Allergy (Verified 09/24/20 16:57) Diarrhea doxycycline Allergy (Verified 09/24/20 16:57) Rash egg Allergy (Verified 09/24/20 16:57) Unknown Penicillins Allergy (Verified 09/24/20 16:57) Rash Objective Dysarthira/Motor - Observation Observation of Apraxia of Speech: Yes - unable to produce z after model Voice Handicap Index (VHI) - VHI VHI Administered: Yes VHI: Patient completed the Voice Handicap Index, which is a 30 item, self administered questionnaire that asks an individual to describe their voice and the effects of their voice on their life. Three subscales cover the areas of functional, emotional, and physical aspects of the voice disorders. Points from the questions can be combined to assign a total score, or they can be combined by subscale. Results for the VHI are as follows: Date: 10/28/20 - VHI Test Functional: 35 Physical: 33 Emotional: 34 Total Severity Rating: Severe (61-120) Other Impressions - Comments Other impressions -: [place] DYSARTHRIA ASSESSMENT TOOL (N-LEXI). INTELLIGIBILITY: PERCEIVED INTELLIGIBILITY: intelligible with some difficulty. NOTABLE CHARACTERISTICS: hypophonia, hypernasality, nasal emissions, slow speech rate, percentage int elligible (~50-75%), reduced utterance length. RESPIRATION: OBSERVED RESPIRATION CHARACTERISTICS: thoracic breathing, shallow breathing, irregular / inconsistent posture. BREATHING RATE: 18 breaths per minute (normal: 12-18). PHONATION: LOUDNESS: variable. PITCH: low. QUALITY: adequate. MAXIMUM PHONATION TIME (MPT): AVERAGE MPT: 5.4 seconds. MPT INTERPRETATION: critical region: adult females 14.3-40.0. ABILITY TO SUSTAIN VOLUME: unable. PITCH GLIDE: ABILITY: inconsistent. PITCH RANGE: reduced. PITCH CONTROL: phonation breaks, change in voice quality. RESONANCE: OBSERVATION: hypernasal. WORD PRODUCTION (HYPONASALITY): no abnormalities observed. WORD PRODUCTION (HYPERNASALITY): abnormal. NASAL FLUTTER TEST: abnormal. PROSODY: OBSERVATION: unable to vary stress / intonation. PROSODY IMITATION: normal. ARTICULATION: RATE OF SPEECH:slow. PHRASE LENGTH: short. GROPING BEHAVIORS: present. DIADOCHOKINETIC (DDK) RATE (5 SEC): 2. DDK INTERPRETATION: poor; 1-3 repetitions; normal ~ 12-15 repetitions. Nara presents with moderate-severe non fluent expressive aphasia and moderate-severe dysarthria s/p left EDAS. Expressive aphasia characterized by effortful, halting verbal output. Dysarthria characterized by moderately-severely reduced articulatory accuracy, coordination, rate, and intelligibility with reduced breath support and restricted pitch range resulting in monotone speech. Demonstrated groping behavior when asked to produce z; unable to do so after model and multiple attempts. Plan - Frequency Frequency: 1x/Week Duration: 12 Months - Prognosis Prognosis: Good - Goal #1-5 Goal #1: Patient will participate in further cognitive-linguistic assessment with goal adjustment to be completed pending findings. Goal #2: Patient will demonstrate improved vocal quality/intonation/articulation for sustained vocalizations at the conversational level to communicate social need in functional living environment. Goal #3: Patient will develop functional, cogntivie-linguistic based skills and utilize compensatory strategies to communicate wants and needs effectively to different conversational partners, maintain safety and participate socially in functional lliving environment. Goal #4: Patient will recall/implement use of word retrieval and/ or clear speech strategies during structured language/ speech tasks in 80% of opportunities given max verbal cues to improve verbal expression. Education - Patient Instruction Patient Education: Diagnosis Person Taught: Patient, Family Teaching Method: Discussion
--- NOTE | 2021-02-01 13:32 | HP.OTEVAL ---
Patient's Visit Information JJ BUTLER is a 50 year old F, referred to Occupational Therapy by VIRGIE SOTO, with a diagnosis of . Date of Evaluation: 02/01/21 Occupational Therapist: Jana Mcdaniels - Subjective Pt presents alone providing information; Pt states having had 2nd stroke in July 2020 (previous stroke in 2010 w/ residual weakness of left side- stating she doesn't think she fully achieved strength); She has had two neuro surgeries completed by [facility]- last stroke was hemorrhagic impacting speech and R side; Pt is R handed and states she is having difficulty w/ IADL tasks, coordination and general strength; She states when L arm is fatigued, it starts to shake and she sometimes has burning sensation in dorsal side of hand; denies changes in her vision- has bifocals but does not want to use them because the cause migraines; She likes to take photographs and scrapbook as hobbies. - ADLs Kitchen: Open jars, Lift gallon of milk Comments: difficulty w/ strength- but cooks or she goes out to eat often Household: Vacuum, Sweep/mop Comments: has to assist Miscellaneous: Carry shopping bag Comments: Pt reports having difficulty w/ sweeping, carrying items, holding a broom/dustpan; she doesn't do a lot of the cooking. 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 - Objective No skin abnormalities; pt grossly WFL for ROM and strength; no LOB upon eval- able to sit/stand w/o arms rest x4; - ROM ROM Comments: grossly WFL; slow FM coordination - Strength Shoulder: L flexion 3+/5 Hospital Orderly: R: 60 L 38 Lateral Pinch: R 8 L 8 Tripod Pinch: R 8 L 8 Strength Comments: RUE grossly 4+/5 ; LUE presents w/ generalized weakness 4-/5 - Cognitive Skills Follows Directions: Yes - 2 steps Cognitive Comments: Pt having difficulty w/ motor planning and sequencing; difficulty w/ R/L discrimination - In-Hand Manipulation Comments: able to oppose thumb to each finger w/ increased concentration and decreased speed - Quick DASH-Disab of Arm,Shoulder& Hand Quick DASH Score: 56.8175 - Goals Goal:: Pt to increased BUE strength to 5/5 in order to be able to carry items such as groceries w/o difficulty. Goal:: Pt will report overall decreased pain in the LUE to no more than 1/10 at worse during ADLs/IADLs Goal:: Pt will report increased strength/endurance in order to resume household tasks such as sweeping, vacuuming, etc. Goal:: Pt will increase L tea blender strength to 45# and increased R/L pinch strength to 10# in order to resume prior functional tasks. - Rehabilitation Rehabilitation Potential: Good - Anticipated Interventions A/AAROM/PROM, Strengthening, Triggerpoint Release, Sensory Retraining, Joint Protection/Energy Conservation, Fine Motor Coord/Abe, Neuro Reeducation, ADL Training, Home Program - Visit Plan Frequency: 1-2x /Week Duration: 6 Weeks General Plan: Pt presents s/p CVA in July 2020 w/ surgery demonstrating decreased generalized strength/endurance in BUE, LUE more weak than RUE; pt also presenting with intermittent pain in her LUE and burning sensation occasional in L hand; which is impacting her ability to complete ADLs/IADLs independently. Pt would benefit from cont. OT services in order to increase strength, endurance, activity tolerance, decrease pain and provide education in HEP. TEXT: Thank you for the opportunity to evaluate your patient. For Medicare and Medicare HMO plans, please review the plan of care and approve it. It will need to be FAXED BACK to us at [phone] for Medicare purposes. Please let me know if there are questions or concerns regarding this plan of care. Physician Signature: Date:
== END 2021-05-21 19:00 | disposition home or self-care (01) ==
LOC: SP 15:00
PROVIDERS: PCP Family Medicine
DX: R47.01 Aphasia (principal); R47.1 Dysarthria and anarthria; R13.10 Dysphagia, unspecified
CPT/HCPCS: 92507; 92523; 97110; 97162; 97165; 97530

== ENCOUNTER 2021-07-25 18:08 | Emergency (ER) | payer MEDICAID, SELFPAY ==
[2021-07-25 18:09] VITALS: BP 163/98; PULSE 77; RESP 16; TEMP 36; O2SAT 99; BMI 22.6
[2021-07-25 18:20] LABS: Bedside Glucose 137 mg/dL (70-110)
--- NOTE | 2021-07-25 18:22 | ED.RN ---
PT WHEELED BACK FROM TRIAGE AT 1811, GROUP SOCIAL WORKER AWARE OF PT SX AND SX ONSET.
[2021-07-25 18:32] VITALS: BP 136/75; PULSE 74; RESP 16; O2SAT 98
--- NOTE | 2021-07-25 18:32 | CT_ITS ---
We are attempting to reach an attending provider to discuss findings. An addendum with communication details will be sent when the communication is complete. INDICATION: Neuro deficit, acute, stroke suspected EXAMINATION: CT BRAIN - CT Head Stroke Protocol W/O Contrast Injection TECHNIQUE: Multiple axial images were obtained of the head without intravenous contrast. A radiation dose optimization technique was used for this scan. IV Contrast dosage and agent: None. Radiation Dose (provided by facility) CTDIvol (NA ) mGy, DLP ( NA) mGy-cm COMPARISON: 07/17/2020 FINDINGS: HEMISPHERES: 1. The cerebral parenchyma, ventricular system and gyral pattern have normal configuration. Diffuse involutional changes and scattered deep white matter disease noted. 2. There is a subtle encephalomalacic involving the LEFT frontal lobe, and additional area involving the RIGHT parietal lobe consistent with remote infarcts. 3. Additional findings consistent with bilateral temporal craniotomy defects. 4. No mass, hemorrhage, or acute territorial infarct.. CEREBELLUM - BRAINSTEM: The cerebellum, brainstem, basilar and suprasellar cisterns have normal appearance. No Chiari malformation. PITUITARY: Infundibulum and pituitary have normal configuration. Midline structures appear normal. VESSELS: 1. No significant vascular calcifications in the cavernous carotid vessels. 2. No hyperdense vascular signs noted.. ORBITS AND PARANASAL SINUSES: 1. Normal appearance of the bony orbits. Normal appearance of the globes and retrobulbar soft tissues.. 2. Paranasal sinuses are clear. BONY ELEMENTS: No acute bony is noted. Evidence of bilateral craniotomies.. SCALP AND SOFT TISSUES: Normal appearance of the soft tissues of the scalp and the visualized face OTHER: None CT/STROKE Brain/Head without Cont IMPRESSION: 1. Postoperative changes of interval bilateral craniotomy. 2. Mild involutional changes, chronic deep white matter disease and area of LEFT frontal and RIGHT parietal remote infarcts. 3. No mass, hemorrhage, or acute territorial infarct noted. 4. No radiographically significant disease. Electronically Signed: Ernesto Silva MD at 19:02 EST Tel , Service support ,
--- NOTE | 2021-07-25 18:32 | EKG12_ITS ---
Test Reason : NEURO Blood Pressure : / mmHG Vent. Rate : 071 BPM Atrial Rate : 071 BPM P-R Int : 142 ms QRS Dur : 082 ms QT Int : 402 ms P-R-T Axes : 020 031 050 degrees QTc Int : 436 ms Normal sinus rhythm Nonspecific ST and T wave abnormality Abnormal ECG Confirmed by YOUSIF PETERSEN, JUN ([id number]), commissioning editor DENISSE DEMARCO ([id number]) on 07/28/2021 11:10:41 AM Referred By: QUENTIN Confirmed By:JUN DODD MD
[2021-07-25 18:35] VITALS: BMI 22.6
--- NOTE | 2021-07-25 18:45 | RAD_ITS ---
INDICATION: Neuro deficit, acute, stroke suspected EXAMINATION/TECHNIQUE: X-RAY - XR Chest 1 View COMPARISON: 11/15/2020 FINDINGS: LIFE-SUPPORT AND LINES: 1. None HEART AND VESSELS: The cardiac silhouette, pulmonary vasculature have normal appearance. No evidence of congestive failure. LUNGS AND PLEURAL SPACES: Lungs are clear. No focal infiltrate, consolidation or effusions. No evidence of pneumothorax. No pulmonary mass is noted. MEDIASTINUM AND HILAR REGIONS: No masses adenopathy noted. No areas of calcification. Visualized upper airway is normal in position. BONY ELEMENTS: No acute bony changes noted. RAD/Chest 1 View IMPRESSION: 1. No evidence of acute cardiopulmonary process Electronically Signed: Ernesto Silva MD at 19:26 EST Tel , Service support ,
--- NOTE | 2021-07-25 18:56 | ED.VIS.STROK ---
HPI History of Present Illness Chief Complaint: Neuro S/Sx Informant: patient Onset/Context/Timing Onset: Hours (1400) Context: Sudden Onset Timing: Continuous Quality and Location: Positive for Left Face Parasthesia, Left Arm Parasthesia and Left Leg Parasthesia Onset: 1400 Current Severity: Mild Worsened by: Nothing Relieved by: Nothing Associated Symptoms Associated Symptoms: Negative for Headache, Nausea, Vomiting and Chest Pain Narrative Narrative: Patient is a 51-year-old woman with history of type 2 diabetes, alcohol dependence, dyslipidemia, depression and history of right-sided stroke as well as hypertension. She presents with numbness on the left side of her face and body. Started at 1400. She has no other symptoms. She denies headache. She denies double vision or loss of vision. Denies ringing or ears. Denies decreased hearing. Denies trouble with speech or swallowing. She denies chest pain, shortness of breath or cough. She denies orthopnea or PND. She denies dyspnea on exertion. She denies abdominal pain. She denies nausea, vomiting or diarrhea. She denies urologic symptoms. She denies problems ambulating. 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 side HLD (hyperlipidemia) HTN (hypertension) Tobacco dependence due to cigarettes Home Medications clonazepam [Klonopin] 2 mg PO TID 06/15/14 [History Last Taken 07/22/20] quetiapine 75 mg PO QHS 06/15/14 [History Last Taken 07/22/20] clopidogrel 75 mg PO QHS 07/03/16 [History Last Taken 07/22/20] glimepiride 4 mg PO DAILY 01/09/17 [History Last Taken 07/22/20] atorvastatin 80 mg PO QHS 03/29/18 [History Last Taken 07/22/20] acetaminophen [Tylenol] 650 mg PO Q4H PRN PRN tablet 03/31/18 [Rx Last Taken Unknown] pantoprazole 40 mg PO DAILY #30 tab 03/31/18 [Rx Last Taken 07/22/20] lamotrigine [Lamictal] 25 mg PO DAILY 06/08/18 [History Last Taken Unknown] alogliptin 25 mg PO DAILY 09/30/19 [History Last Taken 07/22/20] aspirin 81 mg PO DAILY@0800 07/23/20 [History Last Taken 07/22/20] diphenhydramine HCl [Benadryl Allergy] 25 mg PO Q6H PRN #10 tab 03/14/21 [Rx Last Taken Unknown] Allergy/AdvReac Type Severity Reaction Status Date / Time azithromycin Allergy Diarrhea Verified 07/25/21 18:08 doxycycline Allergy Rash Verified 07/25/21 18:08 egg Allergy Unknown Verified 07/25/21 18:08 Penicillins Allergy Rash Verified 07/25/21 18:08 Surgical History History of hysterectomy Social History (Updated 07/25/21 @ 18:[address] Ramy Ramachandran MD) household members: none Smoking Status: Current every day smoker tobacco type: cigarettes substance use type: does not use ROS ROS ED Constitutional Constitutional ED: Denies chills, fever(s), subjective, sweats or weakness Eyes Eyes: Denies change in vision or diplopia ENT ENT ED: Denies ear pain, rhinorrhea or sore throat Cardiovascular Cardiovascular: Denies chest pain, palpitations, paroxysmal nocturnal dyspnea or racing heartbeat Respiratory/Chest Respiratory/Chest: Denies cough, dyspnea, dyspnea on exertion, paroxysmal nocturnal dyspnea or sputum Gastrointestinal Gastrointestinal: Denies abdominal pain, diarrhea, melena, nausea or vomiting Genitourinary Genitourinary ED: Denies dysuria, hematuria or urinary frequency Musculoskeletal Musculoskeletal: Denies arthralgias, back pain, myalgias or neck pain Neurologic Neurologic: Reports paresthesias; Denies headache(s) or weakness Psychiatric Psychiatric: Denies anxiety or depression Endocrine Endocrinology: Reports other Details: Denies heat or cold intolerance. Denies history of thyroid disease. ; Denies polydipsia, polyphagia or polyuria EXAM Physical Exam Const Vital Signs: 07/25/21 18:09 07/25/21 18:32 07/25/21 18:35 Temperature 96.8 F L Temperature Source Temporal Pulse Rate 77 74 Respiratory Rate 16 16 Blood Pressure 163/98 H 136/75 H Blood Pressure Mean 119 95 Pulse Ox 99 98 Oxygen Delivery Method Room Air Room Air Room Air 07/25/21 19:21 07/25/21 21:21 Temperature Temperature Source Pulse Rate 93 71 Respiratory Rate 16 16 Blood Pressure 128/81 H 138/93 H Blood Pressure Mean 96 108 Pulse Ox 98 98 Oxygen Delivery Method Room Air Room Air Positive well nourished, well developed and unkempt General Appearance ED: unkempt, well developed and NAD HEENT Reports TM's clear and moist mucous membranes atraumatic Nose: other Other Details: Normocephalic. Tympanic Membrane ED: Yes TM's clear Eyes PERRL and EOMs intact bilaterally Eyes Narrative: There is no nystagmus. General Eye ED: Negative for pale conjunctiva or scleral icterus Neck no lymphadenopathy, supple and no JVD Chest Wall inspection of chest normal Resp normal respiratory effort and clear to auscultation bilaterally Cardio no murmurs Rate: regular rate Rhythm: regular rhythm Heart Sounds: S1 normal and S2 normal GI normal to inspection, nondistended, normoactive bowel sounds, soft to palpation, non-tender and non-distended Back/Spine no CVA tenderness Cervical Spine: Negative for cervical spine tenderness Thoracic Spine / Upper Back: Negative for thoracic spinal tenderness Lumbar Spine / Lower Back: Negative for lumbar spinal tenderness Extremity normal to inspection General Extremety ED: Negative for deformity or tenderness General Extremity: Negative for deformity Neuro oriented x3, CN's II-XII intact bilaterally and no sensory deficits noted Stevenson Coma Scale: document GCS findings Spontaneous Obeys Commands Oriented 15 Sensorium / Orientation: alert Motor Exam: strength 5/5 throughout Psych Appearance: unkempt Mood & Affect: depressed Skin no wounds General Skin Exam: Negative for jaundice Lesions: no lesions Rashes: no rashes STROKE Vital Signs/Narrative: Vital Signs Pulse Resp BP Pulse Ox 07/25/21 21:21 71 16 138/93 H 98 07/25/21 19:21 93 16 128/81 H 98 07/25/21 18:32 74 16 136/75 H 98 NIHSS Initial: 1a Level of Consciousness: 0 1b LOC Questions (Score 2 if aphasic/stupor): 0 1c LOC Commands (Only score 1st attempt): 0 2 Best Gaze (If aphasic, use reflexive mvmts.): 0 3 Visual: 0 4 Facial Palsy: 0 5 Motor Arm Right (UN = amputation/fusion): 0 5 Motor Arm Left: 0 6 Motor Leg Right: 0 6 Motor Leg Left: 0 7 Limb ataxia (Only + if out of proportion): 0 8 Sensory (Aphasia/stupor=0 or 1, coma=2): 0 9 Best Language: 0 10 Dysarthria (mute, coma=2, intubated=UN): 0 11 Extinction and Inattention (only scored if +): 0 Total Score: 0 MDM MDM MDM Narrative Medical decision making narrative: Patient does have exophthalmos on the left raises concern for thyroid disease. Because she complains of numbness on the left side stroke order set was initiated. Of note patient states the left side feels different however there is no objective or subjective findings. Patient's CAT scan is unchanged from prior. Blood work is unremarkable. Since patient has no objective findings and reports that there is no difference in sensation of his numbness will discharge home suspect this is due to depression. Lab Data Attestation: I reviewed the patient's lab results. Labs: Laboratory Results - last 24 hr 07/25/21 07/25/21 07/25/21 18:16 18:25 18:25 WBC Cancelled Corrected WBC Cancelled RBC Cancelled Hgb Cancelled Hct Cancelled MCV Cancelled MCH Cancelled MCHC Cancelled RDW Std Deviation Cancelled RDW Coeff of Arlene Cancelled Plt Count Cancelled MPV Cancelled Immature Gran % (Auto) Cancelled Neut % (Auto) Cancelled Lymph % (Auto) Cancelled Rapides % (Auto) Cancelled Eos % (Auto) Cancelled Baso % (Auto) Cancelled Absolute Neuts (auto) Cancelled Absolute Lymphs (auto) Cancelled Total Counted Cancelled Neutrophils % (Manual) Cancelled Band Neutrophils % Cancelled Lymphocytes % (Manual) Cancelled Monocytes % (Manual) Cancelled Eosinophils % (Manual) Cancelled Basophils % (Manual) Cancelled Metamyelocytes % Cancelled Myelocytes % Cancelled Promyelocytes % Cancelled Blast Cells % Cancelled Plasma Cell % (Manual) Cancelled Other Cells % Cancelled Nucleated RBC % Cancelled Nucleated RBCs/100 WBC Cancelled Differential Comment Cancelled Diff Path Review Cancelled Hypersegmented Neuts Cancelled Atypical Lymphocytes Cancelled Reactive Lymphocytes Cancelled Smudge Cells Cancelled Toxic Granulation Cancelled Toxic Vacuolation Cancelled Dohle Bodies Cancelled Steven Rods Cancelled Platelet Estimate Cancelled Plt Morphology Comment Cancelled RBC Morphology Cancelled Polychromasia Cancelled Hypochromasia Cancelled Poikilocytosis Cancelled Basophilic Stippling Cancelled Anisocytosis Cancelled Microcytosis Cancelled Macrocytosis Cancelled Spherocytes Cancelled Sickle Cells Cancelled Target Cells Cancelled Tear Drop Cells Cancelled Ovalocytes Cancelled Stomatocytes Cancelled [place] Bodies Cancelled [place] Cells Cancelled Bite Cells Cancelled Crenated Cell Cancelled Acanthocytes (Spur) Cancelled Rouleaux Cancelled Schistocytes Cancelled PT Cancelled INR Cancelled APTT Cancelled Sodium Potassium Chloride Carbon Dioxide Anion Gap BUN Creatinine Estim Creat Clear Calc Est GFR (MDRD) Af Amer Est GFR (MDRD) Non-Af BUN/Creatinine Ratio Glucose Calcium Troponin I High Sens POC Glucose 137 H 07/25/21 07/25/21 07/25/21 18:25 19:32 20:15 WBC 8.5 Corrected WBC RBC 4.56 Hgb 14.1 Hct 42.8 MCV 93.9 MCH 30.9 MCHC 32.9 RDW Std Deviation 42.5 RDW Coeff of Arlene 12.3 Plt Count 183 MPV 11.4 Immature Gran % (Auto) 0.200 Neut % (Auto) 52.9 Lymph % (Auto) 37.8 [place] % (Auto) 5.1 Eos % (Auto) 3.1 Baso % (Auto) 0.9 Absolute Neuts (auto) 4.5 Absolute Lymphs (auto) 3.20 Total Counted Neutrophils % (Manual) Band Neutrophils % Lymphocytes % (Manual) Monocytes % (Manual) Eosinophils % (Manual) Basophils % (Manual) Metamyelocytes % Myelocytes % Promyelocytes % Blast Cells % Plasma Cell % (Manual) Other Cells % Nucleated RBC % 0 Nucleated RBCs/100 WBC Differential Comment Diff Path Review Hypersegmented Neuts Atypical Lymphocytes Reactive Lymphocytes Smudge Cells Toxic Granulation Toxic Vacuolation Dohle Bodies Steven Rods Platelet Estimate Plt Morphology Comment RBC Morphology Polychromasia Hypochromasia Poikilocytosis Basophilic Stippling Anisocytosis Microcytosis Macrocytosis Spherocytes Sickle Cells Target Cells Tear Drop Cells Ovalocytes Stomatocytes [place] Bodies Bina Cells Bite Cells Crenated Cell Acanthocytes (Spur) Rouleaux Schistocytes PT INR APTT Sodium Cancelled Cancelled Potassium Cancelled Cancelled Chloride Cancelled Cancelled Carbon Dioxide Cancelled Cancelled Anion Gap Cancelled Cancelled BUN Cancelled Cancelled Creatinine Cancelled Cancelled Estim Creat Clear Calc Cancelled Cancelled Est GFR (MDRD) Af Amer Cancelled Cancelled Est GFR (MDRD) Non-Af Cancelled Cancelled BUN/Creatinine Ratio Cancelled Cancelled Glucose Cancelled Cancelled Calcium Cancelled Cancelled Troponin I High Sens Cancelled Cancelled POC Glucose 07/25/21 07/25/21 07/25/21 20:33 20:53 20:55 WBC 8.4 Corrected WBC RBC 4.44 Hgb 13.8 Hct 41.2 MCV 92.8 MCH 31.1 MCHC 33.5 RDW Std Deviation 41.6 RDW Coeff of Arlene 12.3 Plt Count 169 MPV 11.3 Immature Gran % (Auto) 0.400 Neut % (Auto) 51.6 Lymph % (Auto) 38.4 [place] % (Auto) 5.7 Eos % (Auto) 3.0 Baso % (Auto) 0.9 Absolute Neuts (auto) 4.4 Absolute Lymphs (auto) 3.24 Total Counted Neutrophils % (Manual) Band Neutrophils % Lymphocytes % (Manual) Monocytes % (Manual) Eosinophils % (Manual) Basophils % (Manual) Metamyelocytes % Myelocytes % Promyelocytes % Blast Cells % Plasma Cell % (Manual) Other Cells % Nucleated RBC % 0 Nucleated RBCs/100 WBC Differential Comment Diff Path Review Hypersegmented Neuts Atypical Lymphocytes Reactive Lymphocytes Smudge Cells Toxic Granulation Toxic Vacuolation Dohle Bodies Steven Rods Platelet Estimate Plt Morphology Comment RBC Morphology Polychromasia Hypochromasia Poikilocytosis Basophilic Stippling Anisocytosis Microcytosis Macrocytosis Spherocytes Sickle Cells Target Cells Tear Drop Cells Ovalocytes Stomatocytes [place] Bodies Bina Cells Bite Cells Crenated Cell Acanthocytes (Spur) Rouleaux Schistocytes PT 12.4 INR 1.0 APTT 27.1 Sodium 143 Potassium 3.9 Chloride 109 H Carbon Dioxide 27.0 Anion Gap 7 BUN 18 Creatinine 0.82 Estim Creat Clear Calc 79.82 Est GFR (MDRD) Af Amer 94 Est GFR (MDRD) Non-Af 78 BUN/Creatinine Ratio 21.8 H Glucose 127 H Calcium 9.0 Troponin I High Sens 4 POC Glucose Radiography Diagnostic Testing: Clinical Impression(s) from Imaging Studies Brain CT 07/25/21 18:32 IMPRESSION: 1. Postoperative changes of interval bilateral craniotomy. 2. Mild involutional changes, chronic deep white matter disease and area of LEFT frontal and RIGHT parietal remote infarcts. 3. No mass, hemorrhage, or acute territorial infarct noted. 4. No radiographically significant disease. Electronically Signed: Ernesto Silva MD at 19:02 EST Tel , Service support , ADDENDUM: 07/25/21 1909 IMPRESSION: 1. Postoperative changes of interval bilateral craniotomy. 2. Mild involutional changes, chronic deep white matter disease and area of LEFT frontal and RIGHT parietal remote infarcts. 3. No mass, hemorrhage, or acute territorial infarct noted. 4. No radiographically significant disease. N.B. : The above Results were Read Back by Ernesto Silva MD to Ramy Ramachandran MD, and understanding confirmed on 07/25/2021 19:02:17 (ET). Electronically Signed: Ernesto Silva MD at 19:02 EST Tel , Service support , Chest X-Ray 07/25/21 18:45 IMPRESSION: 1. No evidence of acute cardiopulmonary process Electronically Signed: Ernesto Silva MD at 19:26 EST Tel , Service support , Stroke Documentation Questions Stroke Team Activated: No Reviewed Inclusion/Exclusion criteria: No Was Patient considered for Endovascular Intervention?: No IV Alteplase (t-PA) Administered: No No contraindications for IV Alteplase (t-PA) administration.: No Discharge Plan Triage Chief Complaint: Neuro S/Sx ED Provider: Ramy Ramachandran Dx/Rx/DC Orders Clinical Impression: Paresthesia and pain of left extremity Instructions: ED Paraesthesias Prescriptions: No Action quetiapine 25 MG tablet 75 mg PO QHS RF: 0 clonazepam [Klonopin] 2 MG tablet 2 mg PO TID RF: 0 clopidogrel 75 MG tablet 75 mg PO QHS RF: 0 glimepiride 2 MG tablet 4 mg PO DAILY RF: 0 atorvastatin 80 MG tablet 80 mg PO QHS RF: 0 acetaminophen [Tylenol] 325 MG tablet 650 mg PO Q4H PRN PRN (Reason: pain/fever) RF: 0 pantoprazole 40 MG tablet 40 mg PO DAILY Qty: 30 RF: 0 lamotrigine [Lamictal] 25 MG tablet 25 mg PO DAILY RF: 0 alogliptin 25 mg tablet 25 mg PO DAILY RF: 0 aspirin 81 MG tablet,chewable 81 mg PO DAILY@0800 RF: 0 diphenhydramine HCl [Benadryl Allergy] 25 mg tablet 25 mg PO Q6H PRN (Reason: nausea and vomiting) Qty: 10 RF: 0 Primary Care Provider: Ran Dill Referrals: Ran Dill MD [Primary Care Provider] - 3-5 Days Disposition Disposition: Home, Self Care
[2021-07-25 19:21] VITALS: BP 128/81; PULSE 93; RESP 16; O2SAT 98
[2021-07-25 19:39] LABS: Absolute Neutrophil Count 4.5 X10^3/uL (2.0-7.7); Basophil# 0.08 X10^3/uL; Basophil% 0.9 % (0-1); Eosinophil# 0.26 X10^3/uL; Eosinophils% 3.1 % (0-5); Hematocrit 42.8 % (37-47); Hemoglobin 14.1 g/dL (12.0-15.0); Lymphocyte % 37.8 % (19-41); Mean Corp Hgb Conc 32.9 g/dL (32-36); Mean Corpuscular Hgb 30.9 pg (27.0-32.0); Mean Corpuscular Volume 93.9 fL (81-99); Mean Platelet Vol. 11.4 fl (6.2-12.0); Monocyte# 0.43 X10^3/uL; Monocyte% 5.1 % (0-10); NRBC Flagged by Analyzer 0 % (0-5); Neutrophil # 4.48 X10^3/uL (2.7-7.7); Neutrophil % 52.9 % (47-70); Platelet Count 183 K/mm3 (150-450); RBC Distribution Width CV 12.3 % (11.6-14.6); RBC Distribution Width SD 42.5 fl (35.1-43.9); Red Blood Count 4.56 M/mm3 (4.2-5.4); White Blood Count 8.5 K/mm3 (4.4-11.0)
[2021-07-25 21:08] LABS: Prothrombin Time (Protime)PT. 12.4 SECONDS (11.7-14.9)
[2021-07-25 21:09] LABS: Partial Thromboplast Time 27.1 Seconds (24.1-36.2)
[2021-07-25 21:09] LABS: Absolute Lymphocyte Count 3.24 X10^3/uL (0.83-4.51); Absolute Neutrophil Count 4.4 X10^3/uL (2.0-7.7); Basophil# 0.08 X10^3/uL; Basophil% 0.9 % (0-1); Eosinophil# 0.25 X10^3/uL; Hematocrit 41.2 % (37-47); Hemoglobin 13.8 g/dL (12.0-15.0); Lymphocyte # 3.24 X10^3/ul (0.83-4.51); Lymphocyte % 38.4 % (19-41); Mean Corp Hgb Conc 33.5 g/dL (32-36); Mean Corpuscular Hgb 31.1 pg (27.0-32.0); Mean Corpuscular Volume 92.8 fL (81-99); Mean Platelet Vol. 11.3 fl (6.2-12.0); Monocyte# 0.48 X10^3/uL; Monocyte% 5.7 % (0-10); NRBC Flagged by Analyzer 0 % (0-5); Neutrophil # 4.35 X10^3/uL (2.7-7.7); Neutrophil % 51.6 % (47-70); Platelet Count 169 K/mm3 (150-450); RBC Distribution Width CV 12.3 % (11.6-14.6); RBC Distribution Width SD 41.6 fl (35.1-43.9); Red Blood Count 4.44 M/mm3 (4.2-5.4); White Blood Count 8.4 K/mm3 (4.4-11.0)
[2021-07-25 21:21] VITALS: BP 138/93; PULSE 71; RESP 16; O2SAT 98
[2021-07-25 21:29] LABS: Anion Gap 7 (5-15); BUN 18 mg/dL (7-18); BUN/Creat Ratio 21.8 RATIO (10-20); Chloride 109 mmol/L (98-107); Creatinine, Serum 0.82 mg/dL (0.55-1.02); EST Glomerular Filtration Rate 78 mL/min (>60); Est Glom Filt Rate - Afr Amer 94 mL/min (>60); Estimated Creatinine Clearance 79.82 ml/min; Glucose 127 mg/dL (74-106); Potassium 3.9 mmol/L (3.5-5.1); Sodium Level 143 mmol/L (136-145); Troponin-I HS 4 pg/mL (3.0-54.0)
[2021-07-25 22:24] VITALS: BP 139/75; PULSE 60; RESP 16; O2SAT 97
[2021-07-25 22:31] VITALS: BP 135/96; PULSE 67; RESP 18; TEMP 36.9; O2SAT 98
== END 2021-07-25 22:39 | disposition home or self-care (01) ==
PROVIDERS: Emergency Provider Emergency Medicine; PCP Family Medicine
DX: R20.2 Paresthesia of skin (principal); I69.354 Hemiplegia and hemiparesis following cerebral infarction affecting left non-dominant side; I10 Essential (primary) hypertension; F10.20 Alcohol dependence, uncomplicated; Y90.9 Presence of alcohol in blood, level not specified; E11.40 Type 2 diabetes mellitus with diabetic neuropathy, unspecified; E78.5 Hyperlipidemia, unspecified; F32.A Depression, unspecified; F17.210 Nicotine dependence, cigarettes, uncomplicated; Z79.82 Long term (current) use of aspirin; Z79.02 Long term (current) use of antithrombotics/antiplatelets; Z79.84 Long term (current) use of oral hypoglycemic drugs; Z79.899 Other long term (current) drug therapy
CPT/HCPCS: 36415; 70450; 71045; 80048; 82962; 84484; 85025; 85610; 85730; 93005; 99283

== ENCOUNTER 2021-09-21 20:37 | Emergency (ER) | payer MEDICAID, SELFPAY ==
[2021-09-21 20:38] VITALS: PULSE 99; RESP 24; TEMP 36.8; O2SAT 98; BMI 23.5
[2021-09-21 20:49] VITALS: BMI 23.2
--- NOTE | 2021-09-21 21:20 | EDS_ITS ---
HPI History of Present Illness Chief Complaint: Neuro S/Sx Informant: patient Onset/Context/Timing Onset: Month(s) (1) Context: Gradual Onset Timing: Continuous Quality: Burning pain Location: Entire left lower extremity down to the foot Current Severity: Moderate Maximum Severity: Severe Worsened by: Sitting and using her left leg to do things like push herself to a stand Associated Symptoms Associated Symptoms: Left buttock/back pain Narrative Narrative: Patient with gradual onset of burning pain down her left lower extremity. It has been there for a month this is the first visit to a [place] hospital practitioner for this. Initially she states that she feels like things are little weak but admits that she is mostly limited by pain with regards to using it. Sitting is the most uncomfortable position. She denies any numbness. Denies any injuries or recent illness. She has a history of scoliosis no other back issues. She denies any abdominal pain, bowel or bladder dysfunction or any other issues urinating, saddle anesthesias. [facility] Medical History Diabetic neuropathy DM2 (diabetes mellitus, type 2) Hemiplegia and hemiparesis following cerebral infarction affecting left non- dominant side HLD (hyperlipidemia) HTN (hypertension) Tobacco dependence due to cigarettes Home Medications clonazepam [Klonopin] 2 mg PO TID 06/15/14 [History Last Taken 07/22/20] quetiapine 75 mg PO QHS 06/15/14 [History Last Taken 07/22/20] clopidogrel 75 mg PO QHS 07/03/16 [History Last Taken 07/22/20] glimepiride 4 mg PO DAILY 01/09/17 [History Last Taken 07/22/20] atorvastatin 80 mg PO QHS 03/29/18 [History Last Taken 07/22/20] acetaminophen [Tylenol] 650 mg PO Q4H PRN PRN tablet 03/31/18 [Rx Last Taken Unknown] pantoprazole 40 mg PO DAILY #30 tab 03/31/18 [Rx Last Taken 07/22/20] lamotrigine [Lamictal] 25 mg PO DAILY 06/08/18 [History Last Taken Unknown] alogliptin 25 mg PO DAILY 09/30/19 [History Last Taken 07/22/20] aspirin 81 mg PO DAILY@0800 07/23/20 [History Last Taken 07/22/20] diphenhydramine HCl [Benadryl Allergy] 25 mg PO Q6H PRN #10 tab 03/14/21 [Rx Last Taken Unknown] gabapentin 300 mg PO TID #89 cap 09/21/21 [Rx Last Taken Unknown] tramadol 50 mg PO Q4H PRN PRN 3 Days #15 tab 09/21/21 [Rx Last Taken Unknown] Allergy/AdvReac Type Severity Reaction Status Date / Time azithromycin Allergy Diarrhea Verified 07/25/21 18:08 doxycycline Allergy Rash Verified 07/25/21 18:08 egg Allergy Unknown Verified 07/25/21 18:08 Penicillins Allergy Rash Verified 07/25/21 18:08 Surgical History History of hysterectomy Social History household members: none Smoking Status: Current every day smoker tobacco type: cigarettes substance use type: does not use ROS ROS ED Constitutional Constitutional ED: Denies chills or fever(s) Gastrointestinal Gastrointestinal: Denies abdominal pain, constipation, fecal incontinence, nausea or vomiting Genitourinary Genitourinary ED: Reports other Details: no urinary retention ; Denies abdominal discomfort or urinary incontinence Musculoskeletal Musculoskeletal: Reports as per HPI and back pain; Denies neck pain Integumentary Denies rash or wounds Neurologic Neurologic: Denies headache(s), paresthesias or weakness EXAM Physical Exam Const Vital Signs: 09/21/21 20:38 09/21/21 21:45 09/21/21 22:15 Temperature 98.2 F Temperature Source Oral Pulse Rate 99 81 90 Respiratory Rate 24 H 15 15 Blood Pressure 113/90 H 113/90 H Blood Pressure Mean 97 97 Pulse Ox 98 98 98 Oxygen Delivery Method Room Air Room Air Room Air Positive well nourished and well developed General Appearance ED: well developed and NAD HEENT Negative for trauma or tenderness Eyes PERRL and EOMs intact bilaterally Neck full ROM and supple Cardio peripheral pulses 2+ throughout GI normal to inspection, nondistended, normoactive bowel sounds, soft to palpation and non-tender Palpation: Negative for pulsatile mass Back/Spine normal to inspection Back/Spine Narrative: Tender in the left sciatic notch and buttock, no other back tenderness. Normal inspection no rash. Lumbar Spine / Lower Back: ROM limited and straight leg raise positive - left at 70 degrees Extremity normal to inspection, full ROM and no pedal edema Neuro oriented x3 and no sensory deficits noted Sensorium / Orientation: alert Motor Exam: strength 5/5 throughout and clonus absent Deep Tendon Reflexes: Rt Patellar (L4): 2+, Lt Patellar (L4): 2+, Rt Ankle (S1): 2+ and Lt Ankle (S1): 2+ Deep Tendon Reflexes Back: Rt Patellar (L4): 2+, Lt Patellar (L4): 2+, Rt Ankle (S1): 2+ and Lt Ankle (S1): 2+ Plantar Reflex: Downgoing: bilateral Psych mental status grossly normal and thought process normal Skin no rashes or lesions noted and no wounds MDM MDM MDM Narrative Medical decision making narrative: Patient symptoms and exam are most consistent with sciatica. I obtained lumbosacral films, they did not show anything acute. This does not rule it out of course. She does not meet any criteria for an emergent MRI, I recommend following up. She has excellent posterior tibial pulses and brisk cap refill bilaterally, and is perfusing well without any sy mptoms of claudication or compartmental asymmetry in her legs. Will place her on gabapentin, with initial dose given here and temporary prescription for tramadol, she states NSAIDs were not working and blood work shows mild increase in her creatinine so I would avoid using NSAIDs with her diabetes as well. Discussed all this with her, labs and x-rays were obtained because she does not describe classic sciatica but I think that is what goes best with her history and exam. I would hold off on steroids since she has diabetes, since the benefits do not outweigh the potential risks of hyperglycemia according to available literature. Lab Data Attestation: I reviewed the patient's lab results. Labs: Laboratory Results - last 24 hr 09/21/21 09/21/21 21:38 21:38 WBC 8.5 RBC 4.70 Hgb 15.0 Hct 43.4 MCV 92.3 MCH 31.9 MCHC 34.6 RDW Std Deviation 42.2 RDW Coeff of Arlene 12.4 Plt Count 183 MPV 11.3 Immature Gran % (Auto) 0.400 Neut % (Auto) 53.6 Lymph % (Auto) 37.1 [place] % (Auto) 6.0 Eos % (Auto) 2.1 Baso % (Auto) 0.8 Absolute Neuts (auto) 4.5 Absolute Lymphs (auto) 3.14 Nucleated RBC % 0 Sodium 141 Potassium 3.8 Chloride 107 Carbon Dioxide 31.0 Anion Gap 3 L BUN 22 H Creatinine 1.37 H Estim Creat Clear Calc 45.99 Est GFR (MDRD) Af Amer 52 L Est GFR (MDRD) Non-Af 43 L BUN/Creatinine Ratio 16.1 Glucose 111 H Calcium 9.1 Radiography Diagnostic Testing: Clinical Impression(s) from Imaging Studies Lumbar Spine X-Ray 09/21/21 21:50 IMPRESSION: No acute findings. Electronically Signed: Susan Nunez MD at 22:37 EST Reading Location ID and State: [id number] / Tel , Service support , Discharge Plan Triage Chief Complaint: Neuro S/Sx ED Provider: Delfino Juan Dx/Rx/DC Orders Clinical Impression: Acute left-sided back pain with sciatica Instructions: ED Sciatica Prescriptions: New tramadol 50 MG tablet 50 mg PO Q4H PRN PRN (Reason: Pain) 3 Days Qty: 15 RF: 0 gabapentin 300 mg capsule 300 mg PO TID Qty: 89 RF: 0 No Action quetiapine 25 MG tablet 75 mg PO QHS RF: 0 clonazepam [Klonopin] 2 MG tablet 2 mg PO TID RF: 0 clopidogrel 75 MG tablet 75 mg PO QHS RF: 0 glimepiride 2 MG tablet 4 mg PO DAILY RF: 0 atorvastatin 80 MG tablet 80 mg PO QHS RF: 0 acetaminophen [Tylenol] 325 MG tablet 650 mg PO Q4H PRN PRN (Reason: pain/fever) RF: 0 pantoprazole 40 MG tablet 40 mg PO DAILY Qty: 30 RF: 0 lamotrigine [Lamictal] 25 MG tablet 25 mg PO DAILY RF: 0 alogliptin 25 mg tablet 25 mg PO DAILY RF: 0 aspirin 81 MG tablet,chewable 81 mg PO DAILY@0800 RF: 0 diphenhydramine HCl [Benadryl Allergy] 25 mg tablet 25 mg PO Q6H PRN (Reason: nausea and vomiting) Qty: 10 RF: 0 Primary Care Provider: Ran Dill Referrals: Ran Dill MD [Primary Care Provider] - Keep Robert appointment (or sooner if able) Disposition Disposition: Home, Self Care
[2021-09-21 21:45] VITALS: BP 113/90; PULSE 81; RESP 15; O2SAT 98
[2021-09-21 21:50] LABS: Absolute Lymphocyte Count 3.14 X10^3/uL (0.83-4.51); Absolute Neutrophil Count 4.5 X10^3/uL (2.0-7.7); Basophil# 0.07 X10^3/uL; Basophil% 0.8 % (0-1); Eosinophil# 0.18 X10^3/uL; Eosinophils% 2.1 % (0-5); Hematocrit 43.4 % (37-47); Lymphocyte # 3.14 X10^3/ul (0.83-4.51); Lymphocyte % 37.1 % (19-41); Mean Corp Hgb Conc 34.6 g/dL (32-36); Mean Corpuscular Hgb 31.9 pg (27.0-32.0); Mean Corpuscular Volume 92.3 fL (81-99); Mean Platelet Vol. 11.3 fl (6.2-12.0); Monocyte# 0.51 X10^3/uL; NRBC Flagged by Analyzer 0 % (0-5); Neutrophil # 4.53 X10^3/uL (2.7-7.7); Neutrophil % 53.6 % (47-70); Platelet Count 183 K/mm3 (150-450); RBC Distribution Width CV 12.4 % (11.6-14.6); RBC Distribution Width SD 42.2 fl (35.1-43.9); White Blood Count 8.5 K/mm3 (4.4-11.0)
--- NOTE | 2021-09-21 21:50 | RAD_ITS ---
STUDY: X-RAY - LUMBAR SPINE REASON FOR EXAM: Female, 51 years old. pain, radicular sx TECHNIQUE: 3 view(s) of the lumbar spine were obtained. COMPARISON: None FINDINGS: Normal lumbar lordosis. Mild lumbar levoscoliosis. There is a normal alignment of the vertebrae. Normal vertebral bodies and endplates. Normal disc space heights. The soft tissue structures are unremarkable. RAD/Lumbar Spine 2 or 3 Views IMPRESSION: No acute findings. Electronically Signed: Susan Nunez MD at 22:37 EST Reading Location ID and State: [id number] / Tel , Service support ,
[2021-09-21 22:07] LABS: Anion Gap 3 (5-15); BUN 22 mg/dL (7-18); BUN/Creat Ratio 16.1 RATIO (10-20); Calcium,Total 9.1 mg/dL (8.5-10.1); Chloride 107 mmol/L (98-107); Creatinine, Serum 1.37 mg/dL (0.55-1.02); EST Glomerular Filtration Rate 43 mL/min (>60); Est Glom Filt Rate - Afr Amer 52 mL/min (>60); Estimated Creatinine Clearance 45.99 ml/min; Glucose 111 mg/dL (74-106); Potassium 3.8 mmol/L (3.5-5.1); Sodium Level 141 mmol/L (136-145)
[2021-09-21 22:15] VITALS: BP 113/90; PULSE 90; RESP 15; O2SAT 98
[2021-09-21] MEDS: Gabapentin 300 MG Capsule PO (22:15)
[2021-09-21 22:57] VITALS: BP 134/87; PULSE 83; RESP 23; O2SAT 98
== END 2021-09-21 23:02 | disposition home or self-care (01) ==
PROVIDERS: Emergency Provider Emergency Medicine; PCP Family Medicine; Visit Provider Emergency Medicine
DX: M54.42 Lumbago with sciatica, left side (principal); I69.354 Hemiplegia and hemiparesis following cerebral infarction affecting left non-dominant side; E11.40 Type 2 diabetes mellitus with diabetic neuropathy, unspecified; E78.5 Hyperlipidemia, unspecified; I10 Essential (primary) hypertension; Z79.02 Long term (current) use of antithrombotics/antiplatelets; F17.210 Nicotine dependence, cigarettes, uncomplicated; Z79.82 Long term (current) use of aspirin; Z79.84 Long term (current) use of oral hypoglycemic drugs; Z79.899 Other long term (current) drug therapy
CPT/HCPCS: 72100; 80048; 85025; 99283; A4216

== ENCOUNTER 2021-10-02 19:51 | Emergency (ER) | payer MEDICAID, SELFPAY ==
[2021-10-02 19:52] VITALS: BP 145/86; PULSE 88; RESP 18; TEMP 36.4; O2SAT 100; BMI 22.6
--- NOTE | 2021-10-02 20:02 | ED.RN ---
REPORTS IS GOING TO MAKE APPOINTMENT MONDAY FOR PHYSICAL THERAPY. AMBULATED TO ROOM WITH NO DIFFICULTIES.
[2021-10-02] MEDS: Ketorolac 15 MG/ML Vial IM (20:29)
--- NOTE | 2021-10-02 20:35 | EDS_ITS ---
HPI <SCOTT Gutierrez - Last Filed: 10/02/21 20:47> History of Present Illness Chief Complaint: Back Narrative Narrative: 51-year-old female with past medical history of presents with left lower extremity pain. Over the last month she has had pain that shoots down her entire left leg with associated tingling. It is worse with weightbearing and walking. She denies back pain pain in her back or buttocks. No injury. There is no saddle anesthesia or bladder/bowel incontinence. No fever or IVDU. She was seen here on 09/21 and had lumbar x-rays and blood work which was unremarkable. She was prescribed gabapentin and tramadol. She states the gabapentin helped the pain but made her too drowsy so she only took 1 dose. She followed up with her PCP who prescribed prednisone which she is currently on and Flexeril which caused a rash. She is also taking Tylenol. She was told not to take NSAIDs due to her kidney function. She denies any new symptoms just states the pain is not improving. Her primary care doctor gave her an order for PT which she has not started yet. [facility] <SCOTT Gutierrez - Last Filed: 10/02/21 20:47> [facility] Medical History Diabetic neuropathy DM2 (diabetes mellitus, type 2) Hemiplegia and hemiparesis following cerebral infarction affecting left non- dominant side HLD (hyperlipidemia) HTN (hypertension) Tobacco dependence due to cigarettes Home Medications clonazepam [Klonopin] 2 mg PO TID 06/15/14 [History Last Taken 07/22/20] quetiapine 75 mg PO QHS 06/15/14 [History Last Taken 07/22/20] clopidogrel 75 mg PO QHS 07/03/16 [History Last Taken 07/22/20] glimepiride 4 mg PO DAILY 01/09/17 [History Last Taken 07/22/20] atorvastatin 80 mg PO QHS 03/29/18 [History Last Taken 07/22/20] acetaminophen [Tylenol] 650 mg PO Q4H PRN PRN tablet 03/31/18 [Rx Last Taken Unknown] pantoprazole 40 mg PO DAILY #30 tab 03/31/18 [Rx Last Taken 07/22/20] lamotrigine [Lamictal] 25 mg PO DAILY 06/08/18 [History Last Taken Unknown] alogliptin 25 mg PO DAILY 09/30/19 [History Last Taken 07/22/20] aspirin 81 mg PO DAILY@0800 07/23/20 [History Last Taken 07/22/20] diphenhydramine HCl [Benadryl Allergy] 25 mg PO Q6H PRN #10 tab 03/14/21 [Rx Last Taken Unknown] gabapentin 300 mg PO TID #89 cap 09/21/21 [Rx Last Taken Unknown] tramadol 50 mg PO Q4H PRN PRN 3 Days #15 tab 09/21/21 [Rx Last Taken Unknown] Allergy/AdvReac Type Severity Reaction Status Date / Time azithromycin Allergy Diarrhea Verified 07/25/21 18:08 doxycycline Allergy Rash Verified 07/25/21 18:08 egg Allergy Unknown Verified 07/25/21 18:08 Penicillins Allergy Rash Verified 07/25/21 18:08 cyclobenzaprine AdvReac Rash Verified 10/02/21 19:56 [From Flexeril] gabapentin AdvReac Other Verified 10/02/21 19:56 Surgical History History of hysterectomy Social History household members: none Smoking Status: Current every day smoker tobacco type: cigarettes substance use type: does not use ROS <SCOTT Gutierrez - Last Filed: 10/02/21 20:47> ROS ED ROS Narrative Constitutional: Negative for fever, chills, malaise. Eyes: Negative for visual change. ENT: Negative for sore throat, ear pain, rhinorrhea. CVS: Negative for palpitations, chest pain, syncope. Respiratory: Negative for shortness of breath, cough, orthopnea. GI: Negative for abdominal pain, nausea, vomiting, diarrhea, constipation, melena, hematochezia. : Negative for dysuria, hematuria or frequency. Neuro: Positive for leg pain, tingling. Negative for headache, motor dysfunction. Skin: Negative for rash, abscess, or wound. Musc: Negative for joint pain, swelling, trauma. Heme: Negative for easy bruising, bleeding, lymphadenopathy. EXAM <SCOTT Gutierrez - Last Filed: 10/02/21 20:47> Physical Exam Narrative Exam Narrative: CONST: Patient sitting in no acute distress. EYES: Normal inspection. NECK: Normal inspection. RESP: No respiratory distress, CTAB. CVS: Regular rate and rhythm, no murmur, no gallop. ABD: Soft and nontender, no guarding or rebound, nondistended. Back: Normal inspection, no midline spinal tenderness, no step off or crepitus. SKIN: Color normal, no rash, warm, dry, intact. EXTREMITIES: Normal appearance, no pedal edema. 5/5 bilateral hip flexion, knee flexion/extension, and DF/PF. Normal sensation to light touch. 2+ dorsalis pedis pulses. Negative straight leg raise bilaterally. NEURO: Oriented x4. PSYCH: Normal affect. Const Vital Signs: 10/02/21 19:52 10/02/21 20:59 Temperature 97.6 F L Temperature Source Temporal Pulse Rate 88 87 Respiratory Rate 18 16 Blood Pressure 145/86 H 131/87 H Blood Pressure Mean 105 Pulse Ox 100 98 Oxygen Delivery Method Room Air <Dr. Zen Pena DO - Last Filed: 10/02/21 23:15> Physical Exam Const Vital Signs: 10/02/21 19:52 10/02/21 20:59 Temperature 97.6 F L Temperature Source Temporal Pulse Rate 88 87 Respiratory Rate 18 16 Blood Pressure 145/86 H 131/87 H Blood Pressure Mean 105 Pulse Ox 100 98 Oxygen Delivery Method Room Air [facility] <SCOTT Gutierrez - Last Filed: 10/02/21 20:47> [facility] Narrative Medical decision making narrative: Patient presents with atraumatic left lower extremity pain that radiates from the thigh down to the foot and occasional paresthesias. She appears well nontoxic. Vital signs are within normal limits. She has no midline spinal tenderness on exam. Abdomen is soft and nontender. Lower extremities appear normal with no deformity or swelling. MSPs are intact and reflexes are 2+ and symmetric. Negative straight leg raise bilaterally. She has no signs or symptoms concerning for cauda equina syndrome or epidural abscess. She had a recent ER visit in the last 2 weeks with negative lumbar spine and blood work so these do not need repeated. She has no indication for emergent MRI. She is currently taking Tylenol and prednisone. I recommended she take the gabapentin at night since it caused her to be drowsy and she should follow-up with PT as referred from her PCP. She was agreeable with this plan and discharged in stable condition. Diagnosis 1. Sciatica, left-sided <Dr. Zen Pena, DO - Last Filed: 10/02/21 23:15> [facility] Narrative Medical decision making narrative: Patient was seen with me. I agree with the history and physical examination. Patient presents with low back pain that became worse today. Patient states that she has a history of back pain. Patient states her pain radiates down her left leg. Patient denies any bowel or bladder changes. Patient denies any saddle anesthesia. Patient denies any recent trauma or injury. Patient was seen here 2 days ago and had x-rays done at that time which were negative. Vital signs are stable. Patient is afebrile. Patient is in no acute distress. Musculoskeletal exam reveals tenderness over the lumbar paraspinal muscles. There is no midline tenderness. There is no bony crepitance or step-off. Strength is 5/5 bilaterally in the lower extremities. There are no sensory deficits noted. Straight leg raises were negative bilaterally. Patient was given a dose of Toradol and Norflex here. Patient was instructed to try taking her gabapentin at nighttime since this makes her drowsy. Patient was instructed to follow-up with her primary care physician in 3 to 5 days for further evaluation and management of her pain. Patient understood and was agreeable with the plan. All questions were answered. Discharge Plan Triage Chief Complaint: Back ED Provider: Eve Ga Dx/Rx/DC Orders Clinical Impression: Sciatica Instructions: ED Sciatica Prescriptions: No Action quetiapine 25 MG tablet 75 mg PO QHS RF: 0 clonazepam [Klonopin] 2 MG tablet 2 mg PO TID RF: 0 clopidogrel 75 MG tablet 75 mg PO QHS RF: 0 glimepiride 2 MG tablet 4 mg PO DAILY RF: 0 atorvastatin 80 MG tablet 80 mg PO QHS RF: 0 acetaminophen [Tylenol] 325 MG tablet 650 mg PO Q4H PRN PRN (Reason: pain/fever) RF: 0 pantoprazole 40 MG tablet 40 mg PO DAILY Qty: 30 RF: 0 lamotrigine [Lamictal] 25 MG tablet 25 mg PO DAILY RF: 0 alogliptin 25 mg tablet 25 mg PO DAILY RF: 0 aspirin 81 MG tablet,chewable 81 mg PO DAILY@0800 RF: 0 diphenhydramine HCl [Benadryl Allergy] 25 mg tablet 25 mg PO Q6H PRN (Reason: nausea and vomiting) Qty: 10 RF: 0 tramadol 50 MG tablet 50 mg PO Q4H PRN PRN (Reason: Pain) 3 Days Qty: 15 RF: 0 gabapentin 300 mg capsule 300 mg PO TID Qty: 89 RF: 0 Primary Care Provider: Ran Dill Referrals: Ran Dill MD [Primary Care Provider] - Activity Restrictions/Additional Instructions: Continue Tylenol and the steroids from your primary care doctor. Take gabapentin at night as it causes drowsiness. If you adapt to this and is helpful you can start also taking a dose during the day. Please use the physical therapy prescription your primary care provided for further evaluation. Come back to the ER for new or worsening symptoms. Disposition Disposition: Home, Self Care Discharge Date/Time: 10/02/21 21:04
[2021-10-02] MEDS: Orphenadrine 60 MG/2 ML Ampul IM (20:47)
[2021-10-02 20:59] VITALS: BP 131/87; PULSE 87; RESP 16; O2SAT 98
== END 2021-10-02 21:04 | disposition home or self-care (01) ==
PROVIDERS: Emergency Provider Physician Assistant; PCP Family Medicine; Visit Provider Physician Assistant
DX: M54.42 Lumbago with sciatica, left side (principal); I69.354 Hemiplegia and hemiparesis following cerebral infarction affecting left non-dominant side; E11.40 Type 2 diabetes mellitus with diabetic neuropathy, unspecified; I10 Essential (primary) hypertension; E78.5 Hyperlipidemia, unspecified; F17.210 Nicotine dependence, cigarettes, uncomplicated; Z79.02 Long term (current) use of antithrombotics/antiplatelets; Z79.82 Long term (current) use of aspirin; Z79.84 Long term (current) use of oral hypoglycemic drugs; Z79.899 Other long term (current) drug therapy
CPT/HCPCS: 96372; 99282

== ENCOUNTER 2021-10-22 16:01 | Emergency (ER) | payer MEDICAID, SELFPAY ==
[2021-10-22 16:02] VITALS: BP 147/96; PULSE 114; RESP 16; RESP 18; TEMP 36.9; O2SAT 98; BMI 22.8
--- NOTE | 2021-10-22 16:26 | EX.ED.DYSGE1 ---
HPI History of Present Illness Chief Complaint: Numb/Ting Informant: patient Onset/Context/Timing Onset: Weeks Context: Gradual Onset Timing: Continuous Quality: Numbness Location: Face Worsened by: Nothing Relieved by: Nothing Narrative Narrative: Patient presents with facial numbness and mild left-sided weakness that has been getting worse over the past week. Patient states it is gradually getting worse. Patient states that her entire face feels numb. Patient states her left upper and lower extremities are weaker than normal. Patient states nothing makes it better and nothing makes it worse. Patient states she has a history of mini strokes in the past and states this feels similar to prior mini strokes. [facility] Medical History (Updated 10/22/21 @ 19:[address] Zen Pena, DO) Diabetic neuropathy DM2 (diabetes mellitus, type 2) Hemiplegia and hemiparesis following cerebral infarction affecting left non-dominant side HLD (hyperlipidemia) HTN (hypertension) Tobacco dependence due to cigarettes Home Medications clonazepam [Klonopin] 2 mg PO TID 06/15/14 [History Last Taken 07/22/20] quetiapine 75 mg PO QHS 06/15/14 [History Last Taken 07/22/20] clopidogrel 75 mg PO QHS 07/03/16 [History Last Taken 07/22/20] glimepiride 4 mg PO DAILY 01/09/17 [History Last Taken 07/22/20] atorvastatin 80 mg PO QHS 03/29/18 [History Last Taken 07/22/20] acetaminophen [Tylenol] 650 mg PO Q4H PRN PRN tablet 03/31/18 [Rx Last Taken Unknown] pantoprazole 40 mg PO DAILY #30 tab 03/31/18 [Rx Last Taken 07/22/20] lamotrigine [Lamictal] 25 mg PO DAILY 06/08/18 [History Last Taken Unknown] alogliptin 25 mg PO DAILY 09/30/19 [History Last Taken 07/22/20] aspirin 81 mg PO DAILY@0800 07/23/20 [History Last Taken 07/22/20] diphenhydramine HCl [Benadryl Allergy] 25 mg PO Q6H PRN #10 tab 03/14/21 [Rx Last Taken Unknown] gabapentin 300 mg PO TID #89 cap 09/21/21 [Rx Last Taken Unknown] tramadol 50 mg PO Q4H PRN PRN 3 Days #15 tab 09/21/21 [Rx Last Taken Unknown] Allergy/AdvReac Type Severity Reaction Status Date / Time azithromycin Allergy Diarrhea Verified 07/25/21 18:08 doxycycline Allergy Rash Verified 07/25/21 18:08 egg Allergy Unknown Verified 07/25/21 18:08 Penicillins Allergy Rash Verified 07/25/21 18:08 cyclobenzaprine AdvReac Rash Verified 10/02/21 19:56 [From Flexeril] gabapentin AdvReac Other Verified 10/02/21 19:56 Family History (Updated 10/22/21 @ 19:[address] Mohini Barahona MD) Grandmother Cancer Heart disease Myocardial infarction Aortic aneurysm rupture Hypertension Father Myocardial infarction Heart disease Hypertension Surgical History (Updated 10/22/21 @ 19:[address] Mohini Barahona MD) History of hysterectomy S/P cholecystectomy S/P tonsillectomy and adenoidectomy Social History household members: none Smoking Status: Current every day smoker tobacco type: cigarettes substance use type: does not use ROS ROS ED Constitutional Constitutional ED: Denies chills or fever(s) Eyes Eyes: Denies blurry vision or change in vision ENT ENT ED: Denies rhinorrhea or sore throat Cardiovascular Cardiovascular: Reports chest pain; Denies palpitations Respiratory/Chest Respiratory/Chest: Denies cough or dyspnea Gastrointestinal Gastrointestinal: Denies nausea or vomiting Genitourinary Genitourinary ED: Denies dysuria or hematuria Musculoskeletal Musculoskeletal: Denies back pain or neck pain Integumentary Denies abscess or rash Neurologic Neurologic: Reports paresthesias; Denies headache(s) or weakness Allergic/Immunologic Allergic/Immunologic ED: Denies mouth swelling or urticaria EXAM Physical Exam Const Vital Signs: 10/22/21 16:02 10/22/21 18:07 Temperature 98.4 F Temperature Source Temporal Pulse Rate 114 H 59 L Respiratory Rate 18 15 Blood Pressure 147/96 H 122/94 H Blood Pressure Mean 113 103 Pulse Ox 98 97 Oxygen Delivery Method Room Air Room Air Positive well nourished and well developed General Appearance ED: well developed and NAD HEENT Reports moist mucous membranes Neck supple and no JVD Resp normal respiratory effort and clear to auscultation bilaterally Cardio regular rate, regular rhythm and no murmurs GI normal to inspection, nondistended, normoactive bowel sounds and non-tender Palpation: soft Extremity normal to inspection General Extremety ED: Negative for edema or tenderness General Extremity: Negative for edema Neuro oriented x3, CN's II-XII intact bilaterally and no sensory deficits noted Sensorium / Orientation: alert Motor Exam: strength 5/5 throughout Psych mental status grossly normal Skin no rashes or lesions noted MDM MDM MDM Narrative Medical decision making narrative: EKG was obtained. On my interpretation, it showed a normal sinus rhythm with a rate of 77. ME interval, QRS interval, and QTc intervals were all normal. [place] was normal. There are nonspecific ST-T wave changes. CBC and comprehensive metabolic profile were obtained and were essentially within normal limits. Lactate was normal. High-sensitivity troponin was normal. CT scan of the brain was obtained. There is no acute intracranial abnormality. This was interpreted by the radiologist and reviewed by myself. Patient was unable to provide a urine specimen. Patient does not want to have a straight cath placed. Patient does not want to provide a urine specimen. Patient wants to go home. Patient was advised that the paresthesias could possibly be coming from a urinary tract infection. Patient states she just wants to go home and does not want any further testing. Patient was instructed to follow-up with her primary care physician in 3 to 5 days. Patient understood and was agreeable with the plan. All questions were answered. Lab Data Labs: Laboratory Results - last 24 hr 10/22/21 10/22/21 10/22/21 16:50 16:50 16:50 WBC 7.5 RBC 4.88 Hgb 15.3 H Hct 46.0 MCV 94.3 MCH 31.4 MCHC 33.3 RDW Std Deviation 43.7 RDW Coeff of Arlene 12.5 Plt Count 178 MPV 10.9 Immature Gran % (Auto) 0.300 Neut % (Auto) 60.1 Lymph % (Auto) 31.1 [place] % (Auto) 4.8 Eos % (Auto) 2.8 Baso % (Auto) 0.9 Absolute Neuts (auto) 4.5 Absolute Lymphs (auto) 2.32 Nucleated RBC % 0 Sodium 139 Potassium 3.9 Chloride 111 H Carbon Dioxide 25.0 Anion Gap 3 L BUN 18 Creatinine 0.95 Estim Creat Clear Calc 66.32 Est GFR (MDRD) Af Amer 80 Est GFR (MDRD) Non-Af 66 BUN/Creatinine Ratio 19.0 Glucose 130 H Lactic Acid 0.8 Calcium 9.3 Total Bilirubin 0.60 AST 17 ALT 34 Alkaline Phosphatase 79 Troponin I High Sens 4 Total Protein 7.5 Albumin 3.6 Globulin 3.9 Albumin/Globulin Ratio 0.9 Radiography Diagnostic Testing: Clinical Impression(s) from Imaging Studies Brain CT 10/22/21 16:32 IMPRESSION: Chronic involutional changes of the brain. Electronically Signed: Sanchez El MD at 18:28 EST Reading Location ID and State: [facility] / [place] , Service support , EKG Initial EKG: Attestation: I personally reviewed and interpreted this EKG as follows: Interpretation: Sinus Rhythm (77), No Acute Injury Pattern and Non-Specific ST Changes Prior EKG tracings: available for review Prior: Unchanged (07/25/2021) Discharge Plan Triage Chief Complaint: Numb/Ting ED Provider: Zen Pena Dx/Rx/DC Orders Clinical Impression: Paresthesias Instructions: ED Paraesthesias Prescriptions: No Action quetiapine 25 MG tablet 75 mg PO QHS RF: 0 clonazepam [Klonopin] 2 MG tablet 2 mg PO TID RF: 0 clopidogrel 75 MG tablet 75 mg PO QHS RF: 0 glimepiride 2 MG tablet 4 mg PO DAILY RF: 0 atorvastatin 80 MG tablet 80 mg PO QHS RF: 0 acetaminophen [Tylenol] 325 MG tablet 650 mg PO Q4H PRN PRN (Reason: pain/fever) RF: 0 pantoprazole 40 MG tablet 40 mg PO DAILY Qty: 30 RF: 0 lamotrigine [Lamictal] 25 MG tablet 25 mg PO DAILY RF: 0 alogliptin 25 mg tablet 25 mg PO DAILY RF: 0 aspirin 81 MG tablet,chewable 81 mg PO DAILY@0800 RF: 0 diphenhydramine HCl [Benadryl Allergy] 25 mg tablet 25 mg PO Q6H PRN (Reason: nausea and vomiting) Qty: 10 RF: 0 tramadol 50 MG tablet 50 mg PO Q4H PRN PRN (Reason: Pain) 3 Days Qty: 15 RF: 0 gabapentin 300 mg capsule 300 mg PO TID Qty: 89 RF: 0 Primary Care Provider: Ran Dill Referrals: Ran Dill MD [Primary Care Provider] - 3-5 Days Disposition Disposition: Home, Self Care
--- NOTE | 2021-10-22 16:32 | EKG12_ITS ---
Test Reason : NUMBNESS Blood Pressure : / mmHG Vent. Rate : 077 BPM Atrial Rate : 077 BPM P-R Int : 124 ms QRS Dur : 080 ms QT Int : 384 ms P-R-T Axes : 028 043 069 degrees QTc Int : 434 ms Normal sinus rhythm Nonspecific ST abnormality Abnormal ECG Confirmed by ANA PETERSEN, CLARY ([id number]), film editor DENISSE DEMARCO ([id number]) on 10/25/2021 11:01:17 AM Referred By: POOL Confirmed By:CLARY PEREZ MD
--- NOTE | 2021-10-22 16:32 | CT_ITS ---
STUDY: CT BRAIN WITHOUT CONTRAST REASON FOR EXAM: Female, 51 years old.Paresthesias Left sided weakness, numbness to face. H/o right sided stroke. RADIATION DOSAGE (If Supplied By Facility): CTDIvol = ( ) mGy, DLP = ( ) mGycm TECHNIQUE: Transaxial CT imaging of the brain was performed without administration of intravenous contrast material. Individualized dose optimization techniques were used for this CT. COMPARISON: Head CT dated July 25, 2021 FINDINGS: Normal soft tissue structures. Reidentification of bilateral frontoparietal craniotomy defects and cortical plate screw constructs. No new skull abnormality is present. There is moderate cerebral atrophy with widening of the extra-axial spaces and ventricular dilatation. There are areas of decreased attenuation within the white matter tracts of the supratentorial brain, consistent with microvascular disease changes. Normal basal ganglia and thalami. Normal brainstem. Normal cerebellum. Focal volume loss in the superior aspect of the left parietal lobe is noted just above the level of beavers radiata. There is no intracranial hemorrhage. There are no findings of an acute ischemic infarction. Normal visualized paranasal sinuses. CT/Brain/Head without Contrast IMPRESSION: Chronic involutional changes of the brain. Electronically Signed: Sanchez El MD at 18:28 EST ,
[2021-10-22 17:04] LABS: Absolute Lymphocyte Count 2.32 X10^3/uL (0.83-4.51); Absolute Neutrophil Count 4.5 X10^3/uL (2.0-7.7); Basophil# 0.07 X10^3/uL; Basophil% 0.9 % (0-1); Eosinophil# 0.21 X10^3/uL; Eosinophils% 2.8 % (0-5); Hemoglobin 15.3 g/dL (12.0-15.0); Lymphocyte # 2.32 X10^3/ul (0.83-4.51); Lymphocyte % 31.1 % (19-41); Mean Corp Hgb Conc 33.3 g/dL (32-36); Mean Corpuscular Hgb 31.4 pg (27.0-32.0); Mean Corpuscular Volume 94.3 fL (81-99); Mean Platelet Vol. 10.9 fl (6.2-12.0); Monocyte# 0.36 X10^3/uL; Monocyte% 4.8 % (0-10); NRBC Flagged by Analyzer 0 % (0-5); Neutrophil # 4.47 X10^3/uL (2.7-7.7); Neutrophil % 60.1 % (47-70); Platelet Count 178 K/mm3 (150-450); RBC Distribution Width CV 12.5 % (11.6-14.6); RBC Distribution Width SD 43.7 fl (35.1-43.9); Red Blood Count 4.88 M/mm3 (4.2-5.4); White Blood Count 7.5 K/mm3 (4.4-11.0)
[2021-10-22 17:19] LABS: ALB/GLOB Ratio 0.9 RATIO (0.9-2.4); AST(SGOT) 17 U/L (15-37); Alanine Aminotransfer ALT/SGPT 34 U/L (13-56); Albumin, Serum 3.6 g/dL (3.2-5.0); Alkaline Phosphatase 79 U/L (45-117); Anion Gap 3 (5-15); BUN 18 mg/dL (7-18); Calcium,Total 9.3 mg/dL (8.5-10.1); Chloride 111 mmol/L (98-107); Creatinine, Serum 0.95 mg/dL (0.55-1.02); EST Glomerular Filtration Rate 66 mL/min (>60); Est Glom Filt Rate - Afr Amer 80 mL/min (>60); Estimated Creatinine Clearance 66.32 ml/min; Globulin 3.9 g/dL (2.2-4.2); Glucose 130 mg/dL (74-106); Potassium 3.9 mmol/L (3.5-5.1); Protein, Total 7.5 g/dL (6.4-8.2); Sodium Level 139 mmol/L (136-145); Troponin-I HS 4 pg/mL (3.0-54.0)
[2021-10-22 17:28] LABS: Lactic Acid 0.8 mmol/L (0.4-1.9)
[2021-10-22 18:07] VITALS: BP 122/94; PULSE 59; RESP 15; O2SAT 97
--- NOTE | 2021-10-22 19:18 | ED.RN ---
PT. REFUSED TO HAVE STRAIGHT CATH DONE. STATES THEY HAVE BEEN HERE SINCE 3;30 AND WANT TO GO HOME. NURSE STATED THEY WOULD SPEAK TO THE DOCTOR AND LET HIM KNOW. DR. LEVIN UPDATED AND SAID HE WOULD GO SPEAK WITH THE PT.
--- NOTE | 2021-10-22 19:22 | ED.RN ---
IV REMOVED PER PT. REQUEST
== END 2021-10-22 19:33 | disposition home or self-care (01) ==
PROVIDERS: Emergency Provider Emergency Medicine; PCP Family Medicine; Visit Provider Emergency Medicine
DX: R20.0 Anesthesia of skin (principal); I69.952 Hemiplegia and hemiparesis following unspecified cerebrovascular disease affecting left dominant side; E11.40 Type 2 diabetes mellitus with diabetic neuropathy, unspecified; E78.5 Hyperlipidemia, unspecified; I10 Essential (primary) hypertension; F17.210 Nicotine dependence, cigarettes, uncomplicated; Z79.02 Long term (current) use of antithrombotics/antiplatelets; Z79.82 Long term (current) use of aspirin; Z79.84 Long term (current) use of oral hypoglycemic drugs; Z79.899 Other long term (current) drug therapy
CPT/HCPCS: 70450; 80053; 83605; 84484; 85025; 93005; 99284

== ENCOUNTER 2021-10-27 21:16 | Outpatient (CLI) | payer MEDICAID, SELFPAY ==
[2021-10-27 21:18] LABS: Mucous, Urine 0 SEEN /hpf (<or=2+); Red Blood Cells-Urine 0 SEEN /hpf (0-5)
[2021-10-27 21:35] LABS: Color, Urine Yellow (Yellow); Glucose, Dipstick Normal (Normal); Ketone-Dipstick Negative (Negative); Leukocyte Esterase-Dipstick 500 /ul (Negative); Nitrite-Dipstick Negative (Negative); Occult Blood-Urine 25 /ul (Negative); Protein-Dipstick Negative (Negative); Specific Gravity, Urine 1.015 (1.002-1.030); Urine Bilirubin Dipstick Negative (Negative); Urine Clarity Sl. Cloudy (Clear); Urine Urobilinogen Normal (Normal)
[2021-10-27 21:58] LABS: Bacteria 2+ /hpf (None Seen); Squamous Epithelial Cells - UA 10-25 SEEN /hpf (5-10)
[2021-10-27 21:59] LABS: White Blood Cells 0-5 SEEN /hpf (0-5)
== END 2021-10-27 23:59 | disposition home or self-care (01) ==
PROVIDERS: PCP Family Medicine; Visit Provider Physician Assistant
DX: R30.9 Painful micturition, unspecified (principal)
CPT/HCPCS: 81001; 87077; 87086; 87088; 87186

== ENCOUNTER 2021-12-20 14:30 | Outpatient (RCR) | payer MEDICAID, SELFPAY ==
--- NOTE | 2021-06-28 15:23 | HP.OTDCSUM ---
It has been my pleasure to treat JJ BUTLER under orders from VIRGIE SOTO, for the diagnosis of for a total of 17 visit(s). Please see the following information for a summary of their discharge status. % Improvement: 75 Objective/Function: pt states she continues to feel fatigue with cleaning her home and is using energy conservation oniel. to assist her in increasing her IND. pt is currently watching her granddaughter every other weekend. Pt states she does get to enjoy her granddaughter. 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 right lateral pinch 8# left 8#. UB MMT right 4+/5 left 4+/5. pt demo good understanding of working out a schedule to conserve energy. Pt demo understanding to continue with her UB t-band HEP. Plan: D/C Discharge Comments: pt was seen for 17 OT visits- therapy instructed pt in a HEP with t-band, energy conservation oniel, to assist in decreasing fatigue. If there are questions or concerns regarding this patient's occupational therapy, please fell free to call me at [phone]. Thank you for the referral of this patient. Sincerely, Mallory Warner, OTR/L, CHT
--- NOTE | 2021-07-15 08:31 | HP.SP.ADRE_ITS ---
Previous/Current Goals - Goals 1-5 Previous Goal #1: Patient will participate in further cognitive-linguistic assessment with goal adjustment to be completed pending findings. Goal 1 Status: MET: Pt participated in informal cognitive evaluation to determine cognitive goals. Previous Goal #2: Patient will demonstrate improved vocal quality/intonation/articulation for sustained vocalizations at the conversational level to communicate social need in functional living en vironment. Goal 2 Status: MET: Pt exhibits appropriate vocal quality and intonation w/articulation errors on two syllable words 5% of the time w/11x self- corrections via implementation of over-exaggerating strategy. Pt functional in recognizing articulation errors and implementing clear speech strategies to improve speech clarity. Previous Goal #3: The pt will complete verbal & visual problem solving and reasoning tasks with 80% accuracy with minimal verbal cues across 3 consecutive sessions. Goal 3 Status: PROGRESSING: Pt completed functional problem solving/reasoning task via using cell phone to find upcoming doctor's appointment and calling to confirm apt. Pt benefited from mod assistance in finding phone number. Pt completed problem solving/reasoning and organizing task via adding therapy, counseling, events, and work trainings to her calendar w/85% acc independently and benefited from min A verbal and logical cues to improve acc to 100%. Previous Goal #4: Patient will recall/implement use of word retrieval and/ or clear speech strategies during structured language/ speech tasks in 80% of opportunities given max verbal cues to improve verbal expression. 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 Pt demonstrated functional word retrieval skills during conversation w/familiar topics. Pt's overall speech intelligibility during conversation w/75-90% acc independently. Pt benefited from min A verbal and phonemic cues to improve articulation of multisyllabic words. Pt reporting speech clarity declines when she gets tired, especially at night time. Previous Goal #5: The pt will utilize learned strategies to recall novel information with 85% accuracy in structured cognitive tasks across 3 consecutive sessions to promote independence completing daily living tasks and improve memory. Goal 5 Status: PROGRESSING: Pt completed immediate, short term, working memory, and problem solving/reasoning task via a card activity of memory matching from a field of 20 w/completing initial task w/41% acc on first trial and 37% acc on second trial w/2 instances of placing cards in different places after flipping them over. Direct education provided re: immediate memory and grouping strategy - Pt expressed understanding. Pt initiated task a third time and located 3/5 she initially grouped given min verbal and logical cues. History - History Date of Eval: 10/26/20 Other Relevant Medical History/Diagnoses/Surgery: Nara Beyer is a 50 yo female w medical comorbidities GERD, history of stroke (2010,2019) due to progressive pacheco pacheco resulting in left sided upper extremity weakness. Following OR for uncomplicated left EDAS, while recovering inpatient, she had severe expressive aphasia, dysphagia, and new right sided upper extremity weakness. While inpatient she was treated for dysphagia, severe expressive aphasia, dysarthria. At discharge the recommended diet grade was IDDSI5; liquid consistency IDDSI; 0. Smoking Status: Current every day smoker Hx Smoking: Yes Hx Smoking Cessation Date: 07/18/20 Hx Tobacco Use: No Hx Smoking Exposure: No - Pain Is pain an issue with your current prescribed condition?: No - Personal Patients Living Arrangements: With Significant Other Patient Allergies - Allergies Allergies azithromycin Allergy (Verified 03/14/21 17:33) Diarrhea doxycycline Allergy (Verified 03/14/21 17:33) Rash egg Allergy (Verified 03/14/21 17:33) Unknown Penicillins Allergy (Verified 03/14/21 17:33) Rash Objective Oral Motor - Oral Status Dentition: Decay Objective Cog/Ling/Com - Test Administered Tmhidtqno-Qhfwhnukpt-Lpruexrswgbeg Assessment Administered: Yes Xotmekgis-Ayfdfzggnk-Hiokbtspvcpou Assessment: Cognitive ? Linguistic skills were evaluated using patient/family interview, skilled observation and informal evaluation through tasks completed by the patient. - Orientation Orientation: Person, Place, Day, Birthdate, Medical Diagnosis - Identification Body parts/objects: WFL - Repetition Words: Mild Sentences: Moderate - Naming Abstract: Mild - Problem Solving Simple: Mild Complex: Moderate - Executive Function Comments Comments: Pt completes mod complex planning, organizing, sequencing, and problem solving/reasoning task via clock drawing w/ 85% acc w/appropriate clock contour, 07/25 numbers w/inappropriate spacing, use of 2 hands however incorrect length and set hands at the wrong. Objective Dysarthira/Motor - Speech Intelligibility Phonemes: Mild Single Words: Mild Phrases: Mild Sentences: Mild Paragraphs: Moderate Conversation: Moderate - Volume Volume: WFL - Sounds Sounds in Error: Initial /z/ --> /s/; Syllable final /zh/ and /J/ ---> /ch/; Pt also observed to have difficulty w/phoneme clusters (ldr in children) as well as the /sk/ S blend. - Consistency w/Multiple Repetitions Words: Moderate - Observation Observation of Apraxia of Speech: Yes - Awareness/Strategy Use Uses strategies intermittently to improve intelligibility or listener's understanding of message: Yes Plan - Plan Plan: Will recommend Pt for weekly outpatient speech therapy to address mod cognitive impairment and mod dysarthria characterized by deficits in immediate and short-term memory, word retrieval, executive functioning, attention, problem solving/reasoning, and difficulty w/articulation of multisyllabic words w/specific phoneme errors. Pt would benefit from training in compensatory strategies for recall and word retrieval, as well as cognitive training to improve cognitive functioning. Without skilled ST services, the Pt is at risk for decreased independence completing daily living tasks. Pt would benefit from oral motor exercises, verbal and visual modeling, verbal/visual and tactile cuing, repeated practice, and immediate feedback to improve articulation and coordination. Without skilled intervention Pt is at risk for difficulty communicating basic, medical, emergent, social wants & needs, and interacting with family/friends at home, during social interactions, and at work. - Recommendations Treatment Warranted: Yes - Frequency Frequency: 1x/Week Duration: 4 Months - Prognosis Prognosis: Good - Goals that are Established: Determination:: Goals will be added/modified as deemed necessary and appropriate. Therapy will be discontinued when results of re-evaluation indicate therapy is no longer needed or lack of progress has been documented. - Goal #1-5 Goal #1: Pt will complete basic to mod complex verbal and visual problem solving/reasoning tasks w/90% acc independently across 3 consecutively measured opportunities. Goal #2: Pt will complete basic to mod complex immediate, short-term, and working memory tasks w/85% acc independently across 3 consecutively measured opportunities. Goal #3: Pt will produce single and multisyllable words (Initial /z/, Final /J/ and /zh/, S blends) with the use of clear speech strategies demonstrating errors on less than 10% of words at the conversation level given minimal verbal cues across 3 consecutively measured opportunities.
--- NOTE | 2021-10-15 15:46 | HP.PTEVAL_ITS ---
Patient's Visit Information JJ BUTLER is a 51 year old F referred to Physical Therapy by VIRGIE SOTO with a diagnosis of ACUTE LEFT SIDE LOW BACK PAIN WITH LEFT SIDE [place]. Date of Evaluation: 10/15/21 Physical Therapist: Stan Gray, PT, Cert MDT, OCS - Visit Plan Frequency: 2x /Week Duration: 4 Weeks Plan: PT INTERVETION POSTURAL EX'S ,DLS ABD/BACK ,LUMBAR FLEXION ,LE FLEXABLITY AND US - Subjective This 51 y/o female presents to physical therapy with with left low back with sciatica . Patient has had sciatica pain ~ 1 .5 months . Patient fell about 3 months ago in floor of house . Patient seen DR tried muscle relaxer ,Patient had to go to ER which had x-rays DDD. Tried prednisone. Location left lumbar radiates to side . Patient c/o paresthesia left foot. Aggravating factors walking , bending ,lifting and standing. Alleviating factors MEDS. Patient pain affects sleeping. Bowel/bladder - .Coughing/sneezing -. Patient pain affects QOL and function /ADLS. Patient uses scooter for example when going to grocery store . PMH: h/o 2 CVA'S. SOCIAL: . VOCATION: - Pain Left Back Pain Intensity (Out of 10): 10 Pain Intensity Range: 10 Left Lower Extremity Pain Intensity (Out of 10): 10 Pain Intensity Range: 10 - Objective POSTURE: mild forward posture. GAIT: reciprocal pattern antalgic gait slow clarice. PALAPTION: tender LS/SI left side. SYMMTRIES: align. LUMBAR ROM: flexion min/mod loss, extension mod loss pain, side glides min loss. FLE XABLITY: mod loss hamstrings - Special Tests L/S Slump test left side: Negative L/S Slump test right side: Negative L/S Left Straight Leg Raise: Negative L/S Right Straight Leg Raise: Negative Lumbar Standing: Flexion - Mechanical Response: No effect Lumbar Standing: Flexion - Symptoms During Testing: Increases Lumbar Standing: Flexion - Symptoms After Testing: No worse Lumbar Standing: Extension - Mechanical Response: No effect Lumbar Standing: Extension - Symptoms During Testing: Increases Lumbar Standing: Extension - Symptoms After Testing: No worse Lumbar Standing: Right Side Glides - Mechanical Response: No effect Lumbar Standing: Right Side [place] - Symptoms During Testing: Increases Lumbar Standing: Right Side [place] - Symptoms After Testing: No better Lumbar Standing: Left Side [place] - Mechanical Response: No effect Lumbar Standing: Left Side [place] - Symptoms During Testing: No effect Lumbar Standing: Left Side [place] - Symptoms After Testing: No effect Lumbar Lying: Flexion - Mechanical Response: No effect Lumbar Lying: Flexion - Symptoms During Testing: Decreases Lumbar Lying: Flexion - Symptoms After Testing: Better Lumbar Lying: Extension - Mechanical Response: No effect Lumbar Lying: Extension - Symptoms During Testing: Increases Lumbar Lying: Extension - Symptoms After Testing: Worse - Balance/Special Test Scores Oswestry Low Back Score: 38 - Goals Goal 1:: Patient to be I with HEP for lumbar Goal Time Frame: 4-6 Weeks Goal 2:: Patient to normalize gait pattern Goal Time Frame: 4-6 Weeks Goal 3:: Patient to improve lumbar ROM for function of recovery to put on shoes Goal Time Frame: 4-6 Weeks Goal 4:: Patient to demonstrate 50% improvement with decrease pain and improve function Goal Time Frame: 4-6 Weeks Goal 5:: Patient to improve back oswestry score by 5 points to improve QOL and function Goal Time Frame: 4-6 Weeks - Rehabilitation Potential Physical Therapy Diagnosis: This patient has left lumbar sciatica with possible lateral stenosis with pain during positioning and motion testing responds better with flexion affects ADL's and house work tasks thus benefit from skilled PT Rehabilitation Potential: Good - Anticipated Interventions Patient/Client Instruction: Educate patient on: Condition, Plan of Care For the Purpose of:: To decrease pain, To increase ROM, To improve muscle performance and motor function, To improve ability to perform ADL's, To increase tolerance to activity/condition/position, To improve ability of physical actions for home/community/work/leisure, To improve health of tissue, To decrease soft tissue restriction, To increase flexibility/ROM, To reduce risk of recurrence, To prevent re-injury Therapeutic Exercise to Include: Strength training, Body mechanics, Postural training, Flexibilty training, Active ROM, Dynamic Lumbar Stabilization For the Purpose of:: To decrease pain, To increase ROM, To improve muscle performance and motor function, To improve ability to perform ADL's, To increase tolerance to activity/condition/position, To improve ability of physical actions for home/community/work/leisure, To improve health of tissue, To decrease soft tissue restriction, To increase flexibility/ROM, To reduce risk of recurrence, To prevent re-injury Thank you for the opportunity to evaluate your patient. For Medicare and Medicare HMO plans, please review the plan of care and approve it. It will need to be FAXED BACK to us at [phone] for Medicare purposes. For Medicare only, by signing this I certify the plan of care. Please let me know if there are questions or concerns regarding this plan of care. Physician Signature: Date:
--- NOTE | 2021-11-19 16:09 | HP.SP.DC_ITS ---
ST Discharge Summary - Discharged: Discharge: Pt was seen for initial speech-language and cognitive evaluation at [facility] on 10/26/2020 s/p CVA. Pt attended a total of 29 additional sessions following initial evaluation within about a year?s time to target dysarthria, aphasia, and cognitive deficits via working on attention, word retrieval, divergent naming, problem solving/reasoning, memory, executive functioning, and safety awareness. Following re-evaluation of Pt?s current level of cognitive function, self- report, and Pt?s reduced carryover of suggested home program activities, Pt deemed appropriate for d/c from speech therapy at this time. Pt provided w/ additional home carry over activities to continue targeting language and memory tasks. Pt discharged from speech therapy caseload on this date, 11/19/2021. Thank you for allowing me to participate in the care of your Pt. Will reevaluate at Pt?s request following script from physician.
== END 2021-12-20 19:00 | disposition home or self-care (01) ==
LOC: PT 14:30
PROVIDERS: PCP Family Medicine
DX: R47.1 Dysarthria and anarthria; M54.42 Lumbago with sciatica, left side
CPT/HCPCS: 92507; 97110; 97162; 97530

== ENCOUNTER 2022-01-16 19:53 | Emergency (ER) | payer MEDICAID, SELFPAY ==
[2022-01-16 19:54] VITALS: BP 157/86; PULSE 83; RESP 16; TEMP 36.4; O2SAT 99; BMI 22.8
--- NOTE | 2022-01-16 20:16 | CT_ITS ---
INDICATION: right groin pain -- angio with right femoral artery access 01/13/22 EXAMINATION: CT PELVIS soft tissues - CTA Pelvis with Contrast Injection TECHNIQUE: Routine noncontrast bone CT protocol was performed of the pelvis. Multiplanar soft tissue reconstructions at 2.5 mm slice thickness. A radiation dose optimization technique was used for this scan. IV Contrast dosage and agent: 75 mL of [id number]. Radiation CTDIvol 24.65 Radiation DLP 275.89 COMPARISON: None. FINDINGS: Distal abdominal aorta at the trifurcation is well opacified. The inferior mesenteric artery is visualized. A few scattered intimal calcifications right common and left common iliac arteries. These are smaller caliber vessels but without atherosclerotic luminal narrowing. Bilateral internal/external femoral arteries are within normal limits. Visualized proximal superficial and deep femoral arteries are normal bilaterally. There is some stranding density, without focal fluid collection and no evidence of pseudoaneurysm or aneurysm, overlying the right common femoral artery. There are some right inguinal region lymph nodes hips show slightly increased density in the right compared to left. No asymmetric enlargement with maximum short axis of 5 mm thick: Normal size. Intra-abdominal soft tissues are notable for normal appendix and diverticuli of the sigmoid colon no focal inflammatory changes. Urinary bladder is normal in appearance. Uterus is absent. Right ovary visualized. Left ovary not seen. Intact bony pelvis. Sacroiliac joints and symphysis pubis show mild degenerative changes. No focal osseous lesion. Bilateral hips are within normal limits. Mild degenerative disc and endplate changes lower lumbar spine. No fracture. CT/CTA Pelvis W/WO Contrast IMPRESSION: Small amount of inflammatory stranding density overlying the right common femoral artery is expected finding status post arterial access. No aneurysm or pseudoaneurysm or other evidence of vascular injury. Slight asymmetrically increased enhancement right inguinal lymph nodes compared to the left of questionable clinical significance given normal size. Mild atherosclerosis distal abdominal aorta and branch vessels with less than 25% luminal narrowing. Diverticulosis without diverticulitis. Electronically Signed: Arnel Leslie DO at 22:13 EDT ,
--- NOTE | 2022-01-16 20:19 | EDS_ITS ---
HPI History of Present Illness Chief Complaint: General Illness Informant: patient Onset/Context/Timing Onset: Days Context: Gradual Onset Narrative Narrative: Patient presents with primary complaint of right groin pain. She had a an angiogram performed at [facility] on January 13 with access through the right femoral artery. She states has had significant pain to this area since that time. She was told to take Tylenol for pain but it is not controlling her symptoms. She also complains of a headache, but states she is had a headache ever since she had her stroke. It is not different after her procedure. She denies fever or chills. No overlying skin erythema. No bleeding or drainage. [facility] Medical History Diabetic neuropathy DM2 (diabetes mellitus, type 2) Hemiplegia and hemiparesis following cerebral infarction affecting left non- dominant side HLD (hyperlipidemia) HTN (hypertension) Tobacco dependence due to cigarettes Urinary tract infection with hematuria Home Medications clonazepam [Klonopin] 2 mg PO TID 06/15/14 [History Last Taken 07/22/20] quetiapine [Seroquel] 75 mg PO QHS 06/15/14 [History Last Taken 07/22/20] clopidogrel [Plavix] 75 mg PO QHS 07/03/16 [History Last Taken 07/22/20] glimepiride 4 mg PO DAILY 01/09/17 [History Last Taken 07/22/20] atorvastatin [Lipitor] 80 mg PO QHS 03/29/18 [History Last Taken 07/22/20] acetaminophen [Tylenol] 650 mg PO Q4H PRN PRN tablet 03/31/18 [Rx Last Taken Unknown] pantoprazole 40 mg PO DAILY #30 tab 03/31/18 [Rx Last Taken 07/22/20] lamotrigine [Lamictal] 25 mg PO DAILY 06/08/18 [History Last Taken Unknown] alogliptin [Nesina] 25 mg PO DAILY 09/30/19 [History Last Taken 07/22/20] aspirin 81 mg PO DAILY@0800 07/23/20 [History Last Taken 07/22/20] diphenhydramine HCl [Benadryl Allergy] 25 mg PO Q6H PRN #10 tab 03/14/21 [Rx Last Taken Unknown] Allergy/AdvReac Type Severity Reaction Status Date / Time azithromycin Allergy Diarrhea Verified 01/16/22 19:57 doxycycline Allergy Rash Verified 01/16/22 19:57 egg Allergy Unknown Verified 01/16/22 19:57 Penicillins Allergy Rash Verified 01/16/22 19:57 cyclobenzaprine AdvReac Rash Verified 01/16/22 19:57 [From Flexeril] gabapentin AdvReac Other Verified 01/16/22 19:57 Family History Grandmother Cancer Heart disease Myocardial infarction Aortic aneurysm rupture Hypertension Father Myocardial infarction Heart disease Hypertension Surgical History History of hysterectomy S/P cholecystectomy S/P tonsillectomy and adenoidectomy Social History household members: none Smoking Status: Current every day smoker tobacco type: cigarettes substance use type: does not use ROS ROS ED Constitutional Constitutional ED: Denies chills or fever(s) Eyes Eyes: Denies change in vision ENT ENT ED: Denies sore throat Cardiovascular Cardiovascular: Denies chest pain Respiratory/Chest Respiratory/Chest: Denies cough or dyspnea Gastrointestinal Gastrointestinal: Denies abdominal pain, diarrhea, nausea or vomiting Genitourinary Genitourinary ED: Denies dysuria Musculoskeletal Musculoskeletal: Reports other Details: Right groin pain ; Denies back pain Integumentary Denies rash Neurologic Neurologic: Reports headache(s); Denies weakness Allergic/Immunologic Allergic/Immunologic ED: Denies urticaria EXAM Physical Exam Const Vital Signs: 01/16/22 19:54 01/16/22 20:10 Temperature 97.5 F L Temperature Source Temporal Pulse Rate 83 Respiratory Rate 16 Respiratory Effort Normal Non-Labored Blood Pressure 157/86 H Blood Pressure Mean 109 Pulse Ox 99 Oxygen Delivery Method Room Air Positive well nourished and well developed General Appearance ED: well developed HEENT Reports moist mucous membranes Eyes PERRL and EOMs intact bilaterally Neck supple Chest Wall inspection of chest normal and palpation of chest normal Resp normal respiratory effort and clear to auscultation bilaterally Cardio regular rate and regular rhythm GI normal to inspection, nondistended, normoactive bowel sounds and non-tender Palpation: soft Extremity Extremity Narrative: Tenderness palpation of the right groin. No palpable masses. No overlying erythema or skin change. Good distal pulses. Neuro oriented x3 Sensorium / Orientation: alert Psych mental status grossly normal MDM MDM MDM Narrative Medical decision making narrative: Lab work obtained along with a CTA of the pelvis to evaluate the right femoral artery. She was initially ordered analgesics but then declined them stating that she had to drive home Lab Data Attestation: I reviewed the patient's lab results. Labs: Laboratory Results - last 24 hr 01/16/22 01/16/22 20:27 20:27 WBC 8.4 RBC 4.55 Hgb 14.0 Hct 42.2 MCV 92.7 MCH 30.8 MCHC 33.2 RDW Std Deviation 41.7 RDW Coeff of Arlene 12.2 Plt Count 166 MPV 11.4 Immature Gran % (Auto) 0.200 Neut % (Auto) 64.0 Lymph % (Auto) 26.4 [place] % (Auto) 5.5 Eos % (Auto) 3.2 Baso % (Auto) 0.7 Absolute Neuts (auto) 5.4 Absolute Lymphs (auto) 2.23 Nucleated RBC % 0 Sodium 142 Potassium 4.0 Chloride 108 H Carbon Dioxide 29.0 Anion Gap 5 BUN 19 H Creatinine 1.27 H Estim Creat Clear Calc 49.61 Est GFR (MDRD) Af Amer 57 L Est GFR (MDRD) Non-Af 47 L BUN/Creatinine Ratio 15.0 Glucose 162 H Calcium 9.3 Radiography Diagnostic Testing: Clinical Impression(s) from Imaging Studies Pelvis CTA 01/16/22 20:16 IMPRESSION: Small amount of inflammatory stranding density overlying the right common femoral artery is expected finding status post arterial access. No aneurysm or pseudoaneurysm or other evidence of vascular injury. Slight asymmetrically increased enhancement right inguinal lymph nodes compared to the left of questionable clinical significance given normal size. Mild atherosclerosis distal abdominal aorta and branch vessels with less than 25% luminal narrowing. Diverticulosis without diverticulitis. Electronically Signed: Arnel Leslie DO at 22:13 EDT , Treatment and Re-Evaluation Narrative: Test results discussed with the patient. Lab work unremarkable. CTA reveals no evidence of aneurysm or pseudoaneurysm. No evidence of vascular injury. Patient is reassured with these findings. She will continue Tylenol and ice packs to the area. Discharge Plan Triage Chief Complaint: General Illness ED Provider: Mary Joseph Dx/Rx/DC Orders Clinical Impression: Encounter for postoperative wound check Instructions: ED Post Op Wound Check, Pain Prescriptions: No Action quetiapine [Seroquel] 25 MG tablet 75 mg PO QHS RF: 0 clonazepam [Klonopin] 2 MG tablet 2 mg PO TID RF: 0 clopidogrel [Plavix] 75 MG tablet 75 mg PO QHS RF: 0 glimepiride 2 MG tablet 4 mg PO DAILY RF: 0 atorvastatin [Lipitor] 80 MG tablet 80 mg PO QHS RF: 0 acetaminophen [Tylenol] 325 MG tablet 650 mg PO Q4H PRN PRN (Reason: pain/fever) RF: 0 pantoprazole 40 MG tablet 40 mg PO DAILY Qty: 30 RF: 0 lamotrigine [Lamictal] 25 MG tablet 25 mg PO DAILY RF: 0 alogliptin [Nesina] 25 mg tablet 25 mg PO DAILY RF: 0 aspirin 81 MG tablet,chewable 81 mg PO DAILY@0800 RF: 0 diphenhydramine HCl [Benadryl Allergy] 25 mg tablet 25 mg PO Q6H PRN (Reason: nausea and vomiting) Qty: 10 RF: 0 Primary Care Provider: Ran Dill Referrals: Ran Dill MD [Primary Care Provider] - Activity Restrictions/Additional Instructions: As discussed, your CT scan does not reveal any evidence of vascular injury from your procedure. This area will take time to heal. Please avoid any sexual activity until cleared by your physician. Disposition Disposition: Home, Self Care
--- NOTE | 2022-01-16 20:28 | NURSING ---
pt refused pain medication since she wont be able to drive after receiving md updated
[2022-01-16 20:36] LABS: Absolute Lymphocyte Count 2.23 X10^3/uL (0.83-4.51); Absolute Neutrophil Count 5.4 X10^3/uL (2.0-7.7); Basophil# 0.06 X10^3/uL; Basophil% 0.7 % (0-1); Eosinophil# 0.27 X10^3/uL; Eosinophils% 3.2 % (0-5); Hematocrit 42.2 % (37-47); Lymphocyte # 2.23 X10^3/ul (0.83-4.51); Lymphocyte % 26.4 % (19-41); Mean Corp Hgb Conc 33.2 g/dL (32-36); Mean Corpuscular Hgb 30.8 pg (27.0-32.0); Mean Corpuscular Volume 92.7 fL (81-99); Mean Platelet Vol. 11.4 fl (6.2-12.0); Monocyte# 0.46 X10^3/uL; Monocyte% 5.5 % (0-10); NRBC Flagged by Analyzer 0 % (0-5); Platelet Count 166 K/mm3 (150-450); RBC Distribution Width CV 12.2 % (11.6-14.6); RBC Distribution Width SD 41.7 fl (35.1-43.9); Red Blood Count 4.55 M/mm3 (4.2-5.4); White Blood Count 8.4 K/mm3 (4.4-11.0)
[2022-01-16 20:53] LABS: Anion Gap 5 (5-15); BUN 19 mg/dL (7-18); Calcium,Total 9.3 mg/dL (8.5-10.1); Chloride 108 mmol/L (98-107); Creatinine, Serum 1.27 mg/dL (0.55-1.02); EST Glomerular Filtration Rate 47 mL/min (>60); Est Glom Filt Rate - Afr Amer 57 mL/min (>60); Estimated Creatinine Clearance 49.61 ml/min; Glucose 162 mg/dL (74-106); Sodium Level 142 mmol/L (136-145)
[2022-01-16 22:27] VITALS: BP 147/82; PULSE 73; RESP 18; O2SAT 98
== END 2022-01-16 22:29 | disposition home or self-care (01) ==
PROVIDERS: Emergency Provider Emergency Medicine; PCP Family Medicine; Visit Provider Emergency Medicine
DX: Z48.01 Encounter for change or removal of surgical wound dressing (principal); I69.354 Hemiplegia and hemiparesis following cerebral infarction affecting left non-dominant side; E11.40 Type 2 diabetes mellitus with diabetic neuropathy, unspecified; E78.5 Hyperlipidemia, unspecified; I10 Essential (primary) hypertension; F17.210 Nicotine dependence, cigarettes, uncomplicated; Z79.02 Long term (current) use of antithrombotics/antiplatelets; Z79.82 Long term (current) use of aspirin; Z79.84 Long term (current) use of oral hypoglycemic drugs; Z79.899 Other long term (current) drug therapy
CPT/HCPCS: J2405; 72191; 80048; 85025; 99283; Q9967; A4216

== ENCOUNTER 2022-01-28 19:11 | Emergency (ER) | payer MEDICAID, SELFPAY ==
[2022-01-28 19:12] VITALS: BP 128/81; PULSE 86; RESP 15; TEMP 36.6; O2SAT 97; BMI 23.2
--- NOTE | 2022-01-28 19:49 | EKG12_ITS ---
Test Reason : [facility] [place] Pressure : / mmHG Vent. Rate : 074 BPM Atrial Rate : 074 BPM P-R Int : 128 ms QRS Dur : 086 ms QT Int : 390 ms P-R-T Axes : 045 044 057 degrees QTc Int : 432 ms Normal sinus rhythm Nonspecific ST abnormality Abnormal ECG Confirmed by ANA PETERSEN, CLARY ([id number]), magazine editor DENISSE DEMARCO ([id number]) on 01/31/2022 12:42:25 PM Referred By: ROSA M Confirmed By:CLARY PEREZ MD
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
--- NOTE | 2022-01-28 19:53 | CM.ED ---
REYNOLD Note REYNOLD called Missy at [facility] and advised that patient will need to be seen due to SI. Labs are pending. REYNOLD provided handoff to Missy at [facility]. Columba PINEDO
[2022-01-28 20:17] LABS: Absolute Lymphocyte Count 3.03 X10^3/uL (0.83-4.51); Absolute Neutrophil Count 5.3 X10^3/uL (2.0-7.7); Basophil# 0.09 X10^3/uL; Eosinophil# 0.17 X10^3/uL; Eosinophils% 1.9 % (0-5); Hematocrit 41.2 % (37-47); Hemoglobin 13.8 g/dL (12.0-15.0); Lymphocyte # 3.03 X10^3/ul (0.83-4.51); Lymphocyte % 33.3 % (19-41); Mean Corp Hgb Conc 33.5 g/dL (32-36); Mean Corpuscular Volume 92.6 fL (81-99); Mean Platelet Vol. 10.9 fl (6.2-12.0); Monocyte# 0.54 X10^3/uL; Monocyte% 5.9 % (0-10); NRBC Flagged by Analyzer 0 % (0-5); Neutrophil # 5.26 X10^3/uL (2.7-7.7); Neutrophil % 57.7 % (47-70); Platelet Count 182 K/mm3 (150-450); RBC Distribution Width CV 12.3 % (11.6-14.6); RBC Distribution Width SD 41.8 fl (35.1-43.9); Red Blood Count 4.45 M/mm3 (4.2-5.4); White Blood Count 9.1 K/mm3 (4.4-11.0)
[2022-01-28 20:18] VITALS: RESP 16
[2022-01-28 20:22] LABS: Amphetamine Urine VISTA NEGATIVE (<1000 ng/mL); Barbiturate Urine VISTA NEGATIVE (< 200 ng/mL); Benzodiazepine Urine VISTA NEGATIVE (< 200 ng/mL); Cocaine Urine VISTA NEGATIVE (< 300 ng/mL); Ecstacy Urine VISTA NEGATIVE (< 500 ng/mL); Methadone Urine VISTA NEGATIVE (< 300 ng/mL); PCP Urine VISTA NEGATIVE (< 25 ng/mL); THC Urine VISTA NEGATIVE (< 50 ng/mL); Vista UDS pH Range 6
[2022-01-28 20:29] LABS: Alcohol, Blood (Medical)-Serum < 3.0 mg/dL
[2022-01-28 20:35] LABS: AST(SGOT) 14 U/L (15-37); Alanine Aminotransfer ALT/SGPT 31 U/L (13-56); Albumin, Serum 3.8 g/dL (3.2-5.0); Alkaline Phosphatase 75 U/L (45-117); Anion Gap 3 (5-15); BUN 19 mg/dL (7-18); BUN/Creat Ratio 16.1 RATIO (10-20); Calcium,Total 9.2 mg/dL (8.5-10.1); Chloride 110 mmol/L (98-107); Creatinine, Serum 1.18 mg/dL (0.55-1.02); EST Glomerular Filtration Rate 51 mL/min (>60); Est Glom Filt Rate - Afr Amer 62 mL/min (>60); Globulin 3.9 g/dL (2.2-4.2); Glucose 105 mg/dL (74-106); Potassium 3.8 mmol/L (3.5-5.1); Protein, Total 7.7 g/dL (6.4-8.2); Sodium Level 140 mmol/L (136-145)
[2022-01-28 21:36] VITALS: RESP 16; O2SAT 99
[2022-01-28 22:32] VITALS: PULSE 77; RESP 16; O2SAT 99
[2022-01-28 23:23] VITALS: PULSE 76; RESP 15; O2SAT 99
== END 2022-01-28 23:23 | disposition home or self-care (01) ==
PROVIDERS: Emergency Provider Emergency Medicine; PCP Family Medicine; Visit Provider Emergency Medicine
DX: F32.A Depression, unspecified (principal); I69.354 Hemiplegia and hemiparesis following cerebral infarction affecting left non-dominant side; E11.40 Type 2 diabetes mellitus with diabetic neuropathy, unspecified; R45.851 Suicidal ideations; I10 Essential (primary) hypertension; E78.5 Hyperlipidemia, unspecified; F17.210 Nicotine dependence, cigarettes, uncomplicated; Z79.02 Long term (current) use of antithrombotics/antiplatelets; Z79.82 Long term (current) use of aspirin; Z79.84 Long term (current) use of oral hypoglycemic drugs; Z79.899 Other long term (current) drug therapy
CPT/HCPCS: 36415; 80053; 80307; 82077; 85025; 87811; 93005; 99283

== ENCOUNTER 2022-02-20 22:15 | Emergency (ER) | payer MEDICAID, SELFPAY ==
[2022-02-20 22:15] VITALS: BP 128/86; PULSE 119; RESP 18; TEMP 39.7; O2SAT 99; BMI 22.6
--- NOTE | 2022-02-20 22:46 | EKG12_ITS ---
Test Reason : Blood Pressure : / mmHG Vent. Rate : 114 BPM Atrial Rate : 114 BPM P-R Int : 120 ms QRS Dur : 074 ms QT Int : 322 ms P-R-T Axes : 024 042 044 degrees QTc Int : 443 ms Sinus tachycardia Nonspecific ST abnormality Abnormal ECG Confirmed by ANA PETERSEN, CLARY ([id number]), magazine editor DENISSE DEMARCO ([id number]) on 02/22/2022 8:42:08 AM Referred By: Tl Confirmed By:CLARY PEREZ MD
--- NOTE | 2022-02-20 22:46 | RAD_ITS ---
STUDY: X-RAY CHEST REASON FOR EXAM: Female, 51 years old. cough TECHNIQUE: Single AP portable view of the chest. COMPARISON: None. FINDINGS: The lungs are clear and expanded. There is no demonstrated pleural abnormality. Normal size heart. Normal mediastinum and rupal. Normal visualized pulmonary arteries. Normal visualized aortic arch and descending thoracic aorta. Normal visualized thoracic spine. Normal visualized ribs, clavicles, and shoulders. There is no demonstrated abnormality of the visualized soft tissue structures of the upper abdomen. RAD/Chest 1 View (Portable) IMPRESSION: Normal x-ray examination of the chest. Electronically Signed: Sherwin Fritz DO at 23:40 EDT ,
--- NOTE | 2022-02-20 22:47 | EX.ED.DYSGE1 ---
HPI History of Present Illness Chief Complaint: General Illness Informant: patient Narrative Narrative: Presents with stating other evaluation symptoms today chills developing fever mild cough. No vomiting diarrhea. No urinary symptoms. Fatigue. She states only getting up to go to the restroom. Decreased oral intake. Nonvaccinated for COVID. Denies COVID infections in the past. Reports did get the flu vaccination however. 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 Diabetic. No medications taken. Came by private vehicle. Denies sick contacts. Prior similar symptoms: No PFSH PFSH Medical History (Updated 02/21/22 @ 01:[address] Agusto Palma, DO) CVA (cerebral vascular accident) Diabetic neuropathy DM2 (diabetes mellitus, type 2) Hemiplegia and hemiparesis following cerebral infarction affecting left non-dominant side HLD (hyperlipidemia) HTN (hypertension) Tobacco dependence due to cigarettes Urinary tract infection with hematuria Home Medications clonazepam 2 mg tablet (Klonopin) 2 mg PO TID anxiety 06/15/14 [History Last Taken 07/22/20] quetiapine 25 mg tablet (Seroquel) 75 mg PO QHS mental health 06/15/14 [History Last Taken 07/22/20] clopidogrel 75 mg tablet (Plavix) 75 mg PO QHS heart 07/03/16 [History Last Taken 07/22/20] glimepiride 2 mg tablet 4 mg PO DAILY blood sugar 01/09/17 [History Last Taken 07/22/20] atorvastatin 80 mg tablet (Lipitor) 80 mg PO QHS cholesterol lowering 03/29/18 [History Last Taken 07/22/20] acetaminophen 325 mg tablet (Tylenol) 650 mg PO Q4H PRN PRN pain/fever 03/31/18 [Rx Last Taken Unknown] aspirin 81 mg chewable tablet 81 mg PO DAILY@0800 heart health 07/23/20 [History Last Taken 07/22/20] diphenhydramine HCl 25 mg tablet (Benadryl Allergy) 25 mg PO Q6H PRN nausea and vomiting #10 tabs 03/14/21 [Rx Last Taken Unknown] Allergy/AdvReac Type Severity Reaction Status Date / Time azithromycin Allergy Diarrhea Verified 02/20/22 22:17 doxycycline Allergy Rash Verified 02/20/22 22:17 egg Allergy Unknown Verified 02/20/22 22:17 Penicillins Allergy Rash Verified 02/20/22 22:17 cyclobenzaprine AdvReac Rash Verified 02/20/22 22:17 [From Flexeril] gabapentin AdvReac Other Verified 02/20/22 22:17 Family History Grandmother Cancer Heart disease Myocardial infarction Aortic aneurysm rupture Hypertension Father Myocardial infarction Heart disease Hypertension Surgical History History of hysterectomy S/P cholecystectomy S/P tonsillectomy and adenoidectomy Social History household members: none Smoking Status: Current every day smoker tobacco type: cigarettes substance use type: does not use ROS ROS ED Constitutional Constitutional ED: Reports chills and fever(s); Denies sweats Eyes Eyes: Denies change in vision ENT ENT ED: Denies dysphagia or sore throat Cardiovascular Cardiovascular: Denies chest pain, leg edema, palpitations or racing heartbeat Respiratory/Chest Respiratory/Chest: Reports cough; Denies dyspnea or dyspnea on exertion Gastrointestinal Gastrointestinal: Denies abdominal pain, diarrhea, nausea or vomiting Genitourinary Genitourinary ED: Denies dysuria, hematuria or urinary frequency Musculoskeletal Musculoskeletal: Denies back pain, extremity pain or neck pain Integumentary Denies rash or wounds Neurologic Neurologic: Denies headache(s), paresthesias or weakness EXAM Physical Exam Const Vital Signs: 02/20/22 22:15 02/20/22 23:11 02/20/22 23:11 Temperature 103.5 F H 103.2 F H Temperature Source Temporal Oral Pulse Rate 119 H 115 H Respiratory Rate 18 19 H Respiratory Effort Respiratory Pattern Blood Pressure 128/86 H 128/78 H Blood Pressure Mean 100 94 Pulse Ox 99 96 96 Oxygen Delivery Method Room Air Room Air Room Air 02/20/22 23:16 02/20/22 23:16 02/20/22 23:16 Temperature 103.2 F H 103.2 F H Temperature Source Oral Oral Pulse Rate 115 H Respiratory Rate 19 H Respiratory Effort Short of Breath Respiratory Pattern Normal Blood Pressure 128/78 H Blood Pressure Mean 94 Pulse Ox 96 Oxygen Delivery Method Room Air 02/21/22 00:10 02/21/22 00:10 02/21/22 01:57 Temperature 99.3 F H 99.3 F H Temperature Source Oral Oral Pulse Rate 102 H 91 Respiratory Rate 18 18 Respiratory Effort Respiratory Pattern Blood Pressure 108/70 99/65 Blood Pressure Mean 82 Pulse Ox 96 96 Oxygen Delivery Method Room Air Positive well nourished and well developed General Appearance ED: well developed and NAD HEENT Reports dry mucous membranes normocephalic and atraumatic Mouth ED: Yes dry mucous membranes Mouth: dry mucous membranes Eyes PERRL, EOMs intact bilaterally and conjunctivae normal General Eye ED: Yes normal appearance of both eyes Neck no lymphadenopathy and supple General: Negative for tenderness Chest Wall Chest: Negative for tenderness Resp normal respiratory effort and normal air movement Effort and Inspection: symmetric chest movement; Negative for respiratory distress Cardio regular rhythm and no murmurs Rate: tachycardic Peripheral Pulses: pulses 2+ throughout GI normal to inspection, nondistended, normoactive bowel sounds and non-tender Palpation: Negative for guarding or rebound tenderness present Back/Spine no CVA tenderness and no thoracic nor lumbar tenderness Extremity Extremity Narrative: Normal range of motion set for left upper extremity residual weakness arm with elbow flexed position. General Extremety ED: Negative for edema or tenderness General Extremity: Negative for edema Neuro oriented x3 and no sensory deficits noted Sensorium / Orientation: awake and alert Skin no rashes or lesions noted and no wounds MDM MDM MDM Narrative Medical decision making narrative: Patient febrile tachycardic on arrival. Sepsis labs were obtained. Primary complaint cough today with fever and chills. COVID and influenza negative. White count 7.7. Lactic acid normal. Chest x-ray 1 view reviewed by myself and read by radiology shows no acute process. She had dry mucosal membranes ordered for IV fluids heart rate improved with this. Renal function normal. Electrolytes normal. Awaiting urine however patient had an incident and urine unable to be collected. We will continue to monitor. She is tolerating oral fluids in the ED. She was given Tylenol for her fever which also is improving. Clinically was improving on reevaluation. 0151: Patient try to give urine sample unable however she is tolerating oral fluids in the ED. She did not want to wait and wanted to go home. Discussed likely viral syndrome causing her fevers. She will continue oral fluids at home. Return precaution discussed. All questions were answered. Lab Data Attestation: I reviewed the patient's lab results. Labs: Laboratory Results - last 24 hr 02/20/22 02/20/22 02/20/22 23:05 23:05 23:05 WBC 7.7 RBC 4.85 Hgb 15.0 Hct 45.6 MCV 94.0 MCH 30.9 MCHC 32.9 RDW Std Deviation 44.8 H RDW Coeff of Arlene 13.1 Plt Count 121 L MPV 12.0 Immature Gran % (Auto) 0.500 Neut % (Auto) 73.9 H Lymph % (Auto) 9.5 L Benzie % (Auto) 14.8 H Eos % (Auto) 0.5 Baso % (Auto) 0.8 Absolute Neuts (auto) 5.7 Absolute Lymphs (auto) 0.73 L Nucleated RBC % 0 PT Cancelled INR Cancelled APTT Cancelled Sodium Cancelled Potassium Cancelled Chloride Cancelled Carbon Dioxide Cancelled Anion Gap Cancelled BUN Cancelled Creatinine Cancelled Estim Creat Clear Calc Cancelled Est GFR (MDRD) Af Amer Cancelled Est GFR (MDRD) Non-Af Cancelled BUN/Creatinine Ratio Cancelled Glucose Cancelled Lactic Acid Calcium Cancelled Total Bilirubin Cancelled AST Cancelled ALT Cancelled Alkaline Phosphatase Cancelled Total Protein Cancelled Albumin Cancelled Globulin Cancelled Albumin/Globulin Ratio Cancelled 02/20/22 02/20/22 02/20/22 23:05 23:49 23:52 WBC RBC Hgb Hct MCV MCH MCHC RDW Std Deviation RDW Coeff of Arlene Plt Count MPV Immature Gran % (Auto) Neut % (Auto) Lymph % (Auto) Benzie % (Auto) Eos % (Auto) Baso % (Auto) Absolute Neuts (auto) Absolute Lymphs (auto) Nucleated RBC % PT 14.3 INR 1.1 APTT 28.9 Sodium Potassium Chloride Carbon Dioxide Anion Gap BUN Creatinine Estim Creat Clear Calc Est GFR (MDRD) Af Amer Est GFR (MDRD) Non-Af BUN/Creatinine Ratio Glucose Lactic Acid Cancelled 0.9 Calcium Total Bilirubin AST ALT Alkaline Phosphatase Total Protein Albumin Globulin Albumin/Globulin Ratio 02/20/22 23:52 WBC RBC Hgb Hct MCV MCH MCHC RDW Std Deviation RDW Coeff of Arlene Plt Count MPV Immature Gran % (Auto) Neut % (Auto) Lymph % (Auto) Benzie % (Auto) Eos % (Auto) Baso % (Auto) Absolute Neuts (auto) Absolute Lymphs (auto) Nucleated RBC % PT INR APTT Sodium 138 Potassium 3.8 Chloride 106 Carbon Dioxide 25.0 Anion Gap 7 BUN 22 H Creatinine 0.94 Estim Creat Clear Calc 67.03 Est GFR (MDRD) Af Amer 81 Est GFR (MDRD) Non-Af 67 BUN/Creatinine Ratio 23.5 H Glucose 125 H Lactic Acid Calcium 8.1 L Total Bilirubin 0.40 AST 86 H ALT 111 H Alkaline Phosphatase 60 Total Protein 7.1 Albumin 3.5 Globulin 3.6 Albumin/Globulin Ratio 1.0 Radiography Chest X-Ray - ED: 1 View, Read by ED Physician and Read by Radiologist Diagnostic Testing: Clinical Impression(s) from Imaging Studies Chest X-Ray 02/20/22 22:46 IMPRESSION: Normal x-ray examination of the chest. Electronically Signed: Sherwin Fritz DO at 23:40 EDT Reading Location ID and State: [address] [place] [address] Tel , Service support , EKG Initial EKG: Attestation: I personally reviewed and interpreted this EKG as follows: Comments: Sinus rate of 114, no ST or T wave changes. Discharge Plan Triage Chief Complaint: General Illness ED Provider: Agusto Palma Dx/Rx/DC Orders Clinical Impression: Fever, Viral URI with cough, Dehydration Instructions: ED Dehydration (Adult), ED Fever Control (Adult), ED URI, Viral, No Abx (Adult) Prescriptions: No Action quetiapine [Seroquel] 25 MG tablet 75 mg PO QHS clonazepam [Klonopin] 2 MG tablet 2 mg PO TID clopidogrel [Plavix] 75 MG tablet 75 mg PO QHS glimepiride 2 MG tablet 4 mg PO DAILY Label Comments: atorvastatin [Lipitor] 80 MG tablet 80 mg PO QHS acetaminophen [Tylenol] 325 MG tablet 650 mg PO Q4H PRN PRN (Reason: pain/fever) 0RF aspirin 81 MG tablet,chewable 81 mg PO DAILY@0800 diphenhydramine HCl [Benadryl Allergy] 25 mg tablet 25 mg PO Q6H PRN (Reason: nausea and vomiting) Qty: 10 0RF Primary Care Provider: Rna Dill Referrals: Ran Dill MD [Primary Care Provider] - 3-5 Days if not improving Activity Restrictions/Additional Instructions: COVID and flu negative. Chest x-ray negative. Labs are all stable. Continue oral fluids for hydration. Continue Tylenol Motrin as needed for fevers. Disposition Disposition: Home, Self Care Discharge Date/Time: 02/21/22 02:03
[2022-02-20 23:11] VITALS: BP 128/78; PULSE 115; RESP 19; TEMP 39.6; O2SAT 96
[2022-02-20] MEDS: 0.9% Normal Saline 1,000 ML 999 ML IV (23:14)
[2022-02-20] MEDS: Acetaminophen 500 MG Tablet 1000 MG PO (23:14)
[2022-02-20 23:16] VITALS: BP 128/78; PULSE 115; RESP 19; TEMP 39.6; O2SAT 96
[2022-02-20 23:18] LABS: Absolute Lymphocyte Count 0.73 X10^3/uL (0.83-4.51); Absolute Neutrophil Count 5.7 X10^3/uL (2.0-7.7); Basophil# 0.06 X10^3/uL; Basophil% 0.8 % (0-1); Eosinophil# 0.04 X10^3/uL; Eosinophils% 0.5 % (0-5); Hematocrit 45.6 % (37-47); Lymphocyte # 0.73 X10^3/ul (0.83-4.51); Lymphocyte % 9.5 % (19-41); Mean Corp Hgb Conc 32.9 g/dL (32-36); Mean Corpuscular Hgb 30.9 pg (27.0-32.0); Monocyte# 1.14 X10^3/uL; Monocyte% 14.8 % (0-10); NRBC Flagged by Analyzer 0 % (0-5); Neutrophil # 5.67 X10^3/uL (2.7-7.7); Neutrophil % 73.9 % (47-70); Platelet Count 121 K/mm3 (150-450); RBC Distribution Width CV 13.1 % (11.6-14.6); RBC Distribution Width SD 44.8 fl (35.1-43.9); Red Blood Count 4.85 M/mm3 (4.2-5.4); White Blood Count 7.7 K/mm3 (4.4-11.0)
[2022-02-21 00:07] LABS: International Normalized Ratio 1.1; Prothrombin Time (Protime)PT. 14.3 SECONDS (11.7-14.9)
[2022-02-21 00:08] LABS: Partial Thromboplast Time 28.9 Seconds (24.1-36.2)
[2022-02-21 00:10] VITALS: BP 108/70; PULSE 102; RESP 18; TEMP 37.4; O2SAT 96
[2022-02-21 00:19] LABS: AST(SGOT) 86 U/L (15-37); Alanine Aminotransfer ALT/SGPT 111 U/L (13-56); Albumin, Serum 3.5 g/dL (3.2-5.0); Alkaline Phosphatase 60 U/L (45-117); Anion Gap 7 (5-15); BUN 22 mg/dL (7-18); BUN/Creat Ratio 23.5 RATIO (10-20); Calcium,Total 8.1 mg/dL (8.5-10.1); Chloride 106 mmol/L (98-107); Creatinine, Serum 0.94 mg/dL (0.55-1.02); EST Glomerular Filtration Rate 67 mL/min (>60); Est Glom Filt Rate - Afr Amer 81 mL/min (>60); Estimated Creatinine Clearance 67.03 ml/min; Globulin 3.6 g/dL (2.2-4.2); Glucose 125 mg/dL (74-106); Potassium 3.8 mmol/L (3.5-5.1); Protein, Total 7.1 g/dL (6.4-8.2); Sodium Level 138 mmol/L (136-145)
[2022-02-21 00:52] LABS: Lactic Acid 0.9 mmol/L (0.4-1.9)
[2022-02-21 01:57] VITALS: BP 99/65; PULSE 91; RESP 18; O2SAT 96
== END 2022-02-21 02:03 | disposition home or self-care (01) ==
PROVIDERS: Emergency Provider Emergency Medicine; PCP Family Medicine; Visit Provider Emergency Medicine
DX: J06.9 Acute upper respiratory infection, unspecified (principal); E11.40 Type 2 diabetes mellitus with diabetic neuropathy, unspecified; I10 Essential (primary) hypertension; E86.0 Dehydration; F17.210 Nicotine dependence, cigarettes, uncomplicated; E78.5 Hyperlipidemia, unspecified; Z20.822 Contact with and (suspected) exposure to COVID-19; Z79.899 Other long term (current) drug therapy
CPT/HCPCS: 71045; 80053; 83605; 85025; 85610; 85730; 87040; 87428; 93005; 96360; 99285; J7030; A4216

== ENCOUNTER 2022-03-21 16:37 | Emergency (ER) | payer MEDICAID, SELFPAY ==
[2022-03-21 16:39] VITALS: BP 123/83; PULSE 85; RESP 18; TEMP 36.3; O2SAT 98; BMI 22.7
== END 2022-03-21 17:30 | disposition left against medical advice (07) ==
LOC: ED 19:26
PROVIDERS: PCP Family Medicine
DX: R51.9 Headache, unspecified (principal); Z53.21 Procedure and treatment not carried out due to patient leaving prior to being seen by health care provider

== ENCOUNTER 2022-05-10 08:00 | Outpatient (RCR) | payer MEDICAID, SELFPAY ==
--- NOTE | 2022-05-10 09:00 | BH.SGPN.GN ---
Behaviors/Verbalizations/Mental Status: [] Client alert and oriented, casually dressed and groomed. Eye contact good. Motor activity appropriate. Speech within normal limits. Affect constricted, mood anxious. Thoughts linear, logical, no signs of hallucinations or delusions. Reviewed client?s symptom tracker, no risk for suicidal ideation, plan, or intent as of 05/10/22. Client Response/Progress/Benefit: [] Client's first day in program and getting adjusted to group environment. Responded well to group by participating and being attentive in group. Discussed how what she wants to get out of IOP program and indicated that her life is very chaotic right now with moving in with her son and experiencing high stress from that. Client seemed to benefit from feedback from group members of validation of feelings and support. She will continue IOP tx to increase coping skills, regulate emotions, and increase overall functioning. Narrative Note: []
--- NOTE | 2022-05-10 10:10 | BH.SGPN.GN ---
Behaviors/Verbalizations/Mental Status: [] Client alert and oriented, casually dressed and groomed. Eye contact good. Motor activity appropriate. Speech within normal limits. Affect congruent, mood euthymic and anxious. Thoughts linear, logical, no signs of hallucinations or delusions. Client Response/Progress/Benefit: [] Client responded well to session AEB sharing and listening attentively to others. Client provided examples of benefits of having social support. Client also participated in group discussion regarding the different kinds of supports in our safety net and the things that weaken or prevent us from using our supports. Clinician provided psychoeducation on types of support including internal and external support, with client identifying family and hobbies as other supports. Client participated in experiential activity illustrating the importance of having multiple social supports. Client provided supportive feedback and problem solving throughout group activity. Client participated in group processing of the activity. Client appeared to benefit from increased knowledge of the benefits of social support and greater self-awareness. Will continue IOP treatment to continue increasing application of healthy coping skills and decreasing negative self-talk to improve daily functioning. Narrative Note: []
--- NOTE | 2022-05-10 14:21 | BH.COMM ---
Communication Note - Communication with Client Communication Note: Met with pt to complete initial paperwork and complete the CSSR-S. No significant changes since initial assessment. Pt was a low risk on the CSSR-S. No SI, plan, or intent. Future oriented and family is a huge protective factor. One suicide attempt via overdose 10 years ago. Case discussed with Dr. 

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
--- NOTE | 2022-05-10 14:28 | BH.MTP ---
[facility] Treatment Plan - Patient Information Program Physician:: Dr. Brice Primary Therapist:: Shahana HERNANDEZ - Psychiatric Diagnoses Psychiatric Diagnoses:: Bipolar 2 disorder, recent episode depressed, without psychosis F ; Generalized anxiety disorder; Rule out PTSD; Alcohol use disorder; Nicotine use disorder Diagnosis Code(s):: F - Estimated LOS Estimated LOS (in weeks):: 6 Problem/Goal #1 - Problem/Goal #1 Stated Goal:: Pt will decrease depressive symptoms, guilt, low motivation, negative self-talk, and thoughts of . Description of Barriers: Pt reports her relationship with her boyfriend who struggles with alcoholism is one of her biggest stressors. There is codependency within the relationship which negatively impacts pt's mental health. Additional psychosocial stressors include: legal issues, multiple health conditions, and financial stress. Functional Impact: Pt is a 51-year-old female with a history of bipolar II, alcohol use disorder, and PTSD. Pt was a previous IOP pt and was referred back to the program by her outpatient therapist at [facility]. Pt's anxiety and depression have been worsening over the past several months due to multiple psychosocial stressors including pt having a major stroke, her having a heart attack, additional relationship issues with her boyfriend, and recent legal issues. At admission, pt endorsed a depressed mood with lack of energy, lack of motivation, passive thoughts of , poor sleep, and worthlessness. Pt stated she has less motivation to care for herself including managing her diabetes. Pt also reports constant anxiety, restlessness, panic attacks, and ruminations about her legal issues. Pt's symptoms are currently impacting her overall functioning and quality of life. Goal Relevant Strengths/Supports: Pt has outpatient counseling and psychiatry. Pt successfully completed IOP in the past and reported stability for several years. - Objectives Objective #1 Stated Objective: Pt will learn and utilize 2-3 healthy coping strategies to better manage depressive symptoms and reduce thoughts of as shown by a decrease of DMS-5 symptoms for depression. Interventions: Through group and individual sessions, therapist will help pt identify triggers and warning signs of depression and guilt including emotional, physical, and behavioral changes. Therapist will teach pt various coping skills to manage symptoms and give pt tangible resources to use to regulate emotions. Therapist will use cognitive restructuring techniques and help pt gain awareness of negative thoughts that reinforce guilt and depression. Therapist will provide psychoeducation on maintenance cycles and help pt learn ways to break unhealthy maintenance cycles. Therapist will help pt incorporate behavioral activation and assist pt in setting SMART goals. Discharge Criteria: Pt will have met this goal when can report learning and using at least 2 coping skills to manage depressive symptoms and reduce isolation. Additionally, pt will have met this goal when pt's DSM-5 scores for depression decrease. Target Date: 06/21/22 Review Date: 05/31/22 Status: open Objective #2 Stated Objective: Pt will identify at least 2-3 negative self-talk messages used to reinforce negative core beliefs and replace thoughts with positive, realistic messages. Interventions: therapist will help pt identify distorted, negative beliefs about self and replace with more realistic, affirmative messages. Therapist will use CBT to help pt increase insight to the connection between thoughts, emotions, and behaviors. Therapist will encourage pt to practice thought challenging. Discharge Criteria: Pt will have achieved this goal when can verbalize at least 2 negative self-talk messages and effectively replace those thoughts with affirmative, realistic messages. Target Date: 06/21/22 Review Date: 05/31/22 Status: open Problem/Goal #2 - Problem/Goal #2 Stated Goal:: Pt will reduce anxiety, irritability, and rumination while increasing ability to function on daily basis Description of Barriers: Pt reports her relationship with her boyfriend who struggles with alcoholism is one of her biggest stressors. There is codependency within the relationship which negatively impacts pt's mental health. Additional psychosocial stressors include: legal issues, multiple health conditions, and financial stress. Functional Impact: Pt is a 51-year-old female with a history of bipolar II, alcohol use disorder, and PTSD. Pt was a previous IOP pt and was referred back to the program by her outpatient therapist at [facility]. Pt's anxiety and depression have been worsening over the past several months due to multiple psychosocial stressors including pt having a major stroke, her having a heart attack, additional relationship issues with her boyfriend, and recent legal issues. At admission, pt endorsed a depressed mood with lack of energy, lack of motivation, passive thoughts of , poor sleep, and worthlessness. Pt stated she has less motivation to care for herself including managing her diabetes. Pt also reports constant anxiety, restlessness, panic attacks, and ruminations about her legal issues. Pt's symptoms are currently impacting her overall functioning and quality of life. Goal Relevant Strengths/Supports: Pt has outpatient counseling and psychiatry. Pt successfully completed IOP in the past and reported stability for several years. - Objectives Objective #1 Stated Objective: Pt will reduce anxiety and feelings of being overwhelmed and increase structure by accomplishing 2-3 small self-care goals a week. Interventions: Through group and individual sessions, pt will learn how to set small SMART goals to promote self-care and stress management. Therapist will provide education on stress and teach pt effective stress management strategies. Discharge Criteria: Pt will have accomplished this goal when can report accomplishing at least two small goals a week. Target Date: 06/21/22 Review Date: 05/31/22 Status: open Objective #2 Stated Objective: Pt will identify 2-3 anxiety triggers and 2 coping skills to use when feeling anxious to manage anxiety as shown by decreasing DSM-5 scores for anxiety. Interventions: Therapist will provide education on anxiety, avoidance behaviors, and maintenance cycles. Therapist will help pt explore personal symptoms and warning signs of anxiety. Therapist will teach pt coping skills to improve emotional regulation, mindfulness, and distress tolerance to help pt cope with anxiety in the moment. Discharge Criteria: Pt will have accomplished this goal when can identify at least 2 triggers and report using 2 coping skills to manage anxiety. Additionally, pt will have accomplished this goal when DSM-5 scores show a reduction for anxiety. Target Date: 06/21/22 Review Date: 05/31/22 Status: open
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
--- NOTE | 2022-05-11 10:10 | BH.SGPN.GN ---
Behaviors/Verbalizations/Mental Status: []Pt alert and oriented, casually dressed and grooming appears tended to. Eye contact good. Motor activity appropriate. Speech within normal limits. Affect constricted, mood anxious. Thoughts linear, logical, no signs of hallucinations or delusions. Client Response/Progress/Benefit: []Pt engaged throughout AEB taking notes, listening attentively, and providing input throughout. Attentive during psychoeducation and discussed the importance of goal-setting with the group. Group identified potential benefits of having goals to include: they motivate, increase self-confidence, provide a sense of accomplishment and give direction. Group also worked together to identify barriers to goal-setting which included; high expectations, negative thinking, and lack of motivation. Pt reported feeling highly anxious during group and did not participate in the experiential activity. Benefited from increased awareness of benefits and barriers to goal-setting. Pt's second day of IOP tx. Will continue IOP tx to prevent decompensation, improve overall functioning, and increase the use of healthy coping skills. Narrative Note: []
[2022-05-11 10:38] VITALS: BP 135/88; PULSE 66
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
--- NOTE | 2022-05-11 13:02 | BH.DR.ITP ---
Initial Treatment Plan Patient Information Visit Information: ADMISSION DATE: EXPECTED LOS: 4-6 weeks Problems/Symptoms Problem #1:: Depression Symptom:: Sadness, hopelessness, lack of motivation, low energy, fatigue, biological disruption of sleep, passive thoughts of Problem #2:: Anxiety Symptom:: Worry, rumination, avoidance
--- NOTE | 2022-05-13 09:02 | BH.SGPN.GN ---
Behaviors/Verbalizations/Mental Status: [] Pt eye contact fair, casually dressed, motor activity appropriate, speech normal rate and tone, mood depressed, constricted affect, thoughts linear and intact, no evidence of delusions or hallucinations. Reviewed pt's symptom tracker, no indication of suicidal ideation or intent. Client Response/Progress/Benefit: [] Client respond well to session as evidenced by her listening attentively to others and sharing thoughts and feelings. Client reported she is feeling extremely anxious this morning because her significant other is in the ICU due to alcoholism. Client expressed concern that he will not make it. Client stated he is becoming more and more frustrated that he has been doing records on and off for the last 5 years and is constantly worried 1 day he is not able to survive. Client reported mental health positive as attending IOP and participating in groups. Additional positive as getting the materials so that she can start to write in a junk journal. Seemed to benefit from support from peers. Client to continue IOP to increase confidence, challenge distorted thoughts, and prevent decompensation. Narrative Note: []
--- NOTE | 2022-05-13 10:10 | BH.SGPN.GN ---
Behaviors/Verbalizations/Mental Status: []Eye contact is good. Motor activity is appropriate. Appearance is casual. Speech is Appropriate. Mood is depressed and anxious. Affect is flat. Thoughts are linear and logical. No evidence of psychosis. Client Response/Progress/Benefit: []Pt was an active participant in group discussions. Attentive during psychoeducation and participated in interactive discussions in which group defined self-care, discussed the benefits to self-care, and identified common myths surrounding self-care. Pt shared that ?self-care can help create stability? and that she often uses journaling and exercise as her own forms of self-care. Group identified that self-care myths include; self-care is selfish, self-care is just personal hygiene, self-care should be fun, self-care is too time consuming, and I don?t deserve it. Pt and peers broke into smaller group and worked together to bust the myths associated with self-care. Benefited from increased awareness of the importance of self-care and its benefits. Progress noted in increased ability to identify healthy boundaries. Will continue in IOP to prevent decompensation, increase communication skills and depression management, and improve functioning. Narrative Note: []
--- NOTE | 2022-05-13 11:10 | BH.SGPN.GN ---
Behaviors/Verbalizations/Mental Status: []Pt alert and oriented, casually dressed and groomed. Eye contact good. Motor activity appropriate. Speech within normal limits. Affect constricted, mood anxious. Thoughts linear, logical, no signs of hallucinations or delusions. Client Response/Progress/Benefit: []Pt engaged participant AEB completing self-assessment worksheet and taking notes. Participated throughout group discussion on the various areas of self-care. Pt completed worksheet which identified current self-care practices and what self-care activities pt wants to start using. Pt selected emotional self-care to begin practicing more consistently. Pt plans to do this by starting the journal she has been ?putting off?. Appeared to benefit from completing the self-care evaluation and gaining insights into current self-care practices, as well as identifying areas in which pt would like to improve upon. Will continue IOP tx to improve mood stability, increase use of healthy coping skills, and improve self-care. Narrative Note: []
== END 2022-05-13 23:59 ==
LOC: BHIOP 08:00
PROVIDERS: PCP Family Medicine; Visit Provider Psychiatry & Neurology Psychiatry
DX: F41.1 Generalized anxiety disorder (principal); F31.81 Bipolar II disorder; F10.20 Alcohol dependence, uncomplicated; Z72.0 Tobacco use
CPT/HCPCS: 90792; H2012; H2020; T1002

== ENCOUNTER 2022-05-16 09:03 | Outpatient (RCR) | payer MEDICAID, SELFPAY ==
[2022-05-14 01:52] VITALS: BP 135/88; PULSE 66
--- NOTE | 2022-05-16 09:05 | BH.SGPN.GN ---
Behaviors/Verbalizations/Mental Status: []Pt alert and oriented, casually dressed and groomed. Eye contact good. Motor activity appropriate. Speech within normal limits-slow. Affect flat, mood dysthymic. Thoughts linear, logical, no signs of hallucinations or delusions. Reviewed pt?s symptom tracker, no risk for suicidal ideation, plan, or intent as of 05/16/22 Client Response/Progress/Benefit: [] Pt responded well to session, attentive and connecting with peers. Pt reports feeling overwhelmed this morning due to pt worrying about her boyfriend's addiction and inability to function. Pt shared she is trying really hard not to be confrontational which is both a positive and a stressor. Pt identified being able to manage her frustration over the weekend when she was watching her granddaughter as a mental health win this morning. Pt appeared to benefit from group support and feedback. Pt will continue IOP tx to prevent decompensation, increase self-care and boundary setting, and reduce negative thinking. Narrative Note: []
--- NOTE | 2022-05-16 10:10 | BH.SGPN.GN ---
Behaviors/Verbalizations/Mental Status: [] Eye contact is good. Motor activity is appropriate. Appearance is casual. Speech is Appropriate. Mood is anxious. Affect is congruent. Thoughts are linear and logical. No evidence of psychosis. Client Response/Progress/Benefit: [] Pt was an active participant in group discussion. Attentive AEB by note taking during psychoeducation on the types cognitive distortions, the CBT triangle, and automatic thoughts. This group was very information heavy as group was introduced to the various cognitive distortions however pt did participate in interactive discussions with peers in which they gave examples of certain cognitive distortions. Benefited from increased awareness and education on cognitive distortions and how they impact mental health. Will continue in IOP to prevent decompensation, increase healthy coping, and provide support. Narrative Note: []
--- NOTE | 2022-05-16 11:10 | BH.SGPN.GN ---
Behaviors/Verbalizations/Mental Status: []Eye contact is fair. Motor activity is appropriate. Appearance is casual. Speech is Appropriate. Mood is dysthymic. Affect is congruent. Thoughts are linear and logical. No evidence of psychosis. Client Response/Progress/Benefit: []Pt was an active participant in the group activity which involved working with peers to answer questions related to psychoeducation on cognitive distortions. Questions were posed in the fashion of Jeopardy and the categories included; Identifying the Cognitive Distortion, Ways to reframe cognitive distortions, Examples of cognitive distortions, and other areas related to cognitive distortions. This was an engaging way to help reinforce psychoeducation and to help client retain the information through examples and practicing. Pt was engaged in the game and with peers on collaborating to determine the answers. Client had some difficulty with challenging the thoughts independently, but worked well with her group to come up with rational responses. Benefited from rehearsing ways to challenge/reframe cognitive distortions and by gaining increased insight into examples/definitions of 10 most common cognitive distortions. Will continue in IOP to increase follow through on goals, increase healthy coping, and prevent decompensation.
--- NOTE | 2022-05-17 09:05 | BH.SGPN.GN ---
Behaviors/Verbalizations/Mental Status: [] Eye contact is good. Motor activity is appropriate. Appearance is casual. Speech is Appropriate. Mood is anxious. Affect is flat. Thoughts are linear and logical. No evidence of psychosis. Reviewed daily check in sheet and no reports of suicidal ideations or intent. Client Response/Progress/Benefit: [] Pt participated at times during the group discussion. Attentive. Daily symptom tracker notes 09/18 for anxiety, depression, and irritability. Mental health win was that she ?spent time with her son this weekend?. She completed responsibilities rather than ignore or avoiding. She talked about an upcoming stressor this afternoon involving a phone call. She did not elaborate regarding the specifics except to say that she is very anxious and stressed. Feels that she has always struggles with assertive communication and often is passive or aggressive. Group provided feedback and support which was beneficial. Will continue in IOP to prevent decompensation, stabilize mood, and increase healthy coping. Narrative Note: []
--- NOTE | 2022-05-17 09:22 | BH.MDN_ITS ---
Multi-Disciplinary Note - Note 60-min Individual Time Started:: 13:30 Date: 05/17/22 Purpose of session/treatment goals addressed:: To help pt cope with anxiety while making a phone call about her court case. Another goal was to help pt identify weekly treatment goals and organize these on a calendar. Eye Contact:: Good Motor Activity:: Slowed Appearance:: Casual Speech:: Other - slow Mood:: Anxious Affect:: Constricted Thoughts:: Linear, Logical, No evidence of hallucinations/delusions noted Staff Interventions:: thought challenging, mindfulness skills, strengths perspective, treatment planning, goal setting - helped pt create weekly goals and fill out a calendar to remember appointments., other - Provided emotional support as pt made a difficult phone call Client Response:: Pt responded well to session, open to meeting with therapist. Pt was highly anxious about the phone call she needed to make to her public affairs director. Practiced the 5-senses in the moment and this seemed to help pt. Pt made the call and unfortunately, pt found out that she called on the wrong date and how to reschedule. Pt was critical of herself for this, but she was receptive to thought challenging and self-compassion. Printed requested a print out of the May calendar and pt filled out the calendar with goals and appointment reminders. Pt shared by the end of the month she wants to be more organized and be able to wake up earlier to practice more physical self-care. Pt does well with writing things down and although she reports setting goals is anxiety producing, it helps motivate pt. Risks/Concerns:: Pt denies any suicidal ideations, plan, or intent as of 05/17/22. Pt denies any HI. Pt does have legal issues that are unresolved and causing pt significant stress. Progress Toward Goals/Plan:: Pt continues to be consistent with attendance and she is actively engaged in IOP. Pt's symptoms and stressors are ongoing. Pt's biggest stressors are her legal issues and relationship problems. Pt endorses anxiety, ruminations, panic, sleep issues, lack of motivation, lack of energy, and negative thinking. Pt has some physical limitations due to her stroke, but she is doing well in the group activities. Pt will continue IOP tx to prevent decompensation, increase self-care, and increase resilience. Time Stopped:: 14:25
--- NOTE | 2022-05-17 10:05 | BH.SGPN.GN ---
Behaviors/Verbalizations/Mental Status: []Eye contact is good. Motor activity is appropriate. Appearance is casual. Speech is Appropriate. Mood is depressed and anxious. Affect is constricted. Thoughts are linear and logical. No evidence of psychosis. Client Response/Progress/Benefit: []Pt was an engaged participant in group discussions. Attentive during psychoeducation and nodding as fellow participants shared. Participated with peers in experiential activity and provided some ideas to the group. Pt participated in an interactive discussion with peers in which they worked together to define what coping skills are. Pt shared that avoidance is a common coping mechanism but that it keeps us from actually ?dealing with our problems?. Group then identified unhealthy coping skills which included; lashing out, negative self-talk, isolating, substance abuse, avoidance, sleeping to escape, and distracting self with other?s problems. Psychoeducation on internal vs external coping skills. Benefited from increased awareness and education on the benefits of having both internal and external coping skills. Will continue in IOP to promote healthy skill application, continue to improve mood management, and prevent decompensation. Narrative Note: []
--- NOTE | 2022-05-17 11:07 | BH.SGPN.GN ---
Behaviors/Verbalizations/Mental Status: []alert and oriented, casually dressed and groomed. Eye contact fair to good. Motor activity appropriate. Speech within normal limits. Affect constricted, mood anxious. Thoughts linear, logical, no signs of hallucinations or delusions. Client Response/Progress/Benefit: []Pt responded well to session AEB taking notes and providing input and examples throughout. Group discussed the different categories of coping skills which included distraction, emotional release, grounding, self-love, and thought challenging. Pt created a coping skill menu identifying various skills to try in each category. Pt?s coping skill menu included: organizing, journaling, using her hands for a craft, ?dating myself,? and telling herself that thoughts are thoughts not facts. Appeared to benefit from increasing repertoire of healthy coping skills. Pt is consistent with attendance and reports using coping skills, but pt continues to struggle with setting boundaries and managing emotions. Pt will continue IOP tx to prevent decompensation, increase self-care, and reduce anxiety. Narrative Note: []
--- NOTE | 2022-05-19 09:00 | BH.SGPN.GN ---
Behaviors/Verbalizations/Mental Status: []Eye contact fair, casually dressed, motor activity appropriate, speech normal rate and tone, mood anxious, congruent affect, thoughts linear and intact, no evidence of delusions or hallucinations. Reviewed pt's symptom tracker, no indication of suicidal ideation or intent. Client Response/Progress/Benefit: [] Client respond well to session as evidenced by her listening attentively to others and openly sharing thoughts and feelings. Client identified mental positive as watching a scary movie with her boyfriend and having a good time together. Client stated additional mental health positive as making salads for dinner as a healthy choice. Client reported yesterday she did feel disappointed when her outpatient counselor cancelled their session because client was looking forward to meeting. Client seemed to benefit from support from peers. Client to continue IOP to increase coping, challenge negative thoughts, prevent decompensation.
--- NOTE | 2022-05-19 10:10 | BH.SGPN.GN ---
Behaviors/Verbalizations/Mental Status: []Pt alert and oriented, casually dressed and groomed. Eye contact good. Motor activity appropriate. Speech within normal limits. Affect congruent, mood anxious. Thoughts linear, logical, no signs of hallucinations or delusions. Client Response/Progress/Benefit: []Pt was an active participant AEB contributing to discussion, taking notes, and engaging in group activity. Connected with the topic of pitfalls and listened to group discussion on barriers that prevent from choosing a healthier path to mental wellness. Group worked together to identify examples of personal pitfalls which included; resentment/anger, shutting down, low motivation, making excuses, denial, distortions, and unhealthy coping. Pt identified not checking in with herself, not taking care of herself, and not taking medications as personal pitfalls that have inhibited progress in the past.? Pt benefited from group as pt learned to better identify potential barriers to improving mental health symptoms. Pt will continue IOP tx to reduce negative thinking, improve ability to manage stressors, and increase self-care. Narrative Note: []
--- NOTE | 2022-05-19 11:12 | BH.SGPN.GN ---
Behaviors/Verbalizations/Mental Status: []Pt alert and oriented, casually dressed and groomed. Eye contact good. Motor activity appropriate. Speech within normal limits. Affect congruent, mood anxious and euthymic. Thoughts linear, logical, no signs of hallucinations or delusions. Client Response/Progress/Benefit: []Pt receptive of session, engaged throughout AEB pt actively listening and contributing to discussion, as well as taking notes.? Pt participated in the experiential activity and did well to communicate ideas with peers and manage emotions. Pt attentive as group processed how the emotions and perspective of the group impacted the activity. Group worked together to identify different coping skills to help manage pitfalls. Pt identified pitfalls they struggle with such as lack of self-care and not consistently taking her medications. Pt plans to work on the pitfall of not taking her medication consistently by beginning to set an alarm to regularly remind herself of when she needs to do this. Benefited from identifying personal pitfalls and strategies to overcome these pitfalls. Will continue IOP tx to prevent decompensation, improve self-care and healthy boundary setting, and increase the use of healthy coping skills. Narrative Note: []
--- NOTE | 2022-05-23 09:05 | BH.SGPN.GN ---
Behaviors/Verbalizations/Mental Status: [] Client alert and oriented, casually dressed and groomed. Eye contact normal. Motor activity appropriate. Speech normal. Affect congruent, mood euthymic. Thoughts linear, logical, no signs of hallucinations or delusions. Reviewed client?s symptom tracker, no risk for suicidal ideation, plan, or intent as of 05/23/22 Client Response/Progress/Benefit: [] Client responded well to session, offering ideas to peers and providing encouragement. Client reports feeling irritable this morning as client indicated she would have to leave IOP early today to go to a appt with her significant other. Client shared how she does not want to go , but wants to support him. Client shared her wins from the weekend, which included increase her self care that included scrapbooking and going on a double date. Client appeared to benefit from providing and receiving feedback from peers. Client will continue IOP tx to increase overall functioning. Narrative Note: []
--- NOTE | 2022-05-23 10:10 | BH.SGPN.GN ---
Behaviors/Verbalizations/Mental Status: [ ] Client alert and oriented, casually dressed and groomed. Eye contact good. Motor activity appropriate. Speech within normal limits. Affect congruent, mood euthymic. Thoughts linear, logical, no signs of hallucinations or delusions. Client Response/Progress/Benefit: [] Client responded well to session, attentive and providing input throughout. Participated in discussion of things that can keep people feeling trapped or stuck in life including; avoidance, unhealthy coping, isolation, inconsistent boundaries, and surrounding self with toxic people. Group discussed the connection between thoughts, emotions, and behaviors as well as how negative thinking can keep a person stuck. Client attentive during psychoeducation on maintenance cycles. Client able to identify negative thoughts that have kept client stuck which included ?what an idiot I am things were better 5 years ago, and focusing on the what ifs. Client identified these thoughts lead her to feel worried a lot. Appeared to benefit from gaining awareness of how negative thoughts reinforce mental health symptoms and keep people stuck. Will continue IOP tx to prevent decompensation, increase anxiety management skills, and increase overall functioning. Narrative Note: []
--- NOTE | 2022-05-24 09:00 | BH.SGPN.GN ---
Behaviors/Verbalizations/Mental Status: [] Eye contact is poor. Motor activity is appropriate. Appearance is casual. Speech is Appropriate. Mood is depressed/irritable. Affect is flat. Thoughts are linear and logical. No evidence of psychosis. Reviewed daily check in sheet and no reports of SI. Client Response/Progress/Benefit: [] Pt did not participate in group discussions. She declined to share today as well. Daily symptom tracker notes 4/5 for depression and anxiety and 5/5 for anger. Distracted. Limited benefit from group today. Will continue in IOP to prevent decompensation, stabilize mood, and increase healthy coping Narrative Note: []
--- NOTE | 2022-05-25 09:00 | BH.SGPN.GN ---
Behaviors/Verbalizations/Mental Status: [] Eye contact is good. Motor activity is appropriate. Appearance is casual. Speech is Appropriate. Mood is euthymic. Affect is full. Thoughts are linear and logical. No evidence of psychosis. Reviewed daily check in sheet and no reports of SI Client Response/Progress/Benefit: [] Pt was an active participant in group discussion. Attentive. Provided appropriate feedback. Daily symptom tracker notes 4/5 for irritability and 3/5 for anxiety and depression. Mental health win was getting through a very difficulty conversation yesterday. Proud of herself for working through this stressor. Feels more motivated and energetic today. Completed tasks yesterday. Emotion for today is ?Accomplished?. Slept better last night as well. ?I?m trying to stay positive?. Benefited from group support, encouragement, and feedback. Will continue in IOP to prevent decompensation, increase healthy coping, and stabilize mood. Narrative Note: []
--- NOTE | 2022-05-25 11:10 | BH.SGPN.GN ---
Behaviors/Verbalizations/Mental Status: [] Client alert and oriented, neatly dressed and groomed. Eye contact good. Motor activity appropriate. Speech within normal limits. Affect congruent, mood euthymic. Thoughts linear, logical, no signs of hallucinations or delusions. Client Response/Progress/Benefit: [] Client engaged in session AEB contributing to discussion and engaging in activity. Client did well to review current conflict style and its impact on mental health. Attentive and taking notes during discussion on strategies for more effectively managing conflict in personal life. Client participated in activity and did well to be assertive and collaborating. Client given handout on fair fighting rules and identified that they want to stop stonewalling when in the face of conflict. Appeared to benefit from gaining strategies to help client better manage conflict. Will continue IOP tx to reduce negative thinking patterns and increase overall functioning. Narrative Note: []
--- NOTE | 2022-05-25 12:26 | PCM.BH.PN ---
Progress Note Progress Note: And history of Present Illness/Interim History: The patient is a 51-year-old female with a history of bipolar 2 disorder, PTSD, alcohol use disorder, history of stroke in 2020, hypertension, diabetes mellitus type 2 and other health issues who is seen in follow-up at the [facility] behavioral health IOP program. I last saw the patient 2 weeks ago and at that time her dose of Seroquel was increased to 75 mg p.o. at bedtime. The patient states that she feels much better on the increased dose. Her sleep is better and she feels more rested and has more energy during the day. Her mood is also less depressed now. She is not depressed every day now. She still has anxiety but feels that the Klonopin helps with this. She has returned back to living with her boyfriend now and is still stressed by this. He is not threatening the patient now and he is sober from alcohol use but they do bicker and sometimes this interferes with the patient's sleep as they do this in the evening. The patient is worried somewhat about her boyfriend's OCD issues. The patient still has some anxiety and ruminates negatively. She denies any drug use. She is still stressed by her approaching court hearing in June. She denies any passive thoughts of . She denies suicidal ideation, homicidal ideation, hallucinations, delusions or symptoms of mariza. Current Psychiatric Medications: [] Seroquel 25 mg, the patient takes 3 or 75 mg p.o. nightly (dose increased several weeks ago); Klonopin 2 mg p.o. 3 times daily (on this 12 years) Mental Status Examination: [] The patient is a 51-year-old female who appears somewhat older than her stated age and is casually dressed and groomed but mildly disheveled. She is alert and oriented to person place and time and ambulatory with a normal gait. She has no psychomotor agitation or retardation. Eye contact is good and speech is normal rate and rhythm and fluent with no pressure. Mood is mildly depressed. Affect is constricted. Thought process is goal-directed and organized but sometimes overinclusive. Thought content: There is no evidence of passive thoughts of , suicidal ideation, plan for suicide, homicidal ideation, hallucinations or delusions. Reality testing is intact. Intelligence is average or below. Impulsivity is moderate. Judgment is intact. Insight is fair. Diagnoses: [] 1. Bipolar 2 disorder (depression now) 2. Generalized anxiety disorder 3. Rule out PTSD 4. Alcohol use disorder 5. Nicotine use disorder Plan: [] The patient will continue the IOP program at [facility] as the structure, support, education and group therapy will hopefully prevent worsening of the patient's symptoms. She felt safe during the interview and if it anytime she does not feel safe she will let us know or go to the emergency room. The risks, options, possible complications and side effects of the patient's medications were again discussed with her and she understands and accepts these. No medication changes were made today she will continue the current doses. She will continue to follow-up with her outpatient providers and I will see the patient in regular follow-up while she is in the IOP program.
--- NOTE | 2022-05-30 10:10 | BH.SGPN.GN ---
Behaviors/Verbalizations/Mental Status: [] Client alert and oriented, casually dressed and appropriately groomed. Eye contact fair. Motor activity appropriate. Speech within normal limits. Affect congruent, mood euthymic. Thoughts linear, logical, no signs of hallucinations or delusions. Client Response/Progress/Benefit: [] Client connected with topic of anxiety and participated throughout, providing input and taking notes. Attentive during psychoeducation on different anxiety disorders and participated throughout interactive discussion defining anxiety and identifying cognitive and physiological symptoms of anxiety. Common cognitive symptoms identified by group included: ?what if thoughts?, all or nothing thinking, and predicting the future type thoughts. Physiological symptoms reported by patient included: feeling like can't breath, increased heart rate, chest pressure. Benefited from increased awareness and insight on anxiety and its impact. Will continue IOP tx to increase healthy coping and thought challenge skills and prevent decompensation.
--- NOTE | 2022-05-30 11:15 | BH.SGPN.GN ---
Behaviors/Verbalizations/Mental Status: []Pt alert and oriented, casually dressed and groomed. Eye contact good. Motor activity appropriate. Speech within normal limits. Affect constricted, mood euthymic. Thoughts linear, logical, no signs of hallucinations or delusions. Client Response/Progress/Benefit: []Pt was an active participant in group discussion and providing good insight to peers. Reviewed safety behaviors she engages in that reinforce anxiety. Attentive during psychoeducation on mindfulness coping skills and their impact on mental health wellness. The group worked together to brainstorm anxiety reduction strategies. Pt participated as group practiced two mindfulness strategies. Pt selected saying positive affirmations today to practice mindfulness. Pt seemed to benefit from increased repertoire of anxiety reduction skills. ?Pt will continue IOP tx to reduce anxiety symptoms, improve daily functioning, and increase mood stability. Narrative Note: []
--- NOTE | 2022-05-30 13:09 | BH.MTP_ITS ---
Treatment Plan Review Date of Admission:: 05/10/22 Date of Treatment Plan Review:: 05/30/22 Admitting Diagnoses:: Bipolar 2 disorder, recent episode depressed, without psychosis F 31.81; Generalized anxiety disorder; Rule out PTSD; Alcohol use disorder; Nicotine use disorder Current Diagnoses:: Bipolar 2 disorder, recent episode depressed, without psychosis F 31.81; Generalized anxiety disorder; Rule out PTSD; Alcohol use disorder; Nicotine use disorder Patient's Response to Treatment:: Pt has responded well to treatment AEB pt consistently attending IOP sessions and self-report of benefitting from IOP tx. Pt's overall DSM-5 scores have reduced by 17% since admission. Pt contributes well during individual sessions and takes notes throughout group sessions. Pt attempts to use coping skills outside of IOP and is a good support to peers. Status of Current Problems and Symptoms: Pt's symptoms and stressors are ongoing, but per her DSM-5 her anxiety symptoms are resolving. Pt is less anxious about her legal issues, which was a major stressor when pt started IOP. Pt continues to report relationship stress which triggers depressive symptoms and anger. Pt is working on combating negative self-talk, but pt still has numerous negative core beliefs. Pt continues to cope with financial and medical stressors. Problem #1 Problem Name:: depressive sx, guilt, thoughts of , negative self-talk Status of Goals:: Objective 1- not complete. Pt can identify numerous coping skills to manage depression, but pt?s current relationship continues to reinforce negative thoughts of self and depression. Pt?s scores for depression increase by one point since admission. Objective 2- In progress. Pt is able to challenge her negative self-talk with the help of therapist, but pt struggles to do this on her own. Team Recommendations:: Treatment tx recommends pt continue working on this treatment goal as pt's depression slightly increased from admission. Pt has expressed numerous times how her relationship triggers more depression and pt is in the preparation stage of leaving this relationship. Treatment team also recommends pt continue to reach out to healthy supports and practice self-care. Problem #2 Problem Name:: anxiety, irritability, and rumination Status of Goals:: Objective 1- in progress. Pt is working on setting small self- care goals each week including doing her hair, getting organized, and setting boundaries. Pt is also learning more about codependence. Objective 2-complete with ongoing work encouraged. Pt?s DSM-5 scores for anxiety have decreased by 42% since admission. Pt reports less anxiety about her legal issues which is likely contributing to the reduction. Team Recommendations:: Treatment team encourages pt to continue working on this goal to further reduce anxiety and irritability. Additionally, pt is recommended to continue working on her self-care goals to improve emotional regulation.
--- NOTE | 2022-06-03 09:05 | BH.SGPN.GN ---
Behaviors/Verbalizations/Mental Status: []Eye contact good, casually dressed, motor activity appropriate, speech normal rate and tone, mood irritable and dysthymic, congruent affect, thoughts linear and intact, no evidence of delusions or hallucinations. Reviewed pt's symptom tracker, denies suicidal ideation, plan, or intent as of this date 06/03/22. Client Response/Progress/Benefit: []Pt responded well to session, attentive and providing supportive feedback at times throughout. Pt reports feeling tired and irritable this morning. Identified mental health ?wins? as making it to group despite not getting much sleep as her partner turned on the air conditioner in the middle of the night. Additional win noted as making plans to spend time with a support this afternoon. Stressor is ongoing issues with her partner, but pt shares she is working with her individual therapist to identify strategies for addressing this. Receptive of and appearing to benefit from supportive feedback and suggestions from the group on making time for self-care today as well. Pt to continue IOP tx to improve healthy communication and boundary setting skills, prevent decompensation, and further improve mood stability. Narrative Note: []
--- NOTE | 2022-06-03 10:20 | BH.SGPN.GN ---
Behaviors/Verbalizations/Mental Status: []Pt alert and oriented, causally dressed and groomed. Eye contact good. Motor activity appropriate. Speech within normal limits. Affect constricted, mood dysthymic. Thoughts linear, logical, no signs of hallucinations or delusions. Client Response/Progress/Benefit: []Pt was an active?participant in group discussion. Group worked together to identify benefits of healthy relationships which include; improves mental health, encouragement, motivation, accountability, validation, connection, and personal growth. Group identified factors that lead to unhealthy relationships which included; co-dependence, gaslighting, not addressing issues, name-calling, and not setting boundaries.?Pt?s personal factors were fear of change and low self-esteem. Actively participated in group experiential activity and expressed ideas to group. Benefited from increased insight and awareness of benefits of healthy relationships and factors that contribute to unhealthy relationships. Will continue IOP tx to increase self-esteem, reduce depressive symptoms, and improve daily functioning. Narrative Note: []
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
--- NOTE | 2022-06-06 10:20 | BH.SGPN.GN ---
Behaviors/Verbalizations/Mental Status: []Pt alert and oriented, casually dressed and groomed. Eye contact good. Motor activity appropriate. Speech within normal limits. Affect constricted, mood depressed. Thoughts linear, logical, no signs of hallucinations or delusions. Client Response/Progress/Benefit: []Pt responded well to session, taking notes during discussion and engaged during the activity. Group identified the benefits of change which included: less stress, healthier wellbeing, and a better future. Worked with the group to identify barriers to change and pt identified personal barriers as fear of the unknown and difficulty setting boundaries with people. Pt participated along with group in activity where they identified and discussed the emotions related to change. Pt participated in discussion on the change process and personal experiences with implementing change in past. Benefited from increased awareness and understanding of emotions, benefits, and barriers related to change. Will continue IOP tx to increase self-esteem, reduce unhealthy coping skills, and increase self-care. ??? Narrative Note: []
--- NOTE | 2022-06-07 09:00 | BH.SGPN.GN ---
Behaviors/Verbalizations/Mental Status: []Pt eye contact fair, casually dressed, motor activity appropriate, speech normal rate and tone, mood dysthymic, congruent affect, thoughts linear and intact, no evidence of delusions or hallucinations. Client Response/Progress/Benefit: [] Client respond well to session as evidenced by listening attentively to others and sharing thoughts and feelings. Client reported she is having a bad day but trying to smile through it. Client stated she is upset because after falling in the shower yesterday her boyfriend didn't show any concern about her safety, only concerned about the damage to his shower. Client stated mental health positive as making it to IOP today and trying to challenge negative mindset. Seemed to benefit from support from peers. Client to continue IOP to continue use of healthy coping skills, challenge negative thoughts and prevent decompensation.
--- NOTE | 2022-06-07 11:20 | BH.SGPN.GN ---
Behaviors/Verbalizations/Mental Status: []Client alert and oriented, casually dressed and groomed. Eye contact good. Motor activity appropriate. Speech within normal limits. Affect congruent, mood euthymic. Thoughts linear, logical, no signs of hallucinations or delusions. Client Response/Progress/Benefit: []Client responded well to session, attentive AEB participating in activity and providing input in group. Did well to process activity and work with group to relate the strategies used to overcome barriers in the activity to managing change in own life. Client shared a change they would like to make is to ?stop ruminating?. Client stated currently being in the precontemplation stage. Identified goal to work on to achieve change behavior would be to remind herself of what she would gain by continuing to work on her mental health goals. Appeared to benefit from identifying a small goal to work towards. Client will continue IOP tx to reduce presenting agitation and anxiety, improve consistent application of healthy coping skills, and improve daily functioning. Narrative Note: []
--- NOTE | 2022-06-09 11:10 | BH.SGPN.GN ---
Behaviors/Verbalizations/Mental Status: []Client alert and oriented, casually dressed and groomed. Eye contact good. Motor activity appropriate. Speech within normal limits. Affect constricted, mood euthymic. Thoughts linear, logical, no signs of hallucinations or delusions. Client Response/Progress/Benefit: []Pt was engaged throughout AEB contributing to group discussion and self-reflection. Group finished processing cues to anger worksheet. Pt identified behavioral cues to anger include: start cussing and sometimes break things. Pt contributed as group brainstormed healthy coping skills for better managing anger which included: music, walking/exercise, changing the environment, communicating with supports, and journaling. Pt appeared to benefit from identifying different techniques to manage anger as well as gaining awareness of potential consequences of unmanaged anger. Will continue IOP tx to increase confidence, increase use of skills and prevent decompensation.
--- NOTE | 2022-06-10 09:05 | BH.SGPN.GN ---
Behaviors/Verbalizations/Mental Status: []Eye contact good, casually dressed, motor activity appropriate, speech normal rate and tone, mood dysthymic, constricted affect, thoughts linear and intact, no evidence of delusions or hallucinations. Reviewed pt's symptom tracker pt denies any SI plan, or intent as of this date 06/10/22. Client Response/Progress/Benefit: [] Pt responded well to session, quiet, but attentive and contributing when prompted. Pt reports feeling sad this morning and shared this week has been an emotional roller coaster. Pt continues to deal with the stressors of her relationship and the complex emotions that come with this. Pt reports she knows there needs to be more boundaries, but pt and her boyfriend have a codependent relationship. Pt identified her mental health win today is that she wore my confidence wig this week and pt got to IOP tx today as pt wanted to isolate. pt appeared to benefit from connecting with peers and processing emotions. Pt will continue IOP tx to promote mood stability, reduce self-sabotage, and increase self-confidence. Narrative Note: []
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
== END 2022-06-13 23:59 ==
LOC: BHIOP 09:03
PROVIDERS: PCP Family Medicine; Visit Provider Psychiatry & Neurology Psychiatry
DX: F31.81 Bipolar II disorder (principal); F41.1 Generalized anxiety disorder; F10.90 Alcohol use, unspecified, uncomplicated; Z72.0 Tobacco use
CPT/HCPCS: 99213; H2012; H2020; S9480; 90834; 90837

== ENCOUNTER 2022-06-02 15:24 | Emergency (ER) | payer MEDICAID, SELFPAY ==
[2022-06-02 15:25] VITALS: BP 154/88; PULSE 77; RESP 18; TEMP 36.3; O2SAT 98; BMI 23.9
--- NOTE | 2022-06-02 15:45 | EKG12_ITS ---
Test Reason : GENERAL Blood Pressure : / mmHG Vent. Rate : 075 BPM Atrial Rate : 075 BPM P-R Int : 144 ms QRS Dur : 082 ms QT Int : 378 ms P-R-T Axes : 018 033 057 degrees QTc Int : 422 ms Normal sinus rhythm Normal ECG Confirmed by YOUSIF PETERSEN, JUN ([id number]), editor department DENISSE DEMARCO ([id number]) on 06/06/2022 9:44:40 AM Referred By: Confirmed By:JUN DODD MD
--- NOTE | 2022-06-02 15:45 | CT_ITS ---
STUDY: CT BRAIN WITHOUT CONTRAST REASON FOR EXAM: Female, 51 years old. Difficulty swallowing. Hypertension and CVA. Artery removed from the right side place carotid artery secondary to stroke NOVEMBER. RADIATION DOSAGE (If Supplied By Facility): CTDIvol = ( 44.99 ) mGy, DLP = ( 812.98 ) mGycm TECHNIQUE: Transaxial CT imaging of the brain was performed without administration of intravenous contrast material. Individualized dose optimization techniques were used for this CT. COMPARISON: 10/22/2021 FINDINGS: Normal soft tissue structures. Evidence of remote bilateral temporal craniotomies. There is mild to moderate cerebral atrophy with widening of the extra-axial spaces and ventricular dilatation. Normal white matter tracts of the cerebral hemispheres. Normal basal ganglia and thalami. Normal brainstem. Normal cerebellum. There is no intracranial hemorrhage. There are no findings of an acute ischemic infarction. Normal visualized paranasal sinuses. CT/Brain/Head without Contrast IMPRESSION: Chronic involutional changes without evidence of acute intracranial or calvarial abnormality. There is no major interval change when compared to the previous study. Electronically Signed: Yosi Wheatley DO at 16:30 EDT Reading Location ID and State: [id number] Tel [phone], Service support ,
--- NOTE | 2022-06-02 15:47 | EDS_ITS ---
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 She states will go down the wrong pipe and she will choke and have a coughing fit. She does not notice it with soda and it happens intermittently with water. The temperature of the liquid does not seem to matter. She called her doctor about it who recommend she come in to be evaluated. Patient denies any other symptoms including vision changes, speech changes, numbness, tingling or headache. She does report that she has had increased urination, frequency, volume and increased thirst. She is worried she may be has a urinary tract infection. She notes that she does not check her blood sugars at home despite being a diabetic and has been eating more candy. Denies associated nausea or vomiting. Denies any chest pain, shortness of breath or difficulty breathing. No other complain ts at this time. [facility] Medical History Alcohol use disorder Bipolar 2 disorder, major depressive episode CVA (cerebral vascular accident) Diabetic neuropathy DM2 (diabetes mellitus, type 2) Generalized anxiety disorder Hemiplegia and hemiparesis following cerebral infarction affecting left non- dominant side HLD (hyperlipidemia) HTN (hypertension) Nicotine use disorder PTSD (post-traumatic stress disorder) Tobacco dependence due to cigarettes Urinary tract infection with hematuria Home Medications clonazepam 2 mg tablet (Klonopin) 2 mg PO TID anxiety 06/15/14 [History Last Taken 07/22/20] clopidogrel 75 mg tablet (Plavix) 75 mg PO QHS heart 07/03/16 [History Last Taken 07/22/20] glimepiride 2 mg tablet 4 mg PO DAILY blood sugar 01/09/17 [History Last Taken 07/22/20] atorvastatin 80 mg tablet (Lipitor) 80 mg PO QHS cholesterol lowering 03/29/18 [History Last Taken 07/22/20] aspirin 81 mg chewable tablet 81 mg PO DAILY@0800 [facility] 07/23/20 [History Last Taken 07/22/20] empagliflozin 25 mg tablet (Jardiance) 25 mg PO DAILY 05/11/22 [History Last Taken Unknown] quetiapine 25 mg tablet (Seroquel) 75 mg PO Q mental health 30 days #90 tabs 05/11/22 [Rx Last Taken 07/22/20] sulfamethoxazole 800 mg-trimethoprim 160 mg tablet (Bactrim DS) 1 tab PO BID 5 days #10 tabs 06/02/22 [Rx Last Taken Unknown] Allergy/AdvReac Type Severity Reaction Status Date / Time azithromycin Allergy Diarrhea Verified 06/02/22 15:28 doxycycline Allergy Rash Verified 06/02/22 15:28 egg Allergy Unknown Verified 06/02/22 15:28 Penicillins Allergy Rash Verified 06/02/22 15:28 cyclobenzaprine AdvReac Rash Verified 06/02/22 15:28 [From Flexeril] gabapentin AdvReac Other Verified 06/02/22 15:28 Family History Grandmother Cancer Heart disease Myocardial infarction Aortic aneurysm rupture Hypertension Father Myocardial infarction Heart disease Hypertension Surgical History History of hysterectomy S/P cholecystectomy S/P tonsillectomy and adenoidectomy Social History household members: none Smoking Status: Current every day smoker tobacco type: cigarettes substance use type: does not use ROS ROS ED Constitutional Constitutional ED: Denies chills or fever(s) Eyes Eyes: Denies blurry vision or change in vision ENT ENT ED: Denies ear pain Cardiovascular Cardiovascular: Denies chest pain or palpitations Respiratory/Chest Respiratory/Chest: Reports cough; Denies dyspnea or dyspnea on exertion Gastrointestinal Gastrointestinal: Reports other Details: Difficulty swallowing ; Denies abdominal pain, diarrhea, nausea or vomiting Genitourinary Genitourinary ED: Reports urinary frequency; Denies dysuria or hematuria Musculoskeletal Musculoskeletal: Denies arthralgias or myalgias Integumentary Denies rash Neurologic Neurologic: Denies headache(s), paresthesias or weakness Psychiatric Psychiatric: Denies anxiety or depression Endocrine Endocrinology: Reports polydipsia and polyuria Hematologic/Lymphatic Hematologic/Lymphatic: Denies easy bleeding or easy bruising EXAM Physical Exam Const Vital Signs: 06/02/22 15:25 06/02/22 15:31 06/02/22 17:55 Temperature 97.4 F L Temperature Source Temporal Pulse Rate 77 69 Respiratory Rate 18 16 Respiratory Pattern Normal Blood Pressure 154/88 H 135/86 H Blood Pressure Mean 110 102 Pulse Ox 98 100 Oxygen Delivery Method Room Air Room Air 06/02/22 19:40 Temperature Temperature Source Pulse Rate 77 Respiratory Rate 18 Respiratory Pattern Blood Pressure 150/94 H Blood Pressure Mean 112 Pulse Ox 100 Oxygen Delivery Method Room Air Positive well nourished and well developed General Appearance ED: well developed and NAD HEENT Reports moist mucous membranes Negative for trauma Eyes PERRL and EOMs intact bilaterally Eyes Narrative: No nystagmus Neck supple Neck Narrative: Normal range of motion Chest Wall inspection of chest normal and palpation of chest normal Resp normal respiratory effort and clear to auscultation bilaterally Cardio regular rate, regular rhythm and no murmurs GI normal to inspection, nondistended, normoactive bowel sounds and non-tender Extremity normal to inspection General Extremety ED: Negative for edema or tenderness General Extremity: Negative for edema Neuro oriented x3, CN's II-XII intact bilaterally and no sensory deficits noted Neuro Narrative: Normal coordination. Normal [id number]-[id number] and swqp-qb-[id number]. No uvular or tongue deviation appreciated. Sensorium / Orientation: alert Motor Exam: strength 5/5 throughout Psych mental status grossly normal Psych Narrative: Flat affect Skin no rashes or lesions noted and no wounds MDM MDM MDM Narrative Medical decision making narrative: Patient is evaluated for 1 week of difficulty swallowing and choking episodes. Seems to be mostly when she has coffee products. She does have a significant history of intracranial hemorrhage and prior stroke. CT of the brain as well as CTA of the head and neck obtained which not show any acute process. Patient's NIH is 0. Lab work large unremarkable however she is hyperglycemic with a glucose of 260. Her creatinine is at her baseline at 1.16 and she has a normal anion gap. Patient is given a liter of IV fluids and her recheck fingerstick glucose is 65. She is not given insulin in the ER. Urinalysis does 10-25 white blood cells, contamination and 4+ bacteria. Give patient is having urinary symptoms we will treat with Bactrim. Prior culture was sensitive to this. Patient is given first dose in the ER. Patient discharged home in stable condition. Counseled to follow-up with her primary care doctor she likely would benefit from a swallow study. No signs of aspiration pneumonia on her chest x- ray. Chest x-ray to read by myself as well as radiology. Lab Data Attestation: I reviewed the patient's lab results. Labs: Laboratory Results - last 24 hr 06/02/22 06/02/22 06/02/22 15:55 15:55 15:55 WBC 8.0 RBC 4.62 Hgb 14.7 Hct 44.5 MCV 96.3 MCH 31.8 MCHC 33.0 RDW Std Deviation 44.4 H RDW Coeff of Arlene 12.5 Plt Count 170 MPV 11.1 Immature Gran % (Auto) 0.100 Neut % (Auto) 57.6 Lymph % (Auto) 33.1 [place] % (Auto) 5.0 Eos % (Auto) 3.3 Baso % (Auto) 0.9 Absolute Neuts (auto) 4.6 Absolute Lymphs (auto) 2.64 Nucleated RBC % 0 PT 13.2 INR 1.0 Sodium 141 Potassium 4.3 Chloride 109 H Carbon Dioxide 25.0 Anion Gap 7 BUN 17 Creatinine 1.16 H Estim Creat Clear Calc 52.21 Est GFR (MDRD) Af Amer 63 Est GFR (MDRD) Non-Af 52 L BUN/Creatinine Ratio 14.7 Glucose 260 H Calcium 9.2 Total Bilirubin 0.50 AST 21 ALT 48 Alkaline Phosphatase 78 Total Protein 7.7 Albumin 3.7 Globulin 4.0 Albumin/Globulin Ratio 0.9 Urine Color Urine Clarity Urine pH Ur Specific [place] Urine Protein Urine Glucose (UA) Urine Ketones Urine Occult Blood Urine Nitrite Urine Bilirubin Urine Urobilinogen Ur Leukocyte Esterase Urine RBC Urine WBC Ur Squamous Epith Cells Urine Bacteria Urine Mucus Ethyl Alcohol POC Glucose 06/02/22 06/02/22 06/02/22 15:55 16:10 18:42 WBC RBC Hgb Hct MCV MCH MCHC RDW Std Deviation RDW Coeff of Arlene Plt Count MPV Immature Gran % (Auto) Neut % (Auto) Lymph % (Auto) [place] % (Auto) Eos % (Auto) Baso % (Auto) Absolute Neuts (auto) Absolute Lymphs (auto) Nucleated RBC % PT INR Sodium Potassium Chloride Carbon Dioxide Anion Gap BUN Creatinine Estim Creat Clear Calc Est GFR (MDRD) Af Amer Est GFR (MDRD) Non-Af BUN/Creatinine Ratio Glucose Calcium Total Bilirubin AST ALT Alkaline Phosphatase Total Protein Albumin Globulin Albumin/Globulin Ratio Urine Color Yellow Urine Clarity Sl. Cloudy Urine pH 5.0 Ur Specific [place] 1.020 Urine Protein 15 H Urine Glucose (UA) 1000 H Urine Ketones Negative Urine Occult Blood 25 H Urine Nitrite Negative Urine Bilirubin Negative Urine Urobilinogen Normal Ur Leukocyte Esterase 500 H Urine RBC 5-10 SEEN Urine WBC 10-25 SEEN Ur Squamous Epith Cells 10-25 SEEN Urine Bacteria 4+ Urine Mucus 0 SEEN Ethyl Alcohol < 3.0 POC Glucose 65 L Radiography Chest X-Ray - ED: 2 View, Read by ED Physician, Read by Radiologist and No Acute Disease Diagnostic Testing: Clinical Impression(s) from Imaging Studies Brain CT 06/02/22 15:45 IMPRESSION: Chronic involutional changes without evidence of acute intracranial or calvarial abnormality. There is no major interval change when compared to the previous study. Electronically Signed: Yosi Wheatley DO at 16:30 EDT Reading Location ID and State: [facility] Tel [phone], Service support , Chest X-Ray 06/02/22 16:18 IMPRESSION: Degenerative changes, as described above. No demonstrated acute cardiopulmonary process. No major interval change. Electronically Signed: Yosi Wheatley DO at 16:28 EDT Reading Location ID and State: [facility] Tel [phone], Service support , Head/Neck CTA 06/02/22 17:49 IMPRESSION: 1. Essentially stable findings when compared to a CTA of 11/15/2020 again seen is occlusion of the right ICA focal stenoses in the left carotid bulb diminished caliber of the bilateral anterior and middle cerebral artery and there is no new stricture or aneurysm Electronically Signed: Yosi Wheatley DO at 18:27 EDT Reading Location ID and State: [facility] Tel [phone], Service support , Rhythm Strip Rhythm Strip: Sinus Rhythm Rate: 75 Ectopy: None EKG Initial EKG: Attestation: I personally reviewed and interpreted this EKG as follows: Interpretation: Sinus Rhythm Comments: Normal sinus rhythm at a rate of 75 Normal axis Normal intervals Normal ST segments Discharge Plan Triage Chief Complaint: General Illness ED Provider: Adrianne Lowry Dx/Rx/DC Orders Clinical Impression: Difficulty swallowing liquids, History of right sided stroke, UTI (urinary tract infection) Instructions: Dysphagia Diet- Managing Drinks, ED Cystitis Female Adult, ED Dysphagia (Adult) Prescriptions: New sulfamethoxazole-trimethoprim [Bactrim DS] 800-160 mg tablet 1 tab PO BID 5 Days Qty: 10 0RF No Action clonazepam [Klonopin] 2 MG tablet 2 mg PO TID clopidogrel [Plavix] 75 MG tablet 75 mg PO QHS glimepiride 2 MG tablet 4 mg PO DAILY Label Comments: atorvastatin [Lipitor] 80 MG tablet 80 mg PO QHS aspirin 81 MG tablet,chewable 81 mg PO DAILY@0800 quetiapine [Seroquel] 25 MG tablet 75 mg PO QHS 30 Days Qty: 90 1RF Jardiance 25 mg Tablet 25 mg PO DAILY Primary Care Provider: Ran Dill Referrals: Ran Dill MD [Primary Care Provider] - Activity Restrictions/Additional Instructions: Please follow-up with your primary care doctor. You might require a swallow study if the symptoms persist. You do have a urinary tract infection. Take the entire course of antibiotics. Disposition Disposition: Home, Self Care Discharge Date/Time: 06/02/22 19:41 NIHSS NIHSS 1a. Level of Consciousness: Alert; keenly responsive 1b. LOC Questions: Answers BOTH questions correctly. 1c. LOC Commands: Performs both tasks correctly. 2. Best Gaze: Normal 3. Visual: No visual loss 4. Facial Palsy: Normal symmetrical movements 5a. Left Arm: No drift; arm holds 90 (or 45) degrees for full 10 seconds 5b. Right Arm: No drift; arm holds 90 (or 45) degrees for full 10 seconds 6a. Left Leg: No drift; leg holds 30-degree position for full 5 seconds 6b. Right Leg: No drift; leg holds 30-degree position for full 5 seconds 7. Limb Ataxia: Absent 8. Sensory: Normal; no sensory loss 9. Best Language: No aphasia; normal 10. Dysarthria: Normal 11. Extinction and Inattention: No abnormality Total: 0
[2022-06-02 16:03] LABS: Absolute Lymphocyte Count 2.64 X10^3/uL (0.83-4.51); Absolute Neutrophil Count 4.6 X10^3/uL (2.0-7.7); Basophil# 0.07 X10^3/uL; Basophil% 0.9 % (0-1); Eosinophil# 0.26 X10^3/uL; Eosinophils% 3.3 % (0-5); Hematocrit 44.5 % (37-47); Hemoglobin 14.7 g/dL (12.0-15.0); Lymphocyte # 2.64 X10^3/ul (0.83-4.51); Lymphocyte % 33.1 % (19-41); Mean Corpuscular Hgb 31.8 pg (27.0-32.0); Mean Corpuscular Volume 96.3 fL (81-99); Mean Platelet Vol. 11.1 fl (6.2-12.0); NRBC Flagged by Analyzer 0 % (0-5); Neutrophil % 57.6 % (47-70); Platelet Count 170 K/mm3 (150-450); RBC Distribution Width CV 12.5 % (11.6-14.6); RBC Distribution Width SD 44.4 fl (35.1-43.9); Red Blood Count 4.62 M/mm3 (4.2-5.4)
[2022-06-02 16:12] LABS: Prothrombin Time (Protime)PT. 13.2 SECONDS (11.7-14.9)
[2022-06-02 16:18] LABS: ALB/GLOB Ratio 0.9 RATIO (0.9-2.4); AST(SGOT) 21 U/L (15-37); Alanine Aminotransfer ALT/SGPT 48 U/L (13-56); Albumin, Serum 3.7 g/dL (3.2-5.0); Alkaline Phosphatase 78 U/L (45-117); Anion Gap 7 (5-15); BUN 17 mg/dL (7-18); BUN/Creat Ratio 14.7 RATIO (10-20); Calcium,Total 9.2 mg/dL (8.5-10.1); Chloride 109 mmol/L (98-107); Creatinine, Serum 1.16 mg/dL (0.55-1.02); EST Glomerular Filtration Rate 52 mL/min (>60); Est Glom Filt Rate - Afr Amer 63 mL/min (>60); Estimated Creatinine Clearance 52.21 ml/min; Glucose 260 mg/dL (74-106); Potassium 4.3 mmol/L (3.5-5.1); Protein, Total 7.7 g/dL (6.4-8.2); Sodium Level 141 mmol/L (136-145)
[2022-06-02 16:18] LABS: Mucous, Urine 0 SEEN /hpf (<or=2+)
--- NOTE | 2022-06-02 16:18 | RAD_ITS ---
STUDY: X-RAY CHEST REASON FOR EXAM: Female, 51 years old. Dysphagia. TECHNIQUE: 2 COMPARISON: None. FINDINGS: The lungs are clear and expanded. There is no demonstrated pleural abnormality. Normal size heart. Normal mediastinum and rupal. Normal visualized pulmonary arteries. Normal visualized aortic arch and descending thoracic aorta. There are diffuse degenerative changes of the visualized thoracic spine. Normal visualized ribs, clavicles, and shoulders. There is no demonstrated abnormality of the visualized soft tissue structures of the upper abdomen. RAD/Chest PA and Lateral IMPRESSION: Degenerative changes, as described above. No demonstrated acute cardiopulmonary process. No major interval change. Electronically Signed: Yosi Wheatley DO at 16:28 EDT ,
[2022-06-02 16:21] LABS: Color, Urine Yellow (Yellow); Glucose, Dipstick 1000 mg/dl (Normal); Ketone-Dipstick Negative (Negative); Leukocyte Esterase-Dipstick 500 /ul (Negative); Nitrite-Dipstick Negative (Negative); Occult Blood-Urine 25 /ul (Negative); Protein-Dipstick 15 mg/dl (Negative); Urine Bilirubin Dipstick Negative (Negative); Urine Clarity Sl. Cloudy (Clear); Urine Urobilinogen Normal (Normal)
[2022-06-02] MEDS: 0.9% Normal Saline 1,000 ML 1000 ML IV (16:22)
[2022-06-02 16:31] LABS: Bacteria 4+ /hpf (None Seen); Red Blood Cells-Urine 5-10 SEEN /hpf (0-5); Squamous Epithelial Cells - UA 10-25 SEEN /hpf (5-10); White Blood Cells 10-25 SEEN /hpf (0-5)
[2022-06-02 16:57] LABS: Alcohol, Blood (Medical)-Serum < 3.0 mg/dL
--- NOTE | 2022-06-02 17:49 | CT_ITS ---
STUDY: CTA HEAD AND NECK WITH CONTRAST REASON FOR EXAM: Female, 51 years old. Dysphasia. History of AVM and moyamoya disease. RADIATION DOSAGE (If Supplied By Facility): CTDIvol = ( 18.47 ) mGy, DLP = ( 598.14 ) mGycm TECHNIQUE: CT angiography was performed with a multi-detector CT scanner. Data acquisition was obtained from the skull base through the vertex following intravenous administration of IV 100mL [id number]-[id number]. MIP images were reconstructed from the axial data set. Post-processing of the angiographic images was performed, with multiplanar reformation and 3D reconstruction. Individualized dose optimization techniques were used for this CT. COMPARISON: CTA of the head and neck 11/15/2020. CT of the head, 06/02/2022 FINDINGS: Normal left petrous carotid arteries the right petrous carotid artery is absent.. Minimal contrast is seen within a narrow right cavernous carotid artery due to reflux flow. Diminished caliber left cavernous carotid artery with a normal supraclinoid bifurcation. The visualized right A1 segments of the anterior cerebral artery. Faintly visualized left A1 segments of the anterior cerebral artery. There is non-visualization of the anterior communicating artery (ACOM). Normal bilateral A2 segments of the anterior cerebral arteries. Diminished caliber of the right M1 and M2 segments of the middle cerebral arteries, with a normal M1 bifurcation. Limited visualization of the aorta. The left middle cerebral artery with otherwise normal M1 and M2 segments. Normal M1 bifurcation. There is non-visualization of the right posterior communicating artery (PCOM). There is non-visualization of the left posterior communicating artery (PCOM). Normal bilateral vertebral arteries. Normal basilar artery with a normal basilar bifurcation. The visualized bilateral superior cerebellar (SCA) arteries are normal. Normal bilateral P1, P2 and visualized P3 segments of the posterior cerebral arteries. There is no demonstrated aneurysm of the [place]. There is no demonstrated abnormality of the visualized brain. Then seen is evidence of bilateral temporal craniotomies. AORTIC ARCH: Normal visualized aortic arch. Normal origins of the brachiocephalic, left common carotid, and left subclavian arteries. RIGHT CAROTID ARTERIES: Normal right common carotid artery (CCA). Normal right common carotid bulb. Occluded right internal carotid artery. Normal origin of the right external carotid artery (ECA). LEFT CAROTID ARTERIES: Normal left common carotid artery (CCA). There is evidence of focal stenosis in the left carotid bulb with at least 2 areas of stricture and approximate 60% stenosis when compared to the ICA. Normal origin of the left internal carotid (ICA) artery without a hemodynamically significant stenosis. Left and mild overall narrowing of the visualized cervical portion of the left internal carotid artery. Normal origin of the left external carotid artery (ECA). VERTEBRAL ARTERIES: Normal bilateral vertebral arteries. CT/CTA Head AND Neck W/ Contrast IMPRESSION: 1. Essentially stable findings when compared to a CTA of 11/15/2020 again seen is occlusion of the right ICA focal stenoses in the left carotid bulb diminished caliber of the bilateral anterior and middle cerebral artery and there is no new stricture or aneurysm Electronically Signed: Yosi Wheatley DO at 18:27 EDT ,
[2022-06-02 17:55] VITALS: BP 135/86; PULSE 69; RESP 16; O2SAT 100
[2022-06-02] MEDS: Smz/Tmp Ds Tablet 1 TABLET PO (18:45)
[2022-06-02 19:06] LABS: Bedside Glucose 65 mg/dL (74-106)
[2022-06-02 19:40] VITALS: BP 150/94; PULSE 77; RESP 18; O2SAT 100
== END 2022-06-02 19:41 | disposition home or self-care (01) ==
PROVIDERS: Emergency Provider Emergency Medicine; PCP Family Medicine; Visit Provider Emergency Medicine
DX: R13.10 Dysphagia, unspecified (principal); I69.354 Hemiplegia and hemiparesis following cerebral infarction affecting left non-dominant side; F31.81 Bipolar II disorder; E11.65 Type 2 diabetes mellitus with hyperglycemia; E11.40 Type 2 diabetes mellitus with diabetic neuropathy, unspecified; N39.0 Urinary tract infection, site not specified; F17.210 Nicotine dependence, cigarettes, uncomplicated; E78.5 Hyperlipidemia, unspecified; I10 Essential (primary) hypertension; I67.5 Moyamoya disease; F41.1 Generalized anxiety disorder; Z79.02 Long term (current) use of antithrombotics/antiplatelets; Z79.82 Long term (current) use of aspirin; Z79.84 Long term (current) use of oral hypoglycemic drugs; Z79.899 Other long term (current) drug therapy
CPT/HCPCS: 70450; 70496; 70498; 71046; 80053; 81001; 82077; 82962; 85025; 85610; 87086; 93005; 96360; 96361; 99283; J7030; Q9967; A4216

== ENCOUNTER 2022-06-14 08:09 | Outpatient (RCR) | payer MEDICAID, SELFPAY ==
[2022-06-14 00:39] VITALS: BP 135/88; PULSE 66
--- NOTE | 2022-06-15 14:50 | BH.COMM ---
Communication Note - Communication with Client Communication Note: Pt was scheduled to see program psychiatrist today however did not show.
--- NOTE | 2022-06-16 10:05 | BH.SGPN.GN ---
Behaviors/Verbalizations/Mental Status: [] Eye contact is poor. Motor activity is appropriate. Appearance is disheveled. Speech is Appropriate. Mood is depressed. Affect is flat. Thoughts are linear and logical. No evidence of psychosis. Client Response/Progress/Benefit: [] Pt participated at times during the group discussions. Attentive during psychoeducation on Communication Styles (Passive, Passive-Aggressive, Aggressive, and Assertive). Participated during interactive discussion on obstacles to effective communication which included; assumptions, unmanaged emotions, minimizing symptoms, resentment, etc. Participated during interactive discussion on benefits to effective communication which included; getting needs met, increased trust, improved relationships, ability to better manage conflict, decreased stress, increased self-worth, and decreased anxiety. Pt was placed in small group and was engaged in identifying benefits and consequences of each communication style. Benefited from increased understanding of communication styles and the impact they have on mental wellness. Will continue in IOP to provide support, prevent decompensation, and increase healthy coping. Narrative Note: []
--- NOTE | 2022-06-16 11:10 | BH.SGPN.GN ---
Behaviors/Verbalizations/Mental Status: []Client alert and oriented, casually dressed and appropriately groomed. Eye contact good. Motor activity appropriate. Speech WNL. Affect constricted, mood dysthymic. Thoughts linear, logical, no signs of hallucinations or delusions. Client Response/Progress/Benefit: []Client responded well to session AEB client listening attentively to others and providing input during group discussion on the pay offs and costs of the different communication styles. Client reported she most often uses passive communication. Client stated this causes lots of stress and leads her to stay stuck in situations that she doesn't like. Client recognizes being passive keeps her from getting needs met. Client engaged in activity. Connected with peers comments about importance of using assertive communication. Client seemed to benefit from increasing awareness of healthy strategies to improve communication. Will continue IOP tx to improve confidence, increase consistent use of coping skills and prevent decompensation.
--- NOTE | 2022-06-17 11:10 | BH.SGPN.GN ---
Behaviors/Verbalizations/Mental Status: []Pt alert and oriented, casually dressed and groomed. Eye contact good. Motor activity appropriate. Speech within normal limits. Affect congruent, mood euthymic. Thoughts linear, logical, no signs of hallucinations or delusions. Client Response/Progress/Benefit: []Pt engaged during activity, encouraging peers, and contributed as group brainstormed ideas on how to cope with internal barriers that keep pts stuck from moving towards goals. Able to identify barriers to desired reality. Identified barriers to current reality to include lack of self-confidence, negative self-talk, and poor boundaries. Pt wants to work on overcoming the barrier of negative self-talk by writing down her accomplishments and using positive affirmations. Benefited from group by identifying obstacles and solutions to desired reality.? Pt will continue IOP tx to increase use of healthy coping skills and self-care, reduce negative thinking, and improve mood stability. ? Narrative Note: []
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
--- NOTE | 2022-06-20 09:02 | BH.SGPN.GN ---
Behaviors/Verbalizations/Mental Status: [] Pt eye contact fair, casually dressed, motor activity appropriate, speech normal rate and tone, mood dysthymic, constricted affect, thoughts linear and intact, no evidence of delusions or hallucinations. Per pt's symptom tracker denies current suicidal thoughts, plan or intent. Client Response/Progress/Benefit: [] Client respond well to session as evidenced by her listening attentively to others and sharing thoughts and feelings. Client reported mental health positive as coming to IOP today despite not feeling the best. Client reported additional positive as getting to go out to eat for her birthday over the weekend. Client stated stressor as recognizing her mood has been up and down and feeling more aggravated and on edge throughout the weekend. Seemed to benefit from support from peers. Client to continue IOP to continue use of healthy coping skills, work on setting healthy boundaries, and prevent decompensation. Narrative Note: []
--- NOTE | 2022-06-20 10:12 | BH.SGPN.GN ---
Behaviors/Verbalizations/Mental Status: []Client alert and oriented, casually dressed and groomed. Eye contact good. Motor activity appropriate. Speech within normal limits. Affect congruent, mood dysthymic. Thoughts linear, logical, no signs of hallucinations or delusions. Client Response/Progress/Benefit: []Client was an active participant in group discussions and activity. Attentive during psychoeducation. Client, along with peers, was able to identify several negatives on the picture given to the group. Client and peers also identified positives in the picture and made the connection that finding positives is much more difficult. Client shared that perspective can change the way we behave and interact around others. Interactive discussion on the definition of perspective, how perspective is formed, and why perspective is important in treatment. Client discussed that the people you are around can influence perspective. Client along with group members came up with benefits of having a hopeful perspective for their mental health, which included feeling more encouraged, increased willingness to open up to peers, and reduced stress. Will continue in IOP to improve healthy coping repertoire, increase overall functioning, and improve sx management. Narrative Note: []
--- NOTE | 2022-06-20 11:12 | BH.SGPN.GN ---
Behaviors/Verbalizations/Mental Status: []Pt alert and oriented, casually dressed and groomed. Eye contact good. Motor activity appropriate. Speech within normal limits. Affect constricted, mood tired. Thoughts linear, logical, no signs of hallucinations or delusions. Client Response/Progress/Benefit: []Pt was attentive and contributed in larger group discussion. Pt completed strengths exploration worksheet. Pt able to acknowledge how these strengths are helping pt and can continue to help pt in mental health journey. Reflected on how her kindness, empathy, forgiveness, and flexibility have helped pt in the past and continue to help pt with her mental health. Pt wants to work on keeping a list of her strengths where pt can see them. Benefited from identifying personal strengths and strategies for enhancing use of identified strengths. Pt to continue IOP tx to increase distress tolerance skills, improve self-care and boundary setting skills, and reduce use of unhealthy coping skills. ? Narrative Note: []
--- NOTE | 2022-06-28 10:15 | BH.SGPN.GN ---
Behaviors/Verbalizations/Mental Status: [] Eye contact is fair. Motor activity is appropriate. Appearance is casual. Speech is Appropriate. Mood is dysthymic. Affect is constricted. Thoughts are linear and logical. No evidence of psychosis. Client Response/Progress/Benefit: [] Client was an attentive during group discussions by writing notes and sharing when prompted. Attentive during psychoeducation on the six types of boundaries (physical, emotional, intellectual, sexual, time, and material) AEB note-taking. Along with peers contributed to interactive discussion on defining what a boundary is in mental health. Client along with peers identified challenges to setting boundaries which included: fear of other's response, guilt, fear of losing relationships, and lack of confidence. Worked with peers to identify the benefits to setting boundaries such as increased control, benefit to mental health, and increased confidence. Client recognizes she often doesn't get her needs met and maintains unhealthy relationships due to poor boundaries. Client benefited from increased awareness and insight on the importance/benefit to setting health boundaries. Will continue in IOP to consistently appyly healthy coping skills, challenge negative thinking, and prevent decompensation.
--- NOTE | 2022-06-28 11:18 | BH.SGPN.GN ---
Behaviors/Verbalizations/Mental Status: []Client alert and oriented, casually dressed and groomed. Eye contact good. Motor activity appropriate. Speech within normal limits. Affect congruent, mood anxious, dysthymic. Thoughts linear, logical, no signs of hallucinations or delusions. Client Response/Progress/Benefit: []Client responded well to session AEB listening attentively to peers and providing input when prompted. Client engaged and providing insight during psychoeducation on the different boundary styles. Noted she struggles with porous boundaries when it comes to some of her more intimate relationships, often struggling to say ?no? to other?s requests. Client worked in a small group to identify strategies for healthy boundary setting. Client identified wanting to work on reminding herself of the long-term benefits of establishing and maintaining healthier boundaries. Progress noted in self-report of improved mood. Will continue IOP tx to prevent decompensation, continue to improve overall functioning, and promote continued application of healthy coping skills. Narrative Note: []
--- NOTE | 2022-06-28 14:26 | BH.MDN ---
Multi-Disciplinary Note - Note 30-min Individual Time Started:: 09:35 Date: 06/28/22 Purpose of session/treatment goals addressed:: To address current stressors and discuss strategies to help cope with these stressors. Another goal was to discuss discharge and aftercare. Eye Contact:: Good Motor Activity:: Appropriate Appearance:: Casual Speech:: Soft, Other - slow Mood:: Anxious, Dysthymic Affect:: Constricted Thoughts:: Circular, No evidence of hallucinations/delusions noted Staff Interventions:: thought challenging, discharge planning, strengths perspective, other - reviewed progress and aftercare plan Client Response:: Pt responded well to session, open to meeting with therapist. Pt reports feeling ready to discharge this week, but pt will miss coming to IOP. Pt stated she feels less anxiety and IOP helped pt find my confidence again. However, pt continues to feel torn and sad about what the future holds for pt and her boyfriend. Pt is in the preparation stage of leaving as pt is reaching out to additional housing resources, but pt still desires the relationship to work. Pt appeared to benefit from processing her emotions and gentle thought challenging. Pt has good insight that the relationship is toxic, but due to the codependency pt struggles to set firm boundaries. Pt will continue to work on this with her outpatient counselor. Pt will also begin IOP aftercare on 07/14/22. Risks/Concerns:: Pt denies any suicidal ideations, plan, or intent as of 06/28/22. Progress Toward Goals/Plan:: Pt has made progress and has accomplished her tx goals AEB her reduced DSM-5 scores. Pt will discharge from IOP at the end of the week, but can benefit from a two more sessions to reinforce healthy coping skills and gain closure in treatment. Pt plans to follow up with her outpatient providers as pt wants to continue working on her goal of gaining independence and leaving a toxic relationship. Time Stopped:: 10:05
--- NOTE | 2022-06-29 10:10 | BH.SGPN.GN ---
Behaviors/Verbalizations/Mental Status: [] Eye contact is good. Motor activity is appropriate. Appearance is casual. Speech is Appropriate. Mood is anxious. Affect is congruent. Thoughts are linear and logical. No evidence of psychosis. Client Response/Progress/Benefit: [] Pt was an active participant in group discussions and activities. Attentive during psychoeducation. Participated during interactive group discussions on defining stress, benefits of stress, and how they respond when feeling overwhelmed with stress. Pt stated that when her jar is overflowing it leads to not caring for herself, relationship conflicts, and not following through with daily routines. . Benefited from increased understanding of stressors and how they can impact mental health. Will continue in IOP to maintain gains. Narrative Note: []
--- NOTE | 2022-06-29 11:10 | BH.SGPN.GN ---
Behaviors/Verbalizations/Mental Status: []Pt alert and oriented, casually dressed and groomed. Eye contact good. Motor activity appropriate. Speech within normal limits. Affect constricted, mood content. Thoughts linear, logical, no signs of hallucinations or delusions. Client Response/Progress/Benefit: []Pt participated at times during group discussions. Attentive during psychoeducation. Participated in experiential activity in which group members had to utilize stress management skills in the moment. Pt agreed with peers that their cooperation and communication was a helpful resource and pt worked well with peers to problem-solve the stressors presented. Pt engaged in review of the 4 A?s and picked wanting to work on altering her time-management by creating daily to-do lists to keep pt focused. Benefited from processing in the moment stress management strategies and identifying new ways to cope with stress. Will continue IOP tx to reinforce healthy coping skills, combat distortions, and improve mood stability. ? Narrative Note: []
--- NOTE | 2022-06-29 12:12 | PCM.BH.PN ---
Progress Note Progress Note: In history of Present Illness/Interim History: [] The patient is a 52-year-old female with a history of bipolar disorder, but depression and anxiety who is seen in follow-up at the [facility] IOP program. She was last seen about a month ago and at that time her Seroquel had been increased. The patient states that she has been feeling more agitated, depressed and irritable lately since the time change because she hates being in the dark. She is able to enjoy more things lately and her sleep is anywhere from 5 to 6 hours only over a night lately when she usually gets 8 hours of sleep. She has somewhat let low energy and decreased concentration lately. She denies guilt, hopelessness, worthlessness and passive thoughts of . She denies plan for suicide, suicidal ideation, homicidal ideation, hallucinations, delusions or symptoms of mariza. Her living situation and her court obligations have been stressful lately. Court recently has gone better than expected and she has decided also to continue living with her boyfriend for a while. She is hopeful that his situation with her will improve although he frequently cheats on her and sees prostitutes. Current Psychiatric Medications: [] Seroquel 75 mg, increased to 150 mg p.o. nightly yesterday by her outpatient psychiatrist Dr. Cooper; Klonopin 2 mg p.o. 3 times daily Mental Status Examination: [] Patient is a 52-year-old female who appears normal for stated age and is casually dressed and groomed with good hygiene. She is ambulatory with a normal gait and cooperative during the interview. She has no psychomotor agitation or retardation. Eye contact is good to fair as patient looks down at times. Speech is normal rate and rhythm and fluent with no pressure. Mood is depressed. Affect is constricted. Thought process is goal-directed and organized. Thought content: There is no evidence of passive thoughts of , suicidal ideation, plan for suicide, hallucinations, delusions. Reality testing is intact. Impulsivity is high. Insight is limited but improving. Diagnoses: [] 1. Bipolar 2 disorder (depressed) 2. Generalized anxiety disorder 3. Primary support and financial issues Plan: [] The patient will continue the IOP program at [facility] as the structure, support, education and group therapy will hopefully prevent worsening of the patient's symptoms that might require hospitalization. She felt safe during the interview and if it anytime she does not feel safe she will let us know or go to the emergency room. The risk, options, and possible complications of the medications were discussed with the patient and she understands and accepts these. The patient no medication changes were made today as the patient's Seroquel was increased yesterday by her outpatient psychiatrist. I will see the patient in follow-up while she is in the IOP program and she will continue to follow-up with her outpatient providers.
--- NOTE | 2022-07-01 08:19 | BH.AFTERPLAN ---
Aftercare Plan - Demographics Treatment End Date:: 07/01/22 Psychiatrist:: Perlita Brice Psychiatrist Office #:: [phone] [facility] [place]/IOP Therapist:: Shahana Garg Therapist Phone #:: [phone] - Plan Details Progress/Aftercare Plan Details:: Nara has responded well to treatment as evidenced by Nara consistently attending IOP sessions and her reduction of DSM-5 scores since admission. Nara always attentive and receptive to learning during group and individual sessions. Nara reports overall her mood is improved, and she is functioning better than she was several months ago. Nara's overall symptom reduction is 48% since admission with anxiety reducing by 58%, and depression decreasing by 40%. Nara has gained confidence in setting boundaries and increased her ability to manage her stress, triggers, and negative thinking. Nara will continue seeing her outpatient therapist at [facility], get medication management through [facility], and start IOP aftercare group on 07/14/22. Strategies for Success:: 1. MAINTENANCE!! Remember to pay attention to your emotions (mood chart), thoughts, and supports. 2. Keep up with those goals! Use the calendar you've made to stay on track and focused. 3. Remember, self-care is not selfish, it's necessary! Make decisions based on what will get you closer to finding yourself and reaching your personal and mental health goals. 4. Journal! Affirmations!! 5. Reach out (and keep up with) positive supports! Follow up with appointments and be around those who want to help you. 6. Watch out for being too much of an emotional sponge, you are not responsible for managing other people's emotions or happiness. 7. Challenge distortions!! 8. Set small goals daily. 9. Remember sometimes it is what it is but that doesn't mean you have to stay miserable. 10. Give yourself time to reflect on progress! You have made some good changes! - Appointments Appointments/Referrals to Other Services:: 1. Continue with weekly appointments at [facility] ([facility] or [place]) 2. Dr. Noble. 3. IOP aftercare starting 07/14/22 from 2:00-3:30pm - Medications Home Medications: Home Medications clonazepam 2 mg tablet (Klonopin) 2 mg PO TID anxiety 06/15/14 clopidogrel 75 mg tablet (Plavix) 75 mg PO QHS heart 07/03/16 glimepiride 2 mg tablet 4 mg PO DAILY blood sugar 01/09/17 atorvastatin 80 mg tablet (Lipitor) 80 mg PO QHS cholesterol lowering 03/29/18 aspirin 81 mg chewable tablet 81 mg PO DAILY@0800 heart health 07/23/20 empagliflozin 25 mg tablet (Jardiance) 25 mg PO DAILY 05/11/22 sulfamethoxazole 800 mg-trimethoprim 160 mg tablet (Bactrim DS) 1 tab PO BID 5 days #10 tabs 06/02/22 quetiapine 100 mg tablet (Seroquel) 150 mg PO QHS 06/29/22
--- NOTE | 2022-07-01 09:10 | BH.SGPN.GN ---
Behaviors/Verbalizations/Mental Status: [] Eye contact is good. Motor activity is appropriate. Appearance is casual. Speech is Appropriate. Mood is euthymic. Affect is full. Thoughts are linear and logical. No evidence of psychosis. Reviewed daily check in sheet and no reports of suicidal ideations or intent. Client Response/Progress/Benefit: [] Pt was an active participant in group discussion. Attentive. Daily symptom tracker notes /5 for agitation and 3/5 for depression/anxiety. Shared with the group that today is her last day in the IOP program. Discussed her progress in the program ?I was a mess when I started?. Shared her struggles with managing her mood specifically her anxiety. ?I?m still working on myself every day?. Gave example of anxiety this AM and skills that she was able to utilize. Shared some recent mental health wins. Benefited from group support, encouragement, and feedback. Will be discharged from [facility] today. Narrative Note: []
--- NOTE | 2022-07-01 10:10 | BH.SGPN.GN ---
Behaviors/Verbalizations/Mental Status: []Eye contact is fair. Alert and oriented. Motor activity is appropriate. Appearance is casual. grooming is appropriate. Speech is Appropriate. Mood is anxious. Affect is constricted. Thoughts are linear and logical. No evidence of psychosis or hallucinations. Client Response/Progress/Benefit: []Client active participate AEB listening attentively to others and providing contributions throughout. The group identified barriers to managing emotions such as unable to identify the emotion, negative self-talk, catastrophizing, jumping to conclusions, personalizing, and reading other?s body language. Client shared when her emotions are unmanaged she is mean and will do things that irritate the other person on purpose. Client engaged in activity, became irritated during activity but didn't give up despite reporting desire to quit. Client benefited from session to gain understanding on the importance of managing emotions to improve daily functioning. Client will continue IOP to increase consistent healthy coping, challenge negative thinking, and prevent decompensation.
--- NOTE | 2022-07-01 11:19 | BH.SGPN.GN ---
Behaviors/Verbalizations/Mental Status: []Pt alert and oriented, casual appearance. Eye contact good. Motor activity appropriate. Speech within normal limits. Affect congruent, mood euthymic and anxious. Thoughts linear, logical, no signs of hallucinations or delusions. Client Response/Progress/Benefit: []Pt engaged in session AEB pt listening attentively to peers, taking notes, and providing input. Attentive during psychoeducation on 4 zones of regulation. Pt able to identify feelings and behaviors pt exhibits for each zone.? Pt identified coping skills one can use to support self in each zone. Pt stated belief that pt is in the yellow zone today as pt feels anxious and irritable today, but not to the point of crisis. Pt reports spending time listening to calming music will help pt get out of the yellow zone today. Benefited from increased education on zones of regulation or stages of alertness for emotions and healthy coping skills to use for each zone. Pt will discharge from [facility] tx today and is scheduled to begin the aftercare program 07/14/22. Narrative Note: []
--- NOTE | 2022-07-01 11:53 | BH.DS_ITS ---
Discharge Summary - Demographics Date of Admission:: 05/10/22 Discharge Date: 07/01/22 Presenting Problems at Admission:: Pt is a 51-year-old female with a history of bipolar II, alcohol use disorder, and PTSD. Pt was a previous IOP pt and was referred back to the program by her outpatient therapist at [facility]. Pt's anxiety and depression had been worsening over the past several months due to multiple psychosocial stressors including pt having a major stroke, her having a heart attack, relationship issues with her boyfriend, and recent legal issues. At admission, pt endorsed a depressed mood with lack of energy, lack of motivation, passive thoughts of , poor sleep, and worthlessness. Pt stated she had less motivation to care for herself including managing her diabetes. Pt also reported constant anxiety, restlessness, panic attacks, and ruminations about her legal issues. Pt's symptoms were impacting her overall functioning and quality of life. Discharge Diagnoses:: Bipolar 2 disorder, recent episode depressed, without psychosis F 31.81; Generalized anxiety disorder; Rule out PTSD; Alcohol use disorder; Nicotine use disorder Reason for Discharge:: Pt has accomplished her Tx goals AEB her reduction in DSM-5 scores and self-report of improved ability to manage stressors. Pt no longer meets criteria for IOP level of care and will transition to outpatient counseling and IOP aftercare. - Treatment Progress During Treatment & Response: Pt has responded well to treatment as evidenced by Pt consistently attending IOP sessions and her reduction of DSM-5 scores since admission. Pt always attentive and receptive to learning during group and individual sessions. Pt reports overall her mood is improved, and she is functioning better than she was several months ago. Pt's overall symptom reduction is 48% since admission with anxiety reducing by 58%, and depression decreasing by 40%. Pt has gained confidence in setting boundaries and increased her ability to manage her stress, triggers, and negative thinking. Pt will continue seeing her outpatient therapist at [facility], get medication management through [facility], and start IOP aftercare group on 07/14/22. Issues Still to be Addressed:: Pt continues to struggle with interpersonal relationship issues and could benefit from ongoing work on boundaries, comm unication, emotional regulation, and increasing skills to promote self-esteem and independence. Pt also can benefit from continuing to write out daily tasks, keeping a calendar, and tracking her moods. Discharge Recommendations/Instructions:: Pt will continue seeing her outpatient providers at [facility] and [facility]. Pt sees her therapist at [facility] weekly and has an appointment on 07/06/22. Pt recently saw Dr. Crespo and pt will begin IOP aftercare on 07/14/22. Discharge Handout: Complete Discharge Handout with client on aftercare options and continuity of care.
== END 2022-07-01 12:10 | disposition home or self-care (01) ==
LOC: BHIOP 08:09
PROVIDERS: PCP Family Medicine; Visit Provider Psychiatry & Neurology Psychiatry
DX: F31.81 Bipolar II disorder (principal); F41.1 Generalized anxiety disorder; F10.90 Alcohol use, unspecified, uncomplicated; Z72.0 Tobacco use
CPT/HCPCS: 99213; H2012; H2020; S9480; 90832; 90834

== ENCOUNTER 2022-07-21 12:00 | Outpatient (RCR) | payer MEDICAID, SELFPAY ==
--- NOTE | 2022-07-21 14:00 | BH.COMM ---
Communication Note - Communication with Client Communication Note: Presented completed IOP and presents today to starting relapse prevention group which meets once weekly (1.5 hours) for 8 weeks. Case discussed with Dr. Diaz with plan to admit with dx of F31.81
--- NOTE | 2022-07-21 14:00 | BH.SGPN.GN ---
Behaviors/Verbalizations/Mental Status: []Pt alert and oriented, casually dressed and groomed. Eye contact good. Motor activity appropriate. Speech within normal limits. Affect congruent, mood euthymic. Thoughts linear, logical, no signs of hallucinations or delusions. Client Response/Progress/Benefit: []Pt responded well to session AEB sharing and listening attentively to others. Pt did not have scheduled appointments this week with her outpatient providers, but pt has been taking her medications consistently. Pt shared she left her boyfriend and moved back with her . Pt has been using opposite action and affirmations to cope during this time. Pt participated in group discussion defining affirmations and why they are important. Pt provided insight throughout clinician?s presentation of tips for writing personal affirmations. Pt wrote own affirmations, including ?one day at a time.? Pt appeared to benefit from increased knowledge of affirmation writing and increased self-awareness. Will continue aftercare treatment to reinforce healthy coping skills and promote gains. ? Narrative Note: []
--- NOTE | 2022-07-21 15:38 | BH.MTP ---
Master Treatment Plan - Patient Information Program Physician:: Dr. Perlita Brice Primary Therapist:: Shahana HERNANDEZ - Psychiatric Diagnoses Psychiatric Diagnoses:: Bipolar 2 disorder, recent episode depressed, without psychosis F ; Generalized anxiety disorder; Rule out PTSD; Alcohol use disorder; Nicotine use disorder Diagnosis Code(s):: F - Estimated LOS Estimated LOS (in weeks):: 8 Problem/Goal #1 - Problem/Goal #1 Stated Goal:: client will maintain or see a reduction in symptoms AEB client score on the DSM 5 cross-cutting measure and improve client's daily functioning. - Objectives Objective #1 Stated Objective: Client will continue to consistently apply healthy coping skills to maintain progress made in IOP tx. Interventions: Through group therapy, client will review warning signs and triggers as well as healthy coping skills learned in IOP tx to successfully maintain gains while transitioning into outpatient therapy. Discharge Criteria: Client will have accomplished this goal when client's score on the DSM-5 cross-cutting measure has maintained or reduced over a 8 week period. Target Date: 09/15/22 Review Date: 08/18/22 Status: open Objective #2 Stated Objective: Client will learn and utilize 2-3 maintenance strategies to prevent decompensation from original IOP DSM-5 scores. Interventions: Through group therapy, client will be provided with education on healthy maintenance behaviors, relapse prevention techniques, and healthy coping strategies. Discharge Criteria: Client will have accomplished this goal when can report using at least 2 maintenance skills to prevent decompensation compared to original IOP DSM-5 scores Target Date: 09/15/22 Review Date: 08/18/22 Status: open
--- NOTE | 2022-08-11 14:00 | BH.SGPN.GN ---
Behaviors/Verbalizations/Mental Status: []Pt alert and oriented, neatly dressed and groomed. Eye contact good. Motor activity appropriate. Speech within normal limits. Affect flat, mood depressed and disappointed. Thoughts linear, logical, no signs of hallucinations or delusions. Client Response/Progress/Benefit: []Pt receptive of session, engaged throughout. Pt reports she has had a rough week due to pt seeing her ex-boyfriend and ?I?m trying to break away from him, but I went back a little.?? Pt shared she did have some positives over the weekend, but right now she is struggling to see these. Receptive of discussion on personal accountability and its importance in maintaining mental health stability. Pt worked cooperatively with group to identify benefits of maintaining personal accountability. Engaged in brainstorming strategies for improving ability to hold themselves accountable. Reported wanting to work on maintaining difficult boundaries by writing out why she needs these boundaries and hanging it up for pt to see. Pt seemed to benefit from support from peers and increasing understanding of personal accountability benefits and strategies. Will continue IOP aftercare group to maintain gains and prevent decompensation. Narrative Note: []
--- NOTE | 2022-08-11 16:16 | BH.TPR ---
Treatment Plan Review Date of Admission:: 07/22/22 Date of Treatment Plan Review:: 08/11/22 Admitting Diagnoses:: Bipolar 2 disorder, recent episode depressed, without psychosis F 31.81; Generalized anxiety disorder; Rule out PTSD; Alcohol use disorder; Nicotine use disorder Current Diagnoses:: Bipolar 2 disorder, recent episode depressed, without psychosis F 31.81; Generalized anxiety disorder; Rule out PTSD; Alcohol use disorder; Nicotine use disorder Patient's Response to Treatment:: Pt continues to respond well to treatment AEB pt's engagement in group discussions and continued reporting use of skills outside treatment environment. Pt's attendance is not always consistent, but pt is engaged when present. Status of Current Problems and Symptoms: Pt reporting continued anxiety and depression but improved ability to manage sx. Pt is living with her again, but reports she still sees her ex-boyfriend which is an ongoing stressor as he is an addict. Pt's management of her medical issues is a stressor and pt admits she is not consistent with her diabetes medication. Problem #1 Problem Name:: Pt will maintain or see a reduction in sx Status of Goals:: Obj 1 - DSM 5 scores display a 10% decrease in overall sx compared to IOP admission. Based on pt's self-report she has continued to maintain improvements in mood, self-compassion, and some areas of boundary setting. Obj 2 - complete with ongoing work encouraged. Pt has been reporting using positive affirmations, increased engagement in activities she enjoys, and opposite action to cope. Can continue to further improve upon consistency of use. Team Recommendations:: Recommended client continue IOP aftercare group in addition to attending regular outpatient counseling in order to maintain gains.
== END 2022-08-13 23:59 ==
LOC: BHOG 12:00
PROVIDERS: PCP Family Medicine; Visit Provider Psychiatry & Neurology Psychiatry
DX: F31.81 Bipolar II disorder (principal); F41.1 Generalized anxiety disorder; Z72.0 Tobacco use; F10.91 Alcohol use, unspecified, in remission
CPT/HCPCS: 90853

== ENCOUNTER 2022-08-16 07:26 | Outpatient (RCR) | payer MEDICAID, SELFPAY ==
--- NOTE | 2022-09-01 14:00 | BH.SGPN.GN ---
Behaviors/Verbalizations/Mental Status: []Client alert and oriented, casually dressed and groomed. Eye contact good. Motor activity appropriate. Speech within normal limits. Affect congruent, mood anxious and euthymic. Thoughts linear, logical, no signs of hallucinations or delusions. Client Response/Progress/Benefit: []Pt receptive of session, engaged throughout. Pt completed the aftercare self-reflection worksheet sharing they see their therapist next week and psychiatrist in two months, they are taking medications as prescribed, and have been using opposite action and small goal setting as healthy coping skills. Receptive of discussion on healthy habits and habit formation, as well its importance in maintaining mental health stability. Pt worked cooperatively with group to identify benefits of developing and maintaining healthy habits. Engaged in brainstorming strategies for identifying and changing unhealthy habit patterns. Reported she wants to work on challenging a current unhealthy habit of smoking when stressed with intentionally changing the environment she keeps her cigarettes in to the basement so she is less likely to go. Pt seemed to benefit from support from peers and increasing understanding of healthy habit formation benefits and strategies. Will continue IOP aftercare group and tx to maintain gains and prevent decompensation. Narrative Note: []
--- NOTE | 2022-09-01 16:25 | BH.TPR ---
Treatment Plan Review Date of Admission:: 07/22/22 Date of Treatment Plan Review:: 09/01/22 Admitting Diagnoses:: Bipolar 2 disorder, recent episode depressed, without psychosis F 31.81; Generalized anxiety disorder; Rule out PTSD; Alcohol use disorder; Nicotine use disorder Current Diagnoses:: Bipolar 2 disorder, recent episode depressed, without psychosis F 31.81; Generalized anxiety disorder; Rule out PTSD; Alcohol use disorder; Nicotine use disorder Patient's Response to Treatment:: Pt's response to treatment has been variable this month as pt has not attended as frequently. When pt is present she is engaged, takes notes, and connects with peers. Pt's outpatient therapist is on maternity leave, but pt is seeing another counselor at [facility] during this time. Status of Current Problems and Symptoms: Pt reporting continued anxiety and depression but improved ability to manage sx. Pt's ex-boyfriend will be going to rehab which pt is hopeful about. Pt will be living in his apartment while he is gone. Pt continues to struggle with boundary setting within this relationship. Pt's management of her medical issues is a stressor and pt admits she is not consistent with her diabetes medication. Problem #1 Problem Name:: Pt will maintain or see a reduction in sx Status of Goals:: Obj 1 - since last tx plan review pt's DSM-5 scores display a 10% decrease in overall sx compared to IOP admission . Pt did not fill out another DSM-5 for this review. Based on pt's self-report she has continued to maintain improvements in mood, self-compassion, and some areas of boundary setting. Obj 2 - complete with ongoing work encouraged. Pt has been reporting using positive affirmations, increased engagement in activities she enjoys, and opposite action to cope. Can continue to further improve upon consistency of use and boundary setting with her boyfriend. Team Recommendations:: Recommended client continue IOP aftercare group in addition to attending regular outpatient counseling in order to maintain gains. Pt is to discharge from IOP aftercare at the end of this month.
== END 2022-09-13 23:59 ==
LOC: BHOG 07:26
PROVIDERS: PCP Family Medicine; Visit Provider Psychiatry & Neurology Psychiatry
DX: F31.81 Bipolar II disorder (principal); F41.1 Generalized anxiety disorder; F10.90 Alcohol use, unspecified, uncomplicated; Z72.0 Tobacco use
CPT/HCPCS: 90853

== ENCOUNTER 2022-09-14 07:27 | Outpatient (RCR) | payer MEDICAID, SELFPAY ==
--- NOTE | 2022-09-22 14:00 | BH.SGPN.GN ---
Behaviors/Verbalizations/Mental Status: []Client alert and oriented, casually dressed. Eye contact good. Motor activity appropriate. Speech within normal limits. Affect congruent, mood euthymic and anxious. Thoughts linear, logical, no signs of hallucinations or delusions. Client Response/Progress/Benefit: []Client receptive of session, engaged and providing supportive feedback throughout group. Reports feeling ?overwhelmed? today as she has several stressors, however, feels she is coping with these in healthy ways. Reports she met with her outpatient therapist yesterday, reports she sees her psychiatrist regularly, and is taking her medication as prescribed. Identified skills she has been using as sitting with the uncomfortable, ivett, and listening to music. Client engaged in the discussion about self-love and worked with the group to identify strategies for increasing self-love. Reports wanting to work on self-love by reminding herself to ?journal the positive and remind herself of why she set some of her personal goals in the first place?. Seemed to benefit from reviewing treatment progress and strategies for managing current stressors, as well as learning about how to increase self-love. Client to discharge from treatment given progress and program completion. Will continue with individual outpatient counseling. Narrative Note: []
--- NOTE | 2022-09-22 16:30 | BH.DS ---
Discharge Summary - Demographics Date of Admission:: 07/21/22 Discharge Date: 09/22/22 Presenting Problems at Admission:: Pt discharged from IOP tx and transitioned to IOP aftercare to maintain gains pt made in IOP and to reinforce healthy coping skills. At admission to IOP aftercare, pt continued to report symptoms of depression, anxiety, and irritability but of reduced intensity and frequency. Pt also was experiencing stress from her relationships, finances, health issues, and living situation. Discharge Diagnoses:: Bipolar 2 disorder, recent episode depressed, without psychosis F 31.81; Generalized anxiety disorder; Rule out PTSD; Alcohol use disorder; Nicotine use disorder Reason for Discharge:: Pt has accomplished tx goals AEB ability to maintain mood stability and gains made in IOP. Pt's DSM-5 scores decreased by an additional 43% from IOP admission. Pt will transition to traditional outpatient counseling. - Treatment Progress During Treatment & Response: Pt responded well and made progress in IOP aftercare as evidenced by pt's participation in group discussions and self-report of consistently applying coping skills. Pt's overall DSM-5 scores decreased by 43% from IOP admission. Pt?s depression decreased by 20% since original IOP admission and pt's scores for anxiety decreased by 50% compared to original IOP scores. Additionally, at discharge Pt was reporting consistently seeing her therapist, using healthy coping skills, and practicing healthy coping skills. Pt also reported increased ability to manage stressors and utilize self-care. Issues Still to be Addressed:: Pt could benefit from ongoing work on boundaries, communication, emotional regulation, and increasing skills to promote self-esteem and independence. Pt also can benefit from continuing to write out daily tasks, keeping a calendar, and tracking her moods. Discharge Recommendations/Instructions:: Pt will follow up with counseling at [facility] and medication management through [facility]. Discharge Handout: Complete Discharge Handout with client on aftercare options and continuity of care.
== END 2022-09-23 07:02 | disposition home or self-care (01) ==
LOC: BHOG 07:27
PROVIDERS: PCP Family Medicine; Visit Provider Psychiatry & Neurology Psychiatry
DX: F31.81 Bipolar II disorder (principal); F41.1 Generalized anxiety disorder; F10.90 Alcohol use, unspecified, uncomplicated; Z72.0 Tobacco use
CPT/HCPCS: 90853

== ENCOUNTER 2022-11-29 15:59 | Emergency (ER) | payer MEDICAID, SELFPAY ==
[2022-11-29 16:03] VITALS: BP 132/82; PULSE 73; RESP 13; TEMP 36.4; O2SAT 95; BMI 25.1
[2022-11-29 16:09] VITALS: BMI 25.1
--- NOTE | 2022-11-29 16:41 | CT_ITS ---
STUDY: CT BRAIN WITHOUT CONTRAST REASON FOR EXAM: Female, 52 years old. Unilateral weakness. History of 2 strokes with prior craniotomy. RADIATION DOSAGE (If Supplied By Facility): CTDIvol = ( 47.06 ) mGy, DLP = ( 907.97 ) mGycm TECHNIQUE: Transaxial CT imaging of the brain was performed without administration of intravenous contrast material. Individualized dose optimization techniques were used for this CT. COMPARISON: June 02, 2022. FINDINGS: Normal soft tissue structures. Evidence of remote bilateral temporal craniotomies. There is moderate cerebral atrophy with widening of the extra-axial spaces and ventricular dilatation. There are areas of decreased attenuation within the white matter tracts of the supratentorial brain, consistent with microvascular disease changes. Normal basal ganglia and thalami. Normal brainstem. Normal cerebellum. There is no intracranial hemorrhage. There are no findings of an acute ischemic infarction. Normal visualized paranasal sinuses. CT/Brain/Head without Contrast IMPRESSION: Chronic involutional changes without evidence of acute intracranial or calvarial abnormality. There is no significant interval change. AIDOC was utilized to assist in identifying pertinent positive findings in this case. Electronically Signed: Yosi Wheatley DO at 17:46 EDT Reading Location ID and State: [address] [place] [address] Tel [phone], Service support ,
--- NOTE | 2022-11-29 16:42 | EKG12_ITS ---
Test Reason : NEURO S/SX Blood Pressure : / mmHG Vent. Rate : 068 BPM Atrial Rate : 068 BPM P-R Int : 138 ms QRS Dur : 076 ms QT Int : 400 ms P-R-T Axes : 029 029 072 degrees QTc Int : 425 ms Normal sinus rhythm Normal ECG Confirmed by ANA PETERSEN, CLARY ([id number]), editor managing director DENISSE DEMARCO ([id number]) on 12/05/2022 10:00:12 AM Referred By: Confirmed By:CLARY PEREZ MD
[2022-11-29 17:05] LABS: Absolute Lymphocyte Count 2.36 X10^3/uL (0.83-4.51); Absolute Neutrophil Count 5.3 X10^3/uL (2.0-7.7); Basophil# 0.07 X10^3/uL; Basophil% 0.8 % (0-1); Eosinophil# 0.24 X10^3/uL; Eosinophils% 2.8 % (0-5); Hematocrit 48.1 % (37-47); Hemoglobin 16.3 g/dL (12.0-15.0); Lymphocyte # 2.36 X10^3/ul (0.83-4.51); Lymphocyte % 27.4 % (19-41); Mean Corp Hgb Conc 33.9 g/dL (32-36); Mean Corpuscular Hgb 31.2 pg (27.0-32.0); Mean Platelet Vol. 11.2 fl (6.2-12.0); Monocyte# 0.61 X10^3/uL; Monocyte% 7.1 % (0-10); NRBC Flagged by Analyzer 0 % (0-5); Neutrophil % 61.6 % (47-70); Platelet Count 165 K/mm3 (150-450); RBC Distribution Width CV 12.1 % (11.6-14.6); RBC Distribution Width SD 41.1 fl (35.1-43.9); Red Blood Count 5.23 M/mm3 (4.2-5.4); White Blood Count 8.6 K/mm3 (4.4-11.0)
[2022-11-29 17:24] LABS: Alcohol, Blood (Medical)-Serum < 3.0 mg/dL
--- NOTE | 2022-11-29 17:34 | RAD_ITS ---
STUDY: X-RAY CHEST REASON FOR EXAM: Female, 52 years old. Dizziness. TECHNIQUE: Single AP portable view of the chest. STUDY: X-RAY CHEST REASON FOR EXAM: Female, 52 years old. Dizziness. TECHNIQUE: Single AP portable view of the chest. COMPARISON: June 02, 2022. FINDINGS: COMPARISON: June 02, 2022. FINDINGS: The lungs are clear and expanded. There is no demonstrated pleural abnormality. Normal size heart. Normal mediastinum and rupal. Normal visualized pulmonary arteries. Normal visualized aortic arch and descending thoracic aorta. There are diffuse degenerative changes of the visualized thoracic spine. Normal visualized ribs, clavicles, and shoulders. There is no demonstrated abnormality of the visualized soft tissue structures of the upper abdomen. RAD/Chest 1 View (Portable) IMPRESSION: No acute cardiopulmonary disease or major interval change. Electronically Signed: Yosi Wheatley DO at 17:44 EDT ,
[2022-11-29 17:37] LABS: ALB/GLOB Ratio 0.9 RATIO (0.9-2.4); AST(SGOT) 20 U/L (15-37); Alanine Aminotransfer ALT/SGPT 36 U/L (13-56); Albumin, Serum 3.5 g/dL (3.2-5.0); Alkaline Phosphatase 82 U/L (45-117); Anion Gap 1 (5-15); BUN 20 mg/dL (7-18); BUN/Creat Ratio 21.6 RATIO (10-20); Calcium,Total 9.1 mg/dL (8.5-10.1); Chloride 110 mmol/L (98-107); Creatinine, Serum 0.93 mg/dL (0.55-1.02); EST Glomerular Filtration Rate 68 mL/min (>60); Est Glom Filt Rate - Afr Amer 82 mL/min (>60); Globulin 3.8 g/dL (2.2-4.2); Glucose 113 mg/dL (74-106); Lipase 31 U/L (13-75); Potassium 4.3 mmol/L (3.5-5.1); Protein, Total 7.3 g/dL (6.4-8.2); Sodium Level 136 mmol/L (136-145); Troponin-I HS 4 pg/mL (3.0-54.0)
--- NOTE | 2022-11-29 17:58 | EDS_ITS ---
HPI History of Present Illness Chief Complaint: Neuro S/Sx Informant: patient Narrative Narrative: Patient is a 52-year-old female with history of stroke with left-sided weakness, alcoholic pancreatitis (however she denies alcohol use), hypertension hyperlipidemia as well as diabetes mellitus presenting with vertigo and left arm weakness. Patient states for the past 3 days she has had a room spinning sensation especially when she bends down or lays on her right side. She is also been having lightheadedness which she describes as a fuzzy feeling. She had episode of tingling in her left arm that lasted for about an hour at 2 PM today. She also notes that today her speech has been slower. She called her PCP office and they recommend she call 911 and come to the emergency room. She has had some intermittent nausea. She denies any vision changes. She does continue to use tobacco. Her significant other at the bedside reports possible of right facial droop that seems new to him. Patient states he has a history of stroke at age 40 and in 2021 had an episode of left-sided weakness. Patient denies any chest pain, shortness of breath, urinary symptoms, abdominal symptoms or urinary symptoms. Has no other complaints at this time. Denies any falls or head injuries. [facility] Medical History Alcohol use disorder Bipolar 2 disorder, major depressive episode CVA (cerebral vascular accident) Diabetic neuropathy DM2 (diabetes mellitus, type 2) Generalized anxiety disorder Hemiplegia and hemiparesis following cerebral infarction affecting left non- dominant side HLD (hyperlipidemia) HTN (hypertension) Nicotine use disorder PTSD (post-traumatic stress disorder) Tobacco dependence due to cigarettes Urinary tract infection with hematuria Home Medications clonazepam 2 mg tablet (Klonopin) 2 mg PO TID anxiety 06/15/14 [History Last Taken 07/22/20] clopidogrel 75 mg tablet (Plavix) 75 mg PO QHS heart 07/03/16 [History Last Taken 07/22/20] glimepiride 2 mg tablet 4 mg PO DAILY blood sugar 01/09/17 [History Last Taken 07/22/20] atorvastatin 80 mg tablet (Lipitor) 80 mg PO QHS cholesterol lowering 03/29/18 [History Last Taken 07/22/20] aspirin 81 mg chewable tablet 81 mg PO DAILY@0800 [facility] 07/23/20 [History Last Taken 07/22/20] empagliflozin 25 mg tablet (Jardiance) 25 mg PO DAILY 05/11/22 [History Last Taken Unknown] quetiapine 100 mg tablet (Seroquel) 150 mg PO QHS 06/29/22 [History Last Taken Unknown] meclizine 25 mg tablet 25 mg PO 4X/DAY PRN PRN Dizziness #20 tabs 11/29/22 [Rx Last Taken Unknown] sulfamethoxazole 800 mg-trimethoprim 160 mg tablet (Bactrim DS) 1 tab PO Q12H #9 tabs 11/29/22 [Rx Last Taken Unknown] Allergy/AdvReac Type Severity Reaction Status Date / Time azithromycin Allergy Diarrhea Verified 11/29/22 16:06 doxycycline Allergy Rash Verified 11/29/22 16:06 egg Allergy Unknown Verified 11/29/22 16:06 Penicillins Allergy Rash Verified 11/29/22 16:06 cyclobenzaprine AdvReac Rash Verified 11/29/22 16:06 [From Flexeril] gabapentin AdvReac Other Verified 11/29/22 16:06 Family History Grandmother Cancer Heart disease Myocardial infarction Aortic aneurysm rupture Hypertension Father Myocardial infarction Heart disease Hypertension Surgical History History of hysterectomy S/P cholecystectomy S/P tonsillectomy and adenoidectomy Social History household members: none Smoking Status: Current every day smoker tobacco type: cigarettes substance use type: does not use ROS ROS ED Constitutional Constitutional ED: Reports other Details: Dizziness, vertigo, lightheadedness ; Denies chills or fever(s) Eyes Eyes: Denies change in vision or diplopia ENT ENT ED: Denies sore throat Cardiovascular Cardiovascular: Denies chest pain or palpitations Respiratory/Chest Respiratory/Chest: Denies cough or dyspnea Gastrointestinal Gastrointestinal: Denies abdominal pain or nausea Genitourinary Genitourinary ED: Denies dysuria or hematuria Musculoskeletal Musculoskeletal: Denies arthralgias, back pain or myalgias Integumentary Denies rash Neurologic Neurologic: Reports paresthesias LUE and weakness; Denies headache(s) Psychiatric Psychiatric: Denies anxiety Hematologic/Lymphatic Hematologic/Lymphatic: Denies easy bleeding or easy bruising EXAM Physical Exam Const Vital Signs: 11/29/22 16:03 11/29/22 18:00 11/29/22 18:00 Temperature 97.6 F L Temperature Source Temporal Pulse Rate 73 80 Pulse Rate [Lying] 67 Pulse Rate [Sitting (for 1 minute prior to obtaining)] 70 Pulse Rate [Standing (for 1 minute prior to obtaining)] 73 Respiratory Rate 13 20 H Blood Pressure 132/82 H 104/54 L Blood Pressure [Lying] 120/86 H Blood Pressure [Sitting (for 1 minute prior to obtaining)] 108/83 H Blood Pressure [Standing (for 1 minute prior to obtaining)] 121/90 H Blood Pressure Mean 98 70 Blood Pressure Mean [Lying] 97 Blood Pressure Mean [Sitting (for 1 minute prior to obtaining)] 91 Blood Pressure Mean [Standing (for 1 minute prior to obtaining)] 100 Pulse Ox 95 97 Oxygen Delivery Method Room Air Room Air 11/29/22 20:28 11/29/22 22:00 Temperature Temperature Source Pulse Rate 68 66 Pulse Rate [Lying] Pulse Rate [Sitting (for 1 minute prior to obtaining)] Pulse Rate [Standing (for 1 minute prior to obtaining)] Respiratory Rate 15 12 Blood Pressure 119/84 H 127/84 H Blood Pressure [Lying] Blood Pressure [Sitting (for 1 minute prior to obtaining)] Blood Pressure [Standing (for 1 minute prior to obtaining)] Blood Pressure Mean 95 98 Blood Pressure Mean [Lying] Blood Pressure Mean [Sitting (for 1 minute prior to obtaining)] Blood Pressure Mean [Standing (for 1 minute prior to obtaining)] Pulse Ox 95 97 Oxygen Delivery Method Room Air Room Air Positive well nourished and well developed General Appearance ED: well developed and NAD HEENT Reports TM's clear and moist mucous membranes Negative for trauma Tympanic Membrane ED: Yes TM's clear Eyes PERRL and EOMs intact bilaterally Eyes Narrative: Horizontal nystagmus with rightward gaze Chest Wall inspection of chest normal and palpation of chest normal Resp normal respiratory effort and clear to auscultation bilaterally Cardio regular rate, regular rhythm and no murmurs GI normal to inspection, nondistended, normoactive bowel sounds and non-tender Extremity normal to inspection General Extremety ED: Negative for edema or tenderness General Extremity: Negative for edema Neuro oriented x3 Neuro Narrative: Patient has a subtle right facial droop. Subjective paresthesias to the left side of the face. No truncal ataxia. Normal [id number] bilaterally. Patient does have some difficulty with [id number]-lj-[id number] with her left arm but is able to touch my finger appropriately. Normal [id number]-[id number] with the right. NIH equals 2 for ataxia and facial droop. Speech is slowed and deliberate but she is not aphasic or slurred Sensorium / Orientation: alert Psych mental status grossly normal Psych Narrative: Flat affect Mood & Affect: Negative for depressed or anxious Skin no rashes or lesions noted and no wounds MDM MDM MDM Narrative Medical decision making narrative: Patient is evaluated for constellation of 3 days of dizziness, vertigo and episode of tingling in her left arm. Patient does have a history of prior stroke. She is orthostatic positive in the emergency room. Suspect she has peripheral vertigo from the right side is rightward head movement recreates his symptoms. She is given meclizine for this. On repeat evaluation she is feeling better. While she does have a slight facial droop she then goes on to tell me that that is chronic for her from her prior stroke. I question if her orthostasis exacerbated her prior stroke symptoms. Her urinalysis is concerning for infection with 10-25 white blood cells and 1+ bacteria. Urine culture sent and she started on Bactrim. I did discuss admission for further definitive stroke rule out versus outpatient follow-up. Patient states she would prefer to go home. Patient is given return precautions. Encouraged to follow-up with her primary care doctor. CT of the brain does not show any acute process. Lab Data Attestation: I reviewed the patient's lab results. Labs: Laboratory Results - last 24 hr 11/29/22 11/29/22 11/29/22 17:00 17:00 17:00 WBC 8.6 RBC 5.23 Hgb 16.3 H Hct 48.1 H MCV 92.0 MCH 31.2 MCHC 33.9 RDW Std Deviation 41.1 RDW Coeff of Arlene 12.1 Plt Count 165 MPV 11.2 Immature Gran % (Auto) 0.300 Neut % (Auto) 61.6 Lymph % (Auto) 27.4 [place] % (Auto) 7.1 Eos % (Auto) 2.8 Baso % (Auto) 0.8 Absolute Neuts (auto) 5.3 Absolute Lymphs (auto) 2.36 Nucleated RBC % 0 Sodium 136 Potassium 4.3 Chloride 110 H Carbon Dioxide 25.0 Anion Gap 1 L BUN 20 H Creatinine 0.93 Estim Creat Clear Calc 67.00 Est GFR (MDRD) Af Amer 82 Est GFR (MDRD) Non-Af 68 BUN/Creatinine Ratio 21.6 H Glucose 113 H Calcium 9.1 Total Bilirubin 0.40 AST 20 ALT 36 Alkaline Phosphatase 82 Troponin I High Sens 4 Total Protein 7.3 Albumin 3.5 Globulin 3.8 Albumin/Globulin Ratio 0.9 Lipase 31 Urine Color Urine Clarity Urine pH Ur Specific [place] Urine Protein Urine Glucose (UA) Urine Ketones Urine Occult Blood Urine Nitrite Urine Bilirubin Urine Urobilinogen Ur Leukocyte Esterase Urine RBC Urine WBC Ur Squamous Epith Cells Urine Bacteria Urine Mucus Urine Opiates Screen Urine Methadone Screen Ur Barbiturates Screen Ur Phencyclidine Scrn Ur Amphetamines Screen MDMA (Ecstasy) Screen U Benzodiazepines Scrn Urine Cocaine Screen U Cannabinoids Screen Ur Drug Screen Comment Ethyl Alcohol < 3.0 11/29/22 11/29/22 18:05 18:05 WBC RBC Hgb Hct MCV MCH MCHC RDW Std Deviation RDW Coeff of Arlene Plt Count MPV Immature Gran % (Auto) Neut % (Auto) Lymph % (Auto) [place] % (Auto) Eos % (Auto) Baso % (Auto) Absolute Neuts (auto) Absolute Lymphs (auto) Nucleated RBC % Sodium Potassium Chloride Carbon Dioxide Anion Gap BUN Creatinine Estim Creat Clear Calc Est GFR (MDRD) Af Amer Est GFR (MDRD) Non-Af BUN/Creatinine Ratio Glucose Calcium Total Bilirubin AST ALT Alkaline Phosphatase Troponin I High Sens Total Protein Albumin Globulin Albumin/Globulin Ratio Lipase Urine Color Yellow Urine Clarity Sl. Cloudy Urine pH 5.0 Ur Specific [place] 1.020 Urine Protein 15 H Urine Glucose (UA) 1000 H Urine Ketones Negative Urine Occult Blood 50 H Urine Nitrite Negative Urine Bilirubin Negative Urine Urobilinogen Normal Ur Leukocyte Esterase 500 H Urine RBC 0-5 SEEN Urine WBC 10-25 SEEN Ur Squamous Epith Cells 5-10 SEEN Urine Bacteria 1+ Urine Mucus 0 SEEN Urine Opiates Screen NEGATIVE Urine Methadone Screen NEGATIVE Ur Barbiturates Screen NEGATIVE Ur Phencyclidine Scrn NEGATIVE Ur Amphetamines Screen NEGATIVE MDMA (Ecstasy) Screen NEGATIVE U Benzodiazepines Scrn NEGATIVE Urine Cocaine Screen NEGATIVE U Cannabinoids Screen NEGATIVE Ur Drug Screen Comment Ethyl Alcohol Radiography Diagnostic Testing: Clinical Impression(s) from Imaging Studies Brain CT 11/29/22 16:41 IMPRESSION: Chronic involutional changes without evidence of acute intracranial or calvarial abnormality. There is no significant interval change. AIDOC was utilized to assist in identifying pertinent positive findings in this case. Electronically Signed: Yosi WheatleyDO at 17:46 EDT Reading Location ID and State: [address] [place] [address] Tel [phone], Service support , Chest X-Ray 11/29/22 17:34 IMPRESSION: No acute cardiopulmonary disease or major interval change. Electronically Signed: Yosi WheatleyDO at 17:44 EDT Reading Location ID and State: [address] [place] [address] Tel [phone], Service support , Rhythm Strip Rhythm Strip: Sinus Rhythm Rate: 68 Ectopy: None EKG Initial EKG: Attestation: I personally reviewed and interpreted this EKG as follows: Interpretation: Sinus Rhythm Comments: Normal sinus rhythm rate of 60 bpm Normal axis Normal intervals Normal ST segments Compared to prior EKG on 06/02/2022, no acute changes Discharge Plan Triage Chief Complaint: Neuro S/Sx ED Provider: Adrianne Lowry Dx/Rx/DC Orders Clinical Impression: Vertigo, Orthostatic dizziness, UTI (urinary tract infection) Instructions: ED Cystitis Female Adult, ED Vertigo, Unspecified Prescriptions: New meclizine 25 mg tablet 25 mg PO 4X/DAY PRN PRN (Reason: Dizziness) Qty: 20 0RF sulfamethoxazole-trimethoprim [Bactrim DS] 800-160 mg tablet 1 tab PO Q12H Qty: 9 0RF No Action clonazepam [Klonopin] 2 MG tablet 2 mg PO TID clopidogrel [Plavix] 75 MG tablet 75 mg PO QHS glimepiride 2 MG tablet 4 mg PO DAILY Label Comments: atorvastatin [Lipitor] 80 MG tablet 80 mg PO QHS aspirin 81 MG tablet,chewable 81 mg PO DAILY@0800 Jardiance 25 mg Tablet 25 mg PO DAILY quetiapine [Seroquel] 100 mg Tablet 150 mg PO QHS Primary Care Provider: Ran Dill Referrals: Ran Dill MD [Primary Care Provider] - Activity Restrictions/Additional Instructions: Drink lots of fluids. If you have progression or worsening your symptoms please return to the emergency room. Follow-up with your primary care doctor closely. Disposition Disposition: Home, Self Care
[2022-11-29 18:00] VITALS: BP 104/54; BP 108/83; BP 120/86; BP 121/90; PULSE 67; PULSE 70; PULSE 73; PULSE 80; RESP 20; O2SAT 97
[2022-11-29] MEDS: Meclizine HCl 25 MG Tablet PO (18:12)
[2022-11-29 18:35] LABS: Mucous, Urine 0 SEEN /hpf (<or=2+)
[2022-11-29 18:36] LABS: Color, Urine Yellow (Yellow); Glucose, Dipstick 1000 mg/dl (Normal); Ketone-Dipstick Negative (Negative); Leukocyte Esterase-Dipstick 500 /ul (Negative); Nitrite-Dipstick Negative (Negative); Occult Blood-Urine 50 /ul (Negative); Protein-Dipstick 15 mg/dl (Negative); Urine Bilirubin Dipstick Negative (Negative); Urine Clarity Sl. Cloudy (Clear); Urine Urobilinogen Normal (Normal)
[2022-11-29 18:45] LABS: Bacteria 1+ /hpf (None Seen); Red Blood Cells-Urine 0-5 SEEN /hpf (0-5); Squamous Epithelial Cells - UA 5-10 SEEN /hpf (5-10); White Blood Cells 10-25 SEEN /hpf (0-5)
[2022-11-29 19:00] LABS: Amphetamine Urine VISTA NEGATIVE (<1000 ng/mL); Barbiturate Urine VISTA NEGATIVE (< 200 ng/mL); Benzodiazepine Urine VISTA NEGATIVE (< 200 ng/mL); Cocaine Urine VISTA NEGATIVE (< 300 ng/mL); Ecstacy Urine VISTA NEGATIVE (< 500 ng/mL); Methadone Urine VISTA NEGATIVE (< 300 ng/mL); PCP Urine VISTA NEGATIVE (< 25 ng/mL); THC Urine VISTA NEGATIVE (< 50 ng/mL); Vista UDS pH Range 5
[2022-11-29 20:28] VITALS: BP 119/84; PULSE 68; RESP 15; O2SAT 95
[2022-11-29] MEDS: 0.9% Normal Saline 1,000 ML 999 ML IV (20:39)
[2022-11-29] MEDS: Smz/Tmp Ds Tablet 1 TABLET PO (21:25)
[2022-11-29 22:00] VITALS: BP 127/84; PULSE 66; RESP 12; O2SAT 97
[2022-11-29 23:09] VITALS: BP 114/77; PULSE 68; RESP 17; O2SAT 95
--- NOTE | 2022-11-29 23:18 | ED.RN ---
Pt left before d/c instructions could be given, IV taken out by this RN prior to pt leaving.
== END 2022-11-29 23:17 | disposition home or self-care (01) ==
PROVIDERS: Emergency Provider Emergency Medicine; PCP Family Medicine; Visit Provider Emergency Medicine
DX: R42 Dizziness and giddiness (principal); I69.354 Hemiplegia and hemiparesis following cerebral infarction affecting left non-dominant side; E11.40 Type 2 diabetes mellitus with diabetic neuropathy, unspecified; I69.392 Facial weakness following cerebral infarction; N39.0 Urinary tract infection, site not specified; I10 Essential (primary) hypertension; E78.5 Hyperlipidemia, unspecified; F17.210 Nicotine dependence, cigarettes, uncomplicated; Z79.02 Long term (current) use of antithrombotics/antiplatelets; Z79.82 Long term (current) use of aspirin; Z79.84 Long term (current) use of oral hypoglycemic drugs; Z79.899 Other long term (current) drug therapy
CPT/HCPCS: 70450; 71045; 80053; 80307; 81001; 82077; 83690; 84484; 85025; 87086; 87088; 93005; 96360; 99285; J7030; A4216

== ENCOUNTER 2023-02-10 15:38 | Emergency (ER) | payer MEDICAID, SELFPAY ==
[2023-02-10 15:39] VITALS: BP 146/104; PULSE 100; RESP 14; TEMP 36.2; O2SAT 99; BMI 25.0
== END 2023-02-10 16:20 | disposition left against medical advice (07) ==
LOC: ED 16:42
PROVIDERS: PCP Family Medicine
DX: K43.9 Ventral hernia without obstruction or gangrene (principal); I69.354 Hemiplegia and hemiparesis following cerebral infarction affecting left non-dominant side; E11.40 Type 2 diabetes mellitus with diabetic neuropathy, unspecified; I10 Essential (primary) hypertension; E78.5 Hyperlipidemia, unspecified; F10.90 Alcohol use, unspecified, uncomplicated; F17.210 Nicotine dependence, cigarettes, uncomplicated; Z79.02 Long term (current) use of antithrombotics/antiplatelets; Z79.82 Long term (current) use of aspirin; Z79.84 Long term (current) use of oral hypoglycemic drugs; Z79.899 Other long term (current) drug therapy

== ENCOUNTER 2023-02-10 20:44 | Emergency (ER) | payer MEDICAID, SELFPAY ==
[2023-02-10 20:45] VITALS: BP 155/100; PULSE 98; RESP 14; TEMP 36.6; O2SAT 100
[2023-02-10 20:50] VITALS: BMI 25.5
--- NOTE | 2023-02-10 20:58 | CT_ITS ---
EXAM: CT Abdomen And Pelvis W/ Contrast Injection HISTORY: Pain, ventral hernia TECHNIQUE: Routine protocol CT abdomen pelvis. IV Contrast: IV 100mL Isovue-300 . Oral Contrast: without. Sagittal and coronal images were reconstructed. RADIATION DOSAGE (If Supplied By Facility): CTDIvol = ( 16.10 ) mGy, DLP = ( 829.34 ) mGycm Individualized dose optimization techniques were used for this CT. COMPARISON: CT pelvis 01/16/2022. LIMITATIONS: None. FINDINGS: LOWER CHEST: Mild hazy opacities in the lower lungs nonspecific. LIVER: Fatty infiltration. GALLBLADDER/BILE DUCTS: Gallbladder surgically absent. PANCREAS: Unremarkable. SPLEEN: Unremarkable. ADRENAL GLANDS: Unremarkable. KIDNEYS / URETERS: Small cyst in the left kidney. Otherwise the kidneys are unremarkable. No hydronephrosis. BOWEL / MESENTERY: Unremarkable. No bowel obstruction. APPENDIX: Identified and normal. No evidence of acute appendicitis. PERITONEUM: No free air. No free fluid. VESSELS: Abdominal aorta is normal caliber. RETROPERITONEUM: Unremarkable. REPRODUCTIVE ORGANS: Uterus is not identified. BLADDER: Unremarkable. ABDOMINAL WALL: Small supraumbilical hernia, and small umbilical hernia, containing only fat, no bowel, with no associated stranding or fluid collection. BONES: Degenerative changes in the lumbar spine. OTHER: None. CT/Abdomen/Pelvis W IV Cont ONLY IMPRESSION: Small supraumbilical and umbilical fat containing hernias without evidence of complication. No acute findings. Electronically Signed: Valencia Valencia MD at 22:22 EDT ,
--- NOTE | 2023-02-10 20:59 | EDS_ITS ---
HPI History of Present Illness Chief Complaint: Abd Pain Informant: patient Narrative Narrative: Patient complains of upper abdominal discomfort and nausea. Patient states that for the last 3 or so weeks she thinks her hernia has been getting bigger. She thinks this is because she was started on Seroquel and she has been gaining weight. She gets some nausea when she eats. She has vomited once or twice but not routinely. Never had fevers or chills. She was in here earlier and then chose to leave and then came back. She does have some upper abdominal discomfort. No back pain. She does report a history of pancreatitis but does not know why she has had it. She denies drinking alcohol. She has had prior hysterectomy and cholecystectomy. Nothing seems to make her symptoms better or worse and they vary quite a bit day-to-day. [facility] Medical History Alcohol use disorder Bipolar 2 disorder, major depressive episode CVA (cerebral vascular accident) Diabetic neuropathy DM2 (diabetes mellitus, type 2) Generalized anxiety disorder Hemiplegia and hemiparesis following cerebral infarction affecting left non- dominant side HLD (hyperlipidemia) HTN (hypertension) Nicotine use disorder PTSD (post-traumatic stress disorder) Tobacco dependence due to cigarettes Urinary tract infection with hematuria Home Medications clonazepam 2 mg tablet (Klonopin) 2 mg PO TID anxiety 06/15/14 [History Last Taken 07/22/20] clopidogrel 75 mg tablet (Plavix) 75 mg PO QHS heart 07/03/16 [History Last Taken 07/22/20] glimepiride 2 mg tablet 4 mg PO DAILY blood sugar 01/09/17 [History Last Taken 07/22/20] atorvastatin 80 mg tablet (Lipitor) 80 mg PO QHS cholesterol lowering 03/29/18 [History Last Taken 07/22/20] aspirin 81 mg chewable tablet 81 mg PO DAILY@0800 heart health 07/23/20 [History Last Taken 07/22/20] empagliflozin 25 mg tablet (Jardiance) 25 mg PO DAILY 05/11/22 [History Last Taken Unknown] quetiapine 100 mg tablet (Seroquel) 150 mg PO QHS 06/29/22 [History Last Taken Unknown] meclizine 25 mg tablet 25 mg PO 4X/DAY PRN PRN Dizziness #20 tabs 11/29/22 [Rx Last Taken Unknown] sulfamethoxazole 800 mg-trimethoprim 160 mg tablet (Bactrim DS) 1 tab PO Q12H #9 tabs 11/29/22 [Rx Last Taken Unknown] omeprazole 20 mg capsule,delayed release 20 mg PO DAILY #30 CAPSULES 02/10/23 [Rx Last Taken Unknown] ondansetron 4 mg disintegrating tablet 4 mg PO Q8H PRN PRN Nausea #10 tabs 02/10/23 [Rx Last Taken Unknown] Allergy/AdvReac Type Severity Reaction Status Date / Time azithromycin Allergy Diarrhea Verified 02/10/23 20:47 doxycycline Allergy Rash Verified 02/10/23 20:47 egg Allergy Unknown Verified 02/10/23 20:47 Penicillins Allergy Rash Verified 02/10/23 20:47 cyclobenzaprine AdvReac Rash Verified 02/10/23 20:47 [From Flexeril] gabapentin AdvReac Other Verified 02/10/23 20:47 Family History Grandmother Cancer Heart disease Myocardial infarction Aortic aneurysm rupture Hypertension Father Myocardial infarction Heart disease Hypertension Surgical History History of hysterectomy S/P cholecystectomy S/P tonsillectomy and adenoidectomy Social History household members: none Smoking Status: Current every day smoker tobacco type: cigarettes substance use type: does not use ROS ROS ED ROS Narrative A complete review of systems was performed and is negative except as documented in the history of present illness. Some specific details below. Constitutional: No recent fevers or chills. No malaise EYE: No visual complaints or pain. No change in eye color ENT: No difficulty swallowing. No swelling. No pain. No GERD. CV: No chest pain or palpitations. Respiratory: No dyspnea. No hemoptysis. No difficulty taking breaths. GI: Please see history of present illness. : No frequency dysuria or hematuria. No change in odor or color. Musculoskeletal: No recent trauma. No pains. She is not having pain referred to her back. Skin: No rash. Nondiaphoretic. Neuro: No weakness or numbness. Endocrine: No polyuria or polydipsia. EXAM Physical Exam Narrative Exam Narrative: CONSTITUTIONAL: Patient is nontoxic in appearance. The patient looks comfortable. HEENT: No notable trauma. Mucous membranes moist. No sinus tenderness. No clint cation of pain with swallowing. EYES: No conjunctival injection. No icterus. CARDIOVASCULAR: Regular rate. Regular rhythm. No notable murmur. No JVD. RESPIRATORY: No respiratory distress. Breathing is unlabored. No wheezes. No rhonchi. No rales. No pain with a deep breath. GASTROINTESTINAL: Not distended. Bowel sounds are normal. Patient has a ventral hernia above the umbilicus but not involving it. When she sits up it comes out. But it spontaneously resolves when she lays down flat. I can feel the defect but there is no clinical indication of incarceration. It is not locally tender there. In fact her abdomen really is not tender she just complains that it hurts. But pressing on it does not change this significantly. GENITOURINARY: No tenderness over the bladder. No CVA tenderness. MUSCULOSKELETAL: Atraumatic. No peripheral edema. No cord. No tenderness along the deep venous system. No asymmetry. NEUROLOGICAL: Patient is alert and appropriate. No focal deficit noted. SKIN: No noted rashes. No diaphoresis. PSYCHIATRIC: Patient is calm. Mood is appropriate. Const Vital Signs: 02/10/23 20:45 Temperature 97.8 F Temperature Source Temporal Pulse Rate 98 Respiratory Rate 14 Blood Pressure 155/100 H Blood Pressure Mean 118 Pulse Ox 100 Oxygen Delivery Method Room Air MDM MDM MDM Narrative Medical decision making narrative: Patient CBC is normal. Patient's electrolytes are normal except for mild elevation of glucose at 165. But this is reasonably well controlled. Patient's liver function test are normal other than mild elevation of the alkaline phosphatase. Patient's lipase is normal. My independent interpretation of the patient CT scan of the abdomen with IV contrast shows no sign of pancreatitis or free air. No sign of obstruction. Final reading shows no acute process. They also note a small supraumbilical and umbilical fat containing hernias without evidence of complication. I talked with the patient about her results. I think she can go home. We will get her on a proton pump inhibitor. I will write her meds for nausea. We discussed reasons to return. Even though she has a hernia there is no clint cation of incarceration or strangulation. Although patient denies drinking she does have a record on her chart of alcoholic pancreatitis. She may have stopped drinking. Lab Data Labs: Laboratory Results - last 24 hr 02/10/23 21:25 WBC 9.0 RBC 4.68 Hgb 14.7 Hct 42.6 MCV 91.0 MCH 31.4 MCHC 34.5 RDW Std Deviation 40.5 RDW Coeff of Arlene 12.1 Plt Count 167 MPV 11.4 Immature Gran % (Auto) 0.200 Neut % (Auto) 59.4 Lymph % (Auto) 31.4 [place] % (Auto) 5.2 Eos % (Auto) 2.9 Baso % (Auto) 0.9 Absolute Neuts (auto) 5.3 Absolute Lymphs (auto) 2.83 Nucleated RBC % 0 Sodium 139 Potassium 3.8 Chloride 104 Carbon Dioxide 29.0 Anion Gap 6 BUN 13 Creatinine 0.96 Estim Creat Clear Calc 64.90 Est GFR (MDRD) Af Amer 79 Est GFR (MDRD) Non-Af 65 BUN/Creatinine Ratio 13.5 Glucose 165 H Calcium 9.3 Total Bilirubin 0.60 AST 23 ALT 51 Alkaline Phosphatase 118 H Total Protein 7.8 Albumin 3.7 Globulin 4.1 Albumin/Globulin Ratio 0.9 Lipase 43 Radiography Diagnostic Testing: Clinical Impression(s) from Imaging Studies Abdomen/Pelvis CT 02/10/23 20:58 IMPRESSION: Small supraumbilical and umbilical fat containing hernias without evidence of complication. No acute findings. Electronically Signed: Valencia Valencia MD at 22:22 EDT , Discharge Plan Triage Chief Complaint: Abd Pain ED Provider: Mathew Barboza Dx/Rx/DC Orders Clinical Impression: Ventral hernia, Abdominal pain, Nausea Instructions: ED Abdominal Pain Unkn Cause Fem Prescriptions: New omeprazole [omeprazole] 20 mg capsule,delayed release(DR/EC) 20 mg PO DAILY Qty: 30 0RF ondansetron [ondansetron] 4 mg tablet,disintegrating 4 mg PO Q8H PRN PRN (Reason: Nausea) Qty: 10 0RF No Action clonazepam [Klonopin] 2 MG tablet 2 mg PO TID clopidogrel [Plavix] 75 MG tablet 75 mg PO QHS glimepiride 2 MG tablet 4 mg PO DAILY Patient Comments: atorvastatin [Lipitor] 80 MG tablet 80 mg PO QHS aspirin 81 MG tablet,chewable 81 mg PO DAILY@0800 Jardiance 25 mg Tablet 25 mg PO DAILY quetiapine [Seroquel] 100 mg Tablet 150 mg PO QHS meclizine 25 mg tablet 25 mg PO 4X/DAY PRN PRN (Reason: Dizziness) Qty: 20 0RF sulfamethoxazole-trimethoprim [Bactrim DS] 800-160 mg tablet 1 tab PO Q12H Qty: 9 0RF Primary Care Provider: Ran Dill Referrals: Ran Dill MD [Primary Care Provider] - 3-5 Days if not improving Disposition Disposition: Home, Self Care
[2023-02-10] MEDS: 0.9% Normal Saline 1,000 ML 1000 ML IV (21:22)
[2023-02-10] MEDS: Ondansetron 4 MG/2 ML Vial IV (21:22)
[2023-02-10] MEDS: Morphine 4 MG/ML Syringe IV (21:22)
[2023-02-10 21:32] LABS: Absolute Lymphocyte Count 2.83 X10^3/uL (0.83-4.51); Absolute Neutrophil Count 5.3 X10^3/uL (2.0-7.7); Basophil# 0.08 X10^3/uL; Basophil% 0.9 % (0-1); Eosinophil# 0.26 X10^3/uL; Eosinophils% 2.9 % (0-5); Hematocrit 42.6 % (37-47); Hemoglobin 14.7 g/dL (12.0-15.0); Lymphocyte # 2.83 X10^3/ul (0.83-4.51); Lymphocyte % 31.4 % (19-41); Mean Corp Hgb Conc 34.5 g/dL (32-36); Mean Corpuscular Hgb 31.4 pg (27.0-32.0); Mean Platelet Vol. 11.4 fl (6.2-12.0); Monocyte# 0.47 X10^3/uL; Monocyte% 5.2 % (0-10); NRBC Flagged by Analyzer 0 % (0-5); Neutrophil # 5.34 X10^3/uL (2.7-7.7); Neutrophil % 59.4 % (47-70); Platelet Count 167 K/mm3 (150-450); RBC Distribution Width CV 12.1 % (11.6-14.6); RBC Distribution Width SD 40.5 fl (35.1-43.9); Red Blood Count 4.68 M/mm3 (4.2-5.4)
[2023-02-10 21:49] LABS: ALB/GLOB Ratio 0.9 RATIO (0.9-2.4); AST(SGOT) 23 U/L (15-37); Alanine Aminotransfer ALT/SGPT 51 U/L (13-56); Albumin, Serum 3.7 g/dL (3.2-5.0); Alkaline Phosphatase 118 U/L (45-117); Anion Gap 6 (5-15); BUN 13 mg/dL (7-18); BUN/Creat Ratio 13.5 RATIO (10-20); Calcium,Total 9.3 mg/dL (8.5-10.1); Chloride 104 mmol/L (98-107); Creatinine, Serum 0.96 mg/dL (0.55-1.02); EST Glomerular Filtration Rate 65 mL/min (>60); Est Glom Filt Rate - Afr Amer 79 mL/min (>60); Globulin 4.1 g/dL (2.2-4.2); Glucose 165 mg/dL (74-106); Potassium 3.8 mmol/L (3.5-5.1); Protein, Total 7.8 g/dL (6.4-8.2); Sodium Level 139 mmol/L (136-145)
[2023-02-10 22:58] LABS: Lipase 43 U/L (13-75)
[2023-02-10 23:07] VITALS: BP 140/82; PULSE 76; RESP 18
== END 2023-02-10 23:21 | disposition home or self-care (01) ==
PROVIDERS: Emergency Provider Emergency Medicine; PCP Family Medicine; Visit Provider Emergency Medicine
DX: K43.9 Ventral hernia without obstruction or gangrene (principal); I69.354 Hemiplegia and hemiparesis following cerebral infarction affecting left non-dominant side; E11.65 Type 2 diabetes mellitus with hyperglycemia; E11.40 Type 2 diabetes mellitus with diabetic neuropathy, unspecified; E78.5 Hyperlipidemia, unspecified; I10 Essential (primary) hypertension; F17.210 Nicotine dependence, cigarettes, uncomplicated; Z79.02 Long term (current) use of antithrombotics/antiplatelets; Z79.82 Long term (current) use of aspirin; Z79.84 Long term (current) use of oral hypoglycemic drugs; Z79.899 Other long term (current) drug therapy
CPT/HCPCS: 74177; 80053; 83690; 85025; 96361; 96374; 96375; 99282; J7030; Q9967; A4216; J2405

== ENCOUNTER 2023-04-03 08:00 | Outpatient (RCR) | payer MEDICAID, SELFPAY ==
--- NOTE | 2023-04-03 10:10 | BH.SGPN.GN ---
Behaviors/Verbalizations/Mental Status: []Client alert and oriented, casually dressed and groomed. Eye contact fair. Motor activity appropriate. Speech within normal limits. Affect congruent, mood euthymic. Thoughts linear, logical, no signs of hallucinations or delusions. Client Response/Progress/Benefit: []Client was an engaged participant in group discussions and activity. Attentive during psychoeducation. Client engaged in activity in which group was able to make connections about how can be easier to find positives in others compared to self. Attentive during interactive discussion on the definition of perspective, how perspective is formed, and why perspective is important in treatment. Client didn't share perspective with group, but appeared to engage in reflection activity. First day in IOP. Will continue in IOP to improve daily functioning, increase healthy coping, and prevent decompensation.
--- NOTE | 2023-04-03 10:54 | BH.COMM ---
Communication Note Communication with Client Communication Note: Met with pt to complete initial paperwork and complete the CSSR-S. No significant changes since initial assessment. Pt was a low risk on the CSSR-S. No SI, plan, or intent. Future oriented and family is a huge protective factor. One suicide attempt via overdose 11 years ago. Case discussed with Dr. 

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
--- NOTE | 2023-04-05 09:20 | BH.NA ---
Physical Data Vital Signs Pulse Rate: 77 Blood Pressure: 144/94 Height/Weight Height: 1.68 m Weight:: 63.503 kg Weight in Pounds: 140.0 lbs Current Medication Compliance Medication Compliance Do you take your medication as prescribed?: No (not currently taking diabetic medications) Nutritional History Appetite Nutritional Instructions: Describe your appetite:: Fair Additional nutritional information:: Client reports a decrease in her appetite but denies any recent change in her weight. Functional Assessment Sleep Pattern Describe any problems with sleeping: Client states she sleeps about 6-7 hours per night. Sensory/Communication Assess Communication Problems Do you have difficulty understanding what people are saying?: No Medical Problems/History Cardiac Conditions Cardiovascular: Hypertension Neurological Conditions Neurological: Other (See comments) (neuropathy to lower legs/feet, migraines, stroke x 2 (age 40 and 50 due to MoyaMoya disease)) Metabolic Conditions Metabolic: Diabetes Musculoskeletal Conditions Musculoskeletal: Other (See comments) (left side damage from stroke- slightly slurred speech) Family History Family History Grandmother Cancer Heart disease Myocardial infarction Aortic aneurysm rupture Hypertension Father Myocardial infarction Heart disease Hypertension Surgical History Surgical History Have you had any surgeries? If so, list type and date:: Yes (brain bypass d/t strokes, hysterectomy, laith, T&A) Substance Abuse Substance Abuse Please describe substance abuse in the last 30 days:: Client reports a history of alcohol use but denies any recent use. Client has been a cigarette smoker since she was 14 years old and currently smokes 1-1.5 packs per day. Client denies substance use. Client states she drinks 1-2 cups of coffee per day and 1 32+ oz fountain pop from [employer] with caffeine per day. Mental Status Summary Mental Status Significant Findings/Observations on Appearance and Mood:: Client is alert and oriented x 4. Client is casually groomed with good hygiene. Client is cooperative with assessment. Client makes good eye contact. Client's voice is slightly slurred due to her history of strokes, but normal volume and rate. Client is somewhat slow to respond at times. Client has appropriate affect. Client makes logical associations and has normal processing. Client denies delusions/hallucinations. Client denies SI. Suicide Assessment Suicidal Ideation Are you currently or have you been suicidal in the past?: Yes Suicidal Intentional Rating Scale (SIRS): Suicidal thoughts (past) Physician Notification Past Psychiatric History MH Treatment Hx Past Psychiatric Medications:: Paxil, others she does not remember names for Age of first mental health symptoms: Client states she first started taking medication for her mental health in her late 20's. Describe (age, circumstance, etc) any past hospitalizations: [facility] in 2012 for a suicide attempt Current providers for mental health treatment (counselor, psychiatrist, rifle case repairer, etc.): Dr. Dhillon at [facility] for [facility], establishing care tomorrow with [facility] for counseling Fall Risk Assessment Age Age: Less than 60 Mental Status Mental Status: Willing & able to ask for assistance when needed Physical Status Physical Status: No problems Impairments Impairments: None Elimination Elimination: Continent AND independent Gait or Balance Gait or Balance: Walks independently Hx of Falls History of falls in the past 6 months: No known history Medications/Substances Psychotropics:: Antipsychotics and Anxiolytics (e.g. benzodiazepines) Medications/substances used within the past 24 hours or ordered to administer: 1-2 of the medications/substances listed above Total Score Total Points:: 1 RN Summary of Impressions Impressions Recommendations Impressions: Psychiatric Issues: 1. Bipolar 2 disorder (currently depressed) 2. Generalized anxiety disorder 3. Panic disorder 4. PTSD 5. Alcohol use disorder in full remission for 2 years 6. Moyamoya disorder with history of cerebrovascular accidents Level of Care How do the client's current symptoms and functional deficits support need for this level of care?: Client has been in IOP two times in the past, and referred herself back to [facility]. Client was last in IOP in April 2022. Client states she has returned due to increased depression, outpatient counseling not being enough for me, and stressors with relationship with her alcoholic boyfriend. Client states she is now living with her son and states that presents its own set of problems. Client states her mental health as declined in the last year partially due to only having counseling monthly, and the stressor from her boyfriend drinking alcohol again since he was sober for a time period. Client denies SI. Client does report daily panic attacks for the last 1-2 months. IOP will promote gains and prevent further decompensation while providing social support and skills training.
--- NOTE | 2023-04-05 10:10 | BH.SGPN.GN ---
Behaviors/Mental Status: [] Eye contact is fair. Motor activity is appropriate. Appearance is casual. Speech is Appropriate. Mood is anxious. Affect is congruent. Thoughts are linear and logical. No evidence of psychosis. Client Response/Progress/Benefit: [] Pt engaged participant AEB listening attentively to others, taking notes, and providing input at times. Participated in and was engaged during experiential activity. Engaged during interactive discussion on what failure means to the group in which peers identified that failure is ... not meeting expectations, not having a desired outcome, and not succeeding in a task. Group was able to identify impact of fear of failure. Client stated fear of failure has kept her stuck in relationships. Attentive during interactive discussion on the role that FOF plays in mental wellness, depression, anxiety, and growth. Benefited from increased awareness of how the role that FOF plays in mental health and decision-making. Will continue in IOP to increase healthy coping, improve confidence, and prevent decompensation.
[2023-04-05 10:35] VITALS: BP 144/94; PULSE 77
--- NOTE | 2023-04-05 11:10 | BH.SGPN.GN ---
Behaviors/Verbalizations/Mental Status: []Pt alert and oriented, casually dressed and groomed. Eye contact good. Motor activity appropriate. Speech within normal limits. Affect congruent, mood depressed, agitated. Thoughts linear, logical, no signs of hallucinations or delusions. Client Response/Progress/Benefit: [] Pt responded well to session, engaged in the experiential activity and attentive throughout group processing. Pt reported fear of failure has kept Pt from ending unhealthy relationships. Pt completed fear of failure worksheet and was able to identify thoughts and behaviors that reinforce personal fear of failure including: all or nothing thinking, self-doubt, and isolation. Pt participated in group discussion regarding strategies to overcome fear of failure. Identified wanting to work on starting to improve positive self-talk. Appeared to benefit from increased knowledge of strategies to combat fear of failure and gaining self-awareness. Pt will continue IOP tx to improve mood stability, improve healthy boundary setting, and prevent decompensation. Narrative Note: []
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
--- NOTE | 2023-04-05 12:56 | BH.DR.ITP ---
Initial Treatment Plan Patient Information Visit Information: ADMISSION DATE: EXPECTED LOS: 4-6 weeks Problems/Symptoms Problem #1:: Bipolar depression Symptom:: Sadness, worthlessness, anhedonia, low energy, decreased concentration, guilt, biological disruption of appetite Problem #2:: Worry, rumination, panic attacks, flashbacks, avoidance
--- NOTE | 2023-04-10 09:00 | BH.SGPN.GN ---
Behaviors/Verbalizations/Mental Status: [] Pt eye contact good, neat and casually dressed, motor activity appropriate, speech normal rate and tone, mood agitated and depressed, congruent affect, thoughts linear and intact, no evidence of delusions or hallucinations. Per pt's symptom tracker, no report of SI, plan, or intent as of this date Client Response/Progress/Benefit: [] Client respond well to session as evidenced by her listening attentively to others and sharing thoughts and feelings. Client reported mental health positive as spending time with her granddaughter over the weekend and challenging anxiety about being alone with her. Client reported additional positive as taking time to complete laundry as well. Client stated stressor as coping with guilt about missing her son's phone call stating her needed a ride to the hospital. Did well to challenge these thoughts. Seemed to benefit from support from peers. Client to continue IOP to continue use of healthy coping skills, work on continued communication with supports, and prevent decompensation. Narrative Note: []
--- NOTE | 2023-04-10 11:10 | BH.SGPN.GN ---
Behaviors/Verbalizations/Mental Status: []Pt alert and oriented, casually dressed. Eye contact good. Motor activity appropriate. Speech within normal limits. Affect flat, mood depressed. Thoughts linear, logical, no signs of hallucinations or delusions. Client Response/Progress/Benefit: []Pt responded well to session, engaged and contributing. Pt attentive during psychoeducation on the different boundary styles. Pt reports having a porous boundary setting style which leads to pt ignoring her feelings out of fear of rejection. Able to connect impact current boundary styles impact on functioning. Pt was given a handout on strategies for healthy boundary setting. Appeared to benefit from increasing insight to boundary setting and the impacts on mental health. Pt wants to work on asking herself ?what does saying yes say no to?? Will continue IOP tx to prevent decompensation, increase self-esteem, and improve healthy boundary setting. Narrative Note: []
--- NOTE | 2023-04-10 12:23 | BH.MDN_ITS ---
Multi-Disciplinary Note Note 60-min Individual: Time Started:: 10:22 Date: 04/10/23 Purpose of session/treatment goals addressed:: Purpose of this session was to address tx plan goal #1. Reviewed strategies for discussing pt?s boundaries with her supports. Eye Contact:: Good Motor Activity:: Appropriate Appearance:: Disheveled and Casual Speech:: Appropriate Mood:: Irritable and Depressed Affect:: Congruent Thoughts:: Linear, Logical and No evidence of hallucinations/delusions noted Staff Interventions:: thought challenging, motivational interviewing, psychoeducation on: (healthy communication skills for communicating boundaries), CBT techniques and strengths perspective Client Response:: Pt responded well to session, actively engaged throughout. Discussed meeting with her new outpatient counselor, Roderick at [facility], for the first time on of last week. Pt shared the session went well and she is looking forward to working with him. Next scheduled session is April 20. Went on to discuss a recent stressor in which pt?s son was sent to the hospital on Monday morning and pt missed the call due to not having her phone with her in her boyfriend?s apartment. Clarified that he son is fine and was discharged from the hospital, but she is struggling with guilt about missing his call. Went on to explain that she doesn?t like to take her phone with her to her boyfriend?s apartment as he often tries to look through it. Pt has attempted to establish a boundary with him; however, this often results in conflict and increased frustration for pt. Therapist discussed pt reporting in prior session that they had as pt had reported this relationship is toxic and she wanted to work on maintaining the separation. Pt shared she has difficulties in following through with remaining as they have and gotten back together on several occasions in the past 6 years. Noted that the quick factors in pt returning to the relationship include a desire for sexual intimacy, as well as housing. Pt is currently living with her son and his girlfriend; however, is unable to stay with them nights her granddaughter has visitation due to limited space. Pt therefore often goes to her boyfriend?s as her ?s home is infested with bedbugs and therefore not an option. Pt shared she is currently struggling with frustration with living with her son as well, due to lack of cleanliness of the home. Shared she often is expected to clean and care for their pets. Pt is on the public housing list and is unsure of where she is on the waitlist. Pt and therapist looked on the housing authority?s website and pt is currently #[phone] on the list. Discussed ways to improve pt current living situation as she waits. Pt identified wanting to get more help with household responsibilities at her son?s house but fears he will get upset if she brings this up. Pt and therapist challenged her anxious thoughts and discussed healthy communication strategies for pt to present her concerns/frustrations while reducing the likelihood of her son becoming defensive. Pt identified plans to speak with him tomorrow as it is his day off and she will have more of an opportunity to do so. Risks/Concerns:: None noted. Pt denies SI, plan, or intent as of this date 04/10/23 Progress Toward Goals/Plan:: Progress limited. Pt continues to struggle with healthy boundaries and communicating her needs with supports. Pt living situation remains a major contributing factor to her ongoing mental health struggles and pt currently is on the waitlist for public housing. Willing to discuss strategies to improve her living environment. Pt self-reports her relationship with her boyfriend is toxic however struggles significantly with ending this, which also maintains depressive and anxious sx. Pt has some insight but limited motivation to make the changes she identifies will improve her mental health. Continues to endorse anxiety, depression, and irritability. Pt is able to identify healthy calming skills but often forgets these in the moment. Will continue IOP tx to further improve consistent skill application and boundary setting. Time Stopped:: 11:19
== END 2023-04-13 23:59 ==
LOC: BHIOP 08:00
PROVIDERS: PCP Family Medicine; Referring Provider Psychiatry & Neurology Psychiatry; Visit Provider Psychiatry & Neurology Psychiatry
DX: F31.81 Bipolar II disorder (principal); F41.1 Generalized anxiety disorder; F43.10 Post-traumatic stress disorder, unspecified; F41.0 Panic disorder [episodic paroxysmal anxiety]; F10.91 Alcohol use, unspecified, in remission; I67.5 Moyamoya disease; Z86.73 Personal history of transient ischemic attack (TIA), and cerebral infarction without residual deficits
CPT/HCPCS: S9480; 90832; 90837; 90853

== ENCOUNTER 2023-04-12 17:13 | Emergency (ER) | payer MEDICAID, SELFPAY ==
[2023-04-12 17:14] VITALS: BP 152/99; PULSE 82; RESP 14; TEMP 36.3; O2SAT 98; BMI 24.3
--- NOTE | 2023-04-12 17:36 | EX.ED.DYSGE1 ---
HPI History of Present Illness Chief Complaint: Hyperglycemia Detail of Chief Complaint: Elevated blood sugar Informant: patient Narrative Narrative: Patient presents to the emergency department with complaint of elevated blood sugar. Patient was at urgent care where they checked her blood sugar because she was complaining of urinary frequency for the last week and it was noted that her blood sugar was in the 460s. Patient is a known diabetic and takes Jardiance as well as glimepiride. Patient states that sometimes she forgets to take it. She took her Jardiance about half an hour ago. Patient denies nausea or vomiting. She denies fever or chills or sweats. [facility] Medical History (Updated 04/12/23 @ 20:[address] Kate Nieves, ) Alcohol use disorder Bipolar 2 disorder, major depressive episode CVA (cerebral vascular accident) Diabetic neuropathy DM2 (diabetes mellitus, type 2) Generalized anxiety disorder Hemiplegia and hemiparesis following cerebral infarction affecting left non-dominant side HLD (hyperlipidemia) HTN (hypertension) Nicotine use disorder Panic disorder PTSD (post-traumatic stress disorder) Tobacco dependence due to cigarettes Urinary tract infection with hematuria Home Medications clonazepam 2 mg tablet (Klonopin) 2 mg PO TID anxiety 06/15/14 [History Last Taken 07/22/20] clopidogrel 75 mg tablet (Plavix) 75 mg PO QHS heart 07/03/16 [History Last Taken 07/22/20] glimepiride 2 mg tablet 4 mg PO DAILY blood sugar 01/09/17 [History Last Taken 07/22/20] atorvastatin 80 mg tablet (Lipitor) 80 mg PO QHS cholesterol lowering 03/29/18 [History Last Taken 07/22/20] aspirin 81 mg chewable tablet 81 mg PO DAILY@0800 heart [facility] 07/23/20 [History Last Taken 07/22/20] empagliflozin 25 mg tablet (Jardiance) 40 mg PO DAILY 05/11/22 [History Last Taken Unknown] omeprazole 20 mg capsule,delayed release 20 mg PO Q8H PRN GERD 04/12/23 [History Last Taken Unknown] quetiapine 100 mg tablet (Seroquel) 150 mg PO QHS 04/12/23 [History Last Taken Unknown] Allergy/AdvReac Type Severity Reaction Status Date / Time azithromycin Allergy Diarrhea Verified 04/12/23 17:15 doxycycline Allergy Rash Verified 04/12/23 17:15 egg Allergy Unknown Verified 04/12/23 17:15 Penicillins Allergy Rash Verified 04/12/23 17:15 cyclobenzaprine AdvReac Rash Verified 04/12/23 17:15 [From Flexeril] gabapentin AdvReac Other Verified 04/12/23 17:15 Family History Grandmother Cancer Heart disease Myocardial infarction Aortic aneurysm rupture Hypertension Father Myocardial infarction Heart disease Hypertension Surgical History History of hysterectomy S/P cholecystectomy S/P tonsillectomy and adenoidectomy Social History household members: none Smoking Status: Current every day smoker tobacco type: cigarettes substance use type: does not use ROS ROS ED Review of Systems ROS Unobtainable: other Constitutional Constitutional ED: Reports lethargy; Denies chills, fever(s), sweats or weight loss Eyes Eyes: Denies blurry vision, change in vision or diplopia ENT ENT ED: Denies rhinorrhea or sore throat Cardiovascular Cardiovascular: Denies orthopnea Respiratory/Chest Respiratory/Chest: Denies cough, dyspnea, dyspnea on exertion, orthopnea or sputum Gastrointestinal Gastrointestinal: Denies abdominal pain, diarrhea, nausea or vomiting Genitourinary Genitourinary ED: Reports urinary frequency; Denies dysuria or hematuria Musculoskeletal Musculoskeletal: Denies arthralgias, back pain, myalgias or neck pain Integumentary Denies abscess, Abrasions or rash Neurologic Neurologic: Denies headache(s) or weakness Psychiatric Psychiatric: Denies anxiety, depression or suicidal thoughts Endocrine Endocrinology: Denies polydipsia, polyphagia or polyuria Hematologic/Lymphatic Hematologic/Lymphatic: Denies easy bleeding, easy bruising or lymphadenopathy Allergic/Immunologic Allergic/Immunologic ED: Denies mouth swelling, tongue swelling or urticaria EXAM Physical Exam Const Vital Signs: 04/12/23 17:14 04/12/23 17:35 04/12/23 20:18 Temperature 97.3 F L Temperature Source Temporal Pulse Rate 82 99 Respiratory Rate 14 16 Respiratory Effort Normal Respiratory Pattern Normal Blood Pressure 152/99 H 118/74 Blood Pressure Mean 116 88 Pulse Ox 98 99 Oxygen Delivery Method Room Air Room Air Positive well nourished and well developed General Appearance ED: well developed and NAD HEENT Reports TM's clear and moist mucous membranes normocephalic and atraumatic; Negative for trauma or tenderness Tympanic Membrane ED: Yes TM's clear Eyes PERRL and EOMs intact bilaterally General Eye ED: Negative for pale conjunctiva or scleral icterus Neck no lymphadenopathy, supple and no JVD General: Negative for tenderness Chest Wall inspection of chest normal and palpation of chest normal Chest: Negative for tenderness Resp normal respiratory effort and clear to auscultation bilaterally Effort and Inspection: Negative for respiratory distress or pain with movement Auscultation: Negative for rhonchi, wheezes or diminished lung sounds Cardio regular rate, regular rhythm, S1 normal heart sound, S2 normal heart sound and no murmurs Peripheral Pulses: pulses 2+ throughout GI normal to inspection, nondistended, normoactive bowel sounds, soft to palpation, non-tender, non-distended and no masses Back/Spine no CVA tenderness and no thoracic nor lumbar tenderness Extremity normal to inspection General Extremety ED: Negative for edema General Extremity: Negative for edema Neuro oriented x3, CN's II-XII intact bilaterally, no sensory deficits noted and gait normal Sensorium / Orientation: awake, alert, oriented to person, oriented to place and oriented to time Motor Exam: strength 5/5 throughout and strength abnormal Psych mental status grossly normal Skin no rashes or lesions noted and no wounds MDM MDM MDM Narrative Medical decision making narrative: Patient presents with hyperglycemia and urinary frequency. Patient does not feel like she has been as compliant as she should be with her diabetic medications. IV line established. Patient was given a liter normal same fluid bolus. CBC with differential obtained showed a white count 9.7 with a hemoglobin of 14 and platelet count of 138. Chemistries unremarkable. Glucose 381. Urinalysis was normal other than she was spilling glucose into thousand. No signs of infection. Discussed case with Dr. Osorio who is covering for Dr. Dill who recommended that patient follow-up with their office. This point I asked patient to be mindful of taking her medications daily. Frequency can be due to spilling glucose in the urine and if her blood sugar is managed this will likely resolve her urinary frequency. Lab Data Labs: Laboratory Results - last 24 hr 04/12/23 04/12/23 04/12/23 17:27 17:47 18:20 WBC 9.7 RBC 4.75 Hgb 14.9 Hct 45.0 MCV 94.7 MCH 31.4 MCHC 33.1 RDW Std Deviation 40.9 RDW Coeff of Arlene 11.9 Plt Count 138 L MPV 11.9 Immature Gran % (Auto) 0.200 Neut % (Auto) 65.4 Lymph % (Auto) 26.7 Sanborn % (Auto) 4.4 Eos % (Auto) 2.6 Baso % (Auto) 0.7 Absolute Neuts (auto) 6.4 Absolute Lymphs (auto) 2.60 Nucleated RBC % 0 Sodium 132 L Potassium 4.0 Chloride 102 Carbon Dioxide 22.0 Anion Gap 8 BUN 10 Creatinine 1.04 H Estim Creat Clear Calc 59.91 Est GFR (MDRD) Af Amer 72 Est GFR (MDRD) Non-Af 59 L BUN/Creatinine Ratio 9.6 L Glucose 381 H Calcium 8.8 Total Bilirubin 0.80 AST 22 ALT 44 Alkaline Phosphatase 124 H Total Protein 7.6 Albumin 3.5 Globulin 4.1 Albumin/Globulin Ratio 0.9 Urine Color Yellow Urine Clarity Clear Urine pH 5.0 Ur Specific Snowflake 1.010 Urine Protein Negative Urine Glucose (UA) 1000 H Urine Ketones Negative Urine Occult Blood 25 H Urine Nitrite Negative Urine Bilirubin Negative Urine Urobilinogen Normal Ur Leukocyte Esterase 100 H Urine RBC 0-5 SEEN Urine WBC 0-5 SEEN Ur Squamous Epith Cells 0-5 SEEN Urine Bacteria 1+ Urine Mucus 0 SEEN POC Glucose 409 H 04/12/23 20:16 WBC RBC Hgb Hct MCV MCH MCHC RDW Std Deviation RDW Coeff of Arlene Plt Count MPV Immature Gran % (Auto) Neut % (Auto) Lymph % (Auto) Sanborn % (Auto) Eos % (Auto) Baso % (Auto) Absolute Neuts (auto) Absolute Lymphs (auto) Nucleated RBC % Sodium Potassium Chloride Carbon Dioxide Anion Gap BUN Creatinine Estim Creat Clear Calc Est GFR (MDRD) Af Amer Est GFR (MDRD) Non-Af BUN/Creatinine Ratio Glucose Calcium Total Bilirubin AST ALT Alkaline Phosphatase Total Protein Albumin Globulin Albumin/Globulin Ratio Urine Color Urine Clarity Urine pH Ur Specific Snowflake Urine Protein Urine Glucose (UA) Urine Ketones Urine Occult Blood Urine Nitrite Urine Bilirubin Urine Urobilinogen Ur Leukocyte Esterase Urine RBC Urine WBC Ur Squamous Epith Cells Urine Bacteria Urine Mucus POC Glucose 176 H Discharge Plan Triage Chief Complaint: Hyperglycemia ED Provider: Kate Nieves Dx/Rx/DC Orders Clinical Impression: Acute hyperglycemia Instructions: ED Diabetic Hyperglycemia Prescriptions: No Action clonazepam [Klonopin] 2 MG tablet 2 mg PO TID clopidogrel [Plavix] 75 MG tablet 75 mg PO QHS glimepiride 2 MG tablet 4 mg PO DAILY Patient Comments: atorvastatin [Lipitor] 80 MG tablet 80 mg PO QHS aspirin 81 MG tablet,chewable 81 mg PO DAILY@0800 Jardiance 25 mg Tablet 40 mg PO DAILY quetiapine [Seroquel] 100 mg tablet 150 mg PO QHS omeprazole 20 mg capsule,delayed release(DR/EC) 20 mg PO Q8H PRN (Reason: GERD) Primary Care Provider: Ran Dill Referrals: Ran Dill MD [Primary Care Provider] - 3-5 Days Disposition Disposition: Home, Self Care Discharge Date/Time: 04/12/23 20:55
[2023-04-12 17:46] LABS: Bedside Glucose 409 mg/dL (74-106)
[2023-04-12] MEDS: 0.9% Normal Saline 1,000 ML 1000 ML IV (17:53)
[2023-04-12 18:01] LABS: Absolute Neutrophil Count 6.4 X10^3/uL (2.0-7.7); Basophil# 0.07 X10^3/uL; Basophil% 0.7 % (0-1); Eosinophil# 0.25 X10^3/uL; Eosinophils% 2.6 % (0-5); Hemoglobin 14.9 g/dL (12.0-15.0); Lymphocyte % 26.7 % (19-41); Mean Corp Hgb Conc 33.1 g/dL (32-36); Mean Corpuscular Hgb 31.4 pg (27.0-32.0); Mean Corpuscular Volume 94.7 fL (81-99); Mean Platelet Vol. 11.9 fl (6.2-12.0); Monocyte# 0.43 X10^3/uL; Monocyte% 4.4 % (0-10); NRBC Flagged by Analyzer 0 % (0-5); Neutrophil # 6.35 X10^3/uL (2.7-7.7); Neutrophil % 65.4 % (47-70); Platelet Count 138 K/mm3 (150-450); RBC Distribution Width CV 11.9 % (11.6-14.6); RBC Distribution Width SD 40.9 fl (35.1-43.9); Red Blood Count 4.75 M/mm3 (4.2-5.4); White Blood Count 9.7 K/mm3 (4.4-11.0)
[2023-04-12 18:24] LABS: Color, Urine Yellow (Yellow); Glucose, Dipstick 1000 mg/dl (Normal); Ketone-Dipstick Negative (Negative); Leukocyte Esterase-Dipstick 100 /ul (Negative); Mucous, Urine 0 SEEN /hpf (<or=2+); Nitrite-Dipstick Negative (Negative); Occult Blood-Urine 25 /ul (Negative); Protein-Dipstick Negative (Negative); Urine Bilirubin Dipstick Negative (Negative); Urine Clarity Clear (Clear); Urine Urobilinogen Normal (Normal)
[2023-04-12 18:31] LABS: ALB/GLOB Ratio 0.9 RATIO (0.9-2.4); AST(SGOT) 22 U/L (15-37); Alanine Aminotransfer ALT/SGPT 44 U/L (13-56); Albumin, Serum 3.5 g/dL (3.2-5.0); Alkaline Phosphatase 124 U/L (45-117); Anion Gap 8 (5-15); BUN 10 mg/dL (7-18); BUN/Creat Ratio 9.6 RATIO (10-20); Calcium,Total 8.8 mg/dL (8.5-10.1); Chloride 102 mmol/L (98-107); Creatinine, Serum 1.04 mg/dL (0.55-1.02); EST Glomerular Filtration Rate 59 mL/min (>60); Est Glom Filt Rate - Afr Amer 72 mL/min (>60); Estimated Creatinine Clearance 59.91 ml/min; Globulin 4.1 g/dL (2.2-4.2); Glucose 381 mg/dL (74-106); Protein, Total 7.6 g/dL (6.4-8.2); Sodium Level 132 mmol/L (136-145)
[2023-04-12 18:36] LABS: Bacteria 1+ /hpf (None Seen); White Blood Cells 0-5 SEEN /hpf (0-5)
[2023-04-12 18:37] LABS: Red Blood Cells-Urine 0-5 SEEN /hpf (0-5); Squamous Epithelial Cells - UA 0-5 SEEN /hpf (5-10)
[2023-04-12 20:18] VITALS: BP 118/74; PULSE 99; RESP 16; O2SAT 99
[2023-04-12 20:42] LABS: Bedside Glucose 176 mg/dL (74-106)
== END 2023-04-12 20:55 | disposition home or self-care (01) ==
PROVIDERS: Emergency Provider Emergency Medicine; PCP Family Medicine; Visit Provider Emergency Medicine
DX: E11.65 Type 2 diabetes mellitus with hyperglycemia (principal); E11.40 Type 2 diabetes mellitus with diabetic neuropathy, unspecified; E78.5 Hyperlipidemia, unspecified; F17.210 Nicotine dependence, cigarettes, uncomplicated; Z79.899 Other long term (current) drug therapy; Z79.84 Long term (current) use of oral hypoglycemic drugs; Z86.73 Personal history of transient ischemic attack (TIA), and cerebral infarction without residual deficits; Z79.01 Long term (current) use of anticoagulants
CPT/HCPCS: 80053; 81001; 82962; 85025; 99285

== ENCOUNTER 2023-04-14 08:31 | Outpatient (RCR) | payer MEDICAID, SELFPAY ==
[2023-04-14 00:42] VITALS: BP 144/94; PULSE 77
--- NOTE | 2023-04-14 09:05 | BH.SGPN.GN ---
Behaviors/Verbalizations/Mental Status: [] Eye contact is good. Motor activity is appropriate. Appearance is casual. Speech is Appropriate. Mood is depressed. Affect is flat. Thoughts are linear and logical. No evidence of psychosis. Reviewed daily check in sheet and no reports of suicidal ideations or intent. Client Response/Progress/Benefit: [] Pt participated at times during the group discussion. Attentive. Daily symptom tracker notes 12/16 for anxiety and depression. Shared with the group I was so tired for the last few days All I wanted to do was sleep. She had insight this was most likely due to her sugars and went to the ER were her blood sugar was 430. Admits that she has been non-compliant with her DM medications. I feel stupid. Odem embarrassed in the ER. Discussed how her high sugar and non-compliance with medications impacts her mental as well as physical. health. Disclosed to the group that she knew she wasn't taking the medications. Long discussion was had with peers regarding strategies to remind oneself that medications are part of self-care. Group empathized with frustrations of being on several medications and their side effects. Pt report being motivated to be compliant with medications. Benefited from group support, encouragement, and feedback. Will continue in IOP to prevent decompensation, decrease anxiety/depression, and to improve functioning. Narrative Note: []
--- NOTE | 2023-04-14 09:10 | BH.SGPN.GN ---
Behaviors/Verbalizations/Mental Status: [] Pt alert and oriented, casually dressed and groomed. Eye contact good. Motor activity appropriate. Speech within normal limits-flat tone. Affect congruent, mood anxious. Thoughts linear, logical, no signs of hallucinations or delusions. Reviewed pt?s symptom tracker, no risk for suicidal ideation, plan, or intent 04/21/23 Client Response/Progress/Benefit: []Pt responded well to session, attentive and engaged. Pt reports feeling overwhelmed this morning as pt has a lot of stressors including not knowing where to stay for the weekend and financial stress. Pt stated she has to waste picker her granddaughter pedro and pt does not like driving her car that far. Pt plans to listen to music to help with anxiety on the drive. Pt shared she cleaned yesterday which was positive and then she was on the receiving end of an act of kindness which brought pt jesusita. Pt appeared to benefit from group support and feedback. Pt will continue IOP tx to promote mood stability, reduce negative thinking, and improve self-care. Narrative Note: []
--- NOTE | 2023-04-14 10:10 | BH.SGPN.GN ---
Behaviors/Verbalizations/Mental Status: []Pt alert and oriented, casually dressed and groomed. Eye contact fair. Motor activity appropriate. Speech within normal limits. Affect congruent, mood euthymic. Thoughts linear, logical, no signs of hallucinations or delusions. Client Response/Progress/Benefit: [] Pt receptive to session AEB contributing to small group discussion, as well as listening attentively to others, and taking notes. Worked with group to brainstorm the positive and negative aspects of stress on physical and mental health. Group did well to identify the benefits of stress as well as the impact of distress on performance, relationships, and mental health. Pt identified their personal top stressors as: hard time with taking her medications consistently, relationship stressors, and communicating. Pt seemed to benefit from increased awareness of current stressors and impact stress has on mental health. Recommended to continue IOP tx to increase healthy coping, challenge distortions, and prevent decompensation.
--- NOTE | 2023-04-14 11:15 | BH.SGPN.GN ---
Behaviors/Verbalizations/Mental Status: []Pt alert and oriented, casually dressed and groomed. Eye contact good. Motor activity appropriate. Speech within normal limits. Affect flat, mood euthymic. Thoughts linear, logical, no signs of hallucinations or delusions. Client Response/Progress/Benefit: []Pt was an active participant in group discussions and experiential activity. Attentive during psychoeducation on the 4 A's (Avoid, adapt, alter, accept) of coping with stress as well as strategies to identify stressors in which one has no control, little control, or a great deal of control over. Was able to identify the connection between the experimental activity and utilization of stress management skills. Pt reported she had to use skills in the moment and pt did well communicating with peers. The group linked effective communication as one of the biggest strategies for managing stressors. Benefited from increased awareness of stress management strategies. Will continue in IOP to prevent decompensation, increase self-care, and improve healthy boundary setting skills. ?? Narrative Note: []
--- NOTE | 2023-04-19 10:10 | BH.SGPN.GN ---
Behaviors/Verbalizations/Mental Status: [] Eye contact is good. Motor activity is appropriate. Appearance is casual. Speech is Appropriate. Mood is depressed. Affect is congruent. Thoughts are linear and logical. No evidence of psychosis. Client Response/Progress/Benefit: [] Client responded well to session, attentive to discussions, taking notes. Attentive during psychoeducation about social and perceived stigma. Participated during interaction discussions in which group defined stigma and identified the impact that social stigma and self stigma can have on an individual. Pt provided examples of stigma impacted her and prevent her from accepting help and to break the cycle. Stigma often led her to tell herself I deserve what I put myself through. Client seemed to benefit from increased awareness of how mental health stigma can impact progress and self-worth. Will continue in IOP to prevent decompensation, maintain safety, increase healthy coping, and improve functioning. Narrative Note: []
--- NOTE | 2023-04-19 11:12 | BH.SGPN.GN ---
Behaviors/Verbalizations/Mental Status: []Client alert and oriented, casually dressed and groomed. Eye contact good. Motor activity appropriate. Speech within normal limits. Affect congruent, mood dysthymic. Thoughts linear, logical, no signs of hallucinations or delusions. Client Response/Progress/Benefit:?[] Client engaged participant AEB participating in the activity, providing input during small group discussion, and listening attentively to others. Client appeared to connect with discussion in the benefits of addressing mental health stigma which included: improved relationships, increased willingness to seek help, increased happiness, and improved confidence. Group brainstormed strategies to combat social and perceived stigma. ?Client shared one thing she can personally do to combat stigma is to talk about her mental health more positively to herself and to practice using self-compassion. Appeared to benefit from increasing awareness of strategies to combat stigma. Will continue IOP tx to continue to improve healthy boundaries, improve emotion regulation and prevent decompensation. Narrative Note: []
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
--- NOTE | 2023-04-21 10:15 | BH.SGPN.GN ---
Behaviors/Verbalizations/Mental Status: []Pt alert and oriented, casually dressed and groomed. Eye contact good. Motor activity appropriate. Speech within normal limits. Affect congruent, mood dysthymic. Thoughts linear, logical, no signs of hallucinations or delusions. Client Response/Progress/Benefit: []Pt receptive of session, actively engaged throughout AEB taking notes and listening to discussion. Appeared to connect with group topic of cognitive distortions and the impact of thought patterns on mental health, coping behaviors, and relationships. Pt reports connecting with distortion of emotional reasoning the most. Pt stated she struggles with assuming others intentionally did things to hurt her because she was feeling hurt. Pt appeared to benefit from gaining insight on distorted thinking patterns and how this impacts overall mental health. Will continue IOP tx to improve self-esteem, increase healthy coping, promote healthy boundary setting, and prevent decompensation. Narrative Note: []
--- NOTE | 2023-04-21 11:15 | BH.SGPN.GN ---
Behaviors/Verbalizations/Mental Status: [] Eye contact is good. Motor activity is within normal limits. Appearance is casual. Speech is Appropriate. Mood is dysthymic. Affect is congruent. Thoughts are linear and logical. No evidence of psychosis. Client Response/Progress/Benefit: [] Pt was an active participant during group discussions and activity. Pt was placed in a smaller group and participated in quiz-show format in which small groups competed against each-other to answer questions based on identifying, challenging, and reframing cognitive distortions. Pt was engaged in the smaller group, participated in group interactions to brainstorm answers, and appeared to be comprehending cognitive distortions. Stated learning that ?I use emotional reasoning in my relationships which leads to not communicating when something upsets me?. Benefited from gaining further insight and awareness of cognitive distortions as well as practicing ways to reframe and challenge thoughts. Will continue in IOP to maintain safety, stabilize mood, and increase healthy coping skills. Narrative Note: []
--- NOTE | 2023-04-24 10:15 | BH.SGPN.GN ---
Behaviors/Verbalizations/Mental Status: []Eye contact is good. Motor activity is appropriate. Appearance is casual. Speech is Appropriate. Mood is depressed. Affect is congruent. Thoughts are linear and logical. No evidence of psychosis. Client Response/Progress/Benefit: []Pt was an active participant in group discussion. Attentive during psychoeducation on SMART goals. Participated in experiential activity. Engaged during interactive discussion on the benefits of setting goals which group identified as; increase self-worth, increase confidence, can motivate us, can lead to personal growth, and can give one a sense of purpose. Participated during interactive discussion on possible obstacles to obtaining goals and pt self-identified barriers as anxiety/fear of change and lack of motivation. Benefited from increased understanding of benefits of goals, obstacles to obtaining goals, and methods for setting appropriate goals (SMART goals). Will continue in IOP to prevent decompensation, improve mood stability, and promote consistent skill application. Narrative Note: []
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
--- NOTE | 2023-04-26 15:09 | BH.MTP_ITS ---
Treatment Plan Review Demographics Date of Admission:: 04/03/23 Date of Treatment Plan Review:: 04/26/23 Admitting Diagnoses:: 1. Bipolar 2 disorder (currently depressed) 2. Generalized anxiety disorder 3. Panic disorder 4. PTSD 5. Alcohol use disorder in full remission for 2 years Current Diagnoses:: 1. Bipolar 2 disorder (currently depressed) 2. Generalized anxiety disorder 3. Panic disorder 4. PTSD 5. Alcohol use disorder in full remission for 2 years Patient Status Patient's Response to Treatment:: Pt response to treatment has been variable due to pt?s inconsistent attendance and variable participation in the group setting. Pt has seen some improvements in participation and attendance in the past week, however this continues to remain a barrier to treatment. Pt contributes well during individual sessions and openly discusses current symptoms and stressors; however, pt remains inconsistent with skill application outside the tx environment. Status of Current Problems and Symptoms: Pt's symptoms are ongoing and have not significantly changed since admission. Pt is reporting moderate-severe symptoms of anxiety per the DSM-5, sleep issues, problems with memory, mild depression, and moderate anger. Pt reports accepting her current relationship is toxic but struggles with ending the relationship due to guilt and difficulties in finding a consistent place to stay. Pt additionally struggles with implementing healthy boundaries in her relationship with her son which continues to negatively impact her mental health. Additionally, pt reports marital and financial stressors. Progress Problem #1: Problem Name:: Depression, negative self-talk, guilt, and feeling like a burden. Status of Goals:: Objective 1- incomplete, ongoing work encouraged. It is unclear if pt?s DSM-5 scores for depression have decreased as pt did not return the initial DSM-5 assessment at time of intake. Pt reports ongoing depression, specifically related to her current living situation and relationship issues. Pt reports despite this, she has been reaching out to supports and continues to engage in activities she enjoys such as reading. Pt does continue to struggle with consistent skill application. Objective 2- in progress. Pt is learning different ways to improve conflict resolution and healthy boundaries. However, she continues to struggle with negative self-talk and fear of rejection which prevent her from being able to being able to effectively implement skills learned. Team Recommendations:: Treatment tx encourages pt to continue working on these objectives to further increase healthy boundary setting and reduce depressive sx. Pt will also be encourage to get involved with additional community support groups. Problem #2: Problem Name:: Anxiety, panic, and rumination. Status of Goals:: Objective 1-not complete. Pt?s continues to report daily anxiety since admission, but pt reports less panic overall. Pt continues to r eport ruminations that impact her ability to establish healthy boundaries and maintain toxic relationships. Objective 2- not complete. Pt is working on catching and reframing her distorted thought patterns that reinforce anxiety. Team Recommendations:: Treatment tx encourages pt to continue working on these objectives as pt continues to report anxiety. Pt reports less panic, but pt still reports ruminations that impact relationships and overall functioning. Pt also encouraged to continue working on effective communication within interpersonal relationships and daily self-care.
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
== END 2023-05-05 09:26 | disposition home or self-care (01) ==
LOC: BHIOP 08:31
PROVIDERS: PCP Family Medicine; Referring Provider Psychiatry & Neurology Psychiatry; Visit Provider Psychiatry & Neurology Psychiatry
DX: F31.81 Bipolar II disorder (principal); F41.1 Generalized anxiety disorder; F43.10 Post-traumatic stress disorder, unspecified; F41.0 Panic disorder [episodic paroxysmal anxiety]; F10.91 Alcohol use, unspecified, in remission; Z86.73 Personal history of transient ischemic attack (TIA), and cerebral infarction without residual deficits; I67.5 Moyamoya disease
CPT/HCPCS: S9480; 90832; 90853

== ENCOUNTER 2023-05-16 21:17 | Emergency (ER) | payer MEDICAID, SELFPAY ==
[2023-05-16 21:20] VITALS: BP 134/99; PULSE 96; RESP 15; TEMP 36.2; O2SAT 97; BMI 24.6
--- NOTE | 2023-05-16 22:10 | EDS_ITS ---
HPI History of Present Illness Chief Complaint: General Illness Informant: patient Narrative Narrative: Patient is a 52-year-old female with a past medical history of hypertension depression hyperlipidemia and previous stroke as well as type 2 diabetes. She states that today she has had upper abdominal discomfort with bouts of nausea without vomiting. She also states she has had 1-2 episodes of loose stool. She denies any known sick contact. 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 side HLD (hyperlipidemia) HTN (hypertension) Nicotine use disorder Panic disorder PTSD (post-traumatic stress disorder) Tobacco dependence due to cigarettes Urinary tract infection with hematuria Home Medications clonazepam 2 mg tablet (Klonopin) 2 mg PO TID anxiety 06/15/14 [History Last Taken 07/22/20] clopidogrel 75 mg tablet (Plavix) 75 mg PO QHS heart 07/03/16 [History Last Taken 07/22/20] glimepiride 2 mg tablet 4 mg PO DAILY blood sugar 01/09/17 [History Last Taken 07/22/20] atorvastatin 80 mg tablet (Lipitor) 80 mg PO QHS cholesterol lowering 03/29/18 [History Last Taken 07/22/20] aspirin 81 mg chewable tablet 81 mg PO DAILY@0800 [facility] 07/23/20 [History Last Taken 07/22/20] empagliflozin 25 mg tablet (Jardiance) 40 mg PO DAILY 05/11/22 [History Last Taken Unknown] omeprazole 20 mg capsule,delayed release 20 mg PO Q8H PRN GERD 04/12/23 [History Last Taken Unknown] quetiapine 100 mg tablet (Seroquel) 150 mg PO QHS 04/12/23 [History Last Taken Unknown] ondansetron 4 mg disintegrating tablet 4 mg PO TID PRN nausea and vomiting #21 tabs 05/16/23 [Rx Last Taken Unknown] Allergy/AdvReac Type Severity Reaction Status Date / Time azithromycin Allergy Diarrhea Verified 05/16/23 21:24 doxycycline Allergy Rash Verified 05/16/23 21:24 egg Allergy Unknown Verified 05/16/23 21:24 Penicillins Allergy Rash Verified 05/16/23 21:24 cyclobenzaprine AdvReac Rash Verified 05/16/23 21:24 [From Flexeril] gabapentin AdvReac Other Verified 05/16/23 21:24 Family History Grandmother Cancer Heart disease Myocardial infarction Aortic aneurysm rupture Hypertension Father Myocardial infarction Heart disease Hypertension Surgical History History of hysterectomy S/P cholecystectomy S/P tonsillectomy and adenoidectomy Social History household members: none Smoking Status: Current every day smoker tobacco type: cigarettes substance use type: does not use ROS ROS ED Constitutional Constitutional ED: Denies chills or fever(s) ENT ENT ED: Denies sore throat Cardiovascular Cardiovascular: Denies chest pain Respiratory/Chest Respiratory/Chest: Denies cough or dyspnea Gastrointestinal Gastrointestinal: Reports abdominal pain, diarrhea and nausea; Denies vomiting Genitourinary Genitourinary ED: Denies dysuria Musculoskeletal Musculoskeletal: Denies myalgias Integumentary Denies rash Neurologic Neurologic: Denies headache(s) Hematologic/Lymphatic Hematologic/Lymphatic: Denies easy bleeding or easy bruising EXAM Physical Exam Const Vital Signs: 05/16/23 21:20 05/16/23 21:32 Temperature 97.1 F L Temperature Source Temporal Pulse Rate 96 Respiratory Rate 15 Respiratory Effort Normal Blood Pressure 134/99 H Blood Pressure Mean 110 Pulse Ox 97 Oxygen Delivery Method Room Air Positive well nourished and well developed General Appearance ED: well developed HEENT Reports dry mucous membranes HEENT Narrative: Mucous membranes are dry and tacky without secondary changes to suggest infe ction Mouth ED: Yes dry mucous membranes Mouth: dry mucous membranes Eyes PERRL and EOMs intact bilaterally General Eye ED: Negative for scleral icterus Neck supple Neck Narrative: No nuchal rigidity or meningeal signs noted Resp normal respiratory effort and clear to auscultation bilaterally Cardio regular rate and regular rhythm Rate: other Other Details: Radial and carotid pulses are equal and symmetric GI non-distended GI Narrative: Abdomen is soft and nondistended with hypoactive bowel sounds. Patient has a ventral hernia that is reducible in nature. No voluntary guarding or rigidity. No pulsatile mass or fluid wave. No increased tympany noted. Auscultation: hypoactive bowel sounds Palpation: soft Extremity normal to inspection Neuro oriented x3 Neuro Narrative: Patient is awake alert and oriented to person place and time. She has chronic right-sided weakness from previous CVA. No new deficits noted Sensorium / Orientation: alert Psych Psych Narrative: Patient has a flat affect Skin no rashes or lesions noted Skin Narrative: Skin turgor is increased General Skin Exam: Negative for jaundice MDM MDM MDM Narrative Medical decision making narrative: Patient arrived to the ER slightly hypertensive but has a past medical history of this and otherwise with stable vitals. Physical exam is consistent with mild dehydration and with report of nausea as well as loose stool differential shaw gnosis is for viral gastroenteritis versus biliary colic versus pancreatitis versus obstruction. Labs were obtained which showed no clinically significant findings such as acute kidney injury or electrolyte derangement or changes for DKA or HHS. An acute abdominal x-ray was obtained and reveals no signs of obstruction or perforation. After IV hydration and Zofran patient reported feeling better and stated her nausea had resolved. Therefore at this time as work-up is negative and patient's been feeling better she is otherwise safe for discharge. History & Record Review Discussion w/independent historian: Patient Lab Data Attestation: I reviewed the patient's lab results. Labs: Laboratory Results - last 24 hr 05/16/23 22:30 WBC 8.3 RBC 5.02 Hgb 15.8 H Hct 47.3 H MCV 94.2 MCH 31.5 MCHC 33.4 RDW Std Deviation 42.5 RDW Coeff of Arlene 12.3 Plt Count 186 MPV 11.4 Immature Gran % (Auto) 0.200 Neut % (Auto) 58.3 Lymph % (Auto) 33.7 [place] % (Auto) 4.6 Eos % (Auto) 2.4 Baso % (Auto) 0.8 Absolute Neuts (auto) 4.9 Absolute Lymphs (auto) 2.80 Nucleated RBC % 0 Sodium 138 Potassium 3.6 Chloride 105 Carbon Dioxide 26.0 Anion Gap 7 BUN 14 Creatinine 0.91 Estim Creat Clear Calc 68.47 Est GFR (MDRD) Af Amer 83 Est GFR (MDRD) Non-Af 69 BUN/Creatinine Ratio 15.4 Glucose 99 Calcium 9.2 Total Bilirubin 0.70 Direct Bilirubin 0.17 AST 32 ALT 60 H Alkaline Phosphatase 111 Total Protein 8.5 H Albumin 4.3 Globulin 4.2 Lipase 60 Radiography Diagnostic Testing: Clinical Impression(s) from Imaging Studies Acute Abdomen Series 05/16/23 22:35 IMPRESSION: No acute findings. Electronically Signed: Valencia Valencia MD at 23:12 EDT , Acute abdominal series with 1 view chest as interpreted by the emergency medicine physician reveals a nonobstructive nonspecific bowel gas pattern. Chest x-ray component reveals no acute infiltrate pneumothorax or pleural effusion. Discharge Plan Triage Chief Complaint: General Illness Other Complaint: Anxiety ED Provider: John Fregoso Dx/Rx/DC Orders Clinical Impression: Mild dehydration, Nausea, Diabetes mellitus type 2 in obese Instructions: Dehydration, ED Viral Syndrome (Adult) Prescriptions: New ondansetron 4 mg tablet,disintegrating 4 mg PO TID PRN (Reason: nausea and vomiting) Qty: 21 0RF No Action clonazepam [Klonopin] 2 MG tablet 2 mg PO TID clopidogrel [Plavix] 75 MG tablet 75 mg PO QHS glimepiride 2 MG tablet 4 mg PO DAILY Patient Comments: atorvastatin [Lipitor] 80 MG tablet 80 mg PO QHS aspirin 81 MG tablet,chewable 81 mg PO DAILY@0800 Jardiance 25 mg Tablet 40 mg PO DAILY quetiapine [Seroquel] 100 mg tablet 150 mg PO QHS omeprazole 20 mg capsule,delayed release(DR/EC) 20 mg PO Q8H PRN (Reason: GERD) Primary Care Provider: Ran Dill Referrals: Ran Dill MD [Primary Care Provider] - Activity Restrictions/Additional Instructions: Please take the Zofran as directed to control any further bouts of nausea and continue your normal home medications. Keep yourself well-hydrated and return to the ER should you have any further concerns. Disposition Disposition: Home, Self Care
[2023-05-16] MEDS: Ondansetron 4 MG/2 ML Vial IV (22:30)
[2023-05-16] MEDS: 0.9% Normal Saline (1000mL) 1,000 ML 999 ML IV (22:30)
--- NOTE | 2023-05-16 22:35 | RAD_ITS ---
INDICATION: abd pain EXAMINATION/TECHNIQUE: X-RAY - XR Abdomen Series W/ Chest 1 View COMPARISON: Chest x-ray 11/30/2019 FINDINGS: AP supine and upright views of the abdomen, and upright view of the chest. 5 images total. The bowel gas pattern is normal. There is no bowel obstruction or free intraperitoneal air. No abnormal mass or calcification is seen. Mild curvature of the lumbar spine convex left. The lungs are clear. Cardiac silhouette is normal size. RAD/Acute Abdomen Inc Chest IMPRESSION: No acute findings. Electronically Signed: Valencia Valencia MD at 23:12 EDT ,
[2023-05-16 22:40] LABS: Absolute Neutrophil Count 4.9 X10^3/uL (2.0-7.7); Basophil# 0.07 X10^3/uL; Basophil% 0.8 % (0-1); Eosinophils% 2.4 % (0-5); Hematocrit 47.3 % (37-47); Hemoglobin 15.8 g/dL (12.0-15.0); Lymphocyte % 33.7 % (19-41); Mean Corp Hgb Conc 33.4 g/dL (32-36); Mean Corpuscular Hgb 31.5 pg (27.0-32.0); Mean Corpuscular Volume 94.2 fL (81-99); Mean Platelet Vol. 11.4 fl (6.2-12.0); Monocyte# 0.38 X10^3/uL; Monocyte% 4.6 % (0-10); NRBC Flagged by Analyzer 0 % (0-5); Neutrophil # 4.85 X10^3/uL (2.7-7.7); Neutrophil % 58.3 % (47-70); Platelet Count 186 K/mm3 (150-450); RBC Distribution Width CV 12.3 % (11.6-14.6); RBC Distribution Width SD 42.5 fl (35.1-43.9); Red Blood Count 5.02 M/mm3 (4.2-5.4); White Blood Count 8.3 K/mm3 (4.4-11.0)
[2023-05-16 22:57] LABS: AST(SGOT) 32 U/L (15-37); Alanine Aminotransfer ALT/SGPT 60 U/L (13-56); Albumin, Serum 4.3 g/dL (3.2-5.0); Alkaline Phosphatase 111 U/L (45-117); Anion Gap 7 (5-15); BUN 14 mg/dL (7-18); BUN/Creat Ratio 15.4 RATIO (10-20); Bilirubin, Direct 0.17 mg/dL (0.00-0.30); Calcium,Total 9.2 mg/dL (8.5-10.1); Chloride 105 mmol/L (98-107); Creatinine, Serum 0.91 mg/dL (0.55-1.02); EST Glomerular Filtration Rate 69 mL/min (>60); Est Glom Filt Rate - Afr Amer 83 mL/min (>60); Estimated Creatinine Clearance 68.47 ml/min; Globulin 4.2 g/dL (2.2-4.2); Glucose 99 mg/dL (74-106); Lipase 60 U/L (13-75); Potassium 3.6 mmol/L (3.5-5.1); Protein, Total 8.5 g/dL (6.4-8.2); Sodium Level 138 mmol/L (136-145)
== END 2023-05-16 23:32 | disposition home or self-care (01) ==
PROVIDERS: Emergency Provider Emergency Medicine; PCP Family Medicine; Visit Provider Emergency Medicine
DX: E86.0 Dehydration (principal); E11.9 Type 2 diabetes mellitus without complications; R11.0 Nausea; F17.210 Nicotine dependence, cigarettes, uncomplicated; E66.9 Obesity, unspecified; Z86.73 Personal history of transient ischemic attack (TIA), and cerebral infarction without residual deficits
CPT/HCPCS: 74022; 80048; 80076; 83690; 85025; 96361; 96374; 99283; J7030; A4216; J2405

== ENCOUNTER 2023-06-08 01:21 | Emergency (ER) | payer MEDICAID, SELFPAY ==
[2023-06-08 01:22] VITALS: BP 160/106; PULSE 97; RESP 15; TEMP 36.6; O2SAT 95; BMI 25.2
[2023-06-08 02:16] LABS: Absolute Lymphocyte Count 3.08 X10^3/uL (0.83-4.51); Absolute Neutrophil Count 4.4 X10^3/uL (2.0-7.7); Basophil# 0.07 X10^3/uL; Basophil% 0.8 % (0-1); Eosinophil# 0.23 X10^3/uL; Eosinophils% 2.7 % (0-5); Hematocrit 44.3 % (37-47); Hemoglobin 14.4 g/dL (12.0-15.0); Lymphocyte # 3.08 X10^3/ul (0.83-4.51); Lymphocyte % 36.7 % (19-41); Mean Corp Hgb Conc 32.5 g/dL (32-36); Mean Corpuscular Hgb 31.2 pg (27.0-32.0); Mean Corpuscular Volume 96.1 fL (81-99); Mean Platelet Vol. 11.6 fl (6.2-12.0); Monocyte# 0.59 X10^3/uL; NRBC Flagged by Analyzer 0 % (0-5); Neutrophil % 52.4 % (47-70); POSITIVE COUNT YES; Platelet Count 147 K/mm3 (150-450); RBC Distribution Width CV 12.4 % (11.6-14.6); RBC Distribution Width SD 43.4 fl (35.1-43.9); Red Blood Count 4.61 M/mm3 (4.2-5.4); White Blood Count 8.4 K/mm3 (4.4-11.0)
[2023-06-08 02:17] LABS: Differential Indicated SCAN CRITERIA MET
[2023-06-08 02:39] LABS: Anion Gap 5 (5-15); BUN 20 mg/dL (7-18); BUN/Creat Ratio 22.9 RATIO (10-20); Chloride 108 mmol/L (98-107); Creatinine, Serum 0.87 mg/dL (0.55-1.02); EST Glomerular Filtration Rate 73 mL/min (>60); Est Glom Filt Rate - Afr Amer 88 mL/min (>60); Estimated Creatinine Clearance 71.62 ml/min; Glucose 95 mg/dL (74-106); Platelet Estimate SLT DEC (ADEQ); Potassium 3.7 mmol/L (3.5-5.1); Sodium Level 140 mmol/L (136-145)
[2023-06-08] MEDS: 0.9% Normal Saline (1000mL) 1,000 ML 1000 ML IV (02:42)
[2023-06-08] MEDS: Metoclopramide 10 MG/2 ML Vial IV (02:42)
[2023-06-08] MEDS: DiphenhydrAMINE 50 MG/ML Syringe 25 MG IV (02:44)
[2023-06-08] MEDS: Ketorolac 30 MG/ML Syringe IV (02:45)
[2023-06-08 03:38] VITALS: BP 109/77; PULSE 73; RESP 15; O2SAT 95
--- NOTE | 2023-06-08 03:50 | EX.ED.DYSGE1 ---
HPI History of Present Illness Chief Complaint: Other, Pain/Inj Detail of Chief Complaint: Migraine and abdominal pain Informant: patient Narrative Narrative: Patient presents with a migraine headache that started earlier today. She points across her forehead and describing the area of pain. She does have light sensitivity. No recent head injuries or URI symptoms. Patient also complains of right upper abdominal wall pain. She is a hernia in this location. She states she was recently examined by both her primary care physician and one of the local surgeons and they were palpating deeply in this area. Since that time it has been sore. [facility] Medical History Alcohol use disorder Bipolar 2 disorder, major depressive episode CVA (cerebral vascular accident) Diabetic neuropathy DM2 (diabetes mellitus, type 2) Generalized anxiety disorder Hemiplegia and hemiparesis following cerebral infarction affecting left non-dominant side HLD (hyperlipidemia) HTN (hypertension) Nicotine use disorder Panic disorder PTSD (post-traumatic stress disorder) Tobacco dependence due to cigarettes Urinary tract infection with hematuria Home Medications clonazepam 2 mg tablet (Klonopin) 2 mg PO TID anxiety 06/15/14 [History Last Taken 07/22/20] clopidogrel 75 mg tablet (Plavix) 75 mg PO QHS heart 07/03/16 [History Last Taken 07/22/20] glimepiride 2 mg tablet 4 mg PO DAILY blood sugar 01/09/17 [History Last Taken 07/22/20] atorvastatin 80 mg tablet (Lipitor) 80 mg PO QHS cholesterol lowering 03/29/18 [History Last Taken 07/22/20] aspirin 81 mg chewable tablet 81 mg PO DAILY@0800 [facility] 07/23/20 [History Last Taken 07/22/20] empagliflozin 25 mg tablet (Jardiance) 40 mg PO DAILY 05/11/22 [History Last Taken Unknown] omeprazole 20 mg capsule,delayed release 20 mg PO Q8H PRN GERD 04/12/23 [History Last Taken Unknown] quetiapine 100 mg tablet (Seroquel) 150 mg PO QHS 04/12/23 [History Last Taken Unknown] ondansetron 4 mg disintegrating tablet 4 mg PO TID PRN nausea and vomiting #21 tabs 05/16/23 [Rx Last Taken Unknown] Allergy/AdvReac Type Severity Reaction Status Date / Time azithromycin Allergy Diarrhea Verified 06/08/23 01:33 doxycycline Allergy Rash Verified 06/08/23 01:33 egg Allergy Unknown Verified 06/08/23 01:33 Penicillins Allergy Rash Verified 06/08/23 01:33 cyclobenzaprine AdvReac Rash Verified 06/08/23 01:33 [From Flexeril] gabapentin AdvReac Other Verified 06/08/23 01:33 Family History Grandmother Cancer Heart disease Myocardial infarction Aortic aneurysm rupture Hypertension Father Myocardial infarction Heart disease Hypertension Surgical History History of hysterectomy S/P cholecystectomy S/P tonsillectomy and adenoidectomy Social History household members: none Smoking Status: Current every day smoker tobacco type: cigarettes substance use type: does not use ROS ROS ED Constitutional Constitutional ED: Denies chills or fever(s) Eyes Eyes: Denies change in vision ENT ENT ED: Denies rhinorrhea or sore throat Cardiovascular Cardiovascular: Denies chest pain or palpitations Respiratory/Chest Respiratory/Chest: Denies cough or dyspnea Gastrointestinal Gastrointestinal: Reports abdominal pain; Denies diarrhea, nausea or vomiting Genitourinary Genitourinary ED: Denies dysuria Musculoskeletal Musculoskeletal: Denies back pain or extremity pain Integumentary Denies Abrasions or rash Neurologic Neurologic: Reports headache(s); Denies weakness Psychiatric Psychiatric: Denies anxiety or depression Allergic/Immunologic Allergic/Immunologic ED: Denies lip swelling or urticaria EXAM Physical Exam Const Vital Signs: 06/08/23 01:22 06/08/23 01:30 06/08/23 03:38 Temperature 97.8 F Temperature Source Oral Pulse Rate 97 73 Respiratory Rate 15 15 Respiratory Effort Normal Non-Labored Respiratory Pattern Normal Blood Pressure 160/106 H 109/77 Blood Pressure Mean 124 87 Pulse Ox 95 95 Oxygen Delivery Method Room Air Room Air Positive well nourished and well developed General Appearance ED: well developed HEENT Reports moist mucous membranes Eyes EOMs intact bilaterally Neck Neck Narrative: No meningismus. Chest Wall inspection of chest normal and palpation of chest normal Resp normal respiratory effort and clear to auscultation bilaterally Cardio regular rate and regular rhythm GI GI Narrative: Abdomen soft with mild tenderness in the right upper quadrant. No palpable hernias at this time. Patient allows deep palpation throughout. Active bowel sounds are noted. Extremity normal to inspection Neuro oriented x3 and no sensory deficits noted Motor Exam: strength 5/5 throughout Skin no rashes or lesions noted MDM MDM MDM Narrative Medical decision making narrative: IV line established. Labwork obtained to evaluate for leukocytosis, anemia, and electrolyte derangement. Patient given IV fluids along with Toradol, Reglan, and Benadryl. Lab Data Attestation: I reviewed the patient's lab results. Labs: Laboratory Results - last 24 hr 06/08/23 02:07 WBC 8.4 RBC 4.61 Hgb 14.4 Hct 44.3 MCV 96.1 MCH 31.2 MCHC 32.5 RDW Std Deviation 43.4 RDW Coeff of Arlene 12.4 Plt Count 147 L MPV 11.6 Immature Gran % (Auto) 0.400 Neut % (Auto) 52.4 Lymph % (Auto) 36.7 [place] % (Auto) 7.0 Eos % (Auto) 2.7 Baso % (Auto) 0.8 Absolute Neuts (auto) 4.4 Absolute Lymphs (auto) 3.08 Nucleated RBC % 0 Platelet Estimate SLT DEC Sodium 140 Potassium 3.7 Chloride 108 H Carbon Dioxide 27.0 Anion Gap 5 BUN 20 H Creatinine 0.87 Estim Creat Clear Calc 71.62 Est GFR (MDRD) Af Amer 88 Est GFR (MDRD) Non-Af 73 BUN/Creatinine Ratio 22.9 H Glucose 95 Calcium 9.0 Treatment and Re-Evaluation :: CBC was normal white count 8.4 with a hemoglobin of 14.4. Normal differential. Chemistry studies unremarkable. On repeat evaluation patient reports significant improvement in her headache. She be discharged home at this time to continue her normal medication regimen. Discharge Plan Triage Chief Complaint: Other, Pain/Inj ED Provider: Mary Joseph Dx/Rx/DC Orders Clinical Impression: Migraine, Abdominal wall pain Instructions: ED Abdominal Pain Unkn Cause Fem, ED, Migraine (Classical) Prescriptions: No Action clonazepam [Klonopin] 2 MG tablet 2 mg PO TID clopidogrel [Plavix] 75 MG tablet 75 mg PO QHS glimepiride 2 MG tablet 4 mg PO DAILY Patient Comments: atorvastatin [Lipitor] 80 MG tablet 80 mg PO QHS aspirin 81 MG tablet,chewable 81 mg PO DAILY@0800 Jardiance 25 mg Tablet 40 mg PO DAILY ondansetron 4 mg tablet,disintegrating 4 mg PO TID PRN (Reason: nausea and vomiting) Qty: 21 0RF quetiapine [Seroquel] 100 mg tablet 150 mg PO QHS omeprazole 20 mg capsule,delayed release(DR/EC) 20 mg PO Q8H PRN (Reason: GERD) Primary Care Provider: Ran Dill Referrals: Ran Dill MD [Primary Care Provider] - As Needed Disposition Disposition: Home, Self Care
== END 2023-06-08 04:03 | disposition home or self-care (01) ==
PROVIDERS: Emergency Provider Emergency Medicine; PCP Family Medicine; Visit Provider Emergency Medicine
DX: G43.909 Migraine, unspecified, not intractable, without status migrainosus (principal); I69.354 Hemiplegia and hemiparesis following cerebral infarction affecting left non-dominant side; E11.40 Type 2 diabetes mellitus with diabetic neuropathy, unspecified; R10.11 Right upper quadrant pain; I10 Essential (primary) hypertension; E78.5 Hyperlipidemia, unspecified; F17.210 Nicotine dependence, cigarettes, uncomplicated; Z90.49 Acquired absence of other specified parts of digestive tract; Z79.02 Long term (current) use of antithrombotics/antiplatelets; Z79.84 Long term (current) use of oral hypoglycemic drugs; Z79.899 Other long term (current) drug therapy
CPT/HCPCS: 80048; 85025; 96361; 96374; 96375; 99283; J7030; A4216

== ENCOUNTER 2023-06-21 01:51 | Emergency (ER) | payer MEDICAID, SELFPAY ==
[2023-06-21 01:52] VITALS: BP 167/99; PULSE 85; RESP 12; TEMP 36.9; O2SAT 98; BMI 25.4
--- NOTE | 2023-06-21 02:28 | EX.ED.DYSGE1 ---
HPI History of Present Illness Chief Complaint: Nausea/Vomiting/Diarrhea Informant: patient and spouse/S.O. Narrative Narrative: Presents for day history indigestion and abdominal cramping. At midnight diarrhea x1 nonbloody. Nausea without vomiting. Cholecystectomy in the past. No fevers. No urinary symptoms. Denies recent antibiotics. 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 She is on aspirin and Plavix. Reports been using Pepto-Bismol. Denies black stools. History of alcoholic pancreatitis in the past however states currently no alcohol use. [facility] Medical History Alcohol use disorder Bipolar 2 disorder, major depressive episode CVA (cerebral vascular accident) Diabetic neuropathy DM2 (diabetes mellitus, type 2) Generalized anxiety disorder Hemiplegia and hemiparesis following cerebral infarction affecting left non-dominant side HLD (hyperlipidemia) HTN (hypertension) Nicotine use disorder Panic disorder PTSD (post-traumatic stress disorder) Tobacco dependence due to cigarettes Urinary tract infection with hematuria Home Medications clonazepam 2 mg tablet (Klonopin) 2 mg PO TID anxiety 06/15/14 [History Last Taken 07/22/20] clopidogrel 75 mg tablet (Plavix) 75 mg PO QHS heart 07/03/16 [History Last Taken 07/22/20] glimepiride 2 mg tablet 4 mg PO DAILY blood sugar 01/09/17 [History Last Taken 07/22/20] atorvastatin 80 mg tablet (Lipitor) 80 mg PO QHS cholesterol lowering 03/29/18 [History Last Taken 07/22/20] aspirin 81 mg chewable tablet 81 mg PO DAILY@0800 [facility] 07/23/20 [History Last Taken 07/22/20] empagliflozin 25 mg tablet (Jardiance) 40 mg PO DAILY 05/11/22 [History Last Taken Unknown] omeprazole 20 mg capsule,delayed release 20 mg PO Q8H PRN GERD 04/12/23 [History Last Taken Unknown] quetiapine 100 mg tablet (Seroquel) 150 mg PO QHS 04/12/23 [History Last Taken Unknown] ondansetron 4 mg disintegrating tablet 4 mg PO TID PRN nausea and vomiting #21 tabs 05/16/23 [Rx Last Taken Unknown] dicyclomine 20 mg tablet 20 mg PO TID PRN abdominal pain #14 tabs 06/21/23 [Rx Last Taken Unknown] ondansetron 4 mg disintegrating tablet 4 mg PO Q8H PRN PRN Nausea #10 tabs 06/21/23 [Rx Last Taken Unknown] Allergy/AdvReac Type Severity Reaction Status Date / Time azithromycin Allergy Diarrhea Verified 06/21/23 01:56 doxycycline Allergy Rash Verified 06/21/23 01:56 egg Allergy Unknown Verified 06/21/23 01:56 Penicillins Allergy Rash Verified 06/21/23 01:56 cyclobenzaprine AdvReac Rash Verified 06/21/23 01:56 [From Flexeril] gabapentin AdvReac Other Verified 06/21/23 01:56 Family History Grandmother Cancer Heart disease Myocardial infarction Aortic aneurysm rupture Hypertension Father Myocardial infarction Heart disease Hypertension Surgical History History of hysterectomy S/P cholecystectomy S/P tonsillectomy and adenoidectomy Social History household members: none Smoking Status: Light Smoker (<10/day) substance use type: does not use ROS ROS ED Constitutional Constitutional ED: Denies chills, fever(s) or sweats Eyes Eyes: Denies change in vision ENT ENT ED: Denies dysphagia or sore throat Cardiovascular Cardiovascular: Denies chest pain, leg edema, palpitations or racing heartbeat Respiratory/Chest Respiratory/Chest: Denies cough, dyspnea or dyspnea on exertion Gastrointestinal Gastrointestinal: Reports abdominal pain, diarrhea and nausea; Denies vomiting Genitourinary Genitourinary ED: Denies dysuria, hematuria or urinary frequency Musculoskeletal Musculoskeletal: Denies back pain, extremity pain or neck pain Integumentary Denies rash or wounds Neurologic Neurologic: Denies headache(s), paresthesias or weakness EXAM Physical Exam Const Vital Signs: 06/21/23 01:52 06/21/23 01:52 Temperature 98.5 F Temperature Source Oral Pulse Rate 85 Respiratory Rate 12 Blood Pressure 167/99 H Blood Pressure Mean 121 Pulse Ox 98 Oxygen Delivery Method Room Air Positive well nourished and well developed General Appearance ED: well developed and NAD HEENT Reports moist mucous membranes normocephalic and atraumatic Eyes PERRL, EOMs intact bilaterally and conjunctivae normal General Eye ED: Yes normal appearance of both eyes Neck no lymphadenopathy and supple General: Negative for tenderness Chest Wall Chest: Negative for tenderness Resp normal respiratory effort and normal air movement Effort and Inspection: symmetric chest movement; Negative for respiratory distress Cardio regular rate, regular rhythm and no murmurs Peripheral Pulses: pulses 2+ throughout GI normal to inspection, nondistended, normoactive bowel sounds GI Narrative: Negative Bello's or McBurney's tenderness. No guarding or rebound. Palpation: Negative for guarding or rebound tenderness present Back/Spine no CVA tenderness and no thoracic nor lumbar tenderness Extremity normal to inspection General Extremety ED: Negative for edema or tenderness General Extremity: Negative for edema Neuro oriented x3 and no sensory deficits noted Sensorium / Orientation: awake and alert Skin no rashes or lesions noted and no wounds MDM MDM MDM Narrative Medical decision making narrative: Interventions / MDM: Differential diagnosis: Electrolyte abnormalities, diarrhea, abdominal cramping Diagnosis considered but do not suspect: No clinical appendicitis. No C. difficile risk factors. No findings of pancreatitis with normal lipase. My EKG interpretation: N/A Imaging independently reviewed and interpreted by myself: N/A External documents reviewed: N/A Test considered but not ordered:N/A ED course: Patient vital signs stable nonsurgical abdomen on exam. History of pancreatitis. With her mid abdominal cramping. Labs are all obtain, IV fluids, history of Zofran and Bentyl. Laboratory work also will slight hyperglycemia glucose of 187, gap is normal. Normal electrolytes normal lipase. White count normal. On reevaluation symptoms improved. Abdomen remains soft, she is tolerating oral fluids on reevaluation. Prescription with meds to bed for Zofran and Bentyl use as needed. Outpatient follow-up. Return precautions. All questions were answered. Re-evaluation: stable Disposition discussed with patient/family/significant other: Patient and significant other Case discussed with consulting clinician: N/A This note was generated with [employer] dictation software. It may contain incorrect words, spelling, and punctuation that were not noted in checking the note before signing. Lab Data Attestation: I reviewed the patient's lab results. Labs: Laboratory Results - last 24 hr 06/21/23 02:42 WBC 8.9 RBC 4.98 Hgb 15.6 H Hct 47.4 H MCV 95.2 MCH 31.3 MCHC 32.9 RDW Std Deviation 43.8 RDW Coeff of Arlene 12.4 Plt Count 195 MPV 11.5 Immature Gran % (Auto) 0.200 Neut % (Auto) 49.2 Lymph % (Auto) 39.5 Wheeler % (Auto) 5.9 Eos % (Auto) 4.1 Baso % (Auto) 1.1 H Absolute Neuts (auto) 4.4 Absolute Lymphs (auto) 3.50 Nucleated RBC % 0 Sodium 139 Potassium 3.5 Chloride 107 Carbon Dioxide 28.0 Anion Gap 4 L BUN 14 Creatinine 0.79 Estim Creat Clear Calc 77.98 Est GFR (MDRD) Af Amer 98 Est GFR (MDRD) Non-Af 81 BUN/Creatinine Ratio 17.7 Glucose 187 H Calcium 8.9 Total Bilirubin 0.40 AST 31 ALT 81 H Alkaline Phosphatase 105 Total Protein 7.7 Albumin 3.6 Globulin 4.1 Albumin/Globulin Ratio 0.9 Lipase 49 Discharge Plan Triage Chief Complaint: Nausea/Vomiting/Diarrhea ED Provider: Agusto Palma Dx/Rx/DC Orders Clinical Impression: Abdominal cramping, Diarrhea, Hyperglycemia Instructions: Abdominal Pain, ED Diarrhea, Unknown Cause Prescriptions: New ondansetron [ondansetron] 4 mg tablet,disintegrating 4 mg PO Q8H PRN PRN (Reason: Nausea) Qty: 10 0RF dicyclomine 20 mg tablet 20 mg PO TID PRN (Reason: abdominal pain) Qty: 14 0RF No Action clonazepam [Klonopin] 2 MG tablet 2 mg PO TID clopidogrel [Plavix] 75 MG tablet 75 mg PO QHS glimepiride 2 MG tablet 4 mg PO DAILY Patient Comments: atorvastatin [Lipitor] 80 MG tablet 80 mg PO QHS aspirin 81 MG tablet,chewable 81 mg PO DAILY@0800 Jardiance 25 mg Tablet 40 mg PO DAILY ondansetron 4 mg tablet,disintegrating 4 mg PO TID PRN (Reason: nausea and vomiting) Qty: 21 0RF quetiapine [Seroquel] 100 mg tablet 150 mg PO QHS omeprazole 20 mg capsule,delayed release(DR/EC) 20 mg PO Q8H PRN (Reason: GERD) Primary Care Provider: Ran Dill Referrals: Ran Dill MD [Primary Care Provider] - 3-5 Days if not improving Activity Restrictions/Additional Instructions: Labs stable glucose 187. Take nausea medicine as needed continue oral fluids for hydration. Dicyclomine as needed for abdominal cramping. Follow-up with your doctor. If any worsening symptoms not controlled medications, return to ED for reevaluation. Disposition Disposition: Home, Self Care
[2023-06-21] MEDS: Ondansetron 4 MG/2 ML Vial IV (02:44)
[2023-06-21] MEDS: Dicyclomine 10 MG Capsule 20 MG PO (02:44)
[2023-06-21] MEDS: 0.9% Normal Saline (1000mL) 1,000 ML 1000 ML IV (02:44)
[2023-06-21 02:50] LABS: Absolute Neutrophil Count 4.4 X10^3/uL (2.0-7.7); Basophil% 1.1 % (0-1); Eosinophil# 0.36 X10^3/uL; Eosinophils% 4.1 % (0-5); Hematocrit 47.4 % (37-47); Hemoglobin 15.6 g/dL (12.0-15.0); Lymphocyte % 39.5 % (19-41); Mean Corp Hgb Conc 32.9 g/dL (32-36); Mean Corpuscular Hgb 31.3 pg (27.0-32.0); Mean Corpuscular Volume 95.2 fL (81-99); Mean Platelet Vol. 11.5 fl (6.2-12.0); Monocyte# 0.52 X10^3/uL; Monocyte% 5.9 % (0-10); NRBC Flagged by Analyzer 0 % (0-5); Neutrophil # 4.35 X10^3/uL (2.7-7.7); Neutrophil % 49.2 % (47-70); Platelet Count 195 K/mm3 (150-450); RBC Distribution Width CV 12.4 % (11.6-14.6); RBC Distribution Width SD 43.8 fl (35.1-43.9); Red Blood Count 4.98 M/mm3 (4.2-5.4); White Blood Count 8.9 K/mm3 (4.4-11.0)
[2023-06-21 03:07] LABS: ALB/GLOB Ratio 0.9 RATIO (0.9-2.4); AST(SGOT) 31 U/L (15-37); Alanine Aminotransfer ALT/SGPT 81 U/L (13-56); Albumin, Serum 3.6 g/dL (3.2-5.0); Alkaline Phosphatase 105 U/L (45-117); Anion Gap 4 (5-15); BUN 14 mg/dL (7-18); BUN/Creat Ratio 17.7 RATIO (10-20); Calcium,Total 8.9 mg/dL (8.5-10.1); Chloride 107 mmol/L (98-107); Creatinine, Serum 0.79 mg/dL (0.55-1.02); EST Glomerular Filtration Rate 81 mL/min (>60); Est Glom Filt Rate - Afr Amer 98 mL/min (>60); Estimated Creatinine Clearance 77.98 ml/min; Globulin 4.1 g/dL (2.2-4.2); Glucose 187 mg/dL (74-106); Lipase 49 U/L (13-75); Potassium 3.5 mmol/L (3.5-5.1); Protein, Total 7.7 g/dL (6.4-8.2); Sodium Level 139 mmol/L (136-145)
== END 2023-06-21 04:06 | disposition home or self-care (01) ==
PROVIDERS: Emergency Provider Emergency Medicine; PCP Family Medicine; Visit Provider Emergency Medicine
DX: R10.9 Unspecified abdominal pain (principal); I69.354 Hemiplegia and hemiparesis following cerebral infarction affecting left non-dominant side; E11.65 Type 2 diabetes mellitus with hyperglycemia; E11.40 Type 2 diabetes mellitus with diabetic neuropathy, unspecified; R19.7 Diarrhea, unspecified; R11.2 Nausea with vomiting, unspecified; F17.200 Nicotine dependence, unspecified, uncomplicated; Z79.82 Long term (current) use of aspirin; Z79.01 Long term (current) use of anticoagulants
CPT/HCPCS: 80053; 83690; 85025; 96361; 96374; 99283; J2405

== ENCOUNTER 2023-06-30 00:02 | Emergency (ER) | payer MEDICAID, SELFPAY ==
[2023-06-30 00:03] VITALS: BP 149/85; PULSE 61; RESP 18; TEMP 36.7; O2SAT 100; BMI 24.4
--- NOTE | 2023-06-30 03:01 | ED.RN ---
Pt was no longer in her room,found gown on the bed and monitor wires off. Iv was found in the trash. Attempt to call pt to make sure that it was her IV and pt did not answer.
== END 2023-06-30 03:13 | disposition left against medical advice (07) ==
PROVIDERS: PCP Family Medicine
DX: Z53.21 Procedure and treatment not carried out due to patient leaving prior to being seen by health care provider (principal)
CPT/HCPCS: 99282; A4216

== ENCOUNTER 2023-08-30 15:40 | Emergency (ER) | payer MEDICAID, SELFPAY ==
[2023-08-30 15:41] VITALS: BP 132/94; PULSE 94; RESP 16; TEMP 35.7; O2SAT 98; BMI 29.4
--- OUTSIDE RECORDS SUMMARY | 2023-08-30 17:10 | XMS RPT_ITS | CCD ---
Author Name Unknown Address [address] [place] [address] Organization [facility] Care Team Providers Care Pulp Press Tender Name Role Phone OZIEL MILLER Admitting Unavailab OZIEL Rayo Attending Unavailab Ran Rush MD Primary Care Provider [phone] Ran Murphy MD Primary Care Provider Maricarmen Yap CNP Unavailable Ran Murphy MD Primary Care Provider SERENA RAUSCH Attending Unavailable BOGDAN SOTO Referring Unavailab RAN Rush Primary Care Unavailable SERENA RAUSCH Attending Unavailable BOGDAN SOTO Referring Unavailab RAN Rush Primary Care Unavailable FLORIDALMA DUPONT Admitting Unavailable FLORIDALMA DUPONT Attending Unavailable RAN MURPHY Primary Care Unavailable SERENA RAUSCH Attending Unavailable BOGDAN SOTOA [place] Referring Unavailab RAN Rush Primary Care Unavailable Ran Murphy MD Primary Care Provider Ran Murphy MD Primary Care Provider LEONA CEDILLO Referring Unavailable RAN MURPHY Primary Care Unavailable MOHAN GREGORY Attending Unavailable SHERRY MARRERO Referring Unavailable RAN MURPHY Primary Care Unavailable MARICARMEN YAP Attending Unavailable RAN MURPHY Primary Care Unavailable OZIEL CHANDLER Referring Unavailable RAN MURPHY Primary Care Unavailable RAN MURPHY Primary Care Unavailable RAN MURPHY Primary Care Unavailable LEONA CEDILLO Attending Unavailable JEFFREY, RAN A Primary Care Unavailable FRACISCO, MARICARMEN Attending Unavailable JEFFREY, RAN A Primary Care Unavailable SHERRY MARRERO Attending Unavailable JEFFREY, RAN A Primary Care Unavailable JEFFREY, RAN A Referring Unavailable JEFFREY, RAN A Primary Care Unavailable JEFFREY, RAN A Attending Unavailable RK HUGHES Attending Unavailable JEFFREY, RAN A Primary Care Unavailable JEFFREY, RAN A Referring Unavailable NURIA ROY Attending Unavailable JEFFREY, RAN A Primary Care Unavailable CEDILLO, LEONA Referring Unavailable JEFFREY, RAN A Primary Care Unavailable CEDILLO, LEONA Referring Unavailable JEFFREY, RAN A Primary Care Unavailable JEFFREY, RAN A Primary Care Unavailable OZIEL CHANDLER Attending Unavailable JEFFREY, RAN A Primary Care Unavailable JEFFREY, RAN A Primary Care Unavailable YULISA CARRILLO Attending Unavailab le MARICARMEN YAP Attending Unavailable JEFFREY, RAN A Primary Care Unavailable RK HUGHES Referring Unavailable VANCE SHI Attending Unava ilable JEFFREY, RAN A Primary Care Unavailable JEFFREY, RAN A Primary Care Unavailable OZIEL CHANDLER Attending Unavailable JEFFREY, RAN A Primary Care Unavailable KNOZIEL GONZALEZ Attending Unavailable JEFFREY, RAN A Primary Care Unavailable FRACISCO, MARICARMEN Attending Unavailable JEFFREY, RAN A Primary Care Unavailable KNOZIEL GONZALEZ Referring Unavailable JEFFREY, RAN A Primary Care Unavailable SHERRY MARRERO Referring Unavailable JEFFREY, RAN A Primary Care Unavailable JEFFREY, RAN A Attending Unavailable Allergies Allergy Classification Reported Allergen(s) Allergy Type Date of Onset Reaction(s) Facility (20 sources) ARIPiprazole; Translations: [ARIPIPRAZOLE] Drug Allergy 1 Other: See Comments, Anxiety [facility] Work Phone: (20 sources) Azithromycin; Translations: [AZITHROMYCIN] Drug Allergy 5 Rash, Diarrhea, GI Upset [facility] Work Phone: (20 sources) buPROPion; Translations: [BUPROPION HCL] Drug Allergy 7 Intolerance [facility] Work Phone: (20 sources) cyclobenzaprine ; Translations: [CYCLOBENZAPRIN E] Drug Allergy 2 Other: See Comments [facility] Work Phone: (20 sources) Erythromycin; Translations: [ERYTHROMYCIN] Drug Allergy 5 Other: See Comments [facility] Work Phone: (20 sources) LORazepam; Translations: [LORAZEPAM] Drug Allergy 7 Mental Status Change, Aggressive Behavior [facility] Work Phone: (20 sources) metFORMIN; Translations: [METFORMIN HCL] Drug Allergy 6 Other: See Comments [facility] Work Phone: (20 sources) metFORMIN; Translations: [METFORMIN] Drug Allergy 5 Other: See Comments, Diarrhea, Abdominal Discomfort [facility] Work Phone: (13 sources) Penicillins; Translations: [PENICILLINS] Drug Allergy 8 Rash [facility] Work Phone: (20 sources) Sulfamethoxazol e; Translations: [SULFAMETHOXAZO LE] Drug Allergy 1 Hives [facility] Work Phone: (20 sources) traZODone; Translations: [TRAZODONE] Drug Allergy 5 Intolerance, Anxiety [facility] Work Phone: (20 sources) zolpidem; Translations: [ZOLPIDEM] Drug Allergy 7 Intolerance, Anxiety [facility] Work Phone: (20 sources) eggs [Other] Propensity to adverse reactions 5 Unknown [facility] Work Phone: (20 sources) gabapentin; Translations: [GABAPENTIN] Drug [facility] (1 source) buPROPion Drug Allergy 7 Aggressive Behavior [facility] (1 source) Egg yolk Propensity to adverse reactions to drug 5 Rash [facility] (20 sources) Penicillins Drug Allergy 8 Rash [facility] Work Phone: (20 sources) Doxycycline; Translations: [DOXYCYCLINE] Drug Allergy 2 Unknown [facility] (2 sources) OTHER; Translations: [OTHER] Propensity to adverse reactions (disorder) 5 [facility] Other [facility] (2 sources) egg extract; Translations: [EGG] Drug Allergy 3 Unknown [facility] Work Phone: Medications Current Medications Medication Drug Class(es) Dates Sig (Normalized) Sig (Original) acetaminophen 325 mg oral tablet (2 sources) Start: 01-13-2022 acetaminophen (TYLENOL) tablet 650 mg Completed/Discontinued Medications Medication Drug Class(es) Dates Sig (Normalized) Sig (Original) albuterol 0.83 mg/ml inhalation solution (20 sources) beta2-Adrenergic Agonist Start: 02-09-2023 take 2.5 mg by inhalation every four hours as needed albuterol (PROVENTIL) 2.5 mg /3 mL (0.083 %) nebulizer solution Use 3 mL via nebulizer every 4 hours as needed for wheezing/shortnes s of breath. Use over 5-15minutes. 90 mL 1 02/09/2023 Active Problems Active Problems Problem Classification Problem Date Documented Da te Episodic/Chronic Abdominal hernia (10 sources) Hernia of anterior abdominal wall; Translations: [Ventral hernia without obstruction or gangrene] Onset: 3 06-05-2023 Episodic Acute cerebrovascular disease (3 sources) Cerebrovascular accident; Translations: [Cerebral infarction, unspecified] Onset: 0 07-18-2020 Chronic Alcohol-related disorders (20 sources) Alcoholism; Translations: [Alcohol dependence, uncomplicated] Onset: 8 Chronic Anxiety disorders (20 sources) Generalized anxiety disorder; Translations: [Generalized anxiety disorder] Onset: 6 Chronic Asthma (20 sources) Mild intermittent asthma; Translations: [Mild intermittent asthma, uncomplicated] Onset: 5 Chronic Blindness and vision defects (4 sources) Bilateral myopia of eyes; Translations: [Myopia, bilateral] Episodic Coagulation and hemorrhagic disorders (1 source) Platelet count below reference range; Translations: [Thrombocytopenia, unspecified] Chronic Conditions associated with dizziness or vertigo (2 sources) Vertigo; Translations: [Dizziness and giddiness] Episodic Diabetes mellitus with complications (20 sources) Type 2 diabetes mellitus; Translations: [Type 2 diabetes mellitus with mild nonproliferative diabetic retinopathy with macular edema, bilateral] Onset: 6 Chronic Diabetes mellitus without complication (2 sources) Diabetes mellitus; Translations: [Type 2 diabetes mellitus without complications] Onset: 0 11-16-2020 Chronic Diabetes mellitus without complication (1 source) Glycosuria; Translations: [Glycosuria] 07-14-2023 Episodic Disorders of lipid metabolism (20 sources) Dyslipidemia; Translations: [Hyperlipidemia, unspecified] Onset: 4 Chronic Esophageal disorders (20 sources) Gastroesophageal reflux disease without esophagitis; Translations: [Gastro-esophageal reflux disease without esophagitis] Onset: 6 Chronic Essential hypertension (1 source) Essential (primary) hypertension; Translations: [Hypertension, essential] Onset: 4 Chronic Headache; including migraine (20 sources) Migraine with aura; Translations: [Migraine with aura, not intractable, without status migrainosus] Onset: 7 Chronic Immunizations and screening for infectious disease (20 sources) Mantoux: positive; Translations: [Nonspecific reaction to tuberculin skin test without active tuberculosis] Onset: 9 01-18-2019 Episodic Intestinal infection (1 source) Viral gastroenteritis; Translations: [Viral intestinal infection, unspecified] Episodic Late effects of cerebrovascular disease (1 source) 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; Translations: [Dysarthria following cerebral infarction] Onset: 1 11-16-2020 Chronic Miscellaneous mental health disorders (2 sources) Other specified mental disorders due to known physiological condition; Translations: [Other specified mental disorders due to known physiological condition] Onset: 1 Chronic Mood disorders (20 sources) Recurrent major depression; Translations: [Major depressive disorder, recurrent, unspecified] Onset: 5 Chronic Mycoses (1 source) Candidiasis of vagina; Translations: [Vaginal yeast infection] Episodic Nonmalignant breast conditions (20 sources) Fibrocystic disease of breast; Translations: [Diffuse cystic mastopathy of unspecified breast] Onset: 5 12-19-2013 Chronic Nutritional deficiencies (20 sources) Vitamin D deficiency; Translations: [Vitamin D deficiency, unspecified] Onset: 1 Chronic Occlusion or stenosis of precerebral arteries (20 sources) Carotid artery stenosis; Translations: [Occlusion and stenosis of unspecified carotid artery] Onset: 0 Chronic Other and ill-defined cerebrovascular disease (20 sources) Moyamoya disease; 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] Onset: 0 Chronic Other and ill-defined cerebrovascular disease (2 sources) Moyamoya disease; 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] Onset: 1 Chronic Other eye disorders (1 source) Meibomian gland dysfunction of bilateral eyes; Translations: [Meibomian gland dysfunction right eye, upper and lower eyelids] Episodic Other eye disorders (1 source) Bilateral subconjunctival hemorrhage; Translations: [Conjunctival hemorrhage, bilateral] Episodic Other female genital disorders (3 sources) Vaginal odor; Translations: [Other specified noninflammatory disorders of vagina] Episodic Other female genital disorders (4 sources) Vaginal discharge; Translations: [Other specified noninflammatory disorders of vagina] Episodic Other female genital disorders (2 sources) Pruritus of vagina; Translations: [Other specified noninflammatory disorders of vagina] Episodic Other female genital disorders (1 source) Vaginal irritation; Translations: [Other specified noninflammatory disorders of vagina] Episodic Other gastrointestinal disorders (2 sources) Diarrhea; Translations: [Diarrhea, unspecified] Episodic Other lower respiratory disease (1 source) Cough; Translations: [Acute cough] Episodic Other lower respiratory disease (1 source) H/O: asthma; Translations: [Personal history of other diseases of the respiratory system] Episodic Other nervous system disorders (1 source) Expressive dysphasia; Translations: [Aphasia] Onset: 1 11-16-2020 Chronic Other screening for suspected conditions (not mental disorders or infectious disease) (1 source) Encounter for screening for malignant neoplasm of respiratory organs; Translations: [Encounter for screening for lung cancer] Onset: 4 Episodic Other skin disorders (1 source) Foot callus; Translations: [Corns and callosities] Episodic Other upper respiratory disease (20 sources) Allergic rhinitis; Translations: [Allergic rhinitis, unspecified] Onset: 7 Chronic Other upper respiratory disease (1 source) Pain in throat; Translations: [Pain in throat] Episodic Other upper respiratory infections (4 sources) Acute upper respiratory infection; Translations: [Acute upper respiratory infection, unspecified] Episodic Otitis media and related conditions (1 source) Acute left otitis media; Translations: [Otitis media, unspecified, left ear] Episodic Peripheral and visceral atherosclerosis (20 sources) Peripheral vascular disease, unspecified; Translations: [Peripheral vascular disease, unspecified] Onset: 1 Chronic Spondylosis; intervertebral disc disorders; other back problems (1 source) Acute back pain with sciatica; Translations: [Lumbago with sciatica, left side] Episodic Substance-related disorders (20 sources) Smoker; Translations: [Nicotine dependence, unspecified, uncomplicated] Onset: 5 Chronic Unclassified (1 source) APPOINTMENT CANCELLED Unclassified (1 source) Yeast infection of the vagina; Translations: [Yeast infection of the vagina] Onset: 4 Urinary tract infections (4 sources) Acute cystitis; Translations: [Acute cystitis without hematuria] Episodic Viral infection (1 source) Viral disease; Translations: [Viral infection, unspecified] Episodic Past or Other Problems Problem Classification Problem Date Documented Da te Episodic/Chronic Genitourinary symptoms and ill-defined conditions (20 sources) Sign or symptom of the urinary system; Translations: [Other symptoms involving urinary system] Onset: 06-16-2006 12-19-2013 Episodic Malaise and fatigue (20 sources) Left hemiparesis; Translations: [Weakness] Onset: 01-23-2017 01-23-2017 Episodic Other aftercare (20 sources) Patient encounter status; Translations: [Other salvage determiner (current) drug therapy] Onset: 10-26-2020 10-26-2020 Episodic Other aftercare (1 source) Other jail (current) drug therapy; Translations: [Medication management] Onset: 10-26-2020 Episodic Other circulatory disease (20 sources) History of cerebrovascular accident; Translations: [Personal history of transient ischemic attack (TIA), and cerebral infarction without residual deficits] Onset: 09-06-2013 Episodic Other circulatory disease (1 source) Personal history of transient ischemic attack (TIA), and cerebral infarction without residual deficits; Translations: [H/O: CVA (cerebrovascular accident)] Onset: 07-03-2015 Episodic Other connective tissue disease (20 sources) Trochanteric bursitis; Translations: [Trochanteric bursitis, right hip] Onset: 04-10-2018 09-17-2018 Episodic Other connective tissue disease (20 sources) Pain in bilateral legs; Translations: [Pain in right leg] Onset: 09-17-2018 01-18-2019 Episodic Other connective tissue disease (1 source) Neurological symptom; Translations: [Unspecified symptoms and signs involving the nervous system] Onset: 07-18-2020 11-16-2020 Episodic Other female genital disorders (4 sources) Other specified noninflammatory disorders of vagina; Translations: [Vaginal irritation] Onset: 10-25-2022 Episodic Other gastrointestinal disorders (20 sources) History of pancreatitis; Translations: [Personal history of other diseases of the digestive system] Onset: 05-25-2005 01-23-2017 Episodic Other gastrointestinal disorders (20 sources) Dysphagia; Translations: [Other dysphagia] Onset: 10-09-2020 10-15-2020 Episodic Other nervous system disorders (20 sources) Impairment of balance; Translations: [Other abnormalities of gait and mobility] Onset: 01-23-2017 01-18-2019 Episodic Other nervous system disorders (20 sources) Slurred speech; Translations: [Slurred speech] Onset: 01-23-2017 01-03-2018 Episodic Other nervous system disorders (20 sources) Dysarthria; Translations: [Dysarthria and anarthria] Onset: 10-26-2020 10-26-2020 Episodic Other nervous system disorders (1 source) Other abnormalities of gait and mobility; Translations: [Balance problems] Onset: 01-18-2019 Episodic Residual codes; unclassified (1 source) Tobacco user; Translations: [Tobacco use] Onset: 10-15-2020 11-16-2020 Episodic Unclassified (1 source) Onset: 01-13-2022 01-13-2022 Results Test Name Value Interpretation Reference Range Facil ity Vital Signs Date Time Vital Sign Value Performing Clinician Tanner castanon 07-14-2023 18:18-0500 Body temperature 97 [degF] Yadi Pierce APRN.CNP Work Phone: [facility] 07-14-2023 18:18-0500 Body weight 72.48 kg Yadi Pierce APRN.CNP Work Phone: [facility] 07-14-2023 18:18-0500 Diastolic blood pressure 76 mm[Hg] Yadi Pierce APRN.EYE PHYSICIAN Work Phone: [facility] 07-14-2023 18:18-0500 Heart rate 78 /min Yadi Pierce APRN.EYE PHYSICIAN Work Phone: [facility] 07-14-2023 18:18-0500 Respiratory rate 16 /min Yadi Pierce APRN.EYE PHYSICIAN Work Phone: [facility] 07-14-2023 18:18-0500 SaO2% (BldA) [Mass fraction] 99 % Yadi Pierce APRN.EYE PHYSICIAN Work Phone: [facility] 07-14-2023 18:18-0500 Systolic blood pressure 118 mm[Hg] Yadi Pierce APRN.EYE PHYSICIAN Work Phone: [facility] 07-13-2023 10:44-0500 Body height 167.6 cm Vance Shi MD Work Phone: [facility] 07-13-2023 10:44-0500 Body temperature 97 [degF] Vance Shi MD Work Phone: [facility] 07-13-2023 10:44-0500 Body weight 68.49 kg Vance Shi MD Work Phone: [facility] 07-13-2023 10:44-0500 Diastolic blood pressure 89 mm[Hg] Vance Shi MD Work Phone: [facility] 07-13-2023 10:44-0500 Heart rate 78 /min Vance Shi MD Work Phone: [facility] 07-13-2023 10:44-0500 Systolic blood pressure 149 mm[Hg] Vance Shi MD Work Phone: [facility] 06-20-2023 10:36-0500 Body weight 70.67 kg Yulisa Carrillo MD Work Phone: [facility] 06-20-2023 10:36-0500 Diastolic blood pressure 74 mm[Hg] Yulisa Carrillo MD Work Phone: [facility] 06-20-2023 10:36-0500 Heart rate 91 /min Yulisa Carrillo MD Work Phone: [facility] 06-20-2023 10:36-0500 Respiratory rate 16 /min Yulisa Carrillo MD Work Phone: [facility] 06-20-2023 10:36-0500 SaO2% (BldA) [Mass fraction] 97 % Yulisa Carrillo MD Work Phone: [facility] 06-20-2023 10:36-0500 Systolic blood pressure 112 mm[Hg] Yulisa Carrillo MD Work Phone: [facility] 06-06-2023 14:52-0400 Body height 167.6 cm Rk Hughes MD Work Phone: [facility] 06-06-2023 14:52-0400 Body temperature 97.81 [degF] Rk Hughes MD Work Phone: [facility] 06-06-2023 14:52-0400 Body weight 70.13 kg Rk Hughes MD Work Phone: [facility] 06-06-2023 14:52-0400 Diastolic blood pressure 82 mm[Hg] Rk Hughes MD Work Phone: [facility] 06-06-2023 14:52-0400 Heart rate 98 /min Rk Hughes MD Work Phone: [facility] 06-06-2023 14:52-0400 SaO2% (BldA) [Mass fraction] 99 % Rk Hughes MD Work Phone: [facility] 06-06-2023 14:52-0400 Systolic blood pressure 134 mm[Hg] Rk Hughes MD Work Phone: [facility] 06-05-2023 17:42-0400 Body weight 70.31 kg Ran Murphy MD Work Phone: [facility] 10-23-2023 17:42-0400 Diastolic blood pressure 94 mm[Hg] Ran Murphy MD Work Phone: [facility] 06-05-2023 17:42-0400 Heart rate 76 /min Ran Murphy MD Work Phone: [facility] 06-05-2023 17:42-0400 Respiratory rate 16 /min Ran Murphy MD Work Phone: [facility] 06-05-2023 17:42-0400 Systolic blood pressure 140 mm[Hg] Ran Murphy MD Work Phone: [facility] 05-05-2023 13:25-0400 Body weight 68.49 kg Oziel Chandler FORGING PRESS SETTER UP.EYE PHYSICIAN Work Phone: [facility] 05-05-2023 13:25-0400 Diastolic blood pressure 82 mm[Hg] Oziel Chandler FORGING PRESS SETTER UP.EYE PHYSICIAN Work Phone: [facility] 05-05-2023 13:25-0400 Heart rate 82 /min Oziel Chandler FORGING PRESS SETTER UP.EYE PHYSICIAN Work Phone: [facility] 05-05-2023 13:25-0400 Respiratory rate 16 /min Oziel Chandler FORGING PRESS SETTER UP.EYE PHYSICIAN Work Phone: [facility] 05-05-2023 13:25-0400 Systolic blood pressure 130 mm[Hg] Oziel Chandler FORGING PRESS SETTER UP.EYE PHYSICIAN Work Phone: [facility] 04-29-2023 14:40-0400 Body temperature 97.9 [degF] Attila Levin MD Work Phone: [facility] 04-29-2023 14:40-0400 Body weight 68.95 kg Attila Levin MD Work Phone: [facility] 04-29-2023 14:40-0400 Diastolic blood pressure 90 mm[Hg] Attila Levin MD Work Phone: [facility] 04-29-2023 14:40-0400 Heart rate 82 /min Attila Levin MD Work Phone: [facility] 04-29-2023 14:40-0400 Respiratory rate 16 /min Attila Levin MD Work Phone: [facility] 04-29-2023 14:40-0400 SaO2% (BldA) [Mass fraction] 99 % Attila Levin MD Work Phone: [facility] 04-29-2023 14:40-0400 Systolic blood pressure 138 mm[Hg] Attila Levin MD Work Phone: [facility] 04-12-2023 16:05-0400 Body temperature 97.3 [degF] Yadi Pierce APRN.EYE PHYSICIAN Work Phone: [facility] 04-12-2023 16:05-0400 Body weight 68.77 kg Yadi Pierce APRN.EYE PHYSICIAN Work Phone: [facility] 04-12-2023 16:05-0400 Diastolic blood pressure 80 mm[Hg] Yadi Pierce APRN.EYE PHYSICIAN Work Phone: [facility] 04-12-2023 16:05-0400 Heart rate 96 /min Yadi Pierce APRN.EYE PHYSICIAN Work Phone: [facility] 04-12-2023 16:05-0400 Respiratory rate 16 /min Yadi Pierce APRN.EYE PHYSICIAN Work Phone: [facility] 04-12-2023 16:05-0400 SaO2% (BldA) [Mass fraction] 98 % Yadi Pierce APRN.EYE PHYSICIAN Work Phone: [facility] 04-12-2023 16:05-0400 Systolic blood pressure 120 mm[Hg] Yadi Pierce APRN.EYE PHYSICIAN Work Phone: [facility] 12-08-2022 11:24-0400 Body weight 70.31 kg Oziel Chandler APRN.EYE PHYSICIAN Work Phone: [facility] 12-08-2022 11:24-0400 Diastolic blood pressure 80 mm[Hg] Oziel Chandler APRN.EYE PHYSICIAN Work Phone: [facility] 12-08-2022 11:24-0400 Heart rate 76 /min Oziel Chandler FORGING PRESS SETTER UP.EYE PHYSICIAN Work Phone: [facility] 12-08-2022 11:24-0400 Respiratory rate 16 /min Oziel Chandler FORGING PRESS SETTER UP.EYE PHYSICIAN Work Phone: [facility] 12-08-2022 11:24-0400 SaO2% (BldA) [Mass fraction] 98 % Oziel Chandler FORGING PRESS SETTER UP.EYE PHYSICIAN Work Phone: [facility] 12-08-2022 11:24-0400 Systolic blood pressure 110 mm[Hg] Oziel Chandler FORGING PRESS SETTER UP.EYE PHYSICIAN Work Phone: [facility] 12-01-2022 14:58-0400 Body weight 68.4 kg Maricarmen Witten FORGING PRESS SETTER UP.EYE PHYSICIAN Work Phone: [facility] 12-01-2022 14:58-0400 Diastolic blood pressure 72 mm[Hg] Maricarmen Fracisco FORGING PRESS SETTER UP.EYE PHYSICIAN Work Phone: [facility] 12-01-2022 14:58-0400 Systolic blood pressure 106 mm[Hg] Maricarmen Witten FORGING PRESS SETTER UP.EYE PHYSICIAN Work Phone: [facility] 11-07-2022 13:33-0400 Body height 167.6 cm Mohan Gregory MD Work Phone: [facility] 11-07-2022 13:33-0400 Body weight 67.59 kg Mohan Gregory MD Work Phone: [facility] 11-07-2022 13:33-0400 Diastolic blood pressure 82 mm[Hg] Mohan Gregory MD Work Phone: [facility] 11-07-2022 13:33-0400 Systolic blood pressure 140 mm[Hg] Mohan Gregory MD Work Phone: [facility] 10-25-2022 15:39-0400 Body weight 70.03 kg Maricarmen Fracisco FORGING PRESS SETTER UP.EYE PHYSICIAN Work Phone: [facility] 10-25-2022 15:39-0400 Diastolic blood pressure 84 mm[Hg] Maricarmen Fracisco FORGING PRESS SETTER UP.EYE PHYSICIAN Work Phone: [facility] 10-25-2022 15:39-0400 Systolic blood pressure 140 mm[Hg] Maricarmen Fracisco FORGING PRESS SETTER UP.EYE PHYSICIAN Work Phone: [facility] 10-07-2022 14:17-0500 Body height 165.1 cm Leona Cedillo PA-C Work Phone: [facility] 10-07-2022 14:17-0500 Body temperature 97.5 [degF] Leona Cedillo PA-C Work Phone: [facility] 10-07-2022 14:17-0500 Body weight 68.04 kg Leona Cedillo PA-C Work Phone: [facility] 10-07-2022 14:17-0500 Diastolic blood pressure 80 mm[Hg] Leona Cedillo PA-C Work Phone: [facility] 10-07-2022 14:17-0500 Heart rate 99 /min Leona Cedillo PA-C Work Phone: [facility] 10-07-2022 14:17-0500 Respiratory rate 16 /min Leona Cedillo PA-C Work Phone: [facility] 10-07-2022 14:17-0500 SaO2% (BldA) [Mass fraction] 97 % Leona Cedillo PA-C Work Phone: [facility] 10-07-2022 14:17-0500 Systolic blood pressure 140 mm[Hg] Leona Cedillo PA-C Work Phone: [facility] 10-03-2022 14:37-0500 Body weight 67.86 kg Maricarmen Fracisco FORGING PRESS SETTER UP.EYE PHYSICIAN Work Phone: [facility] 10-03-2022 14:37-0500 Diastolic blood pressure 80 mm[Hg] Maricarmen Witten FORGING PRESS SETTER UP.EYE PHYSICIAN Work Phone: [facility] 10-03-2022 14:37-0500 Systolic blood pressure 134 mm[Hg] Maricarmen Witten FORGING PRESS SETTER UP.EYE PHYSICIAN Work Phone: [facility] 09-06-2022 15:01-0500 Body temperature 98.91 [degF] Floyd King FORGING PRESS SETTER UP.EYE PHYSICIAN Work Phone: [facility] 09-06-2022 15:01-0500 Body weight 67.59 kg Floyd Woods FORGING PRESS SETTER UP.EYE PHYSICIAN Work Phone: [facility] 09-06-2022 15:01-0500 Diastolic blood pressure 82 mm[Hg] Floyd Chuck FORGING PRESS SETTER UP.EYE PHYSICIAN Work Phone: [facility] 09-06-2022 15:01-0500 Heart rate 86 /min Floyd Chuck FORGING PRESS SETTER UP.EYE PHYSICIAN Work Phone: [facility] 09-06-2022 15:01-0500 Respiratory rate 16 /min Floyd Chuck FORGING PRESS SETTER UP.EYE PHYSICIAN Work Phone: [facility] 09-06-2022 15:01-0500 SaO2% (BldA) [Mass fraction] 97 % Floyd Chuck FORGING PRESS SETTER UP.EYE PHYSICIAN Work Phone: [facility] 09-06-2022 15:01-0500 Systolic blood pressure 138 mm[Hg] Floyd Woods FORGING PRESS SETTER UP.EYE PHYSICIAN Work Phone: [facility] 08-26-2022 13:27-0500 Body height 165.1 cm Leona Cedillo PA-C Work Phone: [facility] 08-26-2022 13:27-0500 Body temperature 96.91 [degF] Leona Cedillo PA-C Work Phone: [facility] 08-26-2022 13:27-0500 Body weight 67.13 kg Leona Cedillo PA-C Work Phone: [facility] 08-26-2022 13:27-0500 Diastolic blood pressure 84 mm[Hg] Leona Cedillo PA-C Work Phone: [facility] 08-26-2022 13:27-0500 Heart rate 108 /min Leona Cedillo PA-C Work Phone: [facility] 08-26-2022 13:27-0500 Respiratory rate 12 /min Leona Cedillo PA-C Work Phone: [facility] 08-26-2022 13:27-0500 SaO2% (BldA) [Mass fraction] 97 % Leona Cedillo PA-C Work Phone: [facility] 08-26-2022 13:27-0500 Systolic blood pressure 124 mm[Hg] Leona Cedillo PA-C Work Phone: [facility] 08-18-2022 13:32-0500 Body temperature 98.4 [degF] Anabella Gore FORGING PRESS SETTER UP.EYE PHYSICIAN Work Phone: [facility] 08-18-2022 13:32-0500 Body weight 66.41 kg Anabella Gore FORGING PRESS SETTER UP.EYE PHYSICIAN Work Phone: [facility] 08-18-2022 13:32-0500 Diastolic blood pressure 88 mm[Hg] Anabella Gore FORGING PRESS SETTER UP.EYE PHYSICIAN Work Phone: [facility] 08-18-2022 13:32-0500 Heart rate 86 /min Anabella Gore FORGING PRESS SETTER UP.EYE PHYSICIAN Work Phone: [facility] 08-18-2022 13:32-0500 Respiratory rate 16 /min Anabella Gore FORGING PRESS SETTER UP.EYE PHYSICIAN Work Phone: [facility] 08-18-2022 13:32-0500 SaO2% (BldA) [Mass fraction] 100 % Anabella Gore FORGING PRESS SETTER UP.EYE PHYSICIAN Work Phone: [facility] 08-18-2022 13:32-0500 Systolic blood pressure 126 mm[Hg] Anabella Gore FORGING PRESS SETTER UP.EYE PHYSICIAN Work Phone: [facility] 08-03-2022 13:08-0500 Body temperature 98.01 [degF] Ran Murphy MD Work Phone: [facility] 08-03-2022 13:08-0500 Body weight 67.59 kg Ran Murphy MD Work Phone: [facility] 08-03-2022 13:08-0500 Diastolic blood pressure 86 mm[Hg] Ran Murphy MD Work Phone: [facility] 08-03-2022 13:08-0500 Heart rate 72 /min Ran Murphy MD Work Phone: [facility] 08-03-2022 13:08-0500 Respiratory rate 14 /min Ran Murphy MD Work Phone: [facility] 08-03-2022 13:08-0500 Systolic blood pressure 148 mm[Hg] Ran Murphy MD Work Phone: [facility] 07-26-2022 17:43-0500 Body temperature 97.3 [degF] Luba Fischerk FORGING PRESS SETTER UP.EYE PHYSICIAN Work Phone: [facility] 07-26-2022 17:43-0500 Body weight 68.95 kg Lubameagan Crocker FORGING PRESS SETTER UP.EYE PHYSICIAN Work Phone: [facility] 07-26-2022 17:43-0500 Diastolic blood pressure 62 mm[Hg] Luba Obi FORGING PRESS SETTER UP.EYE PHYSICIAN Work Phone: [facility] 07-26-2022 17:43-0500 Heart rate 76 /min Luba Obi FORGING PRESS SETTER UP.EYE PHYSICIAN Work Phone: [facility] 07-26-2022 17:43-0500 Respiratory rate 16 /min Luba Obi FORGING PRESS SETTER UP.EYE PHYSICIAN Work Phone: [facility] 07-26-2022 17:43-0500 SaO2% (BldA) [Mass fraction] 99 % Lubameagan Fischerk FORGING PRESS SETTER UP.EYE PHYSICIAN Work Phone: [facility] 07-26-2022 17:43-0500 Systolic blood pressure 106 mm[Hg] Luba Fischerk FORGING PRESS SETTER UP.EYE PHYSICIAN Work Phone: [facility] 06-21-2022 18:51-0500 Body temperature 97.5 [degF] Anabella Gore FORGING PRESS SETTER UP.EYE PHYSICIAN Work Phone: [facility] 06-21-2022 18:51-0500 Body weight 67.22 kg Anabella Gore FORGING PRESS SETTER UP.EYE PHYSICIAN Work Phone: [facility] 06-21-2022 18:51-0500 Diastolic blood pressure 80 mm[Hg] Anabella Gore FORGING PRESS SETTER UP.EYE PHYSICIAN Work Phone: [facility] 06-21-2022 18:51-0500 Heart rate 79 /min Anabella Gore FORGING PRESS SETTER UP.EYE PHYSICIAN Work Phone: [facility] 06-21-2022 18:51-0500 Respiratory rate 18 /min Anabella Gore FORGING PRESS SETTER UP.EYE PHYSICIAN Work Phone: [facility] 06-21-2022 18:51-0500 SaO2% (BldA) [Mass fraction] 99 % Anabella Gore FORGING PRESS SETTER UP.EYE PHYSICIAN Work Phone: [facility] 06-21-2022 18:51-0500 Systolic blood pressure 142 mm[Hg] Anabella Gore FORGING PRESS SETTER UP.EYE PHYSICIAN Work Phone: [facility] 06-06-2022 15:27-0400 Body weight 65.32 kg Ran Murphy MD Work Phone: [facility] 06-06-2022 15:27-0400 Diastolic blood pressure 88 mm[Hg] Ran Murphy MD Work Phone: [facility] 06-06-2022 15:27-0400 Heart rate 84 /min Ran Murphy MD Work Phone: [facility] 06-06-2022 15:27-0400 Respiratory rate 16 /min Ran Murphy MD Work Phone: [facility] 06-06-2022 15:27-0400 Systolic blood pressure 120 mm[Hg] Ran Murphy MD Work Phone: [facility] 06-02-2022 14:15-0400 Body height 163.8 cm Ulises Osorio MD Work Phone: [facility] 06-02-2022 14:15-0400 Body weight 65.32 kg Ulises Osorio MD Work Phone: [facility] 06-02-2022 14:15-0400 Diastolic blood pressure 80 mm[Hg] Ulises Osorio MD Work Phone: [facility] 06-02-2022 14:15-0400 Heart rate 81 /min Ulises Osorio MD Work Phone: [facility] 06-02-2022 14:15-0400 SaO2% (BldA) [Mass fraction] 98 % Ulises Osorio MD Work Phone: [facility] 06-02-2022 14:15-0400 Systolic blood pressure 120 mm[Hg] Ulises Osorio MD Work Phone: [facility] 05-16-2022 15:44-0400 Body height 163.8 cm Ran Murphy MD Work Phone: [facility] 05-16-2022 15:44-0400 Body weight 64.86 kg Ran Murphy MD Work Phone: [facility] 05-16-2022 15:44-0400 Diastolic blood pressure 78 mm[Hg] Ran Murphy MD Work Phone: [facility] 05-16-2022 15:44-0400 Heart rate 78 /min Ran Murphy MD Work Phone: [facility] 05-16-2022 15:44-0400 Respiratory rate 18 /min Ran Murphy MD Work Phone: [facility] 05-16-2022 15:44-0400 Systolic blood pressure 138 mm[Hg] Ran Murphy MD Work Phone: [facility] 03-24-2022 14:57-0400 Body weight 64.95 kg Maricarmen Fracisco FORGING PRESS SETTER UP.EYE PHYSICIAN Work Phone: [facility] 03-24-2022 14:57-0400 Diastolic blood pressure 60 mm[Hg] Maricarmen Witten FORGING PRESS SETTER UP.EYE PHYSICIAN Work Phone: [facility] 03-24-2022 14:57-0400 Systolic blood pressure 90 mm[Hg] Maricarmen Witten FORGING PRESS SETTER UP.EYE PHYSICIAN Work Phone: [facility] 03-01-2022 13:20-0400 Body weight 62.14 kg Sherry Marrero PA-C Work Phone: [facility] 03-01-2022 13:20-0400 Diastolic blood pressure 76 mm[Hg] Sherry Marrero PA-C Work Phone: [facility] 03-01-2022 13:20-0400 Heart rate 82 /min Sherry Marrero PA-C Work Phone: [facility] 03-01-2022 13:20-0400 Respiratory rate 14 /min Sherry Marrero PA-C Work Phone: [facility] 03-01-2022 13:20-0400 Systolic blood pressure 104 mm[Hg] Sherry Marrero PA-C Work Phone: [facility] 02-10-2022 14:35-0400 Body temperature 98.91 [degF] Yadi Pierce APRN.EYE PHYSICIAN Work Phone: [facility] 02-10-2022 14:35-0400 Body weight 64.95 kg Yadi Pierce APRN.EYE PHYSICIAN Work Phone: [facility] 02-10-2022 14:35-0400 Diastolic blood pressure 82 mm[Hg] Yadi Pierce APRN.EYE PHYSICIAN Work Phone: [facility] 02-10-2022 14:35-0400 Heart rate 80 /min Yadi Pierce APRN.EYE PHYSICIAN Work Phone: [facility] 02-10-2022 14:35-0400 Respiratory rate 18 /min Yadi Pierce APRN.EYE PHYSICIAN Work Phone: [facility] 02-10-2022 14:35-0400 SaO2% (BldA) [Mass fraction] 98 % Yadi Pierce APRN.EYE PHYSICIAN Work Phone: [facility] 02-10-2022 14:35-0400 Systolic blood pressure 118 mm[Hg] Yadi Pierce APRN.EYE PHYSICIAN Work Phone: [facility] 02-08-2022 16:12-0400 Body weight 64.41 kg Maricarmen Witten FORGING PRESS SETTER UP.EYE PHYSICIAN Work Phone: [facility] 02-08-2022 16:12-0400 Diastolic blood pressure 74 mm[Hg] Maricarmen Witten FORGING PRESS SETTER UP.EYE PHYSICIAN Work Phone: [facility] 02-08-2022 16:12-0400 Systolic blood pressure 114 mm[Hg] Maricarmen Fracisco FORGING PRESS SETTER UP.EYE PHYSICIAN Work Phone: [facility] 01-13-2022 14:35-0400 Body temperature 97.81 [degF] Floridalma Dupont MD, PhD Work Phone: 8(061)151-674888 [address] 01-13-2022 14:35-0400 Diastolic blood pressure 79 mm[Hg] Floridalma Dupont MD, PhD Work Phone: 0(768)856-656992 [place] [address] 01-13-2022 14:35-0400 Heart rate 69 /min Floridalma Dupont MD, PhD Work Phone: 9(319)429-812392 [place] [address] 01-13-2022 14:35-0400 Respiratory rate 18 /min Floridalma Dupont MD, PhD Work Phone: 1(734)945-393392 [place] [address] 01-13-2022 14:35-0400 SaO2% (BldA) [Mass fraction] 99 % Floridalma Dupont MD, PhD Work Phone: 9(471)278-514488 [address] 01-13-2022 14:35-0400 Systolic blood pressure 136 mm[Hg] Floridalma Dupont MD, PhD Work Phone: 7(809)862-276192 [place] [address] 01-13-2022 08:40-0400 Body height 167.6 cm Floridalma Dupont MD, PhD Work Phone: 1(481)645-341188 [address] 01-13-2022 08:40-0400 Body mass index (BMI) [Ratio] 23.08 kg/m2 Floridalma Dupont MD, PhD Work Phone: 9(616)616-403588 [address] 01-13-2022 08:40-0400 Body weight 64.86 kg Floridalma Dupont MD, PhD Work Phone: [facility] 12-28-2021 14:01-0400 Body weight 63.96 kg Maricarmen Witten FORGING PRESS SETTER UP.EYE PHYSICIAN Work Phone: [facility] 12-28-2021 14:01-0400 Diastolic blood pressure 66 mm[Hg] Maricarmen Fracisco FORGING PRESS SETTER UP.EYE PHYSICIAN Work Phone: [facility] 12-28-2021 14:01-0400 Systolic blood pressure 100 mm[Hg] Maricarmen Fracisco FORGING PRESS SETTER UP.EYE PHYSICIAN Work Phone: [facility] 12-16-2021 12:44-0400 Body weight 63.96 kg Maricarmen Fracisco FORGING PRESS SETTER UP.EYE PHYSICIAN Work Phone: [facility] 12-16-2021 12:44-0400 Diastolic blood pressure 74 mm[Hg] Maricarmen Witten FORGING PRESS SETTER UP.EYE PHYSICIAN Work Phone: [facility] 12-16-2021 12:44-0400 Systolic blood pressure 120 mm[Hg] Maricarmen Fracisco FORGING PRESS SETTER UP.EYE PHYSICIAN Work Phone: [facility] 11-12-2021 15:55-0400 Body temperature 97.7 [degF] Yadi Pierce FORGING PRESS SETTER UP.EYE PHYSICIAN Work Phone: [facility] 11-12-2021 15:55-0400 Body weight 63.05 kg Yadi Pierce FORGING PRESS SETTER UP.EYE PHYSICIAN Work Phone: [facility] 11-12-2021 15:55-0400 Diastolic blood pressure 76 mm[Hg] Yadi Stan FORGING PRESS SETTER UP.EYE PHYSICIAN Work Phone: [facility] 11-12-2021 15:55-0400 Heart rate 60 /min Yadi Pierce FORGING PRESS SETTER UP.EYE PHYSICIAN Work Phone: [facility] 11-12-2021 15:55-0400 Respiratory rate 14 /min Yadi Pierce FORGING PRESS SETTER UP.EYE PHYSICIAN Work Phone: [facility] 11-12-2021 15:55-0400 SaO2% (BldA) [Mass fraction] 95 % Yadi Pierce APRN.EYE PHYSICIAN Work Phone: [facility] 11-12-2021 15:55-0400 Systolic blood pressure 124 mm[Hg] Yadi Pierce APRN.EYE PHYSICIAN Work Phone: [facility] 10-29-2021 13:35-0400 Body weight 63.05 kg Ran Murphy MD Work Phone: [facility] 10-29-2021 13:35-0400 Diastolic blood pressure 78 mm[Hg] Ran Murphy MD Work Phone: [facility] 10-29-2021 13:35-0400 Heart rate 76 /min Ran Murphy MD Work Phone: [facility] 10-29-2021 13:35-0400 Respiratory rate 12 /min Ran Murphy MD Work Phone: [facility] 10-29-2021 13:35-0400 Systolic blood pressure 122 mm[Hg] Ran Murphy MD Work Phone: [facility] Encounters Encounter Date Encounter Type Care Provider Facility Start: 08-25-2023 Encounter for genera l adult medical examination without abnormal findings RAN MURPHY [facility] Start: 08-25-2023 End: 08-26-2023 ambulatory SHERRY MARRERO Facility:[facility] Start: 08-22-2023 End: 08-23-2023 ambulatory OZIEL CHANDLER Facility:[facility] Start: 07-14-2023 End: 07-14-2023 ambulatory RAN MURPHY Facility:[facility] Start: 07-14-2023 End: 07-14-2023 Patient encounter procedure Yadi Pierce APRN.EYE PHYSICIAN Work Phone: [facility] Procedures Date Procedure Procedure Detail Performing Clinician Start: 07-14-2023 Gluc bld gluc mntr d ev cleared fda spec home use Yadi Pierce APRN.EYE PHYSICIAN Work Phone: Start: 07-14-2023 Urnls dip stick/tabl et rgnt auto w/o microscopy Ran Hunltey FORGING PRESS SETTER UP.EYE PHYSICIAN Work Phone: Start: 06-05-2023 INFLUENZA VACCINE, A GE 6 MO - 64 YR, QUADRIVALENT (AFLURIA, FLULAVAL, FLUZONE) Ran Murphy MD Work Phone: Start: 04-29-2023 STREP A MOLECULAR (POC) Attila Levin MD Work Phone: Start: 04-12-2023 Gluc bld gluc mntr d ev cleared fda spec home use Yadi Pierce FORGING PRESS SETTER UP.EYE PHYSICIAN Work Phone: Start: 04-12-2023 Urnls dip stick/tabl et rgnt auto w/o microscopy Attila Levin MD Work Phone: Start: 12-08-2022 Urnls dip stick/tabl et rgnt auto w/o microscopy Oziel Chandler FORGING PRESS SETTER UP.EYE PHYSICIAN Work Phone: Start: 12-01-2022 BACTERIAL VAGINOSIS AMPLIFICATION [facility] FORGING PRESS SETTER UP.EYE PHYSICIAN Work Phone: Start: 12-01-2022 Iadna trichomonas va ginalis amplified probe tech [facility] FORGING PRESS SETTER UP.EYE PHYSICIAN Work Phone: Start: 10-07-2022 Urnls dip stick/tabl et rgnt auto w/o microscopy Leona Cedillo PA-C Work Phone: Start: 09-06-2022 STREP A MOLECULAR (POC) Floyd Woods FORGING PRESS SETTER UP.EYE PHYSICIAN Work Phone: Start: 08-26-2022 Culture bacterial quanttative colony count urine Leona Cedillo PA-C Work Phone: Start: 08-26-2022 Cytp slctv cell enha ncement interpj xcpt c/v Leona Cedillo PA-C Work Phone: Start: 08-26-2022 Urnls dip stick/tabl et rgnt auto w/o microscopy Leona Cedillo PA-C Work Phone: Start: 08-18-2022 COVID WITH FLUA+B, ROUTINE Anabella Gore FORGING PRESS SETTER UP.EYE PHYSICIAN Work Phone: Start: 08-18-2022 INFLUENZA A&B MOLECU LAR (POC) [facility] Start: 08-03-2022 Culture bacterial quanttative colony count urine Ran Murphy MD Work Phone: Start: 08-03-2022 Urnls dip stick/tabl et rgnt auto w/o microscopy Ran Murphy MD Work Phone: Start: 07-26-2022 Urnls dip stick/tabl et rgnt auto w/o microscopy Luba Obi FORGING PRESS SETTER UP.EYE PHYSICIAN Work Phone: Start: 06-21-2022 COVID WITH FLUA+B, ROUTINE Anabella Gore FORGING PRESS SETTER UP.EYE PHYSICIAN Work Phone: Start: 03-31-2022 Computerized ophthal levy imaging retina Harriet Hilton OD Work Phone: Start: 02-08-2022 Urnls dip stick/tabl et rgnt auto w/o microscopy Maricarmen Yap FORGING PRESS SETTER UP.EYE PHYSICIAN Work Phone: Start: 01-13-2022 Glucose measurement, blood Floridalma Dupont MD, PhD Work Phone: Start: 01-13-2022 CARDIAC RHYTHM Other Ot her Start: 01-13-2022 Glucose measurement, blood Floridalma Dupont MD, PhD Work Phone: Start: 01-13-2022 CBC AND ELECTRONIC DIFF Virgie Soto FORGING PRESS SETTER UP-[facility] Work Phone: Start: 01-13-2022 Complete blood count with white cell differential, automated Virgie Soto FORGING PRESS SETTER UP-[facility] Work Phone: Start: 01-13-2022 Glucose quantitative blood xcpt reagent strip Virgie Soto FORGING PRESS SETTER UP-[facility] Work Phone: Start: 01-13-2022 Glucose measurement, blood Floridalma Dupont MD, PhD Work Phone: Start: 11-12-2021 Urnls dip stick/tabl et rgnt auto w/o microscopy [facility] Start: 05-06-2019 Tawanda qureshi MD Work Phone: Plan of Treatment Date Care Activity Detail Author Start: 2036 PNEUMOCOCCAL (3 - PPSV23 if available, else PCV20) PNEUMOCOCCAL (3 - PPSV23 if available, else PCV20) [facility] Start: 2036 PNEUMOCOCCAL (3 - PPSV23 or PCV20) PNEUMOCOCCAL (3 - PPSV23 or PCV20) [facility] Start: 2036 Pneumococcal vaccination Pneumococcal Vaccine (3 - PPSV23 or PCV20) [facility] Start: 2036 PNEUMOCOCCAL VACCINE SERIES (3 - PPSV23 or PCV20) PNEUMOCOCCAL VACCINE SERIES (3 - PPSV23 or PCV20) [facility] Start: 10-26-2030 Urine microalbumin profile [facility] Start: 06-20-2024 Annual PCP Team Chronic Disease Visit Annual PCP Team Chronic Disease Visit [facility] Start: 06-05-2024 Annual PCP Team Chronic Disease Visit Annual PCP Team Chronic Disease Visit [facility] Start: 05-05-2024 Annual PCP Team Chronic Disease Visit Annual PCP Team Chronic Disease Visit [facility] Start: 12-09-2023 ANNUAL PCP TEAM CHRONIC DISEASE VISIT ANNUAL PCP TEAM CHRONIC DISEASE VISIT [facility] Start: 11-15-2023 ANNUAL PCP TEAM CHRONIC DISEASE VISIT ANNUAL PCP TEAM CHRONIC DISEASE VISIT [facility] Start: 11-15-2023 COVID-19 VACCINE (#1) COVID-19 VACCINE (#1) [facility] Immunizations Immunization Date Immunization Notes Care Provider Fa cility 06-05-2023 influenza, injectabl e, quadrivalent, contains preservative Ran Murphy MD Work Phone: [facility] 06-29-2021 influenza, injectabl e, quadrivalent, contains preservative Ran Murphy MD Work Phone: [facility] 06-29-2021 influenza virus vacc ine, unspecified formulation Attila Levin MD Work Phone: [facility] 10-26-2020 tetanus toxoid, redu laure diphtheria toxoid, and acellular pertussis vaccine, adsorbed Ran Murphy MD Work Phone: [facility] 07-07-2020 influenza, injectabl e, quadrivalent, contains preservative Ran Murphy MD Work Phone: [facility] 01-18-2019 pneumococcal conjuga te vaccine, 13 valent Ran Murphy MD Work Phone: [facility] 09-18-2018 influenza, injectabl e, quadrivalent, contains preservative Ran Murphy MD Work Phone: [facility] 06-20-2017 influenza, injectabl e, quadrivalent, contains preservative Ran Murphy MD Work Phone: [facility] 10-07-2016 influenza, high dose seasonal, preservative-free Floridalma Dupont MD, PhD Work Phone: [facility] 10-07-2016 influenza, injectabl e, quadrivalent, contains preservative Ran Murphy MD Work Phone: [facility] Work Phone: 10-07-2016 pneumococcal polysaccharide vaccine, 23 valent Ran Murphy MD Work Phone: [facility] Work Phone: 07-02-2012 influenza virus vacc ine, unspecified formulation Ran Murphy MD Work Phone: [facility] Work Phone: Payers Date Payer Category Payer Medicaid [id number] 2020 Unknown [employer] [id number] 2020-Present [address] [place] [address] [id number] 2018 Medicaid [employer] [id number] 2018-Present [phone] [address] [place] [address] Medicaid [id number] 2018 Medicaid [id number] 2018 Unknown [id number] 1971 Unknown [id number] 1971 Unknown [id number] 1971 Unknown [id number] 1971 Unknown [id number] Social History Date Type Detail Facility Start: 02-26-2021 End: 10-25-2022 Tobacco smoking status NHIS Smokes tobacco daily [facility] End: 10-07-2020 History of tobacco use Cigarette Smoker [facility] Start: 02-26-2021 End: 12-23-2022 Cigarettes smoked current (pack per day) - Reported 1.5 [facility] Start: 02-26-2021 End: 10-25-2022 Tobacco use and exposure Smokeless tobacco non-user [facility] Start: 10-31-2021 End: 07-13-2023 Alcohol intake Current non-drinker of alcohol (finding) [facility] Start: 03-10-2021 History SDOH Social Connections Phone 3 [facility] Start: 03-10-2021 History SDOH Social Connections Get Together 1 [facility] Start: 03-10-2021 History SDOH Social Connections Membership 2 [facility] Start: 03-10-2021 History SDOH Physica l Activity DPW 0 [facility] Start: 1970 Sex Assigned At Not on file [facility] Start: 10-19-2021 End: 06-21-2022 Exposure to SARS-CoV-2 (event) Not sure [facility] Start: 01-13-2022 Tobacco smoking stat us NHIS Occasional tobacco smoker [facility] Start: 01-13-2022 Alcohol intake Ex-drinker (finding) [facility] Start: 08-12-2020 History SDOH Alcohol Comment history of alcohol abuse [facility] Start: 01-31-2022 End: 02-16-2022 Exposure to SARS-CoV-2 (event) Yes [facility] Work Phone: Start: 03-10-2021 End: 12-23-2022 Social connection and isolation panel [facility] Do you belong to any clubs or organizations such as confucianism groups, unions, fraternal or athletic groups, or school groups? No [facility] Are you now , , , , never or living with a partner? [facility] How hard is it for y ou to pay for the very basics like food, housing, medical care, and heating Somewhat hard [facility] Adult Depression Screening Assessment 4 [facility] (I/We) worried yamilka er (my/our) food would run out before (I/we) got money to buy more. Sometimes true [facility] Medical Equipment Procedure Code Equipment Code Equipment Origin al Text Equipment Identifier Dates Bina Hole Cover 14mm - [id number] Start: 01-20-2011 Clinical Notes 09-05-2017 to 08-25-2023 Yadi Pierce APRN.[facility] - 07/14/2023 6:31 PM Vance Schwab MD - 07/13/2023 11:42 AM Sergio Seo MD - 07/13/2023 10:53 AM Latonya Sheridan Ma - 07/13/2023 10:44 AM EST Note Date & Type Note Facility 08-25-2023 Note HNO ID: [id number] Author: RAN MURPHY MD Service: ? Author Type: Physician Type: Progress Notes Filed: 08/26/2023 10:25 Note Text: Blood preassurChief Complaint Patient presents with: Physical HPI Nara Beyer is a 53 year old female who presents here today for Physical. Patient with hx of DM2, hyperlipidemia, [place], alcoholism (since 2018), moyamoya, PAD, and those as below. Patient indicated she has an eye exam on 09/04/2023 - Dr. Hilton. Component Ref Range AND Units 3 d ago (08/22/23) 3 mo ago (05/05/23) 9 mo ago (11/14/22) 1 yr ago (02/16/22) 1 yr ago (10/29/21) 2 yr ago (06/29/21) 2 yr ago (03/01/21) Hemoglobin A1C 4.3 - 5.6 % 7.4 High 10.7 High CM 6.2 High CM 6.7 High CM 6.1 High CM 6.7 High CM 7.7 High CM Comment: [place] [employer] guidelines indicate that patients with HgbA1c in the range 5.7-6.4% Patient is having surgery 10/18/[address] Hughes wanted this done at [facility] due to hx of stroke; patient is concerned being off the blood thinner but she also needs the surgery. Patient is concerned because she will not have anyone to help take care of her. She would like 2 month referral for Home health after surgery. Patient is moving back in with her son and daughter in law at the end of August or 14 of September. Her boyfriend who drinks they are getting kicked out of their place that's why she is moving in with her son. She is also needs a new glucometer. She indicated that she her old was her ex-'s house but found out that he has bed bugs so she needed a new one. Patient is also interested in a lifeline. In case while her son and daughter in law are at work she would have the ability to call for help. She was not sure due to her age if she would qualify. Needs to make a f/u appt with Vascular at [facility]. Last seen there in 2021. Continues to smoke. Past medical history, appointments, medications, allergies reviewed. Previous Medical History PAST MEDICAL HISTORY Diagnosis Date Alcohol abuse 03/31/2018 ER 03/2017 [place] with alcoholic pancreatitis Alcoholism (HCC) 04/10/2018 Had quit drinking drink in 1995 and had been going to AA. Had a short relapse in 03/2018 Allergic rhinitis 12/15/2006 Balance problems 01/23/2017 Bilateral carotid artery disease (HCC) 01/07/2011 MRA 12/2013 unchanged from that of 2010. US 03/2016 Rt occluded, Lt 20-40% Carcinoma in situ of cervix uteri 2000 Carotid artery stenosis 09/16/2019 CVA (cerebral infarction) 12/2010 Diffuse cystic mastopathy 05/25/2005 Dysarthria 10/26/2020 After Moyamoya surgery 10/07/2020 Dyslipidemia Gastroesophageal reflux disease without esophagitis 03/30/2016 Generalized anxiety disorder Anxiety, Generalized Greater trochanteric bursitis of right hip 04/10/2018 Gross hematuria 11/07/2022 Cystoscopy Neg 10/2022 H/O: CVA (cerebrovascular accident) 09/06/2013 History of chronic pancreatitis 05/25/2005 Resolved after gall bladder removed. Left-sided weakness 01/23/2017 Chronic and residual from CVA 2006. Leg pain, bilateral 09/17/2018 Script given for support socks Major depression 05/25/[address] [facility]. 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 Dupont, , fax: [phone] Peripheral arterial disease (HCC) 02/26/2021 Dr. goldstein Positive PPD 09/17/2018 Per [facility] 09/2018, Getting chest x-ray 09/18/2018 and was neg and repeat PPD 01/2019 was neg Slurred speech 01/23/2017 Discussed 17 and MRI was ok. 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 BYPASS GRAFT OTHR,CAROTID 08/14/2010 CONIZATION CERVIX W/WO DANDC RPR ELTRD EXC 08/14/2000 LEEP-Cervix DILATION AND CURETTAGE DXAND/THER NONOBSTETRIC 08/14/1989 Dilation AND curettage EDAS (ENCEPHALO RAYNE ARTERIO SYNAGIOSIS) Left 10/07/2020 [facility]: revascularization for Moyamoya disease LAPS SURG CHOLECYSTECTOMY W/CHOLANGIOGRAPHY 04/05/2007 LEXISCAN STRESS TEST 07/23/2020 Negative TONSILLECTOMY PRIMARY/SECONDARY Tonsillectomy TOTAL ABDOMINAL HYSTERECT W/WO RMVL TUBE OVARY Hysterectomy, NEW/LSO Family History FAMILY HISTORY Problem Relation Age of Onset Hypertension Mother Diabetes Mother Heart Father Diabetes Brother 1/2 brother Patient Allerg (more content not included)... [facility] 08-22-2023 Note HNO ID: [id number] Author: OZIEL CHANDLER APRN.EYE PHYSICIAN Service: ? Author Type: Nurse Practitioner Type: Progress Notes Filed: 08/22/2023 14:19 Note Text: Chief Complaint Patient presents with: Follow Up HPI Nara Beyer is a 53 year old female who presents here today for Above Complaints.. Patient presents for routine follow up for diabetes. Patient reports she has not been checking her sugar regularly but has been taking her medication. Patient also inquiring about diabetic alert medication. Past medical history, appointments, medications, allergies reviewed. Previous Medical History PAST MEDICAL HISTORY Diagnosis Date Alcohol abuse 03/31/2018 ER 03/2017 [place] with alcoholic pancreatitis Alcoholism (HCC) 04/10/2018 Had quit drinking drink in 1995 and had been going to . Had a short relapse in 03/2018 Allergic rhinitis 12/15/2006 Balance problems 01/23/2017 Bilateral carotid artery disease (HCC) 01/07/2011 MRA 12/2013 unchanged from that of 2010. US 03/2016 Rt occluded, Lt 20-40% Carcinoma in situ of cervix uteri 2001 Carotid artery stenosis 09/16/2019 CVA (cerebral infarction) 12/2010 Diffuse cystic mastopathy 05/25/2005 Dysarthria 10/26/2020 After Moyamoya surgery 10/07/2020 Dyslipidemia Gastroesophageal reflux disease without esophagitis 03/30/2016 Generalized anxiety disorder Anxiety, Generalized Greater trochanteric bursitis of right hip 04/10/2018 Gross hematuria 11/07/2022 Cystoscopy Neg 10/2022 H/O: CVA (cerebrovascular accident) 09/06/2013 History of chronic pancreatitis 05/25/2005 Resolved after gall bladder removed. Left-sided weakness 01/23/2017 Chronic and residual from CVA 2006. Leg pain, bilateral 09/17/2018 Script given for support socks Major depression 05/25/[address] [facility]. 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 Dupont, , fax: [phone] Peripheral arterial disease (HCC) 02/26/2021 Dr. goldstein Positive PPD 09/17/2018 Per Med Pro 09/2018, Getting chest x-ray 09/18/2018 and was neg and repeat PPD 01/2019 was neg Slurred speech 01/23/2017 Discussed and MRI was ok. 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 BYPASS GRAFT OTHR,CAROTID 08/14/2010 CONIZATION CERVIX W/WO DANDC RPR ELTRD EXC 08/14/2000 LEEP-Cervix DILATION AND CURETTAGE DXAND/THER NONOBSTETRIC 08/14/1989 Dilation AND curettage EDAS (ENCEPHALO RAYNE ARTERIO SYNAGIOSIS) Left 10/07/2020 [facility]: revascularization for Moyamoya disease LAPS SURG CHOLECYSTECTOMY W/CHOLANGIOGRAPHY 04/05/2007 LEXISCAN STRESS TEST 07/23/2020 Negative TONSILLECTOMY PRIMARY/SECONDARY Tonsillectomy TOTAL ABDOMINAL HYSTERECT W/WO RMVL TUBE OVARY Hysterectomy, NEW/LSO Family History FAMILY HISTORY Problem Relation Age of Onset Hypertension Mother Diabetes Mother Heart Father Diabetes Brother 1/2 brother Patient Allergies ALLERGIES Allergen Reactions Bactrim [Sulfametho* Hives Gabapentin Hives Egg Unknown Abilify [Aripiprazo* Other: See Comments cannot sit still and makes anxiety worse. Ambien [Zolpidem] Intolerance Made her jittery Doxycycline Unknown Erythromycin Other: See Comments nausea and lightheadedness Flexeril [Cyclobenz* Other: See Comments dry mouth and drosey. Glucophage [Metform* Other: See Comments Diarrhea, even with XR Lorazepam Mental Status Change Note that helped with panic attacks, but caused anger reaction Metformin Other: See Comments Stomach pain an diarrhea Penicillins Rash Trazodone Intolerance Made her more jittery and anxious Wellbutrin Sr [Bupr* Intolerance Made her aggresssive Zithromax [Azithrom* Rash, Diarrhea, GI Upset However, willign to take for acute bronchitis as it is effective Current Medications Current Outpatient Medications on File Prior to Visit Medication Sig meclizine (ANTIVERT) 25 mg tab Take 1 tablet by mouth every 6 hours as needed (dizziness). empagliflozin (JARDIANCE) 25 mg tablet Take 1 tablet by mouth once daily. Take 1 tablet once daily in the morning atorvastatin (LIPITOR) 80 mg tablet Take 1 tablet by mouth daily at bedtime. pantoprazole DR (PROTONIX) 40 mg tablet Take 1 tablet by mouth two times a day. Take on empty stomac (more content not included)... [facility] 07-14-2023 Note HNO ID: [id number] Author: Yadi Pierce APRN.EYE PHYSICIAN Service: ? Author Type: Nurse Practitioner Type: Progress Notes Filed: 07/14/2023 6:43 PM Note Text: CC: Patient presents with: Urinary Problem: Frequency and burning x 4 days HPI Nara Beyer is a 53 year old female who presents with complaint of possible UTI. These symptoms have been present for 4 days. Associated symptoms: burning, frequency, and vaginal itching Denies: fever, chills, sweats, abdominal pain, and flank pain Treatments: nothing The ROS was otherwise negative. PMH, Medications, labs, allergies, and recent past visits with PCP were reviewed and updated as able. PHYSICAL EXAM: BP 118/76 Pulse 78 Temp 36.1 ?C (97 ?F) Resp 16 Wt 72.5 kg (159 lb 12.8 oz) SpO2 99% BMI 25.79 kg/m? General: Well appearing and alert CV: Regular rate and rhythm without obvious murmur Lungs: clear to auscultation bilaterally Back: straight and symmetric Abdomen: soft, nontender, nondistended PAST MEDICAL HISTORY Diagnosis Date Alcohol abuse 03/31/2018 ER 03/2017 [place] with alcoholic pancreatitis Alcoholism (HCC) 04/10/2018 Had quit drinking drink in 1995 and had been going to AA. Had a short relapse in 03/2018 Allergic rhinitis 12/15/2006 Balance problems 01/23/2017 Bilateral carotid artery disease (HCC) 01/07/2011 MRA 12/2013 unchanged from that of 2010. US 03/2016 Rt occluded, Lt 20-40% Carcinoma in situ of cervix uteri 2000 Carotid artery stenosis 09/16/2019 CVA (cerebral infarction) 12/2010 Diffuse cystic mastopathy 05/25/2005 Dysarthria 10/26/2020 After Moyamoya surgery 10/07/2020 Dyslipidemia Gastroesophageal reflux disease without esophagitis 03/30/2016 Generalized anxiety disorder Anxiety, Generalized Greater trochanteric bursitis of right hip 04/10/2018 Gross hematuria 11/07/2022 Cystoscopy Neg 10/2022 H/O: CVA (cerebrovascular accident) 09/06/2013 History of chronic pancreatitis 05/25/2005 Resolved after gall bladder removed. Left-sided weakness 01/23/2017 Chronic and residual from CVA 2006. Leg pain, bilateral 09/17/2018 Script given for support socks Major depression 05/25/[address] [facility] 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 Dupont, , fax: [phone] Peripheral arterial disease (HCC) 02/26/2021 Dr. goldstein Positive PPD 09/17/2018 Per Med Pro 09/2018, Getting chest x-ray 09/18/2018 and was neg and repeat PPD 01/2019 was neg Slurred speech 01/23/2017 Discussed and MRI was ok. Smoker 07/03/2015 Since 14 yo, 1PPD Type 2 diabetes mellitus with mild nonproliferative retinopathy and macular edema, without long-term current use of insulin (HCC) 04/19/2016 Urinary sys symptom NEC 06/16/2006 noted problems with completely emptying bladder since hysterectomy Vitamin D deficiency 03/04/2021 Well adult exam 05/16/2022 Last done: 05/16/2022 PAST SURGICAL HISTORY Procedure Laterality Date 2D ECHO (EXEP) 07/14/2015 EF =63% no valve disease. BYPASS GRAFT OTHR,CAROTID 08/14/2010 CONIZATION CERVIX W/WO DANDC RPR ELTRD EXC 08/14/2000 LEEP-Cervix DILATION AND CURETTAGE DXAND/THER NONOBSTETRIC 08/14/1989 Dilation AND curettage EDAS (ENCEPHALO RAYNE ARTERIO SYNAGIOSIS) Left 10/07/2020 [facility]: revascularization for Moyamoya disease LAPS SURG CHOLECYSTECTOMY W/CHOLANGIOGRAPHY 04/05/2007 LEXISCAN STRESS TEST 07/23/2020 Negative TONSILLECTOMY PRIMARY/SECONDARY Tonsillectomy TOTAL ABDOMINAL HYSTERECT W/WO RMVL TUBE OVARY Hysterectomy, NEW/LSO ALLERGIES Bactrim [Sulfamethoxazole], Gabapentin, Abilify [Aripiprazole], Ambien [Zolpidem], Doxycycline, Eggs [Other], Erythromycin, Flexeril [Cyclobenzaprine], Glucophage [Metformin Hcl], Lorazepam, Metformin, Penicillins, Trazodone, Wellbutrin Sr [Bupropion Hcl], and Zithromax [Azithromycin] MEDICATIONS meclizine (ANTIVERT) 25 mg tab Take 1 tablet by mouth every 6 hours as needed (dizziness). empagliflozin (JARDIANCE) 25 mg tablet Take 1 tablet by mouth once daily. Take 1 tablet once daily in the morning atorvastatin (LIPITOR) 80 mg tablet Take 1 tablet by mouth daily at bedtime. pantoprazole DR (PROTONIX) 40 mg tablet Take 1 tablet by mouth two times a day. Take on empty stomach, 1/2 hr before meal. zonisamide (ZONEGRAN) 25 mg capsule Take 1 capsule by mouth once daily. flash glucose sensor (FREESTYLE JACQUELINE 2 SENSOR) kit 1 Each four times daily. baclofen 10 mg tablet Take 1 tablet by mouth two times a day as needed (muscle spasms). clopidogrel (PLAVIX) 75 mg tablet Take 1 tablet by mouth once daily. dulaglutide (TRULICITY) 0.75 mg/0.5 mL pen injector Inject 0.75 mg subcutaneously one time a week. Inject dos (more content not included)... [facility] 07-14-2023 History of Presen t illness Narrative CC: Patient presents with: Urinary Problem: Frequency and burning x 4 days HPI Nara Beyer is a 53 year old female who presents with complaint of possible UTI. These symptoms have been present for 4 days. Associated symptoms: burning, frequency, and vaginal itching Denies: fever, chills, sweats, abdominal pain, and flank pain Treatments: nothing The ROS was otherwise negative. PMH, Medications, labs, allergies, and recent past visits with PCP were reviewed and updated as able. PHYSICAL EXAM: BP 118/76 Pulse 78 Temp 36.1 C (97 F) Resp 16 Wt 72.5 kg (159 lb 12.8 oz) SpO2 99% BMI 25.79 kg/m General: Well appearing and alert CV: Regular rate and rhythm without obvious murmur Lungs: clear to auscultation bilaterally Back: straight and symmetric Abdomen: soft, nontender, nondistended PAST MEDICAL HISTORY Diagnosis Date Alcohol abuse 03/31/2018 ER 03/2017 [place] with alcoholic pancreatitis Alcoholism (HCC) 04/10/2018 Had quit drinking drink in 1995 and had been going to AA. Had a short relapse in 03/2018 Allergic rhinitis 12/15/2006 Balance problems 01/23/2017 Bilateral carotid artery disease (HCC) 01/07/2011 MRA 12/2013 unchanged from that of 2010. US 03/2016 Rt occluded, Lt 20-40% Carcinoma in situ of cervix uteri 2001 Carotid artery stenosis 09/16/2019 CVA (cerebral infarction) 12/2010 Diffuse cystic mastopathy 05/25/2005 Dysarthria 10/26/2020 After Moyamoya surgery 10/07/2020 Dyslipidemia Gastroesophageal reflux disease without esophagitis 03/30/2016 Generalized anxiety disorder Anxiety, Generalized Greater trochanteric bursitis of right hip 04/10/2018 Gross hematuria 11/07/2022 Cystoscopy Neg 10/2022 H/O: CVA (cerebrovascular accident) 09/06/2013 History of chronic pancreatitis 05/25/2005 Resolved after gall bladder removed. Left-sided weakness 01/23/2017 Chronic and residual from CVA 2006. Leg pain, bilateral 09/17/2018 Script given for support socks Major depression 05/25/[address] [facility] 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 Dupont, , fax: [phone] Peripheral arterial disease (HCC) 02/26/2021 Dr. goldstein Positive PPD 09/17/2018 Per Med Pro 09/2018, Getting chest x-ray 09/18/2018 and was neg and repeat PPD 01/2019 was neg Slurred speech 01/23/2017 Discussed [id number] and MRI was ok. Smoker 07/03/2015 Since 14 yo, 1PPD Type 2 diabetes mellitus with mild nonproliferative retinopathy and macular edema, without long-term current use of insulin (HCC) 04/19/2016 Urinary sys symptom NEC 06/16/2006 noted problems with completely emptying bladder since hysterectomy Vitamin D deficiency 03/04/2021 Well adult exam 05/16/2022 Last done: 05/16/2022 PAST SURGICAL HISTORY Procedure Laterality Date 2D ECHO (EXEP) 07/14/2015 EF =63% no valve disease. BYPASS GRAFT OTHR,CAROTID 08/14/2010 CONIZATION CERVIX W/WO D&C RPR ELTRD EXC 08/14/2000 LEEP-Cervix DILATION & CURETTAGE DX&/THER NONOBSTETRIC 08/14/1989 Dilation & curettage EDAS (ENCEPHALO RAYNE ARTERIO SYNAGIOSIS) Left 10/07/2020 [facility]: revascularization for Moyamoya disease LAPS SURG CHOLECYSTECTOMY W/CHOLANGIOGRAPHY 04/05/2007 LEXISCAN STRESS TEST 07/23/2020 Negative TONSILLECTOMY PRIMARY/SECONDARY <AGE 13 Tonsillectomy TOTAL ABDOMINAL HYSTERECT W/WO RMVL TUBE OVARY Hysterectomy, NEW/LSO ALLERGIES Bactrim [Sulfamethoxazole], Gabapentin, Abilify [Aripiprazole], Ambien [Zolpidem], Doxycycline, Eggs [Other], Erythromycin, Flexeril [Cyclobenzaprine], Glucophage [Metformin Hcl], Lorazepam, Metformin, Penicillins, Trazodone, Wellbutrin Sr [Bupropion Hcl], and Zithromax [Azithromycin] MEDICATIONS meclizine (ANTIVERT) 25 mg tab Take 1 tablet by mouth every 6 hours as needed (dizziness). empagliflozin (JARDIANCE) 25 mg tablet Take 1 tablet by mouth once daily. Take 1 tablet once daily in the morning atorvastatin (LIPITOR) 80 mg tablet Take 1 tablet by mouth daily at bedtime. pantoprazole DR (PROTONIX) 40 mg tablet Take 1 tablet by mouth two times a day. Take on empty stomach, 1/2 hr before meal. zonisamide (ZONEGRAN) 25 mg capsule Take 1 capsule by mouth once daily. flash glucose sensor (FREESTYLE JACQUELINE 2 SENSOR) kit 1 Each four times daily. baclofen 10 mg tablet Take 1 tablet by mouth two times a day as needed (muscle spasms). clopidogrel (PLAVIX) 75 mg tablet Take 1 tablet by mouth once daily. dulaglutide (TRULICITY) 0.75 mg/0.5 mL pen injector Inject 0.75 mg subcutaneously one time a week. Inject dose once per week. Discard Pen After glimepiride (AMARYL) 4 mg tablet TAKE ONE TABLETS BY MOUTH ONCE DAILY WITH BREAKFAST albuterol (PROVENTIL) 2.5 mg /3 mL (0.083 %) nebulizer solution Use 3 mL via nebulizer every 4 hours as needed for wheezing/shortness of breath. Use over 5-15minutes. Nebulizer and Compressor For Neb With supplies. Use every 4 hrs as needed. Dx: J45.20 estradiol (ESTRACE) 0.01 % (0.1 mg/gram) vaginal cream Use 0.5g vaginally at bedtime for 2 weeks then 1-3 time/weeks for maintenance. Cholecalciferol, Vitamin D3, 125 mcg (5,000 unit) cap Take 1 capsule by mouth once daily. flash glucose scanning reader (FREESTYLE JACQUELINE 2 READER) 1 Each four times daily. blood sugar diagnostic (BLOOD GLUCOSE TEST) test strip Test blood sugar(s) 1 times daily. Dx: Other DM Code E11.3219 Insulin: No Lancets lancets Test blood sugar(s) 1 times daily. Dx: Other DM Code E11.3218 Insulin: No blood sugar diagnostic (BLOOD GLUCOSE TEST) test strip Test blood sugar(s) 1 times daily. Dx: Other DM Code E11.321 Insulin: No Blood-Glucose Sensor (DEXCOM G6 SENSOR) fern Check blood sugar once a day Dx: E11.3218 no insulin lancets (FREESTYLE LANCETS) 28 gauge Test blood sugar(s) 1 times daily. Dx: 250.0. Insulin: No omega-3 fatty acids 1,000 mg cap Take 2 capsules by mouth once daily. clonazePAM (KLONOPIN) 1 mg tablet Take 1 tablet by mouth three times daily as needed for Anxiety. Per QUEtiapine (SEROQUEL) 50 mg tablet Take 1 tablet by mouth daily at bedtime. Per FAMILY HISTORY Problem Relation Age of Onset Hypertension Mother Diabetes Mother Heart Father Diabetes Brother 1/2 brother Social History Tobacco Use Smoking status: Every Day Packs/day: 1.50 Years: 29.00 Additional pack years: 0.00 Total pack years: 43.50 Types: Cigarettes Smokeless tobacco: Never Vaping Use Vaping Use: Some days Substances: Nicotine, Flavoring Devices: SmartMoveble tank Substance Use Topics Alcohol use: No Drug use: No ASSESSMENT/PLAN: 1. Burning with urination - ICD9: 788.1, ICD10: R30.0 (primary diagnosis) - UA DIP, URINE (POC) - URINE CULTURE - NITROFURANTOIN MONOHYDRATE & MACROCRYSTAL 100 MG ORAL CAP 2. Glucosuria - ICD9: 791.5, ICD10: R81 - GLUCOSE, BLOOD (POC)-132 Prescription instructions reviewed with patient as applicable. Potential red flag symptoms discussed with the patient. Reviewed appropriate action plan to take if red flag symptoms occur. Patient agreeable to treatment plan. Yadi Pierce APRN.JENN documented in this encounter [facility] 07-13-2023 Note HNO ID: [id number] Author: Vance Shi MD Service: ? Author Type: Physician Type: Progress Notes Filed: 07/13/2023 4:08 PM Note Text: Consultation requested by Dr. Rk Hughes for an opinion regarding incisional hernia. My final recommendations will be communicated back to the requesting physician by way of shared medical record or letter via US mail. Nara Beyer is a 53 year old female who presents with an incisional hernia at an epigastric port site in the upper midline after a lap laith many years ago. Recently started getting larger and causing pain. Very small, about 3 cm. 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 Needs clearance to be off by PCP/Neurologist. Will plan on open incisional hernia repair, with or without mesh. Will not address umbilical hernia at this time as is asymptomatic. I have seen and evaluated the patient and discussed the case with the resident physician. I agree with the assessment and plan as documented in the resident?s note including a ROS that was reviewed and negative other than what was indicated in our notes. Patient consented for study? Yes STUDY TITLE: A Modern Comparison of Suture Repair with Mesh Repair for Incisional Hernia IRB NO.: # [id number] COREMAKER: Hernando Melo MD Consenting was performed by the attending surgeon, in a [id number] manner, during preoperative evaluation in General Surgery clinic. Discussed above research protocol with the patient. The risks, benefits, alternatives, and costs were discussed. The study requirements and follow up procedures were reviewed and the importance of follow-up compliance was stressed. All patient questions were addressed and answered. Patient has read and understood the study procedures and requirements. Patient has agreed to proceed with trial participation and consent signed. Copy of the signed consent provided to the patient. INCLUSION CRITERIA Yes No 1. The patient is > 18 years of age [x] [] 2. Anticipated hernia defect 2-6cm in width [x] [] 3. Non-emergent case [x] [] 4. CDC class I [x] [] 6. Incisional hernia [x] [] 7. Hernia Society Classification: M1-M5 [x] [] EXCLUSION CRITERIA Yes No 1. Patient is [] [x] 2. Patients who previously underwent a prior ventral hernia repair with mesh at the site of the intended repair. [] [x] 3. Ventral hernia <2cm or > 6 cm in width [] [x] 4. Non-incisional hernia [] [x] 5. Hernia Society Classification: L1-L4 [] [x] 6. CDC wound class II-IV [] [x] [facility] [facility] 07[facility]-2023 Note HNO ID: [id number] Author: Sergio Bojorquez MD Service: ? Author Type: Fellow Type: Progress Notes Filed: 07/13/2023 4:08 PM Note Text: [facility] - HISTORY AND PHYSICAL Chief Complaint: Ventral hernia HPI: Nara Beyer is a 53 year old female with history of 2 ischemic CVAs (40yo, and 50 yo) secondary to moyamoya, diabetes (last A1c around 10). She is on Plavix. She undergone two intracranial bypasses by neurosurgery and has been stable since then. She is gone off Plavix only once for 3 days for dental procedure. She has some sequela from previous stroke including gait and speech difficulties. Hernia is very symptomatic. It is associated with pain, no obstructive symptoms. She has been to the ER multiple times for this issue and has followed up with Dr. Hughes who recommended evaluation at [facility] given her comorbidities.Denies nausea or vomiting, chest pain, shortness of breath, diarrhea or constipation, blood in stool or urine, fevers or chills, urinary symptoms. She is an active smoker (1ppd). Relevant previous operations include: 2004 Laparoscopic cholecystectomy Lap partial hysterectomy No history of Psychiatric Disorders or Opioid Use Partially dependent No employment None Diabetes Mellitus N/A PAST MEDICAL HISTORY Diagnosis Date Alcohol abuse 03/31/2018 ER 03/2017 [place] with alcoholic pancreatitis Alcoholism (HCC) 04/10/2018 Had quit drinking drink in 1995 and had been going to . Had a short relapse in 03/2018 Allergic rhinitis 12/15/2006 Balance problems 01/23/2017 Bilateral carotid artery disease (HCC) 01/07/2011 MRA 12/2013 unchanged from that of 2010. US 03/2016 Rt occluded, Lt 20-40% Carcinoma in situ of cervix uteri 2000 Carotid artery stenosis 09/16/2019 CVA (cerebral infarction) 12/2010 Diffuse cystic mastopathy 05/25/2005 Dysarthria 10/26/2020 After Moyamoya surgery 10/07/2020 Dyslipidemia Gastroesophageal reflux disease without esophagitis 03/30/2016 Generalized anxiety disorder Anxiety, Generalized Greater trochanteric bursitis of right hip 04/10/2018 Gross hematuria 11/07/2022 Cystoscopy Neg 10/2022 H/O: CVA (cerebrovascular accident) 09/06/2013 History of chronic pancreatitis 05/25/2005 Resolved after gall bladder removed. Left-sided weakness 01/23/2017 Chronic and residual from CVA 2006. Leg pain, bilateral 09/17/2018 Script given for support socks Major depression 05/25/[address] [facility]. 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 Dupont, , fax: [phone] Peripheral arterial disease (HCC) 02/26/2021 Dr. goldstein Positive PPD 09/17/2018 Per Med Pro 09/2018, Getting chest x-ray 09/18/2018 and was neg and repeat PPD 01/2019 was neg Slurred speech 01/23/2017 Discussed and MRI was ok. Smoker 07/03/2015 Since 14 yo, 1PPD Type 2 diabetes mellitus with mild nonproliferative retinopathy and macular edema, without long-term current use of insulin (HCC) 04/19/2016 Urinary sys symptom NEC 06/16/2006 noted problems with completely emptying bladder since hysterectomy Vitamin D deficiency 03/04/2021 Well adult exam 05/16/2022 Last done: 05/16/2022 PAST SURGICAL HISTORY Procedure Laterality Date 2D ECHO (EXEP) 07/14/2015 EF =63% no valve disease. BYPASS GRAFT OTHR,CAROTID 08/14/2010 CONIZATION CERVIX W/WO DANDC RPR ELTRD EXC 08/14/2000 LEEP-Cervix DILATION AND CURETTAGE DXAND/THER NONOBSTETRIC 08/14/1989 Dilation AND curettage EDAS (ENCEPHALO RAYNE ARTERIO SYNAGIOSIS) Left 10/07/2020 [facility]: revascularization for Moyamoya disease LAPS SURG CHOLECYSTECTOMY W/CHOLANGIOGRAPHY 04/05/2007 LEXISCAN STRESS TEST 07/23/2020 Negative TONSILLECTOMY PRIMARY/SECONDARY Tonsillectomy TOTAL ABDOMINAL HYSTERECT W/WO RMVL TUBE OVARY Hysterectomy, NEW/LSO Social History Tobacco Use Smoking status: Every Day Packs/day: 1.50 Years: 29.00 Additional pack years: 0.00 Total pack years: 43.50 Types: Cigarettes Smokeless tobacco: Never Vaping Use Vaping Use: Some days Substances: Nicotine, Flavoring Devices: RefSongAfter tank Substance Use Topics Alcohol use: No Drug use: No Additional social history not relevant to the patient's HPI FAMILY HISTORY Problem Relation Age of Onset Hypertension Mother Diabetes Mother Heart Father Diabetes Brother 1/2 brother Additional family history not relevant to the patient's HPI ALLERGIES Allergen Reactions Bactrim [Sulfametho* Hives Gabapentin Hives Abilify [Aripiprazo* Other: See Comments cannot sit still and makes anxiety worse. Ambien [Zolpidem] Intolerance Made her jittery Doxycycl (more content not included)... [facility] 07-13-2023 History of Presen t illness Narrative Consultation requested by Dr. Rk Hughes for an opinion regarding incisional hernia. My final recommendations will be communicated back to the requesting physician by way of shared medical record or letter via US mail. Nara Beyer is a 53 year old female who presents with an incisional hernia at an epigastric port site in the upper midline after a lap laith many years ago. Recently started getting larger and causing pain. Very small, about 3 cm. 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 Needs clearance to be off by PCP/Neurologist. Will plan on open incisional hernia repair, with or without mesh. Will not address umbilical hernia at this time as is asymptomatic. I have seen and evaluated the patient and discussed the case with the resident physician. I agree with the assessment and plan as documented in the resident s note including a ROS that was reviewed and negative other than what was indicated in our notes. Patient consented for study? Yes STUDY TITLE: A Modern Comparison of Suture Repair with Mesh Repair for Incisional Hernia IRB NO.: # [id number] COREMAKER: Hernando Melo MD Consenting was performed by the attending surgeon, in a [id number] manner, during preoperative evaluation in General Surgery clinic. Discussed above research protocol with the patient. The risks, benefits, alternatives, and costs were discussed. The study requirements and follow up procedures were reviewed and the importance of follow-up compliance was stressed. All patient questions were addressed and answered. Patient has read and understood the study procedures and requirements. Patient has agreed to proceed with trial participation and consent signed. Copy of the signed consent provided to the patient. INCLUSION CRITERIA Yes No 1. The patient is > 18 years of age [x] [] 2. Anticipated hernia defect 2-6cm in width [x] [] 3. Non-emergent case [x] [] 4. CDC class I [x] [] 6. Incisional hernia [x] [] 7. Hernia Society Classification: M1-M5 [x] [] EXCLUSION CRITERIA Yes No 1. Patient is [] [x] 2. Patients who previously underwent a prior ventral hernia repair with mesh at the site of the intended repair. [] [x] 3. Ventral hernia <2cm or > 6 cm in width [] [x] 4. Non-incisional hernia [] [x] 5. Hernia Society Classification: L1-L4 [] [x] 6. 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 She is on Plavix. She undergone two intracranial bypasses by neurosurgery and has been stable since then. She is gone off Plavix only once for 3 days for dental procedure. She has some sequela from previous stroke including gait and speech difficulties. Hernia is very symptomatic. It is associated with pain, no obstructive symptoms. She has been to the ER multiple times for this issue and has followed up with Dr. Hughes who recommended evaluation at [facility] given her comorbidities.Denies nausea or vomiting, chest pain, shortness of breath, diarrhea or constipation, blood in stool or urine, fevers or chills, urinary symptoms. She is an active smoker (1ppd). Relevant previous operations include: 2005 Laparoscopic cholecystectomy Lap partial hysterectomy No history of Psychiatric Disorders or Opioid Use Partially dependent No employment None Diabetes Mellitus N/A PAST MEDICAL HISTORY Diagnosis Date Alcohol abuse 03/31/2018 ER 03/2017 [place] with alcoholic pancreatitis Alcoholism (HCC) 04/10/2018 Had quit drinking drink in 1995 and had been going to . Had a short relapse in 03/2018 Allergic rhinitis 12/15/2006 Balance problems 01/23/2017 Bilateral carotid artery disease (HCC) 01/07/2011 MRA 12/2013 unchanged from that of 2010. US 03/2016 Rt occluded, Lt 20-40% Carcinoma in situ of cervix uteri 2001 Carotid artery stenosis 09/16/2019 CVA (cerebral infarction) 12/2010 Diffuse cystic mastopathy 05/25/2005 Dysarthria 10/26/2020 After Moyamoya surgery 10/07/2020 Dyslipidemia Gastroesophageal reflux disease without esophagitis 03/30/2016 Generalized anxiety disorder Anxiety, Generalized Greater trochanteric bursitis of right hip 04/10/2018 Gross hematuria 11/07/2022 Cystoscopy Neg 10/2022 H/O: CVA (cerebrovascular accident) 09/06/2013 History of chronic pancreatitis 05/25/2005 Resolved after gall bladder removed. Left-sided weakness 01/23/2017 Chronic and residual from CVA 2006. Leg pain, bilateral 09/17/2018 Script given for support socks Major depression 05/25/[address] [facility]. 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 Dupont, , fax: [phone] Peripheral arterial disease (HCC) 02/26/2021 Dr. goldstein Positive PPD 09/17/2018 Per Med Pro 09/2018, Getting chest x-ray 09/18/2018 and was neg and repeat PPD 01/2019 was neg Slurred speech 01/23/2017 Discussed and MRI was ok. Smoker 07/03/2015 Since 14 yo, 1PPD Type 2 diabetes mellitus with mild nonproliferative retinopathy and macular edema, without long-term current use of insulin (HCC) 04/19/2016 Urinary sys symptom NEC 06/16/2006 noted problems with completely emptying bladder since hysterectomy Vitamin D deficiency 03/04/2021 Well adult exam 05/16/2022 Last done: 05/16/2022 PAST SURGICAL HISTORY Procedure Laterality Date 2D ECHO (EXEP) 07/14/2015 EF =63% no valve disease. BYPASS GRAFT OTHR,CAROTID 08/14/2010 CONIZATION CERVIX W/WO D&C RPR ELTRD EXC 08/14/2000 LEEP-Cervix DILATION & CURETTAGE DX&/THER NONOBSTETRIC 08/14/1989 Dilation & curettage EDAS (ENCEPHALO RAYNE ARTERIO SYNAGIOSIS) Left 10/07/2020 [facility]: revascularization for Moyamoya disease LAPS SURG CHOLECYSTECTOMY W/CHOLANGIOGRAPHY 04/05/2007 LEXISCAN STRESS TEST 07/23/2020 Negative TONSILLECTOMY PRIMARY/SECONDARY <AGE 13 Tonsillectomy TOTAL ABDOMINAL HYSTERECT W/WO RMVL TUBE OVARY Hysterectomy, NEW/LSO Social History Tobacco Use Smoking status: Every Day Packs/day: 1.50 Years: 29.00 Additional pack years: 0.00 Total pack years: 43.50 Types: Cigarettes Smokeless tobacco: Never Vaping Use Vaping Use: Some days Substances: Nicotine, Flavoring Devices: Refillable tank Substance Use Topics Alcohol use: No Drug use: No Additional social history not relevant to the patient's HPI FAMILY HISTORY Problem Relation Age of Onset Hypertension Mother Diabetes Mother Heart Father Diabetes Brother 1/2 brother Additional family history not relevant to the patient's HPI ALLERGIES Allergen Reactions Bactrim [Sulfametho* Hives Gabapentin Hives Abilify [Aripiprazo* Other: See Comments cannot sit still and makes anxiety worse. Ambien [Zolpidem] Intolerance Made her jittery Doxycycline Unknown Eggs [Other] Unknown Erythromycin Other: See Comments nausea and lightheadedness Flexeril [Cyclobenz* Other: See Comments dry mouth and drosey. Glucophage [Metform* Other: See Comments Diarrhea, even with XR Lorazepam Mental Status Change Note that helped with panic attacks, but caused anger reaction Metformin Other: See Comments Stomach pain an diarrhea Penicillins Rash Trazodone Intolerance Made her more jittery and anxious Wellbutrin Sr [Bupr* Intolerance Made her aggresssive Zithromax [Azithrom* Rash, Diarrhea, GI Upset However, willign to take for acute bronchitis as it is effective Current Outpatient Medications Medication Sig Dispense Refill meclizine (ANTIVERT) 25 mg tab Take 1 tablet by mouth every 6 hours as needed (dizziness). 30 tablet 0 empagliflozin (JARDIANCE) 25 mg tablet Take 1 tablet by mouth once daily. Take 1 tablet once daily in the morning 90 tablet 1 atorvastatin (LIPITOR) 80 mg tablet Take 1 tablet by mouth daily at bedtime. [address] (PROTONIX) 40 mg tablet Take 1 tablet by mouth two times a day. Take on empty stomach, 1/2 hr before meal. 180 tablet 1 zonisamide (ZONEGRAN) 25 mg capsule Take 1 capsule by mouth once daily. 30 capsule 5 flash glucose sensor (FREESTYLE JACQUELINE 2 SENSOR) kit 1 Each four times daily. 1 Each 0 baclofen 10 mg tablet Take 1 tablet by mouth two times a day as needed (muscle spasms). 30 tablet 1 clopidogrel (PLAVIX) 75 mg tablet Take 1 tablet by mouth once daily. 90 tablet 1 dulaglutide (TRULICITY) 0.75 mg/0.5 mL pen injector Inject 0.75 mg subcutaneously one time a week. Inject dose once per week. Discard Pen After 4 Each 2 glimepiride (AMARYL) 4 mg tablet TAKE ONE TABLETS BY MOUTH ONCE DAILY WITH BREAKFAST 90 tablet 1 albuterol (PROVENTIL) 2.5 mg /3 mL (0.083 %) nebulizer solution Use 3 mL via nebulizer every 4 hours as needed for wheezing/shortness of breath. Use over 5-15minutes. 90 mL 1 Nebulizer and Compressor For Neb With supplies. Use every 4 hrs as needed. Dx: J45.20 1 Each 0 estradiol (ESTRACE) 0.01 % (0.1 mg/gram) vaginal cream Use 0.5g vaginally at bedtime for 2 weeks then 1-3 time/weeks for maintenance. 42.5 g 2 Cholecalciferol, Vitamin D3, 125 mcg (5,000 unit) cap Take 1 capsule by mouth once daily. flash glucose scanning reader (FREESTYLE JACQUELINE 2 READER) 1 Each four times daily. 1 Each 0 blood sugar diagnostic (BLOOD GLUCOSE TEST) test strip Test blood sugar(s) 1 times daily. Dx: Other DM Code E11.321 Insulin: No 50 Strip 11 Lancets lancets Test blood sugar(s) 1 times daily. Dx: Other DM Code E11.321 Insulin: No 100 Each 11 blood sugar diagnostic (BLOOD GLUCOSE TEST) test strip Test blood sugar(s) 1 times daily. Dx: Other DM Code E11.321 Insulin: No 50 Strip 11 Blood-Glucose Sensor (DEXCOM G6 SENSOR) fern Check blood sugar once a day Dx: E11.321 no insulin 4 Each 5 lancets (FREESTYLE LANCETS) 28 gauge Test blood sugar(s) 1 times daily. Dx: 250.0. Insulin: No 100 Each 11 omega-3 fatty acids 1,000 mg cap Take 2 capsules by mouth once daily. clonazePAM (KLONOPIN) 1 mg tablet Take 1 tablet by mouth three times daily as needed for Anxiety. Per QUEtiapine (SEROQUEL) 50 mg tablet Take 1 tablet by mouth daily at bedtime. Per No current facility-administered medications for this visit. REVIEW OF SYSTEMS GENERAL: No weight loss, malaise or fevers. HEENT: Negative for frequent or significant headaches, No changes in hearing or vision, no nose bleeds or other nasal problems NECK: Negative for goiter, pain or significant neck swelling RESPIRATORY: Shortness of breath CARDIOVASCULAR: Negative for chest pain, leg swelling, hypertension, CHF or palpitations GI:Reports nausea but no vomiting : No history of dysuria, frequency or incontinence MUSCULOSKELETAL: Negative for joint pain or swelling, back pain or muscle pain SKIN: Negative for lesions, rash, and itching. HEMATOLOGY/LYMPHOLOGY: Negative for prolonged bleeding, bruising easily or swollen nodes. ENDOCRINE: Negative for cold or heat intolerance, polyuria or polydipsia. The remainder of the 12 review of systems is negative other than what was mentioned in the HPI and above. BP 149/89 Pulse 78 Temp 36.1 C (97 F) (Temporal) Ht 167.6 cm (5' 6 ) Wt 68.5 kg (151 lb) BMI 24.37 kg/m Physical findings of this patient are as follows (COMPLETE 10 INCLUDING HEART AND LUNG EXAM OR CHOOSE NORMAL EXAM IF APPROPRIATE): Physical Exam Physical Exam Constitutional: The patient is well-developed, well-nourished, and in no distress. Head: Normocephalic and atraumatic. Eyes: Pupils are equal, round, and reactive to light. EOM are normal. Neck: Normal range of motion. Neck supple. Cardiovascular: Regular rhythm and normal heart sounds. Pulmonary/Chest: Effort normal and breath sounds normal. Abdominal: Soft. Bowel sounds are normal. Musculoskeletal: Normal range of motion. Neurological: He is alert. GCS score is 15. Skin: Skin is warm and dry. Psychiatric: Affect and judgment normal. Relevant Hernia Findings -small port site hernia in the epigastric region with chronically incarcerated omentum, tender to palpation. Small umbilical hernia. LABS: Hemoglobin A1C (%) Date Value 05/05/2023 10.7 11/14/2022 6.2 02/16/2022 6.7 10/29/2021 6.1 06/29/2021 6.7 03/01/2021 7.7 10/26/2020 7.7 07/07/2020 9.3 06/21/2019 8.2 Assessment and plan: Nara Beyer is a 53 year old female who presents with an epigastric incisional hernia that is symptomatic. She has history of moyamoya and has had two strokes in the past and is on plavix. The hernia is associated with pain so we recommended repair. Patient was advised to see her PCP and neurologist to determine if she can safely come off plavix during the perioperative period. We will only address the epigastric hernia and not the umbilical one since the later is not symptomatic. All questions answered, consent signed. Mesh vs no mesh study. documented in this encounter [facility] 07-13-2023 Nurse Note What is the reason for your visit today? Consult Who is your referring physician? Dr. Shi Are you having poor oral intake? NO Have you had unintentional weight loss of 15 lbs/7 Kg in the last 3-6 months? NO Bowels: regular Wound: clean & dry Temperature: No Drains: No documented in this encounter [facility] 06-23-2023 Miscellaneous Notes Reviewed chart for clinic prep. Patient has recent CT in Epic. Received operative records from [facility], sent for scanning. Enmanuel Castro EMT-P, [facility] documented in this encounter [facility] 06-20-2023 Note HNO ID: [id number] Author: Yulisa Carrillo MD Service: ? Author Type: Physician Type: Progress Notes Filed: 06/20/2023 1:07 PM Note Text: Chief Complaint Patient presents with: Dizziness: X 1 week- patient reports approx 5-7 mos ago treated in ER for this and meclizine was effective. HPI Nara Beyer is a 53 year old female who presents here today for Above Complaints. Noted she has had 2 strokes in the past. Has weakness chronically on her left side and slurred speech. Patient complaining of 1 week of vertigo symptoms. Typically occurs daily when she sits up or gets out of bed and will last for 10-15 minutes. Admits to headache and nausea. Denies hearing loss, tinnitus, new slurred speech, facial droop, numbness/tingling, new/worsening weakness. Had similar episode to this in November. Referred to PT which she did not follow up with and was given rx for antivert for PRN use. Antivert worked well. Denies urinary symptoms. Had UTI with vertigo in the past. Past medical history, appointments, medications, allergies reviewed. Previous Medical History PAST MEDICAL HISTORY Diagnosis Date Alcohol abuse 03/31/2018 ER 03/2017 [place] with alcoholic pancreatitis Alcoholism (HCC) 04/10/2018 Had quit drinking drink in 1995 and had been going to . Had a short relapse in 03/2018 Allergic rhinitis 12/15/2006 Balance problems 01/23/2017 Bilateral carotid artery disease (HCC) 01/07/2011 MRA 12/2013 unchanged from that of 2010. US 03/2016 Rt occluded, Lt 20-40% Carcinoma in situ of cervix uteri 2001 Carotid artery stenosis 09/16/2019 CVA (cerebral infarction) 12/2010 Diffuse cystic mastopathy 05/25/2005 Dysarthria 10/26/2020 After Moyamoya surgery 10/07/2020 Dyslipidemia Gastroesophageal reflux disease without esophagitis 03/30/2016 Generalized anxiety disorder Anxiety, Generalized Greater trochanteric bursitis of right hip 04/10/2018 Gross hematuria 11/07/2022 Cystoscopy Neg 10/2022 H/O: CVA (cerebrovascular accident) 09/06/2013 History of chronic pancreatitis 05/25/2005 Resolved after gall bladder removed. Left-sided weakness 01/23/2017 Chronic and residual from CVA 2006. Leg pain, bilateral 09/17/2018 Script given for support socks Major depression 05/25/[address] [facility]. 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 Dupont, , fax: [phone] Peripheral arterial disease (HCC) 02/26/2021 Dr. goldstein Positive PPD 09/17/2018 Per Med Pro 09/2018, Getting chest x-ray 09/18/2018 and was neg and repeat PPD 01/2019 was neg Slurred speech 01/23/2017 Discussed and MRI was ok. 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 BYPASS GRAFT OTHR,CAROTID 08/14/2010 CONIZATION CERVIX W/WO DANDC RPR ELTRD EXC 08/14/2000 LEEP-Cervix DILATION AND CURETTAGE DXAND/THER NONOBSTETRIC 08/14/1989 Dilation AND curettage EDAS (ENCEPHALO RAYNE ARTERIO SYNAGIOSIS) Left 10/07/2020 [facility]: revascularization for Moyamoya disease LAPS SURG CHOLECYSTECTOMY W/CHOLANGIOGRAPHY 04/05/2007 LEXISCAN STRESS TEST 07/23/2020 Negative TONSILLECTOMY PRIMARY/SECONDARY Tonsillectomy TOTAL ABDOMINAL HYSTERECT W/WO RMVL TUBE OVARY Hysterectomy, NEW/LSO Family History FAMILY HISTORY Problem Relation Age of Onset Hypertension Mother Diabetes Mother Heart Father Diabetes Brother 1/2 brother Patient Allergies ALLERGIES Allergen Reactions Bactrim [Sulfametho* Hives Gabapentin Hives Abilify [Aripiprazo* Other: See Comments cannot sit still and makes anxiety worse. Ambien [Zolpidem] Intolerance Made her jittery Doxycycline Unknown Eggs [Other] Unknown Erythromycin Other: See Comments nausea and lightheadedness Flexeril [Cyclobenz* Other: See Comments dry mouth and drosey. Glucophage [Metform* Other: See Comments Diarrhea, even with XR Lorazepam Mental Status Change Note that helped with panic attacks, but caused anger reaction Metformin Other: See Comments Stomach pain an diarrhea Penicillins Rash Trazodone Intolerance Made her more jittery and anxious Wellbutrin Sr [Bupr* Intolerance Made her aggresssive Zithromax [Azithrom* Rash, Diarrhea, GI Upset However, willign to take for acute bronchitis as it is e (more content not included)... [facility] 06-20-2023 History of Presen t illness Narrative Chief Complaint Patient presents with: Dizziness: X 1 week- patient reports approx 5-7 mos ago treated in ER for this and meclizine was effective. HPI Nara Beyer is a 53 year old female who presents here today for Above Complaints. Noted she has had 2 strokes in the past. Has weakness chronically on her left side and slurred speech. Patient complaining of 1 week of vertigo symptoms. Typically occurs daily when she sits up or gets out of bed and will last for 10-15 minutes. Admits to headache and nausea. Denies hearing loss, tinnitus, new slurred speech, facial droop, numbness/tingling, new/worsening weakness. Had similar episode to this in November. Referred to PT which she did not follow up with and was given rx for antivert for PRN use. Antivert worked well. Denies urinary symptoms. Had UTI with vertigo in the past. Past medical history, appointments, medications, allergies reviewed. Previous Medical History PAST MEDICAL HISTORY Diagnosis Date Alcohol abuse 03/31/2018 ER 03/2017 Cas with alcoholic pancreatitis Alcoholism (HCC) 04/10/2018 Had quit drinking drink in 1995 and had been going to AA. Had a short relapse in 03/2018 Allergic rhinitis 12/15/2006 Balance problems 01/23/2017 Bilateral carotid artery disease (HCC) 01/07/2011 MRA 12/2013 unchanged from that of 2010. US 03/2016 Rt occluded, Lt 20-40% Carcinoma in situ of cervix uteri 2000 Carotid artery stenosis 09/16/2019 CVA (cerebral infarction) 12/2010 Diffuse cystic mastopathy 05/25/2005 Dysarthria 10/26/2020 After Moyamoya surgery 10/07/2020 Dyslipidemia Gastroesophageal reflux disease without esophagitis 03/30/2016 Generalized anxiety disorder Anxiety, Generalized Greater trochanteric bursitis of right hip 04/10/2018 Gross hematuria 11/07/2022 Cystoscopy Neg 10/2022 H/O: CVA (cerebrovascular accident) 09/06/2013 History of chronic pancreatitis 05/25/2005 Resolved after gall bladder removed. Left-sided weakness 01/23/2017 Chronic and residual from CVA 2006. Leg pain, bilateral 09/17/2018 Script given for support socks Major depression 05/25/[address] [facility] 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 Dupont, , fax: [phone] Peripheral arterial disease (HCC) 02/26/2021 Dr. goldstein Positive PPD 09/17/2018 Per [facility] 09/2018, Getting chest x-ray 09/18/2018 and was neg and repeat PPD 01/2019 was neg Slurred speech 01/23/2017 Discussed 17 and MRI was ok. 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 BYPASS GRAFT OTHR,CAROTID 08/14/2010 CONIZATION CERVIX W/WO D&C RPR ELTRD EXC 08/14/2000 LEEP-Cervix DILATION & CURETTAGE DX&/THER NONOBSTETRIC 08/14/1989 Dilation & curettage EDAS (ENCEPHALO RAYNE ARTERIO SYNAGIOSIS) Left 10/07/2020 [facility]: revascularization for Moyamoya disease LAPS SURG CHOLECYSTECTOMY W/CHOLANGIOGRAPHY 04/05/2007 LEXISCAN STRESS TEST 07/23/2020 Negative TONSILLECTOMY PRIMARY/SECONDARY <AGE 13 Tonsillectomy TOTAL ABDOMINAL HYSTERECT W/WO RMVL TUBE OVARY Hysterectomy, NEW/LSO Family History FAMILY HISTORY Problem Relation Age of Onset Hypertension Mother Diabetes Mother Heart Father Diabetes Brother 1/2 brother Patient Allergies ALLERGIES Allergen Reactions Bactrim [Sulfametho* Hives Gabapentin Hives Abilify [Aripiprazo* Other: See Comments cannot sit still and makes anxiety worse. Ambien [Zolpidem] Intolerance Made her jittery Doxycycline Unknown Eggs [Other] Unknown Erythromycin Other: See Comments nausea and lightheadedness Flexeril [Cyclobenz* Other: See Comments dry mouth and drosey. Glucophage [Metform* Other: See Comments Diarrhea, even with XR Lorazepam Mental Status Change Note that helped with panic attacks, but caused anger reaction Metformin Other: See Comments Stomach pain an diarrhea Penicillins Rash Trazodone Intolerance Made her more jittery and anxious Wellbutrin Sr [Bupr* Intolerance Made her aggresssive Zithromax [Azithrom* Rash, Diarrhea, GI Upset However, willign to take for acute bronchitis as it is effective Current Medications Current Outpatient Medications on File Prior to Visit Medication Sig empagliflozin (JARDIANCE) 25 mg tablet Take 1 tablet by mouth once daily. Take 1 tablet once daily in the morning atorvastatin (LIPITOR) 80 mg tablet Take 1 tablet by mouth daily at bedtime. pantoprazole DR (PROTONIX) 40 mg tablet Take 1 tablet by mouth two times a day. Take on empty stomach, 1/2 hr before meal. zonisamide (ZONEGRAN) 25 mg capsule Take 1 capsule by mouth once daily. flash glucose sensor (FREESTYLE JACQUELINE 2 SENSOR) kit 1 Each four times daily. baclofen 10 mg tablet Take 1 tablet by mouth two times a day as needed (muscle spasms). clopidogrel (PLAVIX) 75 mg tablet Take 1 tablet by mouth once daily. dulaglutide (TRULICITY) 0.75 mg/0.5 mL pen injector Inject 0.75 mg subcutaneously one time a week. Inject dose once per week. Discard Pen After glimepiride (AMARYL) 4 mg tablet TAKE ONE TABLETS BY MOUTH ONCE DAILY WITH BREAKFAST albuterol (PROVENTIL) 2.5 mg /3 mL (0.083 %) nebulizer solution Use 3 mL via nebulizer every 4 hours as needed for wheezing/shortness of breath. Use over 5-15minutes. Nebulizer and Compressor For Neb With supplies. Use every 4 hrs as needed. Dx: J45.20 estradiol (ESTRACE) 0.01 % (0.1 mg/gram) vaginal cream Use 0.5g vaginally at bedtime for 2 weeks then 1-3 time/weeks for maintenance. Cholecalciferol, Vitamin D3, 125 mcg (5,000 unit) cap Take 1 capsule by mouth once daily. flash glucose scanning reader (mobiManage JACQUELINE 2 READER) 1 Each four times daily. blood sugar diagnostic (BLOOD GLUCOSE TEST) test strip Test blood sugar(s) 1 times daily. Dx: Other DM Code E11.3219 Insulin: No Lancets lancets Test blood sugar(s) 1 times daily. Dx: Other DM Code E11.3219 Insulin: No blood sugar diagnostic (BLOOD GLUCOSE TEST) test strip Test blood sugar(s) 1 times daily. Dx: Other DM Code E11.3219 Insulin: No Blood-Glucose Sensor (DEXCOM G6 SENSOR) fern Check blood sugar once a day Dx: E11.3219 no insulin lancets (FREESTYLE LANCETS) 28 gauge Test blood sugar(s) 1 times daily. Dx: 250.0. Insulin: No omega-3 fatty acids 1,000 mg cap Take 2 capsules by mouth once daily. clonazePAM (KLONOPIN) 1 mg tablet Take 1 tablet by mouth three times daily as needed for Anxiety. Per QUEtiapine (SEROQUEL) 50 mg tablet Take 1 tablet by mouth daily at bedtime. Per No current facility-administered medications on file prior to visit. Social History Social History Tobacco Use Smoking status: Every Day Packs/day: 1.50 Years: 29.00 Additional pack years: 0.00 Total pack years: 43.50 Types: Cigarettes Smokeless tobacco: Never Vaping Use Vaping Use: Some days Substances: Nicotine, Flavoring Devices: Policard tank Substance Use Topics Alcohol use: No Drug use: No Review of Symptoms REVIEW OF SYSTEMS See HPI EXAM: BP 112/74 Pulse 91 Resp 16 Wt 70.7 kg (155 lb 12.8 oz) SpO2 97% BMI 25.15 kg/m General Appearance: Well appearing, alert, in no acute distress, well-hydrated, well nourished.. Skin: Skin color, texture, turgor normal, no suspicious rashes or lesions. Lungs: Lungs clear to auscultation. No wheezing, rhonchi, rales.. Heart: RRR without murmur, gallop, or rubs. No ectopy. Neurologic: Negative findings: speech normal, mental status intact, cranial nerves 2-12 intact, Romberg negative, muscle tone normal, sensation to light touch and pinprick normal, reflexes normal and symmetric, Positive findings: chronic 4/5 strength in left upper and lower extremities with mild left facial droop. Positive rivas halpike bilaterally, right worse than left. Took less than 5 minutes for dizziness to resolve. Health Maintenance List Hepatitis B Vaccine(1 of 3 - 3-dose series) Never done Colorectal Cancer Screening Never done Mammogram Screening due on 05/06/2020 Lung Cancer Screening Never done Shingrix Vaccine(1 of 2) Never done Dilated Retinal Exam due on 03/31/2023 Diabetic Foot Exam due on 05/16/2023 Covid-19 Vaccine(1) due on 11/15/2023 HbA1C due on 08/04/2023 Urine Albumin:Creatinine Ratio due on 11/15/2023 LDL Cholesterol due on 11/15/2023 Annual PCP Team Chronic Disease Visit due on 06/20/2024 DTaP,Tdap,Td Vaccine(2 - Td or Tdap) due on 10/26/2030 Pneumococcal Vaccine(3 - PPSV23 or PCV20) due on 2036 Spirometry Completed Influenza Vaccine Completed Pap Testing Discontinued HPV Testing Discontinued Hepatitis C Screening Discontinued HIV Screening Discontinued ASSESSMENT/PLAN: 1. BPPV (benign paroxysmal positional vertigo), unspecified laterality - ICD9: 386.11, ICD10: H81.10 Symptoms today consistent with BPPV. Will refill antivert for PRN use and refer to PT for papo maneuvers. Red flags for re-assessment reviewed with patient in detail. - CONSULT TO PHYSICAL THERAPY Yulisa Carrillo MD documented in this encounter [facility] 06-08-2023 Note HNO ID: [id number] Author: Magdaleno Adrian LPN Service: ? Author Type: ? Type: Progress Notes Filed: 06/08/2023 4:03 PM Note Text: Scan on 06/08/2023 5:39 AM by ProviderJayla PA-C: Consultation - Emergency Medicine [facility] 06-08-2023 History of Presen t illness Narrative Scan on 06/08/2023 5:39 AM by ProviderJayla PA-C: Consultation - Emergency Medicine documented in this encounter [facility] 06-06-2023 Note HNO ID: [id number] Author: Rk Hughes MD Service: ? Author Type: Physician Type: Progress Notes Filed: 06/06/2023 3:05 PM Note Text: HISTORY AND PHYSICAL Nara Hernandez Pepito 1970 REFERRING PHYSICIAN: Ran Murphy MD CHIEF COMPLAINT: Consult (Ventral hernia) HPI: Nara is a 52 year old female with a complaint of a bulge and discomfort in her mid abdomen. The patient notes discomfort in this area with lifting and straining. The symptoms have increased, over the past few weeks. The patient notes no symptoms of bowel obstruction and denies nausea or vomiting. The patient was seen by her primary care physician who felt the patient has a hernia. Nara was referred for evaluation and treatment. The patient is being seen by me today at the request of Dr. Ran Murphy MD for my opinion and advice regarding Ventral hernia without obstruction or gangrene Umbilical hernia without obstruction and without gangrene (primary encounter diagnosis). PAST MEDICAL HISTORY Diagnosis Date Alcohol abuse 03/31/2018 ER 03/2017 Cas with alcoholic pancreatitis Alcoholism (HCC) 04/10/2018 Had quit drinking drink in 1995 and had been going to . Had a short relapse in 03/2018 Allergic rhinitis 12/15/2006 Balance problems 01/23/2017 Bilateral carotid artery disease (HCC) 01/07/2011 MRA 12/2013 unchanged from that of 2010. US 03/2016 Rt occluded, Lt 20-40% Carcinoma in situ of cervix uteri 2001 Carotid artery stenosis 09/16/2019 CVA (cerebral infarction) 12/2010 Diffuse cystic mastopathy 05/25/2005 Dysarthria 10/26/2020 After Moyamoya surgery 10/07/2020 Dyslipidemia Gastroesophageal reflux disease without esophagitis 03/30/2016 Generalized anxiety disorder Anxiety, Generalized Greater trochanteric bursitis of right hip 04/10/2018 Gross hematuria 11/07/2022 Cystoscopy Neg 10/2022 H/O: CVA (cerebrovascular accident) 09/06/2013 History of chronic pancreatitis 05/25/2005 Resolved after gall bladder removed. Left-sided weakness 01/23/2017 Chronic and residual from CVA 2006. Leg pain, bilateral 09/17/2018 Script given for support socks Major depression 05/25/[address] [facility] 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 Dupont, , fax: [phone] Peripheral arterial disease (HCC) 02/26/2021 Dr. goldstein Positive PPD 09/17/2018 Per [facility] 09/2018, Getting chest x-ray 09/18/2018 and was neg and repeat PPD 01/2019 was neg Slurred speech 01/23/2017 Discussed [id number] and MRI was ok. Smoker 07/03/2015 Since 14 yo, 1PPD Type 2 diabetes mellitus with mild nonproliferative retinopathy and macular edema, without long-term current use of insulin (HCC) 04/19/2016 Urinary sys symptom NEC 06/16/2006 noted problems with completely emptying bladder since hysterectomy Vitamin D deficiency 03/04/2021 Well adult exam 05/16/2022 Last done: 05/16/2022 PAST SURGICAL HISTORY Procedure Laterality Date 2D ECHO (EXEP) 07/14/2015 EF =63% no valve disease. BYPASS GRAFT OTHR,CAROTID 08/14/2010 CONIZATION CERVIX W/WO DANDC RPR ELTRD EXC 08/14/2000 LEEP-Cervix DILATION AND CURETTAGE DXAND/THER NONOBSTETRIC 08/14/1989 Dilation AND curettage EDAS (ENCEPHALO RAYNE ARTERIO SYNAGIOSIS) Left 10/07/2020 [facility]: revascularization for Moyamoya disease LAPS SURG CHOLECYSTECTOMY W/CHOLANGIOGRAPHY 04/05/2007 LEXISCAN STRESS TEST 07/23/2020 Negative TONSILLECTOMY PRIMARY/SECONDARY Tonsillectomy TOTAL ABDOMINAL HYSTERECT W/WO RMVL TUBE OVARY Hysterectomy, NEW/LSO Current Outpatient Medications Medication Sig empagliflozin (JARDIANCE) 25 mg tablet Take 1 tablet by mouth once daily. Take 1 tablet once daily in the morning atorvastatin (LIPITOR) 80 mg tablet Take 1 tablet by mouth daily at bedtime. pantoprazole DR (PROTONIX) 40 mg tablet Take 1 tablet by mouth two times a day. Take on empty stomach, 1/2 hr before meal. zonisamide (ZONEGRAN) 25 mg capsule Take 1 capsule by mouth once daily. flash glucose sensor (FREESTYLE JACQUELINE 2 SENSOR) kit 1 Each four times daily. baclofen 10 mg tablet Take 1 tablet by mouth two times a day as needed (muscle spasms). clopidogrel (PLAVIX) 75 mg tablet Take 1 tablet by mouth once daily. dulaglutide (TRULICITY) 0.75 mg/0.5 mL pen injector Inject 0.75 mg subcutaneously one time a week. Inject dose once per week. Discard Pen After glimepiride (AMARYL) 4 mg tablet TAKE ONE TABLETS BY MOUTH ONCE DAILY WITH BREAKFAST albuterol (PROVENTIL) 2.5 mg /3 mL (0.083 %) nebulizer solution Use 3 mL via nebulizer every 4 hours as needed for wheezing/shortness of breath. Use over 5-15minutes. Nebulizer and Compressor For Neb With supplies. Use every 4 hrs a (more content not included)... [facility] 06-06-2023 History of Presen t illness Narrative HISTORY AND PHYSICAL Nara Beyer 1970 REFERRING PHYSICIAN: Ran Murphy MD CHIEF COMPLAINT: Consult (Ventral hernia) HPI: Nara is a 52 year old female with a complaint of a bulge and discomfort in her mid abdomen. The patient notes discomfort in this area with lifting and straining. The symptoms have increased, over the past few weeks. The patient notes no symptoms of bowel obstruction and denies nausea or vomiting. The patient was seen by her primary care physician who felt the patient has a hernia. Nara was referred for evaluation and treatment. The patient is being seen by me today at the request of Dr. Ran Murphy MD for my opinion and advice regarding Ventral hernia without obstruction or gangrene Umbilical hernia without obstruction and without gangrene (primary encounter diagnosis). PAST MEDICAL HISTORY Diagnosis Date Alcohol abuse 03/31/2018 ER 03/2017 Cas with alcoholic pancreatitis Alcoholism (HCC) 04/10/2018 Had quit drinking drink in 1995 and had been going to AA. Had a short relapse in 03/2018 Allergic rhinitis 12/15/2006 Balance problems 01/23/2017 Bilateral carotid artery disease (HCC) 01/07/2011 MRA 12/2013 unchanged from that of 2010. US 03/2016 Rt occluded, Lt 20-40% Carcinoma in situ of cervix uteri 2000 Carotid artery stenosis 09/16/2019 CVA (cerebral infarction) 12/2010 Diffuse cystic mastopathy 05/25/2005 Dysarthria 10/26/2020 After Moyamoya surgery 10/07/2020 Dyslipidemia Gastroesophageal reflux disease without esophagitis 03/30/2016 Generalized anxiety disorder Anxiety, Generalized Greater trochanteric bursitis of right hip 04/10/2018 Gross hematuria 11/07/2022 Cystoscopy Neg 10/2022 H/O: CVA (cerebrovascular accident) 09/06/2013 History of chronic pancreatitis 05/25/2005 Resolved after gall bladder removed. Left-sided weakness 01/23/2017 Chronic and residual from CVA 2006. Leg pain, bilateral 09/17/2018 Script given for support socks Major depression 05/25/[address] [facility] 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 Dupont, , fax: [phone] Peripheral arterial disease (HCC) 02/26/2021 Dr. goldstein Positive PPD 09/17/2018 Per [facility] 09/2018, Getting chest x-ray 09/18/2018 and was neg and repeat PPD 01/2019 was neg Slurred speech 01/23/2017 Discussed and MRI was ok. Smoker 07/03/2015 Since 14 yo, 1PPD Type 2 diabetes mellitus with mild nonproliferative retinopathy and macular edema, without long-term current use of insulin (HCC) 04/19/2016 Urinary sys symptom NEC 06/16/2006 noted problems with completely emptying bladder since hysterectomy Vitamin D deficiency 03/04/2021 Well adult exam 05/16/2022 Last done: 05/16/2022 PAST SURGICAL HISTORY Procedure Laterality Date 2D ECHO (EXEP) 07/14/2015 EF =63% no valve disease. BYPASS GRAFT OTHR,CAROTID 08/14/2010 CONIZATION CERVIX W/WO D&C RPR ELTRD EXC 08/14/2000 LEEP-Cervix DILATION & CURETTAGE DX&/THER NONOBSTETRIC 08/14/1989 Dilation & curettage EDAS (ENCEPHALO RAYNE ARTERIO SYNAGIOSIS) Left 10/07/2020 [facility]: revascularization for Moyamoya disease LAPS SURG CHOLECYSTECTOMY W/CHOLANGIOGRAPHY 04/05/2007 LEXISCAN STRESS TEST 07/23/2020 Negative TONSILLECTOMY PRIMARY/SECONDARY <AGE 13 Tonsillectomy TOTAL ABDOMINAL HYSTERECT W/WO RMVL TUBE OVARY Hysterectomy, NEW/LSO Current Outpatient Medications Medication Sig empagliflozin (JARDIANCE) 25 mg tablet Take 1 tablet by mouth once daily. Take 1 tablet once daily in the morning atorvastatin (LIPITOR) 80 mg tablet Take 1 tablet by mouth daily at bedtime. pantoprazole DR (PROTONIX) 40 mg tablet Take 1 tablet by mouth two times a day. Take on empty stomach, 1/2 hr before meal. zonisamide (ZONEGRAN) 25 mg capsule Take 1 capsule by mouth once daily. flash glucose sensor (FREESTYLE JACQUELINE 2 SENSOR) kit 1 Each four times daily. baclofen 10 mg tablet Take 1 tablet by mouth two times a day as needed (muscle spasms). clopidogrel (PLAVIX) 75 mg tablet Take 1 tablet by mouth once daily. dulaglutide (TRULICITY) 0.75 mg/0.5 mL pen injector Inject 0.75 mg subcutaneously one time a week. Inject dose once per week. Discard Pen After glimepiride (AMARYL) 4 mg tablet TAKE ONE TABLETS BY MOUTH ONCE DAILY WITH BREAKFAST albuterol (PROVENTIL) 2.5 mg /3 mL (0.083 %) nebulizer solution Use 3 mL via nebulizer every 4 hours as needed for wheezing/shortness of breath. Use over 5-15minutes. Nebulizer and Compressor For Neb With supplies. Use every 4 hrs as needed. Dx: J45.20 estradiol (ESTRACE) 0.01 % (0.1 mg/gram) vaginal cream Use 0.5g vaginally at bedtime for 2 weeks then 1-3 time/weeks for maintenance. Cholecalciferol, Vitamin D3, 125 mcg (5,000 unit) cap Take 1 capsule by mouth once daily. flash glucose scanning reader (Gen9STYLE JACQUELINE 2 READER) 1 Each four times daily. blood sugar diagnostic (BLOOD GLUCOSE TEST) test strip Test blood sugar(s) 1 times daily. Dx: Other DM Code E11.3219 Insulin: No Lancets lancets Test blood sugar(s) 1 times daily. Dx: Other DM Code E11.3219 Insulin: No blood sugar diagnostic (BLOOD GLUCOSE TEST) test strip Test blood sugar(s) 1 times daily. Dx: Other DM Code E11.3219 Insulin: No Blood-Glucose Sensor (DEXCOM G6 SENSOR) fern Check blood sugar once a day Dx: E11.3219 no insulin lancets (FREESTYLE LANCETS) 28 gauge Test blood sugar(s) 1 times daily. Dx: 250.0. Insulin: No omega-3 fatty acids 1,000 mg cap Take 2 capsules by mouth once daily. clonazePAM (KLONOPIN) 1 mg tablet Take 1 tablet by mouth three times daily as needed for Anxiety. Per QUEtiapine (SEROQUEL) 50 mg tablet Take 1 tablet by mouth daily at bedtime. Per No current facility-administered medications for this visit. ALLERGIES: Bactrim [Sulfamethoxazole], Gabapentin, Abilify [Aripiprazole], Ambien [Zolpidem], Doxycycline, Eggs [Other], Erythromycin, Flexeril [Cyclobenzaprine], Glucophage [Metformin Hcl], Lorazepam, Metformin, Penicillins, Trazodone, Wellbutrin Sr [Bupropion Hcl], and Zithromax [Azithromycin] PERSONAL HISTORY: Social History Tobacco Use Smoking status: Every Day Packs/day: 1.50 Years: 29.00 Additional pack years: 0.00 Total pack years: 43.50 Types: Cigarettes Smokeless tobacco: Never Vaping Use Vaping Use: Some days Substances: Nicotine, Flavoring Devices: Policard tank Substance Use Topics Alcohol use: No Drug use: No FAMILY HISTORY: FAMILY HISTORY Problem Relation Age of Onset Hypertension Mother Diabetes Mother Heart Father Diabetes Brother 1/2 brother REVIEW OF SYMPTOMS: The review of systems data was entered by the nurse and reviewed by me Nursing Notes: Marc KayleighASH terry 06/06/2023 2:54 PM Signed REVIEW OF SYSTEMS: General: The patient NOTES fatigue, denies weight loss, denies weight gain, denies feeling hot, and denies feelings of cold. Eyes: The patient denies glaucoma, denies eye injury/surgery, wears glasses or contacts. Ear/Nose/Throat: The patient NOTES allergies, NOTES hayfever, denies ear infections, and denies bloody noses. Cardiovascular: The patient denies chest pain, denies heart disease, NOTES high blood pressure,denies cardiac stent, denies prior heart attack, denies irregular heart beat, NOTES high cholesterol, denies poor circulation, denies heart failure, other cardiac issues, denies claudication, denies cold feet, denies peripheral arterial stent. Respiratory: The patient denies tuberculosis, denies pneumonia, denies frequent cough, denies pulmonary embolism, denies shortness of breath, and denies coughing up blood. Gastrointestinal: The patient NOTES difficulty swallowing, NOTES acid reflux, denies ulcers, denies vomiting, denies jaundice/hepatitis, NOTES gallbladder problems, denies black or tarry stools, denies hemorrhoids, denies bleeding from rectum, denies diverticulitis, NOTES constipation, NOTES diarrhea, denies loss of stool control, and NOTES hernias. Kidney/Bladder: The patient denies kidney stones, denies urine infections, and denies bloody urine. Skin: The patient denies a history of skin cancer, denies bleeding/changing moles, and denies a history of skin rash. Neurologic: The patient NOTES a history of epilepsy/convulsions, NOTES headaches, denies head/spinal injuries, and NOTES stroke/TIA. Psychiatric: The patient NOTES psychiatric medications, NOTES depression, and denies voices, denies substance abuse. Endocrine: The patient denies thyroid disorders, NOTES diabetes, and NOTES hormonal problems. Hematologic: The patient denies a history of bruising, denies bleeding, and denies anemia, denies blood clots. Infections: The patient denies a history of measles and mumps, denies rheumatic fever, and denies sexually transmitted diseases. Musculoskeletal: The patient NOTES back pain/injury, NOTES back problems, denies sciatica, denies knee/foot trouble, denies arthritis, or NOTES gout. When was patient's last Mammogram screening? 2020 Last Colonoscopy: NO PRIOR COLONOSCOPY Kayleigh Tran LPN PHYSICAL EXAMINATION: General: The patient is 52 year old female, well nourished, well hydrated in no acute distress. The patient is oriented to time, place, and person. VITALS: Blood pressure 134/82, pulse 98, temperature 36.6 C (97.8 F), height 167.6 cm (5' 6 ), weight 70.1 kg (154 lb 9.6 oz), SpO2 99 %. Body mass index is 24.95 kg/m . HEENT: Normal cephalic, ataumatic, pupils are equally round, sclera are anicteric, mucous membranes are moist, oropharynx is clear. Neck has no masses, asymmetry or lymphadenopathy. Thyroid is unremarkable. Respiratory: Clear to auscultation and percussion. Normal respiratory excursion and pattern. Cardiac: Examination is regular rate and rhythm. Abdominal exam: Soft, nontender, with no palpable masses. No hepatosplenomegaly. A moderate reducible ventral hernia nonpalpable umbilical hernia Rectal exam: exam deferred Extremities: no clubbing, cyanosis or edema. No adenopathy. Other: LABORATORY VALUES: As Noted RADIOLOGIC STUDIES: As Noted Assessment IMPRESSION: Ventral hernia without obstruction or gangrene Umbilical hernia without obstruction and without gangrene (primary encounter diagnosis) PLAN: Given the overall comorbidities of this patient I think she is going to be better served to have some form of robotic ventral hernia repair in conjunction with an umbilical hernia repair. I do not think it is in her best interest to do this in an open fashion and I am going to refer her to the main campus. My findings have been communicated to Dr. Ran Murphy MD via shared medical record. This note will be forwarded to Dr. Ran Murphy MD. Diagnoses: (K42.9) Umbilical hernia without obstruction and without gangrene (primary encounter diagnosis) (K43.9) Ventral hernia without obstruction or gangrene Patient weight: Blood pressure 134/82, pulse 98, temperature 36.6 C (97.8 F), height 167.6 cm (5' 6 ), weight 70.1 kg (154 lb 9.6 oz), SpO2 99 %. BMI: Body mass index is 24.95 kg/m . Return to Clinic: The patient is instructed to follow-up with me as needed. Rk Hughes III, MD documented in this encounter [facility] 06-06-2023 Nurse Note REVIEW OF SYSTEMS: General: The patient NOTES fatigue, denies weight loss, denies weight gain, denies feeling hot, and denies feelings of cold. Eyes: The patient denies glaucoma, denies eye injury/surgery, wears glasses or contacts. Ear/Nose/Throat: The patient NOTES allergies, NOTES hayfever, denies ear infections, and denies bloody noses. Cardiovascular: The patient denies chest pain, denies heart disease, NOTES high blood pressure,denies cardiac stent, denies prior heart attack, denies irregular heart beat, NOTES high cholesterol, denies poor circulation, denies heart failure, other cardiac issues, denies claudication, denies cold feet, denies peripheral arterial stent. Respiratory: The patient denies tuberculosis, denies pneumonia, denies frequent cough, denies pulmonary embolism, denies shortness of breath, and denies coughing up blood. Gastrointestinal: The patient NOTES difficulty swallowing, NOTES acid reflux, denies ulcers, denies vomiting, denies jaundice/hepatitis, NOTES gallbladder problems, denies black or tarry stools, denies hemorrhoids, denies bleeding from rectum, denies diverticulitis, NOTES constipation, NOTES diarrhea, denies loss of stool control, and NOTES hernias. Kidney/Bladder: The patient denies kidney stones, denies urine infections, and denies bloody urine. Skin: The patient denies a history of skin cancer, denies bleeding/changing moles, and denies a history of skin rash. Neurologic: The patient NOTES a history of epilepsy/convulsions, NOTES headaches, denies head/spinal injuries, and NOTES stroke/TIA. Psychiatric: The patient NOTES psychiatric medications, NOTES depression, and denies voices, denies substance abuse. Endocrine: The patient denies thyroid disorders, NOTES diabetes, and NOTES hormonal problems. Hematologic: The patient denies a history of bruising, denies bleeding, and denies anemia, denies blood clots. Infections: The patient denies a history of measles and mumps, denies rheumatic fever, and denies sexually transmitted diseases. Musculoskeletal: The patient NOTES back pain/injury, NOTES back problems, denies sciatica, denies knee/foot trouble, denies arthritis, or NOTES gout. When was patient's last Mammogram screening? 2020 Last Colonoscopy: NO PRIOR COLONOSCOPY Kayleigh Tran LPN documented in this encounter [facility] 06-05-2023 Note HNO ID: [id number] Author: Ran Murphy MD Service: ? Author Type: Physician Type: Progress Notes Filed: 06/05/2023 10:15 PM Note Text: Chief Complaint No chief complaint on file. HPI Nara Beyer is a 52 year old female who presents here today for hernia. Patient has had abdominal hernia for a while but has been noticing more pain and size increase over the last 2 months. Patient has been to [facility] twice for it. Patient does have nausea; no vomiting or diarrhea. No bloody stools. Past medical history, appointments, medications, allergies reviewed. Previous Medical History PAST MEDICAL HISTORY Diagnosis Date Alcohol abuse 03/31/2018 ER 03/2017 [place] with alcoholic pancreatitis Alcoholism (HCC) 04/10/2018 Had quit drinking drink in 1995 and had been going to . Had a short relapse in 03/2018 Allergic rhinitis 12/15/2006 Balance problems 01/23/2017 Bilateral carotid artery disease (HCC) 01/07/2011 MRA 12/2013 unchanged from that of 2010. US 03/2016 Rt occluded, Lt 20-40% Carcinoma in situ of cervix uteri 2001 Carotid artery stenosis 09/16/2019 CVA (cerebral infarction) 12/2010 Diffuse cystic mastopathy 05/25/2005 Dysarthria 10/26/2020 After Moyamoya surgery 10/07/2020 Dyslipidemia Gastroesophageal reflux disease without esophagitis 03/30/2016 Generalized anxiety disorder Anxiety, Generalized Greater trochanteric bursitis of right hip 04/10/2018 Gross hematuria 11/07/2022 Cystoscopy Neg 10/2022 H/O: CVA (cerebrovascular accident) 09/06/2013 History of chronic pancreatitis 05/25/2005 Resolved after gall bladder removed. Left-sided weakness 01/23/2017 Chronic and residual from CVA 2006. Leg pain, bilateral 09/17/2018 Script given for support socks Major depression 05/25/[address] [facility]. 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 Dupont, , fax: [phone] Peripheral arterial disease (HCC) 02/26/2021 Dr. goldstein Positive PPD 09/17/2018 Per [facility] 09/2018, Getting chest x-ray 09/18/2018 and was neg and repeat PPD 01/2019 was neg Slurred speech 01/23/2017 Discussed and MRI was ok. 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 BYPASS GRAFT OTHR,CAROTID 08/14/2010 CONIZATION CERVIX W/WO DANDC RPR ELTRD EXC 08/14/2000 LEEP-Cervix DILATION AND CURETTAGE DXAND/THER NONOBSTETRIC 08/14/1989 Dilation AND curettage EDAS (ENCEPHALO RAYNE ARTERIO SYNAGIOSIS) Left 10/07/2020 [facility]: revascularization for Moyamoya disease LAPS SURG CHOLECYSTECTOMY W/CHOLANGIOGRAPHY 04/05/2007 LEXISCAN STRESS TEST 07/23/2020 Negative TONSILLECTOMY PRIMARY/SECONDARY Tonsillectomy TOTAL ABDOMINAL HYSTERECT W/WO RMVL TUBE OVARY Hysterectomy, NEW/LSO Family History FAMILY HISTORY Problem Relation Age of Onset Hypertension Mother Diabetes Mother Heart Father Diabetes Brother 1/2 brother Patient Allergies ALLERGIES Allergen Reactions Bactrim [Sulfametho* Hives Gabapentin Hives Doxycycline Unknown Abilify [Aripiprazo* Other: See Comments cannot sit still and makes anxiety worse. Ambien [Zolpidem] Intolerance Made her jittery Eggs [Other] Unknown Erythromycin Other: See Comments nausea and lightheadedness Flexeril [Cyclobenz* Other: See Comments dry mouth and drosey. Glucophage [Metform* Other: See Comments Diarrhea, even with XR Lorazepam Mental Status Change Note that helped with panic attacks, but caused anger reaction Metformin Other: See Comments Stomach pain an diarrhea Penicillins Rash Trazodone Intolerance Made her more jittery and anxious Wellbutrin Sr [Bupr* Intolerance Made her aggresssive Zithromax [Azithrom* Rash, Diarrhea, GI Upset However, willign to take for acute bronchitis as it is effective Current Medications Current Outpatient Medications on File Prior to Visit Medication Sig clopidogrel (PLAVIX) 75 mg tablet Take 1 tablet by mouth once daily. dulaglutide (TRULICITY) 0.75 mg/0.5 mL pen injector Inject 0.75 mg subcutaneously one time a week. Inject dose once per week. Discard Pen After glimepiride (AMARYL) 4 mg tablet TAKE ONE TABLETS BY MOUTH ONCE DAILY WITH BREAKFAST albuterol (PROVENTIL) 2.5 mg /3 mL (0.083 %) nebulizer solution Use 3 mL v (more content not included)... [facility] 06-05-2023 History of Presen t illness Narrative Chief Complaint No chief complaint on file. HPI Nara Beyer is a 52 year old female who presents here today for hernia. Patient has had abdominal hernia for a while but has been noticing more pain and size increase over the last 2 months. Patient has been to [facility] hospital twice for it. Patient does have nausea; no vomiting or diarrhea. No bloody stools. Past medical history, appointments, medications, allergies reviewed. Previous Medical History PAST MEDICAL HISTORY Diagnosis Date Alcohol abuse 03/31/2018 ER 03/2017 [place] with alcoholic pancreatitis Alcoholism (HCC) 04/10/2018 Had quit drinking drink in 1995 and had been going to AA. Had a short relapse in 03/2018 Allergic rhinitis 12/15/2006 Balance problems 01/23/2017 Bilateral carotid artery disease (HCC) 01/07/2011 MRA 12/2013 unchanged from that of 2010. US 03/2016 Rt occluded, Lt 20-40% Carcinoma in situ of cervix uteri 2001 Carotid artery stenosis 09/16/2019 CVA (cerebral infarction) 12/2010 Diffuse cystic mastopathy 05/25/2005 Dysarthria 10/26/2020 After Moyamoya surgery 10/07/2020 Dyslipidemia Gastroesophageal reflux disease without esophagitis 03/30/2016 Generalized anxiety disorder Anxiety, Generalized Greater trochanteric bursitis of right hip 04/10/2018 Gross hematuria 11/07/2022 Cystoscopy Neg 10/2022 H/O: CVA (cerebrovascular accident) 09/06/2013 History of chronic pancreatitis 05/25/2005 Resolved after gall bladder removed. Left-sided weakness 01/23/2017 Chronic and residual from CVA 2006. Leg pain, bilateral 09/17/2018 Script given for support socks Major depression 05/25/[address] [facility]. 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 Dupont, , fax: [phone] Peripheral arterial disease (HCC) 02/26/2021 Dr. goldstein Positive PPD 09/17/2018 Per Med Pro 09/2018, Getting chest x-ray 09/18/2018 and was neg and repeat PPD 01/2019 was neg Slurred speech 01/23/2017 Discussed [id number] and MRI was ok. 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 BYPASS GRAFT OTHR,CAROTID 08/14/2010 CONIZATION CERVIX W/WO D&C RPR ELTRD EXC 08/14/2000 LEEP-Cervix DILATION & CURETTAGE DX&/THER NONOBSTETRIC 08/14/1989 Dilation & curettage EDAS (ENCEPHALO RAYNE ARTERIO SYNAGIOSIS) Left 10/07/2020 [facility]: revascularization for Moyamoya disease LAPS SURG CHOLECYSTECTOMY W/CHOLANGIOGRAPHY 04/05/2007 LEXISCAN STRESS TEST 07/23/2020 Negative TONSILLECTOMY PRIMARY/SECONDARY <AGE 12 Tonsillectomy TOTAL ABDOMINAL HYSTERECT W/WO RMVL TUBE OVARY Hysterectomy, NEW/LSO Family History FAMILY HISTORY Problem Relation Age of Onset Hypertension Mother Diabetes Mother Heart Father Diabetes Brother 1/2 brother Patient Allergies ALLERGIES Allergen Reactions Bactrim [Sulfametho* Hives Gabapentin Hives Doxycycline Unknown Abilify [Aripiprazo* Other: See Comments cannot sit still and makes anxiety worse. Ambien [Zolpidem] Intolerance Made her jittery Eggs [Other] Unknown Erythromycin Other: See Comments nausea and lightheadedness Flexeril [Cyclobenz* Other: See Comments dry mouth and drosey. Glucophage [Metform* Other: See Comments Diarrhea, even with XR Lorazepam Mental Status Change Note that helped with panic attacks, but caused anger reaction Metformin Other: See Comments Stomach pain an diarrhea Penicillins Rash Trazodone Intolerance Made her more jittery and anxious Wellbutrin Sr [Bupr* Intolerance Made her aggresssive Zithromax [Azithrom* Rash, Diarrhea, GI Upset However, willign to take for acute bronchitis as it is effective Current Medications Current Outpatient Medications on File Prior to Visit Medication Sig clopidogrel (PLAVIX) 75 mg tablet Take 1 tablet by mouth once daily. dulaglutide (TRULICITY) 0.75 mg/0.5 mL pen injector Inject 0.75 mg subcutaneously one time a week. Inject dose once per week. Discard Pen After glimepiride (AMARYL) 4 mg tablet TAKE ONE TABLETS BY MOUTH ONCE DAILY WITH BREAKFAST albuterol (PROVENTIL) 2.5 mg /3 mL (0.083 %) nebulizer solution Use 3 mL via nebulizer every 4 hours as needed for wheezing/shortness of breath. Use over 5-15minutes. estradiol (ESTRACE) 0.01 % (0.1 mg/gram) vaginal cream Use 0.5g vaginally at bedtime for 2 weeks then 1-3 time/weeks for maintenance. Cholecalciferol, Vitamin D3, 125 mcg (5,000 unit) cap Take 1 capsule by mouth once daily. flash glucose scanning reader (FREESTYLE JACQUELINE 2 READER) 1 Each four times daily. empagliflozin (JARDIANCE) 25 mg tablet Take 1 tablet by mouth once daily. Take 1 tablet once daily in the morning atorvastatin (LIPITOR) 80 mg tablet Take 1 tablet by mouth daily at bedtime. pantoprazole DR (PROTONIX) 40 mg tablet Take 1 tablet by mouth twice daily. Take on empty stomach, 1/2 hr before meal. zonisamide (ZONEGRAN) 25 mg capsule Take 1 capsule by mouth once daily. blood sugar diagnostic (BLOOD GLUCOSE TEST) test strip Test blood sugar(s) 1 times daily. Dx: Other DM Code E11.3219 Insulin: No blood sugar diagnostic (BLOOD GLUCOSE TEST) test strip Test blood sugar(s) 1 times daily. Dx: Other DM Code E11.3219 Insulin: No lancets (FREESTYLE LANCETS) 28 gauge Test blood sugar(s) 1 times daily. Dx: 250.0. Insulin: No omega-3 fatty acids 1,000 mg cap Take 2 capsules by mouth once daily. clonazePAM (KLONOPIN) 1 mg tablet Take 1 tablet by mouth three times daily as needed for Anxiety. Per QUEtiapine (SEROQUEL) 50 mg tablet Take 1 tablet by mouth daily at bedtime. Per Nebulizer and Compressor For Neb With supplies. Use every 4 hrs as needed. Dx: J45.20 flash glucose sensor (FREESTYLE JACQUELINE 2 SENSOR) kit 1 Each four times daily. Lancets lancets Test blood sugar(s) 1 times daily. Dx: Other DM Code E11.3219 Insulin: No baclofen (LIORESAL) 10 mg tablet Take 1 tablet by mouth twice daily as needed (muscle spasms). (Patient not taking: Reported on 06/05/2023) Blood-Glucose Sensor (DEXCOM G6 SENSOR) fern Check blood sugar once a day Dx: E11.3219 no insulin No current facility-administered medications on file prior to visit. Social History Social History Tobacco Use Smoking status: Every Day Packs/day: 1.50 Years: 29.00 Additional pack years: 0.00 Total pack years: 43.50 Types: Cigarettes Smokeless tobacco: Never Vaping Use Vaping Use: Some days Substances: Nicotine, Flavoring Devices: Refillable tank Substance Use Topics Alcohol use: No Drug use: No Review of Symptoms REVIEW OF SYSTEMS See HPI EXAM: BP 140/94 (BP Site: Left Arm, BP Position: Sitting, BP Cuff Size: Regular Adult) Pulse 76 Resp 16 Wt 70.3 kg (155 lb) BMI 25.02 kg/m General Appearance: Well appearing, alert, in no acute distress, well-hydrated, well nourished.. Abdomen: Abdomen soft, with visibly appreciated hernia proximal to the umbilicus. This area is soft but tender. Bowel sounds normal. No masses, organomegaly. Health Maintenance List Hepatitis B Vaccine(1 of 3 - 3-dose series) Never done Colorectal Cancer Screening Never done Mammogram Screening due on 05/06/2020 Lung Cancer Screening Never done Shingrix Vaccine(1 of 2) Never done Dilated Retinal Exam due on 03/31/2023 Influenza Vaccine(1) due on 04/14/2023 Diabetic Foot Exam due on 05/16/2023 Covid-19 Vaccine(1) due on 11/15/2023 HbA1C due on 08/04/2023 Urine Albumin:Creatinine Ratio due on 11/15/2023 LDL Cholesterol due on 11/15/2023 Annual PCP Team Chronic Disease Visit due on 05/05/2024 DTaP,Tdap,Td Vaccine(2 - Td or Tdap) due on 10/26/2030 Pneumococcal Vaccine(3 - PPSV23 or PCV20) due on 2036 Spirometry Completed Pap Testing Discontinued HPV Testing Discontinued Hepatitis C Screening Discontinued HIV Screening Discontinued Data reviewed A/P ASSESSMENT/PLAN: 1. Ventral hernia without obstruction or gangrene - ICD9: 553.20, ICD10: K43.9 (primary diagnosis) - CONSULT TO GENERAL SURGERY: Dr. Nunez 2. Encounter for immunization - ICD9: V03.89, ICD10: Z23 - INFLUENZA VACCINE, AGE 6 MO - 64 YR, QUADRIVALENT (AFLURIA, FLULAVAL, FLUZONE) Patient was asked at end of visit if they had any questions or input regarding the plan of care we had discussed. Ran Murphy MD documented in this encounter [facility] 05-08-2023 Miscellaneous Notes Patient notified and scheduled Sienna Higgins Cma Please let patient know her labs show significantly worsening control on her diabetes. I have sent in a prescription for an injectable medication called Trulicity. This is a once a week medication. I want her to take the medication once weekly for next 3 months and follow up with me in office. documented in this encounter [facility] 05-05-2023 Note HNO ID: [id number] Author: Oziel Chandler APRN.JENN Service: ? Author Type: Nurse Practitioner Type: Progress Notes Filed: 05/05/2023 1:43 PM Note Text: Chief Complaint Patient presents with: ED Follow-up HPI Nara Beyer is a 52 year old female who presents here today for Above Complaints.. Patient presents for ER follow up. Patient reports she had been urinating more frequently and went to ER as she though she had a UTI. Patient was found to have BS in 400's. Patient previous Hgb A1c was 6.2 in November. Patient reports she is taking all her medications as prescribed. Past medical history, appointments, medications, allergies reviewed. Previous Medical History PAST MEDICAL HISTORY Diagnosis Date Alcohol abuse 03/31/2018 ER 03/2017 [place] with alcoholic pancreatitis Alcoholism (HCC) 04/10/2018 Had quit drinking drink in 1995 and had been going to AA. Had a short relapse in 03/2018 Allergic rhinitis 12/15/2006 Balance problems 01/23/2017 Bilateral carotid artery disease (HCC) 01/07/2011 MRA 12/2013 unchanged from that of 2010. US 03/2016 Rt occluded, Lt 20-40% Carcinoma in situ of cervix uteri 2000 Carotid artery stenosis 09/16/2019 CVA (cerebral infarction) 12/2010 Diffuse cystic mastopathy 05/25/2005 Dysarthria 10/26/2020 After Moyamoya surgery 10/07/2020 Dyslipidemia Gastroesophageal reflux disease without esophagitis 03/30/2016 Generalized anxiety disorder Anxiety, Generalized Greater trochanteric bursitis of right hip 04/10/2018 Gross hematuria 11/07/2022 Cystoscopy Neg 10/2022 H/O: CVA (cerebrovascular accident) 09/06/2013 History of chronic pancreatitis 05/25/2005 Resolved after gall bladder removed. Left-sided weakness 01/23/2017 Chronic and residual from CVA 2006. Leg pain, bilateral 09/17/2018 Script given for support socks Major depression 05/25/[address] [facility] 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 Dupont, , fax: [phone] Peripheral arterial disease (HCC) 02/26/2021 Dr. goldstein Positive PPD 09/17/2018 Per [facility] 09/2018, Getting chest x-ray 09/18/2018 and was neg and repeat PPD 01/2019 was neg Slurred speech 01/23/2017 Discussed and MRI was ok. 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 BYPASS GRAFT OTHR,CAROTID 08/14/2010 CONIZATION CERVIX W/WO DANDC RPR ELTRD EXC 08/14/2000 LEEP-Cervix DILATION AND CURETTAGE DXAND/THER NONOBSTETRIC 08/14/1989 Dilation AND curettage EDAS (ENCEPHALO RAYNE ARTERIO SYNAGIOSIS) Left 10/07/2020 [facility]: revascularization for Moyamoya disease LAPS SURG CHOLECYSTECTOMY W/CHOLANGIOGRAPHY 04/05/2007 LEXISCAN STRESS TEST 07/23/2020 Negative TONSILLECTOMY PRIMARY/SECONDARY Tonsillectomy TOTAL ABDOMINAL HYSTERECT W/WO RMVL TUBE OVARY Hysterectomy, NEW/LSO Family History FAMILY HISTORY Problem Relation Age of Onset Hypertension Mother Diabetes Mother Heart Father Diabetes Brother 1/2 brother Patient Allergies ALLERGIES Allergen Reactions Bactrim [Sulfametho* Hives Gabapentin Hives Doxycycline Unknown Abilify [Aripiprazo* Other: See Comments cannot sit still and makes anxiety worse. Ambien [Zolpidem] Intolerance Made her jittery Eggs [Other] Unknown Erythromycin Other: See Comments nausea and lightheadedness Flexeril [Cyclobenz* Other: See Comments dry mouth and drosey. Glucophage [Metform* Other: See Comments Diarrhea, even with XR Lorazepam Mental Status Change Note that helped with panic attacks, but caused anger reaction Metformin Other: See Comments Stomach pain an diarrhea Penicillins Rash Trazodone Intolerance Made her more jittery and anxious Wellbutrin Sr [Bupr* Intolerance Made her aggresssive Zithromax [Azithrom* Rash, Diarrhea, GI Upset However, willign to take for acute bronchitis as it is effective Current Medications Current Outpatient Medications on File Prior to Visit Medication Sig BORIC ACID 600 MG VAGINAL SUPPOSITORY Use 1 Suppository vaginally daily at bedtime for 14 days. USE ONLY IN YOUR VAGINA albuterol (PROVENTIL) 2.5 mg /3 mL (0.083 %) nebulizer solution Use 3 mL via nebulizer every 4 hours as needed for wheezing/shortness of breath. Use over 5-15minutes. Nebulize (more content not included)... [facility] 05-05-2023 History of Presen t illness Narrative Chief Complaint Patient presents with: ED Follow-up HPI Nara Beyer is a 52 year old female who presents here today for Above Complaints.. Patient presents for ER follow up. Patient reports she had been urinating more frequently and went to ER as she though she had a UTI. Patient was found to have BS in 400's. Patient previous Hgb A1c was 6.2 in November. Patient reports she is taking all her medications as prescribed. Past medical history, appointments, medications, allergies reviewed. Previous Medical History PAST MEDICAL HISTORY Diagnosis Date Alcohol abuse 03/31/2018 ER 03/2017 [place] with alcoholic pancreatitis Alcoholism (HCC) 04/10/2018 Had quit drinking drink in 1995 and had been going to AA. Had a short relapse in 03/2018 Allergic rhinitis 12/15/2006 Balance problems 01/23/2017 Bilateral carotid artery disease (HCC) 01/07/2011 MRA 12/2013 unchanged from that of 2010. US 03/2016 Rt occluded, Lt 20-40% Carcinoma in situ of cervix uteri 2000 Carotid artery stenosis 09/16/2019 CVA (cerebral infarction) 12/2010 Diffuse cystic mastopathy 05/25/2005 Dysarthria 10/26/2020 After Moyamoya surgery 10/07/2020 Dyslipidemia Gastroesophageal reflux disease without esophagitis 03/30/2016 Generalized anxiety disorder Anxiety, Generalized Greater trochanteric bursitis of right hip 04/10/2018 Gross hematuria 11/07/2022 Cystoscopy Neg 10/2022 H/O: CVA (cerebrovascular accident) 09/06/2013 History of chronic pancreatitis 05/25/2005 Resolved after gall bladder removed. Left-sided weakness 01/23/2017 Chronic and residual from CVA 2006. Leg pain, bilateral 09/17/2018 Script given for support socks Major depression 05/25/[address] [facility] 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 Dupont, , fax: [phone] Peripheral arterial disease (HCC) 02/26/2021 Dr. goldstein Positive PPD 09/17/2018 Per [facility] 09/2018, Getting chest x-ray 09/18/2018 and was neg and repeat PPD 01/2019 was neg Slurred speech 01/23/2017 Discussed and MRI was ok. 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 BYPASS GRAFT OTHR,CAROTID 08/14/2010 CONIZATION CERVIX W/WO D&C RPR ELTRD EXC 08/14/2000 LEEP-Cervix DILATION & CURETTAGE DX&/THER NONOBSTETRIC 08/14/1989 Dilation & curettage EDAS (ENCEPHALO RAYNE ARTERIO SYNAGIOSIS) Left 10/07/2020 [facility]: revascularization for [place] disease LAPS SURG CHOLECYSTECTOMY W/CHOLANGIOGRAPHY 04/05/2007 LEXISCAN STRESS TEST 07/23/2020 Negative TONSILLECTOMY PRIMARY/SECONDARY <AGE 12 Tonsillectomy TOTAL ABDOMINAL HYSTERECT W/WO RMVL TUBE OVARY Hysterectomy, NEW/LSO Family History FAMILY HISTORY Problem Relation Age of Onset Hypertension Mother Diabetes Mother Heart Father Diabetes Brother 1/2 brother Patient Allergies ALLERGIES Allergen Reactions Bactrim [Sulfametho* Hives Gabapentin Hives Doxycycline Unknown Abilify [Aripiprazo* Other: See Comments cannot sit still and makes anxiety worse. Ambien [Zolpidem] Intolerance Made her jittery Eggs [Other] Unknown Erythromycin Other: See Comments nausea and lightheadedness Flexeril [Cyclobenz* Other: See Comments dry mouth and drosey. Glucophage [Metform* Other: See Comments Diarrhea, even with XR Lorazepam Mental Status Change Note that helped with panic attacks, but caused anger reaction Metformin Other: See Comments Stomach pain an diarrhea Penicillins Rash Trazodone Intolerance Made her more jittery and anxious Wellbutrin Sr [Bupr* Intolerance Made her aggresssive Zithromax [Azithrom* Rash, Diarrhea, GI Upset However, willign to take for acute bronchitis as it is effective Current Medications Current Outpatient Medications on File Prior to Visit Medication Sig BORIC ACID 600 MG VAGINAL SUPPOSITORY Use 1 Suppository vaginally daily at bedtime for 14 days. USE ONLY IN YOUR VAGINA albuterol (PROVENTIL) 2.5 mg /3 mL (0.083 %) nebulizer solution Use 3 mL via nebulizer every 4 hours as needed for wheezing/shortness of breath. Use over 5-15minutes. Nebulizer and Compressor For Neb With supplies. Use every 4 hrs as needed. Dx: J45.20 estradiol (ESTRACE) 0.01 % (0.1 mg/gram) vaginal cream Use 0.5g vaginally at bedtime for 2 weeks then 1-3 time/weeks for maintenance. Cholecalciferol, Vitamin D3, 125 mcg (5,000 unit) cap Take 1 capsule by mouth once daily. flash glucose scanning reader (FREESTYLE JACQUELINE 2 READER) 1 Each four times daily. flash glucose sensor (FREESTYLE JACQUELINE 2 SENSOR) kit 1 Each four times daily. glimepiride (AMARYL) 4 mg tablet TAKE ONE TABLETS BY MOUTH ONCE DAILY WITH BREAKFAST empagliflozin (JARDIANCE) 25 mg tablet Take 1 tablet by mouth once daily. Take 1 tablet once daily in the morning atorvastatin (LIPITOR) 80 mg tablet Take 1 tablet by mouth daily at bedtime. clopidogrel (PLAVIX) 75 mg tablet Take 1 tablet by mouth once daily. pantoprazole DR (PROTONIX) 40 mg tablet Take 1 tablet by mouth twice daily. Take on empty stomach, 1/2 hr before meal. zonisamide (ZONEGRAN) 25 mg capsule Take 1 capsule by mouth once daily. PEG 400-propylene glycol (SYSTANE ULTRA) 0.4-0.3 % ophthalmic solution Use 1 Drop in both eyes twice daily. (Patient taking differently: Use 1 Drop in both eyes twice daily. As needed) blood sugar diagnostic (BLOOD GLUCOSE TEST) test strip Test blood sugar(s) 1 times daily. Dx: Other DM Code E11.3219 Insulin: No Lancets lancets Test blood sugar(s) 1 times daily. Dx: Other DM Code E11.3219 Insulin: No baclofen (LIORESAL) 10 mg tablet Take 1 tablet by mouth twice daily as needed (muscle spasms). blood sugar diagnostic (BLOOD GLUCOSE TEST) test strip Test blood sugar(s) 1 times daily. Dx: Other DM Code E11.3219 Insulin: No Blood-Glucose Sensor (DEXCOM G6 SENSOR) fern Check blood sugar once a day Dx: E11.3219 no insulin lancets (FREESTYLE LANCETS) 28 gauge Test blood sugar(s) 1 times daily. Dx: 250.0. Insulin: No omega-3 fatty acids 1,000 mg cap Take 2 capsules by mouth once daily. Nebulizer NEBULIZER FOR HOME USE. DX: Asthma (Patient taking differently: NEBULIZER FOR HOME USE. DX: Asthma) clonazePAM (KLONOPIN) 1 mg tablet Take 1 tablet by mouth three times daily as needed for Anxiety. Per QUEtiapine (SEROQUEL) 50 mg tablet Take 1 tablet by mouth daily at bedtime. Per No current facility-administered medications on file prior to visit. Social History Social History Tobacco Use Smoking status: Every Day Packs/day: 1.50 Years: 29.00 Additional pack years: 0.00 Total pack years: 43.50 Types: Cigarettes Smokeless tobacco: Never Vaping Use Vaping Use: Some days Substances: Nicotine, Flavoring Devices: SmartMoveble tank Substance Use Topics Alcohol use: No Drug use: No Review of Symptoms REVIEW OF SYSTEMS SEE HPI EXAM: BP 130/82 Pulse 82 Resp 16 Wt 68.5 kg (151 lb) BMI 24.37 kg/m General Appearance: Well appearing, alert, in no acute distress, well-hydrated, well nourished.. Lungs: Lungs clear to auscultation. No wheezing, rhonchi, rales.. Heart: RRR without murmur, gallop, or rubs. No ectopy. Health Maintenance List Mammogram Screening due on 05/06/2020 Lung Cancer Screening Never done Dilated Retinal Exam due on 03/31/2023 Influenza Vaccine(1) due on 04/14/2023 Diabetic Foot Exam due on 05/16/2023 Hepatitis B Vaccine(1 of 3 - 3-dose series) due on 05/16/2023 Colorectal Cancer Screening due on 05/16/2023 Shingrix Vaccine(1 of 2) due on 05/16/2023 Covid-19 Vaccine(1) due on 11/15/2023 HbA1C due on 05/16/2023 Urine Albumin:Creatinine Ratio due on 11/15/2023 LDL Cholesterol due on 11/15/2023 Annual PCP Team Chronic Disease Visit due on 05/05/2024 DTaP,Tdap,Td Vaccine(2 - Td or Tdap) due on 10/26/2030 Pneumococcal Vaccine(3 - PPSV23 or PCV20) due on 2036 Spirometry Completed Pap Testing Discontinued HPV Testing Discontinued Hepatitis C Screening Discontinued HIV Screening Discontinued ASSESSMENT/PLAN: 1. Type 2 diabetes mellitus with both eyes affected by mild nonproliferative retinopathy and macular edema, without long-term current use of insulin ([facility]) - ICD9: 250.50, 362.04, 362.07, ICD10: E11.3213 - COMP METABOLIC PANEL - HGB A1C - GLIMEPIRIDE 4 MG TABLET Oziel Chandler APRN.EYE PHYSICIAN documented in this encounter [facility] 04-29-2023 Note HNO ID: [id number] Author: Attila Levin MD Service: ? Author Type: Physician Type: Progress Notes Filed: 04/29/2023 3:05 PM Note Text: Patient presents with: Sore Throat: With stuffy head x1 day HPI: Feeling sick since yesterday. Positive symptoms: Sore throat, Cough, Shortness of breath, Sinus pressure, Nasal Congestion, Rhinorrhea, improved Fever/Chills, Malaise, Fatigue, Headache, Negative symptoms: Nausea, Vomiting, Diarrhea, OTC: cough syrup, Nyquil MEDICATIONS: Current Outpatient Medications Medication Sig terconazole (TERAZOL 7) 0.4 % vaginal cream Use 1 Applicator vaginally daily at bedtime for 7 days. albuterol (PROVENTIL) 2.5 mg /3 mL (0.083 %) nebulizer solution Use 3 mL via nebulizer every 4 hours as needed for wheezing/shortness of breath. Use over 5-15minutes. Nebulizer and Compressor For Neb With supplies. Use every 4 hrs as needed. Dx: J45.20 estradiol (ESTRACE) 0.01 % (0.1 mg/gram) vaginal cream Use 0.5g vaginally at bedtime for 2 weeks then 1-3 time/weeks for maintenance. Cholecalciferol, Vitamin D3, 125 mcg (5,000 unit) cap Take 1 capsule by mouth once daily. flash glucose scanning reader (FREESTYLE JACQUELINE 2 READER) 1 Each four times daily. flash glucose sensor (FREESTYLE JACQUELINE 2 SENSOR) kit 1 Each four times daily. glimepiride (AMARYL) 4 mg tablet TAKE ONE TABLETS BY MOUTH ONCE DAILY WITH BREAKFAST empagliflozin (JARDIANCE) 25 mg tablet Take 1 tablet by mouth once daily. Take 1 tablet once daily in the morning atorvastatin (LIPITOR) 80 mg tablet Take 1 tablet by mouth daily at bedtime. clopidogrel (PLAVIX) 75 mg tablet Take 1 tablet by mouth once daily. pantoprazole DR (PROTONIX) 40 mg tablet Take 1 tablet by mouth twice daily. Take on empty stomach, 1/2 hr before meal. zonisamide (ZONEGRAN) 25 mg capsule Take 1 capsule by mouth once daily. PEG 400-propylene glycol (SYSTANE ULTRA) 0.4-0.3 % ophthalmic solution Use 1 Drop in both eyes twice daily. (Patient taking differently: Use 1 Drop in both eyes twice daily. As needed) blood sugar diagnostic (BLOOD GLUCOSE TEST) test strip Test blood sugar(s) 1 times daily. Dx: Other DM Code E11.3219 Insulin: No Lancets lancets Test blood sugar(s) 1 times daily. Dx: Other DM Code E11.3219 Insulin: No baclofen (LIORESAL) 10 mg tablet Take 1 tablet by mouth twice daily as needed (muscle spasms). blood sugar diagnostic (BLOOD GLUCOSE TEST) test strip Test blood sugar(s) 1 times daily. Dx: Other DM Code E11.3219 Insulin: No Blood-Glucose Sensor (DEXCOM G6 SENSOR) fern Check blood sugar once a day Dx: E11.3219 no insulin lancets (FREESTYLE LANCETS) 28 gauge Test blood sugar(s) 1 times daily. Dx: 250.0. Insulin: No omega-3 fatty acids 1,000 mg cap Take 2 capsules by mouth once daily. Nebulizer NEBULIZER FOR HOME USE. DX: Asthma (Patient taking differently: NEBULIZER FOR HOME USE. DX: Asthma) clonazePAM (KLONOPIN) 1 mg tablet Take 1 tablet by mouth three times daily as needed for Anxiety. Per QUEtiapine (SEROQUEL) 50 mg tablet Take 1 tablet by mouth daily at bedtime. Per No current facility-administered medications for this visit. ALLERGIES: ALLERGIES Allergen Reactions Bactrim [Sulfametho* Hives Gabapentin Hives Doxycycline Unknown Abilify [Aripiprazo* Other: See Comments cannot sit still and makes anxiety worse. Ambien [Zolpidem] Intolerance Made her jittery Eggs [Other] Unknown Erythromycin Other: See Comments nausea and lightheadedness Flexeril [Cyclobenz* Other: See Comments dry mouth and drosey. Glucophage [Metform* Other: See Comments Diarrhea, even with XR Lorazepam Mental Status Change Note that helped with panic attacks, but caused anger reaction Metformin Other: See Comments Stomach pain an diarrhea Penicillins Rash Trazodone Intolerance Made her more jittery and anxious Wellbutrin Sr [Bupr* Intolerance Made her aggresssive Zithromax [Azithrom* Rash, Diarrhea, GI Upset However, willign to take for acute bronchitis as it is effective VITALS: BP 138/90 Pulse 82 Temp 36.6 ?C (97.9 ?F) Resp 16 Wt 68.9 kg (152 lb) SpO2 99% BMI 24.53 kg/m? PHYSICAL EXAM: GEN: mildly ill appearing HEENT: PERRL, EOMI, conjunctiva clear Ears: distal cerumen left canal. RTM without erythema, bulge, or effusion; visible left canal without erythema or effusion. Sinuses: non-tender frontal sinus, non-tender maxillary sinuses Throat: moist mucous membranes, mild erythema, no exudate Neck: supple, no thyromegaly, no lymphadenopathy HEART: regular rate and rhythm, no murmurs LUNGS: clear to auscultation, no wheezes or crackles, no increased WOB Component Latest Ref Rng AND Units 11/14/2022 eGFR >=60 mL/min/1.73mA? 75 ASSESSMENT/PLAN: 1. Sore throat - ICD9: 462, ICD10: J02.9 (primary diagnosis) 2. URI, acute - ICD9: 465.9, ICD10: J06.9 - STREP A MOLECULAR (POC) - negative - suspect viral URI, differential includes COVID- (more content not included)... [facility] 04-29-2023 History of Presen t illness Narrative Patient presents with: Sore Throat: With stuffy head x1 day HPI: Feeling sick since yesterday. Positive symptoms: Sore throat, Cough, Shortness of breath, Sinus pressure, Nasal Congestion, Rhinorrhea, improved Fever/Chills, Malaise, Fatigue, Headache, Negative symptoms: Nausea, Vomiting, Diarrhea, OTC: cough syrup, Nyquil MEDICATIONS: Current Outpatient Medications Medication Sig terconazole (TERAZOL 7) 0.4 % vaginal cream Use 1 Applicator vaginally daily at bedtime for 7 days. albuterol (PROVENTIL) 2.5 mg /3 mL (0.083 %) nebulizer solution Use 3 mL via nebulizer every 4 hours as needed for wheezing/shortness of breath. Use over 5-15minutes. Nebulizer and Compressor For Neb With supplies. Use every 4 hrs as needed. Dx: J45.20 estradiol (ESTRACE) 0.01 % (0.1 mg/gram) vaginal cream Use 0.5g vaginally at bedtime for 2 weeks then 1-3 time/weeks for maintenance. Cholecalciferol, Vitamin D3, 125 mcg (5,000 unit) cap Take 1 capsule by mouth once daily. flash glucose scanning reader (Gen9STYLE JACQUELINE 2 READER) 1 Each four times daily. flash glucose sensor (FREESTYLE JACQUELINE 2 SENSOR) kit 1 Each four times daily. glimepiride (AMARYL) 4 mg tablet TAKE ONE TABLETS BY MOUTH ONCE DAILY WITH BREAKFAST empagliflozin (JARDIANCE) 25 mg tablet Take 1 tablet by mouth once daily. Take 1 tablet once daily in the morning atorvastatin (LIPITOR) 80 mg tablet Take 1 tablet by mouth daily at bedtime. clopidogrel (PLAVIX) 75 mg tablet Take 1 tablet by mouth once daily. pantoprazole DR (PROTONIX) 40 mg tablet Take 1 tablet by mouth twice daily. Take on empty stomach, 1/2 hr before meal. zonisamide (ZONEGRAN) 25 mg capsule Take 1 capsule by mouth once daily. PEG 400-propylene glycol (SYSTANE ULTRA) 0.4-0.3 % ophthalmic solution Use 1 Drop in both eyes twice daily. (Patient taking differently: Use 1 Drop in both eyes twice daily. As needed) blood sugar diagnostic (BLOOD GLUCOSE TEST) test strip Test blood sugar(s) 1 times daily. Dx: Other DM Code E11.3219 Insulin: No Lancets lancets Test blood sugar(s) 1 times daily. Dx: Other DM Code E11.321 Insulin: No baclofen (LIORESAL) 10 mg tablet Take 1 tablet by mouth twice daily as needed (muscle spasms). blood sugar diagnostic (BLOOD GLUCOSE TEST) test strip Test blood sugar(s) 1 times daily. Dx: Other DM Code E11.321 Insulin: No Blood-Glucose Sensor (DEXCOM G6 SENSOR) fern Check blood sugar once a day Dx: E11.321 no insulin lancets (FREESTYLE LANCETS) 28 gauge Test blood sugar(s) 1 times daily. Dx: 250.0. Insulin: No omega-3 fatty acids 1,000 mg cap Take 2 capsules by mouth once daily. Nebulizer NEBULIZER FOR HOME USE. DX: Asthma (Patient taking differently: NEBULIZER FOR HOME USE. DX: Asthma) clonazePAM (KLONOPIN) 1 mg tablet Take 1 tablet by mouth three times daily as needed for Anxiety. Per QUEtiapine (SEROQUEL) 50 mg tablet Take 1 tablet by mouth daily at bedtime. Per No current facility-administered medications for this visit. ALLERGIES: ALLERGIES Allergen Reactions Bactrim [Sulfametho* Hives Gabapentin Hives Doxycycline Unknown Abilify [Aripiprazo* Other: See Comments cannot sit still and makes anxiety worse. Ambien [Zolpidem] Intolerance Made her jittery Eggs [Other] Unknown Erythromycin Other: See Comments nausea and lightheadedness Flexeril [Cyclobenz* Other: See Comments dry mouth and drosey. Glucophage [Metform* Other: See Comments Diarrhea, even with XR Lorazepam Mental Status Change Note that helped with panic attacks, but caused anger reaction Metformin Other: See Comments Stomach pain an diarrhea Penicillins Rash Trazodone Intolerance Made her more jittery and anxious Wellbutrin Sr [Bupr* Intolerance Made her aggresssive Zithromax [Azithrom* Rash, Diarrhea, GI Upset However, willign to take for acute bronchitis as it is effective VITALS: BP 138/90 Pulse 82 Temp 36.6 C (97.9 F) Resp 16 Wt 68.9 kg (152 lb) SpO2 99% BMI 24.53 kg/m PHYSICAL EXAM: GEN: mildly ill appearing HEENT: PERRL, EOMI, conjunctiva clear Ears: distal cerumen left canal. RTM without erythema, bulge, or effusion; visible left canal without erythema or effusion. Sinuses: non-tender frontal sinus, non-tender maxillary sinuses Throat: moist mucous membranes, mild erythema, no exudate Neck: supple, no thyromegaly, no lymphadenopathy HEART: regular rate and rhythm, no murmurs LUNGS: clear to auscultation, no wheezes or crackles, no increased WOB Component Latest Ref Rng & Units 11/14/2022 eGFR >=60 mL/min/1.73m 75 ASSESSMENT/PLAN: 1. Sore throat - ICD9: 462, ICD10: J02.9 (primary diagnosis) 2. URI, acute - ICD9: 465.9, ICD10: J06.9 - STREP A MOLECULAR (POC) - negative - suspect viral URI, differential includes COVID-19. - Discussed supportive care treatment with home isolation, rest, cold medicine, and analgesia. - Red flags to seek further treatment include chest pain, shortness of breath, and lethargy; in the ER if severe. - COVID NAAT, UPPER RESPIRATORY, ROUTINE Paxlovid has drug interactions with Lipitor, Seroquel, and Plavix. Schedule virtual appointment to discuss molnupiravir option if positive for COVID. Attila Levin MD documented in this encounter [facility] 04-26-2023 Note Patient Outreach (IN [facility]) NARA BEYER ([id number]) 1970 F Date Time Provider Department 04/26/23 RAN MURPHY During your visit today, we recorded the following information about you: Allergies As of Date: 04/26/2023 Noted Allergy Reaction BACTRIM (SULFAMETHOXAZOLE) 01/11/2011 4 - Hives GABAPENTIN 12/16/2021 4 - Hives DOXYCYCLINE 06/02/2022 16 - Unknown ABILIFY (ARIPIPRAZOLE) 01/19/2011 14 - Other: See Comments Comments: cannot sit still and makes anxiety worse. AMBIEN (ZOLPIDEM) 07/24/2007 5 - Intolerance Comments: Made her jittery eggs [Other] 05/19/2005 16 - Unknown ERYTHROMYCIN 07/08/2005 14 - Other: See Comments Comments: nausea and lightheadedness FLEXERIL (CYCLOBENZAPRINE) 10/18/2021 14 - Other: See Comments Comments: dry mouth and drosey. GLUCOPHAGE (METFORMIN HCL) 08/24/2015 14 - Other: See Comments Comments: Diarrhea, even with XR LORAZEPAM 02/23/2007 1 - Mental Status Change Comments: Note that helped with panic attacks, but caused anger reaction METFORMIN 07/03/2015 14 - Other: See Comments Comments: Stomach pain an diarrhea PENICILLINS 04/30/2008 2 - Rash TRAZODONE 07/08/2005 5 - Intolerance Comments: Made her more jittery and anxious WELLBUTRIN SR (BUPROPION HCL) 07/24/2007 5 - Intolerance Comments: Made her aggresssive ZITHROMAX (AZITHROMYCIN) 05/26/2005 2 - Rash 6 - Diarrhea 8 - GI Upset Comments: However, willign to take for acute bronchitis as it is effective Date Reviewed: 04/26/2023 Reviewed by: Nuria Roy MD - Fully Assessed Visit Diagnosis:Encounter for screening mammogram for breast cancer [Z12.31] Order(s):[facility] SCREENING [[id number]] Order #: [id number] FUTURE Prescriptions as of 05/01/2023 - terconazole (TERAZOL 7) 0.4 % vaginal cream Use 1 Applicator vaginally daily at bedtime for 7 days. - albuterol (PROVENTIL) 2.5 mg /3 mL (0.083 %) nebulizer solution Use 3 mL via nebulizer every 4 hours as needed for wheezing/shortness of breath. Use over 5-15minutes. - Nebulizer and Compressor For Neb With supplies. Use every 4 hrs as needed. Dx: J45.20 - estradiol (ESTRACE) 0.01 % (0.1 mg/gram) vaginal cream Use 0.5g vaginally at bedtime for 2 weeks then 1-3 time/weeks for maintenance. - Cholecalciferol, Vitamin D3, 125 mcg (5,000 unit) cap Take 1 capsule by mouth once daily. - flash glucose scanning reader (FREESTYLE JACQUELINE 2 READER) 1 Each four times daily. - flash glucose sensor (FREESTYLE JACQUELINE 2 SENSOR) kit 1 Each four times daily. - glimepiride (AMARYL) 4 mg tablet TAKE ONE TABLETS BY MOUTH ONCE DAILY WITH BREAKFAST - empagliflozin (JARDIANCE) 25 mg tablet Take 1 tablet by mouth once daily. Take 1 tablet once daily in the morning - atorvastatin (LIPITOR) 80 mg tablet Take 1 tablet by mouth daily at bedtime. - clopidogrel (PLAVIX) 75 mg tablet Take 1 tablet by mouth once daily. - pantoprazole DR (PROTONIX) 40 mg tablet Take 1 tablet by mouth twice daily. Take on empty stomach, 1/2 hr before meal. - zonisamide (ZONEGRAN) 25 mg capsule Take 1 capsule by mouth once daily. - PEG 400-propylene glycol (SYSTANE ULTRA) 0.4-0.3 % ophthalmic solution Use 1 Drop in both eyes twice daily. - blood sugar diagnostic (BLOOD GLUCOSE TEST) test strip Test blood sugar(s) 1 times daily. Dx: Other DM Code E11.3219 Insulin: No - Lancets lancets Test blood sugar(s) 1 times daily. Dx: Other DM Code E11.3219 Insulin: No - baclofen (LIORESAL) 10 mg tablet Take 1 tablet by mouth twice daily as needed (muscle spasms). - blood sugar diagnostic (BLOOD GLUCOSE TEST) test strip Test blood sugar(s) 1 times daily. Dx: Other DM Code E11.3219 Insulin: No - Blood-Glucose Sensor (DEXCOM G6 SENSOR) fern Check blood sugar once a day Dx: E11.3219 no insulin - lancets (FREESTYLE LANCETS) 28 gauge Test blood sugar(s) 1 times daily. Dx: 250.0. Insulin: No - omega-3 fatty acids 1,000 mg cap Take 2 capsules by mouth once daily. - Nebulizer NEBULIZER FOR HOME USE. DX: Asthma - clonazePAM (KLONOPIN) 1 mg tablet Take 1 tablet by mouth three times daily as needed for Anxiety. Per - QUEtiapine (SEROQUEL) 50 mg tablet Take 1 tablet by mouth daily at bedtime. Per [facility] Comments as of 07/24/2007: All medications have been reviewed /July 24, 2007 [facility] Problem List As Of Date 04/26/2023 Noted Resolved History of chronic pancreatitis [Z87.19] 05/25/2005 Diffuse cystic mastopathy [N60.19] 05/25/2005 Major depression [F32.9] 05/25/2005 Anxiety state, unspecified [F41.1] 05/25/2005 08/30/2013 Mild intermittent asthma without complication [*05/25/2005 Migraine with aura and without status migrainos* Generalized anxiety disorder [F41.1] Other symptoms involving urinary system [788.9] 06/16/2006 Allergic rhinitis [J30.9] 12/15/2006 Bilateral carotid artery disease (HCC) [I77.9] 01/07/2011 09/16/2019 H/O: (more content not included)... [facility] 04-26-2023 Note HNO ID: [id number] Author: Nuria Roy MD Service: ? Author Type: Physician Type: Progress Notes Filed: 04/26/2023 9:31 AM Note Text: Nara Beyer is a 52 year old female who presents for vaginal pruritis for 2 week(s). Some increased discharge. USes estrogen vaginal cream, hasn't used it in a week. Same partner for last 6 years, denies concern for STIs. States she has been taking her medications for diabetes but glucose in office 04/12 was 437. S/p hysterectomy. Vaginal discharge: moderate amount. Itching: YES Bladder: Negative for dysuria or frequency Past medical, surgical, social history, medications and allergies reviewed and updated. OBJECTIVE: BP 132/85 Wt 153 lb (69.4kg) PELVIC: , normal Bartholin's glands, urethra, [place]'s glands, no vulvar lesions, good vaginal support, present, normal appearing perineal body and perianal region, cervix surgically absent, thin pale epithelium w/ white discharge, slight erythema of external genitalia BIMANUAL: no adnexal masses, non-tender, and uterus surgically absent. ASSESSMENT/PLAN: yeast vaginitis, sent swabs d/w her importance of f/u w/ her PCP to manage Dm No orders found for this visit on 04/26/23. STD screening: Declined STD check. Any new medications given to the patient have been explained as to directions, reasons for prescribing and side effects. Perineal hygiene and safe sex were discussed with the patient. Nuria Roy MD [facility] 04-20-2023 Note HNO ID: [id number] Author: Opal Castillo Ma Service: ? Author Type: ? Type: Progress Notes Filed: 04/23/2023 8:33 PM Note Text: Scan on 04/19/2023 8:49 PM by Provider, KAMILLA Dickerson: Consultation - Emergency Medicine [facility] 04-20-2023 History of Presen t illness Narrative Scan on 04/19/2023 8:49 PM by Provider, KAMILLA Dickerson: Consultation - Emergency Medicine documented in this encounter [facility] 04-14-2023 Miscellaneous Notes Pt was notified of the results. Pt verbalized understanding. Tarah Bullard MA Please notify patient that urine culture showed mixture of bacteria which suggests possible contamination upon collection. She was sent to ER at her visit due to high BS, if she is still having symptoms after treatment of high blood sugar will need to return to provide another specimen. Thank you. Luba Crocker APRN.EYE PHYSICIAN documented in this encounter [facility] 04-12-2023 Note HNO ID: [id number] Author: Yadi Pierce APRN.EYE PHYSICIAN Service: ? Author Type: Nurse Practitioner Type: Progress Notes Filed: 04/12/2023 4:23 PM Note Text: During the visit the blood sugar was checked and was in the 400s. Patient has been feeling fatigued and with her urinary frequency she is symptomatic. At this time she is being sent to the emergency room for an evaluation due to not having checked her blood sugar in months. Patient understands and is okay with this care plan. [facility] 04-12-2023 History of Presen t illness Narrative During the visit the blood sugar was checked and was in the 400s. Patient has been feeling fatigued and with her urinary frequency she is symptomatic. At this time she is being sent to the emergency room for an evaluation due to not having checked her blood sugar in months. Patient understands and is okay with this care plan. documented in this encounter [facility] 02-16-2023 Miscellaneous Notes Noted. Nicolette Pierce MA Pt returned call. Given [facility] phone number listed below. Left message for patient to contact office. Received fax from [facility] that they have tried several times to contact patient. Have patient contact [phone]. Nicolette Pierce MA documented in this encounter [facility] 02-10-2023 Miscellaneous Notes Patient has umbilical hernia that is very tender to touch, and has gotten bigger in the past week and it is swollen. Patient agreeable to ER for evaluation. States she will go to [facility] ER. Reason for Disposition Hernia is painful or tender to touch Answer Assessment - Initial Assessment Questions 1. ONSET: Patient reports she's had an umbilical hernia for a couple years. Yesterday it was uncomfortable sitting, and it is bigger, and swollen, feels more mushy. Reports has noticed it more in last 4 weeks. 2. APPEARANCE: Looks about the size of a golf ball. Before was just a little knot. 3. SIZE: Golf ball size. 4. LOCATION: Above naval 5. PATTERN Constant since noticed it yesterday. 6. PAIN: No pain but uncomfortable and tender to touch. 7. DIAGNOSIS: Reports pcp told her it was probably a hernia 8. OTHER SYMPTOMS: No abdominal pain, no fever, no vomiting but is nauseated. 9. : No. Protocols used: [id number] documented in this encounter [facility] 02-09-2023 Miscellaneous Notes Faxed to [facility]. Patient notified. Nicolette Pierce MA Script ready to be faxed to [facility]. The following approved medication requests have been transmitted electronically. Requested Prescriptions Signed Prescriptions Disp Refills albuterol (PROVENTIL) 2.5 mg /3 mL (0.083 %) nebulizer solution 90 mL 1 Sig: Use 3 mL via nebulizer every 4 hours as needed for wheezing/shortness of breath. Use over 5-15minutes. Authorizing Provider: RAN MURPHY Nebulizer and Compressor For Neb 1 Each 0 Sig: With supplies. Use every 4 hrs as needed. Dx: J45.20 Authorizing Provider: RAN MURPHY MD Pt calling for the followin)Nebulizer prescription with accessories to be sent to [facility] and she will pick it up there. 2)Nebulizer solution to be sent to [facility]. Please advise pt when this has been done. Susan Carlton LPN documented in this encounter [facility] 02-03-2023 Miscellaneous Notes Pt. states she has a skin rash from using a tanning adkins. Advised to go to urgent care for evaluation. No Appt's in FP. documented in this encounter [facility] 12-26-2022 Miscellaneous Notes Patient notified of results, verbalizes understanding of instructions. Essie Valente RN Please let the patient know that her vaginal cultures are negative for infection and to continue with the estrogen cream. Follow-up as needed. Marciarmen Yap APRN.CNP documented in this encounter [facility] 12-23-2022 Note HNO ID: [id number] Author: Maricarmen Yap APRN.CNP Service: ? Author Type: Nurse Practitioner Type: Progress Notes Filed: 12/23/2022 3:03 PM Note Text: Nara Beyer is a 52 year old female who presents for vaginal burning, discharge, and odor ongoing . She states that she feels like it never goes away. Vaginal discharge: moderate amount, foul smelling, thin, and clear. Itching: Some Dyspareunia: YES Fever/chills: No Abdominal pain: No Bladder: Negative for dysuria or frequency Bowel: No blood in stool, pain with BM, tarry stool, persistent diarrhea or constipation Any new sexual partners or concern for STD exposure: No Are you currently taking any medications to treat vaginitis: No Do you use feminine sprays, douches or deodorants: No Past medical, surgical, social history, medications and allergies reviewed and updated. OBJECTIVE: BP 126/82 Wt 154 lb (69.9kg) GENERAL: Well developed, well nourished in no apparent distress PELVIC: external genitalia normal, normal Bartholin's glands, urethra, [place]'s glands, no vulvar lesions, physiologic discharge present, normal appearing perineal body and perianal region, cervix surgically absent BIMANUAL: deferred. ASSESSMENT/PLAN: 1. Vaginal discharge - ICD9: 623.5, ICD10: N89.8 (primary diagnosis) - ASHLY / TRICHOMONAS AMPLIFICATION - BACTERIAL VAGINOSIS AMPLIFICATION 2. Vaginal odor - ICD9: 625.8, ICD10: N89.8 - ASHLY / TRICHOMONAS AMPLIFICATION - BACTERIAL VAGINOSIS AMPLIFICATION 3. Vaginal irritation - ICD9: 623.9, ICD10: N89.8 - ASHLY / TRICHOMONAS AMPLIFICATION - BACTERIAL VAGINOSIS AMPLIFICATION Vaginal estrogen cream ordered Maricarmen Yap APRN.CNP Medical Decision Making: Problems: Low: Acute, uncomplicated illness or injury Data: Unique test(s) ordered: 2 Risk: Low: Low risk from testing/treatment Moderate: Drug management Medical Decision Making Level: 3 - Low [facility] 12-12-2022 Miscellaneous Notes Patient calls and notified of results and providers instructions. Patient verbalizes understanding. Clemencia Cloud RN Left message for patient to return call to office Sienna Higgins Cma Please let patient know her urine culture is negative. She should follow up with [facility] REGISTERED NURSE for continued vaginal symptoms. documented in this encounter [facility] 12-08-2022 Note HNO ID: [id number] Author: Oziel Chandler APRN.JENN Service: ? Author Type: Nurse Practitioner Type: Progress Notes Filed: 12/08/2022 11:57 AM Note Text: Chief Complaint Patient presents with: ED Follow-up HPI Nara Beyer is a 52 year old female who presents here today for Above Complaints.. Patient presents for ER follow up. Patient was seen in ER 11/29/2022 for vertigo and was also found to have a UTI. Patient was initiated on bactrim which she completed. Patient reports she continues to have frequency, discharge, and itching. Patient has been following with Maricarmen Yap for the ongoing urinary/vaginal issues. Patient reports she is currently still experiencing vertigo symptoms but they have improved with meclizine. Past medical history, appointments, medications, allergies reviewed. Previous Medical History PAST MEDICAL HISTORY Diagnosis Date Alcohol abuse 03/31/2018 ER 03/2017 Cas with alcoholic pancreatitis Alcoholism (HCC) 04/10/2018 Had quit drinking drink in 1995 and had been going to AA. Had a short relapse in 03/2018 Allergic rhinitis 12/15/2006 Balance problems 01/23/2017 Bilateral carotid artery disease (HCC) 01/07/2011 MRA 12/2013 unchanged from that of 2010. US 03/2016 Rt occluded, Lt 20-40% Carcinoma in situ of cervix uteri 2000 Carotid artery stenosis 09/16/2019 CVA (cerebral infarction) 12/2010 Diffuse cystic mastopathy 05/25/2005 Dysarthria 10/26/2020 After Moyamoya surgery 10/07/2020 Dyslipidemia Gastroesophageal reflux disease without esophagitis 03/30/2016 Generalized anxiety disorder Anxiety, Generalized Greater trochanteric bursitis of right hip 04/10/2018 Gross hematuria 11/07/2022 Cystoscopy Neg 10/2022 H/O: CVA (cerebrovascular accident) 09/06/2013 History of chronic pancreatitis 05/25/2005 Resolved after gall bladder removed. Left-sided weakness 01/23/2017 Chronic and residual from CVA 2006. Leg pain, bilateral 09/17/2018 Script given for support socks Major depression 05/25/[address] [facility]. 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 Dupont, , fax: [phone] Peripheral arterial disease (HCC) 02/26/2021 Dr. goldstein Positive PPD 09/17/2018 Per Med Pro 09/2018, Getting chest x-ray 09/18/2018 and was neg and repeat PPD 01/2019 was neg Slurred speech 01/23/2017 Discussed [id number] and MRI was ok. 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 BYPASS GRAFT OTHR,CAROTID 08/14/2010 CONIZATION CERVIX W/WO DANDC RPR ELTRD EXC 08/14/2000 LEEP-Cervix DILATION AND CURETTAGE DXAND/THER NONOBSTETRIC 08/14/1989 Dilation AND curettage EDAS (ENCEPHALO RAYNE ARTERIO SYNAGIOSIS) Left 10/07/2020 [facility]: revascularization for Moyamoya disease LAPS SURG CHOLECYSTECTOMY W/CHOLANGIOGRAPHY 04/05/2007 LEXISCAN STRESS TEST 07/23/2020 Negative TONSILLECTOMY PRIMARY/SECONDARY Tonsillectomy TOTAL ABDOMINAL HYSTERECT W/WO RMVL TUBE OVARY Hysterectomy, NEW/LSO Family History FAMILY HISTORY Problem Relation Age of Onset Hypertension Mother Heart Father Diabetes Brother 1/2 brother Patient Allergies ALLERGIES Allergen Reactions Bactrim [Sulfametho* Hives Gabapentin Hives Doxycycline Unknown Abilify [Aripiprazo* Other: See Comments cannot sit still and makes anxiety worse. Ambien [Zolpidem] Intolerance Made her jittery Eggs [Other] Unknown Erythromycin Other: See Comments nausea and lightheadedness Flexeril [Cyclobenz* Other: See Comments dry mouth and drosey. Glucophage [Metform* Other: See Comments Diarrhea, even with XR Lorazepam Mental Status Change Note that helped with panic attacks, but caused anger reaction Metformin Other: See Comments Stomach pain an diarrhea Penicillins Rash Trazodone Intolerance Made her more jittery and anxious Wellbutrin Sr [Bupr* Intolerance Made her aggresssive Zithromax [Azithrom* Rash, Diarrhea, GI Upset However, willign to take for acute bronchitis as it is effective Current Medications Current Outpatient Medications on File Prior to Visit Medication Sig Cholecalciferol, Vitamin D3, 125 mcg (5,000 unit) cap Take 1 capsule by mouth once daily. flash glucose scanning reader (FREESTPHARMAJET JACQUELINE 2 READER) 1 Each four (more content not included)... [facility] 12-08-2022 Instructions Oziel Chandler APRN.CNP - 12/08/2022 11:57 AM EDT Schedule PT Continue meclizine Urine culture pending documented in this encounter [facility] 12-08-2022 History of Presen t illness Narrative Chief Complaint Patient presents with: ED Follow-up HPI Nara Beyer is a 52 year old female who presents here today for Above Complaints.. Patient presents for ER follow up. Patient was seen in ER 11/29/2022 for vertigo and was also found to have a UTI. Patient was initiated on bactrim which she completed. Patient reports she continues to have frequency, discharge, and itching. Patient has been following with Maricarmen Yap for the ongoing urinary/vaginal issues. Patient reports she is currently still experiencing vertigo symptoms but they have improved with meclizine. Past medical history, appointments, medications, allergies reviewed. Previous Medical History PAST MEDICAL HISTORY Diagnosis Date Alcohol abuse 03/31/2018 ER 03/2017 Cas with alcoholic pancreatitis Alcoholism (HCC) 04/10/2018 Had quit drinking drink in 1995 and had been going to AA. Had a short relapse in 03/2018 Allergic rhinitis 12/15/2006 Balance problems 01/23/2017 Bilateral carotid artery disease (HCC) 01/07/2011 MRA 12/2013 unchanged from that of 2010. US 03/2016 Rt occluded, Lt 20-40% Carcinoma in situ of cervix uteri 2000 Carotid artery stenosis 09/16/2019 CVA (cerebral infarction) 12/2010 Diffuse cystic mastopathy 05/25/2005 Dysarthria 10/26/2020 After Moyamoya surgery 10/07/2020 Dyslipidemia Gastroesophageal reflux disease without esophagitis 03/30/2016 Generalized anxiety disorder Anxiety, Generalized Greater trochanteric bursitis of right hip 04/10/2018 Gross hematuria 11/07/2022 Cystoscopy Neg 10/2022 H/O: CVA (cerebrovascular accident) 09/06/2013 History of chronic pancreatitis 05/25/2005 Resolved after gall bladder removed. Left-sided weakness 01/23/2017 Chronic and residual from CVA 2006. Leg pain, bilateral 09/17/2018 Script given for support socks Major depression 05/25/[address] [facility]. 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 Dupont, , fax: [phone] Peripheral arterial disease (HCC) 02/26/2021 Dr. goldstein Positive PPD 09/17/2018 Per Med Pro 09/2018, Getting chest x-ray 09/18/2018 and was neg and repeat PPD 01/2019 was neg Slurred speech 01/23/2017 Discussed 17 and MRI was ok. 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 BYPASS GRAFT OTHR,CAROTID 08/14/2010 CONIZATION CERVIX W/WO D&C RPR ELTRD EXC 08/14/2000 LEEP-Cervix DILATION & CURETTAGE DX&/THER NONOBSTETRIC 08/14/1989 Dilation & curettage EDAS (ENCEPHALO RAYNE ARTERIO SYNAGIOSIS) Left 10/07/2020 [facility]: revascularization for Moyamoya disease LAPS SURG CHOLECYSTECTOMY W/CHOLANGIOGRAPHY 04/05/2007 LEXISCAN STRESS TEST 07/23/2020 Negative TONSILLECTOMY PRIMARY/SECONDARY <AGE 13 Tonsillectomy TOTAL ABDOMINAL HYSTERECT W/WO RMVL TUBE OVARY Hysterectomy, NEW/LSO Family History FAMILY HISTORY Problem Relation Age of Onset Hypertension Mother Heart Father Diabetes Brother 1/2 brother Patient Allergies ALLERGIES Allergen Reactions Bactrim [Sulfametho* Hives Gabapentin Hives Doxycycline Unknown Abilify [Aripiprazo* Other: See Comments cannot sit still and makes anxiety worse. Ambien [Zolpidem] Intolerance Made her jittery Eggs [Other] Unknown Erythromycin Other: See Comments nausea and lightheadedness Flexeril [Cyclobenz* Other: See Comments dry mouth and drosey. Glucophage [Metform* Other: See Comments Diarrhea, even with XR Lorazepam Mental Status Change Note that helped with panic attacks, but caused anger reaction Metformin Other: See Comments Stomach pain an diarrhea Penicillins Rash Trazodone Intolerance Made her more jittery and anxious Wellbutrin Sr [Bupr* Intolerance Made her aggresssive Zithromax [Azithrom* Rash, Diarrhea, GI Upset However, willign to take for acute bronchitis as it is effective Current Medications Current Outpatient Medications on File Prior to Visit Medication Sig Cholecalciferol, Vitamin D3, 125 mcg (5,000 unit) cap Take 1 capsule by mouth once daily. flash glucose scanning reader (FREESTYLE JACQUELINE 2 READER) 1 Each four times daily. flash glucose sensor (FREESTYLE JACQUELINE 2 SENSOR) kit 1 Each four times daily. glimepiride (AMARYL) 4 mg tablet TAKE ONE TABLETS BY MOUTH ONCE DAILY WITH BREAKFAST empagliflozin (JARDIANCE) 25 mg tablet Take 1 tablet by mouth once daily. Take 1 tablet once daily in the morning atorvastatin (LIPITOR) 80 mg tablet Take 1 tablet by mouth daily at bedtime. clopidogrel (PLAVIX) 75 mg tablet Take 1 tablet by mouth once daily. albuterol HFA (PROAIR HFA) 90 mcg/actuation inhaler Inhale 2 Puffs as instructed every 4 hours as needed. iv contrast (will be provided with radiology test) CT Urogram WO/W Inject, intravenously, once for 1 dose.No IV access, insert saline lock prior to the beginning of sedation, infusion, injection of imaging exam. Discontinue saline lock post exam. If Pt. has a central line or IVAD, may access for administration according to line specific nursing protocol. Once exam is complete flush line and de-access according to line specific nursing protocol in the CT contrast administration guidelines link. phenazopyridine (PYRIDIUM) 200 mg tablet Take 1 tablet by mouth three times daily as needed. pantoprazole DR (PROTONIX) 40 mg tablet Take 1 tablet by mouth twice daily. Take on empty stomach, 1/2 hr before meal. zonisamide (ZONEGRAN) 25 mg capsule Take 1 capsule by mouth once daily. PEG 400-propylene glycol (SYSTANE ULTRA) 0.4-0.3 % ophthalmic solution Use 1 Drop in both eyes twice daily. (Patient taking differently: Use 1 Drop in both eyes twice daily. As needed) blood sugar diagnostic (BLOOD GLUCOSE TEST) test strip Test blood sugar(s) 1 times daily. Dx: Other DM Code E11.3219 Insulin: No Lancets lancets Test blood sugar(s) 1 times daily. Dx: Other DM Code E11.3219 Insulin: No baclofen (LIORESAL) 10 mg tablet Take 1 tablet by mouth twice daily as needed (muscle spasms). blood sugar diagnostic (BLOOD GLUCOSE TEST) test strip Test blood sugar(s) 1 times daily. Dx: Other DM Code E11.3219 Insulin: No Blood-Glucose Sensor (DEXCOM G6 SENSOR) fern Check blood sugar once a day Dx: E11.3219 no insulin lancets (FREESTYLE LANCETS) 28 gauge Test blood sugar(s) 1 times daily. Dx: 250.0. Insulin: No omega-3 fatty acids 1,000 mg cap Take 2 capsules by mouth once daily. Nebulizer NEBULIZER FOR HOME USE. DX: Asthma (Patient taking differently: NEBULIZER FOR HOME USE. DX: Asthma) clonazePAM (KLONOPIN) 1 mg tablet Take 1 tablet by mouth three times daily as needed for Anxiety. Per QUEtiapine (SEROQUEL) 50 mg tablet Take 1 tablet by mouth daily at bedtime. Per (Patient taking differently: Take 50 mg by mouth daily at bedtime. 150 MG by mouth at bedtime) No current facility-administered medications on file prior to visit. Social History Social History Tobacco Use Smoking status: Every Day Packs/day: 1.50 Years: 29.00 Pack years: 43.50 Types: Cigarettes Smokeless tobacco: Never Vaping Use Vaping Use: Some days Substances: Nicotine, Flavoring Devices: SmartMoveble tank Substance Use Topics Alcohol use: No Drug use: No Review of Symptoms REVIEW OF SYSTEMS SEE HPI EXAM: BP 110/80 Pulse 76 Resp 16 Wt 70.3 kg (155 lb) SpO2 98% BMI 25.02 kg/m General Appearance: Well appearing, alert, in no acute distress, well-hydrated, well nourished.. Health Maintenance List MAMMOGRAM due on 05/06/2020 LUNG CANCER SCREENING Never done HEPATITIS B(1 of 3 - 3-dose series) due on 05/16/2023 COLORECTAL CANCER SCREENING due on 05/16/2023 SHINGRIX VACCINE(1 of 2) due on 05/16/2023 COVID-19 VACCINE(1) due on 11/15/2023 DILATED RETINAL EXAM due on 03/31/2023 INFLUENZA(Season Ended) due on 04/14/2023 DIABETIC FOOT EXAM due on 05/16/2023 HBA1C due on 05/16/2023 URINE ALBUMIN:CREATININE RATIO due on 11/15/2023 LDL CHOLESTEROL due on 11/15/2023 ANNUAL PCP TEAM CHRONIC DISEASE VISIT due on 11/15/2023 DTAP,TDAP,TD(2 - Td or Tdap) due on 10/26/2030 PNEUMOCOCCAL(3 - PPSV23 if available, else PCV20) due on 2036 SPIROMETRY Completed PAP TESTING Discontinued HPV TESTING Discontinued HEPATITIS C SCREENING Discontinued HIV SCREENING Discontinued ASSESSMENT/PLAN: 1. Vertigo - ICD9: 780.4, ICD10: R42 (primary diagnosis) - CONSULT TO PHYSICAL THERAPY - Continue meclizine 2. Urinary frequency - ICD9: 788.41, ICD10: R35.0 acute - UA positive for nichole esterase and hematuria - Send urine for culture - Patient education for prevention given - UA DIP, URINE (POC) - URINE CULTURE Oziel Chandler APRN.CNP documented in this encounter [facility] 12-02-2022 Miscellaneous Notes Patient notified. Mary Jimenez RN Attempted to contact patient but no answer and unable to leave a message as voicemail box is full. Will attempt to contact patient again later. Essie Valente RN Vaginal cultures are negative. She can try a OTC vaginal pH grinder set up operator product. Maricarmen Yap APRN.CNP documented in this encounter [facility] 12-01-2022 Note HNO ID: [id number] Author: Maricarmen Yap APRN.CNP Service: ? Author Type: Nurse Practitioner Type: Progress Notes Filed: 12/01/2022 4:16 PM Note Text: Emergency Management Director offered: Patient declines. Nara Beyer is a 52 year old female who presents for vaginal pruritis, burning, discharge, and odor for 1 month(s). She states that she doesn't feel the symptoms ever got better Vaginal discharge: moderate amount, foul smelling, and clear. Itching: YES Dyspareunia: Some Fever/chills: No Abdominal pain: No Bladder: currently being treated for UTI Bowel: No blood in stool, pain with BM, tarry stool, persistent diarrhea or constipation Are you currently taking any medications to treat vaginitis: Yes, Do you use feminine sprays, douches or deodorants: No Past medical, surgical, social history, medications and allergies reviewed and updated. OBJECTIVE: BP 106/72 Wt 150 lb 12.8 oz (68.4kg) GENERAL: Well developed, well nourished in no apparent distress PELVIC: external genitalia normal, normal Bartholin's glands, urethra, [place]'s glands, no vulvar lesions, physiologic discharge present, normal appearing perineal body and perianal region BIMANUAL: deferred. ASSESSMENT/PLAN: 1. Vaginal discharge - ICD9: 623.5, ICD10: N89.8 (primary diagnosis) - BACTERIAL VAGINOSIS AMPLIFICATION - ASHLY / TRICHOMONAS AMPLIFICATION 2. Vaginal odor - ICD9: 625.8, ICD10: N89.8 - BACTERIAL VAGINOSIS AMPLIFICATION - ASHLY / TRICHOMONAS AMPLIFICATION Will notify of results Maricarmen Yap APRN.JENN Medical Decision Making: Problems: Low: Acute, uncomplicated illness or injury Data: Unique test(s) ordered: 2 Risk: Low: Low risk from testing/treatment Medical Decision Making Level: 3 - Low [facility] 12-01-2022 History of Presen t illness Narrative Emergency Management Director offered: Patient declines. Nara Beyer is a 52 year old female who presents for vaginal pruritis, burning, discharge, and odor for 1 month(s). She states that she doesn't feel the symptoms ever got better Vaginal discharge: moderate amount, foul smelling, and clear. Itching: YES Dyspareunia: Some Fever/chills: No Abdominal pain: No Bladder: currently being treated for UTI Bowel: No blood in stool, pain with BM, tarry stool, persistent diarrhea or constipation Are you currently taking any medications to treat vaginitis: Yes, Do you use feminine sprays, douches or deodorants: No Past medical, surgical, social history, medications and allergies reviewed and updated. OBJECTIVE: BP 106/72 Wt 150 lb 12.8 oz (68.4kg) GENERAL: Well developed, well nourished in no apparent distress PELVIC: external genitalia normal, normal Bartholin's glands, urethra, [place]'s glands, no vulvar lesions, physiologic discharge present, normal appearing perineal body and perianal region BIMANUAL: deferred. ASSESSMENT/PLAN: 1. Vaginal discharge - ICD9: 623.5, ICD10: N89.8 (primary diagnosis) - BACTERIAL VAGINOSIS AMPLIFICATION - ASHLY / TRICHOMONAS AMPLIFICATION 2. Vaginal odor - ICD9: 625.8, ICD10: N89.8 - BACTERIAL VAGINOSIS AMPLIFICATION - ASHLY / TRICHOMONAS AMPLIFICATION Will notify of results Maricarmen Yap APRN.CNP Medical Decision Making: Problems: Low: Acute, uncomplicated illness or injury Data: Unique test(s) ordered: 2 Risk: Low: Low risk from testing/treatment Medical Decision Making Level: 3 - Low documented in this encounter [facility] 12-01-2022 Note HNO ID: [id number] Author: Nicolette Pierce MA Service: ? Author Type: Lunchroom Monitor Type: Progress Notes Filed: 12/01/2022 9:21 AM Note Text: Scan on 11/29/2022 5:49 PM by External Provider: X-ray Scan on 11/29/2022 5:51 PM by External Provider: CT Scan Scan on 11/29/2022 11:12 PM by External Provider: Consultation - Emergency Medicine Nicolette Pierce MA [facility] 12-01-2022 History of Presen t illness Narrative Scan on 11/29/2022 5:49 PM by External Provider: X-ray Scan on 11/29/2022 5:51 PM by External Provider: CT Scan Scan on 11/29/2022 11:12 PM by External Provider: Consultation - Emergency Medicine Nicolette Pierce MA documented in this encounter [facility] 11-16-2022 Miscellaneous Notes Pt called and is notified of providers results and instructions. Pt voices understanding. Paola Merida RN Let patient know that a1c has actually improved to 6.2%. no med changes needed. Cholesterol is still in good range. Trigs only mildly elevated. Vit D level is mildly low. I want her to start OTC vit D supplement at 5000 international unit(s) daily. Rest of labs are all pretty stable. documented in this encounter [facility] 11-14-2022 Note HNO ID: [id number] Author: Sherry Marrero PA-C Service: ? Author Type: Physician Boat Camp Operator Type: Progress Notes Filed: 11/15/2022 3:14 PM Note Text: Chief Complaint Patient presents with: 6 Month Exam HPI Nara Beyer is a 52 year old female who presents here today for Chronic Medical Conditions.. Patient with hx of DM2, hyperlipidemia, [place], alcoholism (since 2017), moyamoya, PAD, and those as below. Patient hasn't been following her diet well and isn't checking her blood sugars. She feels a little embarrassed because she has put herself on the back burner while trying to help her loved ones. She gets pain in her fingers with checking BG and would like to see if can get CBG monitor. Past medical history, appointments, medications, allergies reviewed. Previous Medical History PAST MEDICAL HISTORY Diagnosis Date Alcohol abuse 03/31/2018 ER 03/2017 [place] with alcoholic pancreatitis Alcoholism (HCC) 04/10/2018 Had quit drinking drink in 1995 and had been going to AA. Had a short relapse in 03/2018 Allergic rhinitis 12/15/2006 Balance problems 01/23/2017 Bilateral carotid artery disease (HCC) 01/07/2011 MRA 12/2013 unchanged from that of 2010. US 03/2016 Rt occluded, Lt 20-40% Carcinoma in situ of cervix uteri 2000 Carotid artery stenosis 09/16/2019 CVA (cerebral infarction) 12/2010 Diffuse cystic mastopathy 05/25/2005 Dysarthria 10/26/2020 After Moyamoya surgery 10/07/2020 Dyslipidemia Gastroesophageal reflux disease without esophagitis 03/30/2016 Generalized anxiety disorder Anxiety, Generalized Greater trochanteric bursitis of right hip 04/10/2018 Gross hematuria 11/07/2022 Cystoscopy Neg 10/2022 H/O: CVA (cerebrovascular accident) 09/06/2013 History of chronic pancreatitis 05/25/2005 Resolved after gall bladder removed. Left-sided weakness 01/23/2017 Chronic and residual from CVA 2006. Leg pain, bilateral 09/17/2018 Script given for support socks Major depression 05/25/[address] [facility]. 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 Dupont, , fax: [phone] Peripheral arterial disease (HCC) 02/26/2021 Dr. goldstein Positive PPD 09/17/2018 Per [facility] 09/2018, Getting chest x-ray 09/18/2018 and was neg and repeat PPD 01/2019 was neg Slurred speech 01/23/2017 Discussed [id number] and MRI was ok. 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 BYPASS GRAFT OTHR,CAROTID 08/14/2010 CONIZATION CERVIX W/WO DANDC RPR ELTRD EXC 08/14/2000 LEEP-Cervix DILATION AND CURETTAGE DXAND/THER NONOBSTETRIC 08/14/1989 Dilation AND curettage EDAS (ENCEPHALO RAYNE ARTERIO SYNAGIOSIS) Left 10/07/2020 [facility]: revascularization for Moyamoya disease LAPS SURG CHOLECYSTECTOMY W/CHOLANGIOGRAPHY 04/05/2007 LEXISCAN STRESS TEST 07/23/2020 Negative TONSILLECTOMY PRIMARY/SECONDARY Tonsillectomy TOTAL ABDOMINAL HYSTERECT W/WO RMVL TUBE OVARY Hysterectomy, NEW/LSO Family History FAMILY HISTORY Problem Relation Age of Onset Hypertension Mother Heart Father Diabetes Brother 1/2 brother Patient Allergies ALLERGIES Allergen Reactions Bactrim [Sulfametho* Hives Gabapentin Hives Doxycycline Unknown Abilify [Aripiprazo* Other: See Comments cannot sit still and makes anxiety worse. Ambien [Zolpidem] Intolerance Made her jittery Eggs [Other] Unknown Erythromycin Other: See Comments nausea and lightheadedness Flexeril [Cyclobenz* Other: See Comments dry mouth and drosey. Glucophage [Metform* Other: See Comments Diarrhea, even with XR Lorazepam Mental Status Change Note that helped with panic attacks, but caused anger reaction Metformin Other: See Comments Stomach pain an diarrhea Penicillins Rash Trazodone Intolerance Made her more jittery and anxious Wellbutrin Sr [Bupr* Intolerance Made her aggresssive Zithromax [Azithrom* Rash, Diarrhea, GI Upset However, willign to take for acute bronchitis as it is effective Current Medications Current Outpatient Medications on File Prior to Visit Medication Sig atorvastatin (LIPITOR) 80 mg tablet Take 1 tablet by mouth daily at bedtime. clopidogrel (PLAVIX) 75 mg tablet Take 1 tablet by mouth once daily. glimepiride (AMARYL) 2 mg tablet Take 2 mg by (more content not included)... [facility] 11-14-2022 Miscellaneous Notes Please send Jacqueline 2 to the pharmacy. documented in this encounter [facility] 11-08-2022 Miscellaneous Notes Spoke with pt and was notified that another round of medication was sent into her pharmacy. Pt will call for an appointment if she does not have improvement in her symptoms with this course of medication. [place] Jara LPN I sent in another round of the metrogel for her. Maricarmen Yap APRN.CNP Patient was prescribed Metrogel for bv 10/27/2022 and called stating that she used metrogel as directed and symptoms never resolved. Is c/o vaginal itching and a discharge with odor, documented in this encounter [facility] 11-07-2022 Note HNO ID: [id number] Author: Mohan Gregory MD Service: ? Author Type: Physician Type: Procedures Filed: 11/07/2022 2:03 PM Note Text: CYSTOSCOPY PROCEDURE NOTE: PRE-OP/PRE-PROCEDURE DIAGNOSIS: Hematuria POST-OP/POST-PROCEDURE DIAGNOSIS: Hematuria SURGERY/PROCEDURE(S): Cystoscopy Nara Beyer is a 52 year old female who presents with Hematuria gross for cystoscopy. Pt ID verified with patient: Yes Procedure verified with patient: Yes Procedure confirmed with physician and production support developer: Yes UNIVERSAL PROTOCOL / SAFETY CHECKLIST Procedure to be Performed: Cystoscopy Sign In: A Moment of CARE was completed. Personnel directly involved with the procedure wore the appropriate PPE (Personal Protective Equipment). Patient/Surrogate Stated/Verified: PATIENT VERIFIED(optional for EMERGENT procedures): Patient name, Date of , Relevant allergies, and The intended procedure Time Out Communication: Intended patient and procedure match the source documents. Consent documented and matches the intended procedure. Sign Out: SIGN OUT (optional for EMERGENT procedures): No specimen collected. Mohan Gregory MD A urinalysis was performed revealing no evidence of infection. The benefits, risks, alternatives of the cystoscopy procedure and personnel were discussed with the patient. The verbal consent was obtained and the patient agrees to proceed. Procedure: The patient was placed on the procedure table in the supine position and prepped and draped in the usual sterile fashion. 2% Lidocaine Jelly was placed per urethra as an anesthetic in the standard fashion. Once adequate local anesthesia was achieved, the tip of the flexible cystoscope was carefully placed into the urethra under direct visual guidance. with no evidence of stricture. The bladder was entered and careful richard endoscopy was carried out. The posterior, superior and lateral [place] and dome of the bladder were all well visualized and the scope was retroflexed upon itself. The findings were consistent with no evidence of bladder mucosal pathology. The findings were consistent with smooth, not trabeculated. At the conclusion of the procedure, the flexible cystoscope was removed atraumatically. The patient tolerated the procedure without complications. Patient was given standard post-procedure instructions, and was directed to complete the course of oral antibiotics and increase oral fluid intake as directed. IMPRESSION: Gross hematuria Complete work-up is negative PLAN: Follow-up as needed Mohan Gregory MD Electronically Signed: Mohan Gregory MD November 07, 2022 1:59 PM This note was partially created using voice recognition software and is inherently subject to errors including those of syntax and sound-alike substitutions which may escape proofreading. In such instances, original meaning may be extrapolated by contextual derivation. [facility] 11-07-2022 Procedure note CYSTOSCOPY PROCEDURE NOTE: PRE-OP/PRE-PROCEDURE DIAGNOSIS: Hematuria POST-OP/POST-PROCEDURE DIAGNOSIS: Hematuria SURGERY/PROCEDURE(S): Cystoscopy Nara Beyer is a 52 year old female who presents with Hematuria gross for cystoscopy. Pt ID verified with patient: Yes Procedure verified with patient: Yes Procedure confirmed with physician and production support developer: Yes UNIVERSAL PROTOCOL / SAFETY CHECKLIST Procedure to be Performed: Cystoscopy Sign In: A Moment of CARE was completed. Personnel directly involved with the procedure wore the appropriate PPE (Personal Protective Equipment). Patient/Surrogate Stated/Verified: PATIENT VERIFIED(optional for EMERGENT procedures): Patient name, Date of , Relevant allergies, and The intended procedure Time Out Communication: Intended patient and procedure match the source documents. Consent documented and matches the intended procedure. Sign Out: SIGN OUT (optional for EMERGENT procedures): No specimen collected. Mohan Gregory MD A urinalysis was performed revealing no evidence of infection. The benefits, risks, alternatives of the cystoscopy procedure and personnel were discussed with the patient. The verbal consent was obtained and the patient agrees to proceed. Procedure: The patient was placed on the procedure table in the supine position and prepped and draped in the usual sterile fashion. 2% Lidocaine Jelly was placed per urethra as an anesthetic in the standard fashion. Once adequate local anesthesia was achieved, the tip of the flexible cystoscope was carefully placed into the urethra under direct visual guidance. with no evidence of stricture. The bladder was entered and careful richard endoscopy was carried out. The posterior, superior and lateral murrieta and dome of the bladder were all well visualized and the scope was retroflexed upon itself. The findings were consistent with no evidence of bladder mucosal pathology. The findings were consistent with smooth, not trabeculated. At the conclusion of the procedure, the flexible cystoscope was removed atraumatically. The patient tolerated the procedure without complications. Patient was given standard post-procedure instructions, and was directed to complete the course of oral antibiotics and increase oral fluid intake as directed. IMPRESSION: Gross hematuria Complete work-up is negative PLAN: Follow-up as needed Mohan Gregory MD Electronically Signed: Mohan Gregory MD November 07, 2022 1:59 PM This note was partially created using voice recognition software and is inherently subject to errors including those of syntax and sound-alike substitutions which may escape proofreading. In such instances, original meaning may be extrapolated by contextual derivation. documented in this encounter [facility] 11-07-2022 Miscellaneous Notes Patient has been identified by name and date of : Yes Requested Prescriptions Pending Prescriptions Disp Refills atorvastatin (LIPITOR) 80 mg tablet 90 tablet 1 Sig: Take 1 tablet by mouth daily at bedtime. clopidogrel (PLAVIX) 75 mg tablet 90 tablet 1 Sig: Take 1 tablet by mouth once daily. RX INSTRUCTIONS: Patient aware RX will be sent to pharmacy. No need to notify patient. Nicolette Pierce MA Diana: 05/2022 Nov: 11/2022 Last refill; 05/2022 Pharmacy verified in [facility] Patient has been identified by name and date of : Yes Patient aware RX will be sent to pharmacy. No need to notify patient. Patient phones for refill(s): Requested Prescriptions Pending Prescriptions Disp Refills atorvastatin (LIPITOR) 80 mg tablet 90 tablet 1 Sig: Take 1 tablet by mouth daily at bedtime. clopidogrel (PLAVIX) 75 mg tablet 90 tablet 1 Sig: Take 1 tablet by mouth once daily. Date of last office visit : 08/03/2022 Date of next office visit : 11/14/2022 Last 2 Encounter Wt Readings: Date: Wt: 10/25/2022 70 kg (154 lb 6.4 oz) 10/07/2022 68 kg (150 lb) Please advise. Mary Schulz Pss documented in this encounter [facility] 10-27-2022 Miscellaneous Notes Left detailed message on identified voicemail. Mary Jimenez RN Please let the pt know that she is still +BV. I will send in Metrogel for her. Maricarmen Yap APRN.CNP documented in this encounter [facility] 10-25-2022 Note HNO ID: [id number] Author: Maricarmen Yap APRN.CNP Service: ? Author Type: Nurse Practitioner Type: Progress Notes Filed: 10/25/2022 4:01 PM Note Text: Nara Beyer is a 52 year old female who presents for vaginal pruritis, burning, and discharge for 1 month(s). Vaginal discharge: moderate amount, foul smelling, white, and yellow. Itching: YES Dyspareunia: N/A Fever/chills: No Abdominal pain: Yes, little cramping Bladder: Negative for dysuria or frequency Bowel: No blood in stool, pain with BM, tarry stool, persistent diarrhea or constipation Any new sexual partners or concern for STD exposure: No Are you currently taking any medications to treat vaginitis: No Do you use feminine sprays, douches or deodorants: No Past medical, surgical, social history, medications and allergies reviewed and updated. OBJECTIVE: Wt 154 lb 6.4 oz (70.0kg) GENERAL: Well developed, well nourished in no apparent distress PELVIC: external genitalia normal, normal Bartholin's glands, urethra, [place]'s glands, no vulvar lesions, physiologic discharge present, normal appearing perineal body and perianal region ASSESSMENT/PLAN: 1. Vagina itching - ICD9: 698.1, ICD10: N89.8 - ASHLY / TRICHOMONAS AMPLIFICATION - BACTERIAL VAGINOSIS AMPLIFICATION - will notify of results Maricarmen Yap APRN.CNP Medical Decision Making: Problems: Low: Acute, uncomplicated illness or injury Data: Unique test(s) ordered: 2 Risk: Low: Low risk from testing/treatment Medical Decision Making Level: 3 - Low [facility] 10-25-2022 History of Presen t illness Narrative Nara Beyer is a 52 year old female who presents for vaginal pruritis, burning, and discharge for 1 month(s). Vaginal discharge: moderate amount, foul smelling, white, and yellow. Itching: YES Dyspareunia: N/A Fever/chills: No Abdominal pain: Yes, little cramping Bladder: Negative for dysuria or frequency Bowel: No blood in stool, pain with BM, tarry stool, persistent diarrhea or constipation Any new sexual partners or concern for STD exposure: No Are you currently taking any medications to treat vaginitis: No Do you use feminine sprays, douches or deodorants: No Past medical, surgical, social history, medications and allergies reviewed and updated. OBJECTIVE: Wt 154 lb 6.4 oz (70.0kg) GENERAL: Well developed, well nourished in no apparent distress PELVIC: external genitalia normal, normal Bartholin's glands, urethra, [place]i's glands, no vulvar lesions, physiologic discharge present, normal appearing perineal body and perianal region ASSESSMENT/PLAN: 1. Vagina itching - ICD9: 698.1, ICD10: N89.8 - ASHLY / TRICHOMONAS AMPLIFICATION - BACTERIAL VAGINOSIS AMPLIFICATION - will notify of results Maricarmen Yap APRN.CNP Medical Decision Making: Problems: Low: Acute, uncomplicated illness or injury Data: Unique test(s) ordered: 2 Risk: Low: Low risk from testing/treatment Medical Decision Making Level: 3 - Low documented in this encounter [facility] 10-07-2022 Note HNO ID: [id number] Author: Leona Cedillo PA-C Service: ? Author Type: Physician Boat Camp Operator Type: Progress Notes Filed: 10/07/2022 5:59 PM Note Text: [facility] ESTABLISHED PATIENT CLINIC NOTE Some elements copied from his previous note, which have been updated where appropriate, and all reflect current medical decision making from date of this visit. SERVICE DATE: 10/07/2022 SERVICE TIME: 2:35 PM NAME: Nara Beyer CHIEF COMPLAINT: Gross Hematuria HISTORY OF PRESENT ILLNESS: Nara Beyer is a 52 year old female an established patient following up for Gross Hematuria The patient reports she had cancelled 2 scheduled appointments for Cystoscopy, I again recommended she Have the Cystoscopy CASTILLO, to complete the full work-up Reviewed her testing so far in detail , with no obvious urinary cause for blood so far LUTS: No further gross hematuria Other symptoms: LABS: Hematocrit (%) Date Value 03/01/2022 46.0 02/16/2022 43.0 10/29/2021 50.5 03/01/2021 43.8 10/26/2020 42.3 07/07/2020 44.7 10/07/2019 45.6 No results found for: PSA No results found for: TESTOST No results found for: PSA Creatinine Date Value Ref Range Status 09/23/2022 0.80 0.58 - 0.96 mg/dL Final 03/01/2022 0.93 0.58 - 0.96 mg/dL Final 02/16/2022 0.94 0.58 - 0.96 mg/dL Final 10/29/2021 0.89 0.58 - 0.96 mg/dL Final MEDICATIONS: metroNIDAZOLE (FLAGYL) 500 mg tablet Take 1 tablet by mouth twice daily for 7 days. glimepiride (AMARYL) 2 mg tablet Take 2 mg by mouth daily with breakfast. albuterol HFA (PROAIR HFA) 90 mcg/actuation inhaler Inhale 2 Puffs as instructed every 4 hours as needed. iv contrast (will be provided with radiology test) CT Urogram WO/W Inject, intravenously, once for 1 dose.No IV access, insert saline lock prior to the beginning of sedation, infusion, injection of imaging exam. Discontinue saline lock post exam. If Pt. has a central line or IVAD, may access for administration according to line specific nursing protocol. Once exam is complete flush line and de-access according to line specific nursing protocol in the CT contrast administration guidelines link. empagliflozin (JARDIANCE) 25 mg tablet Take 1 tablet by mouth once daily. Take 1 tablet once daily in the morning phenazopyridine (PYRIDIUM) 200 mg tablet Take 1 tablet by mouth three times daily as needed. atorvastatin (LIPITOR) 80 mg tablet Take 1 tablet by mouth daily at bedtime. clopidogrel (PLAVIX) 75 mg tablet Take 1 tablet by mouth once daily. glimepiride (AMARYL) 4 mg tablet TAKE ONE TABLETS BY MOUTH ONCE DAILY WITH BREAKFAST pantoprazole DR (PROTONIX) 40 mg tablet Take 1 tablet by mouth twice daily. Take on empty stomach, 1/2 hr before meal. zonisamide (ZONEGRAN) 25 mg capsule Take 1 capsule by mouth once daily. PEG 400-propylene glycol (SYSTANE ULTRA) 0.4-0.3 % ophthalmic solution Use 1 Drop in both eyes twice daily. (Patient taking differently: Use 1 Drop in both eyes twice daily. As needed) blood sugar diagnostic (BLOOD GLUCOSE TEST) test strip Test blood sugar(s) 1 times daily. Dx: Other DM Code E11.3219 Insulin: No Lancets lancets Test blood sugar(s) 1 times daily. Dx: Other DM Code E11.3219 Insulin: No baclofen (LIORESAL) 10 mg tablet Take 1 tablet by mouth twice daily as needed (muscle spasms). cholecalciferol, Vitamin D3, (VITAMIN D3) 1,250 mcg (50,000 unit) cap capsule Take 1 capsule by mouth one time a week. blood sugar diagnostic (BLOOD GLUCOSE TEST) test strip Test blood sugar(s) 1 times daily. Dx: Other DM Code E11.3219 Insulin: No Blood-Glucose Sensor (DEXCOM G6 SENSOR) fern Check blood sugar once a day Dx: E11.3219 no insulin lancets (FREESTYLE LANCETS) 28 gauge Test blood sugar(s) 1 times daily. Dx: 250.0. Insulin: No omega-3 fatty acids 1,000 mg cap Take 2 capsules by mouth once daily. Nebulizer NEBULIZER FOR HOME USE. DX: Asthma (Patient taking differently: NEBULIZER FOR HOME USE. DX: Asthma) clonazePAM (KLONOPIN) 1 mg tablet Take 1 tablet by mouth three times daily as needed for Anxiety. Per QUEtiapine (SEROQUEL) 50 mg tablet Take 1 tablet by mouth daily at bedtime. Per (Patient taking differently: Take 50 mg by mouth daily at bedtime. 150 MG by mouth at bedtime) PAST MEDICAL HISTORY: PAST MEDICAL HISTORY Diagnosis Date Alcohol abuse 03/31/2018 ER 03/2017 [place] with alcoholic pancreatitis Alcoholism (HCC) 04/10/2018 Had quit drinking drink in 1995 and had been going to . Had a short relapse in 03/2018 Allergic rhinitis 12/15/2006 Balance problems 01/23/2017 Bilateral carotid artery disease (HCC) 01/07/2011 MRA 12/2013 unchanged from that of 2010. US 03/2016 Rt occluded, Lt 20-40% Carcinoma in situ of cervix uteri 2000 Carotid artery stenosis 09/16/2019 CVA (cerebral infarction) 12/2010 Diffuse cystic mastopathy 05/25/2005 Dysarthria 10/12 (more content not included)... [facility] 10-07-2022 Note HNO ID: [id number] Author: Eugenia Zendejas RN Service: ? Author Type: Registered Nurse Type: Progress Notes Filed: 10/07/2022 5:59 PM Note Text: CC Post Void Residual HPI: Nara Beyer is a 52 year old female. The patient is here now for an appointment with Leona Cedillo, [place], [place], PA-COV. Procedure: Explained procedure to patient and verbalizes understanding. Performed a PVR. Patient urinated and instructed to empty bladder as much as possible just prior to having PVR done using bladder ultrasound scanner. Results of scan: x 17 mL The patient tolerated the procedure well. Plan: Appointment with Leona. [facility] 10-07-2022 Miscellaneous Notes Pt rescheduled her cysto with Dr. Gregory @ [facility] 11/07/22 @ 1:30. Ines documented in this encounter [facility] 10-07-2022 Instructions Leona Cedillo PA-C - 10/07/2022 2:59 PM EST > Need to schedule Cystoscopy documented in this encounter [facility] 10-07-2022 History of Presen t illness Narrative Images from the original note were not included. [facility] ESTABLISHED PATIENT CLINIC NOTE Some elements copied from his previous note, which have been updated where appropriate, and all reflect current medical decision making from date of this visit. SERVICE DATE: 10/07/2022 SERVICE TIME: 2:35 PM NAME: Nara Beyer CHIEF COMPLAINT: Gross Hematuria HISTORY OF PRESENT ILLNESS: Nara Beyer is a 52 year old female an established patient following up for Gross Hematuria The patient reports she had cancelled 2 scheduled appointments for Cystoscopy, I again recommended she Have the Cystoscopy CASTILLO, to complete the full work-up Reviewed her testing so far in detail , with no obvious urinary cause for blood so far LUTS: No further gross hematuria Other symptoms: LABS: Hematocrit (%) Date Value 03/01/2022 46.0 02/16/2022 43.0 10/29/2021 50.5 03/01/2021 43.8 10/26/2020 42.3 07/07/2020 44.7 10/07/2019 45.6 No results found for: PSA No results found for: TESTOST No results found for: PSA Creatinine Date Value Ref Range Status 09/23/2022 0.80 0.58 - 0.96 mg/dL Final 03/01/2022 0.93 0.58 - 0.96 mg/dL Final 02/16/2022 0.94 0.58 - 0.96 mg/dL Final 10/29/2021 0.89 0.58 - 0.96 mg/dL Final MEDICATIONS: metroNIDAZOLE (FLAGYL) 500 mg tablet Take 1 tablet by mouth twice daily for 7 days. glimepiride (AMARYL) 2 mg tablet Take 2 mg by mouth daily with breakfast. albuterol HFA (PROAIR HFA) 90 mcg/actuation inhaler Inhale 2 Puffs as instructed every 4 hours as needed. iv contrast (will be provided with radiology test) CT Urogram WO/W Inject, intravenously, once for 1 dose.No IV access, insert saline lock prior to the beginning of sedation, infusion, injection of imaging exam. Discontinue saline lock post exam. If Pt. has a central line or IVAD, may access for administration according to line specific nursing protocol. Once exam is complete flush line and de-access according to line specific nursing protocol in the CT contrast administration guidelines link. empagliflozin (JARDIANCE) 25 mg tablet Take 1 tablet by mouth once daily. Take 1 tablet once daily in the morning phenazopyridine (PYRIDIUM) 200 mg tablet Take 1 tablet by mouth three times daily as needed. atorvastatin (LIPITOR) 80 mg tablet Take 1 tablet by mouth daily at bedtime. clopidogrel (PLAVIX) 75 mg tablet Take 1 tablet by mouth once daily. glimepiride (AMARYL) 4 mg tablet TAKE ONE TABLETS BY MOUTH ONCE DAILY WITH BREAKFAST pantoprazole DR (PROTONIX) 40 mg tablet Take 1 tablet by mouth twice daily. Take on empty stomach, 1/2 hr before meal. zonisamide (ZONEGRAN) 25 mg capsule Take 1 capsule by mouth once daily. PEG 400-propylene glycol (SYSTANE ULTRA) 0.4-0.3 % ophthalmic solution Use 1 Drop in both eyes twice daily. (Patient taking differently: Use 1 Drop in both eyes twice daily. As needed) blood sugar diagnostic (BLOOD GLUCOSE TEST) test strip Test blood sugar(s) 1 times daily. Dx: Other DM Code E11.3219 Insulin: No Lancets lancets Test blood sugar(s) 1 times daily. Dx: Other DM Code E11.3219 Insulin: No baclofen (LIORESAL) 10 mg tablet Take 1 tablet by mouth twice daily as needed (muscle spasms). cholecalciferol, Vitamin D3, (VITAMIN D3) 1,250 mcg (50,000 unit) cap capsule Take 1 capsule by mouth one time a week. blood sugar diagnostic (BLOOD GLUCOSE TEST) test strip Test blood sugar(s) 1 times daily. Dx: Other DM Code E11.3219 Insulin: No Blood-Glucose Sensor (DEXCOM G6 SENSOR) fern Check blood sugar once a day Dx: E11.3219 no insulin lancets (FREESTYLE LANCETS) 28 gauge Test blood sugar(s) 1 times daily. Dx: 250.0. Insulin: No omega-3 fatty acids 1,000 mg cap Take 2 capsules by mouth once daily. Nebulizer NEBULIZER FOR HOME USE. DX: Asthma (Patient taking differently: NEBULIZER FOR HOME USE. DX: Asthma) clonazePAM (KLONOPIN) 1 mg tablet Take 1 tablet by mouth three times daily as needed for Anxiety. Per QUEtiapine (SEROQUEL) 50 mg tablet Take 1 tablet by mouth daily at bedtime. Per (Patient taking differently: Take 50 mg by mouth daily at bedtime. 150 MG by mouth at bedtime) PAST MEDICAL HISTORY: PAST MEDICAL HISTORY Diagnosis Date Alcohol abuse 03/31/2018 ER 03/2017 [place] with alcoholic pancreatitis Alcoholism (HCC) 04/10/2018 Had quit drinking drink in 1995 and had been going to . Had a short relapse in 03/2018 Allergic rhinitis 12/15/2006 Balance problems 01/23/2017 Bilateral carotid artery disease (HCC) 01/07/2011 MRA 12/2013 unchanged from that of 2010. US 03/2016 Rt occluded, Lt 20-40% Carcinoma in situ of cervix uteri 2000 Carotid artery stenosis 09/16/2019 CVA (cerebral infarction) 12/2010 Diffuse cystic mastopathy 05/25/2005 Dysarthria 10/26/2020 After [place] surgery 10/07/2020 Dyslipidemia Gastroesophageal reflux disease without esophagitis 03/30/2016 Generalized anxiety disorder Anxiety, Generalized Greater trochanteric bursitis of right hip 04/10/2018 H/O: CVA (cerebrovascular accident) 09/06/2013 History of chronic pancreatitis 05/25/2005 Resolved after gall bladder removed. Left-sided weakness 01/23/2017 Chronic and residual from CVA 2006. Leg pain, bilateral 09/17/2018 Script given for support socks Major depression 05/25/[address] [facility]. 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 Dupont, , fax: [phone] Peripheral arterial disease (HCC) 02/26/2021 Dr. goldstein Positive PPD 09/17/2018 Per [facility] 09/2018, Getting chest x-ray 09/18/2018 and was neg and repeat PPD 01/2019 was neg Slurred speech 01/23/2017 Discussed and MRI was ok. 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 BYPASS GRAFT OTHR,CAROTID 08/14/2010 CONIZATION CERVIX W/WO D&C RPR ELTRD EXC 08/14/2000 LEEP-Cervix DILATION & CURETTAGE DX&/THER NONOBSTETRIC 08/14/1989 Dilation & curettage EDAS (ENCEPHALO RAYNE ARTERIO SYNAGIOSIS) Left 10/07/2020 [facility]: revascularization for [place] disease LAPS SURG CHOLECYSTECTOMY W/CHOLANGIOGRAPHY 04/05/2007 LEXISCAN STRESS TEST 07/23/2020 Negative TONSILLECTOMY PRIMARY/SECONDARY <AGE 12 Tonsillectomy TOTAL ABDOMINAL HYSTERECT W/WO RMVL TUBE OVARY Hysterectomy, NEW/LSO FAMILY HISTORY: FAMILY HISTORY Problem Relation Age of Onset Hypertension Mother Heart Father Diabetes Brother 1/2 brother SOCIAL HISTORY: Social Connections: Not on file REVIEW OF SYSTEMS: GENERAL: No fever, chills, weight loss, or fatigue. All other systems reviewed and are negative PHYSICAL EXAMINATION: Blood pressure 140/80, pulse 99, temperature 36.4 C (97.5 F), temperature source Temporal, resp. rate 16, height 165.1 cm (5' 5 ), weight 68 kg (150 lb), SpO2 97 %. GENERAL: WNL nutrition, no deformities, healthy appearing PROBLEM LIST REVIEW: Yes LABS: Results for orders placed or performed in visit on 10/07/22 UA DIP, URINE (POC) Result Value Ref Range GLUCOSE UA (POCT) 500 (A) Negative mg/dL BILIRUBIN UA (POCT) Negative Negative KETONE UA (POCT) Negative Negative mg/dL SPECIFIC GRAVITY UA (POCT) >=1.030 1.005 - 1.030 HEMOGLOBIN/BLOOD UA (POCT) Moderate (A) Negative PH UA (POCT) 5.0 4.5 - 8.0 PROTEIN UA (POCT) Negative Negative mg/dL UROBILINOGEN UA (POCT) 0.2 Normal E.U./dL NITRITE UA (POCT) Negative Negative LEUKOCYTES UA (POCT) Small (A) Negative COLOR UA (POCT) Other CLARITY UA (POCT) Cloudy Urine Culture - Neg Urine Cytology - Neg PROCEDURES: IMAGING: CTU 10/06/22 IMPRESSION: No urinary tract calculus, solid renal mass or upper urothelial tract lesion. IMPRESSION/PLAN: 52 year old female with 1. Gross hematuria - ICD9: 599.71, ICD10: R31.0 > Cystoscopy re-ordered and stress the need to complete the hematuria work-up LIDIA Navarrete MT, KAMILLA CC Post Void Residual HPI: Nara Beyer is a 52 year old female. The patient is here now for an appointment with LIDIA Navarrete MT, PA-COV. Procedure: Explained procedure to patient and verbalizes understanding. Performed a PVR. Patient urinated and instructed to empty bladder as much as possible just prior to having PVR done using bladder ultrasound scanner. Results of scan: x 17 mL The patient tolerated the procedure well. Plan: Appointment with Leona. documented in this encounter [facility] 10-04-2022 Miscellaneous Notes Patient notified of results, verbalizes understanding of instructions. Essie Valente RN Left message for patient to call office. Raysa Valenzuela RN BV positive. To treat with Flagyl 500mg PO BID for 7 days. 1) No alcohol during treatment and for 24 hours after last dose. 2) No intercourse during treatment. 3) Probiotic by mouth once daily for 30 days or as needed. Maricarmen Yap APRN.CNP documented in this encounter [facility] 10-03-2022 Note HNO ID: [id number] Author: Maricarmen Yap APRN.CNP Service: ? Author Type: Nurse Practitioner Type: Progress Notes Filed: 10/03/2022 3:02 PM Note Text: Nara Beyer is a 52 year old female who presents for vaginal pruritis, discharge, and odor for 3 week(s). Vaginal discharge: moderate amount, foul smelling, white, and yellow. Itching: YES Dyspareunia: N/A Fever/chills: No Abdominal pain: Yes, cramping Bladder: Negative for dysuria or frequency Bowel: No blood in stool, pain with BM, tarry stool, persistent diarrhea or constipation Any new sexual partners or concern for STD exposure: No Are you currently taking any medications to treat vaginitis: No Do you use feminine sprays, douches or deodorants: No Past medical, surgical, social history, medications and allergies reviewed and updated. OBJECTIVE: Wt 149 lb 9.6 oz (67.9kg) GENERAL: Well developed, well nourished in no apparent distress PELVIC: external genitalia normal, normal Bartholin's glands, urethra, [place]'s glands, no vulvar lesions, physiologic discharge present, normal appearing perineal body and perianal region, cervix surgically absent BIMANUAL: deferred. ASSESSMENT/PLAN: 1. Vaginal discharge - ICD9: 623.5, ICD10: N89.8 - ASHLY / TRICHOMONAS AMPLIFICATION - BACTERIAL VAGINOSIS AMPLIFICATION - will call with results - follow up as needed Maricarmen Yap APRN.CNP Medical Decision Making: Problems: Low: Acute, uncomplicated illness or injury Data: Unique test(s) ordered: 2 Risk: Low: Low risk from testing/treatment Medical Decision Making Level: 3 - Low [facility] 10-03-2022 History of Presen t illness Narrative Nara Beyer is a 52 year old female who presents for vaginal pruritis, discharge, and odor for 3 week(s). Vaginal discharge: moderate amount, foul smelling, white, and yellow. Itching: YES Dyspareunia: N/A Fever/chills: No Abdominal pain: Yes, cramping Bladder: Negative for dysuria or frequency Bowel: No blood in stool, pain with BM, tarry stool, persistent diarrhea or constipation Any new sexual partners or concern for STD exposure: No Are you currently taking any medications to treat vaginitis: No Do you use feminine sprays, douches or deodorants: No Past medical, surgical, social history, medications and allergies reviewed and updated. OBJECTIVE: Wt 149 lb 9.6 oz (67.9kg) GENERAL: Well developed, well nourished in no apparent distress PELVIC: external genitalia normal, normal Bartholin's glands, urethra, [place]'s glands, no vulvar lesions, physiologic discharge present, normal appearing perineal body and perianal region, cervix surgically absent BIMANUAL: deferred. ASSESSMENT/PLAN: 1. Vaginal discharge - ICD9: 623.5, ICD10: N89.8 - ASHLY / TRICHOMONAS AMPLIFICATION - BACTERIAL VAGINOSIS AMPLIFICATION - will call with results - follow up as needed Maricarmen Yap APRN.CNP Medical Decision Making: Problems: Low: Acute, uncomplicated illness or injury Data: Unique test(s) ordered: 2 Risk: Low: Low risk from testing/treatment Medical Decision Making Level: 3 - Low documented in this encounter [facility] 09-23-2022 Note HNO ID: [id number] Author: RT Brad(R) Service: ? Author Type: Spark Tester Type: Progress Notes Filed: 09/23/2022 3:24 PM Note Text: Radiology Service Progress Note DATE OF SERVICE: September 23, 2022 TIME: 3:23 PM PATIENT IDENTITY VERIFICATION COMPLETED USING TWO (2) STANDARD IDENTIFIERS: Name and Date of confirmed by patient verbally. FALL SCREENING: Has the patient had 2 falls in the last year or 1 fall with injury or currently using an Ambulatory Assistive Device (Walker, Cane, Wheelchair, Crutches, etc.)? No PATIENT GENDER DATA: Female. status: : No status: NO. PATIENT RELEVANT IMPLANT DATA REVIEWED: Yes ALLERGIES: Reviewed and unchanged CONTRAST ALLERGY: NO. EXAM: CT -CONTRAST INDUCED NEPHROPATHY RISK FACTORS: Not applicable CREATININE: Creatinine Date Value Ref Range Status 09/23/2022 0.80 0.58 - 0.96 mg/dL Final 03/01/2022 0.93 0.58 - 0.96 mg/dL Final 02/16/2022 0.94 0.58 - 0.96 mg/dL Final Estimated Glomerular Filtration Rate Date Value Ref Range Status 09/23/2022 89 >=60 mL/min/1.73m? Final Comment: Estimated Glomerular Filtration Rate (eGFR) is calculated using the 2020 CKD-EPI creatinine equation. This equation utilizes serum creatinine, sex, and age as parameters. The creatinine assay has traceable calibration to isotope dilution-mass spectrometry. Refer to KDIGO guidelines for clinical interpretation. In patients with unstable renal function, e.g. those with acute kidney injury, the eGFR may not accurately reflect actual GFR. eGFR- Date Value Ref Range Status 03/01/2021 >60 Final P.O.C.T. RESULTS: POC done: Yes, See Lab Tab September 23, 2022 TREATMENT: N/A PERIPHERAL IV DATA: Ambulatory: A peripheral IV was started in the Left antecubital site with a Angio cath: 22 gauge. RADIOLOGY DEPARTMENT: CT; Exam(s) Completed: urogram SIGNATURE: RT Jackelin(R) PATIENT NAME: Nara Beyer DATE: September 23, 2022 TIME: 3:[address] [facility] 09-06-2022 Influenza virus A and B RNA and SARS-CoV-2 (COVID-19) N gene panel EMILY+probe (Resp) COVID 19 RESULT: SARS-CoV-2 (Agent of COVID-19) Not Detected by RT-PCR or equivalent method. This test was developed and its performance characteristics determined by [facility] [place]. This test has been authorized by FDA under an Emergency Use Authorization (EUA). This test has been validated in accordance with the FDA's Guidance Document Policy for Diagnostics Testing in Laboratories Certified to Perform High Complexity Testing under CLIA prior to Emergency use Authorization for Coronavirus Disease 2019 during the Public Health Emergency issued on October 12, 2019. Test performed by [facility], [facility] [place], [facility] [place] [address]. INFLUENZA A PCR: Negative for Influenza A by RT-PCR INFLUENZA B PCR: Negative for Influenza B by RT-PCR [facility] documented as of this encounter (statuses as of 10/31/2021) [facility] History of Past illness Narrative* Problem Noted Date Resolved Date Encounter for screening mammogram for breast can cer 09/05/2017 09/16/2019 Diabetic eye exam 04/19/2016 09/16/2019 Overview: Last done: 04/08/2016 mild non-proliferative diabetic retinopathy Bilateral carotid artery disease 01/07/2011 09/16/2019 Overview: MRA 12/2013 unchanged from that of 2010. US 03/2016 Rt occluded, Lt 20-40%, US 04/2019 unchanged Anxiety state, unspecified 05/25/200508/30 documented as of this encounter (statuses as of 11/01/2021) [facility] History of Past illness Narrative* Problem Noted Date Resolved Date Encounter for screening mammogram for breast can cer 09/05/2017 09/16/2019 Diabetic eye exam 04/19/2016 09/16/2019 Overview: Last done: 04/08/2016 mild non-proliferative diabetic retinopathy Bilateral carotid artery disease 01/07/2011 09/16/2019 Overview: MRA 12/2013 unchanged from that of 2010. US 03/2016 Rt occluded, Lt 20-40%, US 04/2019 unchanged Anxiety state, unspecified 05/25/200508/30 documented as of this encounter (statuses as of 11/12/2021) [facility] History of Past illness Narrative* Problem Noted Date Resolved Date Encounter for screening mammogram for breast can cer 09/05/2017 09/16/2019 Diabetic eye exam 04/19/2016 09/16/2019 Overview: Last done: 04/08/2016 mild non-proliferative diabetic retinopathy Bilateral carotid artery disease 01/07/2011 09/16/2019 Overview: MRA 12/2013 unchanged from that of 2011. US 03/2016 Rt occluded, Lt 20-40%, US 04/2019 unchanged Anxiety state, unspecified 05/25/200508/30 documented as of this encounter (statuses as of 11/12/2021) [facility] History of Past illness Narrative* Problem Noted Date Resolved Date Encounter for screening mammogram for breast can cer 09/05/2017 09/16/2019 Diabetic eye exam 04/19/2016 09/16/2019 Overview: Last done: 04/08/2016 mild non-proliferative diabetic retinopathy Bilateral carotid artery disease 01/07/2011 09/16/2019 Overview: MRA 12/2013 unchanged from that of 2010. US 03/2016 Rt occluded, Lt 20-40%, US 04/2019 unchanged Anxiety state, unspecified 05/25/200508/30 documented as of this encounter (statuses as of 11/22/2021) [facility] History of Past illness Narrative* Problem Noted Date Resolved Date Encounter for screening mammogram for breast can cer 09/05/2017 09/16/2019 Diabetic eye exam 04/19/2016 09/16/2019 Overview: Last done: 04/08/2016 mild non-proliferative diabetic retinopathy Bilateral carotid artery disease 01/07/2011 09/16/2019 Overview: MRA 12/2013 unchanged from that of 2010. US 03/2016 Rt occluded, Lt 20-40%, US 04/2019 unchanged Anxiety state, unspecified 05/25/200508/30 documented as of this encounter (statuses as of 11/29/2021) [facility] History of Past illness Narrative* Problem Noted Date Resolved Date Encounter for screening mammogram for breast can cer 09/05/2017 09/16/2019 Diabetic eye exam 04/19/2016 09/16/2019 Overview: Last done: 04/08/2016 mild non-proliferative diabetic retinopathy Bilateral carotid artery disease 01/07/2011 09/16/2019 Overview: MRA 12/2013 unchanged from that of 2010. US 03/2016 Rt occluded, Lt 20-40%, US 04/2019 unchanged Anxiety state, unspecified 05/25/200508/30 documented as of this encounter (statuses as of 12/16/2021) [facility] History of Past illness Narrative* Problem Noted Date Resolved Date Encounter for screening mammogram for breast can cer 09/05/2017 09/16/2019 Diabetic eye exam 04/19/2016 09/16/2019 Overview: Last done: 04/08/2016 mild non-proliferative diabetic retinopathy Bilateral carotid artery disease 01/07/2011 09/16/2019 Overview: MRA 12/2013 unchanged from that of 2010. US 03/2016 Rt occluded, Lt 20-40%, US 04/2019 unchanged Anxiety state, unspecified 05/25/200508/30 documented as of this encounter (statuses as of 12/17/2021) [facility] History of Past illness Narrative* Problem Noted Date Resolved Date Encounter for screening mammogram for breast can cer 09/05/2017 09/16/2019 Diabetic eye exam 04/19/2016 09/16/2019 Overview: Last done: 04/08/2016 mild non-proliferative diabetic retinopathy Bilateral carotid artery disease 01/07/2011 09/16/2019 Overview: MRA 12/2013 unchanged from that of 2010. US 03/2016 Rt occluded, Lt 20-40%, US 04/2019 unchanged Anxiety state, unspecified 05/25/200508/30 documented as of this encounter (statuses as of 12/28/2021) [facility] History of Past illness Narrative* Problem Noted Date Resolved Date Encounter for screening mammogram for breast can cer 09/05/2017 09/16/2019 Diabetic eye exam 04/19/2016 09/16/2019 Overview: Last done: 04/08/2016 mild non-proliferative diabetic retinopathy Bilateral carotid artery disease 01/07/2011 09/16/2019 Overview: MRA 12/2013 unchanged from that of 2010. US 03/2016 Rt occluded, Lt 20-40%, US 04/2019 unchanged Anxiety state, unspecified 05/25/200508/30 documented as of this encounter (statuses as of 12/29/2021) [facility] History of Past illness Narrative* Problem Noted Date Resolved Date Encounter for screening mammogram for breast can cer 09/05/2017 09/16/2019 Diabetic eye exam 04/19/2016 09/16/2019 Overview: Last done: 04/08/2016 mild non-proliferative diabetic retinopathy Bilateral carotid artery disease 01/07/2011 09/16/2019 Overview: MRA 12/2013 unchanged from that of 2010. US 03/2016 Rt occluded, Lt 20-40%, US 04/2019 unchanged Anxiety state, unspecified 05/25/200508/30 documented as of this encounter (statuses as of 02/08/2022) [facility] History of Past illness Narrative* Problem Noted Date Resolved Date Encounter for screening mammogram for breast can cer 09/05/2017 09/16/2019 Diabetic eye exam 04/19/2016 09/16/2019 Overview: Last done: 04/08/2016 mild non-proliferative diabetic retinopathy Bilateral carotid artery disease 01/07/2011 09/16/2019 Overview: MRA 12/2013 unchanged from that of 2010. US 03/2016 Rt occluded, Lt 20-40%, US 04/2019 unchanged Anxiety state, unspecified 05/25/200508/30 documented as of this encounter (statuses as of 02/10/2022) [facility] History of Past illness Narrative* Problem Noted Date Resolved Date Encounter for screening mammogram for breast can cer 09/05/2017 09/16/2019 Diabetic eye exam 04/19/2016 09/16/2019 Overview: Last done: 04/08/2016 mild non-proliferative diabetic retinopathy Bilateral carotid artery disease 01/07/2011 09/16/2019 Overview: MRA 12/2013 unchanged from that of 2010. US 03/2016 Rt occluded, Lt 20-40%, US 04/2019 unchanged Anxiety state, unspecified 05/25/200508/30 documented as of this encounter (statuses as of 02/10/2022) [facility] of Past illness Narrative* Problem Noted Date Resolved Date Encounter for screening mammogram for breast can cer 09/05/2017 09/16/2019 Diabetic eye exam 04/19/2016 09/16/2019 Overview: Last done: 04/08/2016 mild non-proliferative diabetic retinopathy Bilateral carotid artery disease 01/07/2011 09/16/2019 Overview: MRA 12/2013 unchanged from that of 2010. US 03/2016 Rt occluded, Lt 20-40%, US 04/2019 unchanged Anxiety state, unspecified 05/25/200508/30 documented as of this encounter (statuses as of 02/11/2022) [facility] of Past illness Narrative* Problem Noted Date Resolved Date Encounter for screening mammogram for breast can cer 09/05/2017 09/16/2019 Diabetic eye exam 04/19/2016 09/16/2019 Overview: Last done: 04/08/2016 mild non-proliferative diabetic retinopathy Bilateral carotid artery disease 01/07/2011 09/16/2019 Overview: MRA 12/2013 unchanged from that of 2010. US 03/2016 Rt occluded, Lt 20-40%, US 04/2019 unchanged Anxiety state, unspecified 05/25/200508/30 documented as of this encounter (statuses as of 02/15/2022) [facility] of Past illness Narrative* Problem Noted Date Resolved Date Encounter for screening mammogram for breast can cer 09/05/2017 09/16/2019 Diabetic eye exam 04/19/2016 09/16/2019 Overview: Last done: 04/08/2016 mild non-proliferative diabetic retinopathy Bilateral carotid artery disease 01/07/2011 09/16/2019 Overview: MRA 12/2013 unchanged from that of 2010. US 03/2016 Rt occluded, Lt 20-40%, US 04/2019 unchanged Anxiety state, unspecified 05/25/200508/30 documented as of this encounter (statuses as of 02/17/2022) [facility] of Past illness Narrative* Problem Noted Date Resolved Date Encounter for screening mammogram for breast can cer 09/05/2017 09/16/2019 Diabetic eye exam 04/19/2016 09/16/2019 Overview: Last done: 04/08/2016 mild non-proliferative diabetic retinopathy Bilateral carotid artery disease 01/07/2011 09/16/2019 Overview: MRA 12/2013 unchanged from that of 2010. US 03/2016 Rt occluded, Lt 20-40%, US 04/2019 unchanged Anxiety state, unspecified 05/25/200508/30 documented as of this encounter (statuses as of 02/17/2022) [facility] of Past illness Narrative* Problem Noted Date Resolved Date Encounter for screening mammogram for breast can cer 09/05/2017 09/16/2019 Diabetic eye exam 04/19/2016 09/16/2019 Overview: Last done: 04/08/2016 mild non-proliferative diabetic retinopathy Bilateral carotid artery disease 01/07/2011 09/16/2019 Overview: MRA 12/2013 unchanged from that of 2010. US 03/2016 Rt occluded, Lt 20-40%, US 04/2019 unchanged Anxiety state, unspecified 05/25/200508/30 documented as of this encounter (statuses as of 03/01/2022) [facility] of Past illness Narrative* Problem Noted Date Resolved Date Encounter for screening mammogram for breast can cer 09/05/2017 09/16/2019 Diabetic eye exam 04/19/2016 09/16/2019 Overview: Last done: 04/08/2016 mild non-proliferative diabetic retinopathy Bilateral carotid artery disease 01/07/2011 09/16/2019 Overview: MRA 12/2013 unchanged from that of 2010. US 03/2016 Rt occluded, Lt 20-40%, US 04/2019 unchanged Anxiety state, unspecified 05/25/200508/30 documented as of this encounter (statuses as of 03/02/2022) [facility]01-23-2018 History of Past illness Narrative* Problem Noted Date Resolved Date Encounter for screening mammogram for breast can cer 09/05/2017 09/16/2019 Diabetic eye exam 04/19/2016 09/16/2019 Overview: Last done: 04/08/2016 mild non-proliferative diabetic retinopathy Bilateral carotid artery disease 01/07/2011 09/16/2019 Overview: MRA 12/2013 unchanged from that of 2010. US 03/2016 Rt occluded, Lt 20-40%, US 04/2019 unchanged Anxiety state, unspecified 05/25/200508/30 documented as of this encounter (statuses as of 03/04/2022) [facility]2018 History of Past illness Narrative* Problem Noted Date Resolved Date Encounter for screening mammogram for breast can cer 09/05/2017 09/16/2019 Diabetic eye exam 04/19/2016 09/16/2019 Overview: Last done: 04/08/2016 mild non-proliferative diabetic retinopathy Bilateral carotid artery disease 01/07/2011 09/16/2019 Overview: MRA 12/2013 unchanged from that of 2010. US 03/2016 Rt occluded, Lt 20-40%, US 04/2019 unchanged Anxiety state, unspecified 05/25/200508/30 documented as of this encounter (statuses as of 03/24/2022) [facility]2018 History of Past illness Narrative* Problem Noted Date Resolved Date Encounter for screening mammogram for breast can cer 09/05/2017 09/16/2019 Diabetic eye exam 04/19/2016 09/16/2019 Overview: Last done: 04/08/2016 mild non-proliferative diabetic retinopathy Bilateral carotid artery disease 01/07/2011 09/16/2019 Overview: MRA 12/2013 unchanged from that of 2010. US 03/2016 Rt occluded, Lt 20-40%, US 04/2019 unchanged Anxiety state, unspecified 05/25/200508/30 documented as of this encounter (statuses as of 03/31/2022) [facility] History of Past illness Narrative* Problem Noted Date Resolved Date Encounter for screening mammogram for breast can cer 09/05/2017 09/16/2019 Diabetic eye exam 04/19/2016 09/16/2019 Overview: Last done: 04/08/2016 mild non-proliferative diabetic retinopathy Bilateral carotid artery disease 01/07/2011 09/16/2019 Overview: MRA 12/2013 unchanged from that of 2010. US 03/2016 Rt occluded, Lt 20-40%, US 04/2019 unchanged Anxiety state, unspecified 05/25/200508/30 documented as of this encounter (statuses as of 05/16/2022) [facility] History of Past illness Narrative* Problem Noted Date Resolved Date Encounter for screening mammogram for breast can cer 09/05/2017 09/16/2019 Diabetic eye exam 04/19/2016 09/16/2019 Overview: Last done: 04/08/2016 mild non-proliferative diabetic retinopathy Bilateral carotid artery disease 01/07/2011 09/16/2019 Overview: MRA 12/2013 unchanged from that of 2010. US 03/2016 Rt occluded, Lt 20-40%, US 04/2019 unchanged Anxiety state, unspecified 05/25/200508/30 documented as of this encounter (statuses as of 05/17/2022) [facility] History of Past illness Narrative* Problem Noted Date Resolved Date Encounter for screening mammogram for breast can cer 09/05/2017 09/16/2019 Diabetic eye exam 04/19/2016 09/16/2019 Overview: Last done: 04/08/2016 mild non-proliferative diabetic retinopathy Bilateral carotid artery disease 01/07/2011 09/16/2019 Overview: MRA 12/2013 unchanged from that of 2010. US 03/2016 Rt occluded, Lt 20-40%, US 04/2019 unchanged Anxiety state, unspecified 05/25/200508/30 documented as of this encounter (statuses as of 05/23/2022) [facility] History of Past illness Narrative* Problem Noted Date Resolved Date Encounter for screening mammogram for breast can cer 09/05/2017 09/16/2019 Diabetic eye exam 04/19/2016 09/16/2019 Overview: Last done: 04/08/2016 mild non-proliferative diabetic retinopathy Bilateral carotid artery disease 01/07/2011 09/16/2019 Overview: MRA 12/2013 unchanged from that of 2010. US 03/2016 Rt occluded, Lt 20-40%, US 04/2019 unchanged Anxiety state, unspecified 05/25/200508/30 documented as of this encounter (statuses as of 06/02/2022) [facility] History of Past illness Narrative* Problem Noted Date Resolved Date Encounter for screening mammogram for breast can cer 09/05/2017 09/16/2019 Diabetic eye exam 04/19/2016 09/16/2019 Overview: Last done: 04/08/2016 mild non-proliferative diabetic retinopathy Bilateral carotid artery disease 01/07/2011 09/16/2019 Overview: MRA 12/2013 unchanged from that of 2010. US 03/2016 Rt occluded, Lt 20-40%, US 04/2019 unchanged Anxiety state, unspecified 05/25/200508/30 documented as of this encounter (statuses as of 06/06/2022) [facility]2018 History of Past illness Narrative* Problem Noted Date Resolved Date Encounter for screening mammogram for breast can cer 09/05/2017 09/16/2019 Diabetic eye exam 04/19/2016 09/16/2019 Overview: Last done: 04/08/2016 mild non-proliferative diabetic retinopathy Bilateral carotid artery disease 01/07/2011 09/16/2019 Overview: MRA 12/2013 unchanged from that of 2010. US 03/2016 Rt occluded, Lt 20-40%, US 04/2019 unchanged Anxiety state, unspecified 05/25/200508/30 documented as of this encounter (statuses as of 06/06/2022) [facility]2018 History of Past illness Narrative* Problem Noted Date Resolved Date Encounter for screening mammogram for breast can cer 09/05/2017 09/16/2019 Diabetic eye exam 04/19/2016 09/16/2019 Overview: Last done: 04/08/2016 mild non-proliferative diabetic retinopathy Bilateral carotid artery disease 01/07/2011 09/16/2019 Overview: MRA 12/2013 unchanged from that of 2010. US 03/2016 Rt occluded, Lt 20-40%, US 04/2019 unchanged Anxiety state, unspecified 05/25/200508/30 documented as of this encounter (statuses as of 06/22/2022) [facility] History of Past illness Narrative* Problem Noted Date Resolved Date Encounter for screening mammogram for breast can cer 09/05/2017 09/16/2019 Diabetic eye exam 04/19/2016 09/16/2019 Overview: Last done: 04/08/2016 mild non-proliferative diabetic retinopathy Bilateral carotid artery disease 01/07/2011 09/16/2019 Overview: MRA 12/2013 unchanged from that of 2010. US 03/2016 Rt occluded, Lt 20-40%, US 04/2019 unchanged Anxiety state, unspecified 05/25/200508/30 documented as of this encounter (statuses as of 06/22/2022) [facility] History of Past illness Narrative* Problem Noted Date Resolved Date Encounter for screening mammogram for breast can cer 09/05/2017 09/16/2019 Diabetic eye exam 04/19/2016 09/16/2019 Overview: Last done: 04/08/2016 mild non-proliferative diabetic retinopathy Bilateral carotid artery disease 01/07/2011 09/16/2019 Overview: MRA 12/2013 unchanged from that of 2010. US 03/2016 Rt occluded, Lt 20-40%, US 04/2019 unchanged Anxiety state, unspecified 05/25/200508/30 documented as of this encounter (statuses as of 06/28/2022) [facility] History of Past illness Narrative* Problem Noted Date Resolved Date Encounter for screening mammogram for breast can cer 09/05/2017 09/16/2019 Diabetic eye exam 04/19/2016 09/16/2019 Overview: Last done: 04/08/2016 mild non-proliferative diabetic retinopathy Bilateral carotid artery disease 01/07/2011 09/16/2019 Overview: MRA 12/2013 unchanged from that of 2010. US 03/2016 Rt occluded, Lt 20-40%, US 04/2019 unchanged Anxiety state, unspecified 05/25/200508/30 documented as of this encounter (statuses as of 07/26/2022) [facility]2018 History of Past illness Narrative* Problem Noted Date Resolved Date Encounter for screening mammogram for breast can cer 09/05/2017 09/16/2019 Diabetic eye exam 04/19/2016 09/16/2019 Overview: Last done: 04/08/2016 mild non-proliferative diabetic retinopathy Bilateral carotid artery disease 01/07/2011 09/16/2019 Overview: MRA 12/2013 unchanged from that of 2010. US 03/2016 Rt occluded, Lt 20-40%, US 04/2019 unchanged Anxiety state, unspecified 05/25/200508/30 documented as of this encounter (statuses as of 08/02/2022) [facility] History of Past illness Narrative* Problem Noted Date Resolved Date Encounter for screening mammogram for breast can cer 09/05/2017 09/16/2019 Diabetic eye exam 04/19/2016 09/16/2019 Overview: Last done: 04/08/2016 mild non-proliferative diabetic retinopathy Bilateral carotid artery disease 01/07/2011 09/16/2019 Overview: MRA 12/2013 unchanged from that of 2010. US 03/2016 Rt occluded, Lt 20-40%, US 04/2019 unchanged Anxiety state, unspecified 05/25/200508/30 documented as of this encounter (statuses as of 08/05/2022) [facility] History of Past illness Narrative* Problem Noted Date Resolved Date Encounter for screening mammogram for breast can cer 09/05/2017 09/16/2019 Diabetic eye exam 04/19/2016 09/16/2019 Overview: Last done: 04/08/2016 mild non-proliferative diabetic retinopathy Bilateral carotid artery disease 01/07/2011 09/16/2019 Overview: MRA 12/2013 unchanged from that of 2010. US 03/2016 Rt occluded, Lt 20-40%, US 04/2019 unchanged Anxiety state, unspecified 05/25/200508/30 documented as of this encounter (statuses as of 08/14/2022) [place] [id number] History of Past illness Narrative* Problem Noted Date Resolved Date Encounter for screening mammogram for breast can cer 09/05/2017 09/16/2019 Diabetic eye exam 04/19/2016 09/16/2019 Overview: Last done: 04/08/2016 mild non-proliferative diabetic retinopathy Bilateral carotid artery disease 01/07/2011 09/16/2019 Overview: MRA 12/2013 unchanged from that of 2010. US 03/2016 Rt occluded, Lt 20-40%, US 04/2019 unchanged Anxiety state, unspecified 05/25/200508/30 documented as of this encounter (statuses as of 08/16/2022) [facility] History of Past illness Narrative* Problem Noted Date Resolved Date Encounter for screening mammogram for breast can cer 09/05/2017 09/16/2019 Diabetic eye exam 04/19/2016 09/16/2019 Overview: Last done: 04/08/2016 mild non-proliferative diabetic retinopathy Bilateral carotid artery disease 01/07/2011 09/16/2019 Overview: MRA 12/2013 unchanged from that of 2010. US 03/2016 Rt occluded, Lt 20-40%, US 04/2019 unchanged Anxiety state, unspecified 05/25/200508/30 documented as of this encounter (statuses as of 08/19/2022) [facility] History of Past illness Narrative* Problem Noted Date Resolved Date Encounter for screening mammogram for breast can cer 09/05/2017 09/16/2019 Diabetic eye exam 04/19/2016 09/16/2019 Overview: Last done: 04/08/2016 mild non-proliferative diabetic retinopathy Bilateral carotid artery disease 01/07/2011 09/16/2019 Overview: MRA 12/2013 unchanged from that of 2010. US 03/2016 Rt occluded, Lt 20-40%, US 04/2019 unchanged Anxiety state, unspecified 05/25/200508/30 documented as of this encounter (statuses as of 08/20/2022) [place] [id number] History of Past illness Narrative* Problem Noted Date Resolved Date Encounter for screening mammogram for breast can cer 09/05/2017 09/16/2019 Diabetic eye exam 04/19/2016 09/16/2019 Overview: Last done: 04/08/2016 mild non-proliferative diabetic retinopathy Bilateral carotid artery disease 01/07/2011 09/16/2019 Overview: MRA 12/2013 unchanged from that of 2010. US 03/2016 Rt occluded, Lt 20-40%, US 04/2019 unchanged Anxiety state, unspecified 05/25/200508/30 documented as of this encounter (statuses as of 08/26/2022) [facility]2018 History of Past illness Narrative* Problem Noted Date Resolved Date Encounter for screening mammogram for breast can cer 09/05/2017 09/16/2019 Diabetic eye exam 04/19/2016 09/16/2019 Overview: Last done: 04/08/2016 mild non-proliferative diabetic retinopathy Bilateral carotid artery disease 01/07/2011 09/16/2019 Overview: MRA 12/2013 unchanged from that of 2010. US 03/2016 Rt occluded, Lt 20-40%, US 04/2019 unchanged Anxiety state, unspecified 05/25/200508/30 documented as of this encounter (statuses as of 08/30/2022) [facility]2018 History of Past illness Narrative* Problem Noted Date Resolved Date Encounter for screening mammogram for breast can cer 09/05/2017 09/16/2019 Diabetic eye exam 04/19/2016 09/16/2019 Overview: Last done: 04/08/2016 mild non-proliferative diabetic retinopathy Bilateral carotid artery disease 01/07/2011 09/16/2019 Overview: MRA 12/2013 unchanged from that of 2010. US 03/2016 Rt occluded, Lt 20-40%, US 04/2019 unchanged Anxiety state, unspecified 05/25/200508/30 documented as of this encounter (statuses as of 08/31/2022) [facility] History of Past illness Narrative* Problem Noted Date Resolved Date Encounter for screening mammogram for breast can cer 09/05/2017 09/16/2019 Diabetic eye exam 04/19/2016 09/16/2019 Overview: Last done: 04/08/2016 mild non-proliferative diabetic retinopathy Bilateral carotid artery disease 01/07/2011 09/16/2019 Overview: MRA 12/2013 unchanged from that of 2010. US 03/2016 Rt occluded, Lt 20-40%, US 04/2019 unchanged Anxiety state, unspecified 05/25/200508/30 documented as of this encounter (statuses as of 09/06/2022) [facility]2018 History of Past illness Narrative* Problem Noted Date Resolved Date Encounter for screening mammogram for breast can cer 09/05/2017 09/16/2019 Diabetic eye exam 04/19/2016 09/16/2019 Overview: Last done: 04/08/2016 mild non-proliferative diabetic retinopathy Bilateral carotid artery disease 01/07/2011 09/16/2019 Overview: MRA 12/2013 unchanged from that of 2010. US 03/2016 Rt occluded, Lt 20-40%, US 04/2019 unchanged Anxiety state, unspecified 05/25/200508/30 documented as of this encounter (statuses as of 10/03/2022) [facility] History of Past illness Narrative* Problem Noted Date Resolved Date Encounter for screening mammogram for breast can cer 09/05/2017 09/16/2019 Diabetic eye exam 04/19/2016 09/16/2019 Overview: Last done: 04/08/2016 mild non-proliferative diabetic retinopathy Bilateral carotid artery disease 01/07/2011 09/16/2019 Overview: MRA 12/2013 unchanged from that of 2010. US 03/2016 Rt occluded, Lt 20-40%, US 04/2019 unchanged Anxiety state, unspecified 05/25/200508/30 documented as of this encounter (statuses as of 10/04/2022) [facility] History of Past illness Narrative* Problem Noted Date Resolved Date Encounter for screening mammogram for breast can cer 09/05/2017 09/16/2019 Diabetic eye exam 04/19/2016 09/16/2019 Overview: Last done: 04/08/2016 mild non-proliferative diabetic retinopathy Bilateral carotid artery disease 01/07/2011 09/16/2019 Overview: MRA 12/2013 unchanged from that of 2010. US 03/2016 Rt occluded, Lt 20-40%, US 04/2019 unchanged Anxiety state, unspecified 05/25/200508/30 documented as of this encounter (statuses as of 10/08/2022) [facility] History of Past illness Narrative* Problem Noted Date Resolved Date Encounter for screening mammogram for breast can cer 09/05/2017 09/16/2019 Diabetic eye exam 04/19/2016 09/16/2019 Overview: Last done: 04/08/2016 mild non-proliferative diabetic retinopathy Bilateral carotid artery disease 01/07/2011 09/16/2019 Overview: MRA 12/2013 unchanged from that of 2010. US 03/2016 Rt occluded, Lt 20-40%, US 04/2019 unchanged Anxiety state, unspecified 05/25/200508/30 documented as of this encounter (statuses as of 10/08/2022) [facility] History of Past illness Narrative* Problem Noted Date Resolved Date Encounter for screening mammogram for breast can cer 09/05/2017 09/16/2019 Diabetic eye exam 04/19/2016 09/16/2019 Overview: Last done: 04/08/2016 mild non-proliferative diabetic retinopathy Bilateral carotid artery disease 01/07/2011 09/16/2019 Overview: MRA 12/2013 unchanged from that of 2010. US 03/2016 Rt occluded, Lt 20-40%, US 04/2019 unchanged Anxiety state, unspecified 05/25/200508/30 documented as of this encounter (statuses as of 10/25/2022) [facility] History of Past illness Narrative* Problem Noted Date Resolved Date Encounter for screening mammogram for breast can cer 09/05/2017 09/16/2019 Diabetic eye exam 04/19/2016 09/16/2019 Overview: Last done: 04/08/2016 mild non-proliferative diabetic retinopathy Bilateral carotid artery disease 01/07/2011 09/16/2019 Overview: MRA 12/2013 unchanged from that of 2010. US 03/2016 Rt occluded, Lt 20-40%, US 04/2019 unchanged Anxiety state, unspecified 05/25/200508/30 documented as of this encounter (statuses as of 10/27/2022) [facility] History of Past illness Narrative* Problem Noted Date Resolved Date Encounter for screening mammogram for breast can cer 09/05/2017 09/16/2019 Diabetic eye exam 04/19/2016 09/16/2019 Overview: Last done: 04/08/2016 mild non-proliferative diabetic retinopathy Bilateral carotid artery disease 01/07/2011 09/16/2019 Overview: MRA 12/2013 unchanged from that of 2010. US 03/2016 Rt occluded, Lt 20-40%, US 04/2019 unchanged Anxiety state, unspecified 05/25/200508/30 documented as of this encounter (statuses as of 11/07/2022) [facility] History of Past illness Narrative* Problem Noted Date Resolved Date Encounter for screening mammogram for breast can cer 09/05/2017 09/16/2019 Diabetic eye exam 04/19/2016 09/16/2019 Overview: Last done: 04/08/2016 mild non-proliferative diabetic retinopathy Bilateral carotid artery disease 01/07/2011 09/16/2019 Overview: MRA 12/2013 unchanged from that of 2010. US 03/2016 Rt occluded, Lt 20-40%, US 04/2019 unchanged Anxiety state, unspecified 05/25/200508/30 documented as of this encounter (statuses as of 11/07/2022) [facility] History of Past illness Narrative* Problem Noted Date Resolved Date Encounter for screening mammogram for breast can cer 09/05/2017 09/16/2019 Diabetic eye exam 04/19/2016 09/16/2019 Overview: Last done: 04/08/2016 mild non-proliferative diabetic retinopathy Bilateral carotid artery disease 01/07/2011 09/16/2019 Overview: MRA 12/2013 unchanged from that of 2010. US 03/2016 Rt occluded, Lt 20-40%, US 04/2019 unchanged Anxiety state, unspecified 05/25/200508/30 documented as of this encounter (statuses as of 11/08/2022) [facility] History of Past illness Narrative* Problem Noted Date Resolved Date Encounter for screening mammogram for breast can cer 09/05/2017 09/16/2019 Diabetic eye exam 04/19/2016 09/16/2019 Overview: Last done: 04/08/2016 mild non-proliferative diabetic retinopathy Bilateral carotid artery disease 01/07/2011 09/16/2019 Overview: MRA 12/2013 unchanged from that of 2010. US 03/2016 Rt occluded, Lt 20-40%, US 04/2019 unchanged Anxiety state, unspecified 05/25/200508/30 documented as of this encounter (statuses as of 11/15/2022) [place] [id number] History of Past illness Narrative* Problem Noted Date Resolved Date Encounter for screening mammogram for breast can cer 09/05/2017 09/16/2019 Diabetic eye exam 04/19/2016 09/16/2019 Overview: Last done: 04/08/2016 mild non-proliferative diabetic retinopathy Bilateral carotid artery disease 01/07/2011 09/16/2019 Overview: MRA 12/2013 unchanged from that of 2010. US 03/2016 Rt occluded, Lt 20-40%, US 04/2019 unchanged Anxiety state, unspecified 05/25/200508/30 documented as of this encounter (statuses as of 11/16/2022) [facility] History of Past illness Narrative* Problem Noted Date Resolved Date Encounter for screening mammogram for breast can cer 09/05/2017 09/16/2019 Diabetic eye exam 04/19/2016 09/16/2019 Overview: Last done: 04/08/2016 mild non-proliferative diabetic retinopathy Bilateral carotid artery disease 01/07/2011 09/16/2019 Overview: MRA 12/2013 unchanged from that of 2010. US 03/2016 Rt occluded, Lt 20-40%, US 04/2019 unchanged Anxiety state, unspecified 05/25/200508/30 documented as of this encounter (statuses as of 12/01/2022) [facility] History of Past illness Narrative* Problem Noted Date Resolved Date Encounter for screening mammogram for breast can cer 09/05/2017 09/16/2019 Diabetic eye exam 04/19/2016 09/16/2019 Overview: Last done: 04/08/2016 mild non-proliferative diabetic retinopathy Bilateral carotid artery disease 01/07/2011 09/16/2019 Overview: MRA 12/2013 unchanged from that of 2010. US 03/2016 Rt occluded, Lt 20-40%, US 04/2019 unchanged Anxiety state, unspecified 05/25/200508/30 documented as of this encounter (statuses as of 12/02/2022) [address]23-2018 History of Past illness Narrative* Problem Noted Date Resolved Date Encounter for screening mammogram for breast can cer 09/05/2017 09/16/2019 Diabetic eye exam 04/19/2016 09/16/2019 Overview: Last done: 04/08/2016 mild non-proliferative diabetic retinopathy Bilateral carotid artery disease 01/07/2011 09/16/2019 Overview: MRA 12/2013 unchanged from that of 2010. US 03/2016 Rt occluded, Lt 20-40%, US 04/2019 unchanged Anxiety state, unspecified 05/25/200508/30 documented as of this encounter (statuses as of 12/02/2022) [facility] History of Past illness Narrative* Problem Noted Date Resolved Date Encounter for screening mammogram for breast can cer 09/05/2017 09/16/2019 Diabetic eye exam 04/19/2016 09/16/2019 Overview: Last done: 04/08/2016 mild non-proliferative diabetic retinopathy Bilateral carotid artery disease 01/07/2011 09/16/2019 Overview: MRA 12/2013 unchanged from that of 2010. US 03/2016 Rt occluded, Lt 20-40%, US 04/2019 unchanged Anxiety state, unspecified 05/25/200508/30 documented as of this encounter (statuses as of 12/08/2022) [facility] History of Past illness Narrative* Problem Noted Date Resolved Date Encounter for screening mammogram for breast can cer 09/05/2017 09/16/2019 Diabetic eye exam 04/19/2016 09/16/2019 Overview: Last done: 04/08/2016 mild non-proliferative diabetic retinopathy Bilateral carotid artery disease 01/07/2011 09/16/2019 Overview: MRA 12/2013 unchanged from that of 2010. US 03/2016 Rt occluded, Lt 20-40%, US 04/2019 unchanged Anxiety state, unspecified 05/25/200508/30 documented as of this encounter (statuses as of 12/13/2022) [facility] History of Past illness Narrative* Problem Noted Date Resolved Date Encounter for screening mammogram for breast can cer 09/05/2017 09/16/2019 Diabetic eye exam 04/19/2016 09/16/2019 Overview: Last done: 04/08/2016 mild non-proliferative diabetic retinopathy Bilateral carotid artery disease 01/07/2011 09/16/2019 Overview: MRA 12/2013 unchanged from that of 2010. US 03/2016 Rt occluded, Lt 20-40%, US 04/2019 unchanged Anxiety state, unspecified 05/25/200508/30 documented as of this encounter (statuses as of 12/26/2022) [facility] History of Past illness Narrative* Problem Noted Date Resolved Date Encounter for screening mammogram for breast can cer 09/05/2017 09/16/2019 Diabetic eye exam 04/19/2016 09/16/2019 Overview: Last done: 04/08/2016 mild non-proliferative diabetic retinopathy Bilateral carotid artery disease 01/07/2011 09/16/2019 Overview: MRA 12/2013 unchanged from that of 2010. US 03/2016 Rt occluded, Lt 20-40%, US 04/2019 unchanged Anxiety state, unspecified 05/25/200508/30 documented as of this encounter (statuses as of 02/03/2023) [facility] History of Past illness Narrative* Problem Noted Date Resolved Date Encounter for screening mammogram for breast can cer 09/05/2017 09/16/2019 Diabetic eye exam 04/19/2016 09/16/2019 Overview: Last done: 04/08/2016 mild non-proliferative diabetic retinopathy Bilateral carotid artery disease 01/07/2011 09/16/2019 Overview: MRA 12/2013 unchanged from that of 2010. US 03/2016 Rt occluded, Lt 20-40%, US 04/2019 unchanged Anxiety state, unspecified 05/25/200508/30 documented as of this encounter (statuses as of 02/10/2023) [facility] History of Past illness Narrative* Problem Noted Date Resolved Date Encounter for screening mammogram for breast can cer 09/05/2017 09/16/2019 Diabetic eye exam 04/19/2016 09/16/2019 Overview: Last done: 04/08/2016 mild non-proliferative diabetic retinopathy Bilateral carotid artery disease 01/07/2011 09/16/2019 Overview: MRA 12/2013 unchanged from that of 2010. [place] 03/2016 Rt occluded, Lt 20-40%, US 04/2019 unchanged Anxiety state, unspecified 05/25/200508/30 documented as of this encounter (statuses as of 02/17/2023) [facility]-2018 History of Past illness Narrative* Problem Noted Date Diagnosed Date Resolved Date Encounter for screening mamm ogram for breast cancer 09/05/2017 09/16/2019 Diabetic eye exam 04/19/2016 09/16/2019 Overview: Last done: 04/08/2016 mild non-proliferative diabetic retinopathy Bilateral carotid artery disease 01/07/2011 09/16/2019 Overview: MRA 12/2013 unchanged from that of 2010. [place] 03/2016 Rt occluded, Lt 20-40%, US 04/2019 unchanged Anxiety state, unspecified 05/25/2005 0 08/30/2013 documented as of this encounter (statuses as of 04/13/2023) [facility]2018 History of Past illness Narrative* Problem Noted Date Diagnosed Date Resolved Date Encounter for screening mamm ogram for breast cancer 09/05/2017 09/16/2019 Diabetic eye exam 04/19/2016 09/16/2019 Overview: Last done: 04/08/2016 mild non-proliferative diabetic retinopathy Bilateral carotid artery disease 01/07/2011 09/16/2019 Overview: MRA 12/2013 unchanged from that of 2010. [place] 03/2016 Rt occluded, Lt 20-40%, US 04/2019 unchanged Anxiety state, unspecified 05/25/2005 0 08/30/2013 documented as of this encounter (statuses as of 04/14/2023) [facility] History of Past illness Narrative* Problem Noted Date Diagnosed Date Resolved Date Encounter for screening mamm ogram for breast cancer 09/05/2017 09/16/2019 Diabetic eye exam 04/19/2016 09/16/2019 Overview: Last done: 04/08/2016 mild non-proliferative diabetic retinopathy Bilateral carotid artery disease 01/07/2011 09/16/2019 Overview: MRA 12/2013 unchanged from that of 2010. [place] 03/2016 Rt occluded, Lt 20-40%, 04/2019 unchanged Anxiety state, unspecified 05/25/2005 0 08/30/2013 documented as of this encounter (statuses as of 04/24/2023) [facility] History of Past illness Narrative* Problem Noted Date Diagnosed Date Resolved Date Encounter for screening mamm ogram for breast cancer 09/05/2017 09/16/2019 Diabetic eye exam 04/19/2016 09/16/2019 Overview: Last done: 04/08/2016 mild non-proliferative diabetic retinopathy Bilateral carotid artery disease 01/07/2011 09/16/2019 Overview: MRA 12/2013 unchanged from that of 2010. [place] 03/2016 Rt occluded, Lt 20-40%, [place] 04/2019 unchanged Anxiety state, unspecified 05/25/2005 0 08/30/2013 documented as of this encounter (statuses as of 04/29/2023) [facility] History of Past illness Narrative* Problem Noted Date Diagnosed Date Resolved Date Encounter for screening mamm ogram for breast cancer 09/05/2017 09/16/2019 Diabetic eye exam 04/19/2016 09/16/2019 Overview: Last done: 04/08/2016 mild non-proliferative diabetic retinopathy Bilateral carotid artery disease 01/07/2011 09/16/2019 Overview: MRA 12/2013 unchanged from that of 2010. [place] 03/2016 Rt occluded, Lt 20-40%, US 04/2019 unchanged Anxiety state, unspecified 05/25/2005 0 08/30/2013 documented as of this encounter (statuses as of 05/01/2023) [address]23-2018 History of Past illness Narrative* Problem Noted Date Diagnosed Date Resolved Date Encounter for screening mamm ogram for breast cancer 09/05/2017 09/16/2019 Diabetic eye exam 04/19/2016 09/16/2019 Overview: Last done: 04/08/2016 mild non-proliferative diabetic retinopathy Bilateral carotid artery disease 01/07/2011 09/16/2019 Overview: MRA 12/2013 unchanged from that of 2010. [place] 03/2016 Rt occluded, Lt 20-40%, 04/2019 unchanged Anxiety state, unspecified 05/25/2005 0 08/30/2013 documented as of this encounter (statuses as of 05/06/2023) [facility] History of Past illness Narrative* Problem Noted Date Diagnosed Date Resolved Date Encounter for screening mamm ogram for breast cancer 09/05/2017 09/16/2019 Diabetic eye exam 04/19/2016 09/16/2019 Overview: Last done: 04/08/2016 mild non-proliferative diabetic retinopathy Bilateral carotid artery disease 01/07/2011 09/16/2019 Overview: MRA 12/2013 unchanged from that of 2010. [place] 03/2016 Rt occluded, Lt 20-40%, US 04/2019 unchanged Anxiety state, unspecified 05/25/2005 0 08/30/2013 documented as of this encounter (statuses as of 05/08/2023) [facility] History of Past illness Narrative* Problem Noted Date Diagnosed Date Resolved Date Encounter for screening mamm ogram for breast cancer 09/05/2017 09/16/2019 Diabetic eye exam 04/19/2016 09/16/2019 Overview: Last done: 04/08/2016 mild non-proliferative diabetic retinopathy Bilateral carotid artery disease 01/07/2011 09/16/2019 Overview: MRA 12/2013 unchanged from that of 2010. 03/2016 Rt occluded, Lt 20-40%, 04/2019 unchanged Anxiety state, unspecified 05/25/2005 0 08/30/2013 documented as of this encounter (statuses as of 06/06/2023) [facility] History of Past illness Narrative* Problem Noted Date Diagnosed Date Resolved Date Encounter for screening mamm ogram for breast cancer 09/05/2017 09/16/2019 Diabetic eye exam 04/19/2016 09/16/2019 Overview: Last done: 04/08/2016 mild non-proliferative diabetic retinopathy Bilateral carotid artery disease 01/07/2011 09/16/2019 Overview: MRA 12/2013 unchanged from that of 2010. [place] 03/2016 Rt occluded, Lt 20-40%, 04/2019 unchanged Anxiety state, unspecified 05/25/2005 0 08/30/2013 documented as of this encounter (statuses as of 06/06/2023) [facility] History of Past illness Narrative* Problem Noted Date Diagnosed Date Resolved Date Encounter for screening mamm ogram for breast cancer 09/05/2017 09/16/2019 Diabetic eye exam 04/19/2016 09/16/2019 Overview: Last done: 04/08/2016 mild non-proliferative diabetic retinopathy Bilateral carotid artery disease 01/07/2011 09/16/2019 Overview: MRA 12/2013 unchanged from that of 2010. [place] 03/2016 Rt occluded, Lt 20-40%, [place] 04/2019 unchanged Anxiety state, unspecified 05/25/2005 0 08/30/2013 documented as of this encounter (statuses as of 06/09/2023) [facility] History of Past illness Narrative* Problem Noted Date Diagnosed Date Resolved Date Encounter for screening mamm ogram for breast cancer 09/05/2017 09/16/2019 Diabetic eye exam 04/19/2016 09/16/2019 Overview: Last done: 04/08/2016 mild non-proliferative diabetic retinopathy Bilateral carotid artery disease 01/07/2011 09/16/2019 Overview: MRA 12/2013 unchanged from that of 2010. [place] 03/2016 Rt occluded, Lt 20-40%, 04/2019 unchanged Anxiety state, unspecified 05/25/2005 0 08/30/2013 documented as of this encounter (statuses as of 06/21/2023) [facility] History of Past illness Narrative* Problem Noted Date Diagnosed Date Resolved Date Encounter for screening mamm ogram for breast cancer 09/05/2017 09/16/2019 Diabetic eye exam 04/19/2016 09/16/2019 Overview: Last done: 04/08/2016 mild non-proliferative diabetic retinopathy Bilateral carotid artery disease 01/07/2011 09/16/2019 Overview: MRA 12/2013 unchanged from that of 2010. [place] 03/2016 Rt occluded, Lt 20-40%, [place] 04/2019 unchanged Anxiety state, unspecified 05/25/2005 0 08/30/2013 documented as of this encounter (statuses as of 06/23/2023) [facility]2018 History of Past illness Narrative* Problem Noted Date Diagnosed Date Resolved Date Encounter for screening mamm ogram for breast cancer 09/05/2017 09/16/2019 Diabetic eye exam 04/19/2016 09/16/2019 Overview: Last done: 04/08/2016 mild non-proliferative diabetic retinopathy Bilateral carotid artery disease 01/07/2011 09/16/2019 Overview: MRA 12/2013 unchanged from that of 2010. [place] 03/2016 Rt occluded, Lt 20-40%, US 04/2019 unchanged Anxiety state, unspecified 05/25/2005 0 08/30/2013 documented as of this encounter (statuses as of 07/14/2023) [facility] History of Past illness Narrative* Problem Noted Date Diagnosed Date Resolved Date Encounter for screening mamm ogram for breast cancer 09/05/2017 09/16/2019 Diabetic eye exam 04/19/2016 09/16/2019 Overview: Last done: 04/08/2016 mild non-proliferative diabetic retinopathy Bilateral carotid artery disease 01/07/2011 09/16/2019 Overview: MRA 12/2013 unchanged from that of 2010. [place] 03/2016 Rt occluded, Lt 20-40%, [place] 04/2019 unchanged Anxiety state, unspecified 05/25/2005 0 08/30/2013 documented as of this encounter (statuses as of 07/15/2023) [facility] note* Diagnosis Type 2 diabetes mellitus with both eyes affected by mild nonproliferative retinopathy and macular edema, without long-term current use of insulin (HCC)- Primary Dyslipidemia Other and unspecified hyperlipidemia Moyamoya disease Stenosis of carotid artery, unspecified laterality H/O: CVA (cerebrovascular accident) Transient ischemic attack (TIA), and cerebral infarction without residual deficits Gastroesophageal reflux disease without esophagitis Esophageal reflux Recurrent major depressive disorder, remission status unspecified (HCC) Generalized anxiety disorder Migraine with aura and without status migrainosus, not intractable Migraine with aura, without mention of intractable migraine without mention of status migrainosus Mild intermittent asthma without complication Unspecified asthma Alcoholism (HCC) Other and unspecified alcohol dependence, unspecified drinking behavior Allergic rhinitis, unspecified seasonality, unspecified trigger Peripheral arterial disease (HCC) Peripheral vascular disease, unspecified Smoker Tobacco use disorder Vitamin D deficiency Unspecified vitamin D deficiency Acute bilateral low back pain with left-sided sciatica [facility] Diagnosis Urinary frequency- Primary documented in this encounter [facility] note* Diagnosis Exposure to hepatitis- Primary Contact with or exposure to other viral diseases documented in this encounter [facility] note* Diagnosis Vaginal odor- Primary Unspecified symptom associated with female genital organs Vaginal discharge Leukorrhea, not specified as infective Vaginal itching Pruritus of genital organs [facility] Diagnosis Vaginal odor- Primary Unspecified symptom associated with female genital organs [facility]* Diagnosis Yao yao disease Moyamoya disease [facility] Diagnosis Vaginal discharge- Primary Leukorrhea, not specified as infective Urinary frequency [facility] Diagnosis Acute cough- Primary [facility] Diagnosis Type 2 diabetes mellitus with both eyes affected by mild nonproliferative retinopathy and macular edema, without long-term current use of insulin (HCC) [facility]* Diagnosis Microscopic hematuria- Primary Thrombocytopenia (HCC) Thrombocytopenia, unspecified [facility]* Diagnosis Diarrhea, unspecified type- Primary Viral gastroenteritis Intestinal infection due to other organism, not elsewhere classified [facility]* Diagnosis Microscopic hematuria- Primary [facility] Diagnosis Diarrhea, unspecified type- Primary [facility]* Diagnosis Vaginal irritation- Primary Unspecified noninflammatory disorder of vagina [facility]* Diagnosis Type 2 diabetes mellitus without retinopathy (HCC)- Primary Type II or unspecified type diabetes mellitus without mention of complication, not stated as uncontrolled Meibomian gland dysfunction (MGD) of upper and lower lids of both eyes Myopia, bilateral Myopia Regular astigmatism of both eyes Regular astigmatism Presbyopia [facility]* Diagnosis APPOINTMENT CANCELLED- Primary documented [facility] this [facility]* Diagnosis Well adult exam- Primary Routine general medical examination at a health care facility Type 2 diabetes mellitus with both eyes affected by mild nonproliferative retinopathy and macular edema, without long-term current use of insulin (HCC) Dyslipidemia Other and unspecified hyperlipidemia Stenosis of carotid artery, unspecified laterality Moyamoya disease Peripheral arterial disease (HCC) Peripheral vascular disease, unspecified H/O: CVA (cerebrovascular accident) Transient ischemic attack (TIA), and cerebral infarction without residual deficits Migraine with aura and without status migrainosus, not intractable Migraine with aura, without mention of intractable migraine without mention of status migrainosus Mild intermittent asthma without complication Unspecified asthma Gastroesophageal reflux disease without esophagitis Esophageal reflux Recurrent major depressive disorder, remission status unspecified (HCC) Generalized anxiety disorder Smoker Tobacco use disorder Alcoholism (HCC) Other and unspecified alcohol dependence, unspecified drinking behavior Vitamin D deficiency Unspecified vitamin D deficiency Foot callus Corns and callosities Medication management Encounter for long-term (current) use of other medications [facility]* Diagnosis Encounter for screening mammogram for breast cancer [facility] Diagnosis Moyamoya disease- Primary Dysphagia, unspecified type [facility] Diagnosis Moyamoya disease- Primary Acute cystitis without hematuria Acute cystitis Pharyngoesophageal dysphagia Dysphagia, pharyngoesophageal phase documented [facility] this [facility] Diagnosis URI, acute- Primary Acute upper respiratory infections of unspecified site Acute otitis media, left Unspecified otitis media [facility] Diagnosis Vision blurring- Primary Other specified visual disturbances Subconjunctival bleed, bilateral [facility] Diagnosis Urinary frequency- Primary Acute lower UTI Urinary tract infection, site not specified [facility]* Diagnosis Recurrent UTI (urinary tract infection)- Primary Urinary tract infection, site not specified Dysuria Vaginal yeast infection Candidiasis of vulva and vagina [facility] Diagnosis Dysuria- Primary Microscopic hematuria [facility] Diagnosis Viral illness- Primary Unspecified viral infection, in conditions classified elsewhere and of unspecified site [facility] Diagnosis Gross hematuria- Primary Dysuria [facility] Diagnosis URI, acute- Primary Acute upper respiratory infections of unspecified site History of asthma Personal history of other diseases of respiratory system Throat pain [facility]* Diagnosis Vaginal discharge- Primary Leukorrhea, not specified as infective [facility] Diagnosis Gross hematuria- Primary [facility] Diagnosis Vagina itching- Primary Pruritus of genital organs [facility] Diagnosis H/O: CVA (cerebrovascular accident) Transient ischemic attack (TIA), and cerebral infarction without residual deficits Dyslipidemia Other and unspecified hyperlipidemia [facility] Diagnosis Gross hematuria- Primary [facility] Diagnosis Vaginal discharge- Primary Leukorrhea, not specified as infective Vaginal odor Unspecified symptom associated with female genital organs [facility] Diagnosis Vertigo- Primary Dizziness and giddiness Urinary frequency [facility] Diagnosis Urinary frequency- Primary Recurrent UTI (urinary tract infection) Urinary tract infection, site not specified [facility] Diagnosis Sore throat- Primary Acute pharyngitis URI, acute Acute upper respiratory infections of unspecified site [facility] Diagnosis Encounter for screening mammogram for breast cancer [facility] Diagnosis Type 2 diabetes mellitus with both eyes affected by mild nonproliferative retinopathy and macular edema, without long-term current use of insulin (HCC)- Primary [facility] Diagnosis Type 2 diabetes mellitus with both eyes affected by mild nonproliferative retinopathy and macular edema, without long-term current use of insulin (HCC)- Primary [facility]* Diagnosis Ventral hernia without obstruction or gangrene- Primary Ventral hernia, unspecified, without mention of obstruction or gangrene Encounter for immunization Need for other specified prophylactic vaccination against single bacterial disease H/O: CVA (cerebrovascular accident) Transient ischemic attack (TIA), and cerebral infarction without residual deficits Dyslipidemia Other and unspecified hyperlipidemia [facility]* Diagnosis Umbilical hernia without obstruction and without gangrene- Primary Ventral hernia without obstruction or gangrene Ventral hernia, unspecified, without mention of obstruction or gangrene [facility] Diagnosis BPPV (benign paroxysmal positional vertigo), unspecified laterality- Primary [facility] Diagnosis Incisional hernia, without obstruction or gangrene- Primary Incisional hernia without mention of obstruction or gangrene Umbilical hernia without obstruction and without gangrene [facility] Diagnosis Burning with urination- Primary Dysuria Glucosuria Glycosuria documented in this encounter [facility] for referral (narrative)* Diagnostic Procedure Only (Routine) - Pending Review Specialty Diagnoses / Procedures Referred By Quincy baxter Referred To Contact [facility] Diagnoses Encounter for screening mammogram for breast cancer Procedures GABBY SCREENING SCREENING MAMMOGRAPHY BI 2-VIEW BREAST INC CAD Ran Murphy MD [address] [place] [address] [facility] [address] [place] [address] Referral ID Status Reason Start Date Expiration Date Visits Requested Visits Authorized [id number] Pending Review Auto-Generat ed Referral 05/18/2022 06/17/[address] [facility] for referral (narrative)* Diagnostic Procedure Only (Routine) - Pending Review Specialty Diagnoses / Procedures Referred By Quincy baxter Referred To Contact [facility] Diagnoses Encounter for screening mammogram for breast cancer Procedures GABBY SCREENING SCREENING MAMMOGRAPHY BI 2-VIEW BREAST INC CAD Ran Murphy MD [address] [place] [address] [facility] [address] [place] [address] Referral ID Status Reason Start Date Expiration Date Visits Requested Visits Authorized [id number] Pending Review Auto-Generat ed Referral 04/26/2023 05/25/[address] 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] Procedures OH [facility] CATH INTRNL CAROTID ART ANGIO INTRCRNL ART PLACEMENT CATH SELECTIVE INTERNAL CAROTID ARTERY W/ ANGIO IPSILAT INTRACRANIAL CAROTID W/ RAD S&I Referral ID Status Reason Start Date Expiration Date Visits Re quested Visits Authorized [id number] 1 1 [facility] Summary Purpose Family History No Family History Records FoundNo Family History Records FoundNo Family History Records FoundNo Family History Records FoundNo Family History Records Found Advance Directives No Advanced Directives Records FoundLatest Code Status on File Code Status Date Activated Date Inactivated Comments Full Code 11/16/2020 1:30 AM Full Code 10/07/2020 3:07 PM 11/16/2020 1:30 AM Full Code 07/19/2020 12:31 PM 10/07/2020 3:07 PM Health Concerns Infection Onset Date Last Indicated Resolved Time COVID-19 Rule-Out 02/10/2022 02/10/2022 Infection Onset Date Last Indicated Resolved Time COVID-19 Rule-Out 02/10/2022 02/10/2022 02/11/2022 1:02 AM EDT Infection Onset Date Last Indicated Resolved Time COVID-19 Rule-Out 06/21/2022 06/21/2022 06/22/2022 8:39 AM EST Infection Onset Date Last Indicated Resolved Time COVID-19 Rule-Out 06/21/2022 06/21/2022 06/22/2022 8:39 AM EST Infection Onset Date Last Indicated Resolved Time COVID-19 Rule-Out 08/18/2022 08/18/2022 08/19/2022 2:39 AM EST Medications Administered Section Active Administered Medications - up to 3 most recent administrations Medication Order MAR Action Action Date Dose Rate Site fluorescein-benoxinate 0.25-0.4 % 1 Drop (FLURESS) 1 Drop, BOTH EYES, DIRECTED, Starting on My 03/31/22 at 1530, Until Mon04/01/22 at 0329, Administer for applanation tonometry. In the event of a Fluress shortage, administer Foster-Fluor 1 drop into both eyes as directed for applanation tonometry Given 03/31/2022 3:30 PM EDT 1 Drop PHENYLephrine 2.5 % 1 Drop (AK-DILATE, JOSÉ MIGUEL-SYNEPHRINE) 1 Drop, BOTH EYES, DIRECTED, Starting on My 03/31/22 at 1530, Until Mon04/01/22 at 0329, Administer for dilation PROTECT FROM LIGHT Given 03/31/2022 3:30 PM EDT 1 Drop proparacaine 0.5 % 1 Drop (ALCAINE) 1 Drop, BOTH EYES, DIRECTED, Starting on My 03/31/22 at 1530, Until Mon04/01/22 at 0329, Administer for pneumo tonometry, tonopen tonometry, or pachymetry. In the event of a proparacaine shortage, administer tetracaine 0.5% ophthalmic drops 1 drop in the left eye as directed for pneumo tonometry, tonopen tonometry, or pachymetry Given 03/31/2022 3:30 PM EDT 1 Drop tropicamide 1 % 1 Drop (MYDRIACYL) 1 Drop, BOTH EYES, DIRECTED, Starting on Mon03/31/22 at 1530, Until Mon04/01/22 at 0329, Administer for dilation Given 03/31/2022 3:30 PM EDT 1 Drop Inactive Administered Medications - up to 3 most recent administrations Medication Order MAR Action Action Date Dose Rate Site ciprofloxacin HCl 500 mg tab(s) (CIPRO) 500 mg, ORAL, ONCE, 1 dose, On Mon11/07/22 at 1400, One tab prior to procedure Administer 2 hours before or 6 hours after antacids, calcium, iron, zinc or foods containing these items. Tube feedings should be held 1 hour before and 1 hour after administration., Please document the antimicrobial indication: Empiric Given 11/07/2022 2:36 PM EDT 500 mg Oral Reason for Referral Specialty Diagnoses / Procedures Referred By Contact Referred To Contact Ophthalmology / INTERNAL MEDICINE Diagnoses Vision blurring Subconjunctival bleed, bilateral Procedures CONSULT TO OPHTHALMOLOGY OFFICE/OUTPATIENT [facility] 60-74 MINUTES Ran Murphy MD [address] [place] [address] [place] [address] [place] [id number] Referral ID Status Reason Start Date Expiration Date V isits Requested Visits Authorized [id number] Closed PCP Requested Referral 03/21/2022 03/21/2023 1 1 Specialty Diagnoses / Procedures Referred By Quincy t Referred To Contact Urology Diagnoses Dysuria Microscopic hematuria Procedures CONSULT TO UROLOGY OFFICE/OUTPATIENT [facility] 60-74 MINUTES Sherry Marrero PA-C [address] [place] [address] Referral ID Status Reason Start Date Expiration Date Visits Requested Visits Authorized [id number] Authorized PCP Requested Referral 2 08/10/2023 1 1 Specialty Diagnoses / Procedures Referred By Contac t Referred To Contact CT IMAGING Diagnoses Gross hematuria Procedures CT UROGRAM WO/W IVCON CT ABD & PELVIS W/O CONTRST 1+ BODY Leona Webb PA-C [address] [place] [address] Ct Imaging Referral ID Status Reason Start Date Expiration Date V isits Requested Visits Authorized [id number] Open Auto-Generate d Referral 09/02/2022 09/25/2023 1 1 Specialty Diagnoses / Procedures Referred By Contac t Referred To Contact [facility] Diagnoses Vertigo Procedures CONSULT TO PHYSICAL THERAPY PHYSICAL THERAPY EVALUATION HIGH COMPLEX 45 MINS Oziel Chandler APRN.[facility] [address] [place] [address] [facility] [place] [address] Referral ID Status Reason Start Date Expiration Date Visits Requested Visits Authorized [id number] Pending Review Auto-Generat ed Referral 12/08/2022 12/08/2023 1 1 Specialty Diagnoses / Procedures Referred By Contac t Referred To Contact General Surgery Diagnoses Ventral hernia without obstruction or gangrene Procedures CONSULT TO GENERAL SURGERY OFFICE/OUTPATIENT [facility] 60-74 MINUTES Ran Murphy MD [address] [place] [id number] Referral ID Status Reason Start Date Expiration Date Visits Requested Visits Authorized [id number] Authorized PCP Requested Referral 06/04/2024 1 1 Specialty Diagnoses / Procedures Referred By Contac t Referred To Contact General Surgery Diagnoses Ventral hernia without obstruction or gangrene Umbilical hernia without obstruction and without gangrene Procedures CONSULT TO GENERAL SURGERY OFFICE/OUTPATIENT [facility] 60-74 MINUTES Rk Hughes MD [address] [place] [address] Vance Shi MD [address] [place] [address] Referral ID Status Reason Start Date Expiration Date Visits Requested Visits Authorized [id number] Authorized PCP Requested Referral 3 06/05/2024 1 1 Specialty Diagnoses / Procedures Referred By Contac t Referred To Contact [facility] Diagnoses BPPV (benign paroxysmal positional vertigo), unspecified laterality Procedures CONSULT TO PHYSICAL THERAPY PHYSICAL THERAPY EVALUATION HIGH COMPLEX 45 MINS Yulisa Carrillo MD [address] [place] [address] [facility] [address] [place] [address] Referral ID Status Reason Start Date Expiration Date V isits Requested Visits Authorized [id number] Closed Auto-Generate d Referral 06/20/2023 06/19/2024 0 0 Additional Source Comments INFORMATION SOURCE (unrecogn ized section and content) DATE CREATED AUTHOR AUTHOR'S ORGANIZ ATION 10/15/2020 [facility] DATE CREATED AUTHOR AUTHOR'S ORGANIZ ATION 05/15/2022 [facility] DATE CREATED AUTHOR AUTHOR'S ORGANIZ ATION 11/09/2022 [facility] DATE CREATED AUTHOR AUTHOR'S ORGANIZ ATION 08/29/2023 [facility] Source Comments (unrecognize d section and content) In the event this informatio n is protected by the Federal Confidentiality of Alcohol and Drug Abuse Patient Records regulations: The Federal rules restrict any use of the information to criminally investigate or prosecute any alcohol or drug abuse patient.[facility] the event this information is protected by the Federal Confidentiality of Alcohol and Drug Abuse Patient Records regulations: The Federal rules restrict any use of the information to criminally investigate or prosecute any alcohol or drug abuse patient.[facility] HospitalIn the event this information is protected by the Federal Confidentiality of Alcohol and Drug Abuse Patient Records regulations: The Federal rules restrict any use of the information to criminally investigate or prosecute any alcohol or drug abuse patient.[facility] HospitalIn the event this information is protected by the Federal Confidentiality of Alcohol and Drug Abuse Patient Records regulations: The Federal rules restrict any use of the information to criminally investigate or prosecute any alcohol or drug abuse patient.[facility] HospitalIn the event this information is protected by the Federal Confidentiality of Alcohol and Drug Abuse Patient Records regulations: The Federal rules restrict any use of the information to criminally investigate or prosecute any alcohol or drug abuse patient.[facility] HospitalIn the event this information is protected by the Federal Confidentiality of Alcohol and Drug Abuse Patient Records regulations: The Federal rules restrict any use of the information to criminally investigate or prosecute any alcohol or drug abuse patient.[facility] HospitalIn the event this information is protected by the Federal Confidentiality of Alcohol and Drug Abuse Patient Records regulations: The Federal rules restrict any use of the information to criminally investigate or prosecute any alcohol or drug abuse patient.[facility] HospitalIn the event this information is protected by the Federal Confidentiality of Alcohol and Drug Abuse Patient Records regulations: The Federal rules restrict any use of the information to criminally investigate or prosecute any alcohol or drug abuse patient.[facility] HospitalIn the event this information is protected by the Federal Confidentiality of Alcohol and Drug Abuse Patient Records regulations: The Federal rules restrict any use of the information to criminally investigate or prosecute any alcohol or drug abuse patient.[facility] HospitalIn the event this information is protected by the Federal Confidentiality of Alcohol and Drug Abuse Patient Records regulations: The Federal rules restrict any use of the information to criminally investigate or prosecute any alcohol or drug abuse patient.[facility] HospitalIn the event this information is protected by the Federal Confidentiality of Alcohol and Drug Abuse Patient Records regulations: The Federal rules restrict any use of the information to criminally investigate or prosecute any alcohol or drug abuse patient.[facility] HospitalIn the event this information is protected by the Federal Confidentiality of Alcohol and Drug Abuse Patient Records regulations: The Federal rules restrict any use of the information to criminally investigate or prosecute any alcohol or drug abuse patient.[facility] HospitalIn the event this information is protected by the Federal Confidentiality of Alcohol and Drug Abuse Patient Records regulations: The Federal rules restrict any use of the information to criminally investigate or prosecute any alcohol or drug abuse patient.[facility] HospitalIn the event this information is protected by the Federal Confidentiality of Alcohol and Drug Abuse Patient Records regulations: The Federal rules restrict any use of the information to criminally investigate or prosecute any alcohol or drug abuse patient.[facility] HospitalIn the event this information is protected by the Federal Confidentiality of Alcohol and Drug Abuse Patient Records regulations: The Federal rules restrict any use of the information to criminally investigate or prosecute any alcohol or drug abuse patient.[facility] HospitalIn the event this information is protected by the Federal Confidentiality of Alcohol and Drug Abuse Patient Records regulations: The Federal rules restrict any use of the information to criminally investigate or prosecute any alcohol or drug abuse patient.[facility] HospitalIn the event this information is protected by the Federal Confidentiality of Alcohol and Drug Abuse Patient Records regulations: The Federal rules restrict any use of the information to criminally investigate or prosecute any alcohol or drug abuse patient.[facility] HospitalIn the event this information is protected by the Federal Confidentiality of Alcohol and Drug Abuse Patient Records regulations: The Federal rules restrict any use of the information to criminally investigate or prosecute any alcohol or drug abuse patient.[facility] HospitalIn the event this information is protected by the Federal Confidentiality of Alcohol and Drug Abuse Patient Records regulations: The Federal rules restrict any use of the information to criminally investigate or prosecute any alcohol or drug abuse patient.[facility] HospitalIn the event this information is protected by the Federal Confidentiality of Alcohol and Drug Abuse Patient Records regulations: The Federal rules restrict any use of the information to criminally investigate or prosecute any alcohol or drug abuse patient.[facility] HospitalIn the event this information is protected by the Federal Confidentiality of Alcohol and Drug Abuse Patient Records regulations: The Federal rules restrict any use of the information to criminally investigate or prosecute any alcohol or drug abuse patient.[facility] HospitalIn the event this information is protected by the Federal Confidentiality of Alcohol and Drug Abuse Patient Records regulations: The Federal rules restrict any use of the information to criminally investigate or prosecute any alcohol or drug abuse patient.[facility] HospitalIn the event this information is protected by the Federal Confidentiality of Alcohol and Drug Abuse Patient Records regulations: The Federal rules restrict any use of the information to criminally investigate or prosecute any alcohol or drug abuse patient.[facility] HospitalIn the event this information is protected by the Federal Confidentiality of Alcohol and Drug Abuse Patient Records regulations: The Federal rules restrict any use of the information to criminally investigate or prosecute any alcohol or drug abuse patient.[facility] HospitalIn the event this information is protected by the Federal Confidentiality of Alcohol and Drug Abuse Patient Records regulations: The Federal rules restrict any use of the information to criminally investigate or prosecute any alcohol or drug abuse patient.[facility] HospitalIn the event this information is protected by the Federal Confidentiality of Alcohol and Drug Abuse Patient Records regulations: The Federal rules restrict any use of the information to criminally investigate or prosecute any alcohol or drug abuse patient.[facility] HospitalIn the event this information is protected by the Federal Confidentiality of Alcohol and Drug Abuse Patient Records regulations: The Federal rules restrict any use of the information to criminally investigate or prosecute any alcohol or drug abuse patient.[facility] HospitalIn the event this information is protected by the Federal Confidentiality of Alcohol and Drug Abuse Patient Records regulations: The Federal rules restrict any use of the information to criminally investigate or prosecute any alcohol or drug abuse patient.[facility] HospitalIn the event this information is protected by the Federal Confidentiality of Alcohol and Drug Abuse Patient Records regulations: The Federal rules restrict any use of the information to criminally investigate or prosecute any alcohol or drug abuse patient.[facility] HospitalIn the event this information is protected by the Federal Confidentiality of Alcohol and Drug Abuse Patient Records regulations: The Federal rules restrict any use of the information to criminally investigate or prosecute any alcohol or drug abuse patient.[facility] HospitalIn the event this information is protected by the Federal Confidentiality of Alcohol and Drug Abuse Patient Records regulations: The Federal rules restrict any use of the information to criminally investigate or prosecute any alcohol or drug abuse patient.[facility] HospitalIn the event this information is protected by the Federal Confidentiality of Alcohol and Drug Abuse Patient Records regulations: The Federal rules restrict any use of the information to criminally investigate or prosecute any alcohol or drug abuse patient.[facility] HospitalIn the event this information is protected by the Federal Confidentiality of Alcohol and Drug Abuse Patient Records regulations: The Federal rules restrict any use of the information to criminally investigate or prosecute any alcohol or drug abuse patient.[facility] HospitalIn the event this information is protected by the Federal Confidentiality of Alcohol and Drug Abuse Patient Records regulations: The Federal rules restrict any use of the information to criminally investigate or prosecute any alcohol or drug abuse patient.[facility] HospitalIn the event this information is protected by the Federal Confidentiality of Alcohol and Drug Abuse Patient Records regulations: The Federal rules restrict any use of the information to criminally investigate or prosecute any alcohol or drug abuse patient.[facility] HospitalIn the event this information is protected by the Federal Confidentiality of Alcohol and Drug Abuse Patient Records regulations: The Federal rules restrict any use of the information to criminally investigate or prosecute any alcohol or drug abuse patient.[facility] HospitalIn the event this information is protected by the Federal Confidentiality of Alcohol and Drug Abuse Patient Records regulations: The Federal rules restrict any use of the information to criminally investigate or prosecute any alcohol or drug abuse patient.[facility] HospitalIn the event this information is protected by the Federal Confidentiality of Alcohol and Drug Abuse Patient Records regulations: The Federal rules restrict any use of the information to criminally investigate or prosecute any alcohol or drug abuse patient.[facility] HospitalIn the event this information is protected by the Federal Confidentiality of Alcohol and Drug Abuse Patient Records regulations: The Federal rules restrict any use of the information to criminally investigate or prosecute any alcohol or drug abuse patient.[facility] HospitalIn the event this information is protected by the Federal Confidentiality of Alcohol and Drug Abuse Patient Records regulations: The Federal rules restrict any use of the information to criminally investigate or prosecute any alcohol or drug abuse patient.[facility] HospitalIn the event this information is protected by the Federal Confidentiality of Alcohol and Drug Abuse Patient Records regulations: The Federal rules restrict any use of the information to criminally investigate or prosecute any alcohol or drug abuse patient.[facility] HospitalIn the event this information is protected by the Federal Confidentiality of Alcohol and Drug Abuse Patient Records regulations: The Federal rules restrict any use of the information to criminally investigate or prosecute any alcohol or drug abuse patient.[facility] HospitalIn the event this information is protected by the Federal Confidentiality of Alcohol and Drug Abuse Patient Records regulations: The Federal rules restrict any use of the information to criminally investigate or prosecute any alcohol or drug abuse patient.[facility] HospitalIn the event this information is protected by the Federal Confidentiality of Alcohol and Drug Abuse Patient Records regulations: The Federal rules restrict any use of the information to criminally investigate or prosecute any alcohol or drug abuse patient.[facility] HospitalIn the event this information is protected by the Federal Confidentiality of Alcohol and Drug Abuse Patient Records regulations: The Federal rules restrict any use of the information to criminally investigate or prosecute any alcohol or drug abuse patient.[facility] HospitalIn the event this information is protected by the Federal Confidentiality of Alcohol and Drug Abuse Patient Records regulations: The Federal rules restrict any use of the information to criminally investigate or prosecute any alcohol or drug abuse patient.[facility] HospitalIn the event this information is protected by the Federal Confidentiality of Alcohol and Drug Abuse Patient Records regulations: The Federal rules restrict any use of the information to criminally investigate or prosecute any alcohol or drug abuse patient.[facility] HospitalIn the event this information is protected by the Federal Confidentiality of Alcohol and Drug Abuse Patient Records regulations: The Federal rules restrict any use of the information to criminally investigate or prosecute any alcohol or drug abuse patient.[facility] HospitalIn the event this information is protected by the Federal Confidentiality of Alcohol and Drug Abuse Patient Records regulations: The Federal rules restrict any use of the information to criminally investigate or prosecute any alcohol or drug abuse patient.[facility] HospitalIn the event this information is protected by the Federal Confidentiality of Alcohol and Drug Abuse Patient Records regulations: The Federal rules restrict any use of the information to criminally investigate or prosecute any alcohol or drug abuse patient.[facility] HospitalIn the event this information is protected by the Federal Confidentiality of Alcohol and Drug Abuse Patient Records regulations: The Federal rules restrict any use of the information to criminally investigate or prosecute any alcohol or drug abuse patient.[facility] HospitalIn the event this information is protected by the Federal Confidentiality of Alcohol and Drug Abuse Patient Records regulations: The Federal rules restrict any use of the information to criminally investigate or prosecute any alcohol or drug abuse patient.[facility] HospitalIn the event this information is protected by the Federal Confidentiality of Alcohol and Drug Abuse Patient Records regulations: The Federal rules restrict any use of the information to criminally investigate or prosecute any alcohol or drug abuse patient.[facility] HospitalIn the event this information is protected by the Federal Confidentiality of Alcohol and Drug Abuse Patient Records regulations: The Federal rules restrict any use of the information to criminally investigate or prosecute any alcohol or drug abuse patient.[facility] HospitalIn the event this information is protected by the Federal Confidentiality of Alcohol and Drug Abuse Patient Records regulations: The Federal rules restrict any use of the information to criminally investigate or prosecute any alcohol or drug abuse patient.[facility] HospitalIn the event this information is protected by the Federal Confidentiality of Alcohol and Drug Abuse Patient Records regulations: The Federal rules restrict any use of the information to criminally investigate or prosecute any alcohol or drug abuse patient.[facility] HospitalIn the event this information is protected by the Federal Confidentiality of Alcohol and Drug Abuse Patient Records regulations: The Federal rules restrict any use of the information to criminally investigate or prosecute any alcohol or drug abuse patient.[facility] HospitalIn the event this information is protected by the Federal Confidentiality of Alcohol and Drug Abuse Patient Records regulations: The Federal rules restrict any use of the information to criminally investigate or prosecute any alcohol or drug abuse patient.[facility] HospitalIn the event this information is protected by the Federal Confidentiality of Alcohol and Drug Abuse Patient Records regulations: The Federal rules restrict any use of the information to criminally investigate or prosecute any alcohol or drug abuse patient.[facility] HospitalIn the event this information is protected by the Federal Confidentiality of Alcohol and Drug Abuse Patient Records regulations: The Federal rules restrict any use of the information to criminally investigate or prosecute any alcohol or drug abuse patient.[facility] HospitalIn the event this information is protected by the Federal Confidentiality of Alcohol and Drug Abuse Patient Records regulations: The Federal rules restrict any use of the information to criminally investigate or prosecute any alcohol or drug abuse patient.[facility] HospitalIn the event this information is protected by the Federal Confidentiality of Alcohol and Drug Abuse Patient Records regulations: The Federal rules restrict any use of the information to criminally investigate or prosecute any alcohol or drug abuse patient.[facility] HospitalIn the event this information is protected by the Federal Confidentiality of Alcohol and Drug Abuse Patient Records regulations: The Federal rules restrict any use of the information to criminally investigate or prosecute any alcohol or drug abuse patient.[facility] HospitalIn the event this information is protected by the Federal Confidentiality of Alcohol and Drug Abuse Patient Records regulations: The Federal rules restrict any use of the information to criminally investigate or prosecute any alcohol or drug abuse patient.[facility] HospitalIn the event this information is protected by the Federal Confidentiality of Alcohol and Drug Abuse Patient Records regulations: The Federal rules restrict any use of the information to criminally investigate or prosecute any alcohol or drug abuse patient.[facility] HospitalIn the event this information is protected by the Federal Confidentiality of Alcohol and Drug Abuse Patient Records regulations: The Federal rules restrict any use of the information to criminally investigate or prosecute any alcohol or drug abuse patient.[facility] HospitalIn the event this information is protected by the Federal Confidentiality of Alcohol and Drug Abuse Patient Records regulations: The Federal rules restrict any use of the information to criminally investigate or prosecute any alcohol or drug abuse patient.[facility] HospitalIn the event this information is protected by the Federal Confidentiality of Alcohol and Drug Abuse Patient Records regulations: The Federal rules restrict any use of the information to criminally investigate or prosecute any alcohol or drug abuse patient.[facility] HospitalIn the event this information is protected by the Federal Confidentiality of Alcohol and Drug Abuse Patient Records regulations: The Federal rules restrict any use of the information to criminally investigate or prosecute any alcohol or drug abuse patient.[facility] HospitalIn the event this information is protected by the Federal Confidentiality of Alcohol and Drug Abuse Patient Records regulations: The Federal rules restrict any use of the information to criminally investigate or prosecute any alcohol or drug abuse patient.[facility] HospitalIn the event this information is protected by the Federal Confidentiality of Alcohol and Drug Abuse Patient Records regulations: The Federal rules restrict any use of the information to criminally investigate or prosecute any alcohol or drug abuse patient.[facility] HospitalIn the event this information is protected by the Federal Confidentiality of Alcohol and Drug Abuse Patient Records regulations: The Federal rules restrict any use of the information to criminally investigate or prosecute any alcohol or drug abuse patient.[facility] HospitalIn the event this information is protected by the Federal Confidentiality of Alcohol and Drug Abuse Patient Records regulations: The Federal rules restrict any use of the information to criminally investigate or prosecute any alcohol or drug abuse patient.[facility] the event this information is protected by the Federal Confidentiality of Alcohol and Drug Abuse Patient Records regulations: The Federal rules restrict any use of the information to criminally investigate or prosecute any alcohol or drug abuse patient.[facility] HospitalIn the event this information is protected by the Federal Confidentiality of Alcohol and Drug Abuse Patient Records regulations: The Federal rules restrict any use of the information to criminally investigate or prosecute any alcohol or drug abuse patient.[facility] HospitalIn the event this information is protected by the Federal Confidentiality of Alcohol and Drug Abuse Patient Records regulations: The Federal rules restrict any use of the information to criminally investigate or prosecute any alcohol or drug abuse patient.[facility] HospitalIn the event this information is protected by the Federal Confidentiality of Alcohol and Drug Abuse Patient Records regulations: The Federal rules restrict any use of the information to criminally investigate or prosecute any alcohol or drug abuse patient.[facility] HospitalIn the event this information is protected by the Federal Confidentiality of Alcohol and Drug Abuse Patient Records regulations: The Federal rules restrict any use of the information to criminally investigate or prosecute any alcohol or drug abuse patient.[facility] Reason for Visit (unrecogniz ed section and content) Reason Comments Results Reason Comments urinary symptoms Reason Comments Nasal Congestion Rivera pain rated 6 on p ain scale Urinary Frequency burning with urinati on, recent ATB 11/07/2021 Reason Comments requesting lab orders hepatitis Reason Comments Vaginal Discharge Reason Comments Follow Up Reason Comments Results New Medication Reason Comments Vaginal Problem discharge with odor UTI ? urinary frequancy Reason Comments Appointment Cancelled Reason Comments Sore Throat ST and bodyaches x 1 day Reason Onset Date Comments Refill Request 02/11/2022 Reason Comments Patient Update Reason Comments Appointment Reason Comments ED Follow-up Reason Comments Follow Up Vaginal infection, n o discharge at this time Reason Comments Blurred Vision Both Eyes Red Eye Both Eyes Dry Eye(s) Both Eyes Eye Itching Both Eyes Specialty Diagnoses / Procedures Referred By Contact Referred To Contact Ophthalmology / INTERNAL MEDICINE Diagnoses Vision blurring Subconjunctival bleed, bilateral Procedures CONSULT TO OPHTHALMOLOGY OFFICE/OUTPATIENT [facility] 60-74 MINUTES Ran Murphy MD [address] [place] [address] [place] [address] [address] [place] [address] Referral ID Status Reason Start Date Expiration Date V isits Requested Visits Authorized [id number] Closed PCP Requested Referral 03/21/2022 03/21/2023 1 1 Reason Comments Physical Reason Comments Difficulty Swallowing X 1-1.5wks. 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 Affected speech and swallowing. Reason Comments Orders Reason Comments ER F/U Reason Comments Cough Cough, sinus, conges tion, RIVERA and ST x 2 days Reason Comments Referral Request Reason Comments Urinary Frequency x 2 days Reason Comments Patient Question Can Dr. Murphy send orders over to lab for patient because her urine is still dark and she still seems to have an UTI please advise. Reason Comments UTI Reason Comments Throat Problem Reason Comments Results Reason Comments Nausea Pt reported diarrhea , nasal congestion onset AM. Reason Comments Consult Dysuria Hematuria Specialty Diagnoses / Procedures Referred By Contchinedu t Referred To Contact Urology Diagnoses Dysuria Microscopic hematuria Procedures CONSULT TO UROLOGY OFFICE/OUTPATIENT [facility] 60-74 MINUTES Sherry Marrero PA-C [address] [place] [address] Referral ID Status Reason Start Date Expiration Date V isits Requested Visits Authorized [id number] Closed PCP Requested Referral 08/10/2022 08/10/2023 1 1 Reason Comments Pain, Throat Pt reported throat p ain, bilateral ear pain, nasal cogestion, x4 days. Reason Comments Vaginal Infection Reason Comments Follow Up Blood In Urine Reason Onset Date Comments Refill Request 11/07/2022 Reason Comments Cystoscopy-1 Reason Comments ER F/U [facility] Reason Comments Vaginal Problem Reason Comments ED Follow-up Reason Comments requesting a prescription Reason Comments Hernia Reason Comments Urinary Frequency x 1 week Reason Comments ext results ER report Reason Comments Sore Throat With stuffy head x1 day Reason Comments Consult Ventral hernia Specialty Diagnoses / Procedures Referred By Contac t Referred To Contact General Surgery Diagnoses Ventral hernia without obstruction or gangrene Procedures CONSULT TO GENERAL SURGERY OFFICE/OUTPATIENT [facility] 60-74 MINUTES Ran Murphy MD [address] [place] [address] Referral ID Status Reason Start Date Expiration Date V isits Requested Visits Authorized [id number] Closed PCP Requested Referral 06/05/2023 06/04/2024 1 1 Reason Comments ER Discharge Summary Reason Comments Dizziness X 1 week- patient re ports approx 5-7 mos ago treated in ER for this and meclizine was effective. Reason Comments Clinic Prep Reason Comments Consult Specialty Diagnoses / Procedures Referred By Contac t Referred To Contact General Surgery Diagnoses Ventral hernia without obstruction or gangrene Umbilical hernia without obstruction and without gangrene Procedures CONSULT TO GENERAL SURGERY OFFICE/OUTPATIENT [facility] 60-74 MINUTES Rk Hughes MD [address] [place] [address] Vance Shi MD [address] [place] [address] Referral ID Status Reason Start Date Expiration Date V isits Requested Visits Authorized [id number] Closed PCP Requested Referral 06/06/2023 06/05/2024 1 1 Reason Comments Urinary Problem Frequency and burnin g x 4 days Care Teams (unrecognized sec tion and content) Pulp Press Tender Relationship Specialty Start Date End Date Ran Murphy MD [address] [place] [address] PCP - General Family Practice 07/14/15 Pulp Press Tender Relationship Specialty Start Date End Date Ran Murphy MD [address] [place] [address] PCP - General Family Practice 07/14/15 Pulp Press Tender Relationship Specialty Start Date End Date Ran Murphy MD [address] [facility] [place] [address] PCP - General Family Practice 07/14/15 Pulp Press Tender Relationship Specialty Start Date End Date Ran Murphy MD [address] [place] [address], [place] [address] PCP - General Family Practice 07/14/15 Pulp Press Tender Relationship Specialty Start Date End Date Ran Murphy MD [address] [place] [address], [place] [address] PCP - General Family Practice 07/14/15 Pulp Press Tender Relationship Specialty Start Date End Date Ran Murphy MD [address] [place] [address], [place] [address] PCP - General Family Practice 07/14/15 Pulp Press Tender Relationship Specialty Start Date End Date Ran Murphy MD [address] [place] [address] , [place] [address] PCP - General Family Medicine 07/17/20 Maricarmen Yap CNP [address] [facility] [place] [address] Nurse Practitioner - Family 09/01/20 Pulp Press Tender Relationship Specialty Start Date End Date Ran Murphy MD [facility] [place] [address] PCP - General Family Practice 07/14/15 Pulp Press Tender Relationship Specialty Start Date End Date Ran Murphy MD [address] [place] [address], [place] [address] PCP - General Family Practice 07/14/15 Pulp Press Tender Relationship Specialty Start Date End Date Ran Murphy MD [address] [place] [address], [place] [address] PCP - General Family Practice 07/14/15 Pulp Press Tender Relationship Specialty Start Date End Date Ran Murphy MD [address] [facility] [place] [address] PCP - General Family Practice 07/14/15 Pulp Press Tender Relationship Specialty Start Date End Date Ran Murphy MD [facility] [place] [address] PCP - General Family Practice 07/14/15 Pulp Press Tender Relationship Specialty Start Date End Date Ran Murphy MD [facility] [place] [address] PCP - General Family Medicine 07/14/15 Pulp Press Tender Relationship Specialty Start Date End Date Ran Murphy MD [address] [place] [address], [place] [address] PCP - General Family Medicine 07/14/15 Pulp Press Tender Relationship Specialty Start Date End Date Ran Murphy MD [facility] [place] [address] PCP - General Family Medicine 07/14/15 Pulp Press Tender Relationship Specialty Start Date End Date Ran Murphy MD [address] [place] [address], [place] [address] PCP - General Family Medicine 07/14/15 Pulp Press Tender Relationship Specialty Start Date End Date Ran Murphy MD [facility] [place] [address] PCP - General Family Medicine 07/14/15 Pulp Press Tender Relationship Specialty Start Date End Date Ran Murphy MD [address] [place] [address], [place] [address] PCP - General Family Medicine 07/14/15 Pulp Press Tender Relationship Specialty Start Date End Date Ran Murphy MD [address] [place] [address], [place] [address] PCP - General Family Medicine 07/14/15 Pulp Press Tender Relationship Specialty Start Date End Date Ran Murphy MD [address] [facility] [place] [address] PCP - General Family Medicine 07/14/15 Pulp Press Tender Relationship Specialty Start Date End Date Ran Murphy MD [address] [facility] [place] [address] PCP - General Family Medicine 07/14/15 Pulp Press Tender Relationship Specialty Start Date End Date Ran Murphy MD [facility] [place] [address] PCP - General Family Medicine 07/14/15 Pulp Press Tender Relationship Specialty Start Date End Date Ran Murphy MD [facility] [place] [address] PCP - General Family Medicine 07/14/15 Pulp Press Tender Relationship Specialty Start Date End Date Ran Murphy MD [facility] [place] [address] PCP - General Family Medicine 07/14/15 Pulp Press Tender Relationship Specialty Start Date End Date Ran Murphy MD [facility] [place] [address] PCP - General Family Medicine 07/14/15 Pulp Press Tender Relationship Specialty Start Date End Date Ran Murphy MD [facility] [place] [address] PCP - General Family Medicine 07/14/15 Pulp Press Tender Relationship Specialty Start Date End Date Ran Murphy MD [facility] [place] [address] PCP - General Family Medicine 07/14/15 Pulp Press Tender Relationship Specialty Start Date End Date Ran Murphy MD [address] [facility] [place] [address] PCP - General Family Medicine 07/14/15 Pulp Press Tender Relationship Specialty Start Date End Date Ran Murphy MD [address] [facility] [place] [address] PCP - General Family Medicine 07/14/15 Pulp Press Tender Relationship Specialty Start Date End Date Ran Murphy MD [address] [facility] [place] [address] PCP - General Family Medicine 07/14/15 Pulp Press Tender Relationship Specialty Start Date End Date Ran Murphy MD [facility] [place] [address] PCP - General Family Medicine 07/14/15 Pulp Press Tender Relationship Specialty Start Date End Date Ran uMrphy MD [facility] [place] [address] PCP - General Family Medicine 07/14/15 Pulp Press Tender Relationship Specialty Start Date End Date Ran Murphy MD [address] [facility] [place] [address] PCP - General Family Medicine 07/14/15 Pulp Press Tender Relationship Specialty Start Date End Date Ran Murphy MD [address] [place] [address] PCP - General Family Medicine 07/14/15 Pulp Press Tender Relationship Specialty Start Date End Date Ran Murphy MD [address] [place] [address] [place] [address] PCP - General Family Medicine 07/14/15 Pulp Press Tender Relationship Specialty Start Date End Date Ran Murphy MD [address] [place] [address] PCP - General Family Medicine 07/14/15 Pulp Press Tender Relationship Specialty Start Date End Date Ran Murphy MD [address] [place] [address] PCP - General Family Medicine 07/14/15 Pulp Press Tender Relationship Specialty Start Date End Date Ran Murphy MD [address] [place] [address] PCP - General Family Medicine 07/14/15 Pulp Press Tender Relationship Specialty Start Date End Date Ran Murphy MD [address] [place] [address] PCP - General Family Medicine 07/14/15 Pulp Press Tender Relationship Specialty Start Date End Date Ran Murphy MD [address] [place] [address] PCP - General Family Medicine 07/14/15 Pulp Press Tender Relationship Specialty Start Date End Date Ran Murphy MD [address] [place] [address] PCP - General Family Medicine 07/14/15 Pulp Press Tender Relationship Specialty Start Date End Date Ran Murphy MD [address] [place] [address] PCP - General Family Medicine 07/14/15 Pulp Press Tender Relationship Specialty Start Date End Date Ran Murphy MD [address] [place] [address] PCP - General Family Medicine 07/14/15 Scheduled Active and Recently Administ ered Medications (unrecognized section and content) Continuous Medication Order 01/11/2022 01/12/202201/1301/13/2022 sodium chloride 0.9% IV solution Intravenous, at 20 mL/hr, CONTINUOUS, Starting on My 01/13/22 at 0845, Until My 01/13/22 at 1737, Pre-op/Pre-Proc 0935 ($$New Bag$$ - Provider: Alondra Gallardo, RN)1500 (Stopped - Provider: Shabana Love, RN) PRN Medication Order 01/11/2022 01/12/2022 01/13/2022 Heparin (Porcine) in NaCl 2 units/ml premix IV infusion (COMPLETED) CONTINUOUS NEEDED, Starting on My 01/13/22 at 1116, Until My 01/13/22 at 1116, Intra-op/Intra-Proc 1115 ($$New Bag$$ - Provider: Shaunna Kenyon MD)1116 ($$New Bag$$ - Provider: Shaunna Kenyon MD) HYDROmorphone (DILAUDID) injection 0.2 mg 0.2 mg, Intravenous, EVERY 5 MINUTES NEEDED, Starting on My 01/13/22 at 1022, Until My 01/13/22 at 1737, Moderate Pain, Severe Pain, Use as initial dose. Higher dose may be administered if lower dose did not result in adverse effects (RR<10, decrease in level of consciousness) and was previously documented as ineffective. May give a total of 4mg in PACU., Recovery iodixanol (VISIPAQUE) injection 320 mg/mL for [facility] IR (CANCELED) NEEDED, Starting on My 01/13/22 at 1116, Until My 01/13/22 at 1117, Intra-op/Intra-Proc 1116 (Given - Provid er: Shaunna Kenyon MD) lidocaine 2 % injection (CANCELED) NEEDED, Starting on My 01/13/22 at 1030, Until My 01/13/22 at 1117, Intra-op/Intra-Proc 1030 (Given - Provid er: Shaunna Kenyon MD) FOR RECORDS PERTAINING TO PATIENTS WHO ARE OR HAVE BEEN ENROLLED IN A CHEMICAL DEPENDENCY/SUBSTANCEABUSE PROGRAM, SOME INFORMATION MAY BE OMITTED. This clinical summary was aggregated from multiple sources. Caution should be exercised in using it in the provision of clinical care. This summary normalizes information from multiple sources, and as a consequence, information in this document may materially change the coding, format and clinical context of patient data. In addition, data may be omitted in some cases. CLINICAL DECISIONS SHOULD BE BASED ON THE PRIMARY CLINICAL RECORDS. [facility]. provides no warranty or guarantee of the accuracy or completeness of information in this document.
== END 2023-08-30 16:38 | disposition left against medical advice (07) ==
LOC: ED 16:46
PROVIDERS: PCP Family Medicine
DX: R69 Illness, unspecified (principal); Z53.21 Procedure and treatment not carried out due to patient leaving prior to being seen by health care provider

== ENCOUNTER 2023-11-20 19:57 | Emergency (ER) | payer MEDICAID, SELFPAY ==
[2023-11-20 19:59] VITALS: BP 120/96; PULSE 89; RESP 16; TEMP 36.1; O2SAT 96; O2SAT 97
[2023-11-20 20:01] VITALS: BMI 25.3
[2023-11-20 20:23] LABS: Bedside Glucose 218 mg/dL (74-106)
[2023-11-20 21:40] VITALS: BP 124/85; PULSE 72; RESP 16; TEMP 36.7; O2SAT 97
--- NOTE | 2023-11-20 22:56 | EDS_ITS ---
HPI History of Present Illness Chief Complaint: Hyperglycemia Narrative Narrative: 53-year-old female presenting for evaluation of her blood sugar. Patient states she thought her blood sugar was high. Patient states he felt a little bit jittery. She denies chest pain, palpitations, shortness of breath. She denies nausea, vomiting, diarrhea. She denies fevers or chills. She denies polyuria polydipsia, for patient. Patient states she is a long-term diabetic and does not have a glucometer for months. She has not called her PCP for 1. When she felt jittery today she thought maybe her blood sugar was high. She did not have any way to check it. [facility] Medical History Alcohol use disorder Bipolar 2 disorder, major depressive episode CVA (cerebral vascular accident) Diabetic neuropathy DM2 (diabetes mellitus, type 2) Generalized anxiety disorder Hemiplegia and hemiparesis following cerebral infarction affecting left non- dominant side Hiatal hernia HLD (hyperlipidemia) HTN (hypertension) Nicotine use disorder Panic disorder PTSD (post-traumatic stress disorder) Tobacco dependence due to cigarettes Urinary tract infection with hematuria Home Medications clonazepam 2 mg tablet (Klonopin) 2 mg PO TID anxiety 06/15/14 [History Last Taken 07/22/20] clopidogrel 75 mg tablet (Plavix) 75 mg PO QHS heart 07/03/16 [History Last Taken 07/22/20] glimepiride 2 mg tablet 4 mg PO DAILY blood sugar 01/09/17 [History Last Taken 07/22/20] atorvastatin 80 mg tablet (Lipitor) 80 mg PO QHS cholesterol lowering 03/29/18 [History Last Taken 07/22/20] aspirin 81 mg chewable tablet 81 mg PO DAILY@0800 [facility] 07/23/20 [History Last Taken 07/22/20] empagliflozin 25 mg tablet (Jardiance) 40 mg PO DAILY 05/11/22 [History Last Taken Unknown] omeprazole 20 mg capsule,delayed release 20 mg PO Q8H PRN GERD 04/12/23 [History Last Taken Unknown] quetiapine 100 mg tablet (Seroquel) 150 mg PO QHS 04/12/23 [History Last Taken Unknown] dicyclomine 20 mg tablet 20 mg PO TID PRN abdominal pain #14 tabs 06/21/23 [Rx Last Taken Unknown] ondansetron 4 mg disintegrating tablet 4 mg PO Q8H PRN PRN Nausea #10 tabs 06/21/23 [Rx Last Taken Unknown] Allergy/AdvReac Type Severity Reaction Status Date / Time azithromycin Allergy Diarrhea Verified 11/20/23 20:03 doxycycline Allergy Rash Verified 11/20/23 20:03 egg Allergy Unknown Verified 11/20/23 20:03 Penicillins Allergy Rash Verified 11/20/23 20:03 cyclobenzaprine AdvReac Rash Verified 11/20/23 20:03 [From Flexeril] gabapentin AdvReac Other Verified 11/20/23 20:03 Family History Grandmother Cancer Heart disease Myocardial infarction Aortic aneurysm rupture Hypertension Father Myocardial infarction Heart disease Hypertension Surgical History History of hysterectomy S/P cholecystectomy S/P tonsillectomy and adenoidectomy Social History household members: none Smoking Status: Light Smoker (<10/day) substance use type: does not use ROS ROS ED Constitutional Constitutional ED: Denies chills, fever(s) or sweats Eyes Eyes: Denies blurry vision or change in vision ENT ENT ED: Denies ear pain or sore throat Cardiovascular Cardiovascular: Denies chest pain, palpitations or racing heartbeat Respiratory/Chest Respiratory/Chest: Denies cough, dyspnea or sputum Gastrointestinal Gastrointestinal: Denies abdominal pain, constipation, diarrhea, nausea or vomiting Genitourinary Genitourinary ED: Denies dysuria, hematuria or urinary frequency Musculoskeletal Musculoskeletal: Denies arthralgias, myalgias or neck pain Integumentary Denies abscess, Abrasions or rash Neurologic Neurologic: Denies headache(s), paresthesias or weakness Psychiatric Psychiatric: Denies anxiety, depression, suicidal ideation or suicidal thoughts Endocrine Endocrinology: Denies polydipsia or polyuria EXAM Physical Exam Const Vital Signs: 11/20/23 19:59 11/20/23 19:59 11/20/23 20:08 Temperature 97 F L 97 F L Temperature Source Temporal Temporal Pulse Rate 89 89 Respiratory Rate 16 16 Respiratory Effort Normal Non-Labored Respiratory Pattern Normal Blood Pressure 120/96 H 120/96 H Blood Pressure Mean 104 104 Pulse Ox 96 97 Oxygen Delivery Method Room Air Room Air 11/20/23 21:40 Temperature 98.1 F Temperature Source Pulse Rate 72 Respiratory Rate 16 Respiratory Effort Respiratory Pattern Blood Pressure 124/85 H Blood Pressure Mean 98 Pulse Ox 97 Oxygen Delivery Method Positive well nourished General Appearance ED: NAD; Negative for pallor HEENT Reports moist mucous membranes Eyes PERRL and EOMs intact bilaterally Chest Wall inspection of chest normal Resp normal respiratory effort and clear to auscultation bilaterally Auscultation: Negative for rales, rhonchi or wheezes Cardio regular rate and regular rhythm Neuro oriented x3, CN's II-XII intact bilaterally and no sensory deficits noted Sensorium / Orientation: alert Psych mental status grossly normal Skin no rashes or lesions noted General Skin Exam: Negative for jaundice or pallor MDM MDM MDM Narrative Medical decision making narrative: Patient presenting for evaluation of her blood sugar. BGT today was just over 200. Vital signs are normal. Patient requesting glucometer and I did try to refill this. I counseled her if there is any issues with this that she could also call her PCP tomorrow and they be able to fill it. Patient declines any blood work today. Return precautions discussed. Impression: 1. History of diabetes 2. Hyperglycemia Lab Data Labs: Laboratory Results - last 24 hr 11/20/23 20:06 POC Glucose 218 H Discharge Plan Triage Chief Complaint: Hyperglycemia ED Provider: Orlando Williamson Dx/Rx/DC Orders Instructions: ED Diabetic Hyperglycemia Prescriptions: No Action clonazepam [Klonopin] 2 MG tablet 2 mg PO TID clopidogrel [Plavix] 75 MG tablet 75 mg PO QHS glimepiride 2 MG tablet 4 mg PO DAILY Patient Comments: atorvastatin [Lipitor] 80 MG tablet 80 mg PO QHS aspirin 81 MG tablet,chewable 81 mg PO DAILY@0800 Jardiance 25 mg Tablet 40 mg PO DAILY ondansetron [ondansetron] 4 mg tablet,disintegrating 4 mg PO Q8H PRN PRN (Reason: Nausea) Qty: 10 0RF dicyclomine 20 mg tablet 20 mg PO TID PRN (Reason: abdominal pain) Qty: 14 0RF quetiapine [Seroquel] 100 mg tablet 150 mg PO QHS omeprazole 20 mg capsule,delayed release(DR/EC) 20 mg PO Q8H PRN (Reason: GERD) Other Ambulatory Orders: Glucometer (Routine) Timeframe: 1 Day Location: Determined by Patient Ordered By: Dr. Orlando Williamson Primary Care Provider: Ran Dill Referrals: Ran Dill MD [Primary Care Provider] - Disposition Disposition: Home, Self Care Discharge Date/Time: 11/20/23 21:40
== END 2023-11-20 21:40 | disposition home or self-care (01) ==
PROVIDERS: Emergency Provider Student in an Organized Health Care Education/Training Program; PCP Family Medicine; Visit Provider Student in an Organized Health Care Education/Training Program
DX: E11.65 Type 2 diabetes mellitus with hyperglycemia (principal); F17.200 Nicotine dependence, unspecified, uncomplicated; Z86.73 Personal history of transient ischemic attack (TIA), and cerebral infarction without residual deficits
CPT/HCPCS: 82962; 99282

== ENCOUNTER 2024-01-28 12:30 | Emergency (ER) | payer MEDICAID, SELFPAY ==
[2024-01-28 12:30] VITALS: BP 137/93; PULSE 105; RESP 14; TEMP 35.9; O2SAT 99; BMI 24.2
--- NOTE | 2024-01-28 12:57 | RAD_ITS ---
EXAM: XR CHEST, 1 VIEW CLINICAL INDICATION: Neuro deficit, acute, stroke suspected TECHNIQUE: Frontal view of the chest. COMPARISON: 05.16.23 FINDINGS: LUNGS AND PLEURAL SPACES: Unremarkable. No consolidation or edema. No pneumothorax. No effusion. HEART: Unremarkable. Cardiac silhouette not enlarged. MEDIASTINUM: Central airways and mediastinal contour are unremarkable. BONES/JOINTS: Unremarkable. No acute fracture. SOFT TISSUES: Unremarkable. RAD/Chest 1 View IMPRESSION: No radiographic evidence of acute cardiopulmonary disease. Electronically Signed: Mika Holcomb MD at 14:44 EDT ,
--- NOTE | 2024-01-28 12:57 | EKG12_ITS ---
Test Reason : DIZZINESS Blood Pressure : / mmHG Vent. Rate : 077 BPM Atrial Rate : 077 BPM P-R Int : 138 ms QRS Dur : 082 ms QT Int : 406 ms P-R-T Axes : 014 014 048 degrees QTc Int : 459 ms Normal sinus rhythm Cannot rule out Anterior infarct , age undetermined Abnormal ECG Confirmed by ANA PETERSEN, CLARY ([id number]), social media editor DENISSE DEMARCO ([id number]) on 01/29/2024 10:05:24 AM Referred By: Confirmed By:CLARY PEREZ MD
--- NOTE | 2024-01-28 12:58 | CT_ITS ---
We are attempting to reach an attending provider to discuss findings. An addendum with communication details will be sent when the communication is complete. EXAM: CT ANGIOGRAPHY HEAD AND NECK WITH INTRAVENOUS CONTRAST CLINICAL INDICATION: Neuro deficit, acute, stroke suspected TECHNIQUE: [place]/head and neck CT angiography protocol performed with intravenous contrast. This CT exam was performed using one or more of the following dose reduction techniques: automated exposure control, adjustment of the mA and/or kV according to patient size, and/or use of iterative reconstruction technique. MIP reconstructed images were created and reviewed. CONTRAST: IV 100mL Isovue-370 RADIATION DOSE: CTDIvol = 30.71 mGy, DLP = 1516.44 mGy-cm COMPARISON: 06.02.22 FINDINGS: HEAD: RIGHT ANTERIOR CEREBRAL ARTERY: Unremarkable. No occlusion or significant stenosis. Anterior communicating artery is present. No aneurysm. 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 ALL ABOVE CRITERIA BY NASCET. No aneurysm. RIGHT POSTERIOR CEREBRAL ARTERY: Unremarkable. No occlusion or significant stenosis. No aneurysm. RIGHT INTRACRANIAL INTERNAL CAROTID ARTERY: Unremarkable. No significant stenosis. No dissection or occlusion. RIGHT INTRACRANIAL VERTEBRAL ARTERY: Unremarkable. No significant stenosis. No dissection or occlusion. LEFT ANTERIOR CEREBRAL ARTERY: Unremarkable. No occlusion or significant stenosis. No aneurysm. LEFT MIDDLE CEREBRAL ARTERY: Unremarkable. No occlusion or significant stenosis. No aneurysm. LEFT POSTERIOR CEREBRAL ARTERY: Unremarkable. No occlusion or significant stenosis. No aneurysm. LEFT INTRACRANIAL INTERNAL CAROTID ARTERY: Unremarkable. No significant stenosis. No dissection or occlusion. LEFT INTRACRANIAL VERTEBRAL ARTERY: Unremarkable. No significant stenosis. No dissection or occlusion. BASILAR ARTERY: Unremarkable. No occlusion or significant stenosis. No aneurysm. OTHER VASCULATURE: There are calcifications around the carotid artery. These are noted in the cavernous carotid arteries. Normal calvarium. Normal soft tissues. There is calcified plaque formation of the left cavernous carotid artery, with a mild stenosis (less than 50%). ALL ABOVE CRITERIA BY NASCET. No vascular malformation. BRAIN AND EXTRA-AXIAL SPACES: There is mild cerebral atrophy with widening of the extra-axial spaces and ventricular dilatation. There are areas of decreased attenuation within the white matter tracts of the supratentorial brain, consistent with microvascular disease changes. Normal basal ganglia and thalami. Normal brainstem. There is mild cerebellar atrophy. NECK: RIGHT COMMON CAROTID ARTERY: Unremarkable. No significant stenosis. No dissection or occlusion. RIGHT EXTRACRANIAL INTERNAL CAROTID ARTERY: There is mild atherosclerotic plaque formation of the origin of the right internal carotid artery with less than 50% cross sectional diameter stenosis. ALL ABOVE CRITERIA BY NASCET. No dissection or occlusion. RIGHT EXTERNAL CAROTID ARTERY: Unremarkable. No occlusion. RIGHT EXTRACRANIAL VERTEBRAL ARTERY: Unremarkable. No significant stenosis. No dissection or occlusion. LEFT COMMON CAROTID ARTERY: Unremarkable. No significant stenosis. No dissection or occlusion. LEFT EXTRACRANIAL INTERNAL CAROTID ARTERY: There is mild atherosclerotic plaque formation of the origin of the left internal carotid artery with less than 50% cross sectional diameter stenosis. ALL ABOVE CRITERIA BY NASCET. No dissection or occlusion. LEFT EXTERNAL CAROTID ARTERY: Unremarkable. No occlusion. LEFT EXTRACRANIAL VERTEBRAL ARTERY: Unremarkable. No significant stenosis. No dissection or occlusion. BRACHIOCEPHALIC AND SUBCLAVIAN ARTERIES: Unremarkable as visualized. No occlusion or significant stenosis. LUNG APICES: Unremarkable as visualized. HEAD and NECK: BONES/JOINTS: Left and right temporal craniotomy changes. No discrete lytic or blastic abnormalities. SOFT TISSUES: Unremarkable. OTHER FINDINGS: Post-processing of the images was performed, with axial imaging and 3D reconstruction. MIPS images were obtained. CAROTID STENOSIS REFERENCE USING NASCET CRITERIA: % ICA stenosis = (1 - narrowest ICA diameter/diameter of distal cervical ICA) x 100. Mild - <50% stenosis. Moderate - 50-69% stenosis. Severe - 70-94% stenosis. Near occlusion - 95-99% stenosis. Occluded - 100% stenosis. CT/STROKE CTA Head AND Neck W/Con IMPRESSION: 1. 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 ALL ABOVE CRITERIA BY NASCET. 2. There is mild atherosclerotic plaque formation of the origin of the right internal carotid artery with less than 50% cross sectional diameter stenosis. ALL ABOVE CRITERIA BY NASCET. 3. There is mild atherosclerotic plaque formation of the origin of the left internal carotid artery with less than 50% cross sectional diameter stenosis. ALL ABOVE CRITERIA BY NASCET. 4. There is calcified plaque formation of the left cavernous carotid artery, with a mild stenosis (less than 50%). ALL ABOVE CRITERIA BY NASCET. Critical finding called and case discussed. 01/28/2024 3:20 PM Fabien Electronically Signed: Mika Holcomb MD at 15:21 EDT ,
--- NOTE | 2024-01-28 12:59 | ED.VIS.STROK ---
HPI History of Present Illness Chief Complaint: Weakness Detail of Chief Complaint: Off balance since yesterday evening. Informant: patient Onset/Context/Timing Onset: Today and Yesterday Context: Gradual Onset Timing: Continuous Quality and Location: Positive for Difficulty with Ambulation Current Severity: Mild Maximum Severity: Mild Associated Symptoms Associated Symptoms: Negative for Headache, Nausea, Vomiting or Chest Pain Narrative Narrative: 53-year-old female with history of 2 prior strokes on aspirin and Plavix. Also history of vertigo, anxiety and PTSD with diabetes. States that since yesterday around 6 PM she has had trouble with her balance. Denies any falls or head injury. No headache. No trouble with her speech. No visual changes. States primarily feels off balance. She has had a history of both vertigo and stroke and says it feels more like vertigo but really does not have room spinning that much. No recent illness. No nausea, vomiting or diarrhea. Prior similar symptoms: Yes Recent Illness/Hospitalization: No PFSH [facility] Medical History Hiatal hernia Panic disorder Nicotine use disorder Alcohol use disorder Generalized anxiety disorder PTSD (post-traumatic stress disorder) Bipolar 2 disorder, major depressive episode CVA (cerebral vascular accident) Urinary tract infection with hematuria Tobacco dependence due to cigarettes HLD (hyperlipidemia) Hemiplegia and hemiparesis following cerebral infarction affecting left non-dominant side HTN (hypertension) Diabetic neuropathy DM2 (diabetes mellitus, type 2) Home Medications ?Medication ?Instructions ?Recorded ?Last Taken ?Type clonazepam 2 mg tablet (Klonopin) 2 mg PO TID anxiety 06/15/14 07/22/20 History clopidogrel 75 mg tablet (Plavix) 75 mg PO QHS heart 07/03/16 07/22/20 History glimepiride 2 mg tablet 4 mg PO DAILY blood sugar 01/09/17 07/22/20 History atorvastatin 80 mg tablet (Lipitor) 80 mg PO QHS cholesterol lowering 03/29/18 07/22/20 History aspirin 81 mg chewable tablet 81 mg PO DAILY@0800 heart [facility] 07/23/20 07/22/20 History empagliflozin 25 mg tablet 40 mg PO DAILY 05/11/22 Unknown History (Jardiance) omeprazole 20 mg capsule,delayed 20 mg PO Q8H PRN GERD 04/12/23 Unknown History release quetiapine 100 mg tablet (Seroquel) 150 mg PO QHS 04/12/23 Unknown History dicyclomine 20 mg tablet 20 mg PO TID PRN abdominal pain 06/21/23 Unknown Rx #14 tabs ondansetron 4 mg disintegrating 4 mg PO Q8H PRN PRN Nausea #10 tabs 06/21/23 Unknown Rx tablet Allergy/AdvReac Type Severity Reaction Status Date / Time azithromycin Allergy Diarrhea Verified 01/28/24 12:35 doxycycline Allergy Rash Verified 01/28/24 12:35 egg Allergy Unknown Verified 01/28/24 12:35 Penicillins Allergy Rash Verified 01/28/24 12:35 cyclobenzaprine (From AdvReac Rash Verified 01/28/24 12:35 Flexeril) gabapentin AdvReac Other Verified 01/28/24 12:35 Family History Grandmother Cancer Heart disease Myocardial infarction Aortic aneurysm rupture Hypertension Father Myocardial infarction Heart disease Hypertension Surgical History S/P tonsillectomy and adenoidectomy S/P cholecystectomy History of hysterectomy Social History household members: none Smoking Status: Light Smoker (<10/day) substance use type: does not use ROS ROS ED ROS Narrative Denies recent illness. Review of Systems ROS Unobtainable: Denies due to encephalopathy Constitutional Constitutional ED: Denies chills or fever(s) Eyes Eyes: Denies blurry vision ENT ENT ED: Denies ear pain Cardiovascular Cardiovascular: Denies chest pain or palpitations Respiratory/Chest Respiratory/Chest: Denies cough or dyspnea Gastrointestinal Gastrointestinal: Denies abdominal pain, constipation, diarrhea, melena, nausea or vomiting Genitourinary Genitourinary ED: Denies dysuria or hematuria Musculoskeletal Musculoskeletal: Denies arthralgias Integumentary Denies abscess Neurologic Neurologic: Denies headache(s) Psychiatric Psychiatric: Denies anxiety Endocrine Endocrinology: Denies polydipsia Hematologic/Lymphatic Hematologic/Lymphatic: Denies easy bleeding, easy bruising or lymphadenopathy Allergic/Immunologic Allergic/Immunologic ED: Denies mouth swelling or urticaria EXAM Physical Exam Narrative Exam Narrative: Well-appearing 53-year-old female. Vital signs are stable afebrile. H EENT exam pupils round react light. Extra motions are intact. No facial droop. No slurred speech. Tongue midline. TMs right normal. Left canal with some wax. No signs of trauma or tenderness. Neck nontender. Lungs clear to auscultation bilaterally. Heart regular rhythm no murmur. Chest wall ribs nontender. Abdomen soft nontender. 5-5 chute loader strength. Dorsi plantarflexion intact. [id number]-wa-[id number] and fingertip to nose within normal limits. Neurologic exam normal NIH 0. Answering questions following commands.Hallpike maneuver negative. Did not worsen her symptoms. Const Vital Signs: 01/28/24 12:30 01/28/24 13:26 01/28/24 13:26 Temperature 96.7 F L Temperature Source Temporal Pulse Rate 105 H Respiratory Rate 14 Respiratory Effort Normal Respiratory Pattern Normal Blood Pressure 137/93 H Blood Pressure Mean 107 Pulse Ox 99 Oxygen Delivery Method Room Air Room Air 01/28/24 13:30 01/28/24 14:30 01/28/24 16:00 Temperature Temperature Source Pulse Rate 75 70 60 Respiratory Rate 21 H 15 12 Respiratory Effort Respiratory Pattern Blood Pressure 112/76 114/72 114/83 H Blood Pressure Mean 88 86 93 Pulse Ox 97 97 100 Oxygen Delivery Method Room Air Room Air Room Air Positive well nourished and well developed; Negative for obese, cachectic, contractures or unkempt General Appearance ED: well developed and NAD; Negative for unkempt, cachectic or contractures Nutritional Appearance: Negative for cachectic or obese HEENT Reports moist mucous membranes atraumatic; Negative for trauma Eyes PERRL and EOMs intact bilaterally General Eye ED: Negative for pale conjunctiva or scleral icterus Neck no lymphadenopathy, supple and no JVD General: Negative for tenderness Thyroid: Negative for other Chest Wall inspection of chest normal and palpation of chest normal Chest: Negative for other Resp normal respiratory effort and clear to auscultation bilaterally Effort and Inspection: Negative for retractions Auscultation: Negative for rales, rhonchi, wheezes or diminished lung sounds Cardio no murmurs Rate: regular rate Rhythm: regular rhythm GI normal to inspection, nondistended, normoactive bowel sounds, soft to palpation, non-tender, non-distended and no masses Inspection: Negative for abdominal distention Auscultation: normoactive bowel sounds Palpation: Negative for tender, guarding, hepatomegaly, splenomegaly, mass or rebound tenderness present Back/Spine no CVA tenderness General Back: Negative for CVA tenderness Cervical Spine: Negative for cervical spine tenderness Thoracic Spine / Upper Back: Negative for thoracic spinal tenderness Lumbar Spine / Lower Back: Negative for lumbar spinal tenderness Extremity normal to inspection General Extremety ED: Negative for deformity, edema, tenderness or other findings General Extremity: Negative for deformity, edema or other findings Neuro oriented x3 and CN's II-XII intact bilaterally Sensorium / Orientation: alert, oriented to person, oriented to place and oriented to time; Negative for orientation impaired, confused, lethargic or stuporous Speech: speech normal Motor Exam: strength 5/5 throughout Psych mental status grossly normal Appearance: Negative for unkempt Attitude: No agitated Mood & Affect: Negative for depressed, anxious or tearful Skin no wounds General Skin Exam: Negative for jaundice Rashes: no rashes Trauma: Negative for abrasion or laceration NIHSS NIHSS Initial: 1a Level of Consciousness: 0 1b LOC Questions (Score 2 if aphasic/stupor): 0 1c LOC Commands (Only score 1st attempt): 0 2 Best Gaze (If aphasic, use reflexive mvmts.): 0 3 Visual: 0 4 Facial Palsy: 0 5 Motor Arm Right (UN = amputation/fusion): 0 5 Motor Arm Left: 0 6 Motor Leg Right: 0 6 Motor Leg Left: 0 7 Limb ataxia (Only + if out of proportion): 0 8 Sensory (Aphasia/stupor=0 or 1, coma=2): 0 9 Best Language: 0 10 Dysarthria (mute, coma=2, intubated=UN): 0 11 Extinction and Inattention (only scored if +): 0 Total Score: 0 MDM MDM MDM Narrative Medical decision making narrative: 53-year-old female history of 2 prior strokes also history of vertigo who has had some symptoms being off balance and ataxia since yesterday around 6 PM. Exam is normal in bed. We have not tried a walker as of yet. We will do that. Undergo a stroke workup. She has a negative Hallpike. I will give her an Antivert and not convinced at this time this is vertigo. Repeat exam at 3:57 PM patient doing well. No change. Her initial blood sugar was 705. She is receiving IV fluids will recheck and determine if we have to give her any insulin or other medications for that. Patient is comfortable being discharged home once we address the hyperglycemia issue. Patient is ambulated several times to the bathroom without any difficulty per nursing. Repeat exam patient doing well at 4:42 PM. Exam benign and unchanged. Her sugar is still almost 400 on her repeats blood sugar check after the liter normal saline. She was given 6 units subcu of insulin we will recheck her blood sugar and if it is continues to come down to be discharged home. She does check her sugars closely tonight. Outpatient follow-up. History & Record Review Discussion w/independent historian: Patient Additional record(s) reviewed:: Prior inpatient record, Prior outpatient record, Prior ED visit and Prior labs Lab Data Attestation: I reviewed the patient's lab results. Lab results narrative: White count of 5. H&H 14 and 43. Platelets are slightly low at 118. PT/INR PTT normal. Electrolytes show sodium 131. Gap 10. BUN of 11 creatinine 1.1. Glucose is elevated at 705. Troponin normal at less than 3. Acetone negative. Gap normal. Labs: Laboratory Results - last 24 hr 01/28/24 01/28/24 01/28/24 13:20 13:58 16:24 WBC 5.5 RBC 4.73 Hgb 14.7 Hct 43.3 MCV 91.5 MCH 31.1 MCHC 33.9 RDW Std Deviation 40.1 RDW Coeff of Alrene 12.0 Plt Count 118 L MPV 12.7 H Immature Gran % (Auto) 0.400 Neut % (Auto) 60.1 Lymph % (Auto) 29.8 [place] % (Auto) 5.6 Eos % (Auto) 3.2 Baso % (Auto) 0.9 Absolute Neuts (auto) 3.3 Absolute Lymphs (auto) 1.65 Nucleated RBC % 0 PT 13.8 INR 1.1 APTT 24.7 Sodium 131 L Potassium 4.3 Chloride 97 L Carbon Dioxide 24.0 Anion Gap 10 BUN 11 Creatinine 1.16 H Estim Creat Clear Calc 53.11 Est GFR (MDRD) Af Amer 63 Est GFR (MDRD) Non-Af 52 L BUN/Creatinine Ratio 9.5 L Glucose 705 H* Calcium 9.2 Troponin I High Sens < 3 L Acetone Level NEGATIVE POC Glucose 397 H Radiography Chest X-Ray - ED: 1 View, Read by ED Physician, Read by Radiologist, Heart, Lungs, Mediastinum, Bony Structures, No Acute Disease and Chronic Changes Diagnostic Testing: Clinical Impression(s) from Imaging Studies Chest X-Ray 01/28/24 12:57 IMPRESSION: No radiographic evidence of acute cardiopulmonary disease. Electronically Signed: Mika Holcomb MD at 14:44 EDT , Head/Neck CTA 01/28/24 12:58 IMPRESSION: 1. 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 ALL ABOVE CRITERIA BY NASCET. 2. There is mild atherosclerotic plaque formation of the origin of the right internal carotid artery with less than 50% cross sectional diameter stenosis. ALL ABOVE CRITERIA BY NASCET. 3. There is mild atherosclerotic plaque formation of the origin of the left internal carotid artery with less than 50% cross sectional diameter stenosis. ALL ABOVE CRITERIA BY NASCET. 4. There is calcified plaque formation of the left cavernous carotid artery, with a mild stenosis (less than 50%). ALL ABOVE CRITERIA BY NASCET. Critical finding called and case discussed. 01/28/2024 3:20 PM Conn Electronically Signed: Mika Holcomb MD at 15:21 EDT , ADDENDUM: 01/28/24 1528 IMPRESSION: 1. 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 ALL ABOVE CRITERIA BY NASCET. 2. There is mild atherosclerotic plaque formation of the origin of the right internal carotid artery with less than 50% cross sectional diameter stenosis. ALL ABOVE CRITERIA BY NASCET. 3. There is mild atherosclerotic plaque formation of the origin of the left internal carotid artery with less than 50% cross sectional diameter stenosis. ALL ABOVE CRITERIA BY NASCET. 4. There is calcified plaque formation of the left cavernous carotid artery, with a mild stenosis (less than 50%). ALL ABOVE CRITERIA BY NASCET. Critical finding called and case discussed. 01/28/2024 3:20 PM Fabien Ferguson : The above Results were Read Back by Mika Holcomb MD to Christiano Conn MD, and understanding confirmed on 01/28/2024 15:21:48 (ET). Electronically Signed: Mika Holcomb MD at 15:21 EDT , Chest x-ray, portable, single view, interpreted both by myself and radiologist shows no acute abnormality. Normal cardiac. Normal lung galeas. CTA head and neck shows chronic changes. I discussed this with the radiologist who is reading the CAT scan. He compared with the prior studies and said there is no acute change or worsening. Rhythm Strip Rhythm Strip: Sinus Rhythm Rate: 77 Ectopy: None EKG Initial EKG: Attestation: I personally reviewed and interpreted this EKG as follows: Interpretation: Sinus Rhythm and No Acute Injury Pattern Comments: Normal sinus rhythm rate of 77 no acute signs of PA, ischemia or dysrhythmia. Discharge Plan Triage Chief Complaint: Weakness ED Provider: Christiano Conn Dx/Rx/DC Orders Clinical Impression: Dizziness, Hyperglycemia due to diabetes mellitus, History of stroke, History of vertigo Instructions: High Blood Sugar (Hyperglycemia) Prescriptions: No Action clonazepam [Klonopin] 2 MG tablet 2 mg PO TID clopidogrel [Plavix] 75 MG tablet 75 mg PO QHS glimepiride 2 MG tablet 4 mg PO DAILY Patient Comments: atorvastatin [Lipitor] 80 MG tablet 80 mg PO QHS aspirin 81 MG tablet,chewable 81 mg PO DAILY@0800 Jardiance 25 mg Tablet 40 mg PO DAILY ondansetron [ondansetron] 4 mg tablet,disintegrating 4 mg PO Q8H PRN PRN (Reason: Nausea) Qty: 10 0RF dicyclomine 20 mg tablet 20 mg PO TID PRN (Reason: abdominal pain) Qty: 14 0RF quetiapine [Seroquel] 100 mg tablet 150 mg PO QHS omeprazole 20 mg capsule,delayed release(DR/EC) 20 mg PO Q8H PRN (Reason: GERD) Primary Care Provider: Ran Dill Referrals: Ran Dill MD [Primary Care Provider] - 3-5 Days if not improving Activity Restrictions/Additional Instructions: Your labs and CAT scan look good other than your elevated blood sugar that was initially 705. Plenty of water tonight. Watch her blood sugars closely. Make sure you recheck in an hour before you go to bed. Follow-up with your doctor if not improving. Return if feeling a lot worse. Print Language: Pakistani Disposition Disposition: Home, Self Care
[2024-01-28] MEDS: Meclizine HCl 25 MG Tablet PO (13:21)
[2024-01-28 13:30] VITALS: BP 112/76; PULSE 75; RESP 21; O2SAT 97
[2024-01-28 13:54] LABS: Anion Gap 10 (5-15); BUN 11 mg/dL (7-18); BUN/Creat Ratio 9.5 RATIO (10-20); Calcium,Total 9.2 mg/dL (8.5-10.1); Chloride 97 mmol/L (98-107); Creatinine, Serum 1.16 mg/dL (0.55-1.02); EST Glomerular Filtration Rate 52 mL/min (>60); Est Glom Filt Rate - Afr Amer 63 mL/min (>60); Estimated Creatinine Clearance 53.11 ml/min; Glucose 705 mg/dL (74-106); Potassium 4.3 mmol/L (3.5-5.1); Sodium Level 131 mmol/L (136-145); Troponin-I HS < 3 pg/mL (3.0-54.0)
--- NOTE | 2024-01-28 13:54 | ED.RN ---
Given order to complete NIH assessment by Dr. Conn.
[2024-01-28] MEDS: 0.9% Normal Saline (1000mL) 1,000 ML 999 ML IV (14:04)
[2024-01-28 14:05] LABS: Absolute Lymphocyte Count 1.65 X10^3/uL (0.83-4.51); Absolute Neutrophil Count 3.3 X10^3/uL (2.0-7.7); Basophil# 0.05 X10^3/uL; Basophil% 0.9 % (0-1); Eosinophil# 0.18 X10^3/uL; Eosinophils% 3.2 % (0-5); Hematocrit 43.3 % (37-47); Hemoglobin 14.7 g/dL (12.0-15.0); Lymphocyte # 1.65 X10^3/ul (0.83-4.51); Lymphocyte % 29.8 % (19-41); Mean Corp Hgb Conc 33.9 g/dL (32-36); Mean Corpuscular Hgb 31.1 pg (27.0-32.0); Mean Corpuscular Volume 91.5 fL (81-99); Mean Platelet Vol. 12.7 fl (6.2-12.0); Monocyte# 0.31 X10^3/uL; Monocyte% 5.6 % (0-10); NRBC Flagged by Analyzer 0 % (0-5); Neutrophil # 3.33 X10^3/uL (2.7-7.7); Neutrophil % 60.1 % (47-70); Platelet Count 118 K/mm3 (150-450); RBC Distribution Width SD 40.1 fl (35.1-43.9); Red Blood Count 4.73 M/mm3 (4.2-5.4); White Blood Count 5.5 K/mm3 (4.4-11.0)
[2024-01-28 14:10] LABS: International Normalized Ratio 1.1; Prothrombin Time (Protime)PT. 13.8 SECONDS (11.7-14.9)
[2024-01-28 14:11] LABS: Partial Thromboplast Time 24.7 Seconds (24.1-36.2)
[2024-01-28 14:30] VITALS: BP 114/72; PULSE 70; RESP 15; O2SAT 97
[2024-01-28] MEDS: Ondansetron 4 MG/2 ML Vial IV (15:21)
[2024-01-28 16:00] VITALS: BP 114/83; PULSE 60; RESP 12; O2SAT 100
[2024-01-28] MEDS: Insulin Lispro 100 UNIT/ML INSULN.PEN 6 UNIT SC (16:32)
[2024-01-28 16:41] LABS: Bedside Glucose 397 mg/dL (74-106)
[2024-01-28 17:23] VITALS: BP 108/74; PULSE 58; RESP 15; TEMP 35.7; O2SAT 96
[2024-01-28 17:37] LABS: Bedside Glucose 352 mg/dL (74-106)
== END 2024-01-28 17:28 | disposition home or self-care (01) ==
PROVIDERS: Emergency Provider Emergency Medicine; PCP Family Medicine; Visit Provider Emergency Medicine
DX: R42 Dizziness and giddiness (principal); E11.65 Type 2 diabetes mellitus with hyperglycemia; F17.200 Nicotine dependence, unspecified, uncomplicated; Z86.73 Personal history of transient ischemic attack (TIA), and cerebral infarction without residual deficits
CPT/HCPCS: 70496; 70498; 71045; 80048; 82009; 82962; 84484; 85025; 85610; 85730; 93005; 96361; 96374; 99284; J7030; Q9967; A4216; J2405

== ENCOUNTER 2024-01-29 16:21 | Emergency (ER) | payer MEDICAID, SELFPAY ==
[2024-01-29 16:22] VITALS: BP 136/88; PULSE 84; RESP 18; TEMP 36.4; O2SAT 97; BMI 25.0
--- NOTE | 2024-01-29 16:52 | EDS_ITS ---
HPI <SCOTT Nicole - Last Filed: 01/29/24 20:32> History of Present Illness Chief Complaint: Hyperglycemia Narrative Narrative: Patient presenting today with concerns for hyperglycemia, she reports that she was here yesterday for dizziness and was found to be hyperglycemic with a glucose over 700, she was given IV fluids and insulin and eventually discharged home with a glucose of 349. She tried to check it this afternoon and her glucometer read, high prompting her to come in for evaluation. She reports slight lightheadedness intermittently. She denies any nausea or vomiting. She has a history of T2DM, prior strokes on aspirin and Plavix, vertigo, anxiety, PTSD. PFSH <SCOTT Nicole - Last Filed: 01/29/24 20:32> FOR[facility]LY [facility], [facility] Medical History Hiatal hernia Panic disorder Nicotine use disorder Alcohol use disorder Generalized anxiety disorder PTSD (post-traumatic stress disorder) Bipolar 2 disorder, major depressive episode CVA (cerebral vascular accident) Urinary tract infection with hematuria Tobacco dependence due to cigarettes HLD (hyperlipidemia) Hemiplegia and hemiparesis following cerebral infarction affecting left non- dominant side HTN (hypertension) Diabetic neuropathy DM2 (diabetes mellitus, type 2) Home Medications ?Medication ?Instructions ?Recorded ?Last Taken ?Type clonazepam 2 mg tablet (Klonopin) 2 mg PO TID anxiety 06/15/14 07/22/20 History clopidogrel 75 mg tablet (Plavix) 75 mg PO QHS heart 07/03/16 07/22/20 History glimepiride 2 mg tablet 4 mg PO DAILY blood sugar 01/09/17 07/22/20 History atorvastatin 80 mg tablet (Lipitor) 80 mg PO QHS cholesterol lowering 03/29/18 07/22/20 History aspirin 81 mg chewable tablet 81 mg PO DAILY@0800 heart [facility] 07/23/20 07/22/20 History empagliflozin 25 mg tablet 40 mg PO DAILY 05/11/22 Unknown History (Jardiance) omeprazole 20 mg capsule,delayed 20 mg PO Q8H PRN GERD 04/12/23 Unknown History release quetiapine 100 mg tablet (Seroquel) 150 mg PO QHS 04/12/23 Unknown History dicyclomine 20 mg tablet 20 mg PO TID PRN abdominal pain 06/21/23 Unknown Rx #14 tabs ondansetron 4 mg disintegrating 4 mg PO Q8H PRN PRN Nausea #10 tabs 06/21/23 Unknown Rx tablet Allergy/AdvReac Type Severity Reaction Status Date / Time azithromycin Allergy Diarrhea Verified 01/29/24 16:22 doxycycline Allergy Rash Verified 01/29/24 16:22 egg Allergy Unknown Verified 01/29/24 16:22 Penicillins Allergy Rash Verified 01/29/24 16:22 cyclobenzaprine (From AdvReac Rash Verified 01/29/24 16:22 Flexeril) gabapentin AdvReac Other Verified 01/29/24 16:22 Family History Grandmother Cancer Heart disease Myocardial infarction Aortic aneurysm rupture Hypertension Father Myocardial infarction Heart disease Hypertension Surgical History S/P tonsillectomy and adenoidectomy S/P cholecystectomy History of hysterectomy Social History household members: none Smoking Status: Light Smoker (<10/day) substance use type: does not use ROS <SCOTT Nicole - Last Filed: 01/29/24 20:32> ROS ED Constitutional Constitutional ED: Denies chills or fever(s) Cardiovascular Cardiovascular: Denies chest pain Respiratory/Chest Respiratory/Chest: Denies cough or dyspnea Gastrointestinal Gastrointestinal: Denies abdominal pain, nausea or vomiting Musculoskeletal Musculoskeletal: Denies arthralgias or myalgias EXAM <SCOTT Nicole - Last Filed: 01/29/24 20:32> Physical Exam Const Vital Signs: 01/29/24 16:22 01/29/24 17:08 01/29/24 18:21 Temperature 97.5 F L Temperature Source Temporal Pulse Rate 84 88 Respiratory Rate 18 16 Respiratory Effort Normal Respiratory Pattern Normal Blood Pressure 136/88 H 160/76 H Blood Pressure Mean 104 104 Pulse Ox 97 98 Oxygen Delivery Method Room Air Room Air 01/29/24 19:45 Temperature 97.9 F Temperature Source Pulse Rate 81 Respiratory Rate 16 Respiratory Effort Respiratory Pattern Blood Pressure 110/73 Blood Pressure Mean 85 Pulse Ox 98 Oxygen Delivery Method Positive well nourished, well developed and no apparent distress General Appearance ED: well developed HEENT Reports normocephalic and head/scalp atraumatic Mouth ED: Yes moist mucous membranes normal Eyes PERRL and EOMs intact bilaterally Neck full ROM and supple Chest Wall inspection of chest normal Resp normal respiratory effort and clear to auscultation bilaterally Cardio regular rate and regular rhythm GI soft to palpation, non-tender, non-distended and no masses Back/Spine normal ROM and normal to inspection Extremity normal to inspection and full ROM Neuro oriented x3, CN's II-XII intact bilaterally, moves all extremities, no focal motor deficits and no sensory deficits noted Sensorium / Orientation: awake and alert Psych mental status grossly normal and thought process normal Skin no rashes or lesions noted and no wounds <Dr. Zen Pena DO - Last Filed: 01/29/24 20:04> Physical Exam Const Vital Signs: 01/29/24 16:22 01/29/24 17:08 01/29/24 18:21 Temperature 97.5 F L Temperature Source Temporal Pulse Rate 84 88 Respiratory Rate 18 16 Respiratory Effort Normal Respiratory Pattern Normal Blood Pressure 136/88 H 160/76 H Blood Pressure Mean 104 104 Pulse Ox 97 98 Oxygen Delivery Method Room Air Room Air 01/29/24 19:45 Temperature 97.9 F Temperature Source Pulse Rate 81 Respiratory Rate 16 Respiratory Effort Respiratory Pattern Blood Pressure 110/73 Blood Pressure Mean 85 Pulse Ox 98 Oxygen Delivery Method MDM <SCOTT Nicole - Last Filed: 01/29/24 20:32> [facility] MDM Narrative Medical decision making narrative: Patient presenting with hyperglycemia. She is well-appearing and in no acute distress. CBC, BMP, and acetone level will be obtained to rule out DKA, electrolyte derangement, leukocytosis, and anemia. She will be given IV fluids. She did become nauseous and was given Zofran. Initial glucose is 445, she was given a dose of insulin and after the fluids her glucose is 282. She is not in DKA. I encouraged that she call her PCP tomorrow to see if any medication adjustments need to be made. Return instructions were discussed and patient discharged home in stable condition. Lab Data Attestation: I reviewed the patient's lab results. Lab results narrative: Sodium 133, platelet count 143, glucose 445, glucose 282, normal anion gap and CO2 Labs: Laboratory Results - last 24 hr 01/29/24 01/29/24 17:00 19:20 WBC 8.3 RBC 4.69 Hgb 14.6 Hct 43.2 MCV 92.1 MCH 31.1 MCHC 33.8 RDW Std Deviation 40.8 RDW Coeff of Arlene 12.2 Plt Count 143 L MPV 12.2 H Immature Gran % (Auto) 0.200 Neut % (Auto) 55.6 Lymph % (Auto) 36.1 Carlton % (Auto) 4.0 Eos % (Auto) 3.1 Baso % (Auto) 1.0 Absolute Neuts (auto) 4.6 Absolute Lymphs (auto) 3.00 Nucleated RBC % 0 Sodium 133 L Potassium 4.5 Chloride 102 Carbon Dioxide 22.0 Anion Gap 9 BUN 10 Creatinine 0.93 Estim Creat Clear Calc 63.67 Est GFR (MDRD) Af Amer 81 Est GFR (MDRD) Non-Af 67 BUN/Creatinine Ratio 10.7 Glucose 445 H Calcium 9.2 Acetone Level NEGATIVE POC Glucose 282 H <Dr. Zen Pena, DO - Last Filed: 01/29/24 20:04> [facility] Lab Data Labs: Laboratory Results - last 24 hr 01/29/24 01/29/24 17:00 19:20 WBC 8.3 RBC 4.69 Hgb 14.6 Hct 43.2 MCV 92.1 MCH 31.1 MCHC 33.8 RDW Std Deviation 40.8 RDW Coeff of Arlene 12.2 Plt Count 143 L MPV 12.2 H Immature Gran % (Auto) 0.200 Neut % (Auto) 55.6 Lymph % (Auto) 36.1 Carlton % (Auto) 4.0 Eos % (Auto) 3.1 Baso % (Auto) 1.0 Absolute Neuts (auto) 4.6 Absolute Lymphs (auto) 3.00 Nucleated RBC % 0 Sodium 133 L Potassium 4.5 Chloride 102 Carbon Dioxide 22.0 Anion Gap 9 BUN 10 Creatinine 0.93 Estim Creat Clear Calc 63.67 Est GFR (MDRD) Af Amer 81 Est GFR (MDRD) Non-Af 67 BUN/Creatinine Ratio 10.7 Glucose 445 H Calcium 9.2 Acetone Level NEGATIVE POC Glucose 282 H Treatment and Re-Evaluation :: I have personally performed a face to face assessment of the patient and have reviewed the SIMIN Note. I performed a substantive portion of the visit including all aspects of the following. My quick findings include: History: Patient presents with elevated blood sugars that was noticed yesterday. Patient states she tried to check her blood sugar at home and her meter read high. Patient states that later in the evening her blood sugar was in the 300s. Patient states that today she checked her sugar again and it read high. Patient was then referred to the emergency department. Patient admits to some nausea. Patient denies any vomiting. Patient admits to some urinary frequency but denies any dysuria or hematuria. Patient denies any fevers or chills. Exam: Vital signs are stable. Patient is afebrile. Patient is in no acute distress. Oral mucosa is pink and moist. Neck is supple. Trachea is midline. There is no JVD. Heart was regular rate and rhythm. Lungs are clear and equal bilaterally. Abdomen is soft. Bowel sounds are normal. There is no t enderness. Cranial nerves II through XII are intact. There are no focal motor or sensory deficits noted. Medical Decision Making: Differential diagnosis includes hyperglycemia, DKA, hyperosmolar hyperglycemic nonketotic state, dehydration, and electrolyte abnormality. CBC will be obtained to assess for leukocytosis and anemia. Basic metabolic profile will be obtained to assess for electrolyte abnormality, hyperglycemia, and renal function. Serum ketones will be obtained to assess for diabetic ketoacidosis. Patient was given IV fluids. Patient was given Zofran. CBC was reviewed and was essentially within normal limits. Platelets were slightly low at 143. Basic metabolic profile was reviewed. Glucose was elevated at 445. CO2 was normal. Anion gap was normal. Serum acetone was reviewed and was negative. Patient was given a dose of insulin here. Patient was blood sugar improved after this. Patient was advised that she should call her primary care physician to schedule an appointment in the next few days. Patient was instructed to continue to monitor her blood sugars at home. Patient was instructed to return if worse in any way. Patient understood and was agreeable with the plan. All questions were answered. Discharge Plan Triage Chief Complaint: Hyperglycemia ED Midlevel Provider: Cindy Lira ED Provider: Zen Pena Dx/Rx/DC Orders Clinical Impression: Hyperglycemia due to diabetes mellitus, Nausea Instructions: ED Diabetic Hyperglycemia Prescriptions: No Action clonazepam [Klonopin] 2 MG tablet 2 mg PO TID clopidogrel [Plavix] 75 MG tablet 75 mg PO QHS glimepiride 2 MG tablet 4 mg PO DAILY Patient Comments: atorvastatin [Lipitor] 80 MG tablet 80 mg PO QHS aspirin 81 MG tablet,chewable 81 mg PO DAILY@0800 Jardiance 25 mg Tablet 40 mg PO DAILY ondansetron [ondansetron] 4 mg tablet,disintegrating 4 mg PO Q8H PRN PRN (Reason: Nausea) Qty: 10 0RF dicyclomine 20 mg tablet 20 mg PO TID PRN (Reason: abdominal pain) Qty: 14 0RF quetiapine [Seroquel] 100 mg tablet 150 mg PO QHS omeprazole 20 mg capsule,delayed release(DR/EC) 20 mg PO Q8H PRN (Reason: GERD) Primary Care Provider: Ran Dill Referrals: Ran Dill MD [Primary Care Provider] - 5-7 Days Activity Restrictions/Additional Instructions: Follow-up with your PCP and return for any worsening of your symptoms. Print Language: Hong Konger Disposition Disposition: Home, Self Care Discharge Date/Time: 01/29/24 19:52
[2024-01-29] MEDS: 0.9% Normal Saline (1000mL) 1,000 ML 999 ML IV (17:00)
[2024-01-29 17:13] LABS: Absolute Neutrophil Count 4.6 X10^3/uL (2.0-7.7); Basophil# 0.08 X10^3/uL; Eosinophil# 0.26 X10^3/uL; Eosinophils% 3.1 % (0-5); Hematocrit 43.2 % (37-47); Hemoglobin 14.6 g/dL (12.0-15.0); Lymphocyte % 36.1 % (19-41); Mean Corp Hgb Conc 33.8 g/dL (32-36); Mean Corpuscular Hgb 31.1 pg (27.0-32.0); Mean Corpuscular Volume 92.1 fL (81-99); Mean Platelet Vol. 12.2 fl (6.2-12.0); Monocyte# 0.33 X10^3/uL; NRBC Flagged by Analyzer 0 % (0-5); Neutrophil # 4.63 X10^3/uL (2.7-7.7); Neutrophil % 55.6 % (47-70); Platelet Count 143 K/mm3 (150-450); RBC Distribution Width CV 12.2 % (11.6-14.6); RBC Distribution Width SD 40.8 fl (35.1-43.9); Red Blood Count 4.69 M/mm3 (4.2-5.4); White Blood Count 8.3 K/mm3 (4.4-11.0)
[2024-01-29 18:19] LABS: Anion Gap 9 (5-15); BUN 10 mg/dL (7-18); BUN/Creat Ratio 10.7 RATIO (10-20); Calcium,Total 9.2 mg/dL (8.5-10.1); Chloride 102 mmol/L (98-107); Creatinine, Serum 0.93 mg/dL (0.55-1.02); EST Glomerular Filtration Rate 67 mL/min (>60); Est Glom Filt Rate - Afr Amer 81 mL/min (>60); Estimated Creatinine Clearance 63.67 ml/min; Glucose 445 mg/dL (74-106); Potassium 4.5 mmol/L (3.5-5.1); Sodium Level 133 mmol/L (136-145)
[2024-01-29 18:21] VITALS: BP 160/76; PULSE 88; RESP 16; O2SAT 98
[2024-01-29] MEDS: Insulin Lispro 100 UNIT/ML INSULN.PEN 6 UNIT SC (18:51)
[2024-01-29] MEDS: Ondansetron 4 MG/2 ML Vial IV (18:51)
[2024-01-29 19:39] LABS: Bedside Glucose 282 mg/dL (74-106)
[2024-01-29 19:45] VITALS: BP 110/73; PULSE 81; RESP 16; TEMP 36.6; O2SAT 98
== END 2024-01-29 19:52 | disposition home or self-care (01) ==
PROVIDERS: Physician Assistant; Emergency Provider Emergency Medicine; PCP Family Medicine; Visit Provider Emergency Medicine
DX: E11.65 Type 2 diabetes mellitus with hyperglycemia (principal); R11.0 Nausea; F17.200 Nicotine dependence, unspecified, uncomplicated; Z86.73 Personal history of transient ischemic attack (TIA), and cerebral infarction without residual deficits
CPT/HCPCS: 80048; 82009; 82962; 85025; 96361; 96374; 99283; J7030; A4216; J2405

== ENCOUNTER → 2024-07-08 | Outpatient (CLI) | payer MEDICAID, SELFPAY ==
--- NOTE | 2024-07-08 10:09 | US_ITS ---
STUDY: ABDOMINAL ULTRASOUND - RIGHT UPPER QUADRANT; ELASTOGRAPHY REASON FOR VISIT: Female, 54 years old. ESQUIVEL TECHNIQUE: Ultrasound evaluation of the right upper quadrant was performed with real-time and static juarez-scale imaging. Point quantification shear wave elastography was performed (AtHoc). TECHNICAL QUALITY: Adequate. COMPARISON: None. FINDINGS: Liver: The liver measures 15.6 cm. There is increased echogenicity consistent with fatty infiltration. The bile ducts are within normal limits. There is hepatic color flow. The direction of portal flow is hepatopetal. There is no demonstrated mass lesion. Median liver stiffness measured 4.8 kPa. Gallbladder: The patient is status post cholecystectomy. Common Bile Duct (C.B.D.): The common bile duct measures 4.8 mm. Pancreas: There is normal echogenicity of the visualized pancreas. There is no demonstrated pancreatic mass or cyst. Right Kidney: Normal size of the right kidney. The right kidney measures 10 cm x 4.5 cm x 4 cm. Normal renal cortex. The right cortex measures 1.0 cm. There is no demonstrated renal mass or cyst. There is no right hydronephrosis. US/ABD Limited w/ Elastography IMPRESSION: 1. Liver stiffness measures 4.8 kPa compatible with F0-F1 (Normal to mild liver fibrosis) Metavir score. Electronically Signed: Alejandro Stanley MD at 10:59 EST ,
== END | disposition home or self-care (01) ==
PROVIDERS: PCP Family Medicine; Referring Provider Physician Assistant; Visit Provider Physician Assistant
DX: K75.81 Nonalcoholic steatohepatitis (NASH) (principal)
CPT/HCPCS: 76705; 76981

== ENCOUNTER 2025-02-16 21:04 | Emergency (ER) | payer MEDICAID, SELFPAY ==
[2025-02-16 21:05] VITALS: BP 143/93; PULSE 78; RESP 16; TEMP 36.8; O2SAT 99; BMI 25.2
[2025-02-16] MEDS: DiphenhydrAMINE 50 MG/ML Syringe IV (21:41)
[2025-02-16] MEDS: Ketorolac 30 MG/ML Syringe IV (21:42)
[2025-02-16] MEDS: 0.9% Normal Saline (1000mL) 1,000 ML 1000 ML IV (21:44)
[2025-02-16 22:53] VITALS: BP 124/85; PULSE 67; RESP 16; TEMP 36.8; O2SAT 99
== END 2025-02-16 22:54 | disposition home or self-care (01) ==
PROVIDERS: Emergency Provider Emergency Medicine; PCP Family Medicine; Visit Provider Emergency Medicine
DX: R51.9 Headache, unspecified (principal); F31.9 Bipolar disorder, unspecified; E11.40 Type 2 diabetes mellitus with diabetic neuropathy, unspecified; F17.210 Nicotine dependence, cigarettes, uncomplicated; Z86.73 Personal history of transient ischemic attack (TIA), and cerebral infarction without residual deficits
CPT/HCPCS: 96361; 96374; 96375; 99283